=== PATIENT | female | born 1950 | race Caucasian/White ===

== ENCOUNTER 2017-02-16 13:50 | Inpatient (IN) ==
[2017-02-16 14:30] LABS: Platelet Count 301 K/mcL (140-400)
[2017-02-16] MEDS ORDERED: Ipratropium/Albuterol Neb 3 ML IH ONE (14:31)
[2017-02-16] MEDS ORDERED: methylPREDNISolone 125 MG/2 ML VIAL IVP ONE (14:31)
[2017-02-16 14:32] LABS: Hemoglobin 9.2 g/dL (11.5-15.4); Mean Corpuscular HGB Conc 27.1 g/dL (31.6-35.5); Mean Corpuscular Hemoglobin 19.5 pg (28.0-33.3); Mean Corpuscular Volume 72.2 fL (83.0-100.0); Red Blood Count 4.71 M/mcL (3.82-4.97); Red Cell Distribution Width 21.7 % (11.5-14.5)
--- NOTE | 2017-02-16 14:33 | Emergency Department Note ---
Disposition Clinical Impression: Acute exacerbation of chronic obstructive pulmonary disease (COPD), Hypoxemia Dyspnea Qualifiers: Dyspnea type: unspecified Qualified Code(s): R06.00 - Dyspnea, unspecified Disposition: Admitted As Inpatient Forms: ED Satisfaction Letter SOB HPI - General Chief Complaint: ED Chest Pain Stated Complaint: CHRISTIANO/CP for 1 week Time Seen by Provider: 02/16/17 14:01 Source: patient Limitations: no limitations Nursing Notes Reviewed: Yes Vital Signs Reviewed: Yes - History of Present Illness Pt Subjective Complaint: shortness of breath Onset (ago): week(s) (2) Severity: moderate Consistency/Duration: constant, gradually worsening Improves with: oxygen, rest, bronchodilators Worsens with: exertion Known history of: COPD Associated symptoms: Reports: wheezing. Denies: chest pain, fever Treatment prior to arrival: oxygen, bronchodilator Cough present: Yes Cough Description: Involuntary Cough Frequency: Intermittent Sputum production: No - Related Data Home oxygen amount: 2 liters Home Medications Medication Instructions Recorded Confirmed Acetaminophen/Diphenhydramine 2 tab PO HS PRN 10/22/16 10/22/16 [Acetaminophen Pm Caplet] Albuterol Sulfate [Albuterol 2 puff IH Q6H PRN 10/22/16 10/22/16 Inhaler] Amantadine HCl [Amantadine] 100 mg PO BID 10/22/16 10/22/16 Amlodipine [Norvasc] 5 mg PO DAILY 10/22/16 10/22/16 Aspirin [Lo-Dose Aspirin EC] 81 mg PO DAILY 10/22/16 10/22/16 Atorvastatin Calcium [Atorvastatin 20 mg PO DAILY 10/22/16 10/22/16 Calcium] Cilostazol [Pletal] 100 mg PO BID 10/22/16 10/22/16 Diclofenac Potassium [Diclofenac 50 mg PO BID 10/22/16 10/22/16 Potassium] Furosemide [Lasix] 20 mg PO DAILY 10/22/16 10/22/16 Gabapentin [Gabapentin] 600 mg PO TID 10/22/16 10/22/16 HydrOXYzine Pamoate [HydrOXYzine 50 mg PO Q6H PRN 10/22/16 10/22/16 Pamoate] Isosorbide DInitrate [Isosorbide 30 mg PO BID 10/22/16 10/22/16 Dinitrate] Loperamide HCl [Anti-Diarrheal] 2 mg PO AD PRN 10/22/16 10/22/16 Magnesium Oxide [Mag-Ox] 400 mg PO BID 10/22/16 10/22/16 Metformin [Glucophage] 1,000 mg PO BID 10/22/16 10/22/16 Metoprolol Tartrate [Metoprolol 25 mg PO BID 10/22/16 10/22/16 Tartrate] Omeprazole [PriLOSEC] 20 mg PO DAILY 10/22/16 10/22/16 Oxycodone HCl/Acetaminophen 1 tab PO Q8H PRN 10/22/16 10/22/16 [Percocet 5-325 mg Tablet] Ranolazine [Ranexa] 1,000 mg PO BID 10/22/16 10/22/16 Rivaroxaban [Xarelto] 20 mg PO DAILY 10/22/16 10/22/16 Umeclidinium Brm/Vilanterol Tr 1 puff IH DAILY 10/22/16 10/22/16 [Anoro Ellipta 62.5-25 Mcg INH] Previous Rx's Medication Instructions Recorded Amlodipine [Norvasc] 10 mg PO DAILY #30 tablet 10/22/16 Atorvastatin [Lipitor] 20 mg PO HS 30 Days 10/22/16 Cilostazol [Pletal] 100 mg PO BID 30 Days 10/22/16 Furosemide [Lasix] 20 mg PO ONCE PRN 30 Days 10/22/16 HydrOXYzine 10 mg PO TID PRN 30 Days 10/22/16 Isosorbide DInitrate [Isosorbide 30 mg PO BID 30 Days 10/22/16 Dinitrate] Metformin HCl [Fortamet] 1,000 mg PO BID 30 Days 10/22/16 Metoprolol [Lopressor] 25 mg PO BID 30 Days 10/22/16 Omeprazole 20 mg PO DAILY 30 Days 10/22/16 Potassium Chloride 10 meq PO DAILY 30 Days 10/22/16 Ranolazine [Ranexa] 500 mg PO BID 30 Days 10/22/16 Rivaroxaban [Xarelto] 20 mg PO DAILY 30 Days 10/22/16 ClonazePAM [Klonopin] 0.5 mg PO TID PRN #60 tablet 10/23/16 Allergies Allergy/AdvReac Type Severity Reaction Status Date / Time No Known Allergies Allergy Verified 02/16/17 13:59 All systems ED: reviewed and negative except as stated. Constitutional: Denies: fever, chills, weakness Gastrointestinal: Reports: abdominal pain Past Medical History - Past Medical History Source: patient, old records reviewed, nursing notes reviewed Medical history: Reports: CHF, COPD, coronary artery disease, DVT, hyperlipidemia, hypertension, myocardial infarction, peripheral artery disease, other Surgical history: Reports: hysterectomy, knee replacement, other, vascular surgery, LE bypass Psychiatric history: Reports: anxiety, depression - Social History Smoking Status: Current every day smoker Smokeless Tobacco Status: No Alcohol use: Reports: none Drug use: Reports: none Physical Exam - General Limitations: no limitations General appearance: alert, in no apparent distress - Head Head exam: atraumatic, normocephalic, normal inspection - Eye Eye exam: Present: normal appearance, PERRL, EOMI - Expanded Eye Exam Pupils: Left: reactive - ENT ENT exam: normal exam, normal oropharynx, mucous membranes moist - Expanded ENT Exam External ear exam: Present: normal external inspection Mouth exam: Present: normal external inspection Teeth exam: Present: normal inspection Throat exam: Present: normal inspection - Neck Neck exam: Present: normal inspection, full ROM, trachea midline - Chest Chest inspection: Present: normal inspection, symmetric chest wall rise - Respiratory Respiratory exam: Present: wheezes (bilat scattered rhonchi), prolonged expiratory phase. Absent: respiratory distress, accessory muscle use - Cardiovascular Cardiovascular exam: Present: regular rate, normal rhythm, normal heart sounds - Abdominal Exam Abdominal exam: Present: soft, tenderness. Absent: distention, guarding, rebound, rigidity Abdominal tenderness: Present: diffuse, mild - Extremities Exam Extremities exam: Present: normal inspection, full ROM. Absent: tenderness, pedal edema - Expanded Upper Extremity Exam Shoulder exam: Present: normal inspection, full ROM Arm exam: Present: normal inspection, full ROM Elbow exam: Present: normal inspection, full ROM Forearm/Wrist exam: Present: normal inspection, full ROM Hand exam: Present: normal inspection, full ROM Vascular exam: Normal: capillary refill, radial pulse - Expanded Lower Extremity Exam Hip/Pelvis exam: Present: normal inspection, full ROM Upper leg exam: Present: normal inspection, full ROM Knee exam: Present: normal inspection, full ROM Lower leg exam: Present: normal inspection, full ROM Ankle exam: Present: normal inspection, full ROM Foot/toe exam: Present: normal inspection, full ROM Neurovascular/Tendon exam: Absent: motor deficit, sensory deficit, tendon deficit - Back Exam Back exam: Present: normal inspection, full ROM. Absent: tenderness - Neurological Exam Neurological exam: Present: alert, oriented X3 - Expanded Neurological Exam Patient oriented to: Present: person, place, time Coma Scale Eye Opening: Spontaneous Coma Scale Motor Response: Obeys Commands Coma Scale Verbal Response: Oriented Coma Scale Total: 15 - Psychiatric Psychiatric exam: Present: normal affect, normal mood - Skin Skin exam: Present: warm, dry, intact, normal color Course - Reevaluation(s) Reevaluation #1: patient O2 sats drop to 80% while sleeping on NC oxygen Time: 16:38 Vital Signs Temperature 97.2 F L 02/16/17 13:57 Pulse Rate 99 02/16/17 13:57 Respiratory Rate 16 02/16/17 13:57 Blood Pressure 142/91 02/16/17 13:57 O2 Sat by Pulse Oximetry 94 L 02/16/17 13:57 Temperature 97.2 F L 02/16/17 13:57 Pulse Rate 99 02/16/17 13:57 Respiratory Rate 20 02/16/17 14:38 Blood Pressure 142/91 02/16/17 13:57 O2 Sat by Pulse Oximetry 98 02/16/17 14:38 Oxygen Delivery Oxygen Delivery Room Air Shortness of Breath/Dyspnea - Differential Diagnosis Likely: acute exacerbation of chronic obstructive airways disease, congestive heart failure, pneumonia, asthma with exacerbation, pulmonary embolism, pneumothorax, arrhythmia - Medical Records Medical records reviewed: Yes I reviewed the patient's medical records. - Lab Data Lab results reviewed: Yes I reviewed the patient's lab results. Result diagrams: 02/16/17 14:23 02/16/17 14:23 Lab Results 02/16/17 02/16/17 02/16/17 Range/Units 14:23 14:23 14:23 WBC 8.2 (4.3-11.1) K/mcL RBC 4.71 (3.82-4.97) M/mcL Hgb 9.2 L (11.5-15.4) g/dL Hct 34.0 L (35.3-44.9) % MCV 72.2 L (83.0-100.0) fL MCH 19.5 L (28.0-33.3) pg MCHC 27.1 L (31.6-35.5) g/dL RDW 21.7 H (11.5-14.5) % Plt Count 301 (140-400) K/mcL MPV 9.0 L (9.4-12.4) fL Seg Neutrophils % 76.0 % Band Neutrophils % 2.0 (0-4) % Lymphocytes % 12.0 % Monocytes % 8.0 % Eosinophils % 2.0 % Neutrophils # 6.4 (1.6-8.9) K/mcL Lymphocytes # 1.0 (0.6-4.6) K/mcL Monocytes # 0.7 (0.0-1.3) K/mcL Eosinophils # 0.2 (0.0-0.6) K/mcL Platelet Estimate Normal (Normal) Polychromasia 1+ A (Not Present) Hypochromasia Present A (Not Present) Poikilocytosis 1+ A (Not Present) Anisocytosis 2+ A (Not Present) Microcytosis Present A (Not Present) PT 44.7 H* (9.4-12.1) Seconds INR 4.0 APTT 40.1 H (26.0-36.0) Seconds Sodium 142 (136-145) mEq/L Potassium 3.3 L (3.5-4.5) mEq/L Chloride 103 (98-109) mEq/L Carbon Dioxide 27 (19-29) mEq/L BUN 8 (7-20) mg/dL Creatinine 0.62 (0.57-1.11) mg/dL Est GFR ( Amer) > 60 (> 60) Est GFR (Non-Af Amer) > 60 (> 60) BUN/Creatinine Ratio 13 (6-26) Glucose 130 H (70-99) mg/dL Calculated Osmolality 294 (280-300) Calcium 9.0 (8.6-10.8) mg/dL Total Bilirubin 0.8 (0.2-1.2) mg/dL Direct Bilirubin 0.3 (0.0-0.5) mg/dL Indirect Bilirubin 0.5 (0.0-1.2) mg/dL AST 11 (5-34) Units/L ALT 10 (0-55) Units/L Alkaline Phosphatase 67 (38-126) Units/L Serum Total Protein 7.1 (6.0-8.3) g/dL Albumin 3.1 L (3.5-5.0) g/dL Globulin 4.0 H (2.4-3.5) g/dL Albumin/Globulin Ratio 0.8 L (1.1-2.2) Amylase 26 (25-125) Units/L Lipase 10 (8-78) Units/L
[2017-02-16 14:38] LABS: Activated Partial Thrombo Time 40.1 Seconds (26.0-36.0)
[2017-02-16 14:45] LABS: Alanine Aminotransferase 10 Units/L (0-55); Albumin 3.1 g/dL (3.5-5.0); Albumin/Globulin Ratio 0.8 (1.1-2.2); Alkaline Phosphatase 67 Units/L (38-126); Amylase 26 Units/L (25-125); Aspartate Amino Transferase 11 Units/L (5-34); BUN/Creatinine Ratio 13 (6-26); Bilirubin,Direct 0.3 mg/dL (0.0-0.5); Bilirubin,Indirect 0.5 mg/dL (0.0-1.2); Bilirubin,Total 0.8 mg/dL (0.2-1.2); Blood Urea Nitrogen 8 mg/dL (7-20); Carbon Dioxide 27 mEq/L (19-29); Chloride 103 mEq/L (98-109); Glucose 130 mg/dL (70-99); Lipase 10 Units/L (8-78); Osmolality,Calculated 294 (280-300); Potassium 3.3 mEq/L (3.5-4.5); Sodium 142 mEq/L (136-145); Total Protein 7.1 g/dL (6.0-8.3); eGFR For African Americans > 60 (> 60); eGFR For Non-African Americans > 60 (> 60)
[2017-02-16 14:55] LABS: Prothrombin Time 44.7 Seconds (9.4-12.1)
[2017-02-16 15:33] LABS: Eosinophils # 0.2 K/mcL (0.0-0.6); Hypochromasia Present (Not Present); Monocytes # 0.7 K/mcL (0.0-1.3); Neutrophils # 6.4 K/mcL (1.6-8.9); Platelet Estimate Normal (Normal); Polychromasia 1+ (Not Present)
[2017-02-16 15:34] LABS: Anisocytosis 2+ (Not Present); Microcytosis Present (Not Present); Poikilocytosis 1+ (Not Present)
[2017-02-16] MEDS ORDERED: Levofloxacin 750 MG/150 ML 750 MG/150 ML BAG IVPB ONE (16:31)
--- NOTE | 2017-02-16 20:53 | Internal Med History&Physical ---
<Heavenly Stauffer - Last Filed: 02/17/17 19:39> Date of Encounter: 02/17/17 Time of Encounter: 20:36 Assessment and Plan (1) Acute and chronic respiratory failure with hypoxia Current visit: Yes Status: Acute O2 sats in the 80s without O2, 94% with 4L, increased O2 need from baseline CXR- CTT:trace b/l pleural effusions bronchodilator therapy IV steriods levaquin ABG O2 prn sats>90 (2) Acute exacerbation of chronic obstructive pulmonary disease (COPD) Current visit: Yes Status: Acute (3) Chest pain Current visit: No Status: Acute high risk, prior NH, Afib, PVD, CHF, CAD, HTN,HLD continue home rivaxiban EKG troponin BNP consider ECHO Qualifiers: Chest pain type: other chest pain Qualified Code(s): R07.89 - Other chest pain; R07.8 - Other chest pain (4) History of pulmonary embolism Current visit: No Status: Chronic (5) COPD (chronic obstructive pulmonary disease) Current visit: No Status: Chronic Qualifiers: COPD type: unspecified COPD Qualified Code(s): J44.9 - Chronic obstructive pulmonary disease, unspecified (6) Peripheral vascular disease Current visit: No Status: Chronic (7) HTN (hypertension) Current visit: No Status: Chronic Qualifiers: Hypertension type: essential hypertension Qualified Code(s): I10 - Essential (primary) hypertension (8) HLD (hyperlipidemia) Current visit: No Status: Chronic Qualifiers: Hyperlipidemia type: mixed hyperlipidemia Qualified Code(s): E78.2 - Mixed hyperlipidemia (9) DVT prophylaxis Current visit: No Status: Acute (10) Ischemic rest pain of lower extremity Current visit: No Status: Acute (11) Tobacco abuse Current visit: No Status: Chronic nicotine patch prn (12) Atrial fibrillation with RVR Current visit: No Status: Acute (13) Hypokalemia Current visit: No Status: Acute 3.3 replace recheck (14) Anxiety Current visit: No Status: Acute (15) Dyspnea Current visit: Yes Status: Acute Qualifiers: Dyspnea type: unspecified Qualified Code(s): R06.00 - Dyspnea, unspecified (16) Anemia Current visit: Yes Status: Acute Hb 9.2 Hct 34 iron profile Fe supplement recheck H/H Qualifiers: Anemia type: unspecified type Qualified Code(s): D64.9 - Anemia, unspecified (17) Abdominal pain Current visit: Yes Status: Acute CT evidence of abd/pelvic ascites, thickening of colon wall check [place] Qualifiers: Abdominal location: left lower quadrant Qualified Code(s): R10.32 - Left lower quadrant pain Internal Medicine - H&P: HPI Chief complaint: shortness of breath Admitted From: Home Plans for Post Hospital Care: Home History of present illness: Ms. Costa is a 66 year old female c/o SOB. PMH CHF,DVT,CAD,NH,PVD, COPD, DM, HLD with c/o SOB. Pt states that tis started approximately 2 weeks ago and is associated with green productive cough which is constant throughout the day, usually worse at night. Pt states she is SOB at baseline and wears 2L O2 everynight. O2 and inhalers usually improve SOB, but states these have not been helping as much the past few weeks. SHe also states pain with inspiration. Pt states she has also been having lower abdominal pain on and off with nausea as well. Pt does not relate the pain to eating or any other inciting factor. SHe states that it comes at random times, is not relieved by anything and lasts anywhere from a few minutes to all day before it resolves itself. Pt admits to R LE numbness which has been chronic since stenting of that leg. Also admits to L LE pain with walking, from the thigh down relieved with rest. Admits to recently starting nightsweats, 30lb weight loss in passed 6 months, and chills. Continues to smoke, cut back from 3ppd x50yrs to 1/2ppd this year.Denies hemoptysis, V/C/D, no blood in stools, change in urinary habits. Past Med Surg Social Fam HX - Past Medical History Medical history: CHF, COPD, coronary artery disease, DVT, hyperlipidemia, hypertension, myocardial infarction, peripheral artery disease, other Psychiatric history: anxiety, depression - Past Surgical History Surgical History: hysterectomy, knee replacement, other, vascular surgery, LE bypass - Social History Smoking Status: Current every day smoker Packs per day: [id number] years, now 1/2ppd Smokeless Tobacco Status: No Alcohol use: none Drug use: none Occupational status: retired Current living situation: Home Activity Level: Independent ambulation - Family History Mother Adopted: No Hx Family Cardiac Disorders: Yes Hx Family Respiratory Disorders: Yes Hx Family Cancer: No Hx Family GI Disorders: No Hx Family Endocrine Disorder: Yes Hx Family Neuromuscular Disorders: No Hx Family Neurologic Disorders: No Hx Family HEENT Disorders: No Hx Family Autoimmune Disorders: No Father Hx Family Cancer: Yes Hx Family Endocrine Disorder: Yes (diabetes) Internal Medicine - H&P: Meds Albuterol Sulfate [Albuterol Inhaler] 2 puff IH Q4H PRN 10/22/16 [History] Aspirin [Lo-Dose Aspirin EC] 81 mg PO DAILY 10/22/16 [History] Furosemide [Lasix] 20 mg PO DAILY 10/22/16 [History] Gabapentin [Gabapentin] 600 mg PO TID 10/22/16 [History] Isosorbide DInitrate [Isosorbide Dinitrate] 30 mg PO BID 10/22/16 [History] Metformin [Glucophage] 1,000 mg PO BID 10/22/16 [History] Omeprazole [PriLOSEC] 20 mg PO DAILY 10/22/16 [History] Oxycodone HCl/Acetaminophen [Percocet 5-325 mg Tablet] 1 tab PO Q6H PRN [History] Ranolazine [Ranexa] 500 mg PO BID 30 Days 10/22/16 [Rx] Rivaroxaban [Xarelto] 20 mg PO DAILY 10/22/16 [History] Umeclidinium Brm/Vilanterol Tr [Anoro Ellipta 62.5-25 Mcg INH] 1 each IH DAILY 10/22/16 [History] Atorvastatin Calcium [Lipitor] 80 mg PO HS 02/16/17 [History] ClonazePAM [Klonopin] 0.5 - 1 mg PO BID PRN 02/16/17 [History] Metoprolol [Lopressor] 50 mg PO BID 02/16/17 [History] Vortioxetine Hydrobromide [Trintellix] 10 mg PO DAILY 02/16/17 [History] Allergies No Known Allergies Allergy (Verified 02/16/17 13:59) All Systems PM: A 10-system review of systems was performed and is negative for pertinent findings except as documented above in the HPI. - Constitutional Constitutional: anorexia, chills, fatigue, fever(s), night sweats, weight loss, no falls - EENT Eyes: no change in vision, no discharge, no pain, no photophobia - Cardiovascular Cardiovascular ROS IM: chest pain, no lightheadedness, no palpitations, no syncope - Respiratory Respiratory: cough, dyspnea, dyspnea on exertion, wheezing, pain on inspiration , chest congestion, excessive phlegm production, change in phlegm color, no hemoptysis - Gastrointestinal Gastrointestinal: nausea, no hematemesis, no hematochezia, no melena, no vomiting - Genitourinary Genitourinary: no change in urinary stream, no dysuria, no flank pain, no hematuria - Musculoskeletal Musculoskeletal ROS IM: numbness (RLE), no tingling - Integumentary Integumentary IM: no rash, no unusual bruising - Neurological Neurological ROS: numbness (RLE), no confusion, no convulsions, no focal weakness, no tingling, no tremor(s) - Constitutional Vitals: Temp Pulse Resp BP Pulse Ox 98.2 F 84 22 129/69 95 02/16/17 20:07 02/16/17 20:07 02/16/17 20:07 02/16/17 20:07 02/16/17 20:07 General appearance: Present: A&O X 3, no acute distress, answers questions appropriately - Head Head exam: Present: atraumatic, normocephalic - Eye Eye exam: Present: PERRL, conjuntiva pink, sclera anicteric Pupils: Present: PERRL - ENT ENT exam: Present: mucous membranes dry - Neck Neck exam general surgery: Present: supple, trachea midline. Absent: lymphadenopathy - Respiratory Respiratory exam: Present: decreased breath sounds, rales, wheezes. Absent: accessory muscle use, chest wall tenderness Additional comments: on 4 L O2 per NC - Expanded Respiratory Exam Location: decreased breath sounds: Left, Right, Lower, rales: Left, Right, Lower , wheezes: Left, Right, Lower, Upper - Cardiovascular Cardiovascular exam: Present: RRR, +S1, +S2. Absent: diastolic murmur, gallop, rubs, systolic murmur - GI/Abdominal GI/Abdominal exam: Present: normal bowel sounds, soft, tenderness (LLQ RLQ), no peritoneal signs - Extremities Exam Extremities exam: Present: warm. Absent: calf tenderness, cyanotic, pedal edema , tenderness Additional comments: diminished popliteal and PT pulses b/L LE thin skin with hair loss thickened toe nails - Neurological Exam Neurological exam: Present: CN II-XII intact, oriented X3, no focal deficits. Absent: facial droop - Skin Skin exam: Present: dry, intact, pallor. Absent: cyanosis, diaphoretic Internal Med - H&P Results - Labs CBC & Chem 7: 02/17/17 06:05 02/17/17 06:05 <González Johnson - Last Filed: 02/17/17 19:49> Date of Encounter: 02/16/17 Internal Medicine - H&P: HPI History of present illness: Ms. Costa is a 66 year old female All Systems PM: A 10-system review of systems was performed and is negative for pertinent findings except as documented above in the HPI. - Constitutional Vitals: Temp Pulse Resp BP Pulse Ox 97.7 F 83 18 138/87 97 02/17/17 19:40 02/17/17 19:40 02/17/17 19:40 02/17/17 19:40 02/17/17 19:40 Internal Med - H&P Results - Labs CBC & Chem 7: 02/17/17 06:05 02/17/17 06:05 Labs: Short CBC 02/17/17 Range/Units 06:05 WBC 6.1 (4.3-11.1) K/mcL Hgb 8.4 L (11.5-15.4) g/dL Hct 30.5 L (35.3-44.9) % Plt Count 296 (140-400) K/mcL BMP 02/17/17 06:05 Sodium 140 Potassium 4.1 Chloride 102 Carbon Dioxide 28 BUN 23 H D Creatinine 0.75 Glucose 230 H Calcium 10.0 Cardiac Enzymes 02/17/17 02/17/17 Range/Units 06:05 11:33 Troponin I 0.01 0.01 (0-0.03) ng/mL - Attending Attestation I performed history and physical examination of the patient and discussed his management with the Resident/Drapery Estimator. I reviewed the residents note and agree with the documented findings and plan of care, with additions as below. 66 Y/F with h/o COPD, chronic resp failure on home O2 presents with shortness of breath and cough with green sputum. Apparently had O2 sats of about 80% on 2LPM O2. She has h/o A Fib on xarelto for anticoagulation. She also reports Left lower abdominal pain and loose stool. O/E: Occasional wheeze present. LLQ abdominal tenderness present. EKG personally reviewed by me. CXR reported negative portable chest. CT scan of the abdomen and pelvis shows small amount of abdominal and pelvic ascites. Mural thickening of the right colon for which localized colitis could be considered. A/P: Treat COPD exacerbation with time levofloxacin, methylprednisolone and bronchodilators. GI consult for colitis. Will check stool culture; c diff. Add metronidazole.
[2017-02-16] MEDS ORDERED: *HR* Promethazine 25 MG/ML VIAL IVP PRN (21:49)
[2017-02-16] MEDS ORDERED: Albuterol 2.5 MG/3 ML NEBULIZER IH PRN (22:04)
[2017-02-16] MEDS ORDERED: Ipratropium/Albuterol Neb 3 ML IH PRN (22:04)
[2017-02-16] MEDS: Budesonide/Formoterol 160/4.5 MDI IH SCH (22:41)
[2017-02-16] MEDS: clonazePAM 0.5 MG TABLET PO PRN (22:50)
[2017-02-16] MEDS: *HR* OxyCODONE/APAP 5/325 TABLET PO PRN (22:50)
[2017-02-16] MEDS ORDERED: Dextrose Gel 15 GM PO PRN ×2 (23:00)
[2017-02-16] MEDS ORDERED: *HR* Dextrose 50 % in Water (Syg) 50 ML SYRINGE IVP PRN (23:00)
[2017-02-16 23:18] LABS: Hemoglobin A1C 5.4 %
[2017-02-16 23:31] LABS: ABG Oxygen Saturation 95 % (95-98); ABG PCO2 38 mmHg (35-45); ABG PH 7.46 pH Units (7.32-7.45); ABG PO2 69 mmHg (85-104); ABG TCO2 28.2 mEq/L (20-26)
[2017-02-16 23:32] LABS: Blood Gas FiO2 34 %
[2017-02-16] MEDS: Gabapentin 300 MG CAPSULE PO SCH (23:48)
[2017-02-16] MEDS: methylPREDNISolone 125 MG/2 ML VIAL IVP SCH (23:49)
[2017-02-17] MEDS: Insulin LISPRO 300 UNITS/3 ML VIAL SQ SCH ×5 (00:14→20:42)
[2017-02-17 01:25] LABS: Hematocrit 32.6 % (35.3-44.9); Hemoglobin 8.9 g/dL (11.5-15.4)
[2017-02-17 06:30] LABS: Hemoglobin 8.4 g/dL (11.5-15.4); Mean Corpuscular Volume 71.6 fL (83.0-100.0)
[2017-02-17] MEDS ORDERED: Pantoprazole 40 MG VIAL IVP SCH (06:30)
[2017-02-17 06:32] LABS: Hematocrit 30.5 % (35.3-44.9); Mean Corpuscular HGB Conc 27.5 g/dL (31.6-35.5); Mean Corpuscular Hemoglobin 19.7 pg (28.0-33.3); Mean Platelet Volume 9.8 fL (9.4-12.4); Platelet Count 296 K/mcL (140-400); Red Blood Count 4.26 M/mcL (3.82-4.97)
[2017-02-17 06:41] LABS: % Iron Saturation 3 % (15-50); Iron 12 mcg/dL (50-170); Transferrin 326 mg/dL (180-382)
[2017-02-17 06:53] LABS: BUN/Creatinine Ratio 31 (6-26); Carbon Dioxide 28 mEq/L (19-29); Chloride 102 mEq/L (98-109); Chol/HDL Ratio 3.2 (0-4.9); Cholesterol 90 mg/dL (< 200); Glucose 230 mg/dL (70-99); HDL Cholesterol 28 mg/dL (40-59); LDL Cholesterol,Calculated 49 mg/dL (0-99); Osmolality,Calculated 301 (280-300); Potassium 4.1 mEq/L (3.5-4.5); Sodium 140 mEq/L (136-145); Triglycerides 65 mg/dL (< 150); eGFR For African Americans > 60 (> 60); eGFR For Non-African Americans > 60 (> 60)
[2017-02-17 06:54] LABS: Blood Urea Nitrogen 23 mg/dL (7-20)
[2017-02-17] MEDS: *HR* Rivaroxaban 10 MG TABLET PO SCH (08:02)
[2017-02-17] MEDS: Aspirin Enteric Coated 81 MG Tablet PO SCH (08:02)
[2017-02-17] MEDS: Lactobacillus 1 EACH CAP.SPRINK PO SCH ×2 (08:02→20:41)
[2017-02-17] MEDS: Ranolazine 500 MG TAB.ER.12H PO SCH ×2 (08:03→20:40)
[2017-02-17] MEDS: Gabapentin 300 MG CAPSULE PO SCH ×3 (08:03→20:39)
[2017-02-17] MEDS: methylPREDNISolone 125 MG/2 ML VIAL IVP SCH ×3 (08:03→23:28)
[2017-02-17] MEDS: *HR* OxyCODONE/APAP 5/325 TABLET PO PRN ×2 (08:23→20:39)
[2017-02-17] MEDS: clonazePAM 0.5 MG TABLET PO PRN ×2 (10:02→20:39)
--- NOTE | 2017-02-17 10:44 | Gastroenterology Consult Note ---
<BerryMynor Suarez - Last Filed: 02/17/17 10:42> Date of Encounter: 02/17/17 Time of Encounter: 09:45 - Assessment and plan (1) Anemia Status: Acute Assessment and plan: Hgb 8.4 this AM, 9.2 on admission. Continue to monitor CBC and transfuse PRBC as needed. Iron level 12, check ferritin. Plan for colonoscopy on Monday, and likely EGD as well. Qualifiers: Anemia type: unspecified type Qualified Code(s): D64.9 - Anemia, unspecified (2) Abdominal pain Status: Acute Assessment and plan: CT A/P with small amount of abdominal and pelvic ascites and mural thickening in right colon. Plan for colonoscopy on Monday. Clear liquid diet Monday, no red or purple. NPO at midnight Monday night. If unable tolerate NuLytely please use MiraLAX prep. If not clear by 6 AM Monday, give 2 tap water enemas. Qualifiers: Abdominal location: lower abdomen, unspecified Qualified Code(s): R10.30 - Lower abdominal pain, unspecified (3) Acute exacerbation of chronic obstructive pulmonary disease (COPD) Status: Acute Assessment and plan: Management per primary team. (4) History of pulmonary embolism Status: Chronic - Time Spent With Patient Total time spent is greater than 50% in coordination of care (as documented) at patient's floor/unit and/or counseling patient: GI History of Present Illness - Data of Consult Patient: new to practice Consult date: 02/17/17 Requesting Physician: Nirav Hernandez DO - Consult Narrative Reason for consult: mural thickening of right colon History of present illness: Ms. Costa is a 66 year old female with PMHx of CHF, COPD, CAD, DVT, HLD, HTN, [place] , PVD, who presented with SOB that started 2 weeks before presentation. She also reports lower abdominal pain and intermittent nausea. No aggrevating factors noted. The pain occurs randomly and lasts from a few minutes to all day , and then resolves. CT A/P with small amount of abdominal and pelvic ascites and mural thickening in right colon. She denies melena or hematochezia. Procedures: None NSAIDs: ASA Anticoagulation: Xarelto Past Med Surg Social Fam HX - Past Medical History Medical history: CHF, COPD, coronary artery disease, DVT, hyperlipidemia, hypertension, myocardial infarction, peripheral artery disease, other Psychiatric history: anxiety, depression - Past Surgical History Surgical History: hysterectomy, knee replacement, other, vascular surgery, LE bypass - Social History Smoking Status: Current every day smoker Packs per day: [id number] years, now 1/2ppd Smokeless Tobacco Status: No Alcohol use: none Drug use: none - Family History Mother Adopted: No Hx Family Cardiac Disorders: Yes Hx Family Respiratory Disorders: Yes Hx Family Cancer: No Hx Family GI Disorders: No Hx Family Endocrine Disorder: Yes Hx Family Neuromuscular Disorders: No Hx Family Neurologic Disorders: No Hx Family HEENT Disorders: No Hx Family Autoimmune Disorders: No Father Hx Family Cancer: Yes Hx Family Endocrine Disorder: Yes (diabetes) - Gastrointestinal Gastrointestinal: Present: as per HPI - Constitutional Constitutional: as per HPI - EENT Eyes: as per HPI Ears: Present: as per HPI Nose, mouth and throat: Present: as per HPI - Cardiovascular Cardiovascular ROS: Present: as per HPI - Respiratory Respiratory IM: Present: as per HPI - Genitourinary Genitourinary: Absent: change in color, Urinary frequency - Neurological ROS Neurological GI: Present: as per HPI - Hematologic/Lymphatic Hematologic/Lymphatic pediatric: Present: as per HPI - Musculoskeletal Musculoskeletal ROS GI: Present: as per HPI - Integumentary Integumentary GI: Present: as per HPI - Psychiatric ROS Psychiatric GI: Present: as per HPI - Endocrine Endocrine IM: Present: as per HPI - Constitutional Vitals: Temp Pulse Resp BP Pulse Ox 98.9 F 83 18 110/66 94 L 02/17/17 07:53 02/17/17 07:53 02/17/17 07:53 02/17/17 07:53 02/17/17 07:53 General appearance: Present: cooperative, A&O X 3, no acute distress, answers questions appropriately - Head Head exam: Present: atraumatic, normocephalic - Eye Eye exam: Present: normal appearance, sclera anicteric - ENT ENT exam: Present: mucous membranes moist - Neck Neck exam general surgery: Present: normal inspection, trachea midline - Respiratory Respiratory exam: Present: decreased breath sounds, CTAB. Absent: rales, rhonchi - Cardiovascular Cardiovascular exam: Present: RRR, +S1, +S2 - GI/Abdominal GI/Abdominal exam: Present: soft, tenderness (RLQ, LLQ), no peritoneal signs. Absent: distended, firm, guarding - Rectal Rectal exam: Present: deferred - Extremities Exam Extremities exam: Present: warm - Neurological Exam Neurological exam: Present: no focal deficits - Psychiatric Psychiatric exam: Present: normal affect, normal mood - Skin Skin exam: Present: dry, intact, normal color, warm Results - Labs CBC & Chem 7: 02/17/17 06:05 02/17/17 06:05 Labs: Last Result Calcium 10.0 mg/dL (8.6-10.8) 02/17/17 06:05 Iron 12 mcg/dL (50-170) L 02/17/17 06:05 % Saturation 3 % (15-50) L 02/17/17 06:05 Transferrin 326 mg/dL (180-382) 02/17/17 06:05 Troponin I 0.01 ng/mL (0-0.03) 02/17/17 06:05 Triglycerides 65 mg/dL (< 150) 02/17/17 06:05 Entire Visit Hgb 8.4 g/dL (11.5-15.4) L 02/17/17 06:05 Hct 30.5 % (35.3-44.9) L 02/17/17 06:05 PT 44.7 Seconds (9.4-12.1) H* 02/16/17 14:23 Total Bilirubin 0.8 mg/dL (0.2-1.2) 02/16/17 14:23 AST 11 Units/L (5-34) 02/16/17 14:23 ALT 10 Units/L (0-55) 02/16/17 14:23 Amylase 26 Units/L (25-125) 02/16/17 14:23 Lipase 10 Units/L (8-78) 02/16/17 14:23 - ABG ABG results: ABG ABG pH 7.46 pH Units (7.32-7.45) H 02/16/17 23:20 ABG pCO2 38 mmHg (35-45) 02/16/17 23:20 ABG pO2 69 mmHg (85-104) L 02/16/17 23:20 ABG O2 Saturation 95 % (95-98) 02/16/17 23:20 PT/INR, D-dimer PT 44.7 Seconds (9.4-12.1) H* 02/16/17 14:23 Consult Discharge Plan - Plan Instructions: How to Stop Smoking (DC), Chronic Obstructive Pulmonary Disease ( DC), Anemia (DC) Referrals: Adonay Herrera DO [Primary Care Provider] - 03/03/17 12:30 pm Prescriptions: Ferrous Sulfate 325 mg PO BIDWM #60 tablet PredniSONE See Taper PO DAILY #36 tablet <Patricio Torrez - Last Filed: 03/02/17 20:34> Date of Encounter: 02/17/17 Time of Encounter: 12:00 - Time Spent With Patient Total time spent is greater than 50% in coordination of care (as documented) at patient's floor/unit and/or counseling patient: GI History of Present Illness - Data of Consult Requesting Physician: Felton Mendez - Consult Narrative History of present illness: Ms. Costa is a 66 year old female - Constitutional Vitals: Temp Pulse Resp BP Pulse Ox 98.6 F 62 16 117/62 99 02/21/17 15:00 02/21/17 15:00 02/21/17 15:00 02/21/17 15:00 02/21/17 15:00 Results - Labs CBC & Chem 7: 02/21/17 11:17 02/21/17 11:17 Labs: Last Result Calcium 8.7 mg/dL (8.6-10.8) 02/21/17 11:17 Iron 12 mcg/dL (50-170) L 02/17/17 06:05 % Saturation 3 % (15-50) L 02/17/17 06:05 Transferrin 326 mg/dL (180-382) 02/17/17 06:05 Ferritin 15 ng/ml (5-204) 02/17/17 11:33 Troponin I 0.01 ng/mL (0-0.03) 02/17/17 11:33 Triglycerides 65 mg/dL (< 150) 02/17/17 06:05 Entire Visit Hgb 8.3 g/dL (11.5-15.4) L 02/21/17 11:17 Hct 31.1 % (35.3-44.9) L 02/21/17 11:17 PT 16.8 Seconds (9.4-12.1) H D 02/20/17 05:29 Ferritin 15 ng/ml (5-204) 02/17/17 11:33 Total Bilirubin 0.8 mg/dL (0.2-1.2) 02/16/17 14:23 AST 11 Units/L (5-34) 02/16/17 14:23 ALT 10 Units/L (0-55) 02/16/17 14:23 Amylase 26 Units/L (25-125) 02/16/17 14:23 Lipase 10 Units/L (8-78) 02/16/17 14:23 - ABG ABG results: ABG ABG pH 7.46 pH Units (7.32-7.45) H 02/16/17 23:20 ABG pCO2 38 mmHg (35-45) 02/16/17 23:20 ABG pO2 69 mmHg (85-104) L 02/16/17 23:20 ABG O2 Saturation 95 % (95-98) 02/16/17 23:20 PT/INR, D-dimer PT 16.8 Seconds (9.4-12.1) H D 02/20/17 05:29 - Attending Attestation I examined this patient and my medical decision-making was reviewed with the GLASS TOUGHENING OPERATOR/PA/Advanced Practice Nurse/Resident Physician. I agree with the documented findings, disposition and treatment plan as described except to the extent set forth below.
[2017-02-17] MEDS: Budesonide/Formoterol 160/4.5 MDI IH SCH (11:03)
[2017-02-17] MEDS: Ipratropium/Albuterol Neb 3 ML IH SCH ×4 (14:22→23:56)
[2017-02-17] MEDS: Furosemide 20 MG TABLET PO SCH (15:36)
--- NOTE | 2017-02-17 15:52 | Internal Med Progress Note ---
<Mariama Lang - Last Filed: 02/17/17 16:09> Date of Encounter: 02/17/17 Time of Encounter: 15:31 - Assessment and plan (1) Acute exacerbation of chronic obstructive pulmonary disease (COPD) Current Visit: Yes Status: Acute Assessment and plan: Likely secondary to viral illness with acute decompensation of COPD. On arrival, O2 saturation was in 80s without O2, increased to 94% on 4L Chest xray with demonstration of trace bilateral pleural effusions Continue supplemental oxygen to maintain SpO2 > 88% Will change duonebs to scheduled Albuterol nebulizer PRN Continue IV steroids, day 2 of 5, will transition to oral as clinica picture improves Will hold oral inhaled steroid (symbicort) for now, will plan to resume prior to discharge Continue levaquin, will increase dose from 500 mg to 750 mg (day 2 of therapy) (2) Acute and chronic respiratory failure with hypoxia Current Visit: Yes Status: Acute Assessment and plan: Secondary to above Treatment as per previously mentioned (3) Chest pain Current Visit: No Status: Acute Assessment and plan: May be secondary to increased respiratory work vs ACS. Patient has significant history with previous LA, CHF, PVD, CAD, HTN and HLD Will continue home rivaxiban Troponin negative x 2 BNP with no elevation Will continue to monitor, may consider echo is pain returns Qualifiers: Chest pain type: other chest pain Qualified Code(s): R07.89 - Other chest pain; R07.8 - Other chest pain (4) Abdominal pain Current Visit: Yes Status: Acute Assessment and plan: Patient is having pain in lower left abdomen CT abdomen/pelvis with mild mural thickening in right colon GI consulted, appreciate input and expertise. Plan for colonoscopy. Patient to complete prep Monday, NPO at midnight and colonoscopy Monday. Will continue to monitor and follow. Qualifiers: Abdominal location: lower abdomen, unspecified Qualified Code(s): R10.30 - Lower abdominal pain, unspecified (5) HTN (hypertension) Current Visit: No Status: Chronic Assessment and plan: Stable. Continue home medications. Qualifiers: Hypertension type: essential hypertension Qualified Code(s): I10 - Essential (primary) hypertension (6) Peripheral vascular disease Current Visit: No Status: Chronic Assessment and plan: Stable. Continue home medications. (7) HLD (hyperlipidemia) Current Visit: No Status: Chronic Assessment and plan: Stable. Continue home medications. Qualifiers: Hyperlipidemia type: pure hypercholesterolemia Qualified Code(s): E78.00 - Pure hypercholesterolemia, unspecified (8) Anxiety Current Visit: No Status: Acute Assessment and plan: Stable. Continue home medication. (9) Atrial fibrillation with RVR Current Visit: No Status: Acute Assessment and plan: Currently rate controlled. Continue home medications. (10) Anemia Current Visit: Yes Status: Acute Assessment and plan: Hemoglobin 9.2 on admission, dropped to 8.4. No clear evidence of blood loss. Patient has reported unintentional weight loss. GI consulted, plan for colonoscopy Monday. Continue to monitor CBC. Qualifiers: Anemia type: unspecified type Qualified Code(s): D64.9 - Anemia, unspecified - Subjective Interval history: Patient seen and examined this morning. Patient admitted yesterday for increasing shortness of breath dysnpnea. She was treated for a COPD exacerbation with steroids, dupnebs and IV antibiotics. This morning she relates that for the last week she has been coughing up sputum which has been greenish-yellow in color. This is new for her as she normally does not cough up sputum. She has been using her duo neb in her nebulizer twice daily but has not been using her rescue inhaler with increased frequency. She states this was probably her mistake in not using her rescue inhaler prior to admission. She called her PCP and he informed her she should be evaluated at the ER. She states that she does wear 2L nasal canula at night but does not require oxygen during the day. She states she is currently feeling about the same with her breathing. She was able to tolerate her diet this morning with no nausea or vomiting. - Constitutional Vitals: Temp Pulse Resp BP Pulse Ox 98.6 F 71 18 130/75 99 02/17/17 15:19 02/17/17 15:19 02/17/17 15:19 02/17/17 15:19 02/17/17 15:19 General appearance: Present: A&O X 3, no acute distress, answers questions appropriately - Head Head exam: Present: atraumatic, normocephalic - Eye Eye exam: Present: normal appearance. Absent: conjunctival injection - ENT ENT exam: Present: mucous membranes moist, normal oropharynx - Neck Neck exam general surgery: Present: supple, trachea midline - Respiratory Respiratory exam: Present: wheezes (end expiratory wheezes scattered bilaterally ). Absent: CTAB, rales, rhonchi, stridor, tachypnea - Cardiovascular Cardiovascular exam: Present: RRR, +S1, +S2. Absent: clicks, diastolic murmur, gallop, rubs, systolic murmur - GI/Abdominal GI/Abdominal exam: Present: normal bowel sounds, soft, tenderness (left lower quadrant). Absent: distended, guarding, rebound, rigid - Extremities Exam Extremities exam: Present: normal capillary refill. Absent: pedal edema Internal Medicine: Result - Labs CBC & Chem 7: 02/17/17 06:05 02/17/17 06:05 Labs: Short CBC 02/17/17 Range/Units 06:05 WBC 6.1 (4.3-11.1) K/mcL Hgb 8.4 L (11.5-15.4) g/dL Hct 30.5 L (35.3-44.9) % Plt Count 296 (140-400) K/mcL BMP 02/17/17 06:05 Sodium 140 Potassium 4.1 Chloride 102 Carbon Dioxide 28 BUN 23 H D Creatinine 0.75 Glucose 230 H Calcium 10.0 Cardiac Enzymes 02/17/17 02/17/17 Range/Units 06:05 11:33 Troponin I 0.01 0.01 (0-0.03) ng/mL - ABG Interpretation ABG results: ABG ABG pH 7.46 pH Units (7.32-7.45) H 02/16/17 23:20 ABG pCO2 38 mmHg (35-45) 02/16/17 23:20 ABG pO2 69 mmHg (85-104) L 02/16/17 23:20 ABG O2 Saturation 95 % (95-98) 02/16/17 23:20 PT/INR, D-dimer PT 44.7 Seconds (9.4-12.1) H* 02/16/17 14:23 - VTE Reasons for not Prescribing Prophylaxis: Not indicated-Anticoagulated or INR therapeutic Consult Discharge Plan - Plan Referrals: Adonay Herrera DO [Primary Care Provider] - <Nirav Hernandez - Last Filed: 02/17/17 16:45> - Assessment and plan (1) Acute and chronic respiratory failure with hypoxia Current Visit: Yes Status: Acute (2) Acute exacerbation of chronic obstructive pulmonary disease (COPD) Current Visit: Yes Status: Acute (3) HLD (hyperlipidemia) Current Visit: No Status: Chronic Qualifiers: Hyperlipidemia type: mixed hyperlipidemia Qualified Code(s): E78.2 - Mixed hyperlipidemia (4) HTN (hypertension) Current Visit: No Status: Chronic Qualifiers: Hypertension type: essential hypertension Qualified Code(s): I10 - Essential (primary) hypertension (5) Abdominal pain Current Visit: Yes Status: Acute Qualifiers: Abdominal location: left lower quadrant Qualified Code(s): R10.32 - Left lower quadrant pain (6) Peripheral vascular disease Current Visit: No Status: Chronic (7) Tobacco abuse Current Visit: No Status: Chronic - Constitutional Vitals: Temp Pulse Resp BP Pulse Ox 98.6 F 71 18 130/75 96 02/17/17 15:19 02/17/17 15:19 02/17/17 16:05 02/17/17 15:19 02/17/17 16:05 Internal Medicine: Result - Labs CBC & Chem 7: 02/17/17 06:05 02/17/17 06:05 Labs: Short CBC 02/17/17 Range/Units 06:05 WBC 6.1 (4.3-11.1) K/mcL Hgb 8.4 L (11.5-15.4) g/dL Hct 30.5 L (35.3-44.9) % Plt Count 296 (140-400) K/mcL BMP 02/17/17 06:05 Sodium 140 Potassium 4.1 Chloride 102 Carbon Dioxide 28 BUN 23 H D Creatinine 0.75 Glucose 230 H Calcium 10.0 Cardiac Enzymes 02/17/17 02/17/17 Range/Units 06:05 11:33 Troponin I 0.01 0.01 (0-0.03) ng/mL - ABG Interpretation ABG results: ABG ABG pH 7.46 pH Units (7.32-7.45) H 02/16/17 23:20 ABG pCO2 38 mmHg (35-45) 02/16/17 23:20 ABG pO2 69 mmHg (85-104) L 02/16/17 23:20 ABG O2 Saturation 95 % (95-98) 02/16/17 23:20 PT/INR, D-dimer PT 44.7 Seconds (9.4-12.1) H* 02/16/17 14:23 - Attending Attestation I examined this patient and my medical decision-making was reviewed with the Resident Physician on 02/17/17. I agree with the documented findings, disposition and treatment plan as described except to the extent set forth below. Ms Costa is currently admitted for acute exac COPD with hypoxemia. She is moderate to high risk due to potential for worsening respiratory status. Ms. Costa is up and walking in her room. She was upset this morning about isolation. She has no diarrhea. She is to have scope on Monday. Exam Alert. Comfortable Heart reg Scant rhonchi I/P 1. Acute and chronic hypoxic resp failure 2. Acute exac COPD Further diagnoses and plan as above.
[2017-02-17] MEDS: Levofloxacin 750 MG/150 ML 750 MG/150 ML BAG IVPB SCH (17:16)
[2017-02-17] MEDS ORDERED: Levofloxacin 500 MG/100 ML 500 MG/100 ML BAG IVPB SCH (18:00)
--- NOTE | 2017-02-17 20:34 | Electrocardiograph Report ---
[place] [id number] Test Date: 2017-02-16 Pat Name: Ilene Costa Department: 103 Room: 2A25 Gender: F Apprenticeship Consultant: MADELINE : 1950 Requested By: Nirav Hernandez Order Number: [id number] [place] MD: Bertrand Babcock MD Measurements Intervals [place] Rate: 118 P: CA: 0 QRS: 75 QRSD: 105 T: 2 QT: 398 QTc: 468 Interpretive Statements ATRIAL FIBRILLATION WITH RAPID VENTRICULAR RESPONSE Electronically Signed On 02-17-2017 20:32:23 EDT by Bertrand Babcock MD
[2017-02-18] MEDS: Ipratropium/Albuterol Neb 3 ML IH SCH ×6 (03:34→23:16)
[2017-02-18] MEDS: *HR* OxyCODONE/APAP 5/325 TABLET PO PRN ×3 (05:59→21:02)
[2017-02-18] MEDS: Insulin LISPRO 300 UNITS/3 ML VIAL SQ SCH ×5 (08:00→21:04)
[2017-02-18] MEDS: Aspirin Enteric Coated 81 MG Tablet PO SCH (08:03)
[2017-02-18] MEDS: *HR* Rivaroxaban 10 MG TABLET PO SCH (08:03)
[2017-02-18] MEDS: Lactobacillus 1 EACH CAP.SPRINK PO SCH ×2 (08:03→21:03)
[2017-02-18] MEDS: Furosemide 20 MG TABLET PO SCH (08:04)
[2017-02-18] MEDS: Gabapentin 300 MG CAPSULE PO SCH ×3 (08:04→21:04)
[2017-02-18] MEDS: Ranolazine 500 MG TAB.ER.12H PO SCH ×2 (08:04→21:01)
[2017-02-18] MEDS: methylPREDNISolone 125 MG/2 ML VIAL IVP SCH (08:06)
--- NOTE | 2017-02-18 08:36 | Internal Med Progress Note ---
<Mariama Lang - Last Filed: 02/18/17 09:44> Date of Encounter: 02/18/17 Time of Encounter: 08:36 - Assessment and plan (1) Acute exacerbation of chronic obstructive pulmonary disease (COPD) Current Visit: Yes Status: Acute Assessment and plan: Likely secondary to viral illness with acute decompensation of COPD. Increased oxygen need, patient only wears 2L NC at night. Is requiring 4L NC around the clock. Will attempt to wean as tolerated to keep SpO2 88% Chest xray with demonstration of trace bilateral pleural effusions Continue duonebs scheduled Q4 hours Albuterol nebulizer PRN Q2 hours Has received 2 days of IV steroids. Will transition to 60 mg oral steroids tomorrow for an additional 3 day course. Will hold oral inhaled steroid (symbicort) for now, will plan to resume prior to discharge Continue levaquin 750 mg daily (day 3 of therapy) (2) Acute and chronic respiratory failure with hypoxia Current Visit: Yes Status: Acute Assessment and plan: Secondary to above Treatment as per previously mentioned (3) Chest pain Current Visit: No Status: Acute Assessment and plan: May be secondary to increased respiratory work vs ACS. Patient has significant history with previous DC, CHF, PVD, CAD, HTN and HLD Will continue home rivaxiban Troponin negative x 3 BNP with no elevation Will continue to monitor, may consider echo if pain returns Qualifiers: Chest pain type: other chest pain Qualified Code(s): R07.89 - Other chest pain; R07.8 - Other chest pain (4) Abdominal pain Current Visit: Yes Status: Acute Assessment and plan: Patient is having pain in lower left abdomen CT abdomen/pelvis with mild mural thickening in right colon GI consulted, appreciate input and expertise. Plan for colonoscopy. Patient to complete prep Monday, NPO at midnight and colonoscopy Monday. Will continue to monitor and follow. Patient tolerating oral intake. Qualifiers: Abdominal location: left lower quadrant Qualified Code(s): R10.32 - Left lower quadrant pain (5) HTN (hypertension) Current Visit: No Status: Chronic Assessment and plan: Chronic. Will reorder home medications. Blood pressure stable. Qualifiers: Hypertension type: essential hypertension Qualified Code(s): I10 - Essential (primary) hypertension (6) Peripheral vascular disease Current Visit: No Status: Chronic Assessment and plan: Stable. Continue home medications. (7) HLD (hyperlipidemia) Current Visit: No Status: Chronic Assessment and plan: Stable. Continue home medications. Qualifiers: Hyperlipidemia type: mixed hyperlipidemia Qualified Code(s): E78.2 - Mixed hyperlipidemia (8) Anxiety Current Visit: No Status: Acute Assessment and plan: Stable. Continue home medication. Patient edwards snot have home trillentx, is not on formulary at hospital. Will place order for patient to take her own medication, will have someone bring from home. (9) Atrial fibrillation with RVR Current Visit: No Status: Acute (10) Anemia Current Visit: Yes Status: Acute Assessment and plan: Hemoglobin 9.2 -> 8.4 -> 8.2 No clear evidence of blood loss. Patient has reported unintentional weight loss. GI consulted, plan for colonoscopy Monday. Continue to monitor CBC. Qualifiers: Anemia type: unspecified type Qualified Code(s): D64.9 - Anemia, unspecified - Subjective Interval history: Patient seen and examined this morning. Patient admitted yesterday for increasing shortness of breath dysnpnea. She is being treated for a COPD exacerbation with steroids, duonebs and IV antibiotics. This morning she feels that her breathing has significantly improved from admission. She does not feel that her chest is as tight. She feels that the duonebs are helping her significantly. She currently denies any abdominal pain but states she is just waking up. She has no other acute concerns or complaints at this time. - Constitutional Vitals: Temp Pulse Resp BP Pulse Ox 97.7 F 80 20 127/70 94 L 02/18/17 07:37 02/18/17 07:37 02/18/17 07:37 02/18/17 07:37 02/18/17 07:37 General appearance: Present: A&O X 3, no acute distress, answers questions appropriately - Head Head exam: Present: atraumatic, normocephalic - Eye Eye exam: Present: normal appearance. Absent: conjunctival injection - ENT ENT exam: Present: mucous membranes moist, normal oropharynx Additional comments: nasal canula in place - Neck Neck exam general surgery: Present: supple, trachea midline - Respiratory Respiratory exam: Present: CTAB. Absent: accessory muscle use, rales, rhonchi, stridor, wheezes - Cardiovascular Cardiovascular exam: Present: RRR, +S1, +S2. Absent: clicks, diastolic murmur, gallop, rubs, systolic murmur - GI/Abdominal GI/Abdominal exam: Present: normal bowel sounds, soft, tenderness (left lower quadrant). Absent: distended, guarding, rebound - Extremities Exam Extremities exam: Present: normal capillary refill. Absent: pedal edema Internal Medicine: Result - Labs CBC & Chem 7: 02/17/17 06:05 02/17/17 06:05 Labs: Cardiac Enzymes 02/17/17 Range/Units 11:33 Troponin I 0.01 (0-0.03) ng/mL - ABG Interpretation ABG results: ABG ABG pH 7.46 pH Units (7.32-7.45) H 02/16/17 23:20 ABG pCO2 38 mmHg (35-45) 02/16/17 23:20 ABG pO2 69 mmHg (85-104) L 02/16/17 23:20 ABG O2 Saturation 95 % (95-98) 02/16/17 23:20 PT/INR, D-dimer PT 44.7 Seconds (9.4-12.1) H* 02/16/17 14:23 - VTE Reasons for not Prescribing Prophylaxis: Not indicated-Anticoagulated or INR therapeutic Consult Discharge Plan - Plan Referrals: Adonay Herrera DO [Primary Care Provider] - <Nirav Hernandez - Last Filed: 02/18/17 16:57> - Assessment and plan (1) Acute and chronic respiratory failure with hypoxia Current Visit: Yes Status: Acute (2) Acute exacerbation of chronic obstructive pulmonary disease (COPD) Current Visit: Yes Status: Acute (3) HLD (hyperlipidemia) Current Visit: No Status: Chronic Qualifiers: Hyperlipidemia type: mixed hyperlipidemia Qualified Code(s): E78.2 - Mixed hyperlipidemia (4) HTN (hypertension) Current Visit: No Status: Chronic Qualifiers: Hypertension type: essential hypertension Qualified Code(s): I10 - Essential (primary) hypertension (5) Abdominal pain Current Visit: Yes Status: Acute Qualifiers: Abdominal location: left lower quadrant Qualified Code(s): R10.32 - Left lower quadrant pain (6) Peripheral vascular disease Current Visit: No Status: Chronic (7) Tobacco abuse Current Visit: No Status: Chronic - Constitutional Vitals: Temp Pulse Resp BP Pulse Ox 97.8 F 75 18 117/69 95 02/18/17 16:31 02/18/17 16:31 02/18/17 16:31 02/18/17 16:31 02/18/17 16:31 Internal Medicine: Result - Labs CBC & Chem 7: 02/17/17 06:05 02/17/17 06:05 - ABG Interpretation ABG results: ABG ABG pH 7.46 pH Units (7.32-7.45) H 02/16/17 23:20 ABG pCO2 38 mmHg (35-45) 02/16/17 23:20 ABG pO2 69 mmHg (85-104) L 02/16/17 23:20 ABG O2 Saturation 95 % (95-98) 02/16/17 23:20 PT/INR, D-dimer PT 44.7 Seconds (9.4-12.1) H* 02/16/17 14:23 - Attending Attestation I examined this patient and my medical decision-making was reviewed with the Resident Physician on 02/18/17. I agree with the documented findings, disposition and treatment plan as described except to the extent set forth below. Ms. Costa is currently admitted for acute exac COPD. She is moderate to high risk due to potential for worsening respiratory status. Ms. Costa is resting comfortably at this time. Denies pain. Breathing a little better. No fever or chills. No GI symptoms. Exam alert. Comfortable Heart reg Wheeze still present I/P 1. Acute exac COPD 2. Hypoxic resp failure Further diagnoses and plan as above.
[2017-02-18] MEDS ORDERED: predniSONE 20 MG TABLET PO SCH (09:00)
[2017-02-18] MEDS: clonazePAM 0.5 MG TABLET PO PRN ×2 (15:02→21:01)
[2017-02-18] MEDS: Levofloxacin 750 MG/150 ML 750 MG/150 ML BAG IVPB SCH (17:15)
[2017-02-19] MEDS: Ipratropium/Albuterol Neb 3 ML IH SCH ×6 (03:50→23:54)
[2017-02-19] MEDS: *HR* OxyCODONE/APAP 5/325 TABLET PO PRN ×3 (06:08→21:47)
[2017-02-19] MEDS: clonazePAM 0.5 MG TABLET PO PRN (06:08)
[2017-02-19] MEDS: Insulin LISPRO 300 UNITS/3 ML VIAL SQ SCH ×4 (08:20→21:40)
[2017-02-19] MEDS: Lactobacillus 1 EACH CAP.SPRINK PO SCH ×2 (08:20→21:46)
[2017-02-19] MEDS: predniSONE 20 MG TABLET PO SCH (08:21)
[2017-02-19] MEDS: Ranolazine 500 MG TAB.ER.12H PO SCH ×2 (08:22→21:46)
[2017-02-19] MEDS: Gabapentin 300 MG CAPSULE PO SCH ×3 (08:22→21:46)
[2017-02-19] MEDS: Furosemide 20 MG TABLET PO SCH (08:22)
[2017-02-19] MEDS: Aspirin Enteric Coated 81 MG Tablet PO SCH (08:23)
[2017-02-19] MEDS: *HR* Rivaroxaban 10 MG TABLET PO SCH (08:28)
--- NOTE | 2017-02-19 08:56 | Internal Med Progress Note ---
<Mariama Lang - Last Filed: 02/19/17 08:53> Date of Encounter: 02/19/17 Time of Encounter: 08:54 - Assessment and plan (1) Acute exacerbation of chronic obstructive pulmonary disease (COPD) Current Visit: Yes Status: Acute Assessment and plan: Likely secondary to viral illness with acute decompensation of COPD. Increased oxygen need, patient only wears 2L NC at night. Will attempt to wean as tolerated to keep SpO2 88% during the day Chest xray with demonstration of trace bilateral pleural effusions Continue duonebs scheduled Q4 hours Albuterol nebulizer PRN Q2 hours Received 2 days of IV steroids, starting 60 mg prednisone today (day 3 of 5) Will hold oral inhaled steroid (symbicort) for now, plan to resume on discharge Continue levaquin 750 mg daily (day 4 of 5) Will recheck CBC and BMP tomorrow morning prior to procedure (2) Acute and chronic respiratory failure with hypoxia Current Visit: Yes Status: Acute Assessment and plan: Secondary to above Treatment as per previously mentioned (3) Chest pain Current Visit: No Status: Acute Assessment and plan: Improving Likely secondary to pleural effusions and bronchitis, less likely to be ACS Patient has significant history with previous MS, CHF, PVD, CAD, HTN and HLD Will continue home rivaxiban, will hold today in advance of colonoscopy tomorrow Troponin negative x 3 BNP with no elevation If pain returns would consider echo Qualifiers: Chest pain type: other chest pain Qualified Code(s): R07.89 - Other chest pain; R07.8 - Other chest pain (4) Abdominal pain Current Visit: Yes Status: Acute Assessment and plan: Patient is having pain in lower left abdomen CT abdomen/pelvis with mild mural thickening in right colon GI consulted, appreciate input and expertise. Plan for colonoscopy. Patient currently undergoing prep for colonoscopy. Clear liquid diet today. Will hold xarelto pre-procedure. Will continue to monitor and follow. Patient tolerating oral intake. Recheck PT/INR/APTT tomorrow morning prior to procedure Qualifiers: Abdominal location: left lower quadrant Qualified Code(s): R10.32 - Left lower quadrant pain (5) HTN (hypertension) Current Visit: No Status: Chronic Assessment and plan: Chronic. Will reorder home medications. Blood pressure stable. Qualifiers: Hypertension type: essential hypertension Qualified Code(s): I10 - Essential (primary) hypertension (6) Peripheral vascular disease Current Visit: No Status: Chronic Assessment and plan: Stable. Continue home medications. (7) HLD (hyperlipidemia) Current Visit: No Status: Chronic Assessment and plan: Stable. Continue home medications. Qualifiers: Hyperlipidemia type: mixed hyperlipidemia Qualified Code(s): E78.2 - Mixed hyperlipidemia (8) Anxiety Current Visit: No Status: Acute Assessment and plan: Stable. Continue home medication. Patient has trillinex from home as is not on pharmacy formulary, is okay to take medication from home. (9) Atrial fibrillation with RVR Current Visit: No Status: Acute Assessment and plan: Currently rate controlled. Continue home medications. (10) Anemia Current Visit: Yes Status: Acute Assessment and plan: Hemoglobin 9.2 -> 8.4 -> 8.2 No clear evidence of blood loss. Patient has reported unintentional weight loss. GI consulted, plan for colonoscopy Monday. Continue to monitor CBC. Qualifiers: Anemia type: unspecified type Qualified Code(s): D64.9 - Anemia, unspecified - Subjective Interval history: Patient seen and examined this morning. Patient admitted for increasing shortness of breath dysnpnea. She is being treated for a COPD exacerbation with steroids, duonebs and IV antibiotics. She was found to have right mural colon wall thickening on CT abdomen, GI is planning on a colonoscopy. She states this morning that she feels like her breathing is back to normal. She feels as if she does not have any more dyspnea or chest tightness. She has begun her prep for her colonoscopy tomorrow and is feeling increasing cramping in her lower abdomen. She has no other acute concerns or complaints at this time. - Constitutional Vitals: Temp Pulse Resp BP Pulse Ox 97.4 F L 64 18 115/72 92 L 02/19/17 07:45 02/19/17 07:45 02/19/17 07:45 02/19/17 07:45 02/19/17 07:45 General appearance: Present: A&O X 3, no acute distress, answers questions appropriately - Head Head exam: Present: atraumatic, normocephalic - Eye Eye exam: Present: normal appearance. Absent: conjunctival injection - ENT ENT exam: Present: mucous membranes moist, normal external ear exam, normal oropharynx Additional comments: nasal canula in place - Neck Neck exam general surgery: Present: supple, trachea midline - Respiratory Respiratory exam: Present: CTAB. Absent: rales, rhonchi, stridor, wheezes - Cardiovascular Cardiovascular exam: Present: RRR, +S1, +S2. Absent: clicks, diastolic murmur, gallop, rubs, systolic murmur - GI/Abdominal GI/Abdominal exam: Present: hyperactive bowel sounds, soft, tenderness (mildly tender diffusely to palpation ). Absent: distended, guarding, rebound, rigid - Extremities Exam Extremities exam: Present: normal capillary refill. Absent: pedal edema Internal Medicine: Result - Labs CBC & Chem 7: 02/17/17 06:05 02/17/17 06:05 - ABG Interpretation ABG results: ABG ABG pH 7.46 pH Units (7.32-7.45) H 02/16/17 23:20 ABG pCO2 38 mmHg (35-45) 02/16/17 23:20 ABG pO2 69 mmHg (85-104) L 02/16/17 23:20 ABG O2 Saturation 95 % (95-98) 02/16/17 23:20 PT/INR, D-dimer PT 44.7 Seconds (9.4-12.1) H* 02/16/17 14:23 - VTE Reasons for not Prescribing Prophylaxis: Not indicated-Anticoagulated or INR therapeutic Consult Discharge Plan - Plan Referrals: Adonay Herrera DO [Primary Care Provider] - <Nirav Hernandez - Last Filed: 02/19/17 16:20> - Assessment and plan (1) Acute and chronic respiratory failure with hypoxia Current Visit: Yes Status: Acute (2) Acute exacerbation of chronic obstructive pulmonary disease (COPD) Current Visit: Yes Status: Acute (3) HLD (hyperlipidemia) Current Visit: No Status: Chronic Qualifiers: Hyperlipidemia type: mixed hyperlipidemia Qualified Code(s): E78.2 - Mixed hyperlipidemia (4) HTN (hypertension) Current Visit: No Status: Chronic Qualifiers: Hypertension type: essential hypertension Qualified Code(s): I10 - Essential (primary) hypertension (5) Abdominal pain Current Visit: Yes Status: Acute Qualifiers: Abdominal location: left lower quadrant Qualified Code(s): R10.32 - Left lower quadrant pain (6) Peripheral vascular disease Current Visit: No Status: Chronic (7) Tobacco abuse Current Visit: No Status: Chronic - Constitutional Vitals: Temp Pulse Resp BP Pulse Ox 97.4 F L 64 18 115/72 99 02/19/17 07:45 02/19/17 07:45 02/19/17 10:53 02/19/17 07:45 02/19/17 10:53 Internal Medicine: Result - Labs CBC & Chem 7: 02/17/17 06:05 02/17/17 06:05 - ABG Interpretation ABG results: ABG ABG pH 7.46 pH Units (7.32-7.45) H 02/16/17 23:20 ABG pCO2 38 mmHg (35-45) 02/16/17 23:20 ABG pO2 69 mmHg (85-104) L 02/16/17 23:20 ABG O2 Saturation 95 % (95-98) 02/16/17 23:20 PT/INR, D-dimer PT 44.7 Seconds (9.4-12.1) H* 02/16/17 14:23 - Attending Attestation I examined this patient and my medical decision-making was reviewed with the Resident Physician on 02/19/17. I agree with the documented findings, disposition and treatment plan as described except to the extent set forth below. Ms. Costa is currently admitted for acute exac COPD and hypoxia. She is moderate to high risk due to potential for worsenig respiratory symptoms. She is to have GI endoscopy tomorrow. Ms. Costa is beginning to breathe better today. Less dyspnea and cough. No fever and chills. Exam Alert. Comfortable Scant wheeze present Heart reg I/P 1. Hypoxia 2. COPD Further diagnoses and plan as above.
[2017-02-19] MEDS ORDERED: SODIUM CHLORIDE/NAHCO3/KCL/PEG 4,000 ML SOLN.RECON PO ONE (17:00)
[2017-02-19] MEDS: Levofloxacin 750 MG/150 ML 750 MG/150 ML BAG IVPB SCH (17:55)
[2017-02-20] MEDS: Ipratropium/Albuterol Neb 3 ML IH SCH ×6 (03:55→23:14)
[2017-02-20 05:42] LABS: Hemoglobin 7.5 g/dL (11.5-15.4)
[2017-02-20 05:44] LABS: Basophils % 0.1 %; Eosinophils % 0.5 %; Hematocrit 27.9 % (35.3-44.9); Immature Granulocytes % 1.2 % (0-4); Lymphocytes # 2.4 K/mcL (0.6-4.6); Lymphocytes % 32.3 %; Mean Corpuscular HGB Conc 26.9 g/dL (31.6-35.5); Mean Corpuscular Hemoglobin 19.2 pg (28.0-33.3); Mean Corpuscular Volume 71.4 fL (83.0-100.0); Mean Platelet Volume 8.5 fL (9.4-12.4); Monocytes # 0.6 K/mcL (0.0-1.3); Monocytes % 8.2 %; Neutrophils # 4.2 K/mcL (1.6-8.9); Platelet Count 231 K/mcL (140-400); Red Blood Count 3.91 M/mcL (3.82-4.97); Red Cell Distribution Width 20.4 % (11.5-14.5); Segmented Neutrophils % 57.7 %
[2017-02-20 05:51] LABS: INR 1.5; Prothrombin Time 16.8 Seconds (9.4-12.1)
[2017-02-20 05:53] LABS: Activated Partial Thrombo Time 26.2 Seconds (26.0-36.0)
[2017-02-20 05:56] LABS: BUN/Creatinine Ratio 24 (6-26); Blood Urea Nitrogen 14 mg/dL (7-20); Calcium 8.7 mg/dL (8.6-10.8); Carbon Dioxide 30 mEq/L (19-29); Chloride 101 mEq/L (98-109); Glucose 105 mg/dL (70-99); Osmolality,Calculated 287 (280-300); Potassium 4.1 mEq/L (3.5-4.5); Sodium 138 mEq/L (136-145); eGFR For African Americans > 60 (> 60); eGFR For Non-African Americans > 60 (> 60)
[2017-02-20 06:00] LABS: Hypochromasia Present (Not Present); Platelet Estimate Normal (Normal)
[2017-02-20 06:01] LABS: Anisocytosis 1+ (Not Present); Poikilocytosis 1+ (Not Present)
[2017-02-20] MEDS: *HR* Rivaroxaban 10 MG TABLET PO SCH (07:17)
[2017-02-20] MEDS: Insulin LISPRO 300 UNITS/3 ML VIAL SQ SCH ×4 (09:17→21:15)
[2017-02-20] MEDS: clonazePAM 0.5 MG TABLET PO PRN (09:29)
[2017-02-20] MEDS: *HR* OxyCODONE/APAP 5/325 TABLET PO PRN ×3 (09:29→22:08)
[2017-02-20] MEDS: Ranolazine 500 MG TAB.ER.12H PO SCH ×2 (09:30→21:15)
[2017-02-20] MEDS: predniSONE 20 MG TABLET PO SCH (09:30)
[2017-02-20] MEDS: Lactobacillus 1 EACH CAP.SPRINK PO SCH ×2 (09:30→21:14)
[2017-02-20] MEDS: Gabapentin 300 MG CAPSULE PO SCH ×3 (09:30→21:15)
[2017-02-20] MEDS: Aspirin Enteric Coated 81 MG Tablet PO SCH (09:31)
[2017-02-20] MEDS: Furosemide 20 MG TABLET PO SCH (09:31)
[2017-02-20] MEDS ORDERED: *HR* Midazolam HCl 5 MG/5 ML VIAL IVP ONE (16:58)
[2017-02-20] MEDS ORDERED: *HR* FentaNYL (PF) 100 MCG/2 ML VIAL ONE (16:58)
--- NOTE | 2017-02-20 17:12 | Internal Med Progress Note ---
<Mariama Lang - Last Filed: 02/20/17 17:18> Date of Encounter: 02/20/17 Time of Encounter: 08:30 - Assessment and plan (1) Acute exacerbation of chronic obstructive pulmonary disease (COPD) Current Visit: Yes Status: Acute Assessment and plan: Likely secondary to viral illness with acute decompensation of COPD. Increased oxygen need, patient only wears 2L NC at night. Will attempt to wean as tolerated to keep SpO2 88% during the day Chest xray with demonstration of trace bilateral pleural effusions Continue duonebs scheduled Q4 hours Albuterol nebulizer PRN Q2 hours Received 2 days of IV steroids, starting 60 mg prednisone today (day 4 of 5) Will hold oral inhaled steroid (symbicort) for now, plan to resume on discharge Continue levaquin 750 mg daily (day 5 of 5) CBC without leukocytosis (2) Acute and chronic respiratory failure with hypoxia Current Visit: Yes Status: Acute Assessment and plan: Secondary to above Treatment as per previously mentioned (3) Chest pain Current Visit: No Status: Resolved Assessment and plan: Resolved Likely secondary to pleural effusions and bronchitis, less likely to be ACS Patient has significant history with previous MA, CHF, PVD, CAD, HTN and HLD Will continue home rivaxiban, will hold today in advance of colonoscopy tomorrow Troponin negative x 3, BNP with no elevation If pain returns would consider echo Qualifiers: Chest pain type: other chest pain Qualified Code(s): R07.89 - Other chest pain; R07.8 - Other chest pain (4) Abdominal pain Current Visit: Yes Status: Acute Assessment and plan: Patient is having pain in lower left abdomen CT abdomen/pelvis with mild mural thickening in right colon GI consulted, appreciate input and expertise. Plan for colonoscopy. Patient completed prep for colonoscopy, is currently NPO. Will await results from colonoscopy and GI for further recommendation Qualifiers: Abdominal location: left lower quadrant Qualified Code(s): R10.32 - Left lower quadrant pain (5) HTN (hypertension) Current Visit: No Status: Chronic Assessment and plan: Chronic. Continue home medications. Blood pressure stable. Qualifiers: Hypertension type: essential hypertension Qualified Code(s): I10 - Essential (primary) hypertension (6) Peripheral vascular disease Current Visit: No Status: Chronic Assessment and plan: Stable. Continue home medications. (7) HLD (hyperlipidemia) Current Visit: No Status: Chronic Assessment and plan: Stable. Continue home medications. Qualifiers: Hyperlipidemia type: mixed hyperlipidemia Qualified Code(s): E78.2 - Mixed hyperlipidemia (8) Anxiety Current Visit: No Status: Acute Assessment and plan: Stable. Continue home medication. Patient has trillinex from home as is not on pharmacy formulary, is okay to take medication from home. (9) Atrial fibrillation with RVR Current Visit: No Status: Acute Assessment and plan: Currently rate controlled. Continue home medications. (10) Anemia Current Visit: Yes Status: Acute Assessment and plan: Hemoglobin 9.2 -> 8.4 -> 8.2 No clear evidence of blood loss. Patient has reported unintentional weight loss. GI consulted, plan for colonoscopy Monday. CBC stable this morning. Qualifiers: Anemia type: unspecified type Qualified Code(s): D64.9 - Anemia, unspecified - Subjective Interval history: Patient seen and examined this morning. Patient admitted for increasing shortness of breath dysnpnea. She is being treated for a COPD exacerbation with steroids, duonebs and IV antibiotics. She was found to have right mural colon wall thickening on CT abdomen, GI is planning on a colonoscopy. Patient completed bowel prep yesterday and is currently NPO. She states this morning that she feels like her breathing is back to normal without any dyspnea. She has compleetd her colonoscopy prep and is awaiting to go. She has no other acute concerns or complaints at this time. - Constitutional Vitals: Temp Pulse Resp BP Pulse Ox 98.7 F 80 16 123/67 96 02/20/17 15:41 02/20/17 15:41 02/20/17 16:12 02/20/17 15:41 02/20/17 16:12 General appearance: Present: A&O X 3, no acute distress, answers questions appropriately - Head Head exam: Present: atraumatic, normocephalic - Eye Eye exam: Present: normal appearance. Absent: conjunctival injection - ENT ENT exam: Present: mucous membranes moist, normal external ear exam Additional comments: nasal canula in place - Neck Neck exam general surgery: Present: supple, trachea midline - Respiratory Respiratory exam: Present: CTAB, wheezes. Absent: rales, rhonchi, stridor - Cardiovascular Cardiovascular exam: Present: RRR, +S1, +S2. Absent: clicks, diastolic murmur, gallop, rubs, systolic murmur - GI/Abdominal GI/Abdominal exam: Present: hyperactive bowel sounds, soft. Absent: distended, firm, guarding, rebound, tenderness - Extremities Exam Extremities exam: Present: normal capillary refill. Absent: pedal edema Internal Medicine: Result - Labs CBC & Chem 7: 02/20/17 05:29 02/20/17 05:29 Labs: Short CBC 02/20/17 Range/Units 05:29 WBC 7.3 (4.3-11.1) K/mcL Hgb 7.5 L (11.5-15.4) g/dL Hct 27.9 L (35.3-44.9) % Plt Count 231 (140-400) K/mcL Neutrophils # 4.2 (1.6-8.9) K/mcL BMP 02/20/17 05:29 Sodium 138 Potassium 4.1 Chloride 101 Carbon Dioxide 30 H BUN 14 Creatinine 0.59 Glucose 105 H Calcium 8.7 - ABG Interpretation ABG results: ABG ABG pH 7.46 pH Units (7.32-7.45) H 02/16/17 23:20 ABG pCO2 38 mmHg (35-45) 02/16/17 23:20 ABG pO2 69 mmHg (85-104) L 02/16/17 23:20 ABG O2 Saturation 95 % (95-98) 02/16/17 23:20 PT/INR, D-dimer PT 16.8 Seconds (9.4-12.1) H D 02/20/17 05:29 - VTE Reasons for not Prescribing Prophylaxis: Not indicated-Anticoagulated or INR therapeutic Consult Discharge Plan - Plan Referrals: Adonay Herrera DO [Primary Care Provider] - 03/03/17 12:30 pm <Nirav Hernandez - Last Filed: 02/20/17 17:26> - Assessment and plan (1) Acute and chronic respiratory failure with hypoxia Current Visit: Yes Status: Acute (2) Acute exacerbation of chronic obstructive pulmonary disease (COPD) Current Visit: Yes Status: Acute (3) HLD (hyperlipidemia) Current Visit: No Status: Chronic Qualifiers: Hyperlipidemia type: mixed hyperlipidemia Qualified Code(s): E78.2 - Mixed hyperlipidemia (4) HTN (hypertension) Current Visit: No Status: Chronic Qualifiers: Hypertension type: essential hypertension Qualified Code(s): I10 - Essential (primary) hypertension (5) Abdominal pain Current Visit: Yes Status: Acute Qualifiers: Abdominal location: left lower quadrant Qualified Code(s): R10.32 - Left lower quadrant pain (6) Peripheral vascular disease Current Visit: No Status: Chronic (7) Tobacco abuse Current Visit: No Status: Chronic (8) Anemia Current Visit: Yes Status: Suspected Qualifiers: Anemia type: other cause Other causes of anemia: acute posthemorrhagic Qualified Code(s): D62 - Acute posthemorrhagic anemia - Constitutional Vitals: Temp Pulse Resp BP Pulse Ox 98.7 F 61 18 142/79 91 L 02/20/17 15:41 02/20/17 17:09 02/20/17 17:09 02/20/17 17:09 02/20/17 17:09 Internal Medicine: Result - Labs CBC & Chem 7: 02/20/17 05:29 02/20/17 05:29 Labs: Short CBC 02/20/17 Range/Units 05:29 WBC 7.3 (4.3-11.1) K/mcL Hgb 7.5 L (11.5-15.4) g/dL Hct 27.9 L (35.3-44.9) % Plt Count 231 (140-400) K/mcL Neutrophils # 4.2 (1.6-8.9) K/mcL BMP 02/20/17 05:29 Sodium 138 Potassium 4.1 Chloride 101 Carbon Dioxide 30 H BUN 14 Creatinine 0.59 Glucose 105 H Calcium 8.7 - ABG Interpretation ABG results: ABG ABG pH 7.46 pH Units (7.32-7.45) H 02/16/17 23:20 ABG pCO2 38 mmHg (35-45) 02/16/17 23:20 ABG pO2 69 mmHg (85-104) L 02/16/17 23:20 ABG O2 Saturation 95 % (95-98) 02/16/17 23:20 PT/INR, D-dimer PT 16.8 Seconds (9.4-12.1) H D 02/20/17 05:29 - Attending Attestation I examined this patient and my medical decision-making was reviewed with the Resident Physician on 02/20/17. I agree with the documented findings, disposition and treatment plan as described except to the extent set forth below. Ms. Costa is currently admitted for acute hypoxia and exac COPD. She is having endoscopy today. She is moderate to high risk due to potential for worsening respiratory status. Ms. Costa overall is breathing better. She is awaiting endoscopy. No new issues last night. Exam Alert. Comfortable Heart reg Lungs diminished I/P 1. Exac COPD 2. GI bleed - endoscopy today Further diagnoses and plan as above.
[2017-02-20] MEDS ORDERED: *HR* FentaNYL (PF) 100 MCG/2 ML VIAL IVP PRN (17:45)
[2017-02-20] MEDS ORDERED: Simethicone 40 MG/0.6 ML MLS IR ONE (17:45)
[2017-02-20] MEDS ORDERED: *HR* Midazolam HCl 5 MG/5 ML VIAL IVP PRN (17:45)
--- NOTE | 2017-02-20 17:45 | Pre-Sedation Evaluation ---
Pre-sedation evaluation - Pre-sedation checklist Date of procedure: 02/20/17 Procedure: Colonoscopy Recent Vitals: Last Vital Signs Temp 98.7 F 02/20/17 15:41 Pulse 62 02/20/17 17:43 Resp 18 02/20/17 17:43 BP 138/86 02/20/17 17:43 Pulse Ox 98 02/20/17 17:43 H&P (including ROS) documented in medical record: Yes Previous reaction to sedatives/anesthetics: No Dietary Status: NPO after Midnight Dentition: No loose teeth or bridges ASA Classification *see protocol: CLASS III-Severe systemic disease Plan of Care: Pt appropriate candidate for procedure/moderate/conscious sedation , Risks/benefits of procedure/sedation discussed w/ patient/family
[2017-02-20] MEDS: Levofloxacin 750 MG/150 ML 750 MG/150 ML BAG IVPB SCH (19:10)
[2017-02-20] MEDS ORDERED: *HR* OxyCODONE/APAP 5/325 TABLET PO PRN (21:14)
[2017-02-21] MEDS: Ipratropium/Albuterol Neb 3 ML IH SCH ×5 (04:12→20:39)
[2017-02-21] MEDS: Aspirin Enteric Coated 81 MG Tablet PO SCH (08:18)
[2017-02-21] MEDS: Lactobacillus 1 EACH CAP.SPRINK PO SCH (08:18)
[2017-02-21] MEDS: Insulin LISPRO 300 UNITS/3 ML VIAL SQ SCH ×3 (08:18→16:49)
[2017-02-21] MEDS: Furosemide 20 MG TABLET PO SCH (08:19)
[2017-02-21] MEDS: Gabapentin 300 MG CAPSULE PO SCH ×2 (08:19→16:48)
[2017-02-21] MEDS: Ranolazine 500 MG TAB.ER.12H PO SCH (08:19)
[2017-02-21] MEDS: predniSONE 20 MG TABLET PO SCH (08:19)
[2017-02-21] MEDS: *HR* Rivaroxaban 10 MG TABLET PO SCH (08:21)
[2017-02-21] MEDS: clonazePAM 0.5 MG TABLET PO PRN (08:26)
[2017-02-21] MEDS: *HR* OxyCODONE/APAP 5/325 TABLET PO PRN ×2 (08:27→14:29)
[2017-02-21] MEDS ORDERED: *HR* OxyCODONE/APAP 5/325 TABLET PO PRN (10:08)
[2017-02-21 11:26] LABS: Eosinophils % 0.5 %
[2017-02-21 11:27] LABS: Basophils % 0.1 %; Eosinophils # 0.1 K/mcL (0.0-0.6); Hematocrit 31.1 % (35.3-44.9); Hemoglobin 8.3 g/dL (11.5-15.4); Immature Granulocytes % 1.4 % (0-4); Lymphocytes # 0.9 K/mcL (0.6-4.6); Lymphocytes % 8.9 %; Mean Corpuscular HGB Conc 26.7 g/dL (31.6-35.5); Mean Corpuscular Hemoglobin 19.5 pg (28.0-33.3); Mean Platelet Volume 9.4 fL (9.4-12.4); Monocytes # 0.5 K/mcL (0.0-1.3); Monocytes % 4.8 %; Neutrophils # 8.9 K/mcL (1.6-8.9); Platelet Count 274 K/mcL (140-400); Red Blood Count 4.26 M/mcL (3.82-4.97); Red Cell Distribution Width 20.4 % (11.5-14.5); Segmented Neutrophils % 84.3 %
[2017-02-21 11:37] LABS: BUN/Creatinine Ratio 17 (6-26); Blood Urea Nitrogen 12 mg/dL (7-20); Calcium 8.7 mg/dL (8.6-10.8); Carbon Dioxide 28 mEq/L (19-29); Chloride 102 mEq/L (98-109); Glucose 241 mg/dL (70-99); Osmolality,Calculated 292 (280-300); Potassium 4.4 mEq/L (3.5-4.5); Sodium 137 mEq/L (136-145); eGFR For African Americans > 60 (> 60); eGFR For Non-African Americans > 60 (> 60)
[2017-02-21 11:45] LABS: Hypochromasia Present (Not Present); Platelet Estimate Normal (Normal)
[2017-02-21 11:46] LABS: Anisocytosis 1+ (Not Present); Microcytosis Present (Not Present); Poikilocytosis 1+ (Not Present)
[2017-02-21 15:57] VITALS: BP 117/62
--- NOTE | 2017-02-21 18:24 | Discharge Summary ---
Date of Encounter: 02/21/17 Time of Encounter: 18:14 - Discharge Diagnosis (1) HTN (hypertension) Priority: Secondary Status: Chronic Qualifiers: Hypertension type: essential hypertension Qualified Code(s): I10 - Essential (primary) hypertension (2) Acute exacerbation of chronic obstructive pulmonary disease (COPD) Priority: Primary Status: Acute (3) Anemia Priority: Secondary Status: Suspected Qualifiers: Anemia type: other cause Other causes of anemia: acute posthemorrhagic Qualified Code(s): D62 - Acute posthemorrhagic anemia - Discharge Medications Home Medications: Albuterol Sulfate [Albuterol Inhaler] 2 puff IH Q4H PRN 10/22/16 [History] Aspirin [Lo-Dose Aspirin EC] 81 mg PO DAILY 10/22/16 [History] Furosemide [Lasix] 20 mg PO DAILY 10/22/16 [History] Gabapentin [Gabapentin] 600 mg PO TID 10/22/16 [History] Isosorbide DInitrate [Isosorbide Dinitrate] 30 mg PO BID 10/22/16 [History] Metformin [Glucophage] 1,000 mg PO BID 10/22/16 [History] Omeprazole [PriLOSEC] 20 mg PO DAILY 10/22/16 [History] Oxycodone HCl/Acetaminophen [Percocet 5-325 mg Tablet] 1 tab PO Q6H PRN [History] Ranolazine [Ranexa] 500 mg PO BID 30 Days 10/22/16 [Rx] Rivaroxaban [Xarelto] 20 mg PO DAILY 10/22/16 [History] Umeclidinium Brm/Vilanterol Tr [Anoro Ellipta 62.5-25 Mcg INH] 1 each IH DAILY 10/22/16 [History] Atorvastatin Calcium [Lipitor] 80 mg PO HS 02/16/17 [History] ClonazePAM [Klonopin] 0.5 - 1 mg PO BID PRN 02/16/17 [History] Metoprolol [Lopressor] 50 mg PO BID 02/16/17 [History] Vortioxetine Hydrobromide [Trintellix] 10 mg PO DAILY 02/16/17 [History] Allergies/Adverse Reactions: Allergies No Known Allergies Allergy (Verified 02/16/17 13:59) Date of admission: 02/17/17 02:12 Primary care physician: Adonay Herrera DO Consults: 02/17/17 06:00 Consult to Gastroenterology [CONS] Routine Consulting Provider: Nikki Luu Reason for Consult: Mural thickening of the right colon Call Completed: No Discharging clinician: Felton Mendez Anticipated date of discharge: 02/21/17 - Patient Status Disposition: Home, Self-Care Condition: Fair - Discharge Instructions Follow Up With: Adonay Herrera DO [Primary Care Provider] - 03/03/17 12:30 pm - Diet and Activity Activity: resume usual activities as tolerated Diet: advance to your usual diet Interval History: Ms. Costa is a 66 year old female c/o SOB. PMH CHF,DVT,CAD,GA,PVD, COPD, DM, HLD with c/o SOB. Pt states that this started approximately 2 weeks ago and is associated with green productive cough which is constant throughout the day, usually worse at night. Continues to smoke, cut back from 3ppd x50yrs to 1/ 2ppd this year. she was admitted for acute exacerbation of COPD and was treated with IV steroids, DuoNeb's with which she improved clinically. She also reports lower abdominal pain and intermittent nausea. No aggrevating factors noted. The pain occurs randomly and lasts from a few minutes to all day , and then resolves. CT A/P with small amount of abdominal and pelvic ascites and mural thickening in right colon. She denies melena or hematochezia.Denies hemoptysis, V/C/D, no blood in stools. GI was consulted and she underwent colonocopy, had multiple polyps that was biospsied and was removed she is noted to have microcytic anemia with hb ~8.5. she denies any mohsen or blood in stool. her iron is noted to be low, she says she was taking iron before and has run out of it. Discussed with GI, also recommended to discharge her on iron pills for now, no need for EGD at this time given no symptoms. She will follow up with GI as outpatient for repeat colonoscopy in 6 months, if needed she will undergo EGD at that time. She is being discharged today in stable condition. Hospital course: Ms. Costa is a 66 year old female Time spent discussing smoking cessation with patient: more than 10 minutes - Time Spent with Patient Total time spent providing and/or coordinating discharge services: Greater than 30 minutes - Constitutional Vitals: Temp Pulse Resp BP Pulse Ox 98.6 F 62 16 117/62 99 02/21/17 15:00 02/21/17 15:00 02/21/17 15:00 02/21/17 15:00 02/21/17 15:00 General appearance: Present: A&O X 3, no acute distress, answers questions appropriately Exam: - Head Head exam: Present: atraumatic, normocephalic - Eye Eye exam: Present: PERRL, conjuntiva pink, sclera anicteric Pupils: Present: PERRL - ENT ENT exam: Present: mucous membranes dry - Neck Neck exam general surgery: Present: supple, trachea midline. Absent: lymphadenopathy - Respiratory Respiratory exam: Present: no wheezing or creptns - Cardiovascular Cardiovascular exam: Present: RRR, +S1, +S2. Absent: diastolic murmur, gallop, rubs, systolic murmur - GI/Abdominal GI/Abdominal exam: Present: normal bowel sounds, soft, tenderness (LLQ RLQ), no peritoneal signs - Extremities Exam Extremities exam: Present: warm. Absent: calf tenderness, cyanotic, pedal edema , tenderness - Neurological Exam Neurological exam: Present: CN II-XII intact, oriented X3, no focal deficits. Absent: facial droop - Skin Skin exam: Present: dry, intact, pallor. Absent: cyanosis, diaphoretic - VTE Reasons for not Prescribing Prophylaxis: Not indicated-Anticoagulated or INR therapeutic
== END 2017-02-21 19:14 | disposition home or self-care (01) | DRG 190 ==
LOC: 2ANU 13:50 → EMEROO 13:50 → 2ANU 20:00 → SUATTDRO 02-17 02:12
PROVIDERS: ADMIT Nurse Practitioner Family; ATTEND Internal Medicine Endocrinology, Diabetes & Metabolism

== ENCOUNTER 2017-05-11 06:41 | Inpatient (IN) ==
[2017-05-11] MEDS ORDERED: CeFAZolin Pre 2,000 MG/100 ML 2,000 MG/100 ML BAG IVPB ONE (07:20)
[2017-05-11] MEDS ORDERED: Vancomycin 1,000 MG in D5% in Water 250 ML IVPB ONE ×2 (07:20→19:48)
[2017-05-11] MEDS ORDERED: Albuterol 2.5 MG/3 ML NEBULIZER IH ONE (07:20)
[2017-05-11] MEDS ORDERED: *HR* Succinylcholine 200 MG/10 ML VIAL IVP ONE (07:22)
[2017-05-11] MEDS ORDERED: *HR* Propofol 200 MG/20 ML VIAL IVP ONE ×2 (07:22→09:03)
[2017-05-11] MEDS ORDERED: Lidocaine -MPF 2% 2 ML VIAL ONE (07:22)
[2017-05-11] MEDS ORDERED: Dexamethasone 4 MG/ML VIAL ONE (07:22)
[2017-05-11] MEDS ORDERED: *HR* FentaNYL (PF) 100 MCG/2 ML VIAL ONE ×2 (07:22→08:18)
[2017-05-11] MEDS ORDERED: *HR* Midazolam HCl 2 MG/2 ML VIAL ONE (07:22)
[2017-05-11] MEDS ORDERED: *HR* Phenylephrine 10 MG/ML VIAL ONE (07:22)
[2017-05-11] MEDS ORDERED: Ondansetron 4 MG/2 ML VIAL ONE (07:22)
[2017-05-11] MEDS ORDERED: Heparin 1,000 UNITS/500 mL NS 500 ML ONE ×2 (07:30→08:13)
[2017-05-11] MEDS: Ringers Solution, Lactated 1,000 ML IVC SCH ×2 (07:42→12:27)
--- NOTE | 2017-05-11 07:48 | Anesthesia Evaluation PreOp ---
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: Other (chronic back pain, anxiety, depression) Other Medical History: Renal (L renal artery stent), Diabetes Type II ( borderline) Alcohol Use: none Drug use: none Medications and Allergies Albuterol Sulfate [Albuterol Inhaler] 2 puff IH Q4H PRN 10/22/16 [History] Aspirin [Lo-Dose Aspirin EC] 81 mg PO DAILY 10/22/16 [History] Furosemide [Lasix] 20 mg PO DAILY 10/22/16 [History] Gabapentin [Gabapentin] 600 mg PO TID 10/22/16 [History] Isosorbide DInitrate [Isosorbide Dinitrate] 30 mg PO BID 10/22/16 [History] Omeprazole [PriLOSEC] 20 mg PO DAILY 10/22/16 [History] Oxycodone HCl/Acetaminophen [Percocet 5-325 mg Tablet] 1 tab PO Q6H PRN [History] Ranolazine [Ranexa] 500 mg PO BID 30 Days 10/22/16 [Rx] Rivaroxaban [Xarelto] 20 mg PO DAILY 10/22/16 [History] Umeclidinium Brm/Vilanterol Tr [Anoro Ellipta 62.5-25 Mcg INH] 1 each IH DAILY 10/22/16 [History] metFORMIN [Glucophage] 1,000 mg PO BID 10/22/16 [History] Atorvastatin Calcium [Lipitor] 80 mg PO HS 02/16/17 [History] Metoprolol [Lopressor] 50 mg PO BID 02/16/17 [History] Vortioxetine Hydrobromide [Trintellix] 10 mg PO DAILY 02/16/17 [History] clonazePAM [Klonopin] 0.5 - 1 mg PO BID PRN 02/16/17 [History] Ferrous Sulfate 325 mg PO BIDWM #60 tablet 02/21/17 [Rx] predniSONE [PredniSONE] See Taper PO DAILY #36 tablet 02/21/17 [Rx] Allergies No Known Allergies Allergy (Verified 02/16/17 13:59) - Meds/Allergy Pre-op Review Medications Reviewed: Yes Allergies Reviewed: Yes Beta Blockers on Current Med List: Yes If Beta Blockers taken, Date/Time (Last Dose taken): 05-11-17 metoprolol 5:30 Anesthesia Results - Labs Laboratory Tests 05/02/17 05/02/17 13:59 13:59 WBC 8.1 Hgb 13.0 Hct 42.4 Plt Count 224 Sodium 142 Potassium 3.5 Chloride 105 Carbon Dioxide 27 BUN 10 Creatinine 0.63 Est GFR ( Amer) > 60 Est GFR (Non-Af Amer) > 60 BUN/Creatinine Ratio 16 Glucose 82 - Imaging EKG: report reviewed, image reviewed (A fib with RVR ; stress test ECG showed NSR ) Additional studies: TTE: LVEF 60% mild LV diastolic dysfunction no sign valvular dysfunction Anesthesia Exam Last Vital Signs Temp 97.6 F 05/11/17 07:03 Pulse 60 05/11/17 07:03 Resp 16 05/11/17 07:47 BP 119/69 05/11/17 07:47 Pulse Ox 94 05/11/17 07:47 Weight: 71 kg NPO (# of Hours): >> 8 hrs - HEENT Pupil (Motor): Pupils equal, EOMI Mallampati: I Teeth: Missing, Poor dentition (loose lower and upper teeth) Oral Opening: Greater than 3 - 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
[2017-05-11] MEDS ORDERED: *HR* Labetalol 20 MG/4 ML SYRINGE IVP PRN ×2 (07:53→13:25)
[2017-05-11] MEDS ORDERED: *HR* Promethazine 25 MG/ML VIAL IVP PRN (07:53)
--- NOTE | 2017-05-11 08:08 | History & Physical Report ---
Date of Encounter: 05/11/17 Time of Encounter: 07:55 24 Hour HP Update - Instructions Instructions: If the History and Physical is less than 30 days old and was completed prior to A.M. admission and or procedure and has NOT been updated on calendar day of procedure please complete this update prior to performing procedure. - Update Patient reports changes in Medical Condition: No Changes in examination, assessment, or condition: No Changes in Medication: No Preop tests/diagnostics Reviewed: Yes Surgery Remains Indicated: Yes Consent for Planned Operative Procedure(s) Verified: Yes - Pre-Operative Checklist Preoperative Checklist Indicated: Yes Prophylactic Antibiotic Ordered: Yes (vancomycin due to MRSA risk) Home Medications Include Beta Lor: Yes Beta Lor Taken Today (Day of Surgery): Yes Beta Lor Taken Yesterday (Day Prior to Surgery): Yes Is VTE Prophylaxis Indicated?: Yes
[2017-05-11] MEDS ORDERED: *HR* HYDROmorphone 2 MG/ML SYRINGE ONE (09:09)
[2017-05-11] MEDS ORDERED: EPHEDrine 50 MG/ML VIAL ONE (09:41)
[2017-05-11] MEDS ORDERED: *HR* Heparin 5,000 UNIT/ML VIAL ONE (10:22)
[2017-05-11] MEDS: *HR* HYDROmorphone (PF) 1 MG/ML SYRINGE IVP PRN ×2 (11:57→12:06)
--- NOTE | 2017-05-11 11:59 | Operative Note ---
Date of procedure: 05/11/17 Pre-op diagnosis: Peripheral vascular disease with rest pain Post-op diagnosis: same Procedure: 1. Reoperative femoral to femoral artery bypass with 6mmm PTFE graft. 2. Right deep femoral endarterectomy. 3. Femoral to Femoral bypass graft thrombectomy. Complications: None Anesthesia: ANDREAA Surgeon: Nishant Vu Estimated blood loss (cc): 100 Specimen: graft thrombus and femoral plaque Condition: stable Disposition: PACU Procedure in Detail: Indications: The patient is a 66 year old female with an extensive history of disabling claudication and progressive rest pain. She has a left iliac artery chronic occlusion. She has previously undergone multiple femoral to popliteal artery bypasses as well as a left to right femoral to femoral artery bypass. All bypasses were noted to be occluded on CT scan. The patient presented to clinic with progressive rest pain and revascularization was recommended for symptomatic relief and to reduce her risk of limb loss. Procedure: The patient was identified in the preoperative area. The risks, benefits, and alternatives of the procedure were discussed. All questions were answered. The patient was taken to the operating room and placed in supine position on the operating room table. After the induction of general endotracheal anesthesia, he was cleaned and draped in normal sterile fashion. An oblique incision was made over the right groin through her previous scar sharply. Hemostasis was obtained with electrocautery. Through a process of blunt, sharp, and electrocautery dissection, the right femoral vessels were dissected circumferentially and surrounded with vessel loops. Her prior femoral to popliteal artery bypass grafts were also dissected circumferentially and surrounded with vessel loops. Signifcant scarring made dissection particularly difficult and 3 prior femoral to popliteal artery bypasses were identified. The patient received 5000 units of heparin intravenously. The vessels and graft were occluded. The right limb of the femoral to femoral artery bypass was kinked and retracted. It was determined that this limb would not be sutiable for senior living grafrt patency. The graft was excised from the artery and was resected until the lumen appeared normal in caliber. The three prior anastamoses on the femoral artery were also resected along with the proximal segments. A large plaque was identified in the distal common femoral artery. The plaque extended into the feep femroal artery and was nearly occlusive. Additional thrombus was also noted. A 4 [place] rosi embolectomy catheter was used to perform a deep femoral thrombectomy. Using a dental freer, a deep femoral endarterectomy was performed and the thrombus and plaque were completely excised. Vigorous retrograde flow was then noted from the deep femoral artery. A 5 [place] rosi balloon was used to perform a thrombectomy of the FEM-FEM bypass. Significant thrombus was retrieved. Strong pulstile flow was noted after two passes. Heprainized saline was infused into the graft. The graft was clamped with an atraumatic clamp. A 6mm PTFE graft was cut to fit the arterial defect and was then sutured in place but not tied. The graft was then cut to fit the residual FEM-FEM bypass and sutured in place with a running 5-0 prolene. Prior to completing the anastamosis, the graft was flushed through the right femoral to graft anastamosis and heparin was infused into the lumen. The anastamosis was completed and flow was restored in the left lower extremity. Thrombin and gelfoam were used at the proximal anastamosis. Polyphasic signals were noted distal to the anastamoses. The wounds were irrigated with antibiotic-containing saline. Platelet rich and platelet poor plasma were infused into the wounds. Meticulous hemostasis was obtained throughout the wound with electrocautery. Wounds were reapproximated with layers of 2-0 and 3-0 Vicryl. Skin was reapproximated with 3-0 Monocryl. Sterile dressing was applied. The patient was extubated and taken to recovery room in stable condition.
--- NOTE | 2017-05-11 12:39 | Anesthesia Evaluation Post Op ---
Date of Encounter: 05/11/17 Time of Encounter: 12:38 - Vital Signs Vital Signs: Vital Signs/O2 Sat, Most Current Temp Pulse Resp BP Pulse Ox 97.4 F L 59 15 130/75 93 05/11/17 12:20 05/11/17 12:20 05/11/17 12:20 05/11/17 12:20 05/11/17 12:20 - Lungs Lungs: Clear Ascult./Percussion - Airway Airway: Non-obstructed - Cardiovascular Regular Rate - Mental Status Mental Status: Asleep with brisk response to light stimulation - Pain Pain Scale: 3 Pain Scale used: Numeric (1 - 10) - Nausea Vomiting Nausea Vomiting: Not Present - Hydration Hydration: Ice chips, Box catheter - Discharge PostOp Status: Transfer Patient to floor
[2017-05-11] MEDS ORDERED: Dextrose Gel 15 GM PO PRN ×2 (13:25)
[2017-05-11] MEDS ORDERED: clonazePAM 0.5 MG TABLET PO PRN (13:25)
[2017-05-11] MEDS ORDERED: D5% in Water 1,000 ML IVC PRN (13:25)
[2017-05-11] MEDS ORDERED: *HR* Dextrose 50 % in Water (Syg) 50 ML SYRINGE IVP PRN (13:25)
[2017-05-11] MEDS ORDERED: Naloxone 0.4 MG/ML INJ IVP PRN (13:25)
[2017-05-11] MEDS: Gabapentin 300 MG CAPSULE PO SCH ×2 (13:36→20:57)
[2017-05-11] MEDS: *HR* Metoprolol 5 MG/5 ML VIAL IVP SCH ×2 (13:37→20:59)
[2017-05-11] MEDS: ceFAZolin 2,000 MG in D5% in Water 100 ML IVPB SCH ×2 (14:52→22:40)
[2017-05-11] MEDS: Insulin LISPRO 300 UNITS/3 ML VIAL SQ SCH (16:55)
[2017-05-11] MEDS ORDERED: Acetaminophen 325 MG TABLET PO PRN (17:51)
[2017-05-11] MEDS ORDERED: Ondansetron 4 MG/2 ML VIAL IVP PRN (17:51)
[2017-05-11] MEDS ORDERED: *HR* HYDROcodone/Acet 5/325 mg TABLET PO PRN (17:51)
[2017-05-11] MEDS ORDERED: *HR* Morphine 2 MG/ML SYRINGE IVP PRN (17:51)
--- NOTE | 2017-05-11 17:56 | Event Note ---
Date of Encounter: 05/11/17 Time of Encounter: 17:45 Patient alert and comfortable. No hematoma. No acute issues.
[2017-05-11] MEDS ORDERED: *HR* Heparin 5,000 UNIT/ML VIAL SQ SCH (18:00)
[2017-05-11] MEDS: *HR* OxyCODONE Immed Rel 5 MG TABLET PO PRN (20:57)
[2017-05-11] MEDS: Ranolazine 500 MG TAB.ER.12H PO SCH (20:58)
[2017-05-11] MEDS ORDERED: Insulin LISPRO 300 UNITS/3 ML VIAL SQ SCH (21:00)
[2017-05-12] MEDS ORDERED: Vancomycin 1,000 MG in D5% in Water 250 ML IVPB ONE (05:00)
[2017-05-12 05:11] LABS: Basophils % 0.1 %; Eosinophils # 0.1 K/mcL (0.0-0.6); Eosinophils % 0.9 %; Hematocrit 34.7 % (35.3-44.9); Hemoglobin 10.2 g/dL (11.5-15.4); Immature Granulocytes % 0.9 % (0-4); Immature Platelets 3.1 % (1.1-6.1); Lymphocytes # 1.7 K/mcL (0.6-4.6); Lymphocytes % 22.1 %; Mean Corpuscular HGB Conc 29.4 g/dL (31.6-35.5); Mean Corpuscular Hemoglobin 24.4 pg (28.0-33.3); Mean Platelet Volume 9.8 fL (9.4-12.4); Monocytes # 0.5 K/mcL (0.0-1.3); Neutrophils # 5.2 K/mcL (1.6-8.9); Platelet Count 177 K/mcL (140-400); Red Blood Count 4.18 M/mcL (3.82-4.97); Red Cell Distribution Width 20.1 % (11.5-14.5)
[2017-05-12 05:26] LABS: BUN/Creatinine Ratio 16 (6-26); Blood Urea Nitrogen 10 mg/dL (7-20); Calcium 8.6 mg/dL (8.6-10.8); Carbon Dioxide 28 mEq/L (19-29); Chloride 105 mEq/L (98-109); Glucose 103 mg/dL (70-99); Osmolality,Calculated 283 (280-300); Potassium 3.5 mEq/L (3.5-4.5); Sodium 137 mEq/L (136-145); eGFR For African Americans > 60 (> 60); eGFR For Non-African Americans > 60 (> 60)
[2017-05-12 05:54] LABS: Anisocytosis 1+ (Not Present); Hypochromasia Present (Not Present); Platelet Estimate Normal (Normal)
[2017-05-12] MEDS: *HR* Metoprolol 5 MG/5 ML VIAL IVP SCH ×3 (05:55→05:59)
[2017-05-12 07:24] VITALS: BP 128/65
[2017-05-12] MEDS: Insulin LISPRO 300 UNITS/3 ML VIAL SQ SCH (07:32)
[2017-05-12] MEDS: *HR* OxyCODONE Immed Rel 5 MG TABLET PO PRN (07:54)
[2017-05-12] MEDS: Ranolazine 500 MG TAB.ER.12H PO SCH (07:54)
[2017-05-12] MEDS: Gabapentin 300 MG CAPSULE PO SCH (07:54)
--- NOTE | 2017-05-12 08:03 | Discharge Summary ---
Date of Encounter: 05/12/17 Time of Encounter: 07:45 - Discharge Diagnosis (1) Atherosclerosis of right lower extremity with rest pain Priority: Primary Status: Chronic Comments: The patient is postoperative day #1 after reoperative FEM-FEM bypass, graft thrombectomy and femoral endarterectomy. Her wound is healing without hematoma. Her foot is warm and her compartments are soft. She will be discharged today. Qualifiers: Peripheral atherosclerosis artery type: bypass graft, nonbiological Qualified Code(s): I70.621 - Atherosclerosis of nonbiological bypass graft(s) of the extremities with rest pain, right leg (2) COPD (chronic obstructive pulmonary disease) Priority: Secondary Status: Chronic Qualifiers: COPD type: emphysema Emphysema type: panlobular Qualified Code(s): J43.1 - Panlobular emphysema (3) HTN (hypertension) Priority: Secondary Status: Chronic Qualifiers: Hypertension type: essential hypertension Qualified Code(s): I10 - Essential (primary) hypertension (4) HLD (hyperlipidemia) Priority: Secondary Status: Chronic Comments: The patient was counseled regarding atherosclerotic risk factor reduction. Qualifiers: Hyperlipidemia type: mixed hyperlipidemia Qualified Code(s): E78.2 - Mixed hyperlipidemia (5) Tobacco abuse Priority: Secondary Status: Chronic (6) Chronic disease anemia Priority: Secondary Status: Chronic Comments: The patient has chronic disease anemia with acute expected postoperative blood loss anemia. She is hemdynamically stable without evidence of ongoing blood loss. (7) Chronic atrial fibrillation Priority: Secondary Status: Chronic - Discharge Medications Prescriptions: Oxycodone HCl/Acetaminophen [Percocet 5-325 mg Tablet] 1 tab PO Q6H PRN #20 tablet PRN Reason: POSTOPERATIVE PAIN Home Medications: Albuterol Sulfate [Albuterol Inhaler] 2 puff IH Q4H PRN 10/22/16 [History] Aspirin [Lo-Dose Aspirin EC] 81 mg PO DAILY 10/22/16 [History] Furosemide [Lasix] 20 mg PO DAILY 10/22/16 [History] Gabapentin 600 mg PO TID 10/22/16 [History] Isosorbide DInitrate [Isosorbide Dinitrate] 30 mg PO BID 10/22/16 [History] Omeprazole [PriLOSEC] 20 mg PO DAILY 10/22/16 [History] Ranolazine [Ranexa] 500 mg PO BID 30 Days 10/22/16 [Rx] Rivaroxaban [Xarelto] 20 mg PO DAILY 10/22/16 [History] Umeclidinium Brm/Vilanterol Tr [Anoro Ellipta 62.5-25 Mcg INH] 1 each IH DAILY 10/22/16 [History] Atorvastatin Calcium [Lipitor] 80 mg PO HS 02/16/17 [History] Vortioxetine Hydrobromide [Trintellix] 15 mg PO DAILY 02/16/17 [History] clonazePAM [Klonopin] 0.5 - 1 mg PO TID PRN 02/16/17 [History] Ferrous Sulfate 325 mg PO BIDWM #60 tablet 02/21/17 [Rx] Metformin HCl [Glucophage] 1,000 mg PO BID 05/11/17 [History] Metoprolol [Lopressor] 25 mg PO BID 05/11/17 [History] Oxycodone HCl/Acetaminophen [Percocet 5-325 mg Tablet] 1 tab PO Q6H PRN #20 tablet 05/12/17 [Rx] Allergies/Adverse Reactions: Allergies No Known Allergies Allergy (Verified 05/11/17 08:09) Date of admission: 05/11/17 13:10 Primary care physician: Adonay Herrera DO Procedure(s) Performed: FEM-FEM bypass and femoral endarterectomy. Discharging clinician: Nishant Zhang Anticipated date of discharge: 05/12/17 - Patient Status Disposition: Home, Self-Care Condition: Good Functional capacity at discharge: independent ambulation Overall status at discharge: patient is back to baseline - Discharge Instructions Instructions: Oxycodone/Acetaminophen (By mouth), Peripheral Vascular Disorders (DC) Follow Up With: Nishant Zhang MD [Partnered Physician] - 06/26/17 9:30 am Fred Marina [Non-Partnered Physician] - 05/22/17 8:00 am Additional Instructions: MAY REMOVE BANDAGE AND SHOWER ON 05/13/17. WASH WOUND GENTLY AND PAT TO DRY. APPLY DRY GAUZE TO WOUND DAILY FOR 7 DAYS. NO TUB BATHS OR SWIMMING FOR UNTIL 06/09/17. CALL DR. ZHANG AT [phone] WITH QUESTIONS OR CONCERNS. - Diet and Activity Activity: increase activity as tolerated Diet: advance to your usual diet - Hospital Course Hospital course: Ms. Costa is a 66 year old female wit h multiple medical comorbidities who has a history of peripheral vascular disease. She presented to clinic with rest pain. She underwent a reoperative FEM-FEM bypass and tolerated the procedure well. She was discharged on postoperative day #1 in stable condition without complications. Time spent discussing smoking cessation with patient: 3 to 10 minutes - Time Spent with Patient Total time spent providing and/or coordinating discharge services: Exam Vital Signs, Last 4 Hours Temp Pulse Resp BP Pulse Ox 05/12/17 07:17 97.6 F 64 18 128/65 93 05/12/17 05:04 69 15 137/74 97 05/12/17 04:15 74 General: Present: Conversant, No Apparent Distress HEENT: Present: Trachea midline, Pupils equal Neck: Absent: JVD Cardiac: Present: Irregular Rhythm Lungs: Present: Normal Breath Sounds Neuro: Present: Alert and responsive, No focal deficits noted, Motor nerves grossly intact, Sensory nerves grossly intact Abdomen: Present: Non-tender Vascular: Present: Normal capillary refill, Edema, Surgical incisions (incision clean and dry without hematoma), Other (Pedal signals are biphasic in the right foot.). Absent: Cyanosis Skin: Present: No rashes noted on visualized skin - VTE Documentation of Mechanical Device: Intermittent pneumatic compression device
[2017-05-12] MEDS ORDERED: Umeclidinium Brm/Vilanterol Tr [Anoro Ellipta 62.5-2 IH SCH (09:00)
[2017-05-12] MEDS ORDERED: VORTIOXETINE HYDROBROMIDE 15 MG PO SCH (09:00)
[2017-05-12] MEDS ORDERED: Furosemide 20 MG TABLET PO SCH (09:00)
[2017-05-12] MEDS ORDERED: Aspirin Enteric Coated 81 MG Tablet PO SCH (09:00)
[2017-05-12] MEDS ORDERED: *HR* Rivaroxaban 10 MG TABLET PO SCH (09:00)
[2017-05-12] MEDS ORDERED: *HR* Metformin 500 MG TABLET PO SCH (17:00)
== END 2017-05-12 11:30 | disposition home or self-care (01) | DRG 253 ==
LOC: SAMDAY 06:41 → 2NNU 13:10
PROVIDERS: ADMIT Surgery; ATTEND Surgery
PROC: VASFFBG (ICD-10-PCS; 2017-05-11 08:15)

== ENCOUNTER 2017-07-14 17:03 | Inpatient (IN) ==
[2017-07-14 19:24] LABS: Basophils % 0.4 %; Eosinophils # 0.2 K/mcL (0.0-0.6); Hematocrit 46.9 % (35.3-44.9); Hemoglobin 14.5 g/dL (11.5-15.4); Immature Granulocytes % 0.2 % (0-4); Lymphocytes % 22.8 %; Mean Corpuscular HGB Conc 30.9 g/dL (31.6-35.5); Mean Corpuscular Hemoglobin 25.7 pg (28.0-33.3); Monocytes # 0.6 K/mcL (0.0-1.3); Monocytes % 6.7 %; Neutrophils # 5.8 K/mcL (1.6-8.9); Platelet Count 262 K/mcL (140-400); Red Blood Count 5.65 M/mcL (3.82-4.97); Red Cell Distribution Width 18.4 % (11.5-14.5); Segmented Neutrophils % 67.9 %
[2017-07-14 19:29] LABS: INR 1.3; Prothrombin Time 14.5 Seconds (9.4-12.1)
[2017-07-14 19:35] LABS: BUN/Creatinine Ratio 9 (6-26); Blood Urea Nitrogen 6 mg/dL (7-20); Calcium 10.2 mg/dL (8.6-10.8); Carbon Dioxide 28 mEq/L (19-29); Chloride 104 mEq/L (98-109); Glucose 92 mg/dL (70-99); Osmolality,Calculated 295 (280-300); Potassium 3.1 mEq/L (3.5-4.5); Sodium 144 mEq/L (136-145); eGFR For African Americans > 60 (> 60); eGFR For Non-African Americans > 60 (> 60)
--- NOTE | 2017-07-14 19:44 | Emergency Department Note ---
Disposition Clinical Impression: Lower gastrointestinal hemorrhage, Hypomagnesemia, Hypokalemia Disposition: Admitted As Inpatient Referrals: NONE,PCP [Primary Care Provider] - Forms: ED Satisfaction Letter GI Bleed HPI - General Chief complaint: ED GI Bleed Stated complaint: bloody stool Time Seen by Provider: 07/14/17 18:52 Source: patient Limitations: no limitations Nursing Notes Reviewed: Yes Vital Signs Reviewed: Yes - History of Present Illness Pt Subjective Complaint: gross bloody stools Onset (ago): day(s) Number of episodes: 3 Consistency: intermittent Severity: mild Improves with: nothing Worsens with: nothing Context: anticoagulant use Associated symptoms: Reports: weakness Treatments Prior to Arrival: none - Related Data Home Medications Medication Instructions Recorded Confirmed Albuterol Sulfate [Albuterol 2 puff IH Q4H PRN 10/22/16 05/11/17 Inhaler] Aspirin [Lo-Dose Aspirin EC] 81 mg PO DAILY 10/22/16 05/11/17 Furosemide [Lasix] 20 mg PO DAILY 10/22/16 05/11/17 Gabapentin 600 mg PO TID 10/22/16 05/11/17 Isosorbide DInitrate [Isosorbide 30 mg PO BID 10/22/16 05/11/17 Dinitrate] Omeprazole [PriLOSEC] 20 mg PO DAILY 10/22/16 05/11/17 Rivaroxaban [Xarelto] 20 mg PO DAILY 10/22/16 05/11/17 Umeclidinium Brm/Vilanterol Tr 1 each IH DAILY 10/22/16 05/11/17 [Anoro Ellipta 62.5-25 Mcg INH] Atorvastatin Calcium [Lipitor] 80 mg PO HS 02/16/17 05/11/17 Vortioxetine Hydrobromide 15 mg PO DAILY 02/16/17 05/11/17 [Trintellix] clonazePAM [Klonopin] 0.5 - 1 mg PO TID PRN 02/16/17 05/11/17 Metformin HCl [Glucophage] 1,000 mg PO BID 05/11/17 05/11/17 Metoprolol [Lopressor] 25 mg PO BID 05/11/17 05/11/17 Previous Rx's Medication Instructions Recorded Ranolazine [Ranexa] 500 mg PO BID 30 Days 10/22/16 Ferrous Sulfate 325 mg PO BIDWM #60 tablet 02/21/17 Oxycodone HCl/Acetaminophen 1 tab PO Q6H PRN #20 tablet 05/12/17 [Percocet 5-325 mg Tablet] Allergies Allergy/AdvReac Type Severity Reaction Status Date / Time No Known Allergies Allergy Verified 07/14/17 17:15 All systems ED: reviewed and negative except as stated. Constitutional: Reports: weakness. Denies: fever, chills Gastrointestinal: Reports: nausea, vomiting, diarrhea Past Medical History - Past Medical History Source: patient, old records reviewed, nursing notes reviewed Medical history: Reports: CHF, COPD, coronary artery disease, DVT, hyperlipidemia, hypertension, myocardial infarction, peripheral artery disease, other Surgical history: Reports: hysterectomy, knee replacement, other, vascular surgery, LE bypass Psychiatric history: Reports: anxiety, depression - Social History Smoking Status: Current every day smoker Smokeless Tobacco Status: No Alcohol use: Reports: none Drug use: Reports: none Physical Exam - General Limitations: no limitations General appearance: alert - Head Head exam: atraumatic, normocephalic, normal inspection - Eye Eye exam: Present: normal appearance, PERRL, EOMI - Expanded Eye Exam Pupils: Left: reactive - ENT ENT exam: normal exam, normal oropharynx, mucous membranes moist - Expanded ENT Exam External ear exam: Present: normal external inspection Mouth exam: Present: normal external inspection Teeth exam: Present: normal inspection Throat exam: Present: normal inspection - Neck Neck exam: Present: normal inspection, full ROM, trachea midline - Chest Chest inspection: Present: normal inspection, symmetric chest wall rise - Respiratory Respiratory exam: Present: normal lung sounds bilaterally - Cardiovascular Cardiovascular exam: Present: regular rate, normal rhythm, normal heart sounds - Abdominal Exam Abdominal exam: Present: soft, normal bowel sounds. Absent: guarding, rebound Abdominal tenderness: Present: diffuse, mild - Extremities Exam Extremities exam: Present: normal inspection, full ROM. Absent: tenderness, pedal edema - Expanded Upper Extremity Exam Shoulder exam: Present: normal inspection, full ROM Arm exam: Present: normal inspection, full ROM Elbow exam: Present: normal inspection, full ROM Forearm/Wrist exam: Present: normal inspection, full ROM Hand exam: Present: normal inspection, full ROM Vascular exam: Normal: capillary refill, radial pulse - Expanded Lower Extremity Exam Hip/Pelvis exam: Present: normal inspection, full ROM Upper leg exam: Present: normal inspection, full ROM Knee exam: Present: normal inspection, full ROM Lower leg exam: Present: normal inspection, full ROM Ankle exam: Present: normal inspection, full ROM Foot/toe exam: Present: normal inspection, full ROM Neurovascular/Tendon exam: Absent: motor deficit, sensory deficit, tendon deficit - Back Exam Back exam: Present: normal inspection, full ROM. Absent: tenderness - Neurological Exam Neurological exam: Present: alert, oriented X3 - Expanded Neurological Exam Patient oriented to: Present: person, place, time Coma Scale Eye Opening: Spontaneous Coma Scale Motor Response: Obeys Commands Coma Scale Verbal Response: Oriented Coma Scale Total: 15 - Psychiatric Psychiatric exam: Present: normal affect, normal mood - Skin Skin exam: Present: warm, dry, intact, normal color Course Vital Signs Temperature 97.8 F 07/14/17 17:15 Pulse Rate 63 07/14/17 17:15 Respiratory Rate 20 07/14/17 17:15 Blood Pressure 155/93 07/14/17 17:15 O2 Sat by Pulse Oximetry 97 07/14/17 17:15 Temperature 97.8 F 07/14/17 17:15 Pulse Rate 63 07/14/17 17:15 Respiratory Rate 20 07/14/17 17:15 Blood Pressure 155/93 07/14/17 17:15 O2 Sat by Pulse Oximetry 97 07/14/17 17:15 Oxygen Delivery Oxygen Delivery Room Air GI Bleed - Lab Data Result diagrams: 07/14/17 19:18 07/14/17 19:18 Lab Results 07/14/17 07/14/17 07/14/17 Range/Units 19:18 19:18 19:18 WBC 8.6 (4.3-11.1) K/mcL RBC 5.65 H (3.82-4.97) M/mcL Hgb 14.5 (11.5-15.4) g/dL Hct 46.9 H (35.3-44.9) % MCV 83.0 (83.0-100.0) fL MCH 25.7 L (28.0-33.3) pg MCHC 30.9 L (31.6-35.5) g/dL RDW 18.4 H (11.5-14.5) % Plt Count 262 (140-400) K/mcL MPV 10.0 (9.4-12.4) fL Immature Gran % 0.2 (0-4) % Seg Neutrophils % 67.9 % Lymphocytes % 22.8 % Monocytes % 6.7 % Eosinophils % 2.0 % Basophils % 0.4 % Neutrophils # 5.8 (1.6-8.9) K/mcL Lymphocytes # 2.0 (0.6-4.6) K/mcL Monocytes # 0.6 (0.0-1.3) K/mcL Eosinophils # 0.2 (0.0-0.6) K/mcL Basophils # 0.0 (0.0-0.2) K/mcL PT 14.5 H (9.4-12.1) Seconds INR 1.3 APTT 33.0 (26.0-36.0) Seconds Sodium 144 (136-145) mEq/L Potassium 3.1 L (3.5-4.5) mEq/L Chloride 104 (98-109) mEq/L Carbon Dioxide 28 (19-29) mEq/L BUN 6 L (7-20) mg/dL Creatinine 0.66 (0.57-1.11) mg/dL Est GFR ( Amer) > 60 (> 60) Est GFR (Non-Af Amer) > 60 (> 60) BUN/Creatinine Ratio 9 (6-26) Glucose 92 (70-99) mg/dL Calculated Osmolality 295 (280-300) Calcium 10.2 (8.6-10.8) mg/dL Magnesium 1.2 L (1.6-2.6) mg/dL Blood Type Antibody Screen 07/14/17 Range/Units 19:18 WBC (4.3-11.1) K/mcL RBC (3.82-4.97) M/mcL Hgb (11.5-15.4) g/dL Hct (35.3-44.9) % MCV (83.0-100.0) fL MCH (28.0-33.3) pg MCHC (31.6-35.5) g/dL RDW (11.5-14.5) % Plt Count (140-400) K/mcL MPV (9.4-12.4) fL Immature Gran % (0-4) % Seg Neutrophils % % Lymphocytes % % Monocytes % % Eosinophils % % Basophils % % Neutrophils # (1.6-8.9) K/mcL Lymphocytes # (0.6-4.6) K/mcL Monocytes # (0.0-1.3) K/mcL Eosinophils # (0.0-0.6) K/mcL Basophils # (0.0-0.2) K/mcL PT (9.4-12.1) Seconds INR APTT (26.0-36.0) Seconds Sodium (136-145) mEq/L Potassium (3.5-4.5) mEq/L Chloride (98-109) mEq/L Carbon Dioxide (19-29) mEq/L BUN (7-20) mg/dL Creatinine (0.57-1.11) mg/dL Est GFR ( Amer) (> 60) Est GFR (Non-Af Amer) (> 60) BUN/Creatinine Ratio (6-26) Glucose (70-99) mg/dL Calculated Osmolality (280-300) Calcium (8.6-10.8) mg/dL Magnesium (1.6-2.6) mg/dL Blood Type O POSITIVE Antibody Screen NEGATIVE
[2017-07-14 19:53] LABS: Magnesium 1.2 mg/dL (1.6-2.6)
[2017-07-14] MEDS ORDERED: Ondansetron 4 MG/2 ML VIAL IVP ONE (20:46)
[2017-07-14] MEDS ORDERED: 0.9 % Sodium Chloride 1,000 ML IVC ONE (20:46)
[2017-07-14] MEDS ORDERED: Potassium Chloride Elixir 20 MEQ/15 ML UDC PO ONE (22:13)
--- NOTE | 2017-07-14 23:16 | Internal Med History&Physical ---
Date of Encounter: 07/14/17 Time of Encounter: 23:16 Assessment and Plan (1) GI bleed Current visit: Yes Status: Acute patient who is on systemic anticoagulation with xarelto comes in with bright red blood per rectum, no prior hx of bleeding or diverticulosis, she had non bleeding polyps recently, we will admit for monitoring, Hb is stable, we will cycle it and clinically monitor for continuous bleed, she may need GI input should this continue, we will type and screen in the meantime Qualifiers: GI bleed type/associated pathology: anorectal hemorrhage Qualified Code(s) : K62.5 - Hemorrhage of anus and rectum (2) COPD (chronic obstructive pulmonary disease) Current visit: Yes Status: Chronic stable, she still smokes cigarettes though she has cut down, will do PRN nebs Qualifiers: COPD type: chronic bronchitis Chronic bronchitis type: simple Qualified Code(s): J41.0 - Simple chronic bronchitis (3) HTN (hypertension) Current visit: Yes Status: Chronic hypertensive on presentation though she has a GI bleed, we will continue her antihypertensives with BP monitoring Qualifiers: Hypertension type: essential hypertension Qualified Code(s): I10 - Essential (primary) hypertension (4) Chronic atrial fibrillation Current visit: Yes Status: Chronic pt with a hx of chronic AFIB o systemic anticoagulation, she is also on metoprolol for rate control, we will continue these Internal Medicine - H&P: HPI Chief complaint: bleeding from rectum Admitted From: Emergency Dept Plans for Post Hospital Care: Home History of present illness: Ms. Costa is a 66 year old female with a hx of chronic AFIB on systemic anticoagulation with Xarelto was in her usual state of health until this morning at around 6am when she began to have bright red blood per rectum. She reports having about 4 episodes prior to showing up in the ER of [facility]. The amount is described as moderate to large in volume. She denies prior episodes, no associated lightheadedness, dyspnea or easy fatigability. She denies prior dark stool before onset of bright red stools. She intermittently had associated abdominal pain mainly in the epigastric and lower abdominal area. She reports a colonoscopy a couple of months ago here at [facility] which showed multiple non bleeding polyps, no prior EGD. Past Med Surg Social Fam HX - Past Medical History Medical history: arthritis, CHF, COPD, coronary artery disease, DVT, hyperlipidemia, hypertension, myocardial infarction, peripheral artery disease, other Psychiatric history: anxiety, depression - Past Surgical History Surgical History: angioplasty/stent, cholecystectomy, hysterectomy, knee replacement, other, vascular surgery, LE bypass - Social History Smoking Status: Current every day smoker Smokeless Tobacco Status: No Alcohol use: none Drug use: none - Family History Mother History Unknown: Yes Adopted: No Living Status: Age at : 80 Hx Family Cardiac Disorders: Yes Hx Family Respiratory Disorders: Yes Hx Family Cancer: No Hx Family GI Disorders: No Hx Family Endocrine Disorder: Yes Hx Family Neuromuscular Disorders: No Hx Family Neurologic Disorders: No Hx Family HEENT Disorders: No Hx Family Autoimmune Disorders: No Father History Unknown: Yes Adopted: No Living Status: Age at : 78 Hx Family Cardiac Disorders: Yes Hx Family Cancer: Yes (Prostate) Hx Family Endocrine Disorder: Yes (DM) Internal Medicine - H&P: Meds Albuterol Sulfate [Albuterol Inhaler] 2 puff IH Q4H PRN 10/22/16 [History] Aspirin [Lo-Dose Aspirin EC] 81 mg PO DAILY 10/22/16 [History] Furosemide [Lasix] 20 mg PO DAILY 10/22/16 [History] Gabapentin 600 mg PO TID 10/22/16 [History] Isosorbide DInitrate [Isosorbide Dinitrate] 30 mg PO BID 10/22/16 [History] Ranolazine [Ranexa] 500 mg PO BID 30 Days 10/22/16 [Rx] Rivaroxaban [Xarelto] 20 mg PO DAILY 10/22/16 [History] Umeclidinium Brm/Vilanterol Tr [Anoro Ellipta 62.5-25 Mcg INH] 1 puff IH DAILY 10/22/16 [History] Atorvastatin Calcium [Lipitor] 80 mg PO HS 02/16/17 [History] Vortioxetine Hydrobromide [Trintellix] 15 mg PO DAILY 02/16/17 [History] clonazePAM [Klonopin] 0.5 - 1 mg PO TID PRN 02/16/17 [History] Metformin HCl [Glucophage] 1,000 mg PO BID 05/11/17 [History] Metoprolol [Lopressor] 25 mg PO BID 05/11/17 [History] Oxycodone HCl/Acetaminophen [Percocet 5-325 mg Tablet] 1 tab PO Q6H PRN #20 tablet 05/12/17 [Rx] 3 Allergy/AdvReac Type Severity Reaction Status Date / Time No Known Allergies Allergy Verified 07/14/17 17:15 All Systems PM: A 10-system review of systems was performed and is negative for pertinent findings except as documented above in the HPI. - Constitutional Vitals: Temp Pulse Resp BP Pulse Ox 0 F L 63 18 140/88 97 07/14/17 22:06 07/14/17 17:15 07/14/17 22:06 07/14/17 22:06 07/14/17 17:15 GENERAL: Adult female, Alert, not in acute distress, HEENT: NC/AT, EOMI, PERRLA, anicteric sclera, normal conjunctiva, supple, clear nares, moist mucous membranes, RESP: Lungs are clear to auscultation bilaterally, good AE bilaterally, No crackles or wheeze CARDIO: Normal hearts sounds; S1 and 2, RRR with no murmurs, no JVD, no ankle edema GI: Soft, full, tenderness in the epigastric area and suprapubic region with no guarding, no organomegaly felt, normal bowel sounds heard MUSCULOSKELETAL: grossly normal movements bilaterally, no deformities noted, NEUROLOGIC: CN 2-12 intact grossly. No gross motor/sensory deficit appreciated, PSYCHIATRY: AAO x 3. Mood is fair, SKIN: a few areas of patchy ecchymoses on the upper extremities Internal Med - H&P Results - Labs CBC & Chem 7: 07/15/17 05:30 07/14/17 19:18 - Diagnostic Studies CT scan - abdomen Status: image reviewed by me
[2017-07-14] MEDS ORDERED: Naloxone 0.4 MG/ML INJ IVP PRN (23:29)
[2017-07-14] MEDS ORDERED: Dextrose Gel 15 GM PO PRN ×2 (23:31)
[2017-07-14] MEDS ORDERED: D5% in Water 1,000 ML IVC PRN (23:31)
[2017-07-14] MEDS ORDERED: *HR* Dextrose 50 % in Water (Syg) 50 ML SYRINGE IVP PRN (23:31)
[2017-07-14] MEDS ORDERED: Albuterol 2.5 MG/3 ML NEBULIZER IH PRN (23:36)
[2017-07-14] MEDS ORDERED: Insulin LISPRO 300 UNITS/3 ML VIAL SQ ONE (23:54)
[2017-07-14] MEDS: Ranolazine 500 MG TAB.ER.12H PO SCH (23:56)
[2017-07-14] MEDS: Gabapentin 300 MG CAPSULE PO SCH (23:56)
[2017-07-15] MEDS: Insulin LISPRO 300 UNITS/3 ML VIAL SQ SCH ×6 (00:21→21:44)
[2017-07-15] MEDS: clonazePAM 0.5 MG TABLET PO PRN ×3 (01:32→18:50)
[2017-07-15] MEDS ORDERED: *HR* Labetalol 20 MG/4 ML SYRINGE IVP PRN (03:09)
[2017-07-15 05:47] LABS: Hematocrit 42.9 % (35.3-44.9); Hemoglobin 13.4 g/dL (11.5-15.4); Mean Corpuscular HGB Conc 31.2 g/dL (31.6-35.5); Mean Corpuscular Hemoglobin 26.1 pg (28.0-33.3); Mean Corpuscular Volume 83.5 fL (83.0-100.0); Mean Platelet Volume 9.4 fL (9.4-12.4); Platelet Count 220 K/mcL (140-400); Red Blood Count 5.14 M/mcL (3.82-4.97); Red Cell Distribution Width 18.1 % (11.5-14.5)
[2017-07-15 05:58] LABS: BUN/Creatinine Ratio 11 (6-26); Blood Urea Nitrogen 7 mg/dL (7-20); Calcium 9.2 mg/dL (8.6-10.8); Carbon Dioxide 30 mEq/L (19-29); Chloride 108 mEq/L (98-109); Glucose 105 mg/dL (70-99); Magnesium 1.7 mg/dL (1.6-2.6); Osmolality,Calculated 296 (280-300); Phosphorous 3.4 mg/dL (2.3-4.7); Potassium 3.2 mEq/L (3.5-4.5); Sodium 144 mEq/L (136-145); eGFR For African Americans > 60 (> 60); eGFR For Non-African Americans > 60 (> 60)
[2017-07-15] MEDS ORDERED: Potassium Chloride 40 MEQ, Lidocaine 1% 2 ML in D5% in Water 500 ML IVPB ONE (08:13)
[2017-07-15] MEDS: Gabapentin 300 MG CAPSULE PO SCH ×3 (08:26→21:05)
[2017-07-15] MEDS: Ranolazine 500 MG TAB.ER.12H PO SCH ×2 (08:26→21:05)
[2017-07-15] MEDS: Furosemide 20 MG TABLET PO SCH (08:26)
[2017-07-15] MEDS: VORTIOXETINE HYDROBROMIDE 15 MG PO SCH (08:41)
[2017-07-15] MEDS ORDERED: Aspirin Enteric Coated 81 MG Tablet PO SCH (09:00)
[2017-07-15] MEDS ORDERED: *HR* Rivaroxaban 10 MG TABLET PO SCH (09:00)
[2017-07-15] MEDS ORDERED: *HR* OxyCODONE/APAP 5/325 TABLET PO PRN (12:56)
--- NOTE | 2017-07-15 13:26 | Internal Med Progress Note ---
Date of Encounter: 07/15/17 Time of Encounter: 12:25 - Assessment and plan (1) GI bleed Current Visit: Yes Status: Acute Assessment and plan: NO recurrent episodes noted since hospitalization H&H within acceptable range will hold Xarelto and Aspirin at this time Surgery consultation requested for colonoscopy, however patient wishes to have her colonoscopy by Dr. Torrez Clear liquid diet tomorrow and prep for colonoscopy on Monday will closely monitor H&H and transfuse as needed Qualifiers: GI bleed type/associated pathology: anorectal hemorrhage Qualified Code(s) : K62.5 - Hemorrhage of anus and rectum (2) COPD (chronic obstructive pulmonary disease) Current Visit: Yes Status: Chronic Assessment and plan: not in acute exacerbation continue home meds pt reports of being an everyday smoker smoking cessation counseling provided patient not ready to quit at this time Qualifiers: COPD type: chronic bronchitis Chronic bronchitis type: simple Qualified Code(s): J41.0 - Simple chronic bronchitis (3) HTN (hypertension) Current Visit: Yes Status: Chronic Assessment and plan: BP better controlled continue home medications Hydralazine 10mg IVP q6h prn SBP>150 Qualifiers: Hypertension type: essential hypertension Qualified Code(s): I10 - Essential (primary) hypertension (4) HLD (hyperlipidemia) Current Visit: No Status: Chronic Assessment and plan: continue Lipitor Qualifiers: Hyperlipidemia type: mixed hyperlipidemia Qualified Code(s): E78.2 - Mixed hyperlipidemia (5) DVT prophylaxis Current Visit: No Status: Acute Assessment and plan: SCD (6) Chronic atrial fibrillation Current Visit: Yes Status: Chronic Assessment and plan: Rate controlled with BB holding anticoagualation due to GI bleed (7) Hypokalemia Current Visit: Yes Status: Acute Assessment and plan: K supplemented continue to monitor electrolytes and replace as needed - Subjective Interval history: Patient seen and examined at bedside. Sitting in bed and eating clear liquid diet. Reports of not having any acute bleeding since hospitalization. Gen surgery consultation was requested for colonoscopy given BRBPR however patient wishes to have the colonoscopy by . Since patient is hemodynamically stable and not acutely bleeding, will defer colonoscopy until monday. She also reports of having chronic back and b/l LE pain for which she takes Percocet and requesting continuation of this medication at time. She also wants to advance her diet today since the colonoscopy until Monday. will start Cardiac/ADA diet today. clears tomorrow. - Constitutional Vitals: Temp Pulse Resp BP Pulse Ox 97.5 F L 67 16 118/70 93 07/15/17 10:31 07/15/17 10:31 07/15/17 10:31 07/15/17 10:31 07/15/17 10:31 General appearance: Present: A&O X 3, no acute distress, answers questions appropriately - Head Head exam: Present: atraumatic, normocephalic - Eye Eye exam: Present: conjuntiva pink, sclera anicteric - Respiratory Respiratory exam: Present: CTAB. Absent: accessory muscle use, rales, rhonchi, wheezes - Cardiovascular Cardiovascular exam: Present: RRR, +S1, +S2. Absent: diastolic murmur, gallop, rubs, systolic murmur - GI/Abdominal GI/Abdominal exam: Present: normal bowel sounds, soft, no peritoneal signs. Absent: distended, tenderness - Extremities Exam Extremities exam: Present: warm, radial pulses palpable and symmetrical. Absent : calf tenderness, cyanotic, pedal edema - Neurological Exam Neurological exam: Present: alert, oriented X3 - Psychiatric Psychiatric exam: Present: normal affect, normal mood Internal Medicine: Result - Labs CBC & Chem 7: 07/15/17 05:30 07/15/17 05:30 Labs: Short CBC 07/15/17 Range/Units 05:30 WBC 8.1 (4.3-11.1) K/mcL Hgb 13.4 (11.5-15.4) g/dL Hct 42.9 (35.3-44.9) % Plt Count 220 (140-400) K/mcL [facility] 07/15/17 05:30 Sodium 144 Potassium 3.2 L Chloride 108 Carbon Dioxide 30 H BUN 7 Creatinine 0.64 Glucose 105 H Calcium 9.2 - ABG Interpretation ABG results: PT/INR, D-dimer PT 14.5 Seconds (9.4-12.1) H 07/14/17 19:18 Consult Discharge Plan - Plan Instructions: Chronic Obstructive Pulmonary Disease (DC)
--- NOTE | 2017-07-15 14:08 | Event Note ---
Date of Encounter: 07/15/17 Time of Encounter: 10:00 went to see patient, she had already had regular diet this am patient states she was scoped by Dr Torrez about 6 months ago and multiple adenomas of the colon was found she has been on xeralto for Afib she states she would prefer Dr Torrez do her colonsocopy as he did her previous one recommend clears and bowel prep tomorrow, npo at midnight monday and consult Shan monday am
[2017-07-15] MEDS: *HR* OxyCODONE/APAP 5/325 TABLET PO PRN (21:11)
[2017-07-16 07:49] LABS: BUN/Creatinine Ratio 23 (6-26); Blood Urea Nitrogen 17 mg/dL (7-20); Calcium 9.5 mg/dL (8.6-10.8); Carbon Dioxide 30 mEq/L (19-29); Chloride 108 mEq/L (98-109); Glucose 110 mg/dL (70-99); Magnesium 1.7 mg/dL (1.6-2.6); Osmolality,Calculated 298 (280-300); Phosphorous 4.4 mg/dL (2.3-4.7); Potassium 3.6 mEq/L (3.5-4.5); Sodium 143 mEq/L (136-145); eGFR For African Americans > 60 (> 60); eGFR For Non-African Americans > 60 (> 60)
[2017-07-16] MEDS: Ranolazine 500 MG TAB.ER.12H PO SCH ×2 (08:08→20:48)
[2017-07-16] MEDS: Gabapentin 300 MG CAPSULE PO SCH ×3 (08:08→20:48)
[2017-07-16] MEDS: Furosemide 20 MG TABLET PO SCH (08:09)
[2017-07-16] MEDS: Insulin LISPRO 300 UNITS/3 ML VIAL SQ SCH ×4 (08:09→20:41)
[2017-07-16] MEDS: VORTIOXETINE HYDROBROMIDE 15 MG PO SCH (08:10)
[2017-07-16 08:12] LABS: Basophils % 0.3 %; Eosinophils # 0.2 K/mcL (0.0-0.6); Eosinophils % 2.7 %; Hematocrit 38.8 % (35.3-44.9); Immature Granulocytes % 0.3 % (0-4); Immature Platelets 2.1 % (1.1-6.1); Lymphocytes # 1.9 K/mcL (0.6-4.6); Lymphocytes % 28.2 %; Mean Corpuscular HGB Conc 30.7 g/dL (31.6-35.5); Mean Corpuscular Hemoglobin 25.7 pg (28.0-33.3); Mean Corpuscular Volume 83.8 fL (83.0-100.0); Mean Platelet Volume 9.5 fL (9.4-12.4); Monocytes # 0.6 K/mcL (0.0-1.3); Monocytes % 8.4 %; Neutrophils # 4.1 K/mcL (1.6-8.9); Platelet Count 221 K/mcL (140-400); Red Blood Count 4.63 M/mcL (3.82-4.97); Red Cell Distribution Width 17.9 % (11.5-14.5); Segmented Neutrophils % 60.1 %
[2017-07-16 08:14] LABS: Hemoglobin 11.9 g/dL (11.5-15.4)
[2017-07-16] MEDS: clonazePAM 0.5 MG TABLET PO PRN ×2 (08:15→17:08)
[2017-07-16] MEDS: *HR* OxyCODONE/APAP 5/325 TABLET PO PRN ×2 (08:15→17:08)
[2017-07-16] MEDS ORDERED: SODIUM CHLORIDE/NAHCO3/KCL/PEG 4,000 ML SOLN.RECON PO ONE (10:26)
--- NOTE | 2017-07-16 10:31 | Internal Med Progress Note ---
Date of Encounter: 07/16/17 Time of Encounter: 10:29 - Assessment and plan (1) GI bleed Current Visit: Yes Status: Acute Assessment and plan: NO recurrent episodes noted since hospitalization H&H within acceptable range will hold Xarelto and Aspirin at this time Surgery consultation requested for colonoscopy, however patient wishes to have her colonoscopy by Dr. Torrez GI evaluation requested Clear liquid diet and prep for colonoscopy on Monday (07/17/17) NPO after midnight will closely monitor H&H and transfuse as needed Qualifiers: GI bleed type/associated pathology: anorectal hemorrhage Qualified Code(s) : K62.5 - Hemorrhage of anus and rectum (2) COPD (chronic obstructive pulmonary disease) Current Visit: Yes Status: Chronic Assessment and plan: not in acute exacerbation continue home meds pt reports of being an everyday smoker smoking cessation counseling provided patient not ready to quit at this time Qualifiers: COPD type: chronic bronchitis Chronic bronchitis type: simple Qualified Code(s): J41.0 - Simple chronic bronchitis (3) HTN (hypertension) Current Visit: Yes Status: Chronic Assessment and plan: BP better controlled continue home medications Hydralazine 10mg IVP q6h prn SBP>150 Qualifiers: Hypertension type: essential hypertension Qualified Code(s): I10 - Essential (primary) hypertension (4) HLD (hyperlipidemia) Current Visit: No Status: Chronic Assessment and plan: continue Lipitor Qualifiers: Hyperlipidemia type: mixed hyperlipidemia Qualified Code(s): E78.2 - Mixed hyperlipidemia (5) DVT prophylaxis Current Visit: No Status: Acute Assessment and plan: SCD (6) Chronic atrial fibrillation Current Visit: Yes Status: Chronic Assessment and plan: Rate controlled with BB holding anticoagualation due to GI bleed (7) Hypokalemia Current Visit: Yes Status: Resolved - Subjective Interval history: Patient seen and examined at bedside. No recurrent BRBPR has been reported but noted to have a gradual decline in H&H. Will do clear liquid diet and golytely prep for colonoscopy in am. NPO after midnight. - Constitutional Vitals: Temp Pulse Resp BP Pulse Ox 97.5 F L 61 16 157/87 95 07/16/17 08:05 07/16/17 08:05 07/16/17 08:05 07/16/17 08:05 07/16/17 08:05 General appearance: Present: A&O X 3, no acute distress, answers questions appropriately - Head Head exam: Present: atraumatic, normocephalic - Eye Eye exam: Present: conjuntiva pink, sclera anicteric - Respiratory Respiratory exam: Present: CTAB. Absent: accessory muscle use, rales, rhonchi, wheezes - Cardiovascular Cardiovascular exam: Present: RRR, +S1, +S2. Absent: diastolic murmur, gallop, rubs, systolic murmur - GI/Abdominal GI/Abdominal exam: Present: normal bowel sounds, soft, no peritoneal signs. Absent: distended, tenderness - Extremities Exam Extremities exam: Present: warm, radial pulses palpable and symmetrical. Absent : calf tenderness, cyanotic, pedal edema - Neurological Exam Neurological exam: Present: alert, oriented X3 - Psychiatric Psychiatric exam: Present: normal affect, normal mood Internal Medicine: Result - Labs CBC & Chem 7: 07/16/17 08:05 07/16/17 06:21 Labs: Short CBC 07/16/17 Range/Units 08:05 WBC 6.8 (4.3-11.1) K/mcL Hgb 11.9 D (11.5-15.4) g/dL Hct 38.8 (35.3-44.9) % Plt Count 221 (140-400) K/mcL Neutrophils # 4.1 (1.6-8.9) K/mcL BMP 07/16/17 06:21 Sodium 143 Potassium 3.6 Chloride 108 Carbon Dioxide 30 H BUN 17 D Creatinine 0.73 Glucose 110 H Calcium 9.5 - ABG Interpretation ABG results: PT/INR, D-dimer PT 14.5 Seconds (9.4-12.1) H 07/14/17 19:18 Consult Discharge Plan - Plan Instructions: Chronic Obstructive Pulmonary Disease (DC) Referrals: NONE,PCP [Primary Care Provider] -
[2017-07-16] MEDS ORDERED: Acetaminophen 325 MG TABLET PO PRN (22:14)
[2017-07-17 04:58] LABS: Basophils % 0.4 %; Eosinophils # 0.2 K/mcL (0.0-0.6); Eosinophils % 2.7 %; Hematocrit 37.9 % (35.3-44.9); Hemoglobin 11.7 g/dL (11.5-15.4); Immature Granulocytes % 0.2 % (0-4); Lymphocytes # 2.1 K/mcL (0.6-4.6); Lymphocytes % 38.7 %; Mean Corpuscular HGB Conc 30.9 g/dL (31.6-35.5); Mean Corpuscular Hemoglobin 25.9 pg (28.0-33.3); Mean Corpuscular Volume 83.8 fL (83.0-100.0); Mean Platelet Volume 10.2 fL (9.4-12.4); Monocytes # 0.5 K/mcL (0.0-1.3); Monocytes % 9.6 %; Neutrophils # 2.7 K/mcL (1.6-8.9); Platelet Count 208 K/mcL (140-400); Red Blood Count 4.52 M/mcL (3.82-4.97); Red Cell Distribution Width 17.6 % (11.5-14.5); Segmented Neutrophils % 48.4 %
[2017-07-17 05:19] LABS: BUN/Creatinine Ratio 17 (6-26); Blood Urea Nitrogen 10 mg/dL (7-20); Carbon Dioxide 28 mEq/L (19-29); Chloride 108 mEq/L (98-109); Glucose 84 mg/dL (70-99); Magnesium 1.7 mg/dL (1.6-2.6); Osmolality,Calculated 290 (280-300); Phosphorous 3.7 mg/dL (2.3-4.7); Potassium 3.9 mEq/L (3.5-4.5); Sodium 141 mEq/L (136-145); eGFR For African Americans > 60 (> 60); eGFR For Non-African Americans > 60 (> 60)
[2017-07-17] MEDS: Insulin LISPRO 300 UNITS/3 ML VIAL SQ SCH ×4 (08:03→21:57)
[2017-07-17] MEDS: Furosemide 20 MG TABLET PO SCH (08:10)
[2017-07-17] MEDS: Gabapentin 300 MG CAPSULE PO SCH ×3 (08:10→20:17)
[2017-07-17] MEDS: Ranolazine 500 MG TAB.ER.12H PO SCH ×2 (08:11→20:17)
[2017-07-17] MEDS: VORTIOXETINE HYDROBROMIDE 15 MG PO SCH (08:13)
[2017-07-17] MEDS: *HR* OxyCODONE/APAP 5/325 TABLET PO PRN ×2 (08:20→16:16)
[2017-07-17] MEDS: clonazePAM 0.5 MG TABLET PO PRN ×2 (08:20→16:15)
--- NOTE | 2017-07-17 10:52 | Gastroenterology Consult Note ---
<Mynor Berry - Last Filed: 07/17/17 10:50> Date of Encounter: 07/17/17 Time of Encounter: 10:20 - Assessment and plan (1) Lower gastrointestinal hemorrhage Current Visit: Yes Status: Acute Assessment and plan: Pt with 4 episodes of BRBPR prior to admission and one in the ED. Hgb 14.5 on admission and 11.7 today. Continue to monitor CBC. Plan for colonoscopy today, keep pt NPO. (2) Chronic atrial fibrillation Current Visit: Yes Status: Chronic Assessment and plan: Continue to hold anticoagulation. (3) COPD (chronic obstructive pulmonary disease) Current Visit: Yes Status: Chronic Assessment and plan: Management per primary team. Qualifiers: COPD type: chronic bronchitis Chronic bronchitis type: simple Qualified Code(s): J41.0 - Simple chronic bronchitis - Time Spent With Patient Total time spent is greater than 50% in coordination of care (as documented) at patient's floor/unit and/or counseling patient: GI History of Present Illness - Data of Consult Patient: known to practice within the last 3 years Consult date: 07/17/17 Requesting Physician: Angela Chand MD - Consult Narrative Reason for consult: Lower GI Bleed History of present illness: Ms. Costa is a 66 year old female with PMHx of arthritis, CHF, COPD, CAD, DVT, hyperlipidemia, HTN, CT, peripheral artery disease, who presented to the ED with BRBPR. She reports having about 4 episodes prior to admission. The amount is described as moderate to large in volume. She denies prior episodes, no associated lightheadedness, dyspnea or easy fatigability. She denies prior dark stool before onset of bright red stools. She intermittently had associated abdominal pain mainly in the epigastric and lower abdominal area. She reports a colonoscopy a couple of months ago here at [place] which showed multiple non bleeding polyps, no prior EGD. Surgery was consulted for colonoscopy, but pt requested to have colonoscopy by Dr. Torrez. ASA and Xarelto are currently being held. Procedures: 02/20/2017 Dr. Torrez: Multiple tubular adenomas: Two 12 mm ascending colon, one 30 mm mid descending colon, one 10 mm descending colon, one 20 mm sigmoid colon, one 6 mm sigmoid colon. Repeat Cscope 6 months NSAIDs: ASA Anticoagulation: Xarelto Past Med Surg Social Fam HX - Past Medical History Medical history: arthritis, CHF, COPD, coronary artery disease, DVT, hyperlipidemia, hypertension, myocardial infarction, peripheral artery disease, other Psychiatric history: anxiety, depression - Past Surgical History Surgical History: angioplasty/stent, cholecystectomy, hysterectomy, knee replacement, other, vascular surgery, LE bypass - Social History Smoking Status: Current every day smoker Smokeless Tobacco Status: No Alcohol use: none Drug use: none - Family History Mother History Unknown: Yes Adopted: No Living Status: Age at : 80 Hx Family Cardiac Disorders: Yes Hx Family Respiratory Disorders: Yes Hx Family Cancer: No Hx Family GI Disorders: No Hx Family Endocrine Disorder: Yes Hx Family Neuromuscular Disorders: No Hx Family Neurologic Disorders: No Hx Family HEENT Disorders: No Hx Family Autoimmune Disorders: No Father History Unknown: Yes Adopted: No Living Status: Age at : 78 Hx Family Cardiac Disorders: Yes Hx Family Cancer: Yes (Prostate) Hx Family Endocrine Disorder: Yes (DM) - Gastrointestinal Gastrointestinal: Present: as per HPI - Constitutional Constitutional: as per HPI - EENT Eyes: as per HPI Ears: Present: as per HPI Nose, mouth and throat: Present: as per HPI - Cardiovascular Cardiovascular ROS: Present: as per HPI - Respiratory Respiratory IM: Present: as per HPI - Genitourinary Genitourinary: Absent: change in color, Urinary frequency - Neurological ROS Neurological GI: Present: as per HPI - Hematologic/Lymphatic Hematologic/Lymphatic pediatric: Present: as per HPI - Musculoskeletal Musculoskeletal ROS GI: Present: as per HPI - Integumentary Integumentary GI: Present: as per HPI - Psychiatric ROS Psychiatric GI: Present: as per HPI - Endocrine Endocrine IM: Present: as per HPI - Constitutional Vitals: Temp Pulse Resp BP Pulse Ox 97.7 F 76 16 148/68 94 07/17/17 07:00 07/17/17 07:00 07/17/17 07:00 07/17/17 08:05 07/17/17 07:00 General appearance: Present: cooperative, A&O X 3, no acute distress, answers questions appropriately - Head Head exam: Present: atraumatic, normocephalic - Eye Eye exam: Present: normal appearance, sclera anicteric - ENT ENT exam: Present: mucous membranes dry - Neck Neck exam general surgery: Present: normal inspection, trachea midline - Respiratory Respiratory exam: Present: CTAB. Absent: rales, rhonchi - Cardiovascular Cardiovascular exam: Present: RRR, +S1, +S2 - GI/Abdominal GI/Abdominal exam: Present: soft, tenderness (mild epigastric tenderness), no peritoneal signs. Absent: distended, firm, guarding - Rectal Rectal exam: Present: deferred - Extremities Exam Extremities exam: Present: warm - Neurological Exam Neurological exam: Present: no focal deficits - Psychiatric Psychiatric exam: Present: normal affect, normal mood - Skin Skin exam: Present: dry, intact, normal color, warm Results - Labs CBC & Chem 7: 07/17/17 03:15 07/17/17 03:15 Labs: Last Result Calcium 9.0 mg/dL (8.6-10.8) 07/17/17 03:15 Stool Occult Blood Positive (Negative) A 07/14/17 19:35 Entire Visit Hgb 11.7 g/dL (11.5-15.4) 07/17/17 03:15 Hct 37.9 % (35.3-44.9) 07/17/17 03:15 PT 14.5 Seconds (9.4-12.1) H 07/14/17 19:18 - ABG ABG results: PT/INR, D-dimer PT 14.5 Seconds (9.4-12.1) H 07/14/17 19:18 Consult Discharge Plan - Plan Instructions: Chronic Obstructive Pulmonary Disease (DC) Referrals: Yordy Mckinley DO [Resident] - 07/24/17 10:00 am <Patricio Torrez - Last Filed: 07/18/17 08:05> Date of Encounter: 07/17/17 Time of Encounter: 17:00 - Time Spent With Patient Total time spent is greater than 50% in coordination of care (as documented) at patient's floor/unit and/or counseling patient: GI History of Present Illness - Data of Consult Requesting Physician: Tha Bal MD - Consult Narrative History of present illness: Ms. Costa is a 66 year old female - Constitutional Vitals: Temp Pulse Resp BP Pulse Ox 97.5 F L 61 14 164/91 96 07/18/17 06:56 07/18/17 06:56 07/18/17 06:56 07/18/17 06:56 07/18/17 06:56 Results - Labs CBC & Chem 7: 07/18/17 04:11 07/17/17 03:15 Labs: Last Result Calcium 9.0 mg/dL (8.6-10.8) 07/17/17 03:15 Stool Occult Blood Positive (Negative) A 07/14/17 19:35 Entire Visit Hgb 11.8 g/dL (11.5-15.4) 07/18/17 04:11 Hct 38.2 % (35.3-44.9) 07/18/17 04:11 PT 14.5 Seconds (9.4-12.1) H 07/14/17 19:18 - ABG ABG results: PT/INR, D-dimer PT 14.5 Seconds (9.4-12.1) H 07/14/17 19:18 - Attending Attestation I examined this patient and my medical decision-making was reviewed with the Resident Physician. I agree with the documented findings, disposition and treatment plan as described except to the extent set forth below.
--- NOTE | 2017-07-17 10:53 | Internal Med Progress Note ---
Date of Encounter: 07/17/17 Time of Encounter: 10:51 - Assessment and plan (1) GI bleed Current Visit: Yes Status: Acute Assessment and plan: NO recurrent episodes noted since hospitalization H&H within acceptable range will hold Xarelto and Aspirin at this time Surgery consultation requested for colonoscopy, however patient wishes to have her colonoscopy by Dr. Torrez GI evaluation requested-pt to undergo colonoscopy by Dr. Torrez today (07/17/17) will closely monitor H&H and transfuse as needed Qualifiers: Qualified Code(s): K62.5 - Hemorrhage of anus and rectum (2) COPD (chronic obstructive pulmonary disease) Current Visit: Yes Status: Chronic Assessment and plan: not in acute exacerbation continue home meds pt reports of being an everyday smoker smoking cessation counseling provided patient not ready to quit at this time Qualifiers: Qualified Code(s): J41.0 - Simple chronic bronchitis (3) HTN (hypertension) Current Visit: Yes Status: Chronic Assessment and plan: BP better controlled continue home medications Hydralazine 10mg IVP q6h prn SBP>150 Qualifiers: Qualified Code(s): I10 - Essential (primary) hypertension (4) HLD (hyperlipidemia) Current Visit: No Status: Chronic Assessment and plan: continue Lipitor Qualifiers: Qualified Code(s): E78.2 - Mixed hyperlipidemia (5) DVT prophylaxis Current Visit: No Status: Acute Assessment and plan: SCD (6) Chronic atrial fibrillation Current Visit: Yes Status: Chronic Assessment and plan: Rate controlled with BB holding anticoagualation due to GI bleed (7) Hypokalemia Current Visit: Yes Status: Resolved Assessment and plan: Resolved continue to monitor electrolytes and replace as needed - Subjective Interval history: Patient seen and examined at bedside. No recurrent BRBPR has been reported but noted to have a gradual decline in H&H. Scheduled for colonoscopy later today. No overnight events reported. - Constitutional Vitals: Temp Pulse Resp BP Pulse Ox 97.7 F 76 16 148/68 94 07/17/17 07:00 07/17/17 07:00 07/17/17 07:00 07/17/17 08:05 07/17/17 07:00 General appearance: Present: A&O X 3, no acute distress, answers questions appropriately - Head Head exam: Present: atraumatic, normocephalic - Eye Eye exam: Present: conjuntiva pink, sclera anicteric - Respiratory Respiratory exam: Present: CTAB. Absent: accessory muscle use, rales, rhonchi, wheezes - Cardiovascular Cardiovascular exam: Present: RRR, +S1, +S2. Absent: diastolic murmur, gallop, rubs, systolic murmur - GI/Abdominal GI/Abdominal exam: Present: normal bowel sounds, soft, no peritoneal signs. Absent: distended, tenderness - Extremities Exam Extremities exam: Present: warm, radial pulses palpable and symmetrical. Absent : calf tenderness, cyanotic, pedal edema - Neurological Exam Neurological exam: Present: alert, oriented X3 - Psychiatric Psychiatric exam: Present: normal affect, normal mood Internal Medicine: Result - Labs CBC & Chem 7: 07/17/17 03:15 07/17/17 03:15 Labs: Short CBC 07/17/17 Range/Units 03:15 WBC 5.5 (4.3-11.1) K/mcL Hgb 11.7 (11.5-15.4) g/dL Hct 37.9 (35.3-44.9) % Plt Count 208 (140-400) K/mcL Neutrophils # 2.7 (1.6-8.9) K/mcL BMP 07/17/17 03:15 Sodium 141 Potassium 3.9 Chloride 108 Carbon Dioxide 28 BUN 10 Creatinine 0.58 Glucose 84 Calcium 9.0 - ABG Interpretation ABG results: PT/INR, D-dimer PT 14.5 Seconds (9.4-12.1) H 07/14/17 19:18 Consult Discharge Plan - Plan Instructions: Chronic Obstructive Pulmonary Disease (DC) Referrals: NONE,PCP [Primary Care Provider] -
--- NOTE | 2017-07-17 11:59 | Anesthesia Evaluation PreOp ---
Date of Encounter: 07/17/17 Time of Encounter: 11:57 - Past History Planned Operation: Colonoscopy Cardiac History: NC, CHF, HTN, Hyperlipidemia, Arrhythmia (A-Fib), Cardiac Stent (stents x 4) Pulmonary History: Smoker (58 years), COPD (home O2 at 2L qhshome O2 2L qhs) [employer] History: Other (chronic back pain) Other Medical History: Renal (left renal artery stent), Diabetes Type II, GERD, Other (anxiety/depression) Anesthesia History: No Prior Anesthetic Complications, Past Anesthesia Alcohol Use: none Drug use: none Medications and Allergies Albuterol Sulfate [Albuterol Inhaler] 2 puff IH Q4H PRN 10/22/16 [History] Aspirin [Lo-Dose Aspirin EC] 81 mg PO DAILY 10/22/16 [History] Furosemide [Lasix] 20 mg PO DAILY 10/22/16 [History] Gabapentin 600 mg PO TID 10/22/16 [History] Isosorbide DInitrate [Isosorbide Dinitrate] 30 mg PO BID 10/22/16 [History] Ranolazine [Ranexa] 500 mg PO BID 30 Days 10/22/16 [Rx] Rivaroxaban [Xarelto] 20 mg PO DAILY 10/22/16 [History] Umeclidinium Brm/Vilanterol Tr [Anoro Ellipta 62.5-25 Mcg INH] 1 puff IH DAILY 10/22/16 [History] Atorvastatin Calcium [Lipitor] 80 mg PO HS 02/16/17 [History] Vortioxetine Hydrobromide [Trintellix] 15 mg PO DAILY 02/16/17 [History] clonazePAM [Klonopin] 0.5 - 1 mg PO TID PRN 02/16/17 [History] Metformin HCl [Glucophage] 1,000 mg PO BID 05/11/17 [History] Metoprolol [Lopressor] 25 mg PO BID 05/11/17 [History] Oxycodone HCl/Acetaminophen [Percocet 5-325 mg Tablet] 1 tab PO Q6H PRN #20 tablet 05/12/17 [Rx] 3 Allergy/AdvReac Type Severity Reaction Status Date / Time No Known Allergies Allergy Verified 07/14/17 17:15 - Meds/Allergy Pre-op Review Medications Reviewed: Yes Allergies Reviewed: Yes Beta Blockers on Current Med List: Yes If Beta Blockers taken, Date/Time (Last Dose taken): 07/17/2017 at 0811 Anesthesia Results - Labs 07/17/17 03:15 07/17/17 03:15 Laboratory Tests 07/14/17 19:18 PT 14.5 H INR 1.3 APTT 33.0 - Imaging EKG: report reviewed (02/16/2017 ATRIAL FIBRILLATION WITH RAPID VENTRICULAR RESPONSE) Additional studies: 08/22/2015 Echo LVEF 60% mild LV diastolic dysfunction mildly enlarged LA no significant valvular dysfunction 08/22/2015 Stress Impression: Perfusion imaging was positive for infarct without ischemia. Pharmacologic ECG was negative for ischemia at the level of heart rate achieved. Patient had no chest pain with stress. Rare PVCs and PACs. Normal hemodynamic response. Gated EF = 69%. The LV is visually dilated. LVEDV 144mL There is no evidence of TID. Anesthesia Exam Vital Signs/O2 Sat/Glucose, Most Recent Temp Pulse Resp BP Pulse Ox 97.8 F 60 16 126/73 93 07/17/17 11:00 07/17/17 11:00 07/17/17 11:00 07/17/17 11:00 07/17/17 11:00 Blood Glucose* 118 Height: 5'7''/1.7 m Weight: 148 lbs/67.32 kg NPO (# of Hours): 8 Pain Scale: 8 (back) Pain Scale Used: Numeric (1 - 10) - HEENT Pupil (Motor): EOMI Mallampati: II Teeth: Poor dentition (loose lower front tooth) Oral Opening: Greater than 3 - [employer] LOC: Oriented [employer] Motor: Normal RUE, Normal LUE, Normal LLE, Normal Face, Deficit RLE [employer] Sensory: Normal: RUE, LUE, Face, Deficit: RLE, LLE - Cardiac Rhythm: Irregular Murmur: None - Pulmonary Breath Sounds: bilateral Clear Respiratory Effort: Symmetrical Anesthesia Assess/Plan ASA Score: 4 Modified [place] Scale for Level of Consciousness: Cooperative, oriented, and tranquil Anesthetic Plan: MAC Monitoring Plan: Standard Monitors
[2017-07-17] MEDS ORDERED: Acetaminophen 325 MG TABLET PO PRN (12:50)
[2017-07-18 04:59] LABS: Basophils % 0.4 %; Eosinophils # 0.2 K/mcL (0.0-0.6); Eosinophils % 2.1 %; Hematocrit 38.2 % (35.3-44.9); Hemoglobin 11.8 g/dL (11.5-15.4); Immature Granulocytes % 0.3 % (0-4); Lymphocytes % 29.1 %; Mean Corpuscular HGB Conc 30.9 g/dL (31.6-35.5); Mean Corpuscular Hemoglobin 26.5 pg (28.0-33.3); Mean Corpuscular Volume 85.7 fL (83.0-100.0); Monocytes # 0.6 K/mcL (0.0-1.3); Monocytes % 8.7 %; Neutrophils # 4.2 K/mcL (1.6-8.9); Platelet Count 117 K/mcL (140-400); Red Blood Count 4.46 M/mcL (3.82-4.97); Red Cell Distribution Width 17.9 % (11.5-14.5); Segmented Neutrophils % 59.4 %
[2017-07-18] MEDS: Furosemide 20 MG TABLET PO SCH (07:28)
[2017-07-18] MEDS: clonazePAM 0.5 MG TABLET PO PRN (07:28)
[2017-07-18] MEDS: Gabapentin 300 MG CAPSULE PO SCH (07:29)
[2017-07-18] MEDS: *HR* OxyCODONE/APAP 5/325 TABLET PO PRN (07:29)
[2017-07-18] MEDS: Insulin LISPRO 300 UNITS/3 ML VIAL SQ SCH ×2 (07:30→11:34)
[2017-07-18] MEDS: Ranolazine 500 MG TAB.ER.12H PO SCH (07:30)
[2017-07-18 10:42] VITALS: BP 133/85
--- NOTE | 2017-07-18 11:44 | Discharge Summary ---
Date of Encounter: 07/18/17 Time of Encounter: 10:00 - Discharge Diagnosis (1) GI bleed Priority: Primary Status: Acute Qualifiers: GI bleed type/associated pathology: anorectal hemorrhage Qualified Code(s) : K62.5 - Hemorrhage of anus and rectum (2) Chronic atrial fibrillation Priority: Secondary Status: Chronic (3) COPD (chronic obstructive pulmonary disease) Priority: Secondary Status: Chronic Qualifiers: COPD type: chronic bronchitis Chronic bronchitis type: simple Qualified Code(s): J41.0 - Simple chronic bronchitis (4) DVT prophylaxis Priority: Secondary Status: Acute (5) HTN (hypertension) Priority: Secondary Status: Chronic Qualifiers: Hypertension type: essential hypertension Qualified Code(s): I10 - Essential (primary) hypertension (6) Hypokalemia Priority: Secondary Status: Resolved - Discharge Medications Prescriptions: Omeprazole [PriLOSEC] 40 mg PO DAILY #30 cap Home Medications: Albuterol Sulfate [Albuterol Inhaler] 2 puff IH Q4H PRN 10/22/16 [History] Aspirin [Lo-Dose Aspirin EC] 81 mg PO DAILY 10/22/16 [History] Furosemide [Lasix] 20 mg PO DAILY 10/22/16 [History] Gabapentin 600 mg PO TID 10/22/16 [History] Isosorbide DInitrate [Isosorbide Dinitrate] 30 mg PO BID 10/22/16 [History] Ranolazine [Ranexa] 500 mg PO BID 30 Days 10/22/16 [Rx] Rivaroxaban [Xarelto] 20 mg PO DAILY 10/22/16 [History] Umeclidinium Brm/Vilanterol Tr [Anoro Ellipta 62.5-25 Mcg INH] 1 puff IH DAILY 10/22/16 [History] Atorvastatin Calcium [Lipitor] 80 mg PO HS 02/16/17 [History] Vortioxetine Hydrobromide [Trintellix] 15 mg PO DAILY 02/16/17 [History] clonazePAM [Klonopin] 0.5 - 1 mg PO TID PRN 02/16/17 [History] Metformin HCl [Glucophage] 1,000 mg PO BID 05/11/17 [History] Metoprolol [Lopressor] 25 mg PO BID 05/11/17 [History] Oxycodone HCl/Acetaminophen [Percocet 5-325 mg Tablet] 1 tab PO Q6H PRN #20 tablet 05/12/17 [Rx] Omeprazole [PriLOSEC] 40 mg PO DAILY #30 cap 07/18/17 [Rx] Allergies/Adverse Reactions: 3 Allergy/AdvReac Type Severity Reaction Status Date / Time No Known Allergies Allergy Verified 07/14/17 17:15 Date of admission: 07/15/17 18:41 Primary care physician: PCP NONE Consults: 07/15/17 08:17 Consult to Surgery [CONS] Routine Consulting Provider: [facility] Reason for Consult: LGIB Call Completed: Yes 07/15/17 13:32 Consult to Gastroenterology [CONS] Routine Consulting Provider: G[facility] Reason for Consult: LGIB Call Completed: Yes Discharging clinician: Tha Bal Anticipated date of discharge: 07/18/17 - Patient Status Disposition: Home, Self-Care Condition: Good Functional capacity at discharge: independent ambulation Overall status at discharge: patient is progressing back to baseline - Discharge Instructions Instructions: Chronic Obstructive Pulmonary Disease (DC) Follow Up With: Yordy Mckinley DO [Resident] - 07/24/17 10:00 am - Diet and Activity Activity: as per physical therapy Diet: low fat, low cholesterol, low salt diet Hospital course: Ms. Costa is a 66 year old female patient with a history of COPD, hypertension, hyperlipidemia who was hospitalized here with acute lower GI bleed. Her hemoglobin levels initially on presentation were 14.5. With IV hydration, this decreased to 11.9. Gastroenterology was consulted and after evaluating the patient and recommended colonoscopy. Patient underwent colonoscopy yesterday and internal hemorrhoids. She was recommended to increase fiber in her diet and use Metamucil and similar substances to help for this. She can follow up on biopsies with gastroenterology after discharge. She has had no further episodes of bleeding here. Patient does take aspirin and exertional 2. Gastroenterology recommends patient resume these medications after 3 days. Patient will be discharged today on omeprazole as she has been complaining of some gastroesophageal reflux disease. Rest of her home medications were continued. - Time Spent with Patient Total time spent providing and/or coordinating discharge services: Less than 30 minutes (25 min) - Constitutional Vitals: Temp Pulse Resp BP Pulse Ox 97.8 F 60 16 133/85 95 07/18/17 10:40 07/18/17 10:40 07/18/17 10:40 07/18/17 10:40 07/18/17 10:40 General appearance: Present: A&O X 3, no acute distress, answers questions appropriately - Respiratory Respiratory exam: Present: CTAB. Absent: accessory muscle use, rales, rhonchi, wheezes - Cardiovascular Cardiovascular exam: Present: RRR, +S1, +S2. Absent: diastolic murmur, gallop, rubs, systolic murmur - GI/Abdominal GI/Abdominal exam: Present: normal bowel sounds, soft, no peritoneal signs. Absent: distended, tenderness - Extremities Exam Extremities exam: Present: warm, radial pulses palpable and symmetrical. Absent : calf tenderness, cyanotic, pedal edema - Neurological Exam Neurological exam: Present: alert, oriented X3, no focal deficits. Absent: facial droop, speech deficit
[2017-07-18 16:05] LABS: BUN/Creatinine Ratio 22 (6-26); Blood Urea Nitrogen 14 mg/dL (7-20); Calcium 9.1 mg/dL (8.6-10.8); Carbon Dioxide 23 mEq/L (19-29); Chloride 111 mEq/L (98-109); Glucose 108 mg/dL (70-99); Magnesium 1.7 mg/dL (1.6-2.6); Osmolality,Calculated 295 (280-300); Phosphorous 4.1 mg/dL (2.3-4.7); Sodium 142 mEq/L (136-145); eGFR For African Americans > 60 (> 60); eGFR For Non-African Americans > 60 (> 60)
== END 2017-07-18 13:09 | disposition home or self-care (01) | DRG 379 ==
LOC: EMEROO 17:03 → 3ANU 17:03 → SUATTDRO 07-15 18:41
PROVIDERS: ADMIT Internal Medicine; ATTEND Internal Medicine

== ENCOUNTER 2017-08-15 13:40 | Observation (INO) ==
[2017-08-15] MEDS ORDERED: Ondansetron 4 MG/2 ML VIAL IM ONE (13:46)
[2017-08-15 14:11] LABS: Basophils % 0.1 %; Eosinophils % 0.3 %; Hematocrit 52.4 % (35.3-44.9); Hemoglobin 16.1 g/dL (11.5-15.4); Immature Granulocytes % 0.4 % (0-4); Lymphocytes # 0.8 K/mcL (0.6-4.6); Lymphocytes % 8.7 %; Mean Corpuscular HGB Conc 30.7 g/dL (31.6-35.5); Mean Corpuscular Hemoglobin 25.6 pg (28.0-33.3); Mean Corpuscular Volume 83.3 fL (83.0-100.0); Mean Platelet Volume 9.2 fL (9.4-12.4); Monocytes # 0.4 K/mcL (0.0-1.3); Monocytes % 3.8 %; Neutrophils # 8.1 K/mcL (1.6-8.9); Platelet Count 297 K/mcL (140-400); Red Blood Count 6.29 M/mcL (3.82-4.97); Red Cell Distribution Width 18.9 % (11.5-14.5); Segmented Neutrophils % 86.7 %
[2017-08-15] MEDS ORDERED: Sucralfate 1 GM TABLET PO STA (14:16)
[2017-08-15] MEDS ORDERED: Pantoprazole 40 MG VIAL IVP ONE (14:16)
[2017-08-15 14:17] LABS: INR 1.4; Prothrombin Time 15.2 Seconds (9.4-12.1)
[2017-08-15 14:19] LABS: Activated Partial Thrombo Time 34.1 Seconds (26.0-36.0)
[2017-08-15] MEDS ORDERED: 0.9 % Sodium Chloride 1,000 ML IVC ONE (14:24)
[2017-08-15 14:26] LABS: BUN/Creatinine Ratio 13 (6-26); Bilirubin,Total 1.1 mg/dL (0.2-1.2); Blood Urea Nitrogen 10 mg/dL (7-20); Calcium 10.2 mg/dL (8.6-10.8); Carbon Dioxide 23 mEq/L (19-29); Chloride 99 mEq/L (98-109); Glucose 176 mg/dL (70-99); Osmolality,Calculated 293 (280-300); Potassium 3.6 mEq/L (3.5-4.5); Sodium 140 mEq/L (136-145); eGFR For African Americans > 60 (> 60); eGFR For Non-African Americans > 60 (> 60)
[2017-08-15 14:27] LABS: Alanine Aminotransferase 9 Units/L (0-55); Albumin 4.3 g/dL (3.5-5.0); Alkaline Phosphatase 79 Units/L (38-126); Aspartate Amino Transferase 16 Units/L (5-34); Bilirubin,Direct 0.5 mg/dL (0.0-0.5); Bilirubin,Indirect 0.6 mg/dL (0.0-1.2); Globulin 4.4 g/dL (2.4-3.5); Lipase < 10 Units/L (8-78); Total Protein 8.7 g/dL (6.0-8.3)
--- NOTE | 2017-08-15 14:36 | Emergency Department Note ---
Disposition Clinical Impression: Colitis Disposition: Admitted As Inpatient Condition: Good Referrals: NONE,PCP [Non-Partnered Physician] - Forms: ED Satisfaction Letter, Work/School Release Time of Disposition: 17:08 Abdominal Pain HPI - General Chief Complaint: ED Abdominal Pain Stated Complaint: N/V Weakness Time Seen by Provider: 08/15/17 13:45 Source: patient, EMS Mode of arrival: ambulatory Limitations: no limitations Nursing Notes Reviewed: Yes Vital Signs Reviewed: Yes - History of Present Illness HPI Narrative: 66 year old female who was most recenlty admitted to the hospital for lower GI bleed and had seen Dr Torrez while she was admitted. APtient states that for the past three weeks since her admission she has had intractable vomitting and her epigastric pain has increased over the last 3 weeks. She has a history of upper epigastric pain and is scheduled to have an upper endoscopy next month. she is currenty on zofran, carafate and bentyl at home which has been givng her minmal relief. She states taht she ran out of her zofran and her vomtiting is gettgin worse. Patient denies fevers, chest pain, shortness of breath, or heamturia/ bloody stools or UTIs. PAtine states that she feels increasinlgly fatigue, dry and weak. Abdominla pain is cramp like nature and states tht she is a long time smoker. Pain Scale: 9 - Related Data Home Medications Medication Instructions Recorded Confirmed Albuterol Sulfate [Albuterol 2 puff IH Q4H PRN 10/22/16 08/15/17 Inhaler] Aspirin [Lo-Dose Aspirin EC] 81 mg PO DAILY 10/22/16 08/15/17 Furosemide [Lasix] 20 mg PO DAILY 10/22/16 08/15/17 Gabapentin 600 mg PO TID 10/22/16 08/15/17 Isosorbide DInitrate [Isosorbide 30 mg PO BID 10/22/16 08/15/17 Dinitrate] Rivaroxaban [Xarelto] 20 mg PO DAILY 10/22/16 08/15/17 Umeclidinium Brm/Vilanterol Tr 1 puff IH DAILY 10/22/16 08/15/17 [Anoro Ellipta 62.5-25 Mcg INH] Atorvastatin Calcium [Lipitor] 80 mg PO HS 02/16/17 08/15/17 clonazePAM [Klonopin] 1 mg PO TID PRN 02/16/17 08/15/17 Metformin HCl [Glucophage] 1,000 mg PO BID 05/11/17 08/15/17 Metoprolol [Lopressor] 25 mg PO BID 05/11/17 08/15/17 Lipase/Protease/Amylase [Celeste Healy 1 each PO AD 08/15/17 08/15/17 12,000 Units Capsule] Lipase/Protease/Amylase [Celeste Healy 2 each PO TIDWM 08/15/17 08/15/17 12,000 Units Capsule] Vortioxetine Hydrobromide 20 mg PO DAILY 08/15/17 08/15/17 [Trintellix] Previous Rx's Medication Instructions Recorded Ranolazine [Ranexa] 500 mg PO BID 30 Days 10/22/16 Omeprazole [PriLOSEC] 40 mg PO DAILY #30 cap 07/18/17 Allergies Allergy/AdvReac Type Severity Reaction Status Date / Time No Known Allergies Allergy Verified 07/14/17 17:15 Constitutional: Denies: fever, chills, weakness, weight change Eyes: Denies: eye pain, eye discharge, vision change ENT ED: Denies: ear pain, throat pain, dental pain, hearing loss, epistaxis, congestion, dysphagia Cardiovascular: Denies: chest pain, palpitations, dyspnea on exertion, edema, syncope Respiratory: Denies: cough, dyspnea, wheezes, hemoptysis, stridor Gastrointestinal: Reports: abdominal pain, nausea, vomiting. Denies: diarrhea, constipation, hematemesis, melena, hematochezia Genitourinary: Denies: dysuria, frequency, hematuria, discharge Musculoskeletal: Denies: back pain, neck pain, arthralgia, myalgia Integumentary: Denies: rash, abrasion, lesions Neurological: Denies: headache, weakness, numbness, paresthesias, confusion, abnormal gait, vertigo Psychiatric: Denies: anxiety, depression, suicidal thoughts, homicidal thoughts , auditory hallucinations, visual hallucinations Endocrine: Denies: fatigue Hematological/Lymphatic: Denies: easy bleeding, easy bruising Allergic/Immunologic: Denies: facial swelling, urticaria Abdominal Pain PMH - Past Medical History Medical history: Reports: arthritis, CHF, COPD, coronary artery disease, DVT, hyperlipidemia, hypertension, myocardial infarction, peripheral artery disease, other Female Surgical History: Reports: angioplasty/stent, cholecystectomy, hysterectomy, orthopedic, other, other Psychiatric history: Reports: anxiety, depression - Social History Smoking status: Current every day smoker Alcohol use: Reports: none Drug use: Reports: none Physical Exam - General Limitations: no limitations General appearance: alert, in no apparent distress, cachectic - Head Head exam: atraumatic, normocephalic, normal inspection - Eye Eye exam: Present: normal appearance, PERRL, EOMI - Expanded Eye Exam Pupils: Left: reactive - ENT ENT exam: normal exam, normal oropharynx, mucous membranes dry - Expanded ENT Exam External ear exam: Present: normal external inspection Mouth exam: Present: normal external inspection Teeth exam: Present: normal inspection Throat exam: Present: normal inspection - Neck Neck exam: Present: normal inspection, full ROM, trachea midline - Chest Chest inspection: Present: normal inspection, symmetric chest wall rise - Respiratory Respiratory exam: Present: normal lung sounds bilaterally - Cardiovascular Cardiovascular exam: Present: normal rhythm, tachycardia, normal heart sounds - Abdominal Exam Abdominal exam: Present: soft, tenderness, normal bowel sounds. Absent: Non- Tender, distention, guarding, rebound, rigidity, Sorensen's sign, Rovsing's sign, tenderness at McBurney's Point Abdominal tenderness: Present: epigastrium, diffuse - Extremities Exam Extremities exam: Present: normal inspection, full ROM. Absent: tenderness, pedal edema - Expanded Upper Extremity Exam Shoulder exam: Present: normal inspection, full ROM Arm exam: Present: normal inspection, full ROM Elbow exam: Present: normal inspection, full ROM Forearm/Wrist exam: Present: normal inspection, full ROM Hand exam: Present: normal inspection, full ROM Vascular exam: Normal: capillary refill, radial pulse - Expanded Lower Extremity Exam Hip/Pelvis exam: Present: normal inspection, full ROM Upper leg exam: Present: normal inspection, full ROM Knee exam: Present: normal inspection, full ROM Lower leg exam: Present: normal inspection, full ROM Ankle exam: Present: normal inspection, full ROM Foot/toe exam: Present: normal inspection, full ROM Neurovascular/Tendon exam: Absent: motor deficit, sensory deficit, tendon deficit - Back Exam Back exam: Present: normal inspection, full ROM. Absent: tenderness - Neurological Exam Neurological exam: Present: alert, oriented X3 - Expanded Neurological Exam Patient oriented to: Present: person, place, time Coma Scale Eye Opening: Spontaneous Coma Scale Motor Response: Obeys Commands Coma Scale Verbal Response: Oriented Coma Scale Total: 15 - Psychiatric Psychiatric exam: Present: normal affect, normal mood - Skin Skin exam: Present: warm, dry, intact, normal color Course Course Narrative: we will do ABCT wiht IV contrast and abdominla labs. IVF hydration and rule out infection - Consultations Consultation #1: discussed case with Sang and he accepts patient for admission to his service. Ronnie is agreeable to admision. Time: 17:07 Vital Signs Temperature 97.5 F L 08/15/17 13:45 Pulse Rate 125 08/15/17 13:45 Respiratory Rate 16 08/15/17 13:45 Blood Pressure 181/93 08/15/17 13:45 O2 Sat by Pulse Oximetry 96 08/15/17 13:45 Temperature 97.5 F L 08/15/17 13:45 Pulse Rate 83 08/15/17 15:50 Respiratory Rate 19 08/15/17 15:50 Blood Pressure 135/109 08/15/17 15:50 O2 Sat by Pulse Oximetry 93 08/15/17 15:50 Oxygen Delivery Oxygen Delivery Room Air Abdominal Pain - Lab Data Lab results reviewed: Yes I reviewed the patient's lab results. Result diagrams: 08/15/17 14:03 08/15/17 14:03 Lab Results 08/15/17 08/15/17 08/15/17 Range/Units 14:03 14:03 14:03 WBC 9.3 (4.3-11.1) K/mcL RBC 6.29 H (3.82-4.97) M/mcL Hgb 16.1 H (11.5-15.4) g/dL Hct 52.4 H (35.3-44.9) % MCV 83.3 (83.0-100.0) fL MCH 25.6 L (28.0-33.3) pg MCHC 30.7 L (31.6-35.5) g/dL RDW 18.9 H (11.5-14.5) % Plt Count 297 (140-400) K/mcL MPV 9.2 L (9.4-12.4) fL Immature Gran % 0.4 (0-4) % Seg Neutrophils % 86.7 % Lymphocytes % 8.7 % Monocytes % 3.8 % Eosinophils % 0.3 % Basophils % 0.1 % Neutrophils # 8.1 (1.6-8.9) K/mcL Lymphocytes # 0.8 (0.6-4.6) K/mcL Monocytes # 0.4 (0.0-1.3) K/mcL Eosinophils # 0.0 (0.0-0.6) K/mcL Basophils # 0.0 (0.0-0.2) K/mcL PT 15.2 H (9.4-12.1) Seconds INR 1.4 APTT 34.1 (26.0-36.0) Seconds Sodium 140 (136-145) mEq/L Potassium 3.6 (3.5-4.5) mEq/L Chloride 99 (98-109) mEq/L Carbon Dioxide 23 (19-29) mEq/L BUN 10 (7-20) mg/dL Creatinine 0.78 (0.57-1.11) mg/dL Est GFR ( Amer) > 60 (> 60) Est GFR (Non-Af Amer) > 60 (> 60) BUN/Creatinine Ratio 13 (6-26) Glucose 176 H (70-99) mg/dL Calculated Osmolality 293 (280-300) Lactic Acid (0.5-2.2) mmol/L Calcium 10.2 (8.6-10.8) mg/dL Total Bilirubin 1.1 (0.2-1.2) mg/dL Direct Bilirubin 0.5 (0.0-0.5) mg/dL Indirect Bilirubin 0.6 (0.0-1.2) mg/dL AST 16 (5-34) Units/L ALT 9 (0-55) Units/L Alkaline Phosphatase 79 (38-126) Units/L Troponin I (0-0.03) ng/mL Serum Total Protein 8.7 H (6.0-8.3) g/dL Albumin 4.3 (3.5-5.0) g/dL Globulin 4.4 H (2.4-3.5) g/dL Albumin/Globulin Ratio 1.0 L (1.1-2.2) Lipase < 10 (8-78) Units/L Urine Color (Yellow) Urine Clarity (Clear) Urine pH (5.0-8.0) pH Units Ur Specific [place] (1.010-1.025) Urine Protein (Neg-Trace) mg/dL Urine Glucose (UA) (Normal) mg/dL Urine Ketones (Negative) mg/dL Urine Blood (Negative) Urine Nitrite (Negative) Urine Bilirubin (Negative) Urine Urobilinogen (Normal) mg/dL Ur Leukocyte Esterase (Negative) Urine Microscopic RBC (0-3) per hpf Urine Microscopic WBC (0-3) per hpf Ur Squamous Epith Cells (None-Few) per lpf Urine Bacteria (None-Few) per hpf Hyaline Casts (None-Few) per lpf Ur Culture Indicated? (NO) 08/15/17 08/15/17 08/15/17 Range/Units 14:03 14:03 15:55 WBC (4.3-11.1) K/mcL RBC (3.82-4.97) M/mcL Hgb (11.5-15.4) g/dL Hct (35.3-44.9) % MCV (83.0-100.0) fL MCH (28.0-33.3) pg MCHC (31.6-35.5) g/dL RDW (11.5-14.5) % Plt Count (140-400) K/mcL MPV (9.4-12.4) fL Immature Gran % (0-4) % Seg Neutrophils % % Lymphocytes % % Monocytes % % Eosinophils % % Basophils % % Neutrophils # (1.6-8.9) K/mcL Lymphocytes # (0.6-4.6) K/mcL Monocytes # (0.0-1.3) K/mcL Eosinophils # (0.0-0.6) K/mcL Basophils # (0.0-0.2) K/mcL PT (9.4-12.1) Seconds INR APTT (26.0-36.0) Seconds Sodium (136-145) mEq/L Potassium (3.5-4.5) mEq/L Chloride (98-109) mEq/L Carbon Dioxide (19-29) mEq/L BUN (7-20) mg/dL Creatinine (0.57-1.11) mg/dL Est GFR ( Amer) (> 60) Est GFR (Non-Af Amer) (> 60) BUN/Creatinine Ratio (6-26) Glucose (70-99) mg/dL Calculated Osmolality (280-300) Lactic Acid 3.5 H (0.5-2.2) mmol/L Calcium (8.6-10.8) mg/dL Total Bilirubin (0.2-1.2) mg/dL Direct Bilirubin (0.0-0.5) mg/dL Indirect Bilirubin (0.0-1.2) mg/dL AST (5-34) Units/L ALT (0-55) Units/L Alkaline Phosphatase (38-126) Units/L Troponin I 0.02 (0-0.03) ng/mL Serum Total Protein (6.0-8.3) g/dL Albumin (3.5-5.0) g/dL Globulin (2.4-3.5) g/dL Albumin/Globulin Ratio (1.1-2.2) Lipase (8-78) Units/L Urine Color Yellow (Yellow) Urine Clarity Clear (Clear) Urine pH 7.0 (5.0-8.0) pH Units Ur Specific [place] 1.030 H (1.010-1.025) Urine Protein >=1000 H (Neg-Trace) mg/dL Urine Glucose (UA) 100 H (Normal) mg/dL Urine Ketones 80 H (Negative) mg/dL Urine Blood Trace H (Negative) Urine Nitrite Negative (Negative) Urine Bilirubin Negative (Negative) Urine Urobilinogen Normal (Normal) mg/dL Ur Leukocyte Esterase Negative (Negative) Urine Microscopic RBC 5-15 H (0-3) per hpf Urine Microscopic WBC 3-5 H (0-3) per hpf Ur Squamous Epith Cells Many H (None-Few) per lpf Urine Bacteria None Seen (None-Few) per hpf Hyaline Casts None Seen (None-Few) per lpf Ur Culture Indicated? NO (NO) - Radiology Data Radiology results reviewed: Yes I reviewed the patient's radiology results. - EKG Data EKG attestation: Yes I reviewed and interpreted this EKG. EKG results narrative: atrial fibrillation wiht rate of 105. NO STEMI. no change from 02/16/17 (HX of atril fib). 1450
[2017-08-15 16:07] LABS: Bilirubin,Urine Negative (Negative); Blood,Urine Trace (Negative); Clarity,Urine Clear (Clear); Color,Urine Yellow (Yellow); Glucose,Urine (UA) 100 mg/dL (Normal); Ketones,Urine 80 mg/dL (Negative); Leukocyte Esterase,Urine Negative (Negative); Nitrite,Urine Negative (Negative); Protein,Urine >=1000 mg/dL (Neg-Trace); Urobilinogen,Urine Normal (Normal)
[2017-08-15 16:15] LABS: Bacteria,Urine None Seen per hpf (None-Few); Hyaline Casts,Urine None Seen per lpf (None-Few); Squamous Epithelial Cell,Urine Many per lpf (None-Few)
[2017-08-15] MEDS ORDERED: MetroNIDAZOLE 500 MG/100 ML 500 MG/100 ML BAG IVPB ONE (16:22)
[2017-08-15] MEDS ORDERED: Ondansetron 4 MG/2 ML VIAL IVP ONE (16:36)
[2017-08-15] MEDS ORDERED: Ondansetron 4 MG/2 ML VIAL IVP PRN (18:17)
[2017-08-15] MEDS ORDERED: Acetaminophen 325 MG TABLET PO PRN (18:17)
[2017-08-15] MEDS ORDERED: Naloxone 0.4 MG/ML INJ IVP PRN (18:17)
[2017-08-15] MEDS ORDERED: 0.9 % Sodium Chloride 1,000 ML IVC SCH (18:30)
--- NOTE | 2017-08-15 19:09 | Internal Med History&Physical ---
<Salome Carnes - Last Filed: 08/15/17 19:33> Date of Encounter: 08/15/17 Time of Encounter: 18:59 Assessment and Plan (1) Colitis Current visit: Yes Status: Acute Patient reports nausea, vomiting, abdominal pain, and diarrhea, worsening since last admission. CT abd/pelvis showed diffuse colonic wall thickening consistent with colitis. lactate elevated at 3.2. Recheck lactate Q4 hr until it normalizes Protonix IVP, carafate Flagyl and cipro IVPB GI panel c.diff PCR Clear liquid diet IV fluids - given 1L bolus, give 1 more liter at 100mL/hr. Consult to Gastroenterology. (2) Congestive heart failure Current visit: Yes Status: Acute Patient with history of diastolic CHF. Last echo was in 2014 and showed EF of 60% with mild diastolic dysfunction. Patient is dehydrated due to nausea, vomiting, diarrhea and poor oral intake. Will hold lasix and give IV fluids gently with 1 more liter at 100mL/hr. Repeat echocardiogram. Qualifiers: Congestive heart failure type: diastolic Congestive heart failure chronicity: chronic Qualified Code(s): I50.32 - Chronic diastolic (congestive ) heart failure (3) COPD (chronic obstructive pulmonary disease) Current visit: Yes Status: Chronic Patient with COPD, wears O2 PRN at home. Patient with diffuse wheezing on exam. She denies any increased shortness of breath or cough. Will give duonebs and continue home medications. Qualifiers: COPD type: chronic bronchitis Chronic bronchitis type: simple Qualified Code(s): J41.0 - Simple chronic bronchitis (4) Abdominal pain Current visit: Yes Status: Chronic Patient reports abdominal pain midline and bilateral lower quadrants. Likely secondary to colitis seen on CT. [place] and morphine PRN for abdominal pain. Qualifiers: Abdominal location: generalized Qualified Code(s): R10.84 - Generalized abdominal pain (5) Nausea vomiting and diarrhea Current visit: Yes Status: Acute secondary to colitis. Zofran PRN for nausea. [place] and morphine prn for abdominal pain IV fluids 0.09NS at 100mL/hr clear liquid diet. (6) Tobacco abuse Current visit: Yes Status: Chronic Patient continues to smoke despite COPD and vascular disease. Discussed and encouraged smoking cessation. Nicotine patch and smoking cessation education ordered. (7) Type 2 diabetes mellitus Current visit: Yes Status: Acute Hold metformin. check blood sugars q6hr as patient has poor appetite sliding scale correction dose Q6hr hypoglycemic protocol. Qualifiers: Diabetes mellitus complication status: without complication Diabetes mellitus manager terminal insulin use: without manager terminal use Qualified Code(s): E11.9 - Type 2 diabetes mellitus without complications (8) DVT prophylaxis Current visit: Yes Status: Acute anti-embolic stockings Patient on xarelto for history of afib and dvt, additional pharmacologic prophylaxis not warranted. Internal Medicine - H&P: HPI Chief complaint: Nausea and vomiting Admitted From: Emergency Dept Plans for Post Hospital Care: Home History of present illness: Ms. Costa is a 66 year old female with hypertension, hyperlipidemia, CHF, COPD, coronary artery disease, peripheral vascular disease, and diabetes presented to the ED with nausea, vomiting, diarrhea and abdominal pain. She reports she has been having these symptoms since her discharge 07/18. She reports her diarrhea and abdominal pain have been worsening over the last several weeks and she has trouble keeping anything down, including medications. Her vomiting is bilious without reports of blood. She denies any black or bloody stool with her diarrhea. She reports mild headache. She denies any chest pain, palpitations or increased shortness of breath. Evaluation in the ED included CT which showed diffuse colonic wall thickening consistent with colitis. Lactate was elevated to 3.2. WBC count was normal at 9.3. Hgb/HCT were elevated consistent with dehydration, though BUN and creatinine were normal. On exam, she was alert and oriented, in no acute distress. Heart has regular rate and rhythm, lungs with diffuse wheezing. Abdomen soft with positive bowel sounds and diffuse tenderness. no peripheral edema. Past Med Surg Social Fam HX - Past Medical History Medical history: arthritis, atrial fibrillation, CHF, COPD, coronary artery disease, DVT, hyperlipidemia, hypertension, myocardial infarction, peripheral artery disease, other Psychiatric history: anxiety, depression - Past Surgical History Surgical History: angioplasty/stent, cholecystectomy, hysterectomy, knee replacement, other, vascular surgery, LE bypass - Social History Smoking Status: Current every day smoker Smokeless Tobacco Status: No Alcohol use: none Drug use: none - Family History Mother Adopted: No Living Status: Hx Family Cardiac Disorders: Yes Hx Family Respiratory Disorders: Yes Hx Family Cancer: No Hx Family GI Disorders: No Hx Family Endocrine Disorder: Yes Hx Family Neuromuscular Disorders: No Hx Family Neurologic Disorders: No Hx Family HEENT Disorders: No Hx Family Autoimmune Disorders: No Father Adopted: No Living Status: Hx Family Cardiac Disorders: Yes Hx Family Cancer: Yes (Prostate) Hx Family Endocrine Disorder: Yes (DM) Internal Medicine - H&P: Meds Albuterol Sulfate [Albuterol Inhaler] 2 puff IH Q4H PRN 10/22/16 [History] Aspirin [Lo-Dose Aspirin EC] 81 mg PO DAILY 10/22/16 [History] Furosemide [Lasix] 20 mg PO DAILY 10/22/16 [History] Gabapentin 600 mg PO TID 10/22/16 [History] Isosorbide DInitrate [Isosorbide Dinitrate] 30 mg PO BID 10/22/16 [History] Ranolazine [Ranexa] 500 mg PO BID 30 Days 10/22/16 [Rx] Rivaroxaban [Xarelto] 20 mg PO DAILY 10/22/16 [History] Umeclidinium Brm/Vilanterol Tr [Anoro Ellipta 62.5-25 Mcg INH] 1 puff IH DAILY 10/22/16 [History] Atorvastatin Calcium [Lipitor] 80 mg PO HS 02/16/17 [History] clonazePAM [Klonopin] 1 mg PO TID PRN 02/16/17 [History] Metformin HCl [Glucophage] 1,000 mg PO BID 05/11/17 [History] Metoprolol [Lopressor] 25 mg PO BID 05/11/17 [History] Omeprazole [PriLOSEC] 40 mg PO DAILY #30 cap 07/18/17 [Rx] Lipase/Protease/Amylase [Celeste Dr 12,000 Units Capsule] 1 each PO AD 08/15/17 [ History] Lipase/Protease/Amylase [Creon Dr 12,000 Units Capsule] 2 each PO TIDWM [History] Vortioxetine Hydrobromide [Trintellix] 20 mg PO DAILY 08/15/17 [History] 3 Allergy/AdvReac Type Severity Reaction Status Date / Time No Known Allergies Allergy Verified 07/14/17 17:15 All Systems PM: A 10-system review of systems was performed and is negative for pertinent findings except as documented above in the HPI. - Constitutional Constitutional: anorexia, no chills, no fever(s), no night sweats - EENT Eyes: no change in vision, no discharge, no pain, no photophobia Ears: no ear discharge, no ear pain, no tinnitus Nose, mouth and throat: no dysphagia, no nasal discharge, no neck pain, no sore throat - Cardiovascular Cardiovascular ROS IM: no chest pain, no diaphoresis, no dyspnea, no lightheadedness, no palpitations, no syncope - Respiratory Respiratory: wheezing, no cough, no dyspnea, no excessive phlegm production - Gastrointestinal Gastrointestinal: abdominal pain, diarrhea, nausea, vomiting, no hematemesis, no hematochezia, no melena - Genitourinary Genitourinary: no change in urinary stream, no dysuria, no flank pain, no hematuria - Musculoskeletal Musculoskeletal ROS IM: no numbness, no tingling - Integumentary Integumentary IM: no rash, no unusual bruising - Neurological Neurological ROS: no confusion, no convulsions, no focal weakness, no numbness, no tingling, no tremor(s) - Hematologic/Lymphatic Hematologic/Lymphatic: no easy bruising - Constitutional Vitals: Temp Pulse Resp BP Pulse Ox 97.5 F L 88 21 149/99 94 08/15/17 13:45 08/15/17 17:23 08/15/17 18:17 08/15/17 18:17 08/15/17 17:23 General appearance: Present: A&O X 3, pleasant, no acute distress - Head Head exam: Present: atraumatic, normocephalic - Eye Eye exam: Present: PERRL, conjuntiva pink, sclera anicteric Pupils: Present: PERRL - Neck Neck exam general surgery: Present: supple, trachea midline. Absent: lymphadenopathy - Respiratory Respiratory exam: Present: wheezes. Absent: accessory muscle use, rales, rhonchi - Cardiovascular Cardiovascular exam: Present: RRR, +S1, +S2. Absent: diastolic murmur, gallop, rubs, systolic murmur - GI/Abdominal GI/Abdominal exam: Present: normal bowel sounds, soft, tenderness (diffuse), no peritoneal signs. Absent: distended - Extremities Exam Extremities exam: Present: warm, radial pulses palpable and symmetrical. Absent : calf tenderness, cyanotic, pedal edema - Neurological Exam Neurological exam: Present: CN II-XII intact, oriented X3, no focal deficits. Absent: pronater drift, facial droop, speech deficit - Skin Skin exam: Present: dry, intact Internal Med - H&P Results - Labs CBC & Chem 7: 08/15/17 14:03 08/15/17 14:03 Labs: All Lab Results (24 Hours) 08/15/17 08/15/17 08/15/17 Range/Units 14:03 14:03 14:03 WBC 9.3 (4.3-11.1) K/mcL RBC 6.29 H (3.82-4.97) M/mcL Hgb 16.1 H (11.5-15.4) g/dL Hct 52.4 H (35.3-44.9) % MCV 83.3 (83.0-100.0) fL MCH 25.6 L (28.0-33.3) pg MCHC 30.7 L (31.6-35.5) g/dL RDW 18.9 H (11.5-14.5) % Plt Count 297 (140-400) K/mcL MPV 9.2 L (9.4-12.4) fL Immature Gran % 0.4 (0-4) % Seg Neutrophils % 86.7 % Lymphocytes % 8.7 % Monocytes % 3.8 % Eosinophils % 0.3 % Basophils % 0.1 % Neutrophils # 8.1 (1.6-8.9) K/mcL Lymphocytes # 0.8 (0.6-4.6) K/mcL Monocytes # 0.4 (0.0-1.3) K/mcL Eosinophils # 0.0 (0.0-0.6) K/mcL Basophils # 0.0 (0.0-0.2) K/mcL PT 15.2 H (9.4-12.1) Seconds INR 1.4 APTT 34.1 (26.0-36.0) Seconds Sodium 140 (136-145) mEq/L Potassium 3.6 (3.5-4.5) mEq/L Chloride 99 (98-109) mEq/L Carbon Dioxide 23 (19-29) mEq/L BUN 10 (7-20) mg/dL Creatinine 0.78 (0.57-1.11) mg/dL Est GFR ( Amer) > 60 (> 60) Est GFR (Non-Af Amer) > 60 (> 60) BUN/Creatinine Ratio 13 (6-26) Glucose 176 H (70-99) mg/dL POC Glucose (58-89) Calculated Osmolality 293 (280-300) Lactic Acid (0.5-2.2) mmol/L Calcium 10.2 (8.6-10.8) mg/dL Total Bilirubin 1.1 (0.2-1.2) mg/dL Direct Bilirubin 0.5 (0.0-0.5) mg/dL Indirect Bilirubin 0.6 (0.0-1.2) mg/dL AST 16 (5-34) Units/L ALT 9 (0-55) Units/L Alkaline Phosphatase 79 (38-126) Units/L Troponin I (0-0.03) ng/mL Serum Total Protein 8.7 H (6.0-8.3) g/dL Albumin 4.3 (3.5-5.0) g/dL Globulin 4.4 H (2.4-3.5) g/dL Albumin/Globulin Ratio 1.0 L (1.1-2.2) Lipase < 10 (8-78) Units/L Urine Color (Yellow) Urine Clarity (Clear) Urine pH (5.0-8.0) pH Units Ur Specific [place] (1.010-1.025) Urine Protein (Neg-Trace) mg/dL Urine Glucose (UA) (Normal) mg/dL Urine Ketones (Negative) mg/dL Urine Blood (Negative) Urine Nitrite (Negative) Urine Bilirubin (Negative) Urine Urobilinogen (Normal) mg/dL Ur Leukocyte Esterase (Negative) Urine Microscopic RBC (0-3) per hpf Urine Microscopic WBC (0-3) per hpf Ur Squamous Epith Cells (None-Few) per lpf Urine Bacteria (None-Few) per hpf Hyaline Casts (None-Few) per lpf Ur Culture Indicated? (NO) 08/15/17 08/15/17 08/15/17 Range/Units 14:03 14:03 15:55 WBC (4.3-11.1) K/mcL RBC (3.82-4.97) M/mcL Hgb (11.5-15.4) g/dL Hct (35.3-44.9) % MCV (83.0-100.0) fL MCH (28.0-33.3) pg MCHC (31.6-35.5) g/dL RDW (11.5-14.5) % Plt Count (140-400) K/mcL MPV (9.4-12.4) fL Immature Gran % (0-4) % Seg Neutrophils % % Lymphocytes % % Monocytes % % Eosinophils % % Basophils % % Neutrophils # (1.6-8.9) K/mcL Lymphocytes # (0.6-4.6) K/mcL Monocytes # (0.0-1.3) K/mcL Eosinophils # (0.0-0.6) K/mcL Basophils # (0.0-0.2) K/mcL PT (9.4-12.1) Seconds INR APTT (26.0-36.0) Seconds Sodium (136-145) mEq/L Potassium (3.5-4.5) mEq/L Chloride (98-109) mEq/L Carbon Dioxide (19-29) mEq/L BUN (7-20) mg/dL Creatinine (0.57-1.11) mg/dL Est GFR ( Amer) (> 60) Est GFR (Non-Af Amer) (> 60) BUN/Creatinine Ratio (6-26) Glucose (70-99) mg/dL POC Glucose (58-89) Calculated Osmolality (280-300) Lactic Acid 3.5 H (0.5-2.2) mmol/L Calcium (8.6-10.8) mg/dL Total Bilirubin (0.2-1.2) mg/dL Direct Bilirubin (0.0-0.5) mg/dL Indirect Bilirubin (0.0-1.2) mg/dL AST (5-34) Units/L ALT (0-55) Units/L Alkaline Phosphatase (38-126) Units/L Troponin I 0.02 (0-0.03) ng/mL Serum Total Protein (6.0-8.3) g/dL Albumin (3.5-5.0) g/dL Globulin (2.4-3.5) g/dL Albumin/Globulin Ratio (1.1-2.2) Lipase (8-78) Units/L Urine Color Yellow (Yellow) Urine Clarity Clear (Clear) Urine pH 7.0 (5.0-8.0) pH Units Ur Specific [place] 1.030 H (1.010-1.025) Urine Protein >=1000 H (Neg-Trace) mg/dL Urine Glucose (UA) 100 H (Normal) mg/dL Urine Ketones 80 H (Negative) mg/dL Urine Blood Trace H (Negative) Urine Nitrite Negative (Negative) Urine Bilirubin Negative (Negative) Urine Urobilinogen Normal (Normal) mg/dL Ur Leukocyte Esterase Negative (Negative) Urine Microscopic RBC 5-15 H (0-3) per hpf Urine Microscopic WBC 3-5 H (0-3) per hpf Ur Squamous Epith Cells Many H (None-Few) per lpf Urine Bacteria None Seen (None-Few) per hpf Hyaline Casts None Seen (None-Few) per lpf Ur Culture Indicated? NO (NO) 08/15/17 Range/Units 19:18 WBC (4.3-11.1) K/mcL RBC (3.82-4.97) M/mcL Hgb (11.5-15.4) g/dL Hct (35.3-44.9) % MCV (83.0-100.0) fL MCH (28.0-33.3) pg MCHC (31.6-35.5) g/dL RDW (11.5-14.5) % Plt Count (140-400) K/mcL MPV (9.4-12.4) fL Immature Gran % (0-4) % Seg Neutrophils % % Lymphocytes % % Monocytes % % Eosinophils % % Basophils % % Neutrophils # (1.6-8.9) K/mcL Lymphocytes # (0.6-4.6) K/mcL Monocytes # (0.0-1.3) K/mcL Eosinophils # (0.0-0.6) K/mcL Basophils # (0.0-0.2) K/mcL PT (9.4-12.1) Seconds INR APTT (26.0-36.0) Seconds Sodium (136-145) mEq/L Potassium (3.5-4.5) mEq/L Chloride (98-109) mEq/L Carbon Dioxide (19-29) mEq/L BUN (7-20) mg/dL Creatinine (0.57-1.11) mg/dL Est GFR ( Amer) (> 60) Est GFR (Non-Af Amer) (> 60) BUN/Creatinine Ratio (6-26) Glucose (70-99) mg/dL POC Glucose 138 H (58-89) Calculated Osmolality (280-300) Lactic Acid (0.5-2.2) mmol/L Calcium (8.6-10.8) mg/dL Total Bilirubin (0.2-1.2) mg/dL Direct Bilirubin (0.0-0.5) mg/dL Indirect Bilirubin (0.0-1.2) mg/dL AST (5-34) Units/L ALT (0-55) Units/L Alkaline Phosphatase (38-126) Units/L Troponin I (0-0.03) ng/mL Serum Total Protein (6.0-8.3) g/dL Albumin (3.5-5.0) g/dL Globulin (2.4-3.5) g/dL Albumin/Globulin Ratio (1.1-2.2) Lipase (8-78) Units/L Urine Color (Yellow) Urine Clarity (Clear) Urine pH (5.0-8.0) pH Units Ur Specific [place] (1.010-1.025) Urine Protein (Neg-Trace) mg/dL Urine Glucose (UA) (Normal) mg/dL Urine Ketones (Negative) mg/dL Urine Blood (Negative) Urine Nitrite (Negative) Urine Bilirubin (Negative) Urine Urobilinogen (Normal) mg/dL Ur Leukocyte Esterase (Negative) Urine Microscopic RBC (0-3) per hpf Urine Microscopic WBC (0-3) per hpf Ur Squamous Epith Cells (None-Few) per lpf Urine Bacteria (None-Few) per hpf Hyaline Casts (None-Few) per lpf Ur Culture Indicated? (NO) - Diagnostic Studies CT scan - abdomen Additional comments: Chest CTA 08/15/17 14:25 IMPRESSION: 1. No evidence of aortic dissection 2. 4.2 cm fusiform aneurysm of the ascending thoracic aorta 3. 3.4 cm abdominal aortic aneurysm. Please refer to management recommendations below 4. No evidence of mesenteric vessel occlusion 5. 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 Stable spiculated nodules in the right upper lobe on a background of pulmonary emphysema 7. Diffuse colonic wall thickening compatible with nonspecific colitis D/ / Salo Lainez MD / Salo Lainez MD Interpreting Provider: Salo Lainez MD Chest x-ray Additional comments: Chest X-Ray 08/15/17 14:39 IMPRESSION: No evidence of acute cardiopulmonary disease. D/ / Gurwinder Au MD / Gurwinder Au MD Interpreting Provider: Gurwinder Au MD <Angela Chand - Last Filed: 08/15/17 23:18> Date of Encounter: 08/15/17 Time of Encounter: 23:17 Internal Medicine - H&P: HPI History of present illness: Ms. Costa is a 66 year old female All Systems PM: A 10-system review of systems was performed and is negative for pertinent findings except as documented above in the HPI. - Constitutional Vitals: Temp Pulse Resp BP Pulse Ox 98.0 F 70 15 145/84 94 08/15/17 19:21 08/15/17 19:21 08/15/17 19:21 08/15/17 19:21 08/15/17 19:21 Internal Med - H&P Results - Labs CBC & Chem 7: 08/15/17 14:03 08/15/17 14:03 - Attending Attestation Patient independently seen and examined. Pt resting comfortably in bed and reports of feeling better since her arrival to the ER. Admitted for colitis. Will continue gentle IV fluids, IV abx, clear liquid diet Lungs clear to auscultation at this time, no signs of acute exacerbation of CHF or COPD will closely monitor Lactic acidosis resolved Case discussed with ROSEANNA Carnes, I agree with her documented findings, assessment, and plan.
[2017-08-15] MEDS ORDERED: D5% in Water 1,000 ML IVC PRN (19:43)
[2017-08-15] MEDS ORDERED: Dextrose Gel 15 GM PO PRN ×2 (19:43)
[2017-08-15] MEDS ORDERED: *HR* Dextrose 50 % in Water (Syg) 50 ML SYRINGE IVP PRN (19:43)
[2017-08-15 20:20] LABS: Hemoglobin A1C 5.5 %
[2017-08-15] MEDS: *HR* HYDROcodone/Acet 5/325 mg TABLET PO PRN (22:17)
[2017-08-15] MEDS: Ranolazine 500 MG TAB.ER.12H PO SCH (22:18)
[2017-08-15] MEDS: Gabapentin 300 MG CAPSULE PO SCH (22:18)
[2017-08-15] MEDS: Nicotine 21 MG PATCH.TD24 TD SCH (22:19)
[2017-08-15] MEDS: clonazePAM 0.5 MG TABLET PO PRN (23:03)
[2017-08-16] MEDS: MetroNIDAZOLE 500 MG/100 ML 500 MG/100 ML BAG IVPB SCH ×4 (01:03→23:38)
[2017-08-16] MEDS: Insulin LISPRO 300 UNITS/3 ML VIAL SQ SCH ×5 (01:04→23:42)
[2017-08-16 06:47] LABS: BUN/Creatinine Ratio 15 (6-26); Blood Urea Nitrogen 12 mg/dL (7-20); Carbon Dioxide 28 mEq/L (19-29); Chloride 103 mEq/L (98-109); Glucose 123 mg/dL (70-99); Osmolality,Calculated 293 (280-300); Sodium 141 mEq/L (136-145); eGFR For African Americans > 60 (> 60); eGFR For Non-African Americans > 60 (> 60)
[2017-08-16 06:48] LABS: Calcium 8.6 mg/dL (8.6-10.8)
[2017-08-16 07:01] LABS: Basophils % 0.2 %; Eosinophils # 0.2 K/mcL (0.0-0.6); Eosinophils % 2.6 %; Hematocrit 39.2 % (35.3-44.9); Immature Granulocytes % 0.5 % (0-4); Lymphocytes # 2.4 K/mcL (0.6-4.6); Mean Corpuscular HGB Conc 30.1 g/dL (31.6-35.5); Mean Corpuscular Hemoglobin 25.4 pg (28.0-33.3); Mean Corpuscular Volume 84.3 fL (83.0-100.0); Monocytes # 0.5 K/mcL (0.0-1.3); Monocytes % 6.1 %; Neutrophils # 5.3 K/mcL (1.6-8.9); Platelet Count 235 K/mcL (140-400); Red Blood Count 4.65 M/mcL (3.82-4.97); Red Cell Distribution Width 17.8 % (11.5-14.5); Segmented Neutrophils % 62.6 %
[2017-08-16] MEDS: Ranolazine 500 MG TAB.ER.12H PO SCH ×2 (08:55→20:45)
[2017-08-16] MEDS: Gabapentin 300 MG CAPSULE PO SCH ×3 (08:56→20:46)
[2017-08-16] MEDS: Sucralfate 1 GM TABLET PO SCH ×2 (08:56→15:24)
[2017-08-16] MEDS: *HR* Rivaroxaban 10 MG TABLET PO SCH ×2 (08:56→09:00)
[2017-08-16] MEDS: Aspirin Enteric Coated 81 MG Tablet PO SCH (08:56)
[2017-08-16] MEDS: (Umeclidinium Brm/Vilanterol Tr [Anoro Ellipta 62.5-2) IH SCH (08:58)
[2017-08-16] MEDS: Nicotine 21 MG PATCH.TD24 TD SCH (08:58)
[2017-08-16] MEDS: (Vortioxetine Hydrobromide [Trintellix] 20 MG) PO SCH (08:58)
[2017-08-16] MEDS: Pantoprazole 40 MG VIAL IVP SCH (08:59)
[2017-08-16] MEDS: clonazePAM 0.5 MG TABLET PO PRN ×2 (09:14→20:45)
[2017-08-16] MEDS: *HR* HYDROcodone/Acet 5/325 mg TABLET PO PRN ×3 (09:14→20:45)
[2017-08-16 09:23] LABS: Hemoglobin 11.8 g/dL (11.5-15.4)
--- NOTE | 2017-08-16 10:03 | Electrocardiograph Report ---
[place] [id number] Test Date: 2017-08-15 Pat Name: Ilene Costa Department: 104 Room: 3B22 Gender: F Ct Scan Tech: : [id number] Requested By: Celsa Santiago Order Number: [id number] Reading MD: Bertrand Babcock MD Measurements Intervals [place] Rate: 105 P: VT: 0 QRS: 72 QRSD: 117 T: -7 QT: 392 QTc: 453 Interpretive Statements ATRIAL FIBRILLATION WITH RAPID VENTRICULAR RESPONSE Electronically Signed On 08-16-2017 10:01:33 EDT by Bertrand Babcock MD
--- NOTE | 2017-08-16 12:11 | Event Note ---
<Mynor Berry - Last Filed: 08/16/17 12:09> Date of Encounter: 08/16/17 Time of Encounter: 11:00 Unable to see patient. Attempted to see pt 4 times, but pt remained off of the floor. Reviewed chart. Check stool studies to r/o infectious colitis, but could be secondary to ischemic colitis. During office visit on 08/03 patient was complaining of dysphagia with solids and an EGD is scheduled as an outpatient. Consider completing EGD while inpatient. Continue symptomatic treatment. <Patricio Torrez - Last Filed: 08/16/17 19:22> Date of Encounter: 08/16/17 Time of Encounter: 18:00 Pt seen ,full consult to follow. consult follow-up. CT with diffuse colitis currently not having any diarrhea complain of epigastric pain. She will have an EGD tomorrow to rule out gastric causes for epigastric pain
--- NOTE | 2017-08-16 12:29 | Internal Med Progress Note ---
Date of Encounter: 08/16/17 Time of Encounter: 12:26 - Assessment and plan (1) Colitis Current Visit: Yes Status: Acute Assessment and plan: presented with nausea, vomiting, abdominal pain, and diarrhea. WBC 9K, initial lactic acid 3.5; normalized with IV fluids. CT abd/pelvis with diffuse colonic wall thickening consistent with colitis. Cont IV cirpo and flagyl. Clear liquids , IV PPI. Stool studies pending. GI consulted. (2) Hypokalemia Current Visit: No Status: Resolved Assessment and plan: K 3.0; secondary to loose stool. Replaced. Monitor repeat CMP (3) Anemia Current Visit: No Status: Suspected Assessment and plan: Hgb 16 on arrival; repeat Hgb 11.8. No active/overt bleeding. Possible erroneous result as baseline Hgb appears to be around 11. Cont clear liquid diet , IV PPI, monitor repeat H&H (monitor with anticoagulation). Transfuse for Hgb less than 8. GI following Qualifiers: Anemia type: other cause Other causes of anemia: other cause, not classified Qualified Code(s): D64.89 - Other specified anemias (4) COPD (chronic obstructive pulmonary disease) Current Visit: Yes Status: Chronic Assessment and plan: per hx. With chronic cough but no wheezing on exam. Afebrile and no elevated WBC. No indication for resp ATB or steroids at this time. Cont home inhalers, nebs. Qualifiers: COPD type: chronic bronchitis Chronic bronchitis type: simple Qualified Code(s): J41.0 - Simple chronic bronchitis (5) History of pulmonary embolism Current Visit: No Status: Chronic Assessment and plan: hx bilateral DVTs and pulmonary embolism. Cont Xarelto (6) Type 2 diabetes mellitus Current Visit: Yes Status: Acute Assessment and plan: per hx. Holding home oral hypoglycemics. SSI while inpatient. Monitor blood sugar and titrate PRN Qualifiers: Diabetes mellitus complication status: without complication Diabetes mellitus long-term insulin use: without terminal system operator use Qualified Code(s): E11.9 - Type 2 diabetes mellitus without complications (7) Chronic diastolic (congestive) heart failure Current Visit: Yes Status: Acute Assessment and plan: per hx. TTE 2014 with EF 60% and diastolic dysfunction. Appears euvolemic on exam. Holding home lasix with poor PO intake. Cont gentle IV fluids. Repeat echo pending (8) DVT prophylaxis Current Visit: Yes Status: Acute Assessment and plan: Xarelto - Subjective Interval history: Seen and examined at bedside, patient is new to me. Information obtained from chart review and patient report. Patient says she feels a little better today. Still with ABD pain but improved. She is having intermittent nausea, no emesis.. Has been having loose stool but none since arrival. No CP, no SOB. Patient reports unchanged, chronic smokers cough - Constitutional Vitals: Temp Pulse Resp BP Pulse Ox 98.0 F 52 16 94/60 97 08/16/17 12:05 08/16/17 12:05 08/16/17 12:05 08/16/17 12:05 08/16/17 12:05 General appearance: Present: cachectic, A&O X 3, pleasant, no acute distress - Head Head exam: Present: atraumatic, normocephalic - Eye Eye exam: Present: PERRL, conjuntiva pink, sclera anicteric Pupils: Present: PERRL - Neck Neck exam general surgery: Present: supple, trachea midline. Absent: lymphadenopathy - Respiratory Respiratory exam: Present: rhonchi (Clears with cough). Absent: accessory muscle use, rales, wheezes - Cardiovascular Cardiovascular exam: Present: RRR, +S1, +S2. Absent: diastolic murmur, gallop, rubs, systolic murmur - GI/Abdominal GI/Abdominal exam: Present: normal bowel sounds, soft, tenderness, no peritoneal signs. Absent: distended - Extremities Exam Extremities exam: Present: warm, radial pulses palpable and symmetrical. Absent : calf tenderness, cyanotic, pedal edema - Neurological Exam Neurological exam: Present: CN II-XII intact, oriented X3, no focal deficits. Absent: pronater drift, facial droop, speech deficit - Skin Skin exam: Present: dry, intact Internal Medicine: Result - Labs CBC & Chem 7: 08/16/17 05:56 08/16/17 05:56 Labs: Short CBC 08/16/17 Range/Units 05:56 WBC 8.4 (4.3-11.1) K/mcL Hgb 11.8 D (11.5-15.4) g/dL Hct 39.2 (35.3-44.9) % Plt Count 235 (140-400) K/mcL Neutrophils # 5.3 (1.6-8.9) K/mcL BMP 08/16/17 05:56 Sodium 141 Potassium 3.0 L Chloride 103 Carbon Dioxide 28 BUN 12 Creatinine 0.80 Glucose 123 H Calcium 8.6 D - ABG Interpretation ABG results: PT/INR, D-dimer PT 15.2 Seconds (9.4-12.1) H 08/15/17 14:03 Consult Discharge Plan - Plan Referrals: Inder Izaguirre DO [Primary Care Provider] -
[2017-08-16 14:22] LABS: Hematocrit 38.2 % (35.3-44.9); Hemoglobin 11.9 g/dL (11.5-15.4)
[2017-08-17 04:39] LABS: Hematocrit 36.4 % (35.3-44.9); Mean Corpuscular HGB Conc 30.2 g/dL (31.6-35.5); Mean Corpuscular Hemoglobin 26.2 pg (28.0-33.3); Mean Corpuscular Volume 86.7 fL (83.0-100.0); Platelet Count 199 K/mcL (140-400); Red Cell Distribution Width 17.6 % (11.5-14.5)
[2017-08-17 04:57] LABS: Alanine Aminotransferase 7 Units/L (0-55); Albumin/Globulin Ratio 1.1 (1.1-2.2); Alkaline Phosphatase 53 Units/L (38-126); Aspartate Amino Transferase 10 Units/L (5-34); BUN/Creatinine Ratio 21 (6-26); Bilirubin,Total 0.4 mg/dL (0.2-1.2); Blood Urea Nitrogen 18 mg/dL (7-20); Calcium 8.7 mg/dL (8.6-10.8); Carbon Dioxide 26 mEq/L (19-29); Chloride 110 mEq/L (98-109); Globulin 2.7 g/dL (2.4-3.5); Glucose 108 mg/dL (70-99); Osmolality,Calculated 296 (280-300); Sodium 142 mEq/L (136-145); eGFR For African Americans > 60 (> 60); eGFR For Non-African Americans > 60 (> 60)
[2017-08-17 05:30] LABS: Potassium 4.1 mEq/L (3.5-4.5); Total Protein 5.7 g/dL (6.0-8.3)
[2017-08-17] MEDS: Insulin LISPRO 300 UNITS/3 ML VIAL SQ SCH ×3 (06:26→18:10)
[2017-08-17] MEDS: 0.9 % Sodium Chloride 1,000 ML IVC SCH ×2 (08:03→20:36)
[2017-08-17] MEDS: Ranolazine 500 MG TAB.ER.12H PO SCH ×2 (08:09→20:36)
[2017-08-17] MEDS: Gabapentin 300 MG CAPSULE PO SCH ×3 (08:09→20:35)
[2017-08-17] MEDS: Pantoprazole 40 MG VIAL IVP SCH (08:09)
[2017-08-17] MEDS: Sucralfate 1 GM TABLET PO SCH ×2 (08:10→15:17)
[2017-08-17] MEDS: Nicotine 21 MG PATCH.TD24 TD SCH (08:10)
[2017-08-17] MEDS: (Vortioxetine Hydrobromide [Trintellix] 20 MG) PO SCH (08:11)
[2017-08-17] MEDS: (Umeclidinium Brm/Vilanterol Tr [Anoro Ellipta 62.5-2) IH SCH (08:11)
[2017-08-17] MEDS: *HR* Rivaroxaban 10 MG TABLET PO SCH (08:12)
[2017-08-17] MEDS: Aspirin Enteric Coated 81 MG Tablet PO SCH (08:12)
[2017-08-17] MEDS: MetroNIDAZOLE 500 MG/100 ML 500 MG/100 ML BAG IVPB SCH ×3 (08:14→23:11)
[2017-08-17] MEDS: clonazePAM 0.5 MG TABLET PO PRN ×3 (08:24→20:34)
[2017-08-17] MEDS: *HR* HYDROcodone/Acet 5/325 mg TABLET PO PRN ×2 (08:24→20:34)
--- NOTE | 2017-08-17 13:49 | Gastroenterology Consult Note ---
<CarrieDebbi - Last Filed: 08/17/17 14:34> Date of Encounter: 08/17/17 Time of Encounter: 13:45 - Assessment and plan (1) Colitis Current Visit: Yes Status: Acute Assessment and plan: CT A/P showed areas of colonic wall thickening. Last colonoscopy on 07/17/17 showed non bleeding polyps in the sigmoid, and two in the ascending colon, and internal hemorrhoids. high fiber diet was recommended at that time. patient did have recent stool work up that was negative. Plan: continue to monitor. NPO EGD today fecal calprotectin and stool panel pending. - Time Spent With Patient Total time spent is greater than 50% in coordination of care (as documented) at patient's floor/unit and/or counseling patient: GI History of Present Illness - Data of Consult Consult date: 08/17/17 Requesting Physician: Taylor Interiano CNP - Consult Narrative Reason for consult: colitis History of present illness: Ms. Costa is a 66 year old female with PMHx of HTN/, HLD, CHF, COPD, CAD, PVD, DM. patient arrived to the hospital with chief complaint of nausea, vomiting, diarrhea, abdominal pain since her last discharge on 07/18. During her prior hospitalization, she was treated for acute lower GI bleed, had colonoscopy showing internal hemorrhoids. Patient reports bilious vomiting with bloody emesis. She reports longstanding diarrhea for about two months. The last time she received antibiotics was during her recent vascular surgery. today, she denies nausea, vomiting, fever. she admits to chills. she denies chest pain or shortness of breath, hematochezia, or melena. Patient did have recent stool work up that was negative. Past Med Surg Social Fam HX - Past Medical History Medical history: arthritis, atrial fibrillation, CHF, COPD, coronary artery disease, DVT, hyperlipidemia, hypertension, myocardial infarction, peripheral artery disease, other Psychiatric history: anxiety, depression - Past Surgical History Surgical History: angioplasty/stent, cholecystectomy, hysterectomy, knee replacement, other, vascular surgery, LE bypass - Social History Smoking Status: Current every day smoker Smokeless Tobacco Status: No Alcohol use: none Drug use: none - Family History Mother Adopted: No Living Status: Hx Family Cardiac Disorders: Yes Hx Family Respiratory Disorders: Yes Hx Family Cancer: No Hx Family GI Disorders: No Hx Family Endocrine Disorder: Yes Hx Family Neuromuscular Disorders: No Hx Family Neurologic Disorders: No Hx Family HEENT Disorders: No Hx Family Autoimmune Disorders: No Father Adopted: No Living Status: Hx Family Cardiac Disorders: Yes Hx Family Cancer: Yes (Prostate) Hx Family Endocrine Disorder: Yes (DM) All systems PM: reviewed and no additional remarkable complaints except as stated - Constitutional Vitals: Temp Pulse Resp BP Pulse Ox 97.6 F 61 15 122/73 98 08/17/17 11:42 08/17/17 11:42 08/17/17 11:42 08/17/17 11:42 08/17/17 11:42 General appearance: Present: A&O X 3, pleasant, no acute distress - Head Head exam: Present: atraumatic, normocephalic - Neck Neck exam general surgery: Present: supple, trachea midline - Respiratory Respiratory exam: Present: CTAB - Cardiovascular Cardiovascular exam: Present: RRR, +S1, +S2 - GI/Abdominal GI/Abdominal exam: Present: normal bowel sounds, soft. Absent: distended, tenderness - Extremities Exam Extremities exam: Absent: cyanotic, pedal edema - Neurological Exam Neurological exam: Present: alert, oriented X3, no focal deficits - Psychiatric Psychiatric exam: Present: normal affect, normal mood - Skin Skin exam: Present: intact Results - Labs CBC & Chem 7: 08/17/17 04:22 08/17/17 04:22 Labs: Last Result Calcium 8.7 mg/dL (8.6-10.8) 08/17/17 04:22 Troponin I 0.02 ng/mL (0-0.03) 08/15/17 14:03 Entire Visit Hgb 11.0 g/dL (11.5-15.4) L 08/17/17 04:22 Hct 36.4 % (35.3-44.9) 08/17/17 04:22 PT 15.2 Seconds (9.4-12.1) H 08/15/17 14:03 Total Bilirubin 0.4 mg/dL (0.2-1.2) 08/17/17 04:22 AST 10 Units/L (5-34) 08/17/17 04:22 ALT 7 Units/L (0-55) 08/17/17 04:22 Lipase < 10 Units/L (8-78) 08/15/17 14:03 - ABG ABG results: PT/INR, D-dimer PT 15.2 Seconds (9.4-12.1) H 08/15/17 14:03 Consult Discharge Plan - Plan Referrals: Inder Izaguirre DO [Primary Care Provider] - <Patricio Torrez - Last Filed: 08/17/17 17:21> Date of Encounter: 08/17/17 Time of Encounter: 17:15 - Time Spent With Patient Total time spent is greater than 50% in coordination of care (as documented) at patient's floor/unit and/or counseling patient: GI History of Present Illness - Data of Consult Requesting Physician: Taylor Interiano CNP - Consult Narrative History of present illness: Ms. Costa is a 66 year old female - Constitutional Vitals: Temp Pulse Resp BP Pulse Ox 97.3 F L 62 16 159/97 95 08/17/17 17:02 08/17/17 17:15 08/17/17 17:15 08/17/17 17:15 08/17/17 17:15 Results - Labs CBC & Chem 7: 08/17/17 04:22 08/17/17 04:22 Labs: Last Result Calcium 8.7 mg/dL (8.6-10.8) 08/17/17 04:22 Troponin I 0.02 ng/mL (0-0.03) 08/15/17 14:03 Entire Visit Hgb 11.0 g/dL (11.5-15.4) L 08/17/17 04:22 Hct 36.4 % (35.3-44.9) 08/17/17 04:22 PT 15.2 Seconds (9.4-12.1) H 08/15/17 14:03 Total Bilirubin 0.4 mg/dL (0.2-1.2) 08/17/17 04:22 AST 10 Units/L (5-34) 08/17/17 04:22 ALT 7 Units/L (0-55) 08/17/17 04:22 Lipase < 10 Units/L (8-78) 08/15/17 14:03 - ABG ABG results: PT/INR, D-dimer PT 15.2 Seconds (9.4-12.1) H 08/15/17 14:03 - Attending Attestation I examined this patient and my medical decision-making was reviewed with the Resident Physician. I agree with the documented findings, disposition and treatment plan as described except to the extent set forth below.
--- NOTE | 2017-08-17 14:07 | Internal Med Progress Note ---
Date of Encounter: 08/17/17 Time of Encounter: 14:04 - Assessment and plan (1) Colitis Current Visit: Yes Status: Acute Assessment and plan: presented with nausea, vomiting, abdominal pain, and diarrhea. WBC 9K, initial lactic acid 3.5; normalized with IV fluids. CT abd/pelvis with diffuse colonic wall thickening consistent with colitis. Cont IV cirpo and flagyl. IV PPI. Stool studies pending (has not had BM since arrival). NPO, EGD this after noon. GI following. (2) Anemia Current Visit: No Status: Suspected Assessment and plan: Hgb 16 on arrival; repeat Hgb 11.8. No active/overt bleeding. Possible erroneous result as baseline Hgb appears to be around 11. Repeat Hgb 11 which is consistent with baseline. Monitor H&H, IV PPI. GI following Qualifiers: Anemia type: other cause Other causes of anemia: other cause, not classified Qualified Code(s): D64.89 - Other specified anemias (3) COPD (chronic obstructive pulmonary disease) Current Visit: Yes Status: Chronic Assessment and plan: per hx. With chronic cough but no wheezing on exam. Afebrile and no elevated WBC. No indication for resp ATB or steroids at this time. Cont home inhalers, nebs. Qualifiers: COPD type: chronic bronchitis Chronic bronchitis type: simple Qualified Code(s): J41.0 - Simple chronic bronchitis (4) History of pulmonary embolism Current Visit: No Status: Chronic Assessment and plan: hx bilateral DVTs and pulmonary embolism. Cont Xarelto (5) Type 2 diabetes mellitus Current Visit: Yes Status: Acute Assessment and plan: per hx. Holding home oral hypoglycemics. SSI while inpatient. Monitor blood sugar and titrate PRN. Blood sugar controlled on 08/17/2017 Qualifiers: Diabetes mellitus complication status: without complication Diabetes mellitus rn long term care insulin use: without rn long term care use Qualified Code(s): E11.9 - Type 2 diabetes mellitus without complications (6) Chronic diastolic (congestive) heart failure Current Visit: Yes Status: Acute Assessment and plan: per hx. TTE 2014 with EF 60% and diastolic dysfunction. Appears euvolemic on exam. Holding home lasix with poor PO intake. Cont gentle IV fluids. Repeat echo with EF 60% and evidence of diastolic dysfunction. Resume lasix and stop fluids when able to take PO (7) DVT prophylaxis Current Visit: Yes Status: Acute Assessment and plan: Xarelto - Subjective Interval history: Seen and examined at bedside, no acute changes in assessment to report. Patient says she feels a little better today. She has an appetite and wants to eat. Has not had a bowel movement since arrival. EGD planned for this evening. - Constitutional Vitals: Temp Pulse Resp BP Pulse Ox 97.6 F 61 15 122/73 98 08/17/17 11:42 08/17/17 11:42 08/17/17 11:42 08/17/17 11:42 08/17/17 11:42 General appearance: Present: cachectic, A&O X 3, pleasant, no acute distress - Head Head exam: Present: atraumatic, normocephalic - Eye Eye exam: Present: PERRL, conjuntiva pink, sclera anicteric Pupils: Present: PERRL - Neck Neck exam general surgery: Present: supple, trachea midline. Absent: lymphadenopathy - Respiratory Respiratory exam: Present: CTAB. Absent: accessory muscle use, rales, rhonchi, wheezes - Cardiovascular Cardiovascular exam: Present: RRR, +S1, +S2. Absent: diastolic murmur, gallop, rubs, systolic murmur - GI/Abdominal GI/Abdominal exam: Present: normal bowel sounds, soft, no peritoneal signs. Absent: distended, tenderness - Extremities Exam Extremities exam: Present: warm, radial pulses palpable and symmetrical. Absent : calf tenderness, cyanotic, pedal edema - Neurological Exam Neurological exam: Present: CN II-XII intact, oriented X3, no focal deficits. Absent: pronater drift, facial droop, speech deficit - Skin Skin exam: Present: dry, intact Internal Medicine: Result - Labs CBC & Chem 7: 08/17/17 04:22 08/17/17 04:22 Labs: Short CBC 08/16/17 08/17/17 Range/Units 13:52 04:22 WBC 6.3 (4.3-11.1) K/mcL Hgb 11.9 11.0 L (11.5-15.4) g/dL Hct 38.2 36.4 (35.3-44.9) % Plt Count 199 (140-400) K/mcL BMP 08/17/17 04:22 Sodium 142 Potassium 4.1 D Chloride 110 H Carbon Dioxide 26 BUN 18 Creatinine 0.86 Glucose 108 H Calcium 8.7 Liver Function 08/17/17 Range/Units 04:22 Total Bilirubin 0.4 (0.2-1.2) mg/dL AST 10 (5-34) Units/L ALT 7 (0-55) Units/L Alkaline Phosphatase 53 (38-126) Units/L Albumin 3.0 L D (3.5-5.0) g/dL - ABG Interpretation ABG results: PT/INR, D-dimer PT 15.2 Seconds (9.4-12.1) H 08/15/17 14:03 Consult Discharge Plan - Plan Referrals: Inder Izaguirre DO [Primary Care Provider] -
[2017-08-17] MEDS ORDERED: *HR* Midazolam HCl 5 MG/5 ML VIAL IVP ONE (16:58)
[2017-08-17] MEDS ORDERED: *HR* FentaNYL (PF) 100 MCG/2 ML VIAL ONE (16:58)
[2017-08-17] MEDS ORDERED: Tetracaine/Benzocaine/Butamben 200MG/SPRAY (100SPY/BOT) MM ONE (17:21)
[2017-08-17] MEDS ORDERED: Simethicone 40 MG/0.6 ML MLS IR ONE (17:21)
[2017-08-17] MEDS ORDERED: *HR* Midazolam HCl 5 MG/5 ML VIAL IVP PRN (17:21)
[2017-08-17] MEDS ORDERED: *HR* FentaNYL (PF) 100 MCG/2 ML VIAL IVP PRN (17:21)
--- NOTE | 2017-08-17 17:22 | Pre-Sedation Evaluation ---
Pre-sedation evaluation - Pre-sedation checklist Date of procedure: 08/17/17 Procedure: EGD Recent Vitals: Last Vital Signs Temp 97.3 F L 08/17/17 17:02 Pulse 62 08/17/17 17:15 Resp 16 08/17/17 17:15 BP 159/97 08/17/17 17:15 Pulse Ox 95 08/17/17 17:15 H&P (including ROS) documented in medical record: No Previous reaction to sedatives/anesthetics: No Dietary Status: NPO after Midnight Dentition: poor dentition ASA Classification *see protocol: CLASS III-Severe systemic disease Plan of Care: Pt appropriate candidate for procedure/moderate/conscious sedation , Risks/benefits of procedure/sedation discussed w/ patient/family
[2017-08-17] MEDS: *HR* Morphine 2 MG/ML SYRINGE IVP PRN ×2 (18:00→23:09)
[2017-08-18] MEDS: Insulin LISPRO 300 UNITS/3 ML VIAL SQ SCH ×3 (02:17→11:50)
[2017-08-18 03:10] LABS: Hematocrit 33.9 % (35.3-44.9); Hemoglobin 10.1 g/dL (11.5-15.4); Mean Corpuscular HGB Conc 29.8 g/dL (31.6-35.5); Mean Corpuscular Hemoglobin 25.8 pg (28.0-33.3); Mean Corpuscular Volume 86.5 fL (83.0-100.0); Mean Platelet Volume 9.6 fL (9.4-12.4); Platelet Count 192 K/mcL (140-400); Red Blood Count 3.92 M/mcL (3.82-4.97); Red Cell Distribution Width 17.6 % (11.5-14.5)
[2017-08-18] MEDS: *HR* Morphine 2 MG/ML SYRINGE IVP PRN ×3 (03:11→12:49)
[2017-08-18 03:28] LABS: Alanine Aminotransferase 7 Units/L (0-55); Albumin 2.9 g/dL (3.5-5.0); Albumin/Globulin Ratio 1.2 (1.1-2.2); Alkaline Phosphatase 56 Units/L (38-126); Aspartate Amino Transferase 12 Units/L (5-34); BUN/Creatinine Ratio 18 (6-26); Bilirubin,Total 0.2 mg/dL (0.2-1.2); Blood Urea Nitrogen 14 mg/dL (7-20); Calcium 8.9 mg/dL (8.6-10.8); Carbon Dioxide 27 mEq/L (19-29); Chloride 111 mEq/L (98-109); Globulin 2.5 g/dL (2.4-3.5); Glucose 88 mg/dL (70-99); Osmolality,Calculated 298 (280-300); Potassium 4.1 mEq/L (3.5-4.5); Sodium 144 mEq/L (136-145); Total Protein 5.4 g/dL (6.0-8.3); eGFR For African Americans > 60 (> 60); eGFR For Non-African Americans > 60 (> 60)
[2017-08-18] MEDS: Pantoprazole 40 MG VIAL IVP SCH (08:36)
[2017-08-18] MEDS: *HR* Rivaroxaban 10 MG TABLET PO SCH (08:37)
[2017-08-18] MEDS: Ranolazine 500 MG TAB.ER.12H PO SCH (08:37)
[2017-08-18] MEDS: Gabapentin 300 MG CAPSULE PO SCH (08:37)
[2017-08-18] MEDS: Sucralfate 1 GM TABLET PO SCH (08:37)
[2017-08-18] MEDS: Nicotine 21 MG PATCH.TD24 TD SCH (08:37)
[2017-08-18] MEDS: (Vortioxetine Hydrobromide [Trintellix] 20 MG) PO SCH (08:38)
[2017-08-18] MEDS: Aspirin Enteric Coated 81 MG Tablet PO SCH (08:38)
[2017-08-18] MEDS: (Umeclidinium Brm/Vilanterol Tr [Anoro Ellipta 62.5-2) IH SCH (08:38)
[2017-08-18] MEDS: MetroNIDAZOLE 500 MG/100 ML 500 MG/100 ML BAG IVPB SCH (08:38)
[2017-08-18 11:25] VITALS: BP 143/73
[2017-08-18] MEDS: *HR* HYDROcodone/Acet 5/325 mg TABLET PO PRN (11:25)
[2017-08-18] MEDS: 0.9 % Sodium Chloride 1,000 ML IVC SCH (11:51)
--- NOTE | 2017-08-18 12:50 | Discharge Summary ---
Date of Encounter: 08/18/17 Time of Encounter: 12:49 - Discharge Diagnosis (1) Colitis Priority: Primary Status: Acute Comments: presented with nausea, vomiting, abdominal pain, and diarrhea. WBC 9K, initial lactic acid 3.5; normalized with IV fluids. CT abd/pelvis with diffuse colonic wall thickening consistent with colitis. Initially treated with IV cirpo and flagyl. IV PPI. Stool studies as no BM while inpatient. EGD 08/17/2017 with diffuse esophageal and gastric erythema. Clinically and symptomatically improved. Discharge home with BID PPI, carafate, cipro and flagyl. Will need to follow-up with GI for bx results. All sx's resolved at times of discharge. Tolerating regular diet (2) Anemia Priority: Primary Status: Suspected Comments: Hgb 16 on arrival; repeat Hgb 11.8. No active/overt bleeding. Possible erroneous result as baseline Hgb appears to be around 11. Repeat Hgb 11 which is consistent with baseline. Hgb 11.3 at discharge Qualifiers: Anemia type: other cause Other causes of anemia: other cause, not classified Qualified Code(s): D64.89 - Other specified anemias (3) COPD (chronic obstructive pulmonary disease) Priority: Primary Status: Chronic Comments: per hx. With chronic cough but no wheezing on exam. Afebrile and no elevated WBC. No indication for resp ATB or steroids at this time. Cont home inhalers Qualifiers: COPD type: chronic bronchitis Chronic bronchitis type: simple Qualified Code(s): J41.0 - Simple chronic bronchitis (4) History of pulmonary embolism Priority: Primary Status: Chronic Comments: hx bilateral DVTs and pulmonary embolism. Cont Xarelto (5) Type 2 diabetes mellitus Priority: Primary Status: Acute Comments: per hx. Holding home oral hypoglycemics. SSI while inpatient. Monitor blood sugar and titrate PRN. Blood sugar controlled on 08/18/2017 Qualifiers: Diabetes mellitus complication status: without complication Diabetes mellitus rn long term care insulin use: without custodial use Qualified Code(s): E11.9 - Type 2 diabetes mellitus without complications (6) Chronic diastolic (congestive) heart failure Priority: Primary Status: Acute Comments: per hx. TTE 2014 with EF 60% and diastolic dysfunction. Appears euvolemic on exam. Home lasix held with poor PO intake. She received gentle IV fluids. Repeat echo with EF 60% and evidence of diastolic dysfunction. Lasix resumed at discharge (7) AAA (abdominal aortic aneurysm) without rupture Priority: Primary Status: Acute Comments: has known AAA. Chest CTA with with stable 4.2 cm fusiform aneurysm of the ascending thoracic aorta and 3. 3.4 cm abdominal aortic aneurysm. Patient follows with vascular, no plan on intervention unless size greater than 5. CAn follow-up as previously planned. Cont home ASA, statin (8) DVT prophylaxis Priority: Primary Status: Acute Comments: xarelto - Discharge Medications Prescriptions: Ciprofloxacin HCl [Cipro] 500 mg PO BID #8 tablet metroNIDAZOLE [Flagyl] 500 mg PO BID #4 tablet Omeprazole [PriLOSEC] 40 mg PO BID #60 cap Sucralfate [Carafate] 1 gm PO 0730,1630 #30 tablet Home Medications: Albuterol Sulfate [Albuterol Inhaler] 2 puff IH Q4H PRN 10/22/16 [History] Aspirin [Lo-Dose Aspirin EC] 81 mg PO DAILY 10/22/16 [History] Furosemide [Lasix] 20 mg PO DAILY 10/22/16 [History] Gabapentin 600 mg PO TID 10/22/16 [History] Isosorbide DInitrate [Isosorbide Dinitrate] 30 mg PO BID 10/22/16 [History] Ranolazine [Ranexa] 500 mg PO BID 30 Days tab.er.12h 10/22/16 [Rx] Rivaroxaban [Xarelto] 20 mg PO DAILY 10/22/16 [History] Umeclidinium Brm/Vilanterol Tr [Anoro Ellipta 62.5-25 Mcg INH] 1 puff IH DAILY 10/22/16 [History] Atorvastatin Calcium [Lipitor] 80 mg PO HS 02/16/17 [History] clonazePAM [Klonopin] 1 mg PO TID PRN 02/16/17 [History] Metformin HCl [Glucophage] 1,000 mg PO BID 05/11/17 [History] Metoprolol [Lopressor] 25 mg PO BID 05/11/17 [History] Lipase/Protease/Amylase [Celeste Healy 12,000 Units Capsule] 1 each PO AD 08/15/17 [ History] Lipase/Protease/Amylase [Celeste Healy 12,000 Units Capsule] 2 each PO TIDWM [History] Vortioxetine Hydrobromide [Trintellix] 20 mg PO DAILY 08/15/17 [History] Ciprofloxacin HCl [Cipro] 500 mg PO BID #8 tablet 08/18/17 [Rx] Omeprazole [PriLOSEC] 40 mg PO BID #60 cap 08/18/17 [Rx] Sucralfate [Carafate] 1 gm PO 0730,1630 #30 tablet 08/18/17 [Rx] metroNIDAZOLE [Flagyl] 500 mg PO BID #4 tablet 08/18/17 [Rx] Allergies/Adverse Reactions: 3 Allergy/AdvReac Type Severity Reaction Status Date / Time No Known Allergies Allergy Verified 07/14/17 17:15 Procedures/tests Complete & Pending: Procedures Performed prior 72 hours Category Date Time Status EV echocardiogram Routine Y 08/16/17 19:17 Completed Date of admission: 08/15/17 17:24 Primary care physician: Inder Izaguirre DO Consults: 08/15/17 18:22 Consult to Gastroenterology [CONS] Routine Consulting Provider: [facility] [place] Reason for Consult: Recent hospitalization for GI bleed, follows with Dr. Torrez as outpatient, here with colitis Call Completed: No 08/16/17 11:45 Consult to Occupational Therapy [CONS] Routine Comment: Evaluate, develop and implement POC Reason for Consult: discharge planning Consult to Physical Therapy [CONS] Routine Comment: Evaluate, develop and implement POC Reason for Consult: discharge planning Discharging clinician: Taylor Interiano Anticipated date of discharge: 08/18/17 - Patient Status Disposition: Home, Self-Care Overall status at discharge: patient is back to baseline - Discharge Instructions Follow Up With: Inder Izaguirre DO [Primary Care Provider] - Patricio Torrez MD [Partnered Physician] - - Diet and Activity Activity: increase activity as tolerated Diet: advance to your usual diet Interval History: Seen and examined at bedside; says she feel much better and wants to go home. She denies ABD pain, no N/V/D. Hospital course: Ms. Costa is a 66 year old female - Time Spent with Patient Total time spent providing and/or coordinating discharge services: Greater than 30 minutes (49 minutes spent on discharge) - Constitutional Vitals: Temp Pulse Resp BP Pulse Ox 98.4 F 52 16 143/73 97 08/18/17 11:00 08/18/17 11:00 08/18/17 11:00 08/18/17 11:00 08/18/17 11:00 General appearance: Present: cachectic, A&O X 3, pleasant, no acute distress - Head Head exam: Present: atraumatic, normocephalic - Eye Eye exam: Present: PERRL, conjuntiva pink, sclera anicteric Pupils: Present: PERRL - Neck Neck exam general surgery: Present: supple, trachea midline. Absent: lymphadenopathy - Respiratory Respiratory exam: Present: CTAB. Absent: accessory muscle use, rales, rhonchi, wheezes - Cardiovascular Cardiovascular exam: Present: RRR, +S1, +S2. Absent: diastolic murmur, gallop, rubs, systolic murmur - GI/Abdominal GI/Abdominal exam: Present: normal bowel sounds, soft, no peritoneal signs. Absent: distended, tenderness - Extremities Exam Extremities exam: Present: warm, radial pulses palpable and symmetrical. Absent : calf tenderness, cyanotic, pedal edema - Neurological Exam Neurological exam: Present: CN II-XII intact, oriented X3, no focal deficits. Absent: pronater drift, facial droop, speech deficit - Skin Skin exam: Present: dry, intact
== END 2017-08-18 14:51 | disposition home or self-care (01) ==
LOC: 3BNU 13:40 → EMEROO 13:40 → 3BNU 18:28
PROVIDERS: ADMIT Nurse Practitioner; ATTEND Registered Nurse
PROC: ENDOEBX (2017-08-17 17:30)

== ENCOUNTER 2017-10-13 19:27 | Observation (INO) ==
[2017-10-13] MEDS ORDERED: Oxymetazoline Nasal SPRAY BOTTLE NS ONE (19:30)
--- NOTE | 2017-10-13 19:35 | Emergency Department Note ---
Disposition Clinical Impression: Hemorrhage of tongue Disposition: Admitted As Inpatient Condition: Good General Adult HPI - General Chief complaint: ED Dental/Oral Stated complaint: tongue bleeding Time Seen by Provider: 10/13/17 19:30 Nursing Notes Reviewed: Yes Vital Signs Reviewed: Yes - Related Data Home Medications Medication Instructions Recorded Confirmed Albuterol Sulfate [Albuterol 2 puff IH Q4H PRN 10/22/16 10/13/17 Inhaler] Furosemide [Lasix] 20 mg PO DAILY 10/22/16 10/13/17 Gabapentin 600 mg PO TID 10/22/16 10/13/17 Isosorbide DInitrate [Isosorbide 30 mg PO BID 10/22/16 10/13/17 Dinitrate] Rivaroxaban [Xarelto] 20 mg PO DAILY 10/22/16 10/13/17 Atorvastatin Calcium [Lipitor] 80 mg PO HS 02/16/17 10/13/17 clonazePAM [Klonopin] 1 mg PO TID PRN 02/16/17 10/13/17 Metformin HCl [Glucophage] 1,000 mg PO BID 05/11/17 10/13/17 Metoprolol [Lopressor] 25 mg PO BID 05/11/17 10/13/17 Lipase/Protease/Amylase [Celeste Healy 1 each PO AD 08/15/17 10/13/17 12,000 Units Capsule] Lipase/Protease/Amylase [Celeste Healy 2 each PO TIDWM 08/15/17 10/13/17 12,000 Units Capsule] Albuterol Neb [Proventil Neb] 2.5 mg IH TID PRN 10/13/17 10/13/17 Ondansetron [Zofran ODT] 8 mg PO Q8H PRN 10/13/17 10/13/17 Previous Rx's Medication Instructions Recorded Ranolazine [Ranexa] 500 mg PO BID 30 Days tab.er.12h 10/22/16 Omeprazole [PriLOSEC] 40 mg PO BID #60 cap 08/18/17 Oxycodone HCl/Acetaminophen 1 each PO Q8HR PRN #24 tablet 08/18/17 [Percocet 5-325 mg Tablet] Sucralfate [Carafate] 1 gm PO 0730,1630 #30 tablet 08/18/17 Allergies Allergy/AdvReac Type Severity Reaction Status Date / Time No Known Allergies Allergy Verified 07/14/17 17:15 Past Medical History - Past Medical History Medical history: Reports: arthritis, atrial fibrillation, CHF, COPD, coronary artery disease, DVT, hyperlipidemia, hypertension, myocardial infarction, peripheral artery disease, other Surgical history: Reports: angioplasty/stent, cholecystectomy, hysterectomy, knee replacement, other, vascular surgery, LE bypass Psychiatric history: Reports: anxiety, depression - Social History Smoking Status: Current every day smoker Smokeless Tobacco Status: No Alcohol use: Reports: none Drug use: Reports: none Course Vital Signs Temperature 97.4 F L 10/13/17 19:27 Pulse Rate 68 10/13/17 19:27 Respiratory Rate 18 10/13/17 19:27 Blood Pressure 179/86 10/13/17 19:27 O2 Sat by Pulse Oximetry 92 10/13/17 19:27 Temperature 97.4 F L 10/13/17 19:27 Pulse Rate 53 10/13/17 22:08 Respiratory Rate 18 10/13/17 22:08 Blood Pressure 144/86 10/13/17 22:08 O2 Sat by Pulse Oximetry 94 10/13/17 22:08 Oxygen Delivery Oxygen Delivery Nasal Cannula Medical Decision Making - MDM Narrative Medical decision making narrative: I examined this patient and my medical decision-making was reviewed with the Resident Physician. I agree with the documented findings, disposition and treatment plan as described except to the extent set forth below. Patient seen and evaluated on arrival with EMS and Dr. Lomax, I agree with his evaluation and management plan, SuperScan the patient's stay. Patient's of bleeding from her tongue going on for 2 weeks, she saw her doctor but forgot to tell him about it. She is on Xarelto. She has an area in the medial aspect of her tongue looks like the bleeding is coming from were going to have her rinse her mouth out with cold water and apply some Afrin pads on there with pressure sealing it stop bleeding indeterminate this is a laceration and abrasion heart this could be a lesion of some type. She is in agreement with this plan. 2100 hrs. tried direct pressure, and then using a combination of Afrin and direct pressure and the bleeding slowed but did not stop. We are using TXa on the area and now with pressure then if this does not work will speak to ENT. 6 hrs. colon bleeding is still controlled this time regarding to admit her, spoke with ENT, will do consult and will admit to the hospitalist 2300 hrs. Hospital saw the patient and wanted ENT to come see them in the department. But they said they will see him in the morning as she stable this is not an arterial bleed. The bleeding does stop with TX A but the patient is using a suction Yunker catheter and keeps placement in her mouth I think that is irritating the area and not allowing it to properly have hemostasis. I will have hospitalist speak with ENT if they need to but she has been accepted by hospitalist and has a bed at this time. - Lab Data Result diagrams: 10/13/17 19:43 10/13/17 19:43 Lab Results 10/13/17 10/13/17 10/13/17 Range/Units 19:43 19:43 19:43 WBC 6.2 (4.3-11.1) K/mcL RBC 4.17 (3.82-4.97) M/mcL Hgb 11.1 L (11.5-15.4) g/dL Hct 35.2 L (35.3-44.9) % MCV 84.4 (83.0-100.0) fL MCH 26.6 L (28.0-33.3) pg MCHC 31.5 L (31.6-35.5) g/dL RDW 17.5 H (11.5-14.5) % Plt Count 194 (140-400) K/mcL MPV 9.5 (9.4-12.4) fL Immature Gran % 0.3 (0-4) % Seg Neutrophils % 57.3 % Lymphocytes % 30.5 % Monocytes % 8.3 % Eosinophils % 3.4 % Basophils % 0.2 % Neutrophils # 3.5 (1.6-8.9) K/mcL Lymphocytes # 1.9 (0.6-4.6) K/mcL Monocytes # 0.5 (0.0-1.3) K/mcL Eosinophils # 0.2 (0.0-0.6) K/mcL Basophils # 0.0 (0.0-0.2) K/mcL PT 22.5 H (9.4-12.1) Seconds INR 2.1 Sodium 142 (136-145) mEq/L Potassium 3.2 L (3.5-4.5) mEq/L Chloride 106 (98-109) mEq/L Carbon Dioxide 27 (19-29) mEq/L BUN 13 (7-20) mg/dL Creatinine 0.78 (0.57-1.11) mg/dL Est GFR ( Amer) > 60 (> 60) Est GFR (Non-Af Amer) > 60 (> 60) BUN/Creatinine Ratio 17 (6-26) Glucose 126 H (70-99) mg/dL Calculated Osmolality 296 (280-300) Calcium 9.0 (8.6-10.8) mg/dL Blood Type Antibody Screen 10/13/17 Range/Units 21:29 WBC (4.3-11.1) K/mcL RBC (3.82-4.97) M/mcL Hgb (11.5-15.4) g/dL Hct (35.3-44.9) % MCV (83.0-100.0) fL MCH (28.0-33.3) pg MCHC (31.6-35.5) g/dL RDW (11.5-14.5) % Plt Count (140-400) K/mcL MPV (9.4-12.4) fL Immature Gran % (0-4) % Seg Neutrophils % % Lymphocytes % % Monocytes % % Eosinophils % % Basophils % % Neutrophils # (1.6-8.9) K/mcL Lymphocytes # (0.6-4.6) K/mcL Monocytes # (0.0-1.3) K/mcL Eosinophils # (0.0-0.6) K/mcL Basophils # (0.0-0.2) K/mcL PT (9.4-12.1) Seconds INR Sodium (136-145) mEq/L Potassium (3.5-4.5) mEq/L Chloride (98-109) mEq/L Carbon Dioxide (19-29) mEq/L BUN (7-20) mg/dL Creatinine (0.57-1.11) mg/dL Est GFR ( Amer) (> 60) Est GFR (Non-Af Amer) (> 60) BUN/Creatinine Ratio (6-26) Glucose (70-99) mg/dL Calculated Osmolality (280-300) Calcium (8.6-10.8) mg/dL Blood Type O POSITIVE Antibody Screen NEGATIVE
--- NOTE | 2017-10-13 19:42 | Emergency Department Note ---
Disposition Clinical Impression: Hemorrhage of tongue Disposition: Admitted As Inpatient Condition: Good Referrals: Inder Izaguirre DO [Primary Care Provider] - Forms: ED Satisfaction Letter General Adult HPI - General Chief complaint: ED Dental/Oral Stated complaint: tongue bleeding Time Seen by Provider: 10/13/17 19:30 Source: patient, EMS Mode of arrival: EMS Limitations: no limitations Nursing Notes Reviewed: Yes Vital Signs Reviewed: Yes - History of Present Illness HPI Narrative: 66-year-old female currently on Xarelto who presents to the ER due to bleeding from her tongue. She reports it has been going on for 2 weeks but forgot to tell her doctor when she last saw them. Reports she has been putting pressure on to it. She denies any hemoptysis, hematochezia, melena, hematuria. No prior history of bleeding like this before. No other complaints. Pt Subjective Complaint: Tongue bleeding Onset (ago): week(s) Location: other (Tongue) Pain Severity: severe Pain Scale: 10 Improves with: nothing Worsens with: nothing Associated symptoms: Reports: denies other symptoms Treatments Prior to Arrival: none - Related Data Home Medications Medication Instructions Recorded Confirmed Albuterol Sulfate [Albuterol 2 puff IH Q4H PRN 10/22/16 10/13/17 Inhaler] Furosemide [Lasix] 20 mg PO DAILY 10/22/16 10/13/17 Gabapentin 600 mg PO TID 10/22/16 10/13/17 Isosorbide DInitrate [Isosorbide 30 mg PO BID 10/22/16 10/13/17 Dinitrate] Rivaroxaban [Xarelto] 20 mg PO DAILY 10/22/16 10/13/17 Atorvastatin Calcium [Lipitor] 80 mg PO HS 02/16/17 10/13/17 clonazePAM [Klonopin] 1 mg PO TID PRN 02/16/17 10/13/17 Metformin HCl [Glucophage] 1,000 mg PO BID 05/11/17 10/13/17 Metoprolol [Lopressor] 25 mg PO BID 05/11/17 10/13/17 Lipase/Protease/Amylase [Celeste Healy 1 each PO AD 08/15/17 10/13/17 12,000 Units Capsule] Lipase/Protease/Amylase [Celeste Healy 2 each PO TIDWM 08/15/17 10/13/17 12,000 Units Capsule] Albuterol Neb [Proventil Neb] 2.5 mg IH TID PRN 10/13/17 10/13/17 Ondansetron [Zofran ODT] 8 mg PO Q8H PRN 10/13/17 10/13/17 Previous Rx's Medication Instructions Recorded Ranolazine [Ranexa] 500 mg PO BID 30 Days tab.er.12h 10/22/16 Omeprazole [PriLOSEC] 40 mg PO BID #60 cap 08/18/17 Oxycodone HCl/Acetaminophen 1 each PO Q8HR PRN #24 tablet 08/18/17 [Percocet 5-325 mg Tablet] Sucralfate [Carafate] 1 gm PO 0730,1630 #30 tablet 08/18/17 Allergies Allergy/AdvReac Type Severity Reaction Status Date / Time No Known Allergies Allergy Verified 07/14/17 17:15 All systems ED: reviewed and negative except as stated. ENT ED: Reports: other (Bleeding from tongue). Denies: epistaxis Respiratory: Denies: hemoptysis Gastrointestinal: Denies: hematemesis, melena, hematochezia Genitourinary: Denies: hematuria Past Medical History - Past Medical History Attestation: Yes The following information was validated with the patient. Source: patient Medical history: Reports: arthritis, atrial fibrillation, CHF, COPD, coronary artery disease, DVT, hyperlipidemia, hypertension, myocardial infarction, peripheral artery disease, other Surgical history: Reports: angioplasty/stent, cholecystectomy, hysterectomy, knee replacement, other, vascular surgery, LE bypass Psychiatric history: Reports: anxiety, depression - Social History Smoking Status: Current every day smoker Smokeless Tobacco Status: No Alcohol use: Reports: none Drug use: Reports: none Physical Exam - General Limitations: no limitations General appearance: alert, in no apparent distress - Head Head exam: atraumatic, normocephalic - Eye Eye exam: Present: normal appearance - ENT ENT exam: normal oropharynx - Expanded ENT Exam External ear exam: Present: other (Patient has some bleeding noted from the anterior surface of the left side of her tongue.) - Neck Neck exam: Present: normal inspection - Chest Chest inspection: Present: normal inspection - Respiratory Respiratory exam: Present: normal lung sounds bilaterally - Cardiovascular Cardiovascular exam: Present: regular rate, normal rhythm, normal heart sounds - Abdominal Exam Abdominal exam: Present: soft, Non-Tender. Absent: tenderness - Extremities Exam Extremities exam: Present: normal inspection, full ROM - Expanded Upper Extremity Exam Shoulder exam: Present: normal inspection, full ROM Arm exam: Present: normal inspection, full ROM Elbow exam: Present: normal inspection, full ROM Forearm/Wrist exam: Present: normal inspection, full ROM Hand exam: Present: normal inspection, full ROM - Expanded Lower Extremity Exam Hip/Pelvis exam: Present: normal inspection, full ROM Upper leg exam: Present: normal inspection, full ROM Knee exam: Present: normal inspection, full ROM Lower leg exam: Present: normal inspection, full ROM Ankle exam: Present: normal inspection, full ROM Foot/toe exam: Present: normal inspection, full ROM - Neurological Exam Neurological exam: Present: alert - Psychiatric Psychiatric exam: Present: normal affect - Skin Skin exam: Present: warm, dry, intact Course Course Narrative: Patient seen and examined. We will have her wash out her mouth and then placed some Afrin with 2 x 2's and clamped. - Reevaluation(s) Reevaluation #1: Patient did have some bleeding but improved. TXA ordered and placed on 2 x 2's and clamped to her tongue. She is also suctioning blood out as well. Reevaluation #2: bleeding has subsided after txa. Clot on her tongue. Spoke with ENT who will see the patient in consultation with admission to the hospitalist. Patient updated. In agreement with plan. - Consultations Consultation #1: I spoke with the on-call ENT physician Dr. Gomez. Discussed the patient's history exam labs and interventions to date. He agrees to see the patient in consultation with admission to the hospitalist service. Vital Signs Temperature 97.4 F L 10/13/17 19:27 Pulse Rate 68 10/13/17 19:27 Respiratory Rate 18 10/13/17 19:27 Blood Pressure 179/86 10/13/17 19:27 O2 Sat by Pulse Oximetry 92 10/13/17 19:27 Temperature 97.4 F L 10/13/17 19:27 Pulse Rate 68 10/13/17 19:27 Respiratory Rate 18 10/13/17 19:27 Blood Pressure 179/86 10/13/17 19:27 O2 Sat by Pulse Oximetry 92 10/13/17 19:27 Oxygen Delivery Oxygen Delivery Room Air Medical Decision Making - MDM Narrative Medical decision making narrative: 66-year-old female on anticoagulation presents to the ER due to bleeding from her tongue. Has been going on intermittently for 2 weeks but worsened tonight. She is noted to be anemic with a hemoglobin of 11 which is stable from her prior. We had to use Afrin, transient exam at [place] and suction to stop her bleeding here. She is currently protecting her airway in no distress. Case discussed with on-call ENT. Admitted to the hospitalist service with ENT consultation. - Lab Data Lab results reviewed: Yes I reviewed the patient's lab results. Result diagrams: 10/13/17 19:43 10/13/17 19:43 Lab Results 10/13/17 10/13/17 10/13/17 Range/Units 19:43 19:43 19:43 WBC 6.2 (4.3-11.1) K/mcL RBC 4.17 (3.82-4.97) M/mcL Hgb 11.1 L (11.5-15.4) g/dL Hct 35.2 L (35.3-44.9) % MCV 84.4 (83.0-100.0) fL MCH 26.6 L (28.0-33.3) pg MCHC 31.5 L (31.6-35.5) g/dL RDW 17.5 H (11.5-14.5) % Plt Count 194 (140-400) K/mcL MPV 9.5 (9.4-12.4) fL Immature Gran % 0.3 (0-4) % Seg Neutrophils % 57.3 % Lymphocytes % 30.5 % Monocytes % 8.3 % Eosinophils % 3.4 % Basophils % 0.2 % Neutrophils # 3.5 (1.6-8.9) K/mcL Lymphocytes # 1.9 (0.6-4.6) K/mcL Monocytes # 0.5 (0.0-1.3) K/mcL Eosinophils # 0.2 (0.0-0.6) K/mcL Basophils # 0.0 (0.0-0.2) K/mcL PT 22.5 H (9.4-12.1) Seconds INR 2.1 Sodium 142 (136-145) mEq/L Potassium 3.2 L (3.5-4.5) mEq/L Chloride 106 (98-109) mEq/L Carbon Dioxide 27 (19-29) mEq/L BUN 13 (7-20) mg/dL Creatinine 0.78 (0.57-1.11) mg/dL Est GFR ( Amer) > 60 (> 60) Est GFR (Non-Af Amer) > 60 (> 60) BUN/Creatinine Ratio 17 (6-26) Glucose 126 H (70-99) mg/dL Calculated Osmolality 296 (280-300) Calcium 9.0 (8.6-10.8) mg/dL S.B.Ashish - Ana Situation: Demographics, MOA Background: Presenting Complaint, Relevant PMH, Meds, & Allergies Assessment: Course and respsone to treatment, Exam Concerns, Patient/Family Expectation, Pertinant Lab Results Recommendation: Barrier(s) to disposition, Recommendation based on pending studies, treatments, or consults S.B.A.RJose R Report Given to: Dr. Kee Perez Repor Time: 21:58
[2017-10-13 19:52] LABS: Basophils % 0.2 %; Eosinophils # 0.2 K/mcL (0.0-0.6); Eosinophils % 3.4 %; Hematocrit 35.2 % (35.3-44.9); Hemoglobin 11.1 g/dL (11.5-15.4); Immature Granulocytes % 0.3 % (0-4); Lymphocytes # 1.9 K/mcL (0.6-4.6); Lymphocytes % 30.5 %; Mean Corpuscular HGB Conc 31.5 g/dL (31.6-35.5); Mean Corpuscular Hemoglobin 26.6 pg (28.0-33.3); Mean Corpuscular Volume 84.4 fL (83.0-100.0); Mean Platelet Volume 9.5 fL (9.4-12.4); Monocytes # 0.5 K/mcL (0.0-1.3); Monocytes % 8.3 %; Neutrophils # 3.5 K/mcL (1.6-8.9); Platelet Count 194 K/mcL (140-400); Red Blood Count 4.17 M/mcL (3.82-4.97); Red Cell Distribution Width 17.5 % (11.5-14.5); Segmented Neutrophils % 57.3 %
[2017-10-13 21:30] LABS: BUN/Creatinine Ratio 17 (6-26); Blood Urea Nitrogen 13 mg/dL (7-20); Carbon Dioxide 27 mEq/L (19-29); Chloride 106 mEq/L (98-109); Glucose 126 mg/dL (70-99); INR 2.1; Osmolality,Calculated 296 (280-300); Potassium 3.2 mEq/L (3.5-4.5); Prothrombin Time 22.5 Seconds (9.4-12.1); Sodium 142 mEq/L (136-145); eGFR For African Americans > 60 (> 60); eGFR For Non-African Americans > 60 (> 60)
[2017-10-13] MEDS ORDERED: Acetaminophen 325 MG TABLET PO PRN (22:06)
[2017-10-13] MEDS ORDERED: *HR* Morphine 2 MG/ML SYRINGE IVP PRN (22:06)
[2017-10-13] MEDS ORDERED: *HR* HYDROcodone/Acet 5/325 mg TABLET PO PRN (22:06)
[2017-10-13] MEDS ORDERED: Naloxone 0.4 MG/ML INJ IVP PRN (22:06)
[2017-10-13] MEDS ORDERED: Ondansetron 4 MG/2 ML VIAL IVP PRN (22:06)
[2017-10-13] MEDS ORDERED: Ondansetron ODT 4 MG TAB.RAPDIS PO PRN (22:07)
[2017-10-13] MEDS ORDERED: Albuterol 2.5 MG/3 ML NEBULIZER IH PRN (22:07)
[2017-10-13] MEDS ORDERED: 0.9 % Sodium Chloride 1,000 ML IVC SCH (23:15)
--- NOTE | 2017-10-13 23:54 | Internal Med History&Physical ---
Date of Encounter: 10/14/17 Time of Encounter: 23:51 Assessment and Plan (1) Coagulopathy Current visit: Yes Status: Acute INR >2 on presentation patient is on Xarelto for Afib and hx of PE and having continuous bleeding from a lesion on her anterior tongue She is a heavy smoker and i suspect this lesion is SCC ENT has been consulted by ER and states they will see the patient in the morning Type and screen done Monitor HB q6h Give 2 units FFP for INR reversal Continue to hold Xarelto Patient is protecting her airway, denies shortness of breath above baseline and is at her baseline O2 requirement She is high risk of aspiration of blood contents and risk of uncontrollable bleeding Continue close monitoring (2) Hemorrhage of tongue Current visit: Yes Status: Acute As above (3) Atrial fibrillation Current visit: Yes Status: Chronic HR controlled Continue BB Hold Xarelto Qualifiers: Atrial fibrillation type: paroxysmal Qualified Code(s): I48.0 - Paroxysmal atrial fibrillation (4) COPD (chronic obstructive pulmonary disease) Current visit: Yes Status: Chronic Not in exacerbation at this time Duonebs prn Qualifiers: COPD type: unspecified COPD Qualified Code(s): J44.9 - Chronic obstructive pulmonary disease, unspecified (5) Peripheral vascular disease Current visit: Yes Status: Chronic Chronic, hold Plavix due to uncontrolled bleeding on the tongue and suspected need for procedure a.m (6) HTN (hypertension) Current visit: Yes Status: Chronic Continue home meds Qualifiers: Hypertension type: essential hypertension Qualified Code(s): I10 - Essential (primary) hypertension (7) HLD (hyperlipidemia) Current visit: Yes Status: Chronic Continue home meds Qualifiers: Hyperlipidemia type: unspecified Qualified Code(s): E78.5 - Hyperlipidemia , unspecified (8) Type 2 diabetes mellitus Current visit: Yes Status: Chronic Hold metformin SSI for now NPO status FS q6h Qualifiers: Diabetes mellitus complication status: with unspecified complications Diabetes mellitus oysterman insulin use: without oysterman use Qualified Code( s): E11.8 - Type 2 diabetes mellitus with unspecified complications (9) Chronic diastolic (congestive) heart failure Current visit: Yes Status: Chronic Euvolemic for now (10) AAA (abdominal aortic aneurysm) without rupture Current visit: No Status: Acute (11) Tobacco abuse Current visit: Yes Status: Chronic Cessation counselling NRT prn (12) DVT prophylaxis Current visit: Yes Status: Acute EPCDs, patient with active bleed Internal Medicine - H&P: HPI Chief complaint: Bleeding tongue Admitted From: Home Plans for Post Hospital Care: Home History of present illness: Ms. Costa is a 66 year old female Seen and examined at the bedside with her sisters She has been having intermittent bleeding from her tongue since 2 weeks ago She however, did not present because it stopped spontanepusly. The bleeding has been profuse and continuous since this afternoon, hence her presentation to the ER. She is on Xarelto for Aib She has >40 pack year hx of smoking. She denies cough or SOB worse than her baseline, she denies hemoptysis but reports the bleeding on her tongue started after a violent cough She had significant PAD/cardiac disease due to her heavy smoking No GI symptoms, stool is black and brown sometimes but no gross bleeding ENT was consulted by ER after use of trexanimic acid with some resolution, ENT stated patient is stable and they will see her in the morning At my time of review, patient continues to bleed profusely and I recommended a STAT ENT review, ER physicisn/resident Dr. Kelly reports ENT states patient will be seen in the morning, she is protecting her airway and is hemodynamically stable at this time Her INR on arrival is 2.1 We will give patient FFP and monitor closely She denies personal or significant family hx of malignancy Low threshold of transfer out if bleeding becomes uncontrolled, patient has hemodynamic stability and ENT is till unavailable Plan of care discussed with patient and her sisters at the bedside Past Med Surg Social Fam HX - Past Medical History Medical history: arthritis, atrial fibrillation, CHF, COPD, coronary artery disease, DVT, hyperlipidemia, hypertension, myocardial infarction, peripheral artery disease, other Psychiatric history: anxiety, depression - Past Surgical History Surgical History: angioplasty/stent, cholecystectomy, hysterectomy, knee replacement, other, vascular surgery, LE bypass - Social History Smoking Status: Current every day smoker Smokeless Tobacco Status: No Alcohol use: none Drug use: none - Family History Mother Adopted: No Living Status: Hx Family Cardiac Disorders: Yes Hx Family Respiratory Disorders: Yes Hx Family Cancer: No Hx Family GI Disorders: No Hx Family Endocrine Disorder: Yes Hx Family Neuromuscular Disorders: No Hx Family Neurologic Disorders: No Hx Family HEENT Disorders: No Hx Family Autoimmune Disorders: No Father Adopted: No Living Status: Hx Family Cardiac Disorders: Yes Hx Family Cancer: Yes (Prostate) Hx Family Endocrine Disorder: Yes (DM) Internal Medicine - H&P: Meds Albuterol Sulfate [Albuterol Inhaler] 2 puff IH Q4H PRN 10/22/16 [History] Furosemide [Lasix] 20 mg PO DAILY 10/22/16 [History] Gabapentin 600 mg PO TID 10/22/16 [History] Isosorbide DInitrate [Isosorbide Dinitrate] 30 mg PO BID 10/22/16 [History] Ranolazine [Ranexa] 500 mg PO BID 30 Days tab.er.12h 10/22/16 [Rx] Rivaroxaban [Xarelto] 20 mg PO DAILY 10/22/16 [History] Atorvastatin Calcium [Lipitor] 80 mg PO HS 02/16/17 [History] clonazePAM [Klonopin] 1 mg PO TID PRN 02/16/17 [History] Metformin HCl [Glucophage] 1,000 mg PO BID 05/11/17 [History] Metoprolol [Lopressor] 25 mg PO BID 05/11/17 [History] Lipase/Protease/Amylase [Celeste Healy 12,000 Units Capsule] 1 each PO AD 08/15/17 [ History] Lipase/Protease/Amylase [Celeste Healy 12,000 Units Capsule] 2 each PO TIDWM [History] Omeprazole [PriLOSEC] 40 mg PO BID #60 cap 08/18/17 [Rx] Oxycodone HCl/Acetaminophen [Percocet 5-325 mg Tablet] 1 each PO Q8HR PRN #24 tablet 08/18/17 [Rx] Sucralfate [Carafate] 1 gm PO 0730,1630 #30 tablet 08/18/17 [Rx] Albuterol Neb [Proventil Neb] 2.5 mg IH TID PRN 10/13/17 [History] Ondansetron [Zofran ODT] 8 mg PO Q8H PRN 10/13/17 [History] 3 Allergy/AdvReac Type Severity Reaction Status Date / Time No Known Allergies Allergy Verified 07/14/17 17:15 All Systems PM: A 10-system review of systems was performed and is negative for pertinent findings except as documented above in the HPI. - Constitutional Constitutional: as per HPI - EENT Eyes: as per HPI Ears: as per HPI Nose, mouth and throat: as per HPI - Cardiovascular Cardiovascular ROS IM: as per HPI - Respiratory Respiratory: as per HPI - Gastrointestinal Gastrointestinal: as per HPI - Genitourinary Genitourinary: as per HPI - Musculoskeletal Musculoskeletal ROS IM: as per HPI - Integumentary Integumentary IM: as per HPI - Neurological Neurological ROS: as per HPI - Hematologic/Lymphatic Hematologic/Lymphatic: as per HPI - Constitutional Vitals: Temp Pulse Resp BP Pulse Ox 97.4 F L 53 18 144/86 94 10/13/17 19:27 10/13/17 22:08 10/13/17 22:08 10/13/17 22:08 10/13/17 22:08 VSS, Not in distress Profusely bleeding from anterior surface of her tongue with a visible black lesion on her tongue being the focus Chest is CTAB HS S1, S2, abdomen is benign NO pedal edema Internal Med - H&P Results - Labs CBC & Chem 7: 10/13/17 19:43 10/13/17 19:43
[2017-10-14] MEDS: clonazePAM 0.5 MG TABLET PO PRN ×2 (00:26→16:52)
[2017-10-14] MEDS: Ranolazine 500 MG TAB.ER.12H PO SCH ×2 (00:26→09:07)
[2017-10-14] MEDS: Gabapentin 300 MG CAPSULE PO SCH ×3 (00:26→16:45)
[2017-10-14] MEDS ORDERED: Potassium Chloride 40 MEQ, Lidocaine 1% 2 ML in D5% in Water 500 ML IVPB ONE (01:30)
[2017-10-14] MEDS: *HR* OxyCODONE/APAP 5/325 TABLET PO PRN ×2 (01:36→09:45)
[2017-10-14] MEDS ORDERED: 0.9 % Sodium Chloride 250 ML ONE (05:24)
[2017-10-14 06:26] LABS: Basophils % 0.4 %; Eosinophils # 0.2 K/mcL (0.0-0.6); Eosinophils % 4.5 %; Hematocrit 32.5 % (35.3-44.9); Hemoglobin 10.1 g/dL (11.5-15.4); Immature Granulocytes % 0.4 % (0-4); Lymphocytes # 1.5 K/mcL (0.6-4.6); Lymphocytes % 28.7 %; Mean Corpuscular HGB Conc 31.1 g/dL (31.6-35.5); Mean Corpuscular Hemoglobin 26.2 pg (28.0-33.3); Mean Corpuscular Volume 84.4 fL (83.0-100.0); Mean Platelet Volume 9.7 fL (9.4-12.4); Monocytes # 0.4 K/mcL (0.0-1.3); Monocytes % 8.4 %; Neutrophils # 2.9 K/mcL (1.6-8.9); Platelet Count 183 K/mcL (140-400); Red Blood Count 3.85 M/mcL (3.82-4.97); Red Cell Distribution Width 17.6 % (11.5-14.5); Segmented Neutrophils % 57.6 %
[2017-10-14 06:32] LABS: INR 1.5; Prothrombin Time 16.7 Seconds (9.4-12.1)
[2017-10-14 06:35] LABS: Activated Partial Thrombo Time 34.5 Seconds (26.0-36.0)
[2017-10-14 06:38] LABS: BUN/Creatinine Ratio 16 (6-26); Blood Urea Nitrogen 10 mg/dL (7-20); Calcium 8.6 mg/dL (8.6-10.8); Carbon Dioxide 28 mEq/L (19-29); Chloride 107 mEq/L (98-109); Glucose 135 mg/dL (70-99); Osmolality,Calculated 293 (280-300); Potassium 3.8 mEq/L (3.5-4.5); Sodium 141 mEq/L (136-145); eGFR For African Americans > 60 (> 60); eGFR For Non-African Americans > 60 (> 60)
[2017-10-14] MEDS ORDERED: Furosemide 20 MG TABLET PO SCH (09:00)
[2017-10-14] MEDS: Sucralfate 1 GM TABLET PO SCH ×2 (09:07→16:45)
[2017-10-14 11:00] LABS: Hematocrit 32.1 % (35.3-44.9); Hemoglobin 10.2 g/dL (11.5-15.4)
--- NOTE | 2017-10-14 12:30 | Internal Med Progress Note ---
<Magdaleno Gauthier - Last Filed: 10/14/17 13:08> Date of Encounter: 10/14/17 Time of Encounter: 12:26 - Assessment and plan (1) Coagulopathy Current Visit: Yes Status: Acute Assessment and plan: INR >2 on presentation patient is on Xarelto for Afib and hx of PE and having continuous bleeding from a lesion on her anterior tongue She is a heavy smoker, suspect this lesion is SCC Type and screen done Monitor HB q6h Given 1 unit FFP for INR reversal, second unit on hold if needed Continue to hold Xarelto Patient is protecting her airway, denies shortness of breath above baseline and is at her baseline O2 requirement She is high risk of aspiration of blood contents and risk of uncontrollable bleeding Continue close monitoring ENT has been consulted by ER and states they will see the patient today (2) Hemorrhage of tongue Current Visit: Yes Status: Acute Assessment and plan: As above (3) Atrial fibrillation Current Visit: Yes Status: Chronic Assessment and plan: HR controlled Continue BB Hold Xarelto Qualifiers: Atrial fibrillation type: paroxysmal Qualified Code(s): I48.0 - Paroxysmal atrial fibrillation (4) AAA (abdominal aortic aneurysm) without rupture Current Visit: No Status: Chronic Assessment and plan: 04/14/17 CTA revealed fusiform infrarenal aortic aneurysm measuring maximally 33 mm compared with 25 mm previously. Continue to monitor (5) Chronic diastolic (congestive) heart failure Current Visit: Yes Status: Chronic Assessment and plan: Euvolemic now (6) COPD (chronic obstructive pulmonary disease) Current Visit: Yes Status: Chronic Assessment and plan: Not in exacerbation at this time [place] prn Qualifiers: COPD type: unspecified COPD Qualified Code(s): J44.9 - Chronic obstructive pulmonary disease, unspecified (7) HTN (hypertension) Current Visit: Yes Status: Chronic Assessment and plan: Continue home meds Qualifiers: Hypertension type: essential hypertension Qualified Code(s): I10 - Essential (primary) hypertension (8) HLD (hyperlipidemia) Current Visit: Yes Status: Chronic Assessment and plan: Continue home meds Qualifiers: Hyperlipidemia type: unspecified Qualified Code(s): E78.5 - Hyperlipidemia , unspecified (9) Peripheral vascular disease Current Visit: Yes Status: Chronic Assessment and plan: Chronic, hold Plavix due to uncontrolled bleeding on the tongue and possible need for ENT procedure (10) Tobacco abuse Current Visit: Yes Status: Chronic Assessment and plan: Cessation counselling NRT prn (11) Type 2 diabetes mellitus Current Visit: Yes Status: Chronic Assessment and plan: Hold metformin SSI for now NPO status FS q6h Qualifiers: Diabetes mellitus complication status: with unspecified complications Diabetes mellitus senior living insulin use: without senior living use Qualified Code( s): E11.8 - Type 2 diabetes mellitus with unspecified complications (12) DVT prophylaxis Current Visit: Yes Status: Acute Assessment and plan: EPCDs, patient with active bleed - Subjective Interval history: Patient seen and examined. Patient reports decreased bleeding from tongue. Patient received 1 unit of FFP and HGB remains stable. Awaiting ENT evaluation. - Constitutional Vitals: Temp Pulse Resp BP Pulse Ox 97.7 F 58 16 105/60 94 10/14/17 09:42 10/14/17 09:42 10/14/17 09:42 10/14/17 09:42 10/14/17 07:09 General appearance: Present: cooperative, A&O X 3, no acute distress, answers questions appropriately - Head Head exam: Present: atraumatic, normocephalic - Eye Eye exam: Present: PERRL, conjuntiva pink, sclera anicteric Pupils: Present: PERRL - ENT ENT exam: Present: mucous membranes dry Additional comments: No active bleeding from anterior surface of her tongue, 5mm black scab on her tongue being the focus - Neck Neck exam general surgery: Present: supple, trachea midline. Absent: lymphadenopathy - Respiratory Respiratory exam: Present: CTAB. Absent: accessory muscle use, rales, rhonchi, wheezes - Cardiovascular Cardiovascular exam: Present: irregular rhythm, +S1, +S2. Absent: diastolic murmur, gallop, rubs, systolic murmur - GI/Abdominal GI/Abdominal exam: Present: normal bowel sounds, soft, no peritoneal signs. Absent: distended, tenderness - Additional comments: no reyez - Extremities Exam Extremities exam: Present: warm, radial pulses palpable and symmetrical. Absent : calf tenderness, cyanotic, pedal edema - Back Exam Back exam: Present: normal inspection. Absent: paraspinal tenderness, tenderness - Neurological Exam Neurological exam: Present: CN II-XII intact, oriented X3, no focal deficits. Absent: pronater drift, facial droop, speech deficit - Psychiatric Psychiatric exam: Present: anxious, flat affect - Skin Skin exam: Present: dry, intact, normal color, warm Internal Medicine: Result - Labs CBC & Chem 7: 10/14/17 10:10 10/14/17 05:25 Labs: Short CBC 10/14/17 10/14/17 Range/Units 05:25 10:10 WBC 5.1 (4.3-11.1) K/mcL Hgb 10.1 L 10.2 L (11.5-15.4) g/dL Hct 32.5 L 32.1 L (35.3-44.9) % Plt Count 183 (140-400) K/mcL Neutrophils # 2.9 (1.6-8.9) K/mcL BMP 10/14/17 05:25 Sodium 141 Potassium 3.8 Chloride 107 Carbon Dioxide 28 BUN 10 Creatinine 0.62 Glucose 135 H Calcium 8.6 - ABG Interpretation ABG results: PT/INR, D-dimer PT 16.7 Seconds (9.4-12.1) H 10/14/17 05:25 - Pulse Oximetry Interpretation Digit-Finger Pulse Oximetry Readin (2L O2 via NC) Consult Discharge Plan - Plan Referrals: Inder Izaguirre DO [Primary Care Provider] - <Arnav Gudino H - Last Filed: 10/14/17 13:15> Date of Encounter: 10/14/17 - Constitutional Vitals: Temp Pulse Resp BP Pulse Ox 97.7 F 58 16 105/60 94 10/14/17 09:42 10/14/17 09:42 10/14/17 09:42 10/14/17 09:42 10/14/17 07:09 Internal Medicine: Result - Labs CBC & Chem 7: 10/14/17 10:10 10/14/17 05:25 Labs: Short CBC 10/14/17 10/14/17 Range/Units 05:25 10:10 WBC 5.1 (4.3-11.1) K/mcL Hgb 10.1 L 10.2 L (11.5-15.4) g/dL Hct 32.5 L 32.1 L (35.3-44.9) % Plt Count 183 (140-400) K/mcL Neutrophils # 2.9 (1.6-8.9) K/mcL BMP 10/14/17 05:25 Sodium 141 Potassium 3.8 Chloride 107 Carbon Dioxide 28 BUN 10 Creatinine 0.62 Glucose 135 H Calcium 8.6 - ABG Interpretation ABG results: PT/INR, D-dimer PT 16.7 Seconds (9.4-12.1) H 10/14/17 05:25 - Attending Attestation ENT recommendations appreciated, consider biopsy I examined this patient and my medical decision-making was reviewed with the Resident Physician. I agree with the documented findings, disposition and treatment plan as described except to the extent set forth below.
--- NOTE | 2017-10-14 13:53 | Discharge Summary ---
<Magdaleno Gauthier - Last Filed: 10/14/17 13:34> Date of Encounter: 10/14/17 Time of Encounter: 13:35 - Discharge Diagnosis (1) Coagulopathy Priority: Primary Status: Acute (2) Hemorrhage of tongue Priority: Primary Status: Acute (3) Atrial fibrillation Priority: Secondary Status: Chronic Qualifiers: Atrial fibrillation type: paroxysmal Qualified Code(s): I48.0 - Paroxysmal atrial fibrillation (4) AAA (abdominal aortic aneurysm) without rupture Priority: Secondary Status: Chronic (5) Chronic diastolic (congestive) heart failure Priority: Secondary Status: Chronic (6) COPD (chronic obstructive pulmonary disease) Priority: Secondary Status: Chronic Qualifiers: COPD type: unspecified COPD Qualified Code(s): J44.9 - Chronic obstructive pulmonary disease, unspecified (7) HTN (hypertension) Priority: Secondary Status: Chronic Qualifiers: Hypertension type: essential hypertension Qualified Code(s): I10 - Essential (primary) hypertension (8) HLD (hyperlipidemia) Priority: Secondary Status: Chronic Qualifiers: Hyperlipidemia type: unspecified Qualified Code(s): E78.5 - Hyperlipidemia , unspecified (9) Peripheral vascular disease Priority: Secondary Status: Chronic (10) Tobacco abuse Priority: Secondary Status: Chronic (11) Type 2 diabetes mellitus Priority: Secondary Status: Chronic Qualifiers: Diabetes mellitus complication status: with unspecified complications Diabetes mellitus fpc insulin use: without fpc use Qualified Code( s): E11.8 - Type 2 diabetes mellitus with unspecified complications (12) DVT prophylaxis Priority: Secondary Status: Acute - Discharge Medications Home Medications: Albuterol Sulfate [Albuterol Inhaler] 2 puff IH Q4H PRN 10/22/16 [History] Furosemide [Lasix] 20 mg PO DAILY 10/22/16 [History] Gabapentin 600 mg PO TID 10/22/16 [History] Isosorbide DInitrate [Isosorbide Dinitrate] 30 mg PO BID 10/22/16 [History] Ranolazine [Ranexa] 500 mg PO BID 30 Days tab.er.12h 10/22/16 [Rx] Rivaroxaban [Xarelto] 20 mg PO DAILY 10/22/16 [History] Atorvastatin Calcium [Lipitor] 80 mg PO HS 02/16/17 [History] clonazePAM [Klonopin] 1 mg PO TID PRN 02/16/17 [History] Metformin HCl [Glucophage] 1,000 mg PO BID 05/11/17 [History] Metoprolol [Lopressor] 25 mg PO BID 05/11/17 [History] Lipase/Protease/Amylase [Celeste Healy 12,000 Units Capsule] 1 each PO AD 08/15/17 [ History] Lipase/Protease/Amylase [Celeste Healy 12,000 Units Capsule] 2 each PO TIDWM [History] Omeprazole [PriLOSEC] 40 mg PO BID #60 cap 08/18/17 [Rx] Oxycodone HCl/Acetaminophen [Percocet 5-325 mg Tablet] 1 each PO Q8HR PRN #24 tablet 08/18/17 [Rx] Sucralfate [Carafate] 1 gm PO 0730,1630 #30 tablet 08/18/17 [Rx] Albuterol Neb [Proventil Neb] 2.5 mg IH TID PRN 10/13/17 [History] Acetaminophen [Tylenol] 650 mg PO Q6HR PRN tablet 10/14/17 [Rx] Allergies/Adverse Reactions: 3 Allergy/AdvReac Type Severity Reaction Status Date / Time No Known Allergies Allergy Verified 07/14/17 17:15 Date of admission: 10/13/17 21:59 Primary care physician: Inder Izaguirre DO Consults: ENT Discharging clinician: Magdaleno Gauthier Anticipated date of discharge: 10/14/17 - Patient Status Disposition: Home, Self-Care Condition: Good Functional capacity at discharge: independent ambulation Overall status at discharge: patient is back to baseline - Discharge Instructions Follow Up With: Albert Bell DO [Partnered Physician] - (Please call [facility] office for a follow up appointment in 7-10 days for pathology and wound check. request for a appoinment sent. ) Inder Izaguirre DO [Primary Care Provider] - Additional Instructions: Resume Xarelto Follow up with ENT in office as scheduled for biopsy results Return to the ED if tongue restarts to bleed despite applying pressure Stop smoking - Diet and Activity Activity: resume usual activities as tolerated Diet: advance to your usual diet Hospital course: Ms. Costa is a 66 year old female with a PMH of PAD/cardiac disease due to her heavy smoking and on Xarelto for A fib who presented having intermittent bleeding from her tongue for 2 weeks ago. She however, did not present because it stopped spontaneously. The bleeding has been profuse and continuous since this afternoon, hence her presentation to the ER. She has >40 pack year hx of smoking. She denies personal or significant family hx of malignancy. She denied cough or SOB worse than her baseline, she denied hemoptysis but reports the bleeding on her tongue started after a violent cough. No GI symptoms, stool is black and brown sometimes but no gross bleeding. Her INR decreased from 2.1 to 1.5 after 1 unit FFP given. HGB was stable. ENT was consulted by ER after use of trexanimic acid with some resolution. ENT peformed a biopsy of the lesion at bedside and recommended monitoring her for a few hours then discharging with outpatient follow up and resuming Xarelto. She was protecting her airway and hemodynamically stable. Patient instructed to Resume Xarelto and follow up with ENT in office as scheduled for biopsy results. Return to the ED if tongue restarts to bleed despite applying pressure and stop smoking. Patient and family understood, agreed to, and repeated the plan. - Time Spent with Patient Total time spent providing and/or coordinating discharge services: - Constitutional Vitals: Temp Pulse Resp BP Pulse Ox 97.7 F 58 16 105/60 94 10/14/17 09:42 10/14/17 09:42 10/14/17 09:42 10/14/17 09:42 10/14/17 07:09 General appearance: Present: cooperative, A&O X 3, no acute distress, answers questions appropriately Exam: - Head Head exam: Present: atraumatic, normocephalic - Eye Eye exam: Present: PERRL, conjuntiva pink, sclera anicteric Pupils: Present: PERRL - ENT ENT exam: Present: mucous membranes dry Additional comments: No active bleeding from anterior surface of her tongue, 5mm black scab on her tongue being the focus - Neck Neck exam general surgery: Present: supple, trachea midline. Absent: lymphadenopathy - Respiratory Respiratory exam: Present: CTAB. Absent: accessory muscle use, rales, rhonchi, wheezes - Cardiovascular Cardiovascular exam: Present: irregular rhythm, +S1, +S2. Absent: diastolic murmur, gallop, rubs, systolic murmur - GI/Abdominal GI/Abdominal exam: Present: normal bowel sounds, soft, no peritoneal signs. Absent: distended, tenderness - Additional comments: no reyez - Extremities Exam Extremities exam: Present: warm, radial pulses palpable and symmetrical. Absent : calf tenderness, cyanotic, pedal edema - Back Exam Back exam: Present: normal inspection. Absent: paraspinal tenderness, tenderness - Neurological Exam Neurological exam: Present: CN II-XII intact, oriented X3, no focal deficits. Absent: pronater drift, facial droop, speech deficit - Psychiatric Psychiatric exam: Present: anxious, flat affect - Skin Skin exam: Present: dry, intact, normal color, warm <Arnav Gudino H - Last Filed: 10/14/17 15:45> Date of Encounter: 10/14/17 Date of admission: 10/13/17 21:59 Primary care physician: Inder Izaguirre DO [facility] course: Ms. Costa is a 66 year old female - Time Spent with Patient Total time spent providing and/or coordinating discharge services: - Constitutional Vitals: Temp Pulse Resp BP Pulse Ox 97.7 F 88 18 126/78 96 10/14/17 09:42 10/14/17 15:00 10/14/17 15:00 10/14/17 15:00 10/14/17 15:00 - Attending Attestation Lingual lesion/ulcer with arterial hemorrhage, concerning for malignancy versus other etiologies ENT follow-up to review biopsy report Safe to continue Xarelto according to ENT Okay to discharge Time spent on this discharge 40 minutes I examined this patient and my medical decision-making was reviewed with the Resident Physician. I agree with the documented findings, disposition and treatment plan as described except to the extent set forth below.
--- NOTE | 2017-10-14 13:59 | ENT - Consult Note ---
Date of Encounter: 10/14/17 Time of Encounter: 13:56 Assessment and Plan (1) Tongue lesion Current Visit: Yes Status: Acute s/p biopsy at bedside today. Pt tolerated this well. Hemostasis with local vasoconstriction, AgNO3 cautery, and sutures, which was good at the end of the procedure. May resume normal diet. Recommend 3 hours of additional observation to check for any tongue swelling. Ok to DC to home if tolerating pain, diet, and minimal swelling. Consider steroid dose if swelling is significant Follow up with [facility] in 7-10 days for pathology and wound check. Lesion appears to be a telangectasia or superficial wound, but malignancy is also a concern to rule out. May resume normal meds including Xarelto with checks to keep from becoming supratherapeutic. (2) Hemorrhage of tongue Current Visit: Yes Status: Acute (3) Atrial fibrillation Current Visit: Yes Status: Chronic Qualifiers: Atrial fibrillation type: paroxysmal Qualified Code(s): I48.0 - Paroxysmal atrial fibrillation History of Present Illness Consult date: 10/14/17 Reason for ENT Consult: other (tongue lesion and bleeding) History of present illness: Pt is a 66 yo female with A fib and severe PVD disease on Xarelto who presents with a dorsal bleeding tongue lesion that has bled on and off for about a month. Reports heavy bleeding at times that has been pulsatile. She was admitted via the ED last night, given FFP, INR is 1.5 from 2 and now hemostatic. ENT was asked to evaluate for possible biopsy vs hemostasis control. Denies hx of tongue lesions, cancer, etc. Denies personal hx of cancer. Admits to hoarse voice that is unchanged. Lifelong smoker, prior heavy ETOH use. Denies neck masses. Denies coughing, hemoptysis, ear pain, dysphagia. Past Med Surg Social Fam HX - Past Medical History Medical history: arthritis, atrial fibrillation, CHF, COPD, coronary artery disease, DVT, hyperlipidemia, hypertension, myocardial infarction, peripheral artery disease, other Psychiatric history: anxiety, depression - Past Surgical History Surgical History: angioplasty/stent, cholecystectomy, hysterectomy, knee replacement, other, vascular surgery, LE bypass - Social History Smoking Status: Current every day smoker Packs per day: 1 Smokeless Tobacco Status: No Alcohol use: none Drug use: none - Family History Mother Adopted: No Living Status: Hx Family Cardiac Disorders: Yes Hx Family Respiratory Disorders: Yes Hx Family Cancer: No Hx Family GI Disorders: No Hx Family Endocrine Disorder: Yes Hx Family Neuromuscular Disorders: No Hx Family Neurologic Disorders: No Hx Family HEENT Disorders: No Hx Family Autoimmune Disorders: No Father Adopted: No Living Status: Hx Family Cardiac Disorders: Yes Hx Family Cancer: Yes (Prostate) Hx Family Endocrine Disorder: Yes (DM) Medications and Allergies Albuterol Sulfate [Albuterol Inhaler] 2 puff IH Q4H PRN 10/22/16 [History] Furosemide [Lasix] 20 mg PO DAILY 10/22/16 [History] Gabapentin 600 mg PO TID 10/22/16 [History] Isosorbide DInitrate [Isosorbide Dinitrate] 30 mg PO BID 10/22/16 [History] Ranolazine [Ranexa] 500 mg PO BID 30 Days tab.er.12h 10/22/16 [Rx] Rivaroxaban [Xarelto] 20 mg PO DAILY 10/22/16 [History] Atorvastatin Calcium [Lipitor] 80 mg PO HS 02/16/17 [History] clonazePAM [Klonopin] 1 mg PO TID PRN 02/16/17 [History] Metformin HCl [Glucophage] 1,000 mg PO BID 05/11/17 [History] Metoprolol [Lopressor] 25 mg PO BID 05/11/17 [History] Lipase/Protease/Amylase [Creon Dr 12,000 Units Capsule] 1 each PO AD 08/15/17 [ History] Lipase/Protease/Amylase [Creon Dr 12,000 Units Capsule] 2 each PO TIDWM [History] Omeprazole [PriLOSEC] 40 mg PO BID #60 cap 08/18/17 [Rx] Oxycodone HCl/Acetaminophen [Percocet 5-325 mg Tablet] 1 each PO Q8HR PRN #24 tablet 08/18/17 [Rx] Sucralfate [Carafate] 1 gm PO 0730,1630 #30 tablet 08/18/17 [Rx] Albuterol Neb [Proventil Neb] 2.5 mg IH TID PRN 10/13/17 [History] Acetaminophen [Tylenol] 650 mg PO Q6HR PRN tablet 10/14/17 [Rx] 3 Allergy/AdvReac Type Severity Reaction Status Date / Time No Known Allergies Allergy Verified 07/14/17 17:15 ENT - ROS All systems PM: reviewed and no additional remarkable complaints except as stated ENT Exam Initial Vital Signs Temp Pulse Resp BP Pulse Ox 97.4 F L 68 18 179/86 92 10/13/17 19:27 10/13/17 19:27 10/13/17 19:27 10/13/17 19:27 10/13/17 19:27 - General physical appearance well developed, well nourished, no distress, other (hoarse voice) - ENT normal pinna, normal nares, normal mucosa, Other (<1cm mid dorsal tongue lesion on left side of midline appears such as telangectasia with surrounding superficial ulceration. No palpable mass or tumor to the lesion or elsewhere in tongue. Poor dentition and dry mucosa but no other concerning oral exam findings. ) - Neck no masses, trachea midline, no lymphadectomy - Respiratory normal expansion, normal respiratory effort - Abdomen Abdomen: no distended - Integumentary no rash, no growths - Neurologic CN 2-12 grossly intact, normal coordination, normal sensation - Musculoskeletal other (moves all extremities) - Psychiatric oriented to time, oriented to person, oriented to place - Additional Findings Procedure note Preop dx: tongue lesion Postop dx: same Procedure: biopsy dorsal tongue lesion anesthesia: local 2ml 1% lidocaine with 1:100,000 epi Specimen: Dorsal tongue lesion Complications: none Procedure: After informed consent, the area was anesthetized with 2ml of local anesthetic. A punch biopsy was used to make an incision around the lesion which was then grasped with forceps and cut free from its base. It was then sent for routine pathology. The wound bed was then cauterized with AgNO3 with good hemostasis. 4-0 interrupted chromic sutures were then used to close the wound. She tolerated this well. Exam Initial Vital Signs Temp Pulse Resp BP Pulse Ox 97.4 F L 68 18 179/86 92 10/13/17 19:27 10/13/17 19:27 10/13/17 19:27 10/13/17 19:27 10/13/17 19:27 Results - Labs 10/14/17 10:10 10/14/17 05:25 Abnormal lab results Hgb 10.2 g/dL (11.5-15.4) L 10/14/17 10:10 Hct 32.1 % (35.3-44.9) L 10/14/17 10:10 MCH 26.2 pg (28.0-33.3) L 10/14/17 05:25 MCHC 31.1 g/dL (31.6-35.5) L 10/14/17 05:25 RDW 17.6 % (11.5-14.5) H 10/14/17 05:25 PT 16.7 Seconds (9.4-12.1) H 10/14/17 05:25 Glucose 135 mg/dL (70-99) H 10/14/17 05:25 Diabetes panel 10/14/17 Range/Units 05:25 Sodium 141 (136-145) mEq/L Potassium 3.8 (3.5-4.5) mEq/L Chloride 107 (98-109) mEq/L Carbon Dioxide 28 (19-29) mEq/L BUN 10 (7-20) mg/dL Creatinine 0.62 (0.57-1.11) mg/dL Glucose 135 H (70-99) mg/dL Calcium 8.6 (8.6-10.8) mg/dL Calcium panel 10/14/17 Range/Units 05:25 Calcium 8.6 (8.6-10.8) mg/dL Pituitary panel 10/14/17 Range/Units 05:25 Sodium 141 (136-145) mEq/L Potassium 3.8 (3.5-4.5) mEq/L Chloride 107 (98-109) mEq/L Carbon Dioxide 28 (19-29) mEq/L BUN 10 (7-20) mg/dL Creatinine 0.62 (0.57-1.11) mg/dL Glucose 135 H (70-99) mg/dL Calcium 8.6 (8.6-10.8) mg/dL Adrenal panel 10/14/17 Range/Units 05:25 Sodium 141 (136-145) mEq/L Potassium 3.8 (3.5-4.5) mEq/L Chloride 107 (98-109) mEq/L Carbon Dioxide 28 (19-29) mEq/L BUN 10 (7-20) mg/dL Creatinine 0.62 (0.57-1.11) mg/dL Glucose 135 H (70-99) mg/dL Calcium 8.6 (8.6-10.8) mg/dL All other labs normal. Consult Discharge Plan - Plan Additional Instructions: Resume Xarelto Follow up with ENT in office as scheduled for biopsy results Return to the ED if tongue restarts to bleed despite applying pressure Stop smoking Referrals: Inder Izaguirre DO [Primary Care Provider] - Albert Bell DO [Partnered Physician] - (Please call [facility] office for a follow up appointment in 7-10 days for pathology and wound check.)
[2017-10-14 15:40] VITALS: BP 126/78
[2017-10-14 16:02] LABS: Hematocrit 32.8 % (35.3-44.9); Hemoglobin 10.4 g/dL (11.5-15.4)
[2017-10-14] MEDS ORDERED: FLUARIX QUAD 2017-18 36MOS UP/PF 0.5 ML SYRINGE IM ONE (17:26)
== END 2017-10-14 18:30 | disposition home or self-care (01) ==
LOC: 3ANU 19:27 → EMEROO 19:27 → SUATTDRO 21:59 → 2NENU 22:11
PROVIDERS: ADMIT Internal Medicine; ATTEND Internal Medicine

== ENCOUNTER 2018-02-01 14:24 | Inpatient (IN) ==
--- NOTE | 2018-02-01 15:27 | Emergency Department Note ---
Disposition Clinical Impression: Lactic acidosis GI bleed Qualifiers: GI bleed type/associated pathology: melena Qualified Code(s): K92.1 - Melena Anemia Qualifiers: Anemia type: iron deficiency Iron deficiency anemia type: chronic blood loss Qualified Code(s): D50.0 - Iron deficiency anemia secondary to blood loss ( chronic) Disposition: Admitted As Inpatient Condition: Good Reasons to Return/Additional Instructions: Admitted as inpatient Referrals: Inder Izaguirre DO [Resident] - Forms: ED Satisfaction Letter Time of Disposition: 17:04 SOB HPI - General Chief Complaint: ED Shortness of Breath/Dyspnea Stated Complaint: CHRISTIANO Time Seen by Provider: 02/01/18 14:30 Source: patient Mode of arrival: EMS Limitations: no limitations Nursing Notes Reviewed: Yes Vital Signs Reviewed: Yes - History of Present Illness 67-year-old female presents to emergency room with complaint of shortness of breath 2 days. She was recently admitted to this facility and treated for an NSTEMI, bronchitis for which she was placed on aspirin, brillenta for GO placement on 01/24/18, and also takes Xarelto for her history of DVTs. She states that during this time she has been experiencing her chronic cough, no increased sputum production or changes. Denies any symptoms of orthopnea or paroxysmal nocturnal dyspnea. She states that she does have associated nausea as well as black stools which started a couple days after discharge. He states that the stools have remained dark however she is also noticing some bright red blood in the last couple of days. She had a colonoscopy a couple years ago which was only significant for polyps. Does admit to fatigue and weakness and this time and states that she has barely able to stand. She has not passed out, however does state that rising from a seated position is very difficult. Denies any use of iron supplementation or Pepto-Bismol. Pt Subjective Complaint: shortness of breath Onset (ago): day(s) - Related Data Home Medications Medication Instructions Recorded Confirmed Albuterol Sulfate [Albuterol 2 puff IH Q4H PRN 10/22/16 02/01/18 Inhaler] Furosemide [Lasix] 20 mg PO DAILY 10/22/16 02/01/18 Gabapentin 600 mg PO TID 10/22/16 02/01/18 Isosorbide DInitrate [Isosorbide 30 mg PO BID 10/22/16 02/01/18 Dinitrate] Rivaroxaban [Xarelto] 20 mg PO DAILY 10/22/16 02/01/18 Atorvastatin Calcium [Lipitor] 80 mg PO HS 02/16/17 02/01/18 Metformin HCl [Glucophage] 1,000 mg PO BID 05/11/17 02/01/18 Amlodipine Besylate 10 mg PO DAILY 01/21/18 02/01/18 Dicyclomine [Bentyl] 20 mg PO QID 01/21/18 02/01/18 Metoprolol Tartrate 50 mg PO BID 01/21/18 02/01/18 Ondansetron [Zofran ODT] 8 mg SL Q8H PRN 01/21/18 02/01/18 Venlafaxine HCl [Venlafaxine HCl 75 mg PO DAILY 01/21/18 02/01/18 ER] clonazePAM [Klonopin] 1 mg PO TID PRN 01/21/18 02/01/18 Oxygen 2.5 l NS AD 02/01/18 02/01/18 Previous Rx's Medication Instructions Recorded Ranolazine [Ranexa] 500 mg PO BID 30 Days tab.er.12h 10/22/16 Omeprazole [PriLOSEC] 40 mg PO BID #60 cap 08/18/17 Aspirin 81 mg PO DAILY #30 tab.chew 01/25/18 Ticagrelor [Brilinta] 90 mg PO BID #60 tablet 01/25/18 Allergies Allergy/AdvReac Type Severity Reaction Status Date / Time No Known Allergies Allergy Verified 01/21/18 11:53 All systems ED: reviewed and negative except as stated. Review of Systems: As Per HPI Past Medical History - Past Medical History Medical history: Reports: arthritis, atrial fibrillation, COPD, coronary artery disease, DVT, hyperlipidemia, hypertension, myocardial infarction, peripheral artery disease, other Surgical history: Reports: angioplasty/stent, cholecystectomy, hysterectomy, knee replacement, other, vascular surgery, LE bypass, LE vascular intervention Psychiatric history: Reports: anxiety, depression FURNITURE DECALS INSPECTOR history: Reports: no FURNITURE DECALS INSPECTOR history - Social History Smoking Status: Current every day smoker Smokeless Tobacco Status: No Alcohol use: Reports: none Drug use: Reports: none Physical Exam - General Limitations: no limitations General appearance: alert - Head Head exam: atraumatic, normocephalic, normal inspection - Eye Eye exam: Present: other (conjunctival pallor) - ENT ENT exam: normal exam, normal oropharynx, mucous membranes dry - Neck Neck exam: Present: normal inspection, full ROM, trachea midline - Chest Chest inspection: Present: normal inspection, symmetric chest wall rise - Respiratory Respiratory exam: Present: normal lung sounds bilaterally - Cardiovascular Cardiovascular exam: Present: regular rate, normal rhythm, normal heart sounds - Abdominal Exam Abdominal exam: Present: soft, tenderness, normal bowel sounds. Absent: distention, guarding, rebound, rigidity Abdominal tenderness: Present: LUQ, LLQ, epigastrium, suprapubic - Extremities Exam Extremities exam: Present: normal inspection, full ROM. Absent: tenderness, pedal edema - Neurological Exam Neurological exam: Present: alert, oriented X3 - Psychiatric Psychiatric exam: Present: normal affect, normal mood - Skin Skin exam: Present: warm, dry, intact, pallor Course Course Narrative: We will obtain basic labs of CBC, BMP, troponin, EKG, type and cross for suspected GI bleed. We will perform a stool occult blood test. Vital Signs Temperature 97.5 F L 02/01/18 14:33 Pulse Rate 72 02/01/18 14:33 Respiratory Rate 20 02/01/18 14:33 Blood Pressure 123/53 02/01/18 14:33 O2 Sat by Pulse Oximetry 100 02/01/18 14:33 Temperature 97.9 F 02/01/18 17:08 Pulse Rate 75 02/01/18 17:23 Respiratory Rate 14 02/01/18 17:23 Blood Pressure 133/70 02/01/18 17:23 O2 Sat by Pulse Oximetry 98 02/01/18 17:23 Oxygen Delivery Oxygen Delivery Nasal Cannula Shortness of Breath/Dyspnea - [facility] Narrative Medical decision making narrative: 67-year-old female presenting with melena, weakness, shortness of breath. Results were significant for critical hemoglobin of 4.5, elevated coagulation studies, lactic acid 7.9. We did order stat 2 units packed red blood cells, fresh frozen plasma and vitamin K. We did discuss this with the internal grinder who agrees with this decision and plan. We will contact the hospitalist for admission at this time. Discussed with hospitalist, agrees for admission at this time. He did request we consult gastroenterology, who recommended keeping the patient nothing by mouth and he will perform an esophagogastroduodenoscopy in the morning. - Lab Data Result diagrams: 02/01/18 15:08 02/01/18 15:08 Lab Results 02/01/18 02/01/18 02/01/18 Range/Units 15:08 15:08 15:08 WBC 12.6 H (4.3-11.1) K/mcL RBC 1.76 L (3.82-4.97) M/mcL Hgb 4.5 L* (11.5-15.4) g/dL Hct 15.1 L (35.3-44.9) % MCV 85.8 (83.0-100.0) fL MCH 25.6 L (28.0-33.3) pg MCHC 29.8 L (31.6-35.5) g/dL RDW 18.6 H (11.5-14.5) % Plt Count 320 (140-400) K/mcL MPV 9.5 (9.4-12.4) fL Immature Gran % 0.7 (0-4) % Seg Neutrophils % 79.7 % Lymphocytes % 13.3 % Monocytes % 4.1 % Eosinophils % 2.0 % Basophils % 0.2 % Neutrophils # 10.0 H (1.6-8.9) K/mcL Lymphocytes # 1.7 (0.6-4.6) K/mcL Monocytes # 0.5 (0.0-1.3) K/mcL Eosinophils # 0.3 (0.0-0.6) K/mcL Basophils # 0.0 (0.0-0.2) K/mcL Polychromasia 1+ A (Not Present) Hypochromasia Present A (Not Present) PT 43.3 H* (9.4-12.1) Seconds INR 3.9 APTT 38.3 H (26.0-36.0) Seconds Sodium 142 (136-145) mEq/L Potassium 3.6 (3.5-5.1) mEq/L Chloride 108 H (98-107) mEq/L Carbon Dioxide 22 L (23-29) mEq/L BUN 42 H (8-23) mg/dL Creatinine 0.81 (0.60-1.20) mg/dL Est GFR ( Amer) > 60 (> 60) Est GFR (Non-Af Amer) > 60 (> 60) BUN/Creatinine Ratio 52 H (6-26) Glucose 117 H (70-105) mg/dL Calculated Osmolality 306 H (280-300) Lactic Acid (0.5-2.2) mmol/L Calcium 9.2 (8.6-10.3) mg/dL Total Bilirubin 0.3 (0.3-1.0) mg/dL Direct Bilirubin 0.1 (0.0-0.2) mg/dL Indirect Bilirubin 0.2 (0.0-1.2) mg/dL AST 13 (13-39) Units/L ALT 10 (7-52) Units/L Alkaline Phosphatase 39 (34-104) Units/L Troponin I < 0.03 (< 0.04) ng/mL Serum Total Protein 5.9 L (6.4-8.9) g/dL Albumin 3.4 L (3.5-5.7) g/dL Globulin 2.5 (2.4-3.5) g/dL Albumin/Globulin Ratio 1.4 (1.1-2.2) Blood Type Antibody Screen Crossmatch 02/01/18 02/01/18 Range/Units 15:53 15:53 WBC (4.3-11.1) K/mcL RBC (3.82-4.97) M/mcL Hgb (11.5-15.4) g/dL Hct (35.3-44.9) % MCV (83.0-100.0) fL MCH (28.0-33.3) pg MCHC (31.6-35.5) g/dL RDW (11.5-14.5) % Plt Count (140-400) K/mcL MPV (9.4-12.4) fL Immature Gran % (0-4) % Seg Neutrophils % % Lymphocytes % % Monocytes % % Eosinophils % % Basophils % % Neutrophils # (1.6-8.9) K/mcL Lymphocytes # (0.6-4.6) K/mcL Monocytes # (0.0-1.3) K/mcL Eosinophils # (0.0-0.6) K/mcL Basophils # (0.0-0.2) K/mcL Polychromasia (Not Present) Hypochromasia (Not Present) PT (9.4-12.1) Seconds INR APTT (26.0-36.0) Seconds Sodium (136-145) mEq/L Potassium (3.5-5.1) mEq/L Chloride (98-107) mEq/L Carbon Dioxide (23-29) mEq/L BUN (8-23) mg/dL Creatinine (0.60-1.20) mg/dL Est GFR ( Amer) (> 60) Est GFR (Non-Af Amer) (> 60) BUN/Creatinine Ratio (6-26) Glucose (70-105) mg/dL Calculated Osmolality (280-300) Lactic Acid 7.6 H* (0.5-2.2) mmol/L Calcium (8.6-10.3) mg/dL Total Bilirubin (0.3-1.0) mg/dL Direct Bilirubin (0.0-0.2) mg/dL Indirect Bilirubin (0.0-1.2) mg/dL AST (13-39) Units/L ALT (7-52) Units/L Alkaline Phosphatase (34-104) Units/L Troponin I (< 0.04) ng/mL Serum Total Protein (6.4-8.9) g/dL Albumin (3.5-5.7) g/dL Globulin (2.4-3.5) g/dL Albumin/Globulin Ratio (1.1-2.2) Blood Type O POSITIVE Antibody Screen NEGATIVE Crossmatch See Detail
--- NOTE | 2018-02-01 15:49 | Emergency Department Note ---
START Narrative - START START: I examined this patient and my medical decision-making was reviewed with the ESE TEACHER/PA/Advanced Practice Nurse/Resident Physician. I agree with the documented findings, disposition and treatment plan as described except to the extent set forth below. I did see the patient spoke with her and examined her and she is extremely pale appearance. Does have a GI bleed. Will be started on Protonix. Type and screen has been ordered. I did review her EKG showing normal sinus rhythm with a rate of 63 and anterior lateral T-wave inversion and there is new T-wave inversion compared to previous EKG from January 25. The patient will be admitted to the hospital. Likely will require a transfusion. She does have shortness of breath at rest but no chest pain. [id number]
[2018-02-01 16:05] LABS: Hematocrit 15.1 % (35.3-44.9); Lymphocytes % 13.3 %; Mean Corpuscular HGB Conc 29.8 g/dL (31.6-35.5); Mean Corpuscular Hemoglobin 25.6 pg (28.0-33.3); Mean Corpuscular Volume 85.8 fL (83.0-100.0); Red Blood Count 1.76 M/mcL (3.82-4.97); Red Cell Distribution Width 18.6 % (11.5-14.5)
[2018-02-01 16:07] LABS: Basophils % 0.2 %; Eosinophils # 0.3 K/mcL (0.0-0.6); Immature Granulocytes % 0.7 % (0-4); Lymphocytes # 1.7 K/mcL (0.6-4.6); Mean Platelet Volume 9.5 fL (9.4-12.4); Monocytes # 0.5 K/mcL (0.0-1.3); Monocytes % 4.1 %; Platelet Count 320 K/mcL (140-400); Segmented Neutrophils % 79.7 %
[2018-02-01 16:13] LABS: Hemoglobin 4.5 g/dL (11.5-15.4); INR 3.9
[2018-02-01 16:15] LABS: Activated Partial Thrombo Time 38.3 Seconds (26.0-36.0)
[2018-02-01] MEDS ORDERED: Pantoprazole 40 MG VIAL IVP ONE (16:22)
[2018-02-01 16:25] LABS: BUN/Creatinine Ratio 52 (6-26); Blood Urea Nitrogen 42 mg/dL (8-23); Calcium 9.2 mg/dL (8.6-10.3); Carbon Dioxide 22 mEq/L (23-29); Chloride 108 mEq/L (98-107); Glucose 117 mg/dL (70-105); Osmolality,Calculated 306 (280-300); Potassium 3.6 mEq/L (3.5-5.1); Sodium 142 mEq/L (136-145); Troponin I < 0.03 ng/mL (< 0.04); eGFR For African Americans > 60 (> 60); eGFR For Non-African Americans > 60 (> 60)
[2018-02-01 16:27] LABS: Polychromasia 1+ (Not Present)
[2018-02-01 16:28] LABS: Hypochromasia Present (Not Present)
[2018-02-01 16:32] LABS: Prothrombin Time 43.3 Seconds (9.4-12.1)
[2018-02-01] MEDS ORDERED: *HR* Phytonadione 10 MG/ML AMPUL SQ ONE (16:56)
[2018-02-01] MEDS ORDERED: 0.9 % Sodium Chloride 250 ML IVC ONE (16:59)
[2018-02-01 17:14] LABS: Alanine Aminotransferase 10 Units/L (7-52); Albumin 3.4 g/dL (3.5-5.7); Albumin/Globulin Ratio 1.4 (1.1-2.2); Alkaline Phosphatase 39 Units/L (34-104); Aspartate Amino Transferase 13 Units/L (13-39); Bilirubin,Direct 0.1 mg/dL (0.0-0.2); Bilirubin,Indirect 0.2 mg/dL (0.0-1.2); Bilirubin,Total 0.3 mg/dL (0.3-1.0); Globulin 2.5 g/dL (2.4-3.5); Total Protein 5.9 g/dL (6.4-8.9)
[2018-02-01] MEDS ORDERED: NON-FORMULARY MEDICATION 1 EACH EACH (Oxygen [Oxygen] 2.5 L) NS SCH (19:45)
--- NOTE | 2018-02-01 20:42 | Internal Med History&Physical ---
<Shani Ricardo - Last Filed: 02/01/18 23:36> Date of Encounter: 02/01/18 Time of Encounter: 20:10 Assessment and Plan (1) GI bleed Current visit: Yes Status: Acute Patient reported black stools for 4 days with bright red blood around stool. She has had increased weakness, lightheadedness. Hgb 4.5 G.I. was called by ED. 2 units PRBC ordered, 1 unit plasma ordered. She had an NSTEMI 01/24/2018 with 1 stent placed, taking Brilinta and aspirin. History of A. fib taking Xarelto. Her last EGD was 08/17/2017 which showed erythematous mucosa in the stomach. Last colonoscopy was 07/17/2017 which showed 2 non-bleeding polyps. Vitals stable. INR 3.9 PT 43.3 typed and screened pending Plan: STAT abdominal CT, H&H q4, Protonix drip, G.I. following, transfuse PRBC as needed, NPO, IV plasmalyte Qualifiers: GI bleed type/associated pathology: melena Qualified Code(s): K92.1 - Melena (2) Blood loss anemia Current visit: No Status: Resolved Hgb 4.5, secondary to G.I. bleed H&H q4 (3) Lactic acid acidosis Current visit: Yes Status: Acute Lactic acid 7.6 likely secondary to G.I. bleed will continue to trend (4) Elevated WBC count Current visit: Yes Status: Acute WBC 12.6 most likely related to G.I. bleed will continue to monitor Qualifiers: Qualified Code(s): D72.829 - Elevated white blood cell count, unspecified (5) Coronary artery disease Current visit: Yes Status: Acute NSTEMI 01/24/2018 with one stent placed. History of prior SC with 3 stents placed at that time, total of 4 stents. She is taking Brilinta, aspirin, Imdur , Lipitor, metoprolol, amlodipine, Xarelto. Holding blood thinners due to G.I. bleed consult cardiology in a.m. about blood thinners in setting of G.I. bleed Qualifiers: Qualified Code(s): I25.10 - Atherosclerotic heart disease of [place] coronary artery without angina pectoris (6) History of pulmonary embolism Current visit: No Status: Chronic History of PE and bilateral DVT on anticoagulation with Xarelto. Holding Xarelto due to G.I. bleed (7) COPD (chronic obstructive pulmonary disease) Current visit: No Status: Chronic History of COPD on 2.5L oxygen and albuterol. Supplemental oxygen, albuterol Qualifiers: COPD type: unspecified COPD Qualified Code(s): J44.9 - Chronic obstructive pulmonary disease, unspecified (8) Tobacco abuse Current visit: No Status: Chronic Patient is a current smoker. She said her last cigarette was this morning. She was counseled on smoking cessation and was informed of the high morbidity with smoking and her history or 2 NSTEMI with stents. Denied wanting a nicotine patch. (9) Chronic atrial fibrillation Current visit: No Status: Chronic History of A fib taking Xarelto for anticoagulation and metoprolol for rate control. Holding Xarelto due to G.I. bleed (10) Type 2 diabetes mellitus Current visit: No Status: Chronic History of diabetes taking metformin. Low-dose sliding scale insulin Accu checks Qualifiers: Diabetes mellitus complication status: with unspecified complications Diabetes mellitus extermination supervisor insulin use: without extermination supervisor use Qualified Code( s): E11.8 - Type 2 diabetes mellitus with unspecified complications (11) DVT prophylaxis Current visit: No Status: Acute EPCD. No anticoagulation due to G.I. bleed Internal Medicine - H&P: HPI Chief complaint: Melena Admitted From: Emergency Dept Plans for Post Hospital Care: Home History of present illness: Ms. Costa is a 67 year old female PMH HTN, 2- NSTEMI with total 4 stents placed , PE, DVT, COPD, HLD, DM, a fib on anticoagulation who presented to [facility] complaining of increased weakness for the past 3 days. She stated that for the past 4 days she has had black stools. She reported lightheadedness, weakness, felt like passing out, nausea. She had black stools and bright red blood around stool every day except for today she has not had a bowel movement. She denies chest pain, shortness of breath, syncope, dysuria, hematuria, abdominal pain, vomiting. She fell yesterday do to the weakness but did not hit her head. She took xarelto today. She recently had an NSTEMI with one stent placed 01/24/2018. Her last EGD was 08/17/2017 which showed erythematous mucosa in the stomach. Last colonoscopy was 07/17/2017 which showed 2 non-bleeding polyps. She is a current smoker. In the ED her hemoglobin was 4.5. She was typed and screened, 2 units PRBC ordered. Fabby was consulted in ED. She is a full code. Past Med Surg Social Fam HX - Past Medical History Medical history: arthritis, atrial fibrillation, COPD, coronary artery disease, DVT, hyperlipidemia, hypertension, myocardial infarction, peripheral artery disease, other Psychiatric history: anxiety, depression - Past Surgical History Surgical History: angioplasty/stent, cholecystectomy, hysterectomy, knee replacement, other, vascular surgery, LE bypass, LE vascular intervention - Social History Smoking Status: Current every day smoker Smokeless Tobacco Status: No Alcohol use: none Drug use: none - Family History Mother Adopted: No Living Status: Hx Family Cardiac Disorders: Yes Hx Family Respiratory Disorders: Yes Hx Family Cancer: No Hx Family GI Disorders: No Hx Family Endocrine Disorder: Yes Hx Family Neuromuscular Disorders: No Hx Family Neurologic Disorders: No Hx Family HEENT Disorders: No Hx Family Autoimmune Disorders: No Father Adopted: No Living Status: Hx Family Cardiac Disorders: Yes Hx Family Cancer: Yes (Prostate) Hx Family Endocrine Disorder: Yes (DM) Internal Medicine - H&P: Meds Albuterol Sulfate [Albuterol Inhaler] 2 puff IH Q4H PRN 10/22/16 [History] Furosemide [Lasix] 20 mg PO DAILY 10/22/16 [History] Gabapentin 600 mg PO TID 10/22/16 [History] Isosorbide DInitrate [Isosorbide Dinitrate] 30 mg PO BID 10/22/16 [History] Ranolazine [Ranexa] 500 mg PO BID 30 Days tab.er.12h 10/22/16 [Rx] Rivaroxaban [Xarelto] 20 mg PO DAILY 10/22/16 [History] Atorvastatin Calcium [Lipitor] 80 mg PO HS 02/16/17 [History] Metformin HCl [Glucophage] 1,000 mg PO BID 05/11/17 [History] Omeprazole [PriLOSEC] 40 mg PO BID #60 cap 08/18/17 [Rx] Amlodipine Besylate 10 mg PO DAILY 01/21/18 [History] Dicyclomine [Bentyl] 20 mg PO QID 01/21/18 [History] Metoprolol Tartrate 50 mg PO BID 01/21/18 [History] Ondansetron [Zofran ODT] 8 mg SL Q8H PRN 01/21/18 [History] Venlafaxine HCl [Venlafaxine HCl ER] 75 mg PO DAILY 01/21/18 [History] clonazePAM [Klonopin] 1 mg PO TID PRN 01/21/18 [History] Aspirin 81 mg PO DAILY #30 tab.chew 01/25/18 [Rx] Ticagrelor [Brilinta] 90 mg PO BID #60 tablet 01/25/18 [Rx] Oxygen 2.5 l NS AD 02/01/18 [History] 3 Allergy/AdvReac Type Severity Reaction Status Date / Time No Known Allergies Allergy Verified 01/21/18 11:53 All Systems PM: A 10-system review of systems was performed and is negative for pertinent findings except as documented above in the HPI. - Constitutional Constitutional: falls, lethargy, weakness, no chills, no fever(s) - EENT Eyes: no change in vision - Cardiovascular Cardiovascular ROS IM: lightheadedness, no chest pain, no diaphoresis, no palpitations, no syncope - Respiratory Respiratory: no cough, no dyspnea - Gastrointestinal Gastrointestinal: change in stool character, melena, nausea, no abdominal pain, no diarrhea, no vomiting - Genitourinary Genitourinary: no dysuria, no hematuria, no urinary frequency - Integumentary Integumentary IM: no rash - Neurological Neurological ROS: no headache(s), no loss of vision - Constitutional Vitals: Temp Pulse Resp BP Pulse Ox 97.9 F 112 19 132/54 94 02/01/18 19:13 02/01/18 19:13 02/01/18 19:13 02/01/18 19:13 02/01/18 19:13 General appearance: Present: A&O X 3, pleasant, no acute distress, answers questions appropriately - Head Head exam: Present: atraumatic, normocephalic - Respiratory Respiratory exam: Present: decreased breath sounds, CTAB. Absent: rales, rhonchi, wheezes - Cardiovascular Cardiovascular exam: Present: RRR. Absent: clicks - GI/Abdominal GI/Abdominal exam: Present: normal bowel sounds, soft, tenderness (Minimal left lower quadrant). Absent: firm, guarding - Extremities Exam Extremities exam: Present: normal inspection. Absent: tenderness - Back Exam Back exam: Absent: tenderness - Neurological Exam Neurological exam: Present: alert, oriented X3, no focal deficits - Psychiatric Psychiatric exam: Present: normal affect, normal mood - Skin Skin exam: Present: dry, intact Internal Med - H&P Results - Labs CBC & Chem 7: 02/01/18 15:08 02/01/18 15:08 <Tha Bal - Last Filed: 02/02/18 00:28> Date of Encounter: 02/01/18 Time of Encounter: 19:30 Internal Medicine - H&P: HPI History of present illness: Ms. Costa is a 67 year old female All Systems PM: A 10-system review of systems was performed and is negative for pertinent findings except as documented above in the HPI. - Constitutional Vitals: Temp Pulse Resp BP Pulse Ox 98.0 F 72 20 115/54 100 02/01/18 21:00 02/02/18 00:00 02/02/18 00:00 02/02/18 00:00 02/02/18 00:00 Internal Med - H&P Results - Labs CBC & Chem 7: 02/01/18 15:08 02/01/18 15:08 - Attending Attestation I examined this patient and my medical decision-making was reviewed with the Resident Physician, Shani Ricardo. I agree with the documented findings, disposition and treatment plan as described with any changes as documented below. 67-year-old female patient with history of coronary artery disease, prior DVT and PE with recent drug-eluting coronary stent placement last month presented to the ER with complaints of melena but has been going on for 3 days. She has been feeling progressively weak and tired. She is on aspirin, brillinta, Xarelto. She also complains of mid abdominal pain mainly on the left side. Nonradiating. No nausea or vomiting. No hematemesis. On examination, patient is thin built, underweight. In moderate distress. Left upper and middle quadrant tenderness. Heart sounds are normal. Breath sounds are normal. Pallor. Mucous membranes dry. Hemoglobin 4.5, lactic acid 7.6, INR 3.9 PTT 43.3 Acute GI bleed with severe blood loss anemia: Will transfer patient to ICU. Monitor closely. High risk for complications. Place patient on IV Protonix drip. IV fluids with Plasma-Lyte. Ordered Blood transfusions and plasma transfusion. Patient already received vitamin K. Stop Xarelto. We will hold ASA and Brilinta for now but most likely these will be resumed in the morning as patient recently had drug-eluting stent placement. Keep nothing by mouth. Consult GI. Monitor closely for further bleeding. Patient at high risk for sudden deterioration and will need critical care management. Coronary artery disease with recent PCI and drug-eluting stent: High risk for in -stent restenosis if antiplatelet agents discontinued. We will need to resume them as early as possible. We will consult cardiology for recommendations. Severe lactic acidosis: Due to hypovolemia. IV hydration. Trending lactic acid. Diabetes mellitus type 2: Monitor blood sugars. Sliding scale coverage. COPD: Not in acute exacerbation. Use bronchodilators as needed. Essential hypertension: Monitor blood pressure. Resume home medications as tolerated. Atrial fibrillation: Rate controlled. Hold anticoagulation for now due to acute bleeding. Critical care time: 35 minutes
[2018-02-01] MEDS ORDERED: Naloxone 0.4 MG/ML INJ IVP PRN (20:44)
[2018-02-01] MEDS ORDERED: Ondansetron ODT 4 MG TAB.RAPDIS SL PRN (20:47)
[2018-02-01] MEDS ORDERED: 0.9 % Sodium Chloride 1,000 ML ONE (20:48)
[2018-02-01] MEDS ORDERED: Acetaminophen 325 MG TABLET PO ONE (20:51)
[2018-02-01] MEDS ORDERED: Ringers Solution, Lactated 500 ML IVC ONE (21:00)
[2018-02-01] MEDS ORDERED: D5% in Water 1,000 ML IVC PRN (21:06)
[2018-02-01] MEDS ORDERED: *HR* Dextrose 50 % in Water (Syg) 50 ML SYRINGE IVP PRN (21:06)
[2018-02-01] MEDS ORDERED: Dextrose Gel 15 GM/37.5 ML TUBE PO PRN ×2 (21:06)
[2018-02-01] MEDS: Pantoprazole 80 MG in 0.9 % Sodium Chloride 250 ML IVC SCH (21:30)
[2018-02-01] MEDS ORDERED: Ringers Solution, Lactated 1,000 ML IVC SCH (21:30)
[2018-02-01] MEDS ORDERED: traMADol 50 MG TABLET PO ONE (21:31)
--- NOTE | 2018-02-01 21:33 | Event Note ---
Date of Encounter: 02/01/18 Time of Encounter: 19:30 I examined this patient and my medical decision-making was reviewed with the Resident Physician, Shani Ricardo. I agree with the documented findings, disposition and treatment plan as described with any changes as documented below. 67-year-old female patient with history of coronary artery disease, prior DVT and PE with recent drug-eluting coronary stent placement last month presented to the ER with complaints of melena but has been going on for 3 days. She has been feeling progressively weak and tired. She is on aspirin, brillinta, Xarelto. She also complains of mid abdominal pain mainly on the left side. Nonradiating. No nausea or vomiting. No hematemesis. On examination, patient is thin built, underweight. In moderate distress. Left upper and middle quadrant tenderness. Heart sounds are normal. Breath sounds are normal. Pallor. Mucous membranes dry. Hemoglobin 4.5, lactic acid 7.6, INR 3.9 PTT 43.3 Acute GI bleed with severe blood loss anemia: Will transfer patient to ICU. Monitor closely. High risk for complications. Place patient on IV Protonix drip. IV fluids with Plasma-Lyte. Ordered Blood transfusions and plasma transfusion. Patient already received vitamin K. Stop Xarelto. We will hold ASA and Brilinta for now but most likely these will be resumed in the morning as patient recently had drug-eluting stent placement. Keep nothing by mouth. Consult GI. Monitor closely for further bleeding. Patient at high risk for sudden deterioration and will need critical care management. Coronary artery disease with recent PCI and drug-eluting stent: High risk for in -stent restenosis if antiplatelet agents discontinued. We will need to resume them as early as possible. We will consult cardiology for recommendations. Severe lactic acidosis: Due to hypovolemia. IV hydration. Trending lactic acid. Diabetes mellitus type 2: Monitor blood sugars. Sliding scale coverage. COPD: Not in acute exacerbation. Use bronchodilators as needed. Essential hypertension: Monitor blood pressure. Resume home medications as tolerated.
[2018-02-01] MEDS: clonazePAM 1 MG TABLET PO PRN (21:34)
[2018-02-01] MEDS: Isosorbide MONOnitrate (24 HR) 30 MG TAB.ER.24H PO SCH (21:48)
[2018-02-01] MEDS: Gabapentin 300 MG CAPSULE PO SCH (21:49)
[2018-02-01] MEDS: Ranolazine 500 MG TAB.ER.12H PO SCH (21:49)
[2018-02-01] MEDS: Insulin LISPRO 300 UNITS/3 ML VIAL SQ SCH (21:49)
[2018-02-01] MEDS: Plasma-Lyte A (PH 7.4) 1,000 ML IVC SCH (22:00)
[2018-02-02 00:30] LABS: Hematocrit 18.8 % (35.3-44.9)
[2018-02-02] MEDS: Insulin LISPRO 300 UNITS/3 ML VIAL SQ SCH ×4 (07:32→20:56)
[2018-02-02] MEDS: Pantoprazole 40 MG in 0.9 % Sodium Chloride Mini Bag 100 ML IVC SCH ×3 (08:29→20:54)
[2018-02-02] MEDS: Plasma-Lyte A (PH 7.4) 1,000 ML IVC SCH (08:29)
[2018-02-02] MEDS: Pantoprazole 80 MG in 0.9 % Sodium Chloride 250 ML IVC SCH (08:31)
[2018-02-02] MEDS: amLODIPine 5 MG TABLET PO SCH (08:35)
[2018-02-02] MEDS: Ranolazine 500 MG TAB.ER.12H PO SCH ×2 (08:35→20:55)
[2018-02-02] MEDS: Venlafaxine XR (24 HR) 75 MG CAP.ER.24H PO SCH (08:36)
[2018-02-02] MEDS: Gabapentin 300 MG CAPSULE PO SCH ×3 (08:36→20:55)
[2018-02-02] MEDS: Isosorbide MONOnitrate (24 HR) 30 MG TAB.ER.24H PO SCH ×2 (08:36→20:56)
--- NOTE | 2018-02-02 08:47 | Anesthesia Evaluation PreOp ---
Date of Encounter: 02/02/18 Time of Encounter: 08:45 - Past History Planned Operation: EGD Cardiac History: [facility] (Recent Nstemi), CHF, HTN, Hyperlipidemia, Arrhythmia (AF), Cardiac Stent (stents x 4) Pulmonary History: Smoker (58 years), COPD (home O2 @ 2L) Other Medical History: Diabetes Type II, GERD, Other (Chronic pain) Anesthesia History: No Prior Anesthetic Complications, Past Anesthesia ( Colonoscopy angioplasty/stent, cholecystectomy, hysterectomy, knee replacement, other, vascular surgery, LE bypass, LE vascular intervention) : No Alcohol Use: none Drug use: none Medications and Allergies Albuterol Sulfate [Albuterol Inhaler] 2 puff IH Q4H PRN 10/22/16 [History] Furosemide [Lasix] 20 mg PO DAILY 10/22/16 [History] Gabapentin 600 mg PO TID 10/22/16 [History] Isosorbide DInitrate [Isosorbide Dinitrate] 30 mg PO BID 10/22/16 [History] Ranolazine [Ranexa] 500 mg PO BID 30 Days tab.er.12h 10/22/16 [Rx] Rivaroxaban [Xarelto] 20 mg PO DAILY 10/22/16 [History] Atorvastatin Calcium [Lipitor] 80 mg PO HS 02/16/17 [History] Metformin HCl [Glucophage] 1,000 mg PO BID 05/11/17 [History] Omeprazole [PriLOSEC] 40 mg PO BID #60 cap 08/18/17 [Rx] Amlodipine Besylate 10 mg PO DAILY 01/21/18 [History] Dicyclomine [Bentyl] 20 mg PO QID 01/21/18 [History] Metoprolol Tartrate 50 mg PO BID 01/21/18 [History] Ondansetron [Zofran ODT] 8 mg SL Q8H PRN 01/21/18 [History] Venlafaxine HCl [Venlafaxine HCl ER] 75 mg PO DAILY 01/21/18 [History] clonazePAM [Klonopin] 1 mg PO TID PRN 01/21/18 [History] Aspirin 81 mg PO DAILY #30 tab.chew 01/25/18 [Rx] Ticagrelor [Brilinta] 90 mg PO BID #60 tablet 01/25/18 [Rx] Oxygen 2.5 l NS AD 02/01/18 [History] 3 Allergy/AdvReac Type Severity Reaction Status Date / Time No Known Allergies Allergy Verified 01/21/18 11:53 - Meds/Allergy Pre-op Review Medications Reviewed: Yes Allergies Reviewed: Yes Beta Blockers on Current Med List: Yes If Beta Blockers taken, Date/Time (Last Dose taken): 08:36 02/02/2018 Anesthesia Results - Labs 02/02/18 00:20 02/01/18 15:08 Echocardiogram Name: Ilene Costa Date of Study: 01/22/2018 Impressions: LVEF 50%. Mild concentric left ventricular hypertrophy. Mild segmental left ventricular systolic dysfunction. Mild left ventricular diastolic dysfunction. Atypical septal motion consistent with bundle branch block. Normal right ventricular structure and function. No evidence of pulmonary hypertension. No significant valvular dysfunction. LEFT HEART CATH Date of Study: 01/24/2018 Stent w/ PTCA Single Major Vessel Add'l complete exam Indications: Non-Stemi Impressions: There is severe two vessel coronary artery disease. The left ventricle is normal and has normal contractility EF 60% There is fair quality collateral vessel/vessels from the Distal Circumflex to the Right PDA that are visualized. Stent placed from a prior procedure in the 1st Marginal is is patent.Stent placed from a prior procedure in the Mid LAD is is patent.Patient had successful PTCA/Drug-Eluting Stent placement in the mid Circ. Rt Iliac Artery angiogram performed. 100% Rt External iliac and 100% Rt SFA occlusion seen. Recommendations: Optimal medical therapy of patient's disease. - Imaging EKG: report reviewed (SINUS RHYTHM WITH OCCASIONAL SUPRAVENTRICULAR PREMATURE COMPLEXES RIGHT AXIS DEVIATION) Anesthesia Exam Vital Signs/O2 Sat, Most Current Temp Pulse Resp BP Pulse Ox 98.7 F 77 21 122/66 99 02/02/18 07:20 02/02/18 08:33 02/02/18 08:33 02/02/18 08:33 02/02/18 08:33 NPO (# of Hours): > 8 hrs Pain Scale: 0 Pain Scale Used: Numeric (1 - 10) - HEENT Pupil (Motor): Pupils equal, EOMI Mallampati: I Teeth: Poor dentition (loose lower front tooth) Oral Opening: Greater than 3 - SAFETY TECHNICIAN LOC: Oriented SAFETY TECHNICIAN Motor: Normal RUE, Normal LUE, Normal RLE, Normal LLE, Normal Face SAFETY TECHNICIAN Sensory: Normal: RUE, LUE, RLE, LLE, Face - Cardiac Rhythm: Irregular Murmur: None JVD: No Carotid Bruit: No - Pulmonary Breath Sounds: bilateral Clear Respiratory Effort: Symmetrical Anesthesia Assess/Plan ASA Score: 4 Modified Tay Scale for Level of Consciousness: Cooperative, oriented, and tranquil Anesthetic Plan: MAC Autologous Blood: Yes Monitoring Plan: Standard Monitors Recovery Plan: Other
[2018-02-02] MEDS ORDERED: Heparin 1,000 UNITS/500 mL 500 ML ONE (09:03)
[2018-02-02] MEDS ORDERED: *HR* PHENYLEPHRINE 1,000 MCG/10 ML SYRINGE IVP ONE (09:03)
[2018-02-02] MEDS ORDERED: Lidocaine -MPF 2% 2 ML VIAL ONE (09:07)
[2018-02-02 09:11] LABS: Basophils % 0.4 %; Eosinophils # 0.2 K/mcL (0.0-0.6); Eosinophils % 2.6 %; Immature Granulocytes % 1.5 % (0-4); Lymphocytes # 1.8 K/mcL (0.6-4.6); Lymphocytes % 21.2 %; Mean Corpuscular HGB Conc 33.2 g/dL (31.6-35.5); Mean Corpuscular Hemoglobin 28.3 pg (28.0-33.3); Mean Corpuscular Volume 85.3 fL (83.0-100.0); Mean Platelet Volume 9.3 fL (9.4-12.4); Monocytes # 0.5 K/mcL (0.0-1.3); Monocytes % 6.1 %; Neutrophils # 5.8 K/mcL (1.6-8.9); Platelet Count 207 K/mcL (140-400); Red Blood Count 2.93 M/mcL (3.82-4.97); Red Cell Distribution Width 15.5 % (11.5-14.5); Segmented Neutrophils % 68.2 %
[2018-02-02] MEDS ORDERED: *HR* Etomidate 40 MG/20 ML VIAL IVP ONE (09:14)
[2018-02-02 09:17] LABS: Hemoglobin 8.3 g/dL (11.5-15.4)
[2018-02-02 09:24] LABS: BUN/Creatinine Ratio 41 (6-26); Blood Urea Nitrogen 22 mg/dL (8-23); Carbon Dioxide 29 mEq/L (23-29); Chloride 108 mEq/L (98-107); Glucose 111 mg/dL (70-105); Osmolality,Calculated 296 (280-300); Potassium 3.4 mEq/L (3.5-5.1); Sodium 141 mEq/L (136-145); eGFR For African Americans > 60 (> 60); eGFR For Non-African Americans > 60 (> 60)
[2018-02-02] MEDS ORDERED: Ondansetron 4 MG/2 ML VIAL ONE (09:50)
[2018-02-02] MEDS ORDERED: Dexamethasone 4 MG/ML VIAL ONE (09:50)
[2018-02-02] MEDS ORDERED: *HR* Midazolam HCl 2 MG/2 ML VIAL ONE (10:17)
[2018-02-02] MEDS ORDERED: *HR* FentaNYL (PF) 100 MCG/2 ML VIAL ONE (10:17)
[2018-02-02] MEDS ORDERED: *HR* Succinylcholine 200 MG/10 ML VIAL IVP ONE (10:17)
--- NOTE | 2018-02-02 11:06 | Gastroenterology Consult Note ---
<Mynor Berry - Last Filed: 02/02/18 11:04> Date of Encounter: 02/02/18 Time of Encounter: 10:10 - Assessment and plan (1) Blood loss anemia Current Visit: No Status: Resolved Assessment and plan: On admission, Hgb 4.5 and INR 3.9. She has received 3 units PRBC and 1 unit FFP. Hgb up to 8.3 this AM. Continue to monitor CBC and transfuse PRBC as needed. (2) GI bleed Current Visit: Yes Status: Acute Assessment and plan: EGD completed this morning showed LA Grade A esophagitis, gastritis, and AVM treated with cautery. Plan for colonoscopy tomorrow morning. Clear liquid diet today, no red or purple. NPO at midnight. If unable tolerate NuLytely please use MiraLAX prep. If not clear by 6 AM, give 2 tap water enemas. Qualifiers: GI bleed type/associated pathology: melena Qualified Code(s): K92.1 - Melena (3) Elevated INR Current Visit: Yes Status: Acute Assessment and plan: INR 3.9 on admission and she has received 1 unit FFP. - Time Spent With Patient Total time spent is greater than 50% in coordination of care (as documented) at patient's floor/unit and/or counseling patient: GI History of Present Illness - Data of Consult Patient: known to practice within the last 3 years Consult date: 02/02/18 Requesting Physician: Nirav Hernandez DO - Consult Narrative Reason for consult: Melena, anemia History of present illness: Ms. Costa is a 67 year old female with PMHx of arthritis, Afib on Xarelto, COPD , CAD, DVT, PE, HLD, HTN, NSTEMI with 4 stents, who presented with increased weakness for 3 days and black stools for 4 days prior to admission. She reported lightheadedness, weakness, felt like passing out, and nausea. She states she had black stools and BRBPR daily for the past 4 days. She denies fever, chills, chest pain, shortness of breath, syncope, abdominal pain, vomiting. She recently had an NSTEMI with one stent placed 01/24/2018. Her last EGD was 08/17/2017 which showed mild chronic gastritis. Last colonoscopy was 07/17 which showed 3 non-bleeding polyps and internal hemorrhoids. On admission , Hgb 4.5 and INR 3.9. Procedures: EGD 08/17/2017 Dr. Torrez: Mild chronic gastritis Colonoscopy 07/17/2017 Dr. Torrez: Multiple tubular adenomas 4-10 mm and internal hemorrhoids. Repeat in 2 years. Colonoscopy 02/17/2017 Dr. Torrez: Multiple large colon polyps > 10 mm - tubular adenomas; repeat 6 months. NSAIDs: ASA Anticoagulation: Xarelto Past Med Surg Social Fam HX - Past Medical History Medical history: arthritis, atrial fibrillation, COPD, coronary artery disease, DVT, hyperlipidemia, hypertension, myocardial infarction, peripheral artery disease, other Psychiatric history: anxiety, depression - Past Surgical History Surgical History: angioplasty/stent, cholecystectomy, hysterectomy, knee replacement, other, vascular surgery, LE bypass, LE vascular intervention - Social History Smoking Status: Current every day smoker Smokeless Tobacco Status: No Alcohol use: none Drug use: none - Family History Mother Adopted: No Living Status: Hx Family Cardiac Disorders: Yes Hx Family Respiratory Disorders: Yes Hx Family Cancer: No Hx Family GI Disorders: No Hx Family Endocrine Disorder: Yes Hx Family Neuromuscular Disorders: No Hx Family Neurologic Disorders: No Hx Family HEENT Disorders: No Hx Family Autoimmune Disorders: No Father Adopted: No Living Status: Hx Family Cardiac Disorders: Yes Hx Family Cancer: Yes (Prostate) Hx Family Endocrine Disorder: Yes (DM) - Gastrointestinal Gastrointestinal: Present: as per HPI - Constitutional Constitutional: as per HPI - EENT Eyes: as per HPI Ears: Present: as per HPI Nose, mouth and throat: Present: as per HPI - Cardiovascular Cardiovascular ROS: Present: as per HPI - Respiratory Respiratory IM: Present: as per HPI - Genitourinary Genitourinary: Absent: change in color, Urinary frequency - Neurological ROS Neurological GI: Present: as per HPI - Hematologic/Lymphatic Hematologic/Lymphatic pediatric: Present: as per HPI - Musculoskeletal Musculoskeletal ROS GI: Present: as per HPI - Integumentary Integumentary GI: Present: as per HPI - Psychiatric ROS Psychiatric GI: Present: as per HPI - Endocrine Endocrine IM: Present: as per HPI - Constitutional Vitals: Temp Pulse Resp BP Pulse Ox 98.7 F 60 14 103/69 100 02/02/18 07:20 02/02/18 10:30 02/02/18 10:30 02/02/18 10:30 02/02/18 10:30 General appearance: Present: cooperative, A&O X 3, no acute distress, answers questions appropriately - Head Head exam: Present: atraumatic, normocephalic - Eye Eye exam: Present: normal appearance, sclera anicteric - ENT ENT exam: Present: mucous membranes dry - Neck Neck exam general surgery: Present: normal inspection, trachea midline - Respiratory Respiratory exam: Present: decreased breath sounds, CTAB. Absent: rales, rhonchi - Cardiovascular Cardiovascular exam: Present: RRR, +S1, +S2 - GI/Abdominal GI/Abdominal exam: Present: soft, no peritoneal signs. Absent: distended, firm , guarding, tenderness - Rectal Rectal exam: Present: deferred - Extremities Exam Extremities exam: Present: warm - Neurological Exam Neurological exam: Present: no focal deficits - Psychiatric Psychiatric exam: Present: normal affect, normal mood - Skin Skin exam: Present: dry, intact, normal color, warm Results - Labs CBC & Chem 7: 02/02/18 04:00 02/02/18 04:00 Labs: Last Result Calcium 8.0 mg/dL (8.6-10.3) L 02/02/18 04:00 Troponin I < 0.03 ng/mL (< 0.04) 02/01/18 15:08 Entire Visit Hgb 8.3 g/dL (11.5-15.4) L D 02/02/18 04:00 Hct 25.0 % (35.3-44.9) L 02/02/18 04:00 PT 43.3 Seconds (9.4-12.1) H* 02/01/18 15:08 Total Bilirubin 0.3 mg/dL (0.3-1.0) 02/01/18 15:08 AST 13 Units/L (13-39) 02/01/18 15:08 ALT 10 Units/L (7-52) 02/01/18 15:08 - ABG ABG results: PT/INR, D-dimer PT 43.3 Seconds (9.4-12.1) H* 02/01/18 15:08 - Impressions Impressions Abdomen/Pelvis CT 02/02/18 23:34 IMPRESSION: 1. Small left pleural effusion. 2. No acute abnormality within the abdomen and pelvis. 3. Colonic diverticulosis without evidence of acute diverticulitis. 4. Aneurysmal dilatation of the aorta measuring up to 3.1 cm. See follow-up guidelines below. RECOMMENDATIONS: Managing Abdominal Aortic Aneurysms 2.6-2.9 cm: Every 5 years* 3.0-3.4 cm: Every 3 years. 3.5-3.9 cm: Every 1 year. 4.0-4.4 cm: Every 1 year. Recommend vascular consultation. 4.5-5.4 cm: Every 6 months. Recommend vascular consultation. Greater than or equal to 5.5 cm: Referral to vascular surgeon. *For abdominal aortas with maximum diameter of 2.6-2.9 cm meeting criteria for AAA (>50% of proximal normal segment). Reference: J Vasc Surg. 2008;50(4 Suppl):S2-49 D/ / Gurwinder Parish MD / Gurwinder Parish MD Interpreting Provider: Gurwinder Parish MD Consult Discharge Plan - Plan Referrals: NONE,PCP [Primary Care Provider] - <Dagoberto Ferguson - Last Filed: 02/04/18 15:24> Date of Encounter: 02/02/18 - Time Spent With Patient Total time spent is greater than 50% in coordination of care (as documented) at patient's floor/unit and/or counseling patient: GI History of Present Illness - Data of Consult Requesting Physician: Nirav Hernandez DO - Consult Narrative History of present illness: Ms. Costa is a 67 year old female - Constitutional Vitals: Temp Pulse Resp BP Pulse Ox 98.9 F 55 16 106/55 99 02/04/18 13:50 02/04/18 13:50 02/04/18 13:50 02/04/18 13:50 02/04/18 13:50 Results - Labs CBC & Chem 7: 02/04/18 07:00 02/04/18 07:00 Labs: Last Result Calcium 8.6 mg/dL (8.6-10.3) 02/04/18 07:00 Troponin I < 0.03 ng/mL (< 0.04) 03/08/18 15:08 Stool Occult Blood Positive (Negative) A 02/02/18 20:30 Entire Visit Hgb 7.6 g/dL (11.5-15.4) L 02/04/18 07:00 Hct 23.4 % (35.3-44.9) L 02/04/18 07:00 PT 43.3 Seconds (9.4-12.1) H* 02/01/18 15:08 Total Bilirubin 0.3 mg/dL (0.3-1.0) 02/01/18 15:08 AST 13 Units/L (13-39) 02/01/18 15:08 ALT 10 Units/L (7-52) 02/01/18 15:08 - ABG ABG results: PT/INR, D-dimer PT 43.3 Seconds (9.4-12.1) H* 02/01/18 15:08 - Attending Attestation Ilene Costa is a pleasant 67-year-old female who comes in with at least a week of melena and a hemoglobin of 4.5 g percent the severe shortness of breath and fatigue showed a stent placed about 2 weeks ago and was put on antiplatelet agents. Importantly she noted the episodes of black stools and therefore started and pain and presented to the emergency room today and further recommendations made after endoscopy which is planned emergently today the patient does not diagnosis is quite wide thank you for this consultation we will make further recommendations after endoscopy I have personally performed a face to face evaluation on this patient. I have reviewed and agree with the care plan. History and Exam by me shows:
[2018-02-02] MEDS: Aspirin Enteric Coated 81 MG Tablet PO SCH (13:01)
[2018-02-02] MEDS: *HR* Ticagrelor 90 MG TABLET PO SCH ×2 (13:01→20:56)
--- NOTE | 2018-02-02 13:06 | Cardiology Consult Note ---
<AngelSehrieMayra L - Last Filed: 02/02/18 13:04> Date of Encounter: 02/02/18 Time of Encounter: 11:00 Assessment and Plan (1) GI bleed Current Visit: Yes Status: Acute Acute anemia secondary to GI bleed. HgB upon admission 4.5. Reports 4-5 day hx of melena prior to admission. Recent NSTEMI on 01/24/18 s/p PTCA/GO to mLCx--recommend minimum 1 year of uninterrupted DAPT (asa + brilinta). Patient is high risk for stent thrombosis, will re-start DAPT now. Agree with discontinuation of Xarelto--pt. aware of increased risk for CVA. (Hx of PAF). HgB now stable. s/p EGD--no active bleeding noted. Plan for colonscopy in AM. Qualifiers: GI bleed type/associated pathology: melena Qualified Code(s): K92.1 - Melena (2) Coronary artery disease Current Visit: Yes Status: Acute Recent NSTEMI s/p PCI 01/24/18. Uninterrupted DAPT for minimum of 1 year (asa + brilinta). High risk for stent thrombosis, IA if DAPT held. Qualifiers: Coronary Disease-Associated Artery/Lesion type: [place] artery [place] vs. transplanted heart: [place] heart Associated angina: without angina Qualified Code(s): I25.10 - Atherosclerotic heart disease of [place] coronary artery without angina pectoris (3) Elevated INR Current Visit: Yes Status: Acute Xarelto held. Discussion w patient/family: The assessment and plan as outlined above was discussed with the patient and/or family members who expressed understanding and agreement. All questions were answered. Thank you for involving us in the care of your patient. Please call with any questions. The patient will be discussed and reviewed with Dr. Fred Ferguson; changes to be made accordingly. History of Present Illness Consult date: 02/02/18 Requesting physician: Tha Bal Consult reason: GI bleed Chief complaint: melena History of present illness: Ms. Costa is a 67 year old female with PMHx significant for CAD s/p recent PCI , severe PVD s/p multiple LE interventions, tobacco use, COPD oxygen dependent, afib (xarelto), HTN, and HLD who presented to the ED with complaints of melena x4 days. Associated symptoms included profound weakness. Upon arrival her HgB was 4.5. Patient had been on triple therapy with asa, brilinta, and xarelto d/t recent NSTEMI s/p PCI and hx of Atrial fibrillation. the past 2 days. Underwent EGD today--no active bleeding noted. Plan for colonoscopy tomorrow. Prior CV testing: TTE 01/22/18: LVEF 50%, mild cLVH, mild segmental LV systolic dysfunction, no significant valvular dysfunction LHC 01/24/18: severe 2vCAD, fair quality collateral vessel/vessles from distal LCx to right PDA that are visualized; patent Om1 stent and mLAD stent; successful PTCA/GO in the mLCx. TTE 07/2017: LVEF 60%, basal inferior wall was akinetic, mild cLVH, no significant valvular dysfunction Regadenoson nuclear 08/16/15: perfusion imaging was negative for ischemia or infarct, rare PVCs/PACs, gated EF=69%, no TID, LV is visually dilated, LVEDV= 144 mL. Past Med Surg Social Fam HX - Past Medical History Attestation: Yes The following information was validated with the patient. Source: patient Medical history: arthritis, atrial fibrillation, COPD, coronary artery disease, DVT, hyperlipidemia, hypertension, myocardial infarction, peripheral artery disease, other Psychiatric history: anxiety, depression - Past Surgical History Surgical History: angioplasty/stent, cholecystectomy, hysterectomy, knee replacement, other, vascular surgery, LE bypass, LE vascular intervention - Social History Smoking Status: Current every day smoker Smokeless Tobacco Status: No Alcohol use: none Drug use: none - Family History Mother Adopted: No Living Status: Hx Family Cardiac Disorders: Yes Hx Family Respiratory Disorders: Yes Hx Family Cancer: No Hx Family GI Disorders: No Hx Family Endocrine Disorder: Yes Hx Family Neuromuscular Disorders: No Hx Family Neurologic Disorders: No Hx Family HEENT Disorders: No Hx Family Autoimmune Disorders: No Father Adopted: No Living Status: Hx Family Cardiac Disorders: Yes Hx Family Cancer: Yes (Prostate) Hx Family Endocrine Disorder: Yes (DM) Medications and Allergies Albuterol Sulfate [Albuterol Inhaler] 2 puff IH Q4H PRN 10/22/16 [History] Furosemide [Lasix] 20 mg PO DAILY 10/22/16 [History] Gabapentin 600 mg PO TID 10/22/16 [History] Isosorbide DInitrate [Isosorbide Dinitrate] 30 mg PO BID 10/22/16 [History] Ranolazine [Ranexa] 500 mg PO BID 30 Days tab.er.12h 10/22/16 [Rx] Rivaroxaban [Xarelto] 20 mg PO DAILY 10/22/16 [History] Atorvastatin Calcium [Lipitor] 80 mg PO HS 02/16/17 [History] Metformin HCl [Glucophage] 1,000 mg PO BID 05/11/17 [History] Omeprazole [PriLOSEC] 40 mg PO BID #60 cap 08/18/17 [Rx] Amlodipine Besylate 10 mg PO DAILY 01/21/18 [History] Dicyclomine [Bentyl] 20 mg PO QID 01/21/18 [History] Metoprolol Tartrate 50 mg PO BID 01/21/18 [History] Ondansetron [Zofran ODT] 8 mg SL Q8H PRN 01/21/18 [History] Venlafaxine HCl [Venlafaxine HCl ER] 75 mg PO DAILY 01/21/18 [History] clonazePAM [Klonopin] 1 mg PO TID PRN 01/21/18 [History] Aspirin 81 mg PO DAILY #30 tab.chew 01/25/18 [Rx] Ticagrelor [Brilinta] 90 mg PO BID #60 tablet 01/25/18 [Rx] Oxygen 2.5 l NS AD 02/01/18 [History] 3 Allergy/AdvReac Type Severity Reaction Status Date / Time No Known Allergies Allergy Verified 01/21/18 11:53 All Systems Review: The remainder of the systems were reviewed and are negative - Cardiovascular Cardiovascular: as per HPI Physical Examination Vital Signs, Last 4 Hours Temp Pulse Resp BP Pulse Ox 02/02/18 12:00 60 10 102/53 97 02/02/18 11:45 98.2 F 02/02/18 11:34 119/60 02/02/18 11:22 60 18 86/36 02/02/18 10:30 60 14 103/69 100 02/02/18 10:15 65 10 117/70 98 02/02/18 10:05 60 11 97/55 100 02/02/18 09:28 60 14 94/54 95 General: Other (pale) HEENT: Atraumatic, Normocephaly Cardiac: Reg Rate and Rhythm, Normal S1 and S2 Lungs: Normal Breath Sounds Neuro: Alert and responsive Abdomen: Soft Skin: No rashes noted on visualized skin Extremities: No Edema, Normal Pulses Results 02/02/18 04:00 02/02/18 04:00 Lab Results 02/02/18 02/02/18 02/02/18 00:20 04:00 04:00 WBC 8.5 Hgb 6.0 L* D 8.3 L D Hct 18.8 L 25.0 L Plt Count 207 Sodium 141 Potassium 3.4 L Chloride 108 H Carbon Dioxide 29 BUN 22 Creatinine 0.54 L Glucose 111 H Calcium 8.0 L Active Medications Albuterol Sulfate (Albuterol Inhaler) 2 puff IH Q4H PRN PRN Reason: Shortness Of Breath Stop: 08/03/18 19:36 Amlodipine Besylate (Norvasc) 10 mg PO DAILY [facility] Stop: 08/04/18 09:01 Last Admin: 02/02/18 08:35 Dose: 10 mg Aspirin (Aspirin Ec) 81 mg PO DAILY [facility] Stop: 08/04/18 12:46 Last Admin: 02/02/18 13:01 Dose: 81 mg Atorvastatin Calcium (Lipitor) 80 mg PO HS [facility] Stop: 08/03/18 21:01 Last Admin: 02/01/18 21:48 Dose: Not Given Bisacodyl (Dulcolax) 20 mg PO ONCE ONE Stop: 02/02/18 15:01 Clonazepam (Klonopin) 1 mg PO TID PRN PRN Reason: Anxiety Stop: 08/03/18 19:36 Last Admin: 02/01/18 21:34 Dose: 1 mg Dextrose/Water (Dextrose 50% (Syg)) 25 ml IVP AD PRN PRN Reason: Hypoglycemia Stop: 08/03/18 21:07 Dicyclomine HCl (Bentyl) 20 mg PO QID [facility] Stop: 08/03/18 21:01 Last Admin: 02/02/18 13:01 Dose: 20 mg Gabapentin (Neurontin) 600 mg PO TID [facility] Stop: 08/03/18 21:01 Last Admin: 02/02/18 08:36 Dose: 600 mg Glucagon (Glucagen) 1 mg IM ONCE PRN PRN Reason: Hypoglycemia Stop: 08/03/18 21:07 Glucose (Gluctose) 15 gm PO ONCE PRN PRN Reason: Hypoglycemia Stop: 08/03/18 21:07 Glucose (Gluctose) 30 gm PO ONCE PRN PRN Reason: Hypoglycemia Stop: 08/03/18 21:07 Dextrose (Dextrose 5%) 1,000 mls @ 100 mls/hr IVC .Q10H PRN PRN Reason: HYPOGLYCEMIA Stop: 08/03/18 21:07 Parenteral Electrolytes (Plasma-Lyte A (Ph 7.4)) 1,000 mls @ 100 mls/hr IVC .Q10H [facility] Stop: 08/03/18 21:31 Last Admin: 02/02/18 08:29 Dose: 100 mls/hr Pantoprazole Sodium 40 mg/ (Sodium Chloride) 100 mls @ 20 mls/hr IVC .Q5H [facility] Stop: 08/04/18 07:31 Last Admin: 02/02/18 08:29 Dose: 20 mls/hr Insulin Human Lispro (Humalog) 0 units SQ HS [facility] PRN Reason: Protocol Stop: 08/03/18 21:16 Last Admin: 02/01/18 21:49 Dose: Not Given Insulin Human Lispro (Humalog) 0 units SQ TIDAC [facility] PRN Reason: Protocol Stop: 08/04/18 07:31 Last Admin: 02/02/18 12:08 Dose: Not Given Isosorbide Mononitrate (Imdur) 30 mg PO BID [facility] Stop: 08/03/18 21:01 Last Admin: 02/02/18 08:36 Dose: 30 mg Metoprolol Tartrate (Lopressor) 50 mg PO BID [facility] Stop: 08/03/18 21:01 Last Admin: 02/02/18 08:36 Dose: 50 mg Naloxone HCl (Narcan) 0.4 mg IVP Q2MIN PRN PRN Reason: SEE COMMENTS Stop: 08/03/18 20:45 Ondansetron HCl (Zofran Odt) 4 mg SL Q4HR PRN PRN Reason: Nausea And Vomiting Stop: 08/03/18 20:48 Last Admin: 02/01/18 21:34 Dose: 4 mg Oxycodone HCl (Oxycodone Oral Conc) 5 mg SL Q6HR PRN; Protocol PRN Reason: Pain Stop: 08/03/18 23:39 Ranolazine (Ranexa) 500 mg PO BID [facility] Stop: 08/03/18 21:01 Last Admin: 02/02/18 08:35 Dose: 500 mg Sodium Cl/Sod Bicarb/Potass Cl/PEG (Nulytely) 4,000 ml PO ONCE ONE PRN Reason: Protocol Stop: 02/02/18 17:01 Ticagrelor (Brilinta) 90 mg PO BID [facility] Stop: 08/04/18 12:46 Last Admin: 02/02/18 13:01 Dose: 90 mg Venlafaxine HCl (Effexor Xr) 75 mg PO DAILY [facility] Stop: 08/04/18 09:01 Last Admin: 02/02/18 08:36 Dose: 75 mg - Imaging and Cardiology Echo: report reviewed Cardiac cath: report reviewed Other Results: 12 hour tele: avg HR=71 SR. NSVT noted, max 2-3 beats - EKG Interpretation EKG results cardiology: personally reviewed Consult Discharge Plan - Plan Referrals: NONE,PCP [Primary Care Provider] - <Fred Ferguson - Last Filed: 02/02/18 14:19> Date of Encounter: 02/02/18 - Attending Attestation I have personally performed a face to face evaluation on this patient. I have reviewed and agree with the care plan. History and Exam by me shows: Recent PCI. Presented with dark stools and severe anemia. Agree with transfusion. Would hold xarelto temporarily but could not hold brillinta or ASA due to recent drug coated stent. Assessment and Plan Discussion w patient/family: The assessment and plan as outlined above was discussed with the patient and/or family members who expressed understanding and agreement. All questions were answered. Thank you for involving us in the care of your patient. Please call with any questions. History of Present Illness History of present illness: Ms. Costa is a 67 year old female All Systems Review: The remainder of the systems were reviewed and are negative Physical Examination Vital Signs, Last 4 Hours Temp Pulse Resp BP Pulse Ox 02/02/18 13:12 65 12 120/61 100 02/02/18 12:00 60 10 102/53 97 02/02/18 11:45 98.2 F 02/02/18 11:34 119/60 03/09/18 11:22 60 18 86/36 02/02/18 10:30 60 14 103/69 100 02/02/18 10:15 65 10 117/70 98 Results 02/02/18 04:00 02/02/18 04:00 Lab Results 02/02/18 02/02/18 02/02/18 00:20 04:00 04:00 WBC 8.5 Hgb 6.0 L* D 8.3 L D Hct 18.8 L 25.0 L Plt Count 207 Sodium 141 Potassium 3.4 L Chloride 108 H Carbon Dioxide 29 BUN 22 Creatinine 0.54 L Glucose 111 H Calcium 8.0 L
--- NOTE | 2018-02-02 14:16 | Internal Med Progress Note ---
<Yordy Mckinley - Last Filed: 02/02/18 14:33> Date of Encounter: 02/02/18 Time of Encounter: 10:45 - Assessment and plan (1) GI bleed Current Visit: Yes Status: Acute Assessment and plan: GI bleed in the setting of NSTEMI 01/24/2018 with 1 stent placed, taking Brilinta and aspirin. History of A. fib taking Xarelto. Hgb 4.5->8.3 with 3 units pRBC and 1 unit plasma. GI consulted. EGD completed this morning showed LA Grade A esophagitis, gastritis, and AVM treated with cautery. Plan for colonoscopy tomorrow morning. Clear liquid diet today, no red or purple. NPO at midnight. If unable tolerate NuLytely please use MiraLAX prep. If not clear by 6 AM, give 2 tap water enemas. Continue Protonix drip Transfuse PRBC as needed Qualifiers: GI bleed type/associated pathology: melena Qualified Code(s): K92.1 - Melena (2) Blood loss anemia Current Visit: No Status: Resolved Assessment and plan: See plan above. (3) Lactic acid acidosis Current Visit: Yes Status: Resolved Assessment and plan: LA improved from 7.6 to 1.2 (4) Elevated WBC count Current Visit: Yes Status: Resolved Assessment and plan: WBC improved from 12.6 to 8.5 Qualifiers: Qualified Code(s): D72.829 - Elevated white blood cell count, unspecified (5) Coronary artery disease Current Visit: Yes Status: Acute Assessment and plan: Recent NSTEMI on 01/24/18 s/p PTCA/GO to mLCx--recommend minimum 1 year of uninterrupted DAPT (asa + brilinta). Patient is high risk for stent thrombosis, continue DAPT. Xarelto held. Qualifiers: Coronary Disease-Associated Artery/Lesion type: [place] artery [place] vs. transplanted heart: [place] heart Associated angina: without angina Qualified Code(s): I25.10 - Atherosclerotic heart disease of [place] coronary artery without angina pectoris (6) COPD (chronic obstructive pulmonary disease) Current Visit: No Status: Chronic Assessment and plan: Continue supplemental O2 as needed, currently 3L via NC Continue albuterol. Qualifiers: COPD type: unspecified COPD Qualified Code(s): J44.9 - Chronic obstructive pulmonary disease, unspecified (7) History of pulmonary embolism Current Visit: No Status: Chronic Assessment and plan: History of PE and bilateral DVT on anticoagulation with Xarelto. Holding Xarelto due to G.I. bleed (8) Tobacco abuse Current Visit: No Status: Chronic Assessment and plan: Counselled on smoking cessation. (9) Chronic atrial fibrillation Current Visit: No Status: Chronic Assessment and plan: History of A fib taking Xarelto for anticoagulation and metoprolol for rate control. Holding Xarelto due to G.I. bleed (10) Type 2 diabetes mellitus Current Visit: No Status: Chronic Assessment and plan: History of diabetes taking metformin. Low-dose sliding scale insulin Accu checks Qualifiers: Diabetes mellitus shelter insulin use: without shelter use Diabetes mellitus complication status: with unspecified complications Qualified Code(s) : E11.8 - Type 2 diabetes mellitus with unspecified complications (11) DVT prophylaxis Current Visit: No Status: Acute Assessment and plan: EPCDs (12) AAA (abdominal aortic aneurysm) without rupture Current Visit: No Status: Chronic Assessment and plan: 3.1 x3 cm compared to 3 x 2.9 cm 02/22/2017 Recommend repeat imaging every 3 years. - Subjective Interval history: Patient seen and examined in bed. Spoke to patient's nurse and patient recently returned from EGD with plan for Colonoscopy tomorrow. Patient states currently she is "fine", denies acute distress. Denies chest pain, dyspnea, abdominal pain ; does note some nausea currently. Hgb was 4.5 on admission, after 4 units PRBC and 1 unit plasma patients Hgb improved to 8.3. Lactic acid improved from 7.6 to 1.2; WBC 12.6 to 8.5. - Constitutional Vitals: Temp Pulse Resp BP Pulse Ox 98.2 F 65 12 120/61 100 02/02/18 11:45 02/02/18 13:12 02/02/18 13:12 02/02/18 13:12 02/02/18 13:12 General appearance: Present: A&O X 3, pleasant, no acute distress, answers questions appropriately - Head Head exam: Present: atraumatic, normocephalic - Eye Eye exam: Present: conjuntiva pink, sclera anicteric - Neck Neck exam general surgery: Present: supple, trachea midline. Absent: lymphadenopathy - Respiratory Respiratory exam: Present: CTAB. Absent: accessory muscle use, rales, rhonchi, wheezes - Cardiovascular Cardiovascular exam: Present: RRR, +S1, +S2. Absent: diastolic murmur, gallop, rubs, systolic murmur - GI/Abdominal GI/Abdominal exam: Present: normal bowel sounds, soft, no peritoneal signs. Absent: distended, tenderness - Extremities Exam Extremities exam: Present: warm. Absent: calf tenderness, cyanotic, pedal edema - Neurological Exam Neurological exam: Present: alert, oriented X3, no focal deficits. Absent: facial droop, speech deficit - Skin Skin exam: Present: dry, intact Internal Medicine: Result - Labs CBC & Chem 7: 02/02/18 04:00 02/02/18 04:00 Labs: Short CBC 02/02/18 02/02/18 Range/Units 00:20 04:00 WBC 8.5 (4.3-11.1) K/mcL Hgb 6.0 L* D 8.3 L D (11.5-15.4) g/dL Hct 18.8 L 25.0 L (35.3-44.9) % Plt Count 207 (140-400) K/mcL Neutrophils # 5.8 (1.6-8.9) K/mcL BMP 02/02/18 04:00 Sodium 141 Potassium 3.4 L Chloride 108 H Carbon Dioxide 29 BUN 22 Creatinine 0.54 L Glucose 111 H Calcium 8.0 L - ABG Interpretation ABG results: PT/INR, D-dimer PT 43.3 Seconds (9.4-12.1) H* 02/01/18 15:08 - Impressions Impressions Abdomen/Pelvis CT 02/02/18 23:34 IMPRESSION: 1. Small left pleural effusion. 2. No acute abnormality within the abdomen and pelvis. 3. Colonic diverticulosis without evidence of acute diverticulitis. 4. Aneurysmal dilatation of the aorta measuring up to 3.1 cm. See follow-up guidelines below. RECOMMENDATIONS: Managing Abdominal Aortic Aneurysms 2.6-2.9 cm: Every 5 years* 3.0-3.4 cm: Every 3 years. 3.5-3.9 cm: Every 1 year. 4.0-4.4 cm: Every 1 year. Recommend vascular consultation. 4.5-5.4 cm: Every 6 months. Recommend vascular consultation. Greater than or equal to 5.5 cm: Referral to vascular surgeon. *For abdominal aortas with maximum diameter of 2.6-2.9 cm meeting criteria for AAA (>50% of proximal normal segment). Reference: J Vasc Surg. 2008;50(4 Suppl):S2-49 D/ / Gurwinder Parish MD / Gurwinder Parish MD Interpreting Provider: Gurwinder Parish MD Consult Discharge Plan - Plan Referrals: NONE,PCP [Primary Care Provider] - <Nirav Hernandez - Last Filed: 02/02/18 19:22> Date of Encounter: 02/02/18 - Assessment and plan (1) GI bleed Current Visit: Yes Status: Acute Qualifiers: GI bleed type/associated pathology: melena Qualified Code(s): K92.1 - Melena (2) Anemia Current Visit: Yes Status: Acute Qualifiers: Anemia type: iron deficiency Iron deficiency anemia type: chronic blood loss Qualified Code(s): D50.0 - Iron deficiency anemia secondary to blood loss (chronic) (3) Coronary artery disease Current Visit: Yes Status: Acute Qualifiers: Coronary Disease-Associated Artery/Lesion type: [place] artery [place] vs. transplanted heart: [place] heart Associated angina: without angina Qualified Code(s): I25.10 - Atherosclerotic heart disease of [place] coronary artery without angina pectoris (4) Lactic acid acidosis Current Visit: Yes Status: Resolved (5) Congestive heart failure Current Visit: No Status: Chronic Qualifiers: Qualified Code(s): I50.32 - Chronic diastolic (congestive) heart failure (6) Chronic atrial fibrillation Current Visit: No Status: Chronic (7) Type 2 diabetes mellitus Current Visit: No Status: Chronic Qualifiers: Diabetes mellitus terminal carman insulin use: without terminal carman use Diabetes mellitus complication status: with unspecified complications Qualified Code(s) : E11.8 - Type 2 diabetes mellitus with unspecified complications (8) HTN (hypertension) Current Visit: No Status: Chronic Qualifiers: Hypertension type: essential hypertension Qualified Code(s): I10 - Essential (primary) hypertension (9) Tobacco abuse Current Visit: No Status: Chronic - Constitutional Vitals: Temp Pulse Resp BP Pulse Ox 98.1 F 60 15 100/64 97 02/02/18 15:58 02/02/18 16:00 02/02/18 16:00 02/02/18 16:00 02/02/18 14:30 Internal Medicine: Result - Labs CBC & Chem 7: 02/02/18 04:00 02/02/18 04:00 Labs: Short CBC 02/02/18 02/02/18 Range/Units 00:20 04:00 WBC 8.5 (4.3-11.1) K/mcL Hgb 6.0 L* D 8.3 L D (11.5-15.4) g/dL Hct 18.8 L 25.0 L (35.3-44.9) % Plt Count 207 (140-400) K/mcL Neutrophils # 5.8 (1.6-8.9) K/mcL BMP 02/02/18 04:00 Sodium 141 Potassium 3.4 L Chloride 108 H Carbon Dioxide 29 BUN 22 Creatinine 0.54 L Glucose 111 H Calcium 8.0 L - ABG Interpretation ABG results: PT/INR, D-dimer PT 43.3 Seconds (9.4-12.1) H* 02/01/18 15:08 - Impressions Impressions Abdomen/Pelvis CT 02/02/18 23:34 IMPRESSION: 1. Small left pleural effusion. 2. No acute abnormality within the abdomen and pelvis. 3. Colonic diverticulosis without evidence of acute diverticulitis. 4. Aneurysmal dilatation of the aorta measuring up to 3.1 cm. See follow-up guidelines below. RECOMMENDATIONS: Managing Abdominal Aortic Aneurysms 2.6-2.9 cm: Every 5 years* 3.0-3.4 cm: Every 3 years. 3.5-3.9 cm: Every 1 year. 4.0-4.4 cm: Every 1 year. Recommend vascular consultation. 4.5-5.4 cm: Every 6 months. Recommend vascular consultation. Greater than or equal to 5.5 cm: Referral to vascular surgeon. *For abdominal aortas with maximum diameter of 2.6-2.9 cm meeting criteria for AAA (>50% of proximal normal segment). Reference: J Vasc Surg. 2009 Aug;50(4 Suppl):S2-49 D/ / Gurwinder Parish MD / Gurwinder Parish MD Interpreting Provider: Gurwinder Parish MD - Attending Attestation I examined this patient and my medical decision-making was reviewed with the Resident Physician on 02/02/18. I agree with the documented findings, disposition and treatment plan as described except to the extent set forth below. Ms Costa is currently admitted for acute GI bleed and anemia. She remains moderate to high risk due to potential for worsening clinical status Ms Costa is resting. She has received blood and is to have endoscopy tomorrow. No fever. o CP Exam Alert Comfortable Mucus membranes dry Heart not tachy No wheeze I/P 1. GI bleed 2 Anemia Further diagnoses and plan as above.
[2018-02-02] MEDS: OXYCODONE Oral CONC 10 MG/0.5 ML ORAL.SYG SL PRN ×2 (15:45→21:06)
[2018-02-02] MEDS ORDERED: SODIUM CHLORIDE/NAHCO3/KCL/PEG 4,000 ML SOLN.RECON PO ONE (17:00)
[2018-02-02] MEDS ORDERED: Plasma-Lyte A (PH 7.4) 1,000 ML IVC SCH (20:45)
[2018-02-02] MEDS: clonazePAM 1 MG TABLET PO PRN (21:05)
[2018-02-02 23:02] LABS: Hemoglobin 7.8 g/dL (11.5-15.4)
[2018-02-03] MEDS: Pantoprazole 40 MG in 0.9 % Sodium Chloride Mini Bag 100 ML IVC SCH ×2 (01:33→07:38)
[2018-02-03 03:53] LABS: Basophils % 0.2 %; Eosinophils # 0.1 K/mcL (0.0-0.6); Eosinophils % 1.2 %; Hematocrit 24.5 % (35.3-44.9); Hemoglobin 7.9 g/dL (11.5-15.4); Immature Granulocytes % 1.3 % (0-4); Lymphocytes # 1.4 K/mcL (0.6-4.6); Mean Corpuscular HGB Conc 32.2 g/dL (31.6-35.5); Mean Corpuscular Hemoglobin 27.9 pg (28.0-33.3); Mean Corpuscular Volume 86.6 fL (83.0-100.0); Mean Platelet Volume 9.6 fL (9.4-12.4); Monocytes # 0.4 K/mcL (0.0-1.3); Monocytes % 4.5 %; Neutrophils # 7.6 K/mcL (1.6-8.9); Platelet Count 215 K/mcL (140-400); Red Blood Count 2.83 M/mcL (3.82-4.97); Red Cell Distribution Width 16.4 % (11.5-14.5); Segmented Neutrophils % 78.8 %
[2018-02-03 04:10] LABS: BUN/Creatinine Ratio 21 (6-26); Blood Urea Nitrogen 10 mg/dL (8-23); Calcium 8.3 mg/dL (8.6-10.3); Carbon Dioxide 29 mEq/L (23-29); Chloride 106 mEq/L (98-107); Glucose 106 mg/dL (70-105); Osmolality,Calculated 287 (280-300); Potassium 3.5 mEq/L (3.5-5.1); Sodium 139 mEq/L (136-145); eGFR For African Americans > 60 (> 60); eGFR For Non-African Americans > 60 (> 60)
[2018-02-03] MEDS: OXYCODONE Oral CONC 10 MG/0.5 ML ORAL.SYG SL PRN ×4 (04:16→23:25)
[2018-02-03] MEDS: Insulin LISPRO 300 UNITS/3 ML VIAL SQ SCH ×4 (07:39→21:23)
--- NOTE | 2018-02-03 07:52 | Anesthesia Evaluation PreOp ---
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) Other Medical History: Bleeding (patient has melena; patient was transfused with 4U PRBC's and 1U plasma for hgb 4.5 on admission), Diabetes Type II (oral medications only) Anesthesia History: No Prior Anesthetic Complications Alcohol Use: none Drug use: none Medications and Allergies Albuterol Sulfate [Albuterol Inhaler] 2 puff IH Q4H PRN 10/22/16 [History] Furosemide [Lasix] 20 mg PO DAILY 10/22/16 [History] Gabapentin 600 mg PO TID 10/22/16 [History] Isosorbide DInitrate [Isosorbide Dinitrate] 30 mg PO BID 10/22/16 [History] Ranolazine [Ranexa] 500 mg PO BID 30 Days tab.er.12h 10/22/16 [Rx] Rivaroxaban [Xarelto] 20 mg PO DAILY 10/22/16 [History] Atorvastatin Calcium [Lipitor] 80 mg PO HS 02/16/17 [History] Metformin HCl [Glucophage] 1,000 mg PO BID 05/11/17 [History] Omeprazole [PriLOSEC] 40 mg PO BID #60 cap 08/18/17 [Rx] Amlodipine Besylate 10 mg PO DAILY 01/21/18 [History] Dicyclomine [Bentyl] 20 mg PO QID 01/21/18 [History] Metoprolol Tartrate 50 mg PO BID 01/21/18 [History] Ondansetron [Zofran ODT] 8 mg SL Q8H PRN 01/21/18 [History] Venlafaxine HCl [Venlafaxine HCl ER] 75 mg PO DAILY 01/21/18 [History] clonazePAM [Klonopin] 1 mg PO TID PRN 01/21/18 [History] Aspirin 81 mg PO DAILY #30 tab.chew 01/25/18 [Rx] Ticagrelor [Brilinta] 90 mg PO BID #60 tablet 01/25/18 [Rx] Oxygen 2.5 l NS AD 02/01/18 [History] 3 Allergy/AdvReac Type Severity Reaction Status Date / Time No Known Allergies Allergy Verified 01/21/18 11:53 - Meds/Allergy Pre-op Review Medications Reviewed: Yes Allergies Reviewed: Yes Beta Blockers on Current Med List: Yes Anesthesia Results - Labs 02/03/18 03:30 02/03/18 03:30 - Imaging EKG: report reviewed, image reviewed (SINUS RHYTHM WITH OCCASIONAL SUPRAVENTRICULAR PREMATURE COMPLEXES RIGHT AXIS DEVIATION RIGHT BUNDLE BRANCH BLOCK) Additional studies: TTE: Impressions: LVEF 50%. Mild concentric left ventricular hypertrophy. Mild segmental left ventricular systolic dysfunction. Mild left ventricular diastolic dysfunction. Atypical septal motion consistent with bundle branch block. Normal right ventricular structure and function. No evidence of pulmonary hypertension. No significant valvular dysfunction. 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
[2018-02-03] MEDS ORDERED: *HR* Propofol 200 MG/20 ML VIAL IVP ONE (08:19)
[2018-02-03] MEDS ORDERED: Lidocaine -MPF 2% 2 ML VIAL ONE (08:19)
[2018-02-03] MEDS ORDERED: *HR* Etomidate 40 MG/20 ML VIAL IVP ONE (08:19)
[2018-02-03] MEDS: clonazePAM 1 MG TABLET PO PRN ×3 (09:59→21:42)
[2018-02-03] MEDS: Venlafaxine XR (24 HR) 75 MG CAP.ER.24H PO SCH (09:59)
[2018-02-03] MEDS: Ranolazine 500 MG TAB.ER.12H PO SCH ×2 (09:59→21:34)
[2018-02-03] MEDS: Aspirin Enteric Coated 81 MG Tablet PO SCH (09:59)
[2018-02-03] MEDS: Gabapentin 300 MG CAPSULE PO SCH ×3 (09:59→21:33)
[2018-02-03] MEDS: Isosorbide MONOnitrate (24 HR) 30 MG TAB.ER.24H PO SCH ×2 (09:59→21:34)
[2018-02-03] MEDS: amLODIPine 5 MG TABLET PO SCH (09:59)
[2018-02-03] MEDS: *HR* Ticagrelor 90 MG TABLET PO SCH ×2 (09:59→21:33)
[2018-02-03] MEDS: Pantoprazole 40 MG VIAL IVP SCH (10:02)
--- NOTE | 2018-02-03 10:37 | Anesthesia Evaluation Post Op ---
Date of Encounter: 02/03/18 Time of Encounter: 08:50 - Vital Signs Vital Signs: Last Vital Signs Temp 97.9 F 02/03/18 07:35 Pulse 55 02/03/18 08:00 Resp 16 02/03/18 07:35 BP 117/51 02/03/18 07:35 Pulse Ox 98 02/03/18 07:35 - Lungs Lungs: Clear Ascult./Percussion - Airway Airway: Non-obstructed - Cardiovascular Regular Rate - Mental Status Mental Status: Alert & Oriented, Answers Appropriately - Pain Pain Scale: 2 - Nausea Vomiting Nausea Vomiting: Not Present - Hydration Hydration: NPO - Discharge PostOp Status: Discharge Patient to home
--- NOTE | 2018-02-03 12:28 | Electrocardiograph Report ---
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
--- NOTE | 2018-02-03 12:46 | Internal Med Progress Note ---
Date of Encounter: 02/03/18 Time of Encounter: 12:30 - Assessment and plan (1) GI bleed Current Visit: Yes Status: Acute Assessment and plan: GI bleed in the setting of NSTEMI 01/24/2018 with 1 stent placed, taking Brilinta and aspirin. History of A. fib and DVT/PE taking Xarelto. Most likely related to upper source of esophagitis and angiodysplasia. H/H monitoring. Area treated in stomach yesterday. Qualifiers: GI bleed type/associated pathology: melena Qualified Code(s): K92.1 - Melena (2) Anemia Current Visit: Yes Status: Acute Assessment and plan: H/H monitoring at this time Essentially stable. Will continue to transfuse as needed. Qualifiers: Anemia type: other cause Other causes of anemia: acute posthemorrhagic Qualified Code(s): D62 - Acute posthemorrhagic anemia (3) Coronary artery disease Current Visit: Yes Status: Acute Assessment and plan: Recent NSTEMI on 01/24/18 s/p PTCA/GO to mLCx--recommend minimum 1 year of uninterrupted DAPT (asa + brilinta). Patient is high risk for stent thrombosis, continue DAPT. Xarelto held. Qualifiers: Coronary Disease-Associated Artery/Lesion type: [place] artery [place] vs. transplanted heart: [place] heart Associated angina: without angina Qualified Code(s): I25.10 - Atherosclerotic heart disease of [place] coronary artery without angina pectoris (4) Angiodysplasia of stomach and duodenum with hemorrhage Current Visit: Yes Status: Acute Assessment and plan: Cauterized (5) Reflux esophagitis Current Visit: Yes Status: Chronic (6) Gastritis Current Visit: Yes Status: Chronic Qualifiers: Gastritis type: other gastritis Chronicity: chronic Gastritis bleeding: without bleeding Qualified Code(s): K29.50 - Unspecified chronic gastritis without bleeding (7) Congestive heart failure Current Visit: No Status: Chronic Assessment and plan: Chronic issue Qualifiers: Qualified Code(s): I50.32 - Chronic diastolic (congestive) heart failure (8) Chronic atrial fibrillation Current Visit: No Status: Chronic Assessment and plan: History of A fib taking Xarelto for anticoagulation and metoprolol for rate control. Holding Xarelto due to G.I. bleed (9) Type 2 diabetes mellitus Current Visit: No Status: Chronic Assessment and plan: History of diabetes taking metformin. Low-dose sliding scale insulin Accu checks Qualifiers: Diabetes mellitus halfway insulin use: without assistant terminal manager use Diabetes mellitus complication status: with circulatory complication Diabetes mellitus complication detail: with peripheral angiopathy without gangrene Qualified Code(s): E11.51 - Type 2 diabetes mellitus with diabetic peripheral angiopathy without gangrene (10) HTN (hypertension) Current Visit: No Status: Chronic Assessment and plan: Chronic issue Qualifiers: Hypertension type: essential hypertension Qualified Code(s): I10 - Essential (primary) hypertension (11) Tobacco abuse Current Visit: No Status: Chronic Assessment and plan: Counselled on smoking cessation. (12) History of pulmonary embolism Current Visit: Yes Status: Chronic Assessment and plan: Scan legs at this time as is off Xarelto. - Subjective Interval history: Ms Costa is currently admitted for anemia and acute GI bleed. She remains moderate to high risk due to potential for worsening clinical status. Ms Costa had colonoscopy today. No active bleeding seen. She relates a history of bilateral DVTs and PEs in 2014. No recurrence. No complaints in legs now except for some pain and numbness which is seemingly chronic. - Constitutional Vitals: Temp Pulse Resp BP Pulse Ox 97.4 F L 55 16 117/51 98 02/03/18 12:19 02/03/18 08:00 02/03/18 07:35 02/03/18 07:35 02/03/18 07:35 General appearance: Present: A&O X 3, pleasant, answers questions appropriately - Head Head exam: Present: normocephalic - Eye Eye exam: Present: conjuntiva pink - ENT ENT exam: Present: mucous membranes dry - Respiratory Respiratory exam: Present: CTAB. Absent: rales, rhonchi, wheezes - Cardiovascular Cardiovascular exam: Present: irregular rhythm, systolic murmur. Absent: tachycardia - GI/Abdominal GI/Abdominal exam: Present: soft. Absent: tenderness - Extremities Exam Extremities exam: Present: warm. Absent: tenderness Additional comments: Good pulse on LLE, diminished on R. - Neurological Exam Neurological exam: Present: alert, oriented X3 - Skin Skin exam: Present: dry, warm Internal Medicine: Result - Labs CBC & Chem 7: 02/03/18 03:30 02/03/18 03:30 Labs: Short CBC 02/02/18 02/03/18 Range/Units 22:50 03:30 WBC 9.7 (4.3-11.1) K/mcL Hgb 7.8 L 7.9 L (11.5-15.4) g/dL Hct 24.0 L 24.5 L (35.3-44.9) % Plt Count 215 (140-400) K/mcL Neutrophils # 7.6 (1.6-8.9) K/mcL BMP 02/03/18 03:30 Sodium 139 Potassium 3.5 Chloride 106 Carbon Dioxide 29 BUN 10 Creatinine 0.47 L Glucose 106 H Calcium 8.3 L - ABG Interpretation ABG results: PT/INR, D-dimer PT 43.3 Seconds (9.4-12.1) H* 02/01/18 15:08 Consult Discharge Plan - Plan Referrals: NONE,PCP [Primary Care Provider] -
[2018-02-03 18:15] LABS: Hematocrit 25.6 % (35.3-44.9)
[2018-02-04 08:01] LABS: Hematocrit 23.4 % (35.3-44.9); Hemoglobin 7.6 g/dL (11.5-15.4); Mean Corpuscular HGB Conc 32.5 g/dL (31.6-35.5); Mean Corpuscular Hemoglobin 28.4 pg (28.0-33.3); Mean Corpuscular Volume 87.3 fL (83.0-100.0); Mean Platelet Volume 9.5 fL (9.4-12.4); Platelet Count 227 K/mcL (140-400); Red Blood Count 2.68 M/mcL (3.82-4.97); Red Cell Distribution Width 17.2 % (11.5-14.5)
[2018-02-04] MEDS: Gabapentin 300 MG CAPSULE PO SCH ×3 (09:12→22:12)
[2018-02-04] MEDS: Venlafaxine XR (24 HR) 75 MG CAP.ER.24H PO SCH (09:12)
[2018-02-04] MEDS: Ranolazine 500 MG TAB.ER.12H PO SCH ×2 (09:12→22:13)
[2018-02-04] MEDS: Aspirin Enteric Coated 81 MG Tablet PO SCH (09:12)
[2018-02-04] MEDS: amLODIPine 5 MG TABLET PO SCH (09:12)
[2018-02-04] MEDS: Pantoprazole 40 MG VIAL IVP SCH (09:13)
[2018-02-04] MEDS: *HR* Ticagrelor 90 MG TABLET PO SCH ×2 (09:13→22:13)
[2018-02-04] MEDS: Isosorbide MONOnitrate (24 HR) 30 MG TAB.ER.24H PO SCH ×2 (09:13→22:13)
[2018-02-04] MEDS: Insulin LISPRO 300 UNITS/3 ML VIAL SQ SCH ×4 (09:13→22:20)
[2018-02-04] MEDS: clonazePAM 1 MG TABLET PO PRN ×3 (09:20→22:13)
[2018-02-04] MEDS: OXYCODONE Oral CONC 10 MG/0.5 ML ORAL.SYG SL PRN ×3 (09:20→22:13)
[2018-02-04 09:43] LABS: BUN/Creatinine Ratio 29 (6-26); Blood Urea Nitrogen 20 mg/dL (8-23); Calcium 8.6 mg/dL (8.6-10.3); Carbon Dioxide 25 mEq/L (23-29); Chloride 111 mEq/L (98-107); Glucose 115 mg/dL (70-105); Magnesium 1.9 mg/dL (1.6-2.6); Osmolality,Calculated 296 (280-300); Potassium 4.2 mEq/L (3.5-5.1); Sodium 141 mEq/L (136-145); eGFR For African Americans > 60 (> 60); eGFR For Non-African Americans > 60 (> 60)
[2018-02-04] MEDS ORDERED: 0.9 % Sodium Chloride 250 ML ONE (10:56)
--- NOTE | 2018-02-04 15:52 | Internal Med Progress Note ---
Date of Encounter: 02/04/18 Time of Encounter: 10:00 - Assessment and plan (1) GI bleed Current Visit: Yes Status: Acute Assessment and plan: GI bleed in the setting of NSTEMI 01/24/2018 with 1 stent placed, taking Brilinta and aspirin. History of A. fib and DVT/PE taking Xarelto. No further bleeding has been noted. H/H down a little so will give remaining blood. Qualifiers: GI bleed type/associated pathology: melena Qualified Code(s): K92.1 - Melena (2) Anemia Current Visit: Yes Status: Acute Assessment and plan: Hemoglobin lower at this time. 2 units PRBCs today. Recheck in AM. Qualifiers: Anemia type: other cause Other causes of anemia: acute posthemorrhagic Qualified Code(s): D62 - Acute posthemorrhagic anemia (3) Coronary artery disease Current Visit: Yes Status: Acute Assessment and plan: Recent NSTEMI on 01/24/18 s/p PTCA/GO to mLCx--recommend minimum 1 year of uninterrupted DAPT (asa + brilinta). Patient is high risk for stent thrombosis, continue DAPT. Xarelto held. Qualifiers: Coronary Disease-Associated Artery/Lesion type: [place] artery [place] vs. transplanted heart: [place] heart Associated angina: without angina Qualified Code(s): I25.10 - Atherosclerotic heart disease of [place] coronary artery without angina pectoris (4) Angiodysplasia of stomach and duodenum with hemorrhage Current Visit: Yes Status: Acute Assessment and plan: Cauterized yesterday. (5) Reflux esophagitis Current Visit: Yes Status: Chronic Assessment and plan: Stable at this time. (6) Gastritis Current Visit: Yes Status: Chronic Assessment and plan: Follow H/H Qualifiers: Gastritis type: other gastritis Chronicity: chronic Gastritis bleeding: without bleeding Qualified Code(s): K29.50 - Unspecified chronic gastritis without bleeding (7) Congestive heart failure Current Visit: No Status: Chronic Assessment and plan: Chronic issue Qualifiers: Qualified Code(s): I50.32 - Chronic diastolic (congestive) heart failure (8) Chronic atrial fibrillation Current Visit: No Status: Chronic Assessment and plan: History of A fib taking Xarelto for anticoagulation and metoprolol for rate control. Holding Xarelto due to G.I. bleed Anticipate restart Xarelto in the future. 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 care insulin use: without director long term care use Diabetes mellitus complication status: with circulatory complication Diabetes mellitus complication detail: with peripheral angiopathy without gangrene Qualified Code(s): E11.51 - Type 2 diabetes mellitus with diabetic peripheral angiopathy without gangrene (10) HTN (hypertension) Current Visit: No Status: Chronic Assessment and plan: Chronic issue Qualifiers: Hypertension type: essential hypertension Qualified Code(s): I10 - Essential (primary) hypertension (11) Tobacco abuse Current Visit: No Status: Chronic Assessment and plan: Counselled on smoking cessation. (12) History of pulmonary embolism Current Visit: Yes Status: Chronic Assessment and plan: Scan legs at this time as is off Xarelto. - Subjective Interval history: Ms Costa is currently admitted for anemia and acute GI bleed. She remains moderate to high risk due to potential for worsening clinical status. Ms Costa is up in her room. She is feeling OK though her H/H down a little today. No DVT noted in her legs. No CP or SOB. No abd pain or further bleeding noted. - Constitutional Vitals: Temp Pulse Resp BP Pulse Ox 98.9 F 55 16 106/55 99 02/04/18 13:50 02/04/18 13:50 02/04/18 13:50 02/04/18 13:50 02/04/18 13:50 General appearance: Present: A&O X 3, pleasant, answers questions appropriately - Head Head exam: Present: normocephalic - Eye Eye exam: Present: conjuntiva pink - ENT ENT exam: Present: mucous membranes moist - Respiratory Respiratory exam: Present: CTAB. Absent: rales, rhonchi, wheezes - Cardiovascular Cardiovascular exam: Present: RRR. Absent: tachycardia - GI/Abdominal GI/Abdominal exam: Present: soft. Absent: tenderness - Extremities Exam Extremities exam: Present: warm. Absent: tenderness - Neurological Exam Neurological exam: Present: alert, oriented X3 - Skin Skin exam: Present: dry, warm Internal Medicine: Result - Labs CBC & Chem 7: 02/04/18 07:00 02/04/18 07:00 Labs: Short CBC 02/03/18 02/04/18 Range/Units 17:56 07:00 WBC 7.9 (4.3-11.1) K/mcL Hgb 8.0 L 7.6 L (11.5-15.4) g/dL Hct 25.6 L 23.4 L (35.3-44.9) % Plt Count 227 (140-400) K/mcL BMP 02/04/18 07:00 Sodium 141 Potassium 4.2 Chloride 111 H Carbon Dioxide 25 BUN 20 Creatinine 0.69 Glucose 115 H Calcium 8.6 - ABG Interpretation ABG results: PT/INR, D-dimer PT 43.3 Seconds (9.4-12.1) H* 02/01/18 15:08 Consult Discharge Plan - Plan Referrals: NONE,PCP [Primary Care Provider] -
[2018-02-04 18:23] LABS: Hemoglobin 9.7 g/dL (11.5-15.4)
[2018-02-05 05:39] LABS: Hematocrit 29.9 % (35.3-44.9); Hemoglobin 9.3 g/dL (11.5-15.4); Mean Corpuscular HGB Conc 31.1 g/dL (31.6-35.5); Mean Corpuscular Hemoglobin 27.8 pg (28.0-33.3); Mean Corpuscular Volume 89.3 fL (83.0-100.0); Mean Platelet Volume 8.9 fL (9.4-12.4); Platelet Count 227 K/mcL (140-400); Red Blood Count 3.35 M/mcL (3.82-4.97); Red Cell Distribution Width 16.4 % (11.5-14.5)
[2018-02-05 05:57] LABS: BUN/Creatinine Ratio 31 (6-26); Blood Urea Nitrogen 19 mg/dL (8-23); Calcium 8.8 mg/dL (8.6-10.3); Carbon Dioxide 32 mEq/L (23-29); Chloride 109 mEq/L (98-107); Glucose 106 mg/dL (70-105); Osmolality,Calculated 293 (280-300); Potassium 4.3 mEq/L (3.5-5.1); Sodium 140 mEq/L (136-145); eGFR For African Americans > 60 (> 60); eGFR For Non-African Americans > 60 (> 60)
[2018-02-05] MEDS: *HR* Ticagrelor 90 MG TABLET PO SCH (08:05)
[2018-02-05] MEDS: Aspirin Enteric Coated 81 MG Tablet PO SCH (08:05)
[2018-02-05] MEDS: Venlafaxine XR (24 HR) 75 MG CAP.ER.24H PO SCH (08:05)
[2018-02-05] MEDS: Gabapentin 300 MG CAPSULE PO SCH (08:05)
[2018-02-05] MEDS: amLODIPine 5 MG TABLET PO SCH (08:06)
[2018-02-05] MEDS: Isosorbide MONOnitrate (24 HR) 30 MG TAB.ER.24H PO SCH (08:06)
[2018-02-05] MEDS: Ranolazine 500 MG TAB.ER.12H PO SCH (08:06)
[2018-02-05] MEDS: Pantoprazole 40 MG VIAL IVP SCH ×2 (08:07→08:24)
[2018-02-05] MEDS: OXYCODONE Oral CONC 10 MG/0.5 ML ORAL.SYG SL PRN (08:21)
[2018-02-05] MEDS: clonazePAM 1 MG TABLET PO PRN (08:21)
[2018-02-05] MEDS: Insulin LISPRO 300 UNITS/3 ML VIAL SQ SCH (08:23)
--- NOTE | 2018-02-05 08:37 | Cardiology Progress Note ---
Date of Encounter: 02/05/18 Time of Encounter: 08:00 Assessment and Plan (1) GI bleed Current Visit: Yes Status: Acute Acute anemia secondary to GI bleed. HgB upon admission 4.5. Reports 4-5 day hx of melena prior to admission. Recent NSTEMI on 01/24/18 s/p PTCA/GO to mLCx--recommend minimum 1 year of uninterrupted DAPT (asa + brilinta). s/p EGD and colonscopy. S/p cauterization of angiodysplasia of stomach and duodenum--GI following. Patient is high risk for stent thrombosis if DAPT uninterrupted. H/H has remained stable while on DAPT--denies further melena. Agree with discontinuation of Xarelto--pt. aware of increased risk for CVA. (Hx of PAF). Cardiology will sign-off, will coordinate outpatient f/u. Qualifiers: GI bleed type/associated pathology: melena Qualified Code(s): K92.1 - Melena (2) Coronary artery disease Current Visit: Yes Status: Acute Recent NSTEMI s/p PCI 01/24/18. Uninterrupted DAPT for minimum of 1 year (asa + brilinta). Continue asa, statin, BB, brilinta, ranexa, and nitrates. Qualifiers: Coronary Disease-Associated Artery/Lesion type: [place] artery [place] vs. transplanted heart: [place] heart Associated angina: without angina Qualified Code(s): I25.10 - Atherosclerotic heart disease of [place] coronary artery without angina pectoris Discussion w patient/family: The assessment and plan as outlined above was discussed with the patient and/or family members who expressed understanding and agreement. All questions were answered. Thank you for involving us in the care of your patient. Please call with any questions. The patient will be discussed and reviewed with Dr. Avery; changes to be made accordingly. Cardiology will sign-off, changes to be made accordingly. Subjective Principal diagnosis: GI bleed, recent NSTEMI Interval history: Seen and examined. No recurrent melena reported. HgB remains stable. Denies chest pain or discomfort. Objective Vital Signs, Last 4 Hours Temp Pulse Resp BP Pulse Ox 02/05/18 07:10 97.7 F 58 15 109/71 94 General: Conversant, No Apparent Distress HEENT: Atraumatic, Normocephaly, Mucus Membranes Moist Neck: No JVD, Normal carotid pulses Cardiac: Reg Rate and Rhythm, Normal S1 and S2, No Murmur Lungs: Normal Breath Sounds, No Wheeze, Rales, Rhonchi Neuro: Alert and responsive, No focal deficits noted Abdomen: Soft, Non-Tender Skin: No rashes noted on visualized skin Musculoskeletal: No Chest Wall Tenderness Extremities: No Clubbing, No Cyanosis, No Edema, Normal Pulses Results 02/05/18 05:24 02/05/18 05:24 Lab Results 02/04/18 02/04/18 02/05/18 07:00 18:05 05:24 WBC 6.6 Hgb 9.7 L D 9.3 L Hct 31.0 L 29.9 L Plt Count 227 Sodium 141 Potassium 4.2 Chloride 111 H Carbon Dioxide 25 BUN 20 Creatinine 0.69 Glucose 115 H Calcium 8.6 Magnesium 1.9 02/05/18 05:24 WBC Hgb Hct Plt Count Sodium 140 Potassium 4.3 Chloride 109 H Carbon Dioxide 32 H BUN 19 Creatinine 0.61 Glucose 106 H Calcium 8.8 Magnesium Active Medications Albuterol Sulfate (Albuterol Inhaler) 2 puff IH Q4H PRN PRN Reason: Shortness Of Breath Stop: 08/03/18 19:36 Amlodipine Besylate (Norvasc) 10 mg PO DAILY [facility] Stop: 08/04/18 09:01 Last Admin: 02/05/18 08:06 Dose: 10 mg Aspirin (Aspirin Ec) 81 mg PO DAILY [facility] Stop: 08/04/18 12:46 Last Admin: 02/05/18 08:05 Dose: 81 mg Atorvastatin Calcium (Lipitor) 80 mg PO HS [facility] Stop: 08/03/18 21:01 Last Admin: 02/04/18 22:13 Dose: 80 mg Clonazepam (Klonopin) 1 mg PO TID PRN PRN Reason: Anxiety Stop: 08/03/18 19:36 Last Admin: 02/05/18 08:21 Dose: 1 mg Dextrose/Water (Dextrose 50% (Syg)) 25 ml IVP AD PRN PRN Reason: Hypoglycemia Stop: 08/03/18 21:07 Dicyclomine HCl (Bentyl) 20 mg PO QID [facility] Stop: 08/03/18 21:01 Last Admin: 02/05/18 08:05 Dose: 20 mg Gabapentin (Neurontin) 600 mg PO TID [facility] Stop: 08/03/18 21:01 Last Admin: 02/05/18 08:05 Dose: 600 mg Glucagon (Glucagen) 1 mg IM ONCE PRN PRN Reason: Hypoglycemia Stop: 08/03/18 21:07 Glucose (Gluctose) 15 gm PO ONCE PRN PRN Reason: Hypoglycemia Stop: 08/03/18 21:07 Glucose (Gluctose) 30 gm PO ONCE PRN PRN Reason: Hypoglycemia Stop: 08/03/18 21:07 Dextrose (Dextrose 5%) 1,000 mls @ 100 mls/hr IVC .Q10H PRN PRN Reason: HYPOGLYCEMIA Stop: 08/03/18 21:07 Insulin Human Lispro (Humalog) 0 units SQ HS [facility] PRN Reason: Protocol Stop: 08/03/18 21:16 Last Admin: 02/04/18 22:20 Dose: Not Given Insulin Human Lispro (Humalog) 0 units SQ TIDAC [facility] PRN Reason: Protocol Stop: 08/04/18 07:31 Last Admin: 02/05/18 08:23 Dose: Not Given Isosorbide Mononitrate (Imdur) 30 mg PO BID [facility] Stop: 08/03/18 21:01 Last Admin: 02/05/18 08:06 Dose: 30 mg Metoprolol Tartrate (Lopressor) 50 mg PO BID [facility] Stop: 08/03/18 21:01 Last Admin: 02/05/18 08:06 Dose: 50 mg Naloxone HCl (Narcan) 0.4 mg IVP Q2MIN PRN PRN Reason: SEE COMMENTS Stop: 08/03/18 20:45 Ondansetron HCl (Zofran Odt) 4 mg SL Q4HR PRN PRN Reason: Nausea And Vomiting Stop: 08/03/18 20:48 Last Admin: 02/01/18 21:34 Dose: 4 mg Oxycodone HCl (Oxycodone Oral Conc) 5 mg SL Q6HR PRN; Protocol PRN Reason: Pain Stop: 08/03/18 23:39 Last Admin: 02/05/18 08:21 Dose: 5 mg Pantoprazole Sodium (Protonix) 40 mg IVP DAILY [facility] Stop: 08/05/18 09:31 Last Admin: 02/05/18 08:24 Dose: Not Given Ranolazine (Ranexa) 500 mg PO BID [facility] Stop: 08/03/18 21:01 Last Admin: 02/05/18 08:06 Dose: 500 mg Ticagrelor (Brilinta) 90 mg PO BID [facility] Stop: 08/04/18 12:46 Last Admin: 02/05/18 08:05 Dose: 90 mg Venlafaxine HCl (Effexor Xr) 75 mg PO DAILY [facility] Stop: 08/04/18 09:01 Last Admin: 02/05/18 08:05 Dose: 75 mg - Imaging and Cardiology Echo: report reviewed Cardiac cath: report reviewed Other Results: 12 hour tele: avg HR=60 SR. No PAF noted. - EKG Interpretation EKG results cardiology: personally reviewed - VTE Documentation of Mechanical Device: Intermittent pneumatic compression device Consult Discharge Plan - Plan Referrals: NONE,PCP [Primary Care Provider] -
--- NOTE | 2018-02-05 09:37 | Discharge Summary ---
Date of Encounter: 02/05/18 Time of Encounter: 11:00 - Discharge Diagnosis (1) GI bleed Priority: Primary Status: Acute Qualifiers: GI bleed type/associated pathology: melena Qualified Code(s): K92.1 - Melena (2) Anemia Priority: Primary Status: Acute Qualifiers: Anemia type: other cause Other causes of anemia: acute posthemorrhagic Qualified Code(s): D62 - Acute posthemorrhagic anemia (3) Angiodysplasia of stomach and duodenum with hemorrhage Priority: Secondary Status: Acute (4) Coronary artery disease Priority: Secondary Status: Chronic Qualifiers: Coronary Disease-Associated Artery/Lesion type: [place] artery [place] vs. transplanted heart: [place] heart Associated angina: without angina Qualified Code(s): I25.10 - Atherosclerotic heart disease of [place] coronary artery without angina pectoris (5) Reflux esophagitis Priority: Secondary Status: Chronic (6) Gastritis Priority: Secondary Status: Chronic Qualifiers: Gastritis type: other gastritis Chronicity: chronic Gastritis bleeding: without bleeding Qualified Code(s): K29.50 - Unspecified chronic gastritis without bleeding (7) Chronic atrial fibrillation Priority: Secondary Status: Chronic (8) Type 2 diabetes mellitus Priority: Secondary Status: Chronic 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: 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 Diabetes mellitus complication status: with circulatory complication Diabetes mellitus complication detail: with peripheral angiopathy without gangrene Qualified Code(s): E11.51 - Type 2 diabetes mellitus with diabetic peripheral angiopathy without gangrene (9) HTN (hypertension) Priority: Secondary Status: Chronic Qualifiers: Hypertension type: essential hypertension Qualified Code(s): I10 - Essential (primary) hypertension (10) Tobacco abuse Priority: Secondary Status: Chronic (11) History of pulmonary embolism Priority: Secondary Status: Chronic (12) Chronic diastolic (congestive) heart failure Priority: Secondary Status: Chronic Hospital course: Ms. Costa is a 67 year old female with hx of PVD and CAD presented to ED with weakness and rectal bleeding. She was found to be very anemic and was subsequently admitted. She had been recently put on ASA and Brilinta for stent and was on Xarelto for a fib. Ms Costa was admitted to ICU. She was seen by GI and had EGD with no overt bleeding. She was transfused and the next day had colonoscopy with AVM bleeding. This was cauterized. She was sent to med floor and had more blood transfusion. Today she feels well. Her H/H is stable and her vitals are good. At this time she is ready for discharge home. Discharge discussed with: patient Time spent discussing smoking cessation with patient: 3 to 10 minutes - Time Spent with Patient Total time spent providing and/or coordinating discharge services: 39min - Discharge Medications Prescriptions: Albuterol Neb [Proventil Neb] 2.5 mg IH Q4HR PRN #100 vial.neb PRN Reason: Dyspnea Oxycodone HCl/Acetaminophen [Percocet 10-325 mg Tablet] 1 each PO TID PRN 7 Days #20 tablet PRN Reason: Pain Home Medications: Albuterol Sulfate [Albuterol Inhaler] 2 puff IH Q4H PRN 10/22/16 [History] Furosemide [Lasix] 20 mg PO DAILY 10/22/16 [History] Gabapentin 600 mg PO TID 10/22/16 [History] Isosorbide DInitrate [Isosorbide Dinitrate] 30 mg PO BID 10/22/16 [History] Ranolazine [Ranexa] 500 mg PO BID 30 Days tab.er.12h 10/22/16 [Rx] Atorvastatin Calcium [Lipitor] 80 mg PO HS 02/16/17 [History] Metformin HCl [Glucophage] 1,000 mg PO BID 05/11/17 [History] Omeprazole [PriLOSEC] 40 mg PO BID #60 cap 08/18/17 [Rx] Amlodipine Besylate 10 mg PO DAILY 01/21/18 [History] Dicyclomine [Bentyl] 20 mg PO QID 01/21/18 [History] Metoprolol Tartrate 50 mg PO BID 01/21/18 [History] Ondansetron [Zofran ODT] 8 mg SL Q8H PRN 01/21/18 [History] Venlafaxine HCl [Venlafaxine HCl ER] 75 mg PO DAILY 01/21/18 [History] clonazePAM [Klonopin] 1 mg PO TID PRN 01/21/18 [History] Aspirin 81 mg PO DAILY #30 tab.chew 01/25/18 [Rx] Ticagrelor [Brilinta] 90 mg PO BID #60 tablet 01/25/18 [Rx] Oxygen 2.5 l NS AD 02/01/18 [History] Albuterol Neb [Proventil Neb] 2.5 mg IH Q4HR PRN #100 vial.neb 02/05/18 [Rx] Oxycodone HCl/Acetaminophen [Percocet 10-325 mg Tablet] 1 each PO TID PRN 7 Days #20 tablet 02/05/18 [Rx] Allergies/Adverse Reactions: 3 Allergy/AdvReac Type Severity Reaction Status Date / Time No Known Allergies Allergy Verified 01/21/18 11:53 Date of admission: 02/01/18 21:35 Primary care physician: PCP NONE Consults: 02/01/18 23:34 Consult to Cardiology [CONS] Routine Comment: Consulting Provider: Cardiology [facility] Reason for Consult: GI bleed in setting of NSTEMI 01/24/2018 taking brilinta asa lipitor Call Completed: No 02/05/18 09:04 Consult to [employer] [CONS] Routine Reason for SW Consult: Patient to be discharged today. Has no PCP. Needs help with this please. Discharging clinician: Nirav Hernandez Anticipated date of discharge: 02/05/18 - Constitutional Vitals: Temp Pulse Resp BP Pulse Ox 97.7 F 58 15 109/71 94 02/05/18 07:10 02/05/18 07:10 02/05/18 07:10 02/05/18 07:10 02/05/18 07:10 General appearance: Present: A&O X 3, pleasant, answers questions appropriately - Head Head exam: Present: normocephalic - Eye Eye exam: Present: EOMI, conjuntiva pink - ENT ENT exam: Present: mucous membranes moist - Respiratory Respiratory exam: Present: CTAB. Absent: rales, rhonchi, wheezes - Cardiovascular Cardiovascular exam: Present: RRR. Absent: tachycardia - GI/Abdominal GI/Abdominal exam: Present: soft. Absent: tenderness - Extremities Exam Extremities exam: Present: warm. Absent: tenderness - Neurological Exam Neurological exam: Present: alert, oriented X3, no focal deficits - Skin Skin exam: Present: dry, warm - Patient Status Disposition: Home, Self-Care Condition: Good Functional capacity at discharge: independent ambulation Overall status at discharge: patient is progressing back to baseline - Discharge Instructions Instructions: Gastrointestinal Bleeding (DC) Follow Up With: [facility] [Other] - 02/19/18 3:10 pm (Please bring your photo ID and insurance card. Please show up around 3:00 to fill out your paperwork. Thank you.) Additional Instructions: Follow-up appointments: If there is not an appointment listed below, please call your physician and schedule a follow-up appointment. If you have congestive heart failure and your symptoms return, make an appointment with your physician. Medication List: Carry an up to date list of medications you are taking at all time. We have given you an updated medication list including any new medications that you have been prescribed. Please provide that list to your primary provider Symptoms: If your condition changes or you experience any of the following symptoms, notify your physician immediately: Unusual or worsening pain, fever, persistent nausea and vomiting, bleeding, increase in swelling (especially in your legs), sudden weight gain, extreme dizziness, chest pain, increased drainage or redness from a wound or incision. Go to the emergency department if you experience a problem with breathing. Weights: If you have a history of swelling or shortness of breath, weigh yourself daily and notify your physician if you have a weight gain of two or more pounds in one day or 5 or more pounds in a week. If you experience any of the warning signs for stroke: Sudden numbness or weakness of the face, arm or leg; especially on one side of the body, sudden confusion, trouble speaking or understanding, sudden trouble seeing in one or both eyes, sudden trouble walking, dizziness, loss of balance or coordination, sudden sever headache with no cause; Call 911 or go to the emergency room. Stroke is a medical emergency. Some risk factors for stroke: Age, cigarette smoking, diabetes, excessive alcohol consumption, family history , high blood pressure, overweight, physical inactivity, prior stroke, heart attack, diagnosis of carotid artery stenosis or other artery disease. If you smoke, STOP: Smoking or tobacco use significantly increases your risk of heart and lung disease. Your chance of disease greatly increases if you continue to smoke. For more information, call the [employer] tobacco quit line for smoking cessation 8- QUIT-NOW ( ) Hold Xarelto till 02/08. Ok to restart 02/09 - Diet and Activity Activity: increase activity as tolerated Diet: low fat, low cholesterol, low salt diet - VTE Documentation of Mechanical Device: Intermittent pneumatic compression device
[2018-02-05 11:03] VITALS: BP 109/70
== END 2018-02-05 11:52 | disposition home or self-care (01) | DRG 377 ==
LOC: EMEROO 14:24 → 3BNU 14:24 → ICNU 20:10 → SUATTDRO 21:35 → 3ANU 02-03 14:57
PROVIDERS: ADMIT Family Medicine; ATTEND Internal Medicine

== ENCOUNTER 2018-02-12 15:04 | Inpatient (IN) ==
[2018-02-12] MEDS ORDERED: 0.9 % Sodium Chloride 1,000 ML IVC ONE (15:31)
[2018-02-12] MEDS ORDERED: Ondansetron 4 MG/2 ML VIAL IVP ONE (15:31)
[2018-02-12 16:15] LABS: Eosinophils # 0.6 K/mcL (0.0-0.6); Eosinophils % 11.8 %; Hematocrit 21.5 % (35.3-44.9); Immature Granulocytes % 0.2 % (0-4); Lymphocytes # 1.2 K/mcL (0.6-4.6); Lymphocytes % 23.2 %; Mean Corpuscular HGB Conc 31.2 g/dL (31.6-35.5); Mean Corpuscular Hemoglobin 27.5 pg (28.0-33.3); Mean Corpuscular Volume 88.1 fL (83.0-100.0); Mean Platelet Volume 9.5 fL (9.4-12.4); Monocytes # 0.4 K/mcL (0.0-1.3); Monocytes % 8.1 %; Neutrophils # 2.9 K/mcL (1.6-8.9); Platelet Count 265 K/mcL (140-400); Red Blood Count 2.44 M/mcL (3.82-4.97); Red Cell Distribution Width 15.4 % (11.5-14.5); Segmented Neutrophils % 56.7 %
--- NOTE | 2018-02-12 16:20 | Emergency Department Note ---
Disposition Clinical Impression: Profound anemia GIB (gastrointestinal bleeding) Qualifiers: GI bleed type/associated pathology: unspecified gastrointestinal hemorrhage type Qualified Code(s): K92.2 - Gastrointestinal hemorrhage, unspecified Disposition: Admitted As Inpatient Condition: Fair Referrals: NONE,PCP [Primary Care Provider] - Forms: ED Satisfaction Letter Time of Disposition: 17:08 General Adult HPI - General Chief complaint: ED GI Bleed Stated complaint: low BP, black stool Time Seen by Provider: 02/12/18 15:27 Source: EMS Nursing Notes Reviewed: Yes Vital Signs Reviewed: Yes - History of Present Illness HPI Narrative: History of present illness: 67-year-old elderly female complected by EMS for lightheadedness and shortness of breath. And dark stools. Patient was just discharged from [facility] on February 05 for lower GI bleed and she said she had some sort of scope procedure done which "cauterized" the bleeding. Patient states she received 4 units of PRBCs during her admission. And she says since she was discharged she has felt poorly short of breath lightheaded and very fatigued. Patient does appear very pale with very pale conjunctival mucosa. She again states she has been having these dark stools pretty much since she has been discharge from hospital. Patient denies any chest pain vomiting fever or chills. Pain Scale: 10 - Related Data Home Medications Medication Instructions Recorded Confirmed Albuterol Sulfate [Albuterol 2 puff IH Q4H PRN 10/22/16 02/12/18 Inhaler] Furosemide [Lasix] 20 mg PO DAILY 10/22/16 02/12/18 Gabapentin 600 mg PO TID 10/22/16 02/12/18 Isosorbide DInitrate [Isosorbide 30 mg PO BID 10/22/16 02/12/18 Dinitrate] Atorvastatin Calcium [Lipitor] 80 mg PO HS 02/16/17 02/12/18 Metformin HCl [Glucophage] 1,000 mg PO BID 05/11/17 02/12/18 Dicyclomine [Bentyl] 20 mg PO QID 01/21/18 02/12/18 Metoprolol Tartrate 50 mg PO BID 01/21/18 02/12/18 Ondansetron [Zofran ODT] 8 mg SL Q8H PRN 01/21/18 02/12/18 Venlafaxine HCl [Venlafaxine HCl 75 mg PO DAILY 01/21/18 02/12/18 ER] clonazePAM [Klonopin] 1 mg PO TID PRN 01/21/18 02/12/18 Oxygen 2.5 l NS AD 02/01/18 02/12/18 Previous Rx's Medication Instructions Recorded Ranolazine [Ranexa] 500 mg PO BID 30 Days tab.er.12h 10/22/16 Omeprazole [PriLOSEC] 40 mg PO BID #60 cap 08/18/17 Aspirin 81 mg PO DAILY #30 tab.chew 01/25/18 Ticagrelor [Brilinta] 90 mg PO BID #60 tablet 01/25/18 Albuterol Neb [Proventil Neb] 2.5 mg IH Q4HR PRN #100 vial.neb 02/05/18 Oxycodone HCl/Acetaminophen 1 each PO TID PRN 7 Days #20 tablet 02/05/18 [Percocet 10-325 mg Tablet] Allergies Allergy/AdvReac Type Severity Reaction Status Date / Time No Known Allergies Allergy Verified 01/21/18 11:53 All systems ED: reviewed and negative except as stated. Constitutional: Reports: weakness Gastrointestinal: Reports: nausea, other (Dark stools) Past Medical History - Past Medical History Attestation: Yes The following information was validated with the patient. Source: patient Medical history: Reports: arthritis, atrial fibrillation, COPD, coronary artery disease, DVT, hyperlipidemia, hypertension, myocardial infarction, peripheral artery disease, other Surgical history: Reports: angioplasty/stent, cholecystectomy, hysterectomy, knee replacement, other, vascular surgery, LE bypass, LE vascular intervention Psychiatric history: Reports: anxiety, depression WELLNESS ASSISTANT history: Reports: no WELLNESS ASSISTANT history - Social History Smoking Status: Current every day smoker Smokeless Tobacco Status: No Alcohol use: Reports: none Drug use: Reports: none Physical Exam - General Limitations: no limitations General appearance: alert, in distress - Head Head exam: atraumatic, normocephalic - Eye Eye exam: Present: normal appearance, PERRL, other (Conjunctival pallor) - ENT ENT exam: normal exam, normal oropharynx - Neck Neck exam: Present: normal inspection, full ROM - Chest Chest inspection: Present: normal inspection, symmetric chest wall rise - Respiratory Respiratory exam: Present: normal lung sounds bilaterally - Cardiovascular Cardiovascular exam: Present: regular rate, normal rhythm - Abdominal Exam Abdominal exam: Present: soft, Non-Tender - Rectal Exam Nib Inspector present during exam: Yes Rectal exam: Present: normal inspection, normal rectal tone, heme (+) stool, black stool - Extremities Exam Extremities exam: Present: normal inspection, full ROM - Expanded Lower Extremity Exam Neurovascular/Tendon exam: Present: normal capillary refill Gait: not tested/not observed - Back Exam Back exam: Present: normal inspection - Neurological Exam Neurological exam: Present: alert, oriented X3 - Psychiatric Psychiatric exam: Present: normal affect, normal mood - Skin Skin exam: Present: dry, intact, pallor Course - Reevaluation(s) Reevaluation #1: On physical examination patient had a digital rectal examination which was strongly guaiac positive with dark to almost black stools. No bright red bleeding seen per rectum. Patient has screening labs pending. EKG shows no acute ischemic changes. Type and screen pending. Provided 45 minutes of critical care service for this patient Time: 16:21 Reevaluation #2: Workup was completed, patient's hemoglobin came back 6.4 which is a drop from 9.7 on discharge. Patient will get 2 units PRBCs transfusion ordered. Discussed case with the hospitalist Dr. ANDUJAR, who accepted the patient for admission. Provided a total of 45 minutes of critical care services this patient Time: 17:07 Vital Signs Temperature 97.7 F 02/12/18 15:18 Pulse Rate 61 02/12/18 15:18 Respiratory Rate 15 02/12/18 15:18 Blood Pressure 99/62 02/12/18 15:18 O2 Sat by Pulse Oximetry 98 02/12/18 15:18 Temperature 97.7 F 02/12/18 15:18 Pulse Rate 66 02/12/18 16:36 Respiratory Rate 20 02/12/18 16:36 Blood Pressure 109/62 02/12/18 16:36 O2 Sat by Pulse Oximetry 97 02/12/18 16:36 Oxygen Delivery Oxygen Delivery Room Air Medical Decision Making - Medical Records Medical records reviewed: Yes I reviewed the patient's medical records. - Lab Data Lab results reviewed: Yes I reviewed the patient's lab results. Result diagrams: 02/12/18 15:59 02/12/18 15:59 Lab Results 03/19/18 03/19/18 03/19/18 Range/Units 15:59 15:59 15:59 WBC 5.2 (4.3-11.1) K/mcL RBC 2.44 L (3.82-4.97) M/mcL Hgb 6.7 L (11.5-15.4) g/dL Hct 21.5 L (35.3-44.9) % MCV 88.1 (83.0-100.0) fL MCH 27.5 L (28.0-33.3) pg MCHC 31.2 L (31.6-35.5) g/dL RDW 15.4 H (11.5-14.5) % Plt Count 265 (140-400) K/mcL MPV 9.5 (9.4-12.4) fL Immature Gran % 0.2 (0-4) % Seg Neutrophils % 56.7 % Lymphocytes % 23.2 % Monocytes % 8.1 % Eosinophils % 11.8 % Basophils % 0.0 % Neutrophils # 2.9 (1.6-8.9) K/mcL Lymphocytes # 1.2 (0.6-4.6) K/mcL Monocytes # 0.4 (0.0-1.3) K/mcL Eosinophils # 0.6 (0.0-0.6) K/mcL Basophils # 0.0 (0.0-0.2) K/mcL PT 44.0 H* (9.4-12.1) Seconds INR 4.0 Sodium 139 (136-145) mEq/L Potassium 3.9 (3.5-5.1) mEq/L Chloride 106 (98-107) mEq/L Carbon Dioxide 26 (23-29) mEq/L BUN 24 H (8-23) mg/dL Creatinine 0.63 (0.60-1.20) mg/dL Est GFR ( Amer) > 60 (> 60) Est GFR (Non-Af Amer) > 60 (> 60) BUN/Creatinine Ratio 38 H (6-26) Glucose 98 (70-105) mg/dL Calculated Osmolality 292 (280-300) Calcium 8.9 (8.6-10.3) mg/dL - Radiology Data Radiology results reviewed: Yes I reviewed the patient's radiology results. - EKG Data EKG #1 EKG attestation: Yes I reviewed and interpreted this EKG. EKG results narrative: Twelve-lead EKG interpreted without Cardiologic assistance reveals the following : Sinus rhythm at 65 bpm. Normal MT, QRS, QT corrected. Nonspecific ST-T changes. No acute ischemic changes noted. No acute changes when compared to a prior EKG dated 02/01/2018
[2018-02-12 16:33] LABS: BUN/Creatinine Ratio 38 (6-26); Blood Urea Nitrogen 24 mg/dL (8-23); Calcium 8.9 mg/dL (8.6-10.3); Carbon Dioxide 26 mEq/L (23-29); Chloride 106 mEq/L (98-107); Glucose 98 mg/dL (70-105); Osmolality,Calculated 292 (280-300); Potassium 3.9 mEq/L (3.5-5.1); Sodium 139 mEq/L (136-145); eGFR For African Americans > 60 (> 60); eGFR For Non-African Americans > 60 (> 60)
[2018-02-12 16:40] LABS: Hemoglobin 6.7 g/dL (11.5-15.4)
[2018-02-12] MEDS ORDERED: 0.9 % Sodium Chloride 250 ML ONE (17:26)
[2018-02-12] MEDS ORDERED: Naloxone 0.4 MG/ML INJ IVP PRN (20:14)
[2018-02-12] MEDS ORDERED: Ondansetron 4 MG/2 ML VIAL IVP PRN (20:28)
[2018-02-12] MEDS ORDERED: *HR* Dextrose 50 % in Water (Syg) 50 ML SYRINGE IVP PRN (20:29)
[2018-02-12] MEDS ORDERED: D5% in Water 1,000 ML IVC PRN (20:29)
[2018-02-12] MEDS ORDERED: Dextrose Gel 15 GM/37.5 ML TUBE PO PRN ×2 (20:29)
--- NOTE | 2018-02-12 20:42 | Internal Med History&Physical ---
<Yuniel Caro Yosi - Last Filed: 02/12/18 21:19> Date of Encounter: 02/12/18 Time of Encounter: 07:40 Assessment and Plan (1) GI bleed Current visit: Yes Status: Acute Black stool X 6 days. Heme + in ED. 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 Patient is symptomatic with lightheadedness and dyspnea. Hemoglobin 6.7, upon discharge it was 9.3. INR 4.0, PTT 44. Receiving 2 units RBCs now. Vitals are stable. No BRBPR or other signs of bleeding. History of an STEMI on 01/24/18 with 1 stent placement, on Brillinta and aspirin. History of paroxysmal A. fib, was restarted on 02/10/18. H&H Q6H, IV fluids, Protonix drip, NPO diet. Transfuse RBCs as needed. Consult GI. We will hold anticoagulation at this time, consult cardiology. Qualifiers: GI bleed type/associated pathology: unspecified gastrointestinal hemorrhage type Qualified Code(s): K92.2 - Gastrointestinal hemorrhage, unspecified (2) Blood loss anemia Current visit: Yes Status: Acute Secondary to GI bleed. Hemoglobin 6.7. H&H Q6H. Vitals stable. (3) Coronary artery disease Current visit: Yes Status: Chronic Instability 01/24/18 with one stent placed. Patient is currently on Brillinta and aspirin. History of UT with a total of 4 stents. Holding anticoagulation due to GI bleed. Consult cardiology for further recommendations. Qualifiers: Coronary Disease-Associated Artery/Lesion type: [place] artery [place] vs. transplanted heart: [place] heart Associated angina: without angina Qualified Code(s): I25.10 - Atherosclerotic heart disease of [place] coronary artery without angina pectoris (4) Paroxysmal atrial fibrillation Current visit: Yes Status: Acute Currently in normal sinus rhythm. Rate controlled Xarelto stopped at recent admission, but then restarted on 02/10/18. We will hold Xarelto. Continue metoprolol for rate control. (5) COPD (chronic obstructive pulmonary disease) Current visit: Yes Status: Chronic On home oxygen 2.5L and albuterol. Continue supportive treatment. Qualifiers: COPD type: unspecified COPD Qualified Code(s): J44.9 - Chronic obstructive pulmonary disease, unspecified (6) HTN (hypertension) Current visit: Yes Status: Chronic Normotensive. We will continue metoprolol, mainly for rate control in the setting of A. fib. Qualifiers: Hypertension type: essential hypertension Qualified Code(s): I10 - Essential (primary) hypertension (7) Type 2 diabetes mellitus Current visit: No Status: Chronic Hold metformin. Sliding scale insulin. Qualifiers: Diabetes mellitus exterminator termite insulin use: without exterminator termite use Diabetes mellitus complication status: with circulatory complication Diabetes mellitus complication detail: with peripheral angiopathy without gangrene Qualified Code(s): E11.51 - Type 2 diabetes mellitus with diabetic peripheral angiopathy without gangrene (8) History of pulmonary embolism Current visit: No Status: Chronic History of PE and bilateral DVT. Was anticoagulated with Xarelto, but holding now. (9) DVT prophylaxis Current visit: Yes Status: Acute SCDs Internal Medicine - H&P: HPI Chief complaint: Light-headedness, short of breath Admitted From: Emergency Dept History of present illness: Ms. Costa is a 67 year old female with PMH A. fib, COPD on home oxygen, CAD, DVT , hypertension, hyperlipidemia, peripheral arterial disease, and diabetes, presented the emergency department with lightheadedness, shortness of breath, and dark stool for the past 6 days. Associated symptoms include fatigue, generalized weakness, runny nose, cough, chills, and diffuse achy abdominal pain. She does report a fall 2 days ago but was caught by her son. She did not hit her head or have loss of consciousness. She reports that she was just discharged from the hospital on 02/05/18 for a GI bleed, and EGD showed no active bleed, colonoscopy at that time to check show an AVM bleed that was cauterized. She received 4 U RBC's at that time. She states that she has just progressively been feeling worse since discharge. Previously she was on Zaroxolyn was stopped last admission, and then restarted on 02/10/18, but when she saw her x ray physician today and instructed her to stop it again. She denies any loss of consciousness, fevers, chest pain, nausea, vomiting, hematemesis, hematochezia, dysuria, hematuria, epistaxis, bleeding gums, or focal neuro deficits. I discussed CODE STATUS with patient and she is a FULL code. Past Med Surg Social Fam HX - Past Medical History Medical history: arthritis, atrial fibrillation, COPD, coronary artery disease, DVT, hyperlipidemia, hypertension, myocardial infarction, peripheral artery disease Psychiatric history: anxiety, depression - Past Surgical History Surgical History: angioplasty/stent, cholecystectomy, hysterectomy, knee replacement, other, vascular surgery, LE bypass, LE vascular intervention - Social History Smoking Status: Current every day smoker Packs per day: 4-5 cigarettes a day since 02/05/18 Smokeless Tobacco Status: No Alcohol use: none Drug use: none - Family History Mother Adopted: No Living Status: Hx Family Cardiac Disorders: Yes Hx Family Respiratory Disorders: Yes Hx Family Cancer: No Hx Family GI Disorders: No Hx Family Endocrine Disorder: Yes Hx Family Neuromuscular Disorders: No Hx Family Neurologic Disorders: No Hx Family HEENT Disorders: No Hx Family Autoimmune Disorders: No Father Adopted: No Living Status: Hx Family Cardiac Disorders: Yes Hx Family Cancer: Yes (Prostate) Hx Family Endocrine Disorder: Yes (DM) Internal Medicine - H&P: Meds Albuterol Sulfate [Albuterol Inhaler] 2 puff IH Q4H PRN 10/22/16 [History] Furosemide [Lasix] 20 mg PO DAILY 10/22/16 [History] Gabapentin 600 mg PO TID 10/22/16 [History] Isosorbide DInitrate [Isosorbide Dinitrate] 30 mg PO BID 10/22/16 [History] Ranolazine [Ranexa] 500 mg PO BID 30 Days tab.er.12h 10/22/16 [Rx] Atorvastatin Calcium [Lipitor] 80 mg PO HS 02/16/17 [History] Metformin HCl [Glucophage] 1,000 mg PO BID 05/11/17 [History] Omeprazole [PriLOSEC] 40 mg PO BID #60 cap 08/18/17 [Rx] Dicyclomine [Bentyl] 20 mg PO QID 01/21/18 [History] Metoprolol Tartrate 50 mg PO BID 01/21/18 [History] Ondansetron [Zofran ODT] 8 mg SL Q8H PRN 01/21/18 [History] Venlafaxine HCl [Venlafaxine HCl ER] 75 mg PO DAILY 01/21/18 [History] clonazePAM [Klonopin] 1 mg PO TID PRN 01/21/18 [History] Aspirin 81 mg PO DAILY #30 tab.chew 01/25/18 [Rx] Ticagrelor [Brilinta] 90 mg PO BID #60 tablet 01/25/18 [Rx] Oxygen 2.5 l NS AD 02/01/18 [History] Albuterol Neb [Proventil Neb] 2.5 mg IH Q4HR PRN #100 vial.neb 02/05/18 [Rx] Oxycodone HCl/Acetaminophen [Percocet 10-325 mg Tablet] 1 each PO TID PRN 7 Days #20 tablet 02/05/18 [Rx] 3 Allergy/AdvReac Type Severity Reaction Status Date / Time No Known Allergies Allergy Verified 01/21/18 11:53 All Systems PM: A 10-system review of systems was performed and is negative for pertinent findings except as documented above in the HPI. - Constitutional Vitals: Temp Pulse Resp BP Pulse Ox 98.0 F 69 19 103/60 96 02/12/18 20:34 02/12/18 20:34 02/12/18 20:34 02/12/18 20:34 02/12/18 20:34 General appearance: Present: A&O X 3, no acute distress, answers questions appropriately - Head Head exam: Present: atraumatic, normocephalic - Eye Eye exam: Present: EOMI, PERRL, sclera anicteric. Absent: conjuntiva pink ( Pallor) Pupils: Present: PERRL - Neck Neck exam general surgery: Present: supple, trachea midline. Absent: lymphadenopathy - Respiratory Respiratory exam: Present: CTAB, wheezes (Bilaterally). Absent: accessory muscle use, rales, rhonchi - Cardiovascular Cardiovascular exam: Present: RRR, +S1, +S2. Absent: diastolic murmur, systolic murmur - GI/Abdominal GI/Abdominal exam: Present: normal bowel sounds, soft, tenderness (Diffuse, mild ), no peritoneal signs. Absent: distended, firm, guarding, rebound - Extremities Exam Extremities exam: Present: warm, radial pulses palpable and symmetrical. Absent : calf tenderness, cyanotic, pedal edema - Neurological Exam Neurological exam: Present: alert, oriented X3, no focal deficits. Absent: facial droop, speech deficit - Skin Skin exam: Present: dry, intact Internal Med - H&P Results - Labs CBC & Chem 7: 02/12/18 15:59 02/12/18 15:59 <Mee Sweet - Last Filed: 02/12/18 23:13> Date of Encounter: 02/12/18 Internal Medicine - H&P: HPI History of present illness: Ms. Costa is a 67 year old female All Systems PM: A 10-system review of systems was performed and is negative for pertinent findings except as documented above in the HPI. - Constitutional Vitals: Temp Pulse Resp BP Pulse Ox 98.0 F 78 18 115/76 96 02/12/18 22:15 02/12/18 22:15 02/12/18 22:15 02/12/18 22:15 02/12/18 20:34 Internal Med - H&P Results - Labs CBC & Chem 7: 02/12/18 22:01 02/12/18 15:59 Labs: Short CBC 02/12/18 Range/Units 22:01 Hgb 6.4 L (11.5-15.4) g/dL Hct 20.6 L (35.3-44.9) % - Attending Attestation I have seen and examined this patient independently. I have discussed with resident physician Dr. Caro regarding the management plan. Agree with the documentation.
[2018-02-12] MEDS ORDERED: Albuterol 2.5 MG/3 ML NEBULIZER IH PRN (21:08)
[2018-02-12 22:20] LABS: Hematocrit 20.6 % (35.3-44.9); Hemoglobin 6.4 g/dL (11.5-15.4)
[2018-02-12] MEDS: Insulin LISPRO 300 UNITS/3 ML VIAL SQ SCH (23:23)
[2018-02-12] MEDS: OXYCODONE Oral CONC 10 MG/0.5 ML ORAL.SYG SL PRN (23:36)
[2018-02-13] MEDS: 0.9 % Sodium Chloride 1,000 ML IVC SCH ×2 (01:20→17:36)
[2018-02-13] MEDS: Pantoprazole 40 MG in 0.9 % Sodium Chloride Mini Bag 100 ML IVC SCH ×3 (01:20→16:15)
[2018-02-13] MEDS: Insulin LISPRO 300 UNITS/3 ML VIAL SQ SCH ×5 (02:59→23:35)
[2018-02-13 05:09] LABS: Basophils % 0.2 %; Eosinophils # 0.6 K/mcL (0.0-0.6); Eosinophils % 10.3 %; Hematocrit 26.8 % (35.3-44.9); Immature Granulocytes % 0.4 % (0-4); Lymphocytes # 1.7 K/mcL (0.6-4.6); Lymphocytes % 29.9 %; Mean Corpuscular HGB Conc 31.3 g/dL (31.6-35.5); Mean Corpuscular Hemoglobin 27.5 pg (28.0-33.3); Mean Corpuscular Volume 87.6 fL (83.0-100.0); Mean Platelet Volume 9.1 fL (9.4-12.4); Monocytes # 0.5 K/mcL (0.0-1.3); Monocytes % 8.3 %; Neutrophils # 2.9 K/mcL (1.6-8.9); Platelet Count 214 K/mcL (140-400); Red Blood Count 3.06 M/mcL (3.82-4.97); Red Cell Distribution Width 15.1 % (11.5-14.5); Segmented Neutrophils % 50.9 %
[2018-02-13 05:17] LABS: Activated Partial Thrombo Time 29.9 Seconds (26.0-36.0)
[2018-02-13 05:20] LABS: Hemoglobin 8.4 g/dL (11.5-15.4)
[2018-02-13 05:27] LABS: BUN/Creatinine Ratio 41 (6-26); Blood Urea Nitrogen 24 mg/dL (8-23); Calcium 8.4 mg/dL (8.6-10.3); Carbon Dioxide 27 mEq/L (23-29); Chloride 108 mEq/L (98-107); Glucose 88 mg/dL (70-105); Osmolality,Calculated 291 (280-300); Potassium 3.7 mEq/L (3.5-5.1); Sodium 139 mEq/L (136-145); eGFR For African Americans > 60 (> 60); eGFR For Non-African Americans > 60 (> 60)
[2018-02-13 05:35] LABS: INR 1.4; Prothrombin Time 14.9 Seconds (9.4-12.1)
[2018-02-13] MEDS: Ranolazine 500 MG TAB.ER.12H PO SCH ×2 (08:49→20:13)
[2018-02-13] MEDS: clonazePAM 1 MG TABLET PO PRN ×3 (08:58→21:16)
--- NOTE | 2018-02-13 09:27 | Internal Med Progress Note ---
<Navin Sanchez - Last Filed: 02/13/18 09:24> Date of Encounter: 02/13/18 Time of Encounter: 09:25 - Assessment and plan (1) GI bleed Current Visit: Yes Status: Acute Assessment and plan: Presented with chief complaint of black stools 6 days. Hemoglobin on presentation 6.7. Received 2 units PBRC. Hemoglobin 8.4. Blood pressure stable. History of STEMI on 01/24/18 with 1 stent placement on brilinta and aspirin. History of paroxysmal A. fib and previous DVT/PE on xeralto. Previous GI bleed admission on 02/05/18: EGD showed no active bleeding, colonoscopy showed AVM which was cauterized. Plan: Continue IV fluids, continue Protonix drip, nothing by mouth, GI consulted likely have EGD today. Currently patient brilinta, aspirin, xeralto on hold will restart aspirin and brilinta. Qualifiers: GI bleed type/associated pathology: unspecified gastrointestinal hemorrhage type Qualified Code(s): K92.2 - Gastrointestinal hemorrhage, unspecified (2) Blood loss anemia Current Visit: Yes Status: Acute Assessment and plan: Secondary GI bleed. Plan as above. (3) Coronary artery disease Current Visit: Yes Status: Acute Assessment and plan: As stated above. Cardiology consultation and recommendations on continuing blood thinners. Qualifiers: Coronary Disease-Associated Artery/Lesion type: [place] artery [place] vs. transplanted heart: [place] heart Associated angina: without angina Qualified Code(s): I25.10 - Atherosclerotic heart disease of [place] coronary artery without angina pectoris (4) COPD (chronic obstructive pulmonary disease) Current Visit: Yes Status: Chronic Assessment and plan: Stable. Continue home supplemental oxygen. Nebulizer when necessary. 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 She was anticoagulated xeralto. (6) Paroxysmal atrial fibrillation Current Visit: Yes Status: Chronic Assessment and plan: Rate controlled with metoprolol which is on hold due to patient being hypotensive on presentation secondary to acute blood loss anemia. Xeralto on hold due to GI bleed. Cardiology consultation for recommendations on continuing anticoagulation. (7) HTN (hypertension) Current Visit: Yes Status: Chronic Assessment and plan: BP meds held for mild hypotension 2nd to acute blood loss anemia. Qualifiers: Hypertension type: essential hypertension Qualified Code(s): I10 - Essential (primary) hypertension (8) Type 2 diabetes mellitus Current Visit: Yes Status: Chronic Assessment and plan: Patient currently is nothing by mouth. Continue low-dose sliding scale. Q6H accuchecks Qualifiers: Diabetes mellitus ferry terminal agent insulin use: without ferry terminal agent use Diabetes mellitus complication status: with circulatory complication Diabetes mellitus complication detail: with peripheral angiopathy without gangrene Qualified Code(s): E11.51 - Type 2 diabetes mellitus with diabetic peripheral angiopathy without gangrene - Subjective Interval history: Patient denies any black bowel movements since admission. She denies headache, shortness of breath, chest pain, abdominal pain, nausea, vomiting. She denies lower extremity swelling, pain. - Constitutional Vitals: Temp Pulse Resp BP Pulse Ox 97.6 F 70 17 118/67 97 02/13/18 07:00 02/13/18 07:00 02/13/18 07:00 02/13/18 07:00 02/13/18 07:00 General appearance: Present: A&O X 3, no acute distress, answers questions appropriately - Other Additional findings: General: without distress Heart: Regular rate and rhythm with no murmur Lungs: Clear to auscultation bilaterally Abdomen: Soft nontender, nondistended positive bowel sounds Skin: warm and dry Extremities: Absent pedal edema, Neuro: Alert oriented 3 Vascular: Pedal and radial pulses 2 out of 4 Internal Medicine: Result - Labs CBC & Chem 7: 02/13/18 04:42 02/13/18 04:42 Labs: Short CBC 02/12/18 02/13/18 Range/Units 22:01 04:42 WBC 5.7 (4.3-11.1) K/mcL Hgb 6.4 L 8.4 L D (11.5-15.4) g/dL Hct 20.6 L 26.8 L (35.3-44.9) % Plt Count 214 (140-400) K/mcL Neutrophils # 2.9 (1.6-8.9) K/mcL BMP 02/13/18 04:42 Sodium 139 Potassium 3.7 Chloride 108 H Carbon Dioxide 27 BUN 24 H Creatinine 0.58 L Glucose 88 Calcium 8.4 L - ABG Interpretation ABG results: PT/INR, D-dimer PT 14.9 Seconds (9.4-12.1) H D 02/13/18 04:42 - VTE Documentation of Mechanical Device: Intermittent pneumatic compression device Consult Discharge Plan - Plan Referrals: NONE,PCP [Primary Care Provider] - <Nirav Hernandez - Last Filed: 02/13/18 18:16> Date of Encounter: 02/13/18 - Assessment and plan (1) Angiodysplasia of stomach and duodenum with hemorrhage Current Visit: No Status: Suspected (2) Anemia Current Visit: Yes Status: Acute Qualifiers: Other causes of anemia: acute posthemorrhagic Qualified Code(s): D62 - Acute posthemorrhagic anemia (3) Coronary artery disease Current Visit: Yes Status: Chronic Qualifiers: Coronary Disease-Associated Artery/Lesion type: [place] artery [place] vs. transplanted heart: [place] heart Associated angina: without angina Qualified Code(s): I25.10 - Atherosclerotic heart disease of [place] coronary artery without angina pectoris (4) S/P coronary artery stent placement Current Visit: Yes Status: Chronic (5) COPD (chronic obstructive pulmonary disease) Current Visit: Yes Status: Chronic Qualifiers: COPD type: unspecified COPD Qualified Code(s): J44.9 - Chronic obstructive pulmonary disease, unspecified (6) HTN (hypertension) Current Visit: Yes Status: Chronic Qualifiers: Hypertension type: essential hypertension Qualified Code(s): I10 - Essential (primary) hypertension (7) Paroxysmal atrial fibrillation Current Visit: Yes Status: Chronic (8) Type 2 diabetes mellitus Current Visit: Yes Status: Chronic Qualifiers: Diabetes mellitus ferry terminal agent insulin use: without ferry terminal agent use Diabetes mellitus complication status: with circulatory complication Diabetes mellitus complication detail: with peripheral angiopathy without gangrene Qualified Code(s): E11.51 - Type 2 diabetes mellitus with diabetic peripheral angiopathy without gangrene (9) Chronic diastolic (congestive) heart failure Current Visit: No Status: Chronic (10) Tobacco abuse Current Visit: No Status: Chronic (11) Chronic respiratory failure with hypoxia Current Visit: Yes Status: Chronic - Constitutional Vitals: Temp Pulse Resp BP Pulse Ox 98 F 62 20 106/69 98 02/13/18 15:52 02/13/18 15:52 02/13/18 15:52 02/13/18 15:52 02/13/18 15:52 Internal Medicine: Result - Labs CBC & Chem 7: 02/13/18 15:51 02/13/18 04:42 Labs: Short CBC 02/12/18 02/13/18 02/13/18 Range/Units 22:01 04:42 09:50 WBC 5.7 (4.3-11.1) K/mcL Hgb 6.4 L 8.4 L D 7.6 L (11.5-15.4) g/dL Hct 20.6 L 26.8 L 24.4 L (35.3-44.9) % Plt Count 214 (140-400) K/mcL Neutrophils # 2.9 (1.6-8.9) K/mcL 02/13/18 Range/Units 15:51 WBC (4.3-11.1) K/mcL Hgb 7.1 L (11.5-15.4) g/dL Hct 22.6 L (35.3-44.9) % Plt Count (140-400) K/mcL Neutrophils # (1.6-8.9) K/mcL BMP 02/13/18 04:42 Sodium 139 Potassium 3.7 Chloride 108 H Carbon Dioxide 27 BUN 24 H Creatinine 0.58 L Glucose 88 Calcium 8.4 L Liver Function 02/13/18 Range/Units 09:50 Total Bilirubin 0.4 (0.3-1.0) mg/dL Direct Bilirubin 0.1 (0.0-0.2) mg/dL AST 14 (13-39) Units/L ALT 9 (7-52) Units/L Alkaline Phosphatase 40 (34-104) Units/L Albumin 3.1 L (3.5-5.7) g/dL - ABG Interpretation ABG results: PT/INR, D-dimer PT 14.9 Seconds (9.4-12.1) H D 02/13/18 04:42 - Attending Attestation I examined this patient and my medical decision-making was reviewed with the Resident Physician on 02/13/18. I agree with the documented findings, disposition and treatment plan as described except to the extent set forth below. Ms Costa has been readmitted with recurrent GI bleed and anemia. She remains high risk due to potential for worsening clinical status and decompensation from bleeding. Ms Costa feels tired and weak. No fever or chills. No CP or SOB. Feels somewhat nauseous. Currently NPO for testing. Exam Alert Comfortable Mucus membranes dry Heart reg no wheeze Abd soft and nontender No edema I/P 1. Acute GI bleed 2. Anemia 3. CAD Further diagnoses and plan as above.
[2018-02-13] MEDS: *HR* Ticagrelor 90 MG TABLET PO SCH ×2 (10:03→20:13)
[2018-02-13] MEDS: Aspirin 81 MG TAB.CHEW PO SCH (10:03)
[2018-02-13 10:07] LABS: Hematocrit 24.4 % (35.3-44.9); Hemoglobin 7.6 g/dL (11.5-15.4)
[2018-02-13] MEDS: OXYCODONE Oral CONC 10 MG/0.5 ML ORAL.SYG SL PRN ×3 (10:07→21:15)
--- NOTE | 2018-02-13 10:25 | Gastroenterology Consult Note ---
<Jo Wong Hayden - Last Filed: 02/13/18 11:28> Date of Encounter: 02/13/18 Time of Encounter: 10:23 - Assessment and plan (1) GI bleed Status: Acute Assessment and plan: 67 yo female known to service here for GI bleeding, currently on dual anti- platelet therapy and xarelto s/p stent placement for STEMI in december 2017 and recent hospitalization for GI bleed this month. -Colonoscopy 02/03/2018- 4 polyps in transverse and ascending colon to be resected once patient off of dual antiplatelet therapy. Non-bleeding hemorrhoids. -EGD 02/02/2018- grade A esophagitis, gastritis, and AVM treated with cautery. -INR 1.4 (down from 4.0) -Xarelto held, ASA and brillianta being continued per primary team. -Patient s/p 2 units RBC overnight, Hgb 8.4 today (6.7 on arrival yesterday). -Push enteroscopy this afternoon. Qualifiers: GI bleed type/associated pathology: unspecified gastrointestinal hemorrhage type Qualified Code(s): K92.2 - Gastrointestinal hemorrhage, unspecified (2) Blood loss anemia Status: Acute Assessment and plan: s/p 2 units blood. -HgB 8.4 this morning. -continue to monitor -transfuse per primary team. (3) S/P coronary artery stent placement Status: Acute Assessment and plan: stent December 2017 -on ASA and brillinta. -agree with continuing dual antiplatelet. -Will proceed with push enterscopy today. - Time Spent With Patient Total time spent is greater than 50% in coordination of care (as documented) at patient's floor/unit and/or counseling patient: GI History of Present Illness - Data of Consult Patient: known to practice within the last 3 years Consult date: 02/13/18 Requesting Physician: Nirav Hernandez DO - Consult Narrative Reason for consult: GI bleed, on anticoagulation, recent admission for GI bleed. History of present illness: Ms. Costa is a 67 year old female with past medical history of atrial fibrillation, COPD, CAD, DVT, PE, HTN, HLD, PAD, DM 2, an ME with stent placement in December 2017 currently on dual antiplatelet therapy, and recent hospitalization in January 2018 for GI bleed. She presented to [facility] on 02/12/2018 with complaints of fatigue, lightheadedness, shortness of breath, and melena. She reported a 6 day history of melena. She endorses fatigue, generalized weakness, and diffuse mild abdominal pain. She reports a fall 2 days prior but was caught by her son. She denies hitting her head or having any loss of consciousness. Patient states she was just discharged from [facility] on 02/05/2018 for a GI bleed. She underwent endoscopy at that time. EGD on 02/02/2018 demonstrated grade I esophagitis, gastritis, and an AVM treated with cautery. There were 4 polyps in her transverse and ascending colon as well as nonbleeding internal hemorrhoids. Patient received 4 units of red blood cells during that admission. Of note, patient is currently on xarelto for anticoagulation for atrial fibrillation, as well as aspirin and brillinta for recent LHC and stent placement. Patient is currently denying any chest pain, palpitations, headaches , dizziness, hematemesis, hematochezia, dysuria, hematuria, fever, chills, or night sweats. This morning, patient is resting comfortably. She states her last bowel movement this was this morning. She describes it as fully formed and black. She received 2 units of PRBCs overnight. Colonoscopy: 02/03/2018 EGD: 02/02/2018 Past Med Surg Social Fam HX - Past Medical History Attestation: Yes The following information was validated with the patient. Source: patient, old records reviewed Medical history: arthritis, atrial fibrillation, COPD, coronary artery disease, DVT, hyperlipidemia, hypertension, myocardial infarction, peripheral artery disease Psychiatric history: anxiety, depression - Past Surgical History Surgical History: angioplasty/stent, cholecystectomy, hysterectomy, knee replacement, other, vascular surgery, LE bypass, LE vascular intervention - Social History Smoking Status: Current every day smoker Packs per day: 4-5 cigarettes a day since 02/05/18 Smokeless Tobacco Status: No Alcohol use: none Drug use: none - Family History Mother Adopted: No Living Status: Hx Family Cardiac Disorders: Yes Hx Family Respiratory Disorders: Yes Hx Family Cancer: No Hx Family GI Disorders: No Hx Family Endocrine Disorder: Yes Hx Family Neuromuscular Disorders: No Hx Family Neurologic Disorders: No Hx Family HEENT Disorders: No Hx Family Autoimmune Disorders: No Father Adopted: No Living Status: Hx Family Cardiac Disorders: Yes Hx Family Cancer: Yes (Prostate) Hx Family Endocrine Disorder: Yes (DM) All systems PM: reviewed and no additional remarkable complaints except as stated - Gastrointestinal Gastrointestinal: Present: abdominal pain (Mild diffuse), melena. Absent: change in bowel habits, coffee ground emesis, constipation, diarrhea, hematochezia, nausea, vomiting - Constitutional Constitutional: fatigue, no fever(s), no weight gain, no weight loss - EENT Eyes: as per HPI - Cardiovascular Cardiovascular ROS: Absent: chest pain, irregular heart rhythm, palpitations - Respiratory Respiratory IM: Present: cough, dyspnea - Genitourinary Genitourinary: Absent: change in color - Neurological ROS Neurological GI: Present: weakness. Absent: confusion, dizziness, frequent falls (1 fall a few days ago.), headache(s), tremor(s) - Hematologic/Lymphatic Hematologic/Lymphatic pediatric: Present: easy bleeding - Integumentary Integumentary GI: Absent: jaundice, rash - Constitutional Vitals: Temp Pulse Resp BP Pulse Ox 97.6 F 70 17 118/67 97 02/13/18 07:00 02/13/18 07:00 02/13/18 07:00 02/13/18 07:00 02/13/18 07:00 General appearance: Present: cooperative, A&O X 3, pleasant, no acute distress - Head Head exam: Present: atraumatic - Eye Eye exam: Present: EOMI, sclera anicteric - Neck Neck exam general surgery: Present: full ROM, supple - Respiratory Respiratory exam: Present: prolonged expiratory phase, rhonchi, wheezes - Cardiovascular Cardiovascular exam: Present: RRR, +S1, +S2 - GI/Abdominal GI/Abdominal exam: Present: normal bowel sounds, soft, tenderness (mild diffuse tenderness). Absent: distended, firm, guarding, hepatomegaly, pulsatile mass, rebound, no peritoneal signs - Expanded GI/Abdominal Exam GI/Abdominal exam expanded: Absent: ascites, heel tap sign, Sorensen's sign, Rovsing's sign, tenderness at McBurney's Point - Extremities Exam Extremities exam: Absent: pedal edema - Neurological Exam Neurological exam: Present: alert, CN II-XII intact, oriented X3 - Skin Skin exam: Present: pallor. Absent: rash Results - Labs CBC & Chem 7: 02/13/18 09:50 02/13/18 04:42 Labs: Last Result Calcium 8.4 mg/dL (8.6-10.3) L 02/13/18 04:42 Entire Visit Hgb 7.6 g/dL (11.5-15.4) L 02/13/18 09:50 Hct 24.4 % (35.3-44.9) L 02/13/18 09:50 PT 14.9 Seconds (9.4-12.1) H D 02/13/18 04:42 - ABG ABG results: PT/INR, D-dimer PT 14.9 Seconds (9.4-12.1) H D 02/13/18 04:42 Consult Discharge Plan - Plan Instructions: Anemia (GEN) Referrals: Julia Ny CNP [Advanced Practice Nurse] - 02/22/18 1:00 pm (Please show up for appointment or call 24 hrs prior to appointment to cancel of reschedule or patient will be cancelled as a patient and will have to obtain own family physician.) Patricio Torrez MD [Partnered Physician] - 03/13/18 2:40 pm Prescriptions: Albuterol Neb [Proventil Neb] 2.5 mg IH Q4HR PRN #100 vial.neb PRN Reason: Dyspnea Albuterol Sulfate [Albuterol Inhaler] 2 puff IH Q4H PRN #1 inhaler PRN Reason: Shortness Of Breath Aspirin 81 mg PO DAILY #30 tab.chew Atorvastatin Calcium [Lipitor] 80 mg PO HS #30 tablet clonazePAM [Klonopin] 1 mg PO TID PRN 5 Days #15 tablet PRN Reason: Anxiety Dicyclomine [Bentyl] 20 mg PO QID #120 capsule Furosemide [Lasix] 20 mg PO DAILY #30 tablet Gabapentin [Neurontin] 600 mg PO TID #90 capsule Isosorbide DInitrate [Isosorbide Dinitrate] 30 mg PO BID #60 tablet Metformin HCl [Glucophage] 1,000 mg PO BID #60 tablet Omeprazole [PriLOSEC] 40 mg PO BID #60 cap Ranolazine [Ranexa] 500 mg PO BID 30 Days #60 tab.er.12h Ticagrelor [Brilinta] 90 mg PO BID #60 tablet Venlafaxine HCl [Venlafaxine HCl ER] 75 mg PO DAILY #30 cap.er.24h <Dagoberto Ferguson - Last Filed: 02/22/18 12:53> Date of Encounter: 02/13/18 - Time Spent With Patient Total time spent is greater than 50% in coordination of care (as documented) at patient's floor/unit and/or counseling patient: GI History of Present Illness - Data of Consult Requesting Physician: Nirav Hernandez DO - Consult Narrative History of present illness: Ms. Costa is a 67 year old female - Constitutional Vitals: Temp Pulse Resp BP Pulse Ox 98.1 F 57 16 116/57 98 02/15/18 07:23 02/15/18 07:23 02/15/18 07:23 02/15/18 07:23 02/15/18 07:23 Results - Labs CBC & Chem 7: 02/14/18 15:55 02/13/18 04:42 Labs: Last Result Calcium 8.4 mg/dL (8.6-10.3) L 02/13/18 04:42 Entire Visit Hgb 9.4 g/dL (11.5-15.4) L 02/14/18 15:55 Hct 29.5 % (35.3-44.9) L 02/14/18 15:55 PT 14.9 Seconds (9.4-12.1) H D 02/13/18 04:42 Total Bilirubin 0.4 mg/dL (0.3-1.0) 02/13/18 09:50 AST 14 Units/L (13-39) 02/13/18 09:50 ALT 9 Units/L (7-52) 02/13/18 09:50 - ABG ABG results: PT/INR, D-dimer PT 14.9 Seconds (9.4-12.1) H D 02/13/18 04:42 - Attending Attestation Patient admitted with third episode of Gi bleeding. Has had EGD, push enteroscopy and colonoscopy. Had an antral AVM which did not look like it had recently bled but, was ablated early January. Needs capsule endoscopy. Will make arrangements. I examined this patient and my medical decision-making was reviewed with the Resident Physician. I agree with the documented findings, disposition and treatment plan as described except to the extent set forth below.
--- NOTE | 2018-02-13 11:47 | Cardiology Consult Note ---
Date of Encounter: 02/13/18 Time of Encounter: 11:46 Assessment and Plan (1) GI bleed Current Visit: Yes Status: Acute Melena x 6 days. On triple therapy--ASA, Brilinta, Xarelto. 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 Hemoglobin 6.7 on presentation. INR 4.0 on admission, now 1.4. History of an STEMI on 01/24/18 with GO mLCx, on Brillinta and aspirin. Recommend stopping xarelto given recurrent GI Bleed. Pt aware of increased CVA risk. Recommend continuing ASA and Brilinta given recent PCI. High risk of stent thrombosis if stopped. GI following, plan for push enteroscopy later today. Discussed with Dr. Babcock. He recommends stopping Xarelto for 1 month, continuing ASA and Brilinta. In one month if stable, can consider stopped ASA and resuming Xarelto. Anticipate sign off once seen and evaluated by Dr. Babcock. Qualifiers: GI bleed type/associated pathology: unspecified gastrointestinal hemorrhage type Qualified Code(s): K92.2 - Gastrointestinal hemorrhage, unspecified (2) Coronary artery disease Current Visit: Yes Status: Chronic Recent NSTEMI s/p PCI/GO to mLCx 01/24/18. Continue ASA and Brilinta. High risk for stent thrombosis/HI if DAPT held. Qualifiers: Coronary Disease-Associated Artery/Lesion type: [place] artery [place] vs. transplanted heart: [place] heart Associated angina: without angina Qualified Code(s): I25.10 - Atherosclerotic heart disease of [place] coronary artery without angina pectoris (3) Paroxysmal atrial fibrillation Current Visit: Yes Status: Chronic Currently SR. Stop Xarelto given GI bleed. Aware of increased CVA risk. If H&H stable in 1 month, consider stopping ASA and resuming Xarelto. (4) Elevated INR Current Visit: No Status: Acute INR 4.0 on admission, 1.4 today. Stop Xarelto. Discussion w patient/family: The assessment and plan as outlined above was discussed with the patient and/or family members who expressed understanding and agreement. All questions were answered. Thank you for involving us in the care of your patient. Please call with any questions. I will discuss all the above with Dr. Babcock and make changes as necessary. History of Present Illness Consult date: 02/13/18 Requesting physician: Mee Sweet Consult reason: GI bleed, recent PCI Chief complaint: melena History of present illness: Ms. Costa is a 67 year old female with PMHx significant for CAD s/p recent PCI, severe PVD s/p multiple LE interventions, tobacco use, COPD oxygen dependent, afib (xarelto), HTN, and HLD who presented to the ED with complaints of melena x 6 days. 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 Patient is symptomatic with lightheadedness and dyspnea. Hemoglobin 6.7, upon discharge it was 9.3. INR 4.0, now 1.4. Received 2 units RBCs. Hx of STEMI on 01/24/18 with GO to mLCx, on Brillinta and aspirin. Per pt, Xarelto was resumed 02/10/18 per instruction of hospitalist on recent d/c. Cardiology consulted for further recommendations on antiplatelet agents and anticoagulation. Pt denies chest pain. Prior CV testing: TTE 01/22/18: LVEF 50%, mild cLVH, mild segmental LV systolic dysfunction, no significant valvular dysfunction C 01/24/18: severe 2vCAD, fair quality collateral vessel/vessles from distal LCx to right PDA that are visualized; patent Om1 stent and mLAD stent; successful PTCA/GO in the mLCx. TTE 07/2017: LVEF 60%, basal inferior wall was akinetic, mild cLVH, no significant valvular dysfunction Regadenoson nuclear 08/16/15: perfusion imaging was negative for ischemia or infarct, rare PVCs/PACs, gated EF=69%, no TID, LV is visually dilated, LVEDV= 144 mL. Past Med Surg Social Fam HX - Past Medical History Medical history: arthritis, atrial fibrillation, COPD, coronary artery disease, DVT, hyperlipidemia, hypertension, myocardial infarction, peripheral artery disease Psychiatric history: anxiety, depression - Past Surgical History Surgical History: angioplasty/stent, cholecystectomy, hysterectomy, knee replacement, other, vascular surgery, LE bypass, LE vascular intervention - Social History Smoking Status: Current every day smoker Packs per day: 4-5 cigarettes a day since 02/05/18 Smokeless Tobacco Status: No Alcohol use: none Drug use: none - Family History Mother Adopted: No Living Status: Hx Family Cardiac Disorders: Yes Hx Family Respiratory Disorders: Yes Hx Family Cancer: No Hx Family GI Disorders: No Hx Family Endocrine Disorder: Yes Hx Family Neuromuscular Disorders: No Hx Family Neurologic Disorders: No Hx Family HEENT Disorders: No Hx Family Autoimmune Disorders: No Father Adopted: No Living Status: Hx Family Cardiac Disorders: Yes Hx Family Cancer: Yes (Prostate) Hx Family Endocrine Disorder: Yes (DM) Medications and Allergies Albuterol Sulfate [Albuterol Inhaler] 2 puff IH Q4H PRN 10/22/16 [History] Furosemide [Lasix] 20 mg PO DAILY 10/22/16 [History] Gabapentin 600 mg PO TID 10/22/16 [History] Isosorbide DInitrate [Isosorbide Dinitrate] 30 mg PO BID 10/22/16 [History] Ranolazine [Ranexa] 500 mg PO BID 30 Days tab.er.12h 10/22/16 [Rx] Atorvastatin Calcium [Lipitor] 80 mg PO HS 02/16/17 [History] Metformin HCl [Glucophage] 1,000 mg PO BID 05/11/17 [History] Omeprazole [PriLOSEC] 40 mg PO BID #60 cap 08/18/17 [Rx] Dicyclomine [Bentyl] 20 mg PO QID 01/21/18 [History] Metoprolol Tartrate 50 mg PO BID 01/21/18 [History] Ondansetron [Zofran ODT] 8 mg SL Q8H PRN 01/21/18 [History] Venlafaxine HCl [Venlafaxine HCl ER] 75 mg PO DAILY 01/21/18 [History] clonazePAM [Klonopin] 1 mg PO TID PRN 01/21/18 [History] Aspirin 81 mg PO DAILY #30 tab.chew 01/25/18 [Rx] Ticagrelor [Brilinta] 90 mg PO BID #60 tablet 01/25/18 [Rx] Oxygen 2.5 l NS AD 02/01/18 [History] Albuterol Neb [Proventil Neb] 2.5 mg IH Q4HR PRN #100 vial.neb 02/05/18 [Rx] Oxycodone HCl/Acetaminophen [Percocet 10-325 mg Tablet] 1 each PO TID PRN 7 Days #20 tablet 02/05/18 [Rx] 3 Allergy/AdvReac Type Severity Reaction Status Date / Time No Known Allergies Allergy Verified 01/21/18 11:53 All Systems Review: The remainder of the systems were reviewed and are negative - Constitutional Constitutional: weakness - Cardiovascular Cardiovascular: as per HPI, dyspnea at rest, dyspnea on exertion, lightheadedness - Respiratory Respiratory: dyspnea - Gastrointestinal Gastrointestinal: melena Physical Examination Vital Signs Temp Pulse Resp BP Pulse Ox 02/13/18 11:47 98.1 F 68 17 99/58 97 02/13/18 07:00 97.6 F 70 17 118/67 97 02/13/18 04:42 98.2 F 77 16 98/74 96 02/13/18 00:10 98.0 F 69 122/73 02/13/18 00:02 97.9 F 66 17 124/65 95 02/12/18 22:15 98.0 F 78 18 115/76 02/12/18 22:02 97.9 F 82 16 127/59 02/12/18 20:45 98.0 F 16 103/60 02/12/18 20:34 98.0 F 69 19 103/60 96 02/12/18 19:34 96 02/12/18 19:00 97.8 F 68 19 112/68 92 02/12/18 18:08 98.2 F 89 20 83/73 02/12/18 17:53 97.6 F 73 20 127/68 02/12/18 17:44 73 20 127/68 93 02/12/18 16:36 66 20 109/62 97 02/12/18 16:25 98 02/12/18 16:00 65 20 103/66 97 02/12/18 15:18 97.7 F 61 15 99/62 98 Intake and Output 02/12/18 02/13/18 02/13/18 23:59 07:59 15:59 Intake Total 1250 / 1250 600 / 600 Output Total 250 / 250 800 / 800 200 / 200 Balance 1000 / 1000 -200 / -200 -200 / -200 Intake: IV Fluids 1000 / 1000 350 / 350 0.9 % Sodium Chloride 1,000 ML 1000 / 1000 @ 3750 mls/hr IVC .Q16M [facility] Rx# :[id number] Protonix 40 MG In 0.9 % Sodium 100 / 100 Chloride (Mini-Bag +) 100 ML @ 20 mls/hr IVC .Q5H [facility] Rx#: [id number] Blood Product 250 / 250 250 / 250 Rbcs Leuko Poor As-1 Unit 0 / 0 250 / 250 [id number] Rbcs Leuko Poor As-1 Unit 250 / 250 [id number] Output: Urine 250 / 250 800 / 800 200 / 200 Other: Stool Size Large Stool Consistency formed Stool Characteristics Normal for Patient Stool Color Black Weight 58.1 kg Blood Glucose* 189 93 123 General: Conversant, No Apparent Distress HEENT: Atraumatic, Normocephaly, Mucus Membranes Moist Neck: No JVD, Normal carotid pulses Cardiac: Reg Rate and Rhythm, Normal S1 and S2, No Murmur Lungs: Other (diminished) Neuro: Alert and responsive, No focal deficits noted Abdomen: Soft, Non-Tender Skin: No rashes noted on visualized skin Musculoskeletal: No Chest Wall Tenderness Extremities: No Clubbing, No Cyanosis, No Edema, Normal Pulses Results 02/13/18 09:50 02/13/18 04:42 Lab Results 02/12/18 02/13/18 02/13/18 22:01 04:42 04:42 WBC 5.7 Hgb 6.4 L 8.4 L D Hct 20.6 L 26.8 L Plt Count 214 INR 1.4 D APTT 29.9 Sodium Potassium Chloride Carbon Dioxide BUN Creatinine Glucose Calcium 02/13/18 02/13/18 04:42 09:50 WBC Hgb 7.6 L Hct 24.4 L Plt Count INR APTT Sodium 139 Potassium 3.7 Chloride 108 H Carbon Dioxide 27 BUN 24 H Creatinine 0.58 L Glucose 88 Calcium 8.4 L Short CBC 02/13/18 02/13/18 02/12/18 Range/Units 09:50 04:42 22:01 WBC 5.7 (4.3-11.1) K/mcL Hgb 7.6 L 8.4 L D 6.4 L (11.5-15.4) g/dL Hct 24.4 L 26.8 L 20.6 L (35.3-44.9) % Plt Count 214 (140-400) K/mcL Neutrophils # 2.9 (1.6-8.9) K/mcL 02/12/18 Range/Units 15:59 WBC 5.2 (4.3-11.1) K/mcL Hgb 6.7 L (11.5-15.4) g/dL Hct 21.5 L (35.3-44.9) % Plt Count 265 (140-400) K/mcL Neutrophils # 2.9 (1.6-8.9) K/mcL BMP 02/13/18 02/12/18 Range/Units 04:42 15:59 Sodium 139 139 (136-145) mEq/L Potassium 3.7 3.9 (3.5-5.1) mEq/L Chloride 108 H 106 (98-107) mEq/L Carbon Dioxide 27 26 (23-29) mEq/L BUN 24 H 24 H (8-23) mg/dL Creatinine 0.58 L 0.63 (0.60-1.20) mg/dL Glucose 88 98 (70-105) mg/dL Calcium 8.4 L 8.9 (8.6-10.3) mg/dL Impressions Chest X-Ray 02/12/18 15:31 IMPRESSION: No acute process. D/ / Mynor Pollack MD / Mynor Pollack MD Interpreting Provider: Mynor Pollack MD Active Medications Albuterol Sulfate (Proventil Neb) 2.5 mg IH [id number] PRN; Protocol PRN Reason: Shortness Of Breath/Wheezing Stop: 08/14/18 21:09 Aspirin (Aspirin) 81 mg PO DAILY [facility]RE Stop: 08/15/18 09:46 Last Admin: 02/13/18 10:03 Dose: 81 mg Atorvastatin Calcium (Lipitor) 80 mg PO HS [facility] Stop: 08/15/18 21:01 Clonazepam (Klonopin) 1 mg PO TID PRN PRN Reason: Anxiety Stop: 08/14/18 21:18 Last Admin: 02/13/18 08:58 Dose: 1 mg Dextrose/Water (Dextrose 50% (Syg)) 25 ml IVP AD PRN PRN Reason: Hypoglycemia Stop: 08/14/18 20:30 Glucagon (Glucagen) 1 mg IM ONCE PRN PRN Reason: Hypoglycemia Stop: 08/14/18 20:30 Glucose (Gluctose) 15 gm PO ONCE PRN PRN Reason: Hypoglycemia Stop: 08/14/18 20:30 Glucose (Gluctose) 30 gm PO ONCE PRN PRN Reason: Hypoglycemia Stop: 08/14/18 20:30 Sodium Chloride (0.9 % Sodium Chloride) 1,000 mls @ 75 mls/hr IVC .[id number] [facility] Stop: 02/13/18 22:54 Last Admin: 02/13/18 01:20 Dose: 75 mls/hr Pantoprazole Sodium 40 mg/ (Sodium Chloride) 100 mls @ 20 mls/hr IVC .Q5H [facility] Stop: 08/14/18 20:31 Last Admin: 02/13/18 06:10 Dose: 20 mls/hr Dextrose (Dextrose 5%) 1,000 mls @ 100 mls/hr IVC .Q10H PRN PRN Reason: HYPOGLYCEMIA Stop: 08/14/18 20:30 Insulin Human Lispro (Humalog) 0 units SQ Q6HR [facility] PRN Reason: Protocol Stop: 08/15/18 00:01 Last Admin: 02/13/18 06:30 Dose: Not Given Insulin Human Lispro (Humalog) 0 units SQ HS [facility] PRN Reason: Protocol Stop: 08/14/18 21:01 Last Admin: 02/12/18 23:23 Dose: Not Given Isosorbide Dinitrate (Isordil) 30 mg PO BID [facility] Stop: 08/15/18 09:01 Last Admin: 02/13/18 08:49 Dose: 30 mg Metoprolol Tartrate (Lopressor) 25 mg PO BID [facility] Stop: 08/14/18 21:01 Last Admin: 02/13/18 08:49 Dose: 25 mg Naloxone HCl (Narcan) 0.4 mg IVP Q2MIN PRN PRN Reason: SEE COMMENTS Stop: 08/14/18 20:15 Ondansetron HCl (Zofran) 4 mg IVP Q6HR PRN; Protocol PRN Reason: Nausea And Vomiting Stop: 08/14/18 20:29 Last Admin: 02/13/18 11:48 Dose: 4 mg Oxycodone HCl (Oxycodone Oral Conc) 5 mg SL Q4H PRN; Protocol PRN Reason: mild to moderate pain Stop: 08/14/18 20:28 Oxycodone HCl (Oxycodone Oral Conc) 10 mg SL Q4H PRN; Protocol PRN Reason: Severe Pain Stop: 08/14/18 20:28 Last Admin: 02/13/18 10:07 Dose: 10 mg Ranolazine (Ranexa) 500 mg PO BID [facility] Stop: 08/15/18 09:01 Last Admin: 02/13/18 08:49 Dose: 500 mg Ticagrelor (Brilinta) 90 mg PO BID [facility] Stop: 08/15/18 10:01 Last Admin: 02/13/18 10:03 Dose: 90 mg Venlafaxine HCl (Effexor Xr) 75 mg PO DAILY [facility] Stop: 08/16/18 09:01 - Imaging and Cardiology Echo: report reviewed Cardiac cath: report reviewed - EKG Interpretation EKG results cardiology: personally reviewed (SR, prior inferior HI), other (12 hr tele AVG HR 64, SR) Consult Discharge Plan - Plan Referrals: NONE,PCP [Primary Care Provider] -
[2018-02-13] MEDS ORDERED: Lidocaine -MPF 2% 2 ML VIAL ONE (12:03)
[2018-02-13] MEDS ORDERED: Propofol 500 MG/50 ML INFUS..BTL ONE (12:26)
[2018-02-13 12:28] LABS: Albumin 3.1 g/dL (3.5-5.7); Albumin/Globulin Ratio 1.3 (1.1-2.2); Bilirubin,Direct 0.1 mg/dL (0.0-0.2); Bilirubin,Indirect 0.3 mg/dL (0.0-1.2); Bilirubin,Total 0.4 mg/dL (0.3-1.0); Globulin 2.3 g/dL (2.4-3.5); Total Protein 5.4 g/dL (6.4-8.9)
--- NOTE | 2018-02-13 12:49 | Anesthesia Evaluation PreOp ---
Date of Encounter: 02/13/18 Time of Encounter: 12:47 - Past History Planned Operation: Push Enteroscopy Cardiac History: Denies any Significant Hx, [place] (multiple; most recently NSTEMI ), HTN, Hyperlipidemia, Cardiac Stent (4 stents total; recent stent ; patient is high risk for stent re-occlusion with the cessation of dual-anti- platelet therapy) Pulmonary History: Smoker, COPD (uses 2L oxygen at home routinely; is on 3L nasal canula currently) CLINICAL APPLICATION MANAGER History: Other (Bleeding (patient has melena; patient was transfused with 4U PRBC's and 1U plasma for hgb 4.5 on admission)) Other Medical History: Diabetes Type II, Other (GI Bleed Transfused with 2 Units PRBC yesterday, last unit @ 22:02) Anesthesia History: No Prior Anesthetic Complications, Past Anesthesia ( colonoscopy) : No Alcohol Use: none Drug use: none Medications and Allergies Albuterol Sulfate [Albuterol Inhaler] 2 puff IH Q4H PRN 10/22/16 [History] Furosemide [Lasix] 20 mg PO DAILY 10/22/16 [History] Gabapentin 600 mg PO TID 10/22/16 [History] Isosorbide DInitrate [Isosorbide Dinitrate] 30 mg PO BID 10/22/16 [History] Ranolazine [Ranexa] 500 mg PO BID 30 Days tab.er.12h 10/22/16 [Rx] Atorvastatin Calcium [Lipitor] 80 mg PO HS 02/16/17 [History] Metformin HCl [Glucophage] 1,000 mg PO BID 05/11/17 [History] Omeprazole [PriLOSEC] 40 mg PO BID #60 cap 08/18/17 [Rx] Dicyclomine [Bentyl] 20 mg PO QID 01/21/18 [History] Metoprolol Tartrate 50 mg PO BID 01/21/18 [History] Ondansetron [Zofran ODT] 8 mg SL Q8H PRN 01/21/18 [History] Venlafaxine HCl [Venlafaxine HCl ER] 75 mg PO DAILY 01/21/18 [History] clonazePAM [Klonopin] 1 mg PO TID PRN 01/21/18 [History] Aspirin 81 mg PO DAILY #30 tab.chew 01/25/18 [Rx] Ticagrelor [Brilinta] 90 mg PO BID #60 tablet 01/25/18 [Rx] Oxygen 2.5 l NS AD 02/01/18 [History] Albuterol Neb [Proventil Neb] 2.5 mg IH Q4HR PRN #100 vial.neb 02/05/18 [Rx] Oxycodone HCl/Acetaminophen [Percocet 10-325 mg Tablet] 1 each PO TID PRN 7 Days #20 tablet 02/05/18 [Rx] 3 Allergy/AdvReac Type Severity Reaction Status Date / Time No Known Allergies Allergy Verified 01/21/18 11:53 - Meds/Allergy Pre-op Review Medications Reviewed: Yes Allergies Reviewed: Yes Beta Blockers on Current Med List: Yes If Beta Blockers taken, Date/Time (Last Dose taken): 08:49 02/13/2018 Anesthesia Results - Labs 02/13/18 09:50 02/13/18 04:42 LEFT HEART CATH Stent w/ PTCA Single Major Vessel Add'l complete exam Indications: Non-Stemi Impressions: There is severe two vessel coronary artery disease. The left ventricle is normal and has normal contractility EF 60% There is fair quality collateral vessel/vessels from the Distal Circumflex to the Right PDA that are visualized. Stent placed from a prior procedure in the 1st Marginal is is patent.Stent placed from a prior procedure in the Mid LAD is is patent.Patient had successful PTCA/Drug-Eluting Stent placement in the mid Circ. Rt Iliac Artery angiogram performed. 100% Rt External iliac and 100% Rt SFA occlusion seen. Recommendations: Optimal medical therapy of patient's disease. - Imaging EKG: report reviewed (SINUS RHYTHM MODERATE INTRAVENTRICULAR CONDUCTION DELAY ST DEVIATION AND MODERATE T-WAVE ABNORMALITY, CONSIDER ANTERIOR ISCHEMIA) Anesthesia Exam Vital Signs/O2 Sat, Most Current Temp Pulse Resp BP Pulse Ox 97.6 F 70 16 101/71 97 02/13/18 12:40 02/13/18 12:40 02/13/18 12:40 02/13/18 12:40 02/13/18 12:40 NPO (# of Hours): > 8 hrs Pain Scale: 0 Pain Scale Used: Numeric (1 - 10) - HEENT Pupil (Motor): Pupils equal, EOMI Mallampati: II Teeth: Missing, Poor dentition Oral Opening: Greater than 3 - CLINICAL APPLICATION MANAGER LOC: Oriented CLINICAL APPLICATION MANAGER Motor: Normal RUE, Normal LUE, Normal RLE, Normal LLE, Normal Face CLINICAL APPLICATION MANAGER Sensory: Normal: RUE, LUE, RLE, LLE, Face - Cardiac Rhythm: Regular Murmur: None JVD: No Carotid Bruit: No - Pulmonary Breath Sounds: bilateral Clear Respiratory Effort: Symmetrical Anesthesia Assess/Plan ASA Score: 4 Modified Tay Scale for Level of Consciousness: Cooperative, oriented, and tranquil Anesthetic Plan: MAC Autologous Blood: Yes Monitoring Plan: Standard Monitors Recovery Plan: PACU
[2018-02-13 16:26] LABS: Hematocrit 22.6 % (35.3-44.9); Hemoglobin 7.1 g/dL (11.5-15.4)
[2018-02-13] MEDS ORDERED: 0.9 % Sodium Chloride 250 ML ONE ×2 (18:17→22:04)
--- NOTE | 2018-02-13 23:23 | Electrocardiograph Report ---
[place] [id number] Test Date: 2018-02-12 Pat Name: Ilene Costa Department: 103 Room: 2N04 Gender: F Pool Coordinator: : [id number] Requested By: Sanjay Sauer Order Number: [id number] Reading MD: Pepe Enciso DO Measurements Intervals [place] Rate: 65 P: 56 CO: 167 QRS: 84 QRSD: 113 T: 43 QT: 443 QTc: 455 Interpretive Statements SINUS RHYTHM IVCD NONSPECIFIC ST-T CHANGES Electronically Signed On 02-13-2018 23:22:20 EDT by Pepe Enciso DO
[2018-02-14] MEDS: Gabapentin 300 MG CAPSULE PO SCH ×4 (00:09→20:14)
[2018-02-14 03:20] LABS: Basophils % 0.2 %; Eosinophils # 0.6 K/mcL (0.0-0.6); Hematocrit 27.3 % (35.3-44.9); Immature Granulocytes % 0.2 % (0-4); Lymphocytes # 1.1 K/mcL (0.6-4.6); Lymphocytes % 22.8 %; Mean Corpuscular HGB Conc 33.7 g/dL (31.6-35.5); Mean Corpuscular Hemoglobin 28.9 pg (28.0-33.3); Mean Corpuscular Volume 85.8 fL (83.0-100.0); Mean Platelet Volume 9.2 fL (9.4-12.4); Monocytes # 0.5 K/mcL (0.0-1.3); Monocytes % 10.2 %; Neutrophils # 2.7 K/mcL (1.6-8.9); Platelet Count 180 K/mcL (140-400); Red Blood Count 3.18 M/mcL (3.82-4.97); Red Cell Distribution Width 14.9 % (11.5-14.5); Segmented Neutrophils % 54.6 %
[2018-02-14 03:21] LABS: Hemoglobin 9.2 g/dL (11.5-15.4)
[2018-02-14] MEDS: Pantoprazole 40 MG in 0.9 % Sodium Chloride Mini Bag 100 ML IVC SCH ×3 (07:36→07:45)
[2018-02-14] MEDS: Insulin LISPRO 300 UNITS/3 ML VIAL SQ SCH ×4 (07:36→20:18)
[2018-02-14] MEDS: Ranolazine 500 MG TAB.ER.12H PO SCH ×2 (07:44→20:14)
[2018-02-14] MEDS: *HR* Ticagrelor 90 MG TABLET PO SCH ×2 (07:45→20:15)
[2018-02-14] MEDS: Aspirin 81 MG TAB.CHEW PO SCH (07:45)
[2018-02-14] MEDS: Venlafaxine XR (24 HR) 75 MG CAP.ER.24H PO SCH (07:45)
[2018-02-14] MEDS: clonazePAM 1 MG TABLET PO PRN ×3 (08:05→22:10)
[2018-02-14] MEDS: OXYCODONE Oral CONC 10 MG/0.5 ML ORAL.SYG SL PRN ×3 (08:05→20:25)
--- NOTE | 2018-02-14 09:23 | Internal Med Progress Note ---
<Navin Sanchez - Last Filed: 02/14/18 09:30> Date of Encounter: 02/14/18 Time of Encounter: 09:21 - Assessment and plan (1) GI bleed Current Visit: Yes Status: Acute Assessment and plan: Hemoglobin trended down to 7.1. Patient received 2 additional units of packed red blood cells. This morning hemoglobin is 9.2. EGD negative for upper GI bleed Plan: Continue trending hemoglobin. The patient hgb continues to drop will order RBC scan. changed to PPI BID by mouth Qualifiers: GI bleed type/associated pathology: unspecified gastrointestinal hemorrhage type Qualified Code(s): K92.2 - Gastrointestinal hemorrhage, unspecified (2) Blood loss anemia Current Visit: Yes Status: Acute Assessment and plan: Secondary GI bleed. Plan as above. (3) Coronary artery disease Current Visit: Yes Status: Chronic Assessment and plan: Denies chest pain continue DAPT Continue statin, metoprolol, her next period Qualifiers: Coronary Disease-Associated Artery/Lesion type: [place] artery [place] vs. transplanted heart: [place] heart Associated angina: without angina Qualified Code(s): I25.10 - Atherosclerotic heart disease of [place] coronary artery without angina pectoris (4) COPD (chronic obstructive pulmonary disease) Current Visit: Yes Status: Chronic Assessment and plan: Stable. Continue home supplemental oxygen. Nebulizer when necessary. 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 She was anticoagulated xeralto. Xeralto on hold for 1 month as per cardiology. Patient will follow up outpatient with cardiology (6) Paroxysmal atrial fibrillation Current Visit: Yes Status: Chronic Assessment and plan: Rate controlled with metoprolol which is on hold due to patient being hypotensive on presentation secondary to acute blood loss anemia. Xeralto on hold due to GI bleed. Plan as above. (7) HTN (hypertension) Current Visit: Yes Status: Chronic Assessment and plan: BP meds held for mild hypotension 2nd to acute blood loss anemia. Qualifiers: Hypertension type: essential hypertension Qualified Code(s): I10 - Essential (primary) hypertension (8) Type 2 diabetes mellitus Current Visit: Yes Status: Chronic Assessment and plan: diabetic diet ACHS Continue low-dose sliding scale insulin. Qualifiers: Diabetes mellitus usp insulin use: without software verification engineer use Diabetes mellitus complication status: with circulatory complication Diabetes mellitus complication detail: with peripheral angiopathy without gangrene Qualified Code(s): E11.51 - Type 2 diabetes mellitus with diabetic peripheral angiopathy without gangrene - Subjective Interval history: No acute events overnight. Patient had additional black bowel movement. Hemoglobin last night was down to 7.1. Patient had 2 more packed red blood cells replaced. He will and this morning is 9.1. Patient denies abdominal pain , nausea, vomiting. - Constitutional Vitals: Temp Pulse Resp BP Pulse Ox 99.1 F 69 16 142/62 97 02/14/18 07:28 02/14/18 07:28 02/14/18 07:28 02/14/18 07:28 02/14/18 07:54 General appearance: Present: A&O X 3, no acute distress, answers questions appropriately - Other Additional findings: General: without distress Heart: Regular rate and rhythm with no murmur Lungs: Clear to auscultation bilaterally Abdomen: Soft nontender, nondistended positive bowel sounds Skin: warm and dry Extremities: Absent pedal edema, Neuro: alert and oriented x3 Vascular: Pedal and radial pulses 2 out of 4 Internal Medicine: Result - Labs CBC & Chem 7: 02/14/18 03:09 02/13/18 04:42 Labs: Short CBC 02/13/18 02/13/18 02/14/18 Range/Units 09:50 15:51 03:09 WBC 5.0 (4.3-11.1) K/mcL Hgb 7.6 L 7.1 L 9.2 L D (11.5-15.4) g/dL Hct 24.4 L 22.6 L 27.3 L (35.3-44.9) % Plt Count 180 (140-400) K/mcL Neutrophils # 2.7 (1.6-8.9) K/mcL Liver Function 02/13/18 Range/Units 09:50 Total Bilirubin 0.4 (0.3-1.0) mg/dL Direct Bilirubin 0.1 (0.0-0.2) mg/dL AST 14 (13-39) Units/L ALT 9 (7-52) Units/L Alkaline Phosphatase 40 (34-104) Units/L Albumin 3.1 L (3.5-5.7) g/dL - ABG Interpretation ABG results: PT/INR, D-dimer PT 14.9 Seconds (9.4-12.1) H D 02/13/18 04:42 - VTE Documentation of Mechanical Device: Intermittent pneumatic compression device Consult Discharge Plan - Plan Referrals: NONE,PCP [Primary Care Provider] - <Nirav Hernandez - Last Filed: 02/14/18 18:42> Date of Encounter: 02/14/18 - Assessment and plan (1) Anemia Current Visit: Yes Status: Acute Qualifiers: Other causes of anemia: acute posthemorrhagic Qualified Code(s): D62 - Acute posthemorrhagic anemia (2) Coronary artery disease Current Visit: Yes Status: Chronic Qualifiers: Coronary Disease-Associated Artery/Lesion type: [place] artery [place] vs. transplanted heart: [place] heart Associated angina: without angina Qualified Code(s): I25.10 - Atherosclerotic heart disease of [place] coronary artery without angina pectoris (3) S/P coronary artery stent placement Current Visit: Yes Status: Chronic (4) COPD (chronic obstructive pulmonary disease) Current Visit: Yes Status: Chronic Qualifiers: COPD type: unspecified COPD Qualified Code(s): J44.9 - Chronic obstructive pulmonary disease, unspecified (5) HTN (hypertension) Current Visit: Yes Status: Chronic Qualifiers: Hypertension type: essential hypertension Qualified Code(s): I10 - Essential (primary) hypertension (6) Paroxysmal atrial fibrillation Current Visit: Yes Status: Chronic (7) Type 2 diabetes mellitus Current Visit: Yes Status: Chronic Qualifiers: Diabetes mellitus software verification engineer insulin use: without software verification engineer use Diabetes mellitus complication status: with circulatory complication Diabetes mellitus complication detail: with peripheral angiopathy without gangrene Qualified Code(s): E11.51 - Type 2 diabetes mellitus with diabetic peripheral angiopathy without gangrene (8) Chronic diastolic (congestive) heart failure Current Visit: No Status: Chronic (9) Tobacco abuse Current Visit: No Status: Chronic (10) Chronic respiratory failure with hypoxia Current Visit: Yes Status: Chronic - Constitutional Vitals: Temp Pulse Resp BP Pulse Ox 97.9 F 64 16 137/54 98 02/14/18 11:13 02/14/18 16:11 02/14/18 16:11 02/14/18 16:11 02/14/18 16:11 Internal Medicine: Result - Labs CBC & Chem 7: 02/14/18 15:55 02/13/18 04:42 Labs: Short CBC 02/14/18 02/14/18 02/14/18 Range/Units 03:09 09:52 15:55 WBC 5.0 (4.3-11.1) K/mcL Hgb 9.2 L D 8.9 L 9.4 L (11.5-15.4) g/dL Hct 27.3 L 28.6 L 29.5 L (35.3-44.9) % Plt Count 180 (140-400) K/mcL Neutrophils # 2.7 (1.6-8.9) K/mcL - ABG Interpretation ABG results: PT/INR, D-dimer PT 14.9 Seconds (9.4-12.1) H D 02/13/18 04:42 - Attending Attestation I examined this patient and my medical decision-making was reviewed with the Resident Physician on 02/14/18. I agree with the documented findings, disposition and treatment plan as described except to the extent set forth below. Ms Costa is currently admitted for acute GI bleed and anemia. She remains moderate to high risk due to potential for worsening clinical status. Ms Costa feels OK. No abd pain. H/H remaining OK at this time. To have outpatient capsule endoscopy. Exam alert Comfortable Mucus membranes dry Heart irreg No wheeze abd soft I/P 1. GI bleed 2. Anemia Will monitor H/H and if stable anticipate d/c tomorrow. Further diagnoses and plan as above.
[2018-02-14 10:17] LABS: Hematocrit 28.6 % (35.3-44.9); Hemoglobin 8.9 g/dL (11.5-15.4)
--- NOTE | 2018-02-14 10:52 | Gastroenterology Progress Note ---
Date of Encounter: 02/14/18 Time of Encounter: 10:51 - Assessment and plan (1) GI bleed Current Visit: Yes Status: Acute Assessment and plan: 67 yo female known to service here for GI bleeding, currently on dual anti- platelet therapy and xarelto s/p stent placement for STEMI in december 2017 and recent hospitalization for GI bleed this month. -Colonoscopy 02/03/2018- 4 polyps in transverse and ascending colon to be resected once patient off of dual antiplatelet therapy. Non-bleeding hemorrhoids. -EGD 02/02/2018- grade A esophagitis, gastritis, and AVM treated with cautery. -Push enteroscopy yesterday (02/13/2018) demonstrated no acute source of bleeding. Gastritis noted. -Xarelto currently held, ASA and brillianta being continued per primary team. -Patient received 2 more units of RBCs last night after Hgb trended downwards. One black bowel movement. -Patient needs capsule study as an outpatient. -Continue to trend H&H, transfuse per primary team. Qualifiers: GI bleed type/associated pathology: unspecified gastrointestinal hemorrhage type Qualified Code(s): K92.2 - Gastrointestinal hemorrhage, unspecified (2) Blood loss anemia Current Visit: Yes Status: Acute Assessment and plan: s/p 4 units blood during this hospitalization. -continue to monitor H&H. -transfuse per primary team. (3) S/P coronary artery stent placement Current Visit: Yes Status: Chronic Assessment and plan: stent December 2017 -on ASA and brillinta. -agree with continuing dual antiplatelet. - Time Spent With Patient Total time spent is greater than 50% in coordination of care (as documented) at patient's floor/unit and/or counseling patient: - Subjective Interval history: Black bowel movement last night. Hemoglobin was down to 7.1. Patient had 2 more PRBCs replaced last night. Hgb this morning is 9.1. Patient reports nausea and abdominal pain in infraumbilical region. - Constitutional Vitals: Temp Pulse Resp BP Pulse Ox 99.1 F 69 16 142/62 97 02/14/18 07:28 02/14/18 07:28 02/14/18 07:28 02/14/18 07:28 02/14/18 07:54 General appearance: Present: cooperative, A&O X 3, pleasant, no acute distress - Head Head exam: Present: atraumatic - ENT ENT exam: Present: normal exam - Respiratory Respiratory exam: Present: CTAB - Cardiovascular Cardiovascular exam: Present: RRR, +S1, +S2. Absent: systolic murmur - GI/Abdominal GI/Abdominal exam: Present: normal bowel sounds, soft, tenderness (mid-lower quadrant), no peritoneal signs. Absent: firm, guarding, pulsatile mass, rebound , rigid - Expanded GI/Abdominal Exam GI/Abdominal exam expanded: Absent: ascites - Extremities Exam Extremities exam: Present: radial pulses palpable and symmetrical. Absent: pedal edema, tenderness - Psychiatric Psychiatric exam: Present: normal affect, normal mood - Skin Skin exam: Present: dry, intact, warm Results - Labs CBC & Chem 7: 02/14/18 09:52 02/13/18 04:42 Labs: Last Result Calcium 8.4 mg/dL (8.6-10.3) L 02/13/18 04:42 Entire Visit Hgb 8.9 g/dL (11.5-15.4) L 02/14/18 09:52 Hct 28.6 % (35.3-44.9) L 02/14/18 09:52 PT 14.9 Seconds (9.4-12.1) H D 02/13/18 04:42 Total Bilirubin 0.4 mg/dL (0.3-1.0) 02/13/18 09:50 AST 14 Units/L (13-39) 02/13/18 09:50 ALT 9 Units/L (7-52) 02/13/18 09:50 - ABG ABG results: PT/INR, D-dimer PT 14.9 Seconds (9.4-12.1) H D 02/13/18 04:42 - VTE Documentation of Mechanical Device: Intermittent pneumatic compression device Consult Discharge Plan - Plan Referrals: NONE,PCP [Primary Care Provider] -
[2018-02-14 16:11] LABS: Hematocrit 29.5 % (35.3-44.9); Hemoglobin 9.4 g/dL (11.5-15.4)
[2018-02-15 07:25] VITALS: BP 116/57
[2018-02-15] MEDS: Insulin LISPRO 300 UNITS/3 ML VIAL SQ SCH (07:44)
[2018-02-15] MEDS: Gabapentin 300 MG CAPSULE PO SCH (07:46)
[2018-02-15] MEDS: Aspirin 81 MG TAB.CHEW PO SCH (07:46)
[2018-02-15] MEDS: clonazePAM 1 MG TABLET PO PRN (07:46)
[2018-02-15] MEDS: Ranolazine 500 MG TAB.ER.12H PO SCH (07:47)
[2018-02-15] MEDS: *HR* Ticagrelor 90 MG TABLET PO SCH (07:47)
[2018-02-15] MEDS: Venlafaxine XR (24 HR) 75 MG CAP.ER.24H PO SCH (07:47)
[2018-02-15] MEDS: OXYCODONE Oral CONC 10 MG/0.5 ML ORAL.SYG SL PRN (07:49)
--- NOTE | 2018-02-15 09:22 | Discharge Summary ---
<Navin Sanchez - Last Filed: 02/15/18 10:33> Date of Encounter: 02/15/18 Time of Encounter: 09:10 - Discharge Diagnosis (1) GI bleed Priority: Primary Status: Resolved Qualifiers: GI bleed type/associated pathology: unspecified gastrointestinal hemorrhage type Qualified Code(s): K92.2 - Gastrointestinal hemorrhage, unspecified (2) Blood loss anemia Priority: Secondary Status: Acute (3) Coronary artery disease Priority: Secondary Status: Chronic Qualifiers: Coronary Disease-Associated Artery/Lesion type: [place] artery [place] vs. transplanted heart: [place] heart Associated angina: without angina Qualified Code(s): I25.10 - Atherosclerotic heart disease of [place] coronary artery without angina pectoris (4) COPD (chronic obstructive pulmonary disease) Priority: Secondary Status: Chronic Qualifiers: COPD type: unspecified COPD Qualified Code(s): J44.9 - Chronic obstructive pulmonary disease, unspecified (5) History of pulmonary embolism Priority: Secondary Status: Chronic (6) Paroxysmal atrial fibrillation Priority: Secondary Status: Chronic (7) HTN (hypertension) Priority: Secondary Status: Chronic Qualifiers: Hypertension type: essential hypertension Qualified Code(s): I10 - Essential (primary) hypertension (8) Type 2 diabetes mellitus Priority: Secondary Status: Chronic Qualifiers: Diabetes mellitus residential insulin use: without middle or intermediate school principal use Diabetes mellitus complication status: with circulatory complication Diabetes mellitus complication detail: with peripheral angiopathy without gangrene Qualified Code(s): E11.51 - Type 2 diabetes mellitus with diabetic peripheral angiopathy without gangrene Hospital course: Ms. Costa is a 67 year old female presented with chief complaint of black stools for the last 6 days. She had fatigue, weakness, runny nose, cough, abdominal pain with this. Patient was recently hospitalized on 02/05/18 for GI bleed and had a EGD at that time which was negative and a colonoscopy as well. In her previous admission she received 4 units red blood cells. Patient had recent PCI last month on 01/16/18 with 1 stent placement and is on aspirin and [place] tie. Patient is also on xeralto for A. fib/history of DVT PE. Patient was given a total of 4 units of packed red blood cells during this admission. Patient underwent repeat EGD with push enteroscopy which was negative for any acute bleeding. Pathology of gastric brushing was negative for malignancy or H. pylori. GI plans to do outpatient pill endoscopy which has not been set up. Cardiology was consulted for recommendations on antiplatelet therapy and anticoagulation therapy. Patient will continued to antiplatelet therapy for at least 1 year from PCI. Patient will discontinue xeralto and follow-up with cardiology in 1 month for reconsideration of anticoagulation. Patient will be sent home on PPI twice a day. Today patient is tolerating her diet. She denies nausea vomiting. Follow up with pcp Discharge discussed with: patient, family - Time Spent with Patient Total time spent providing and/or coordinating discharge services: - Discharge Medications Prescriptions: Albuterol Neb [Proventil Neb] 2.5 mg IH Q4HR PRN #100 vial.neb PRN Reason: Dyspnea Albuterol Sulfate [Albuterol Inhaler] 2 puff IH Q4H PRN #1 inhaler PRN Reason: Shortness Of Breath Aspirin 81 mg PO DAILY #30 tab.chew Atorvastatin Calcium [Lipitor] 80 mg PO HS #30 tablet clonazePAM [Klonopin] 1 mg PO TID PRN 5 Days #15 tablet PRN Reason: Anxiety Dicyclomine [Bentyl] 20 mg PO QID #120 capsule Furosemide [Lasix] 20 mg PO DAILY #30 tablet Gabapentin [Neurontin] 600 mg PO TID #90 capsule Isosorbide DInitrate [Isosorbide Dinitrate] 30 mg PO BID #60 tablet Metformin HCl [Glucophage] 1,000 mg PO BID #60 tablet Metoprolol Tartrate 50 mg PO BID #60 tablet Omeprazole [PriLOSEC] 40 mg PO BID #60 cap Ranolazine [Ranexa] 500 mg PO BID 30 Days #60 tab.er.12h Ticagrelor [Brilinta] 90 mg PO BID #60 tablet Venlafaxine HCl [Venlafaxine HCl ER] 75 mg PO DAILY #30 cap.er.24h Home Medications: Gabapentin 600 mg PO TID 10/22/16 [History] Ondansetron [Zofran ODT] 8 mg SL Q8H PRN 01/21/18 [History] Oxygen 2.5 l NS AD 02/01/18 [History] Oxycodone HCl/Acetaminophen [Percocet 10-325 mg Tablet] 1 each PO TID PRN 7 Days #20 tablet 02/05/18 [Rx] Albuterol Neb [Proventil Neb] 2.5 mg IH Q4HR PRN #100 vial.neb 02/15/18 [Rx] Albuterol Sulfate [Albuterol Inhaler] 2 puff IH Q4H PRN #1 inhaler 02/15/18 [Rx] Aspirin 81 mg PO DAILY #30 tab.chew 02/15/18 [Rx] Atorvastatin Calcium [Lipitor] 80 mg PO HS #30 tablet 02/15/18 [Rx] Dicyclomine [Bentyl] 20 mg PO QID #120 capsule 02/15/18 [Rx] Furosemide [Lasix] 20 mg PO DAILY #30 tablet 02/15/18 [Rx] Gabapentin [Neurontin] 600 mg PO TID #90 capsule 02/15/18 [Rx] Isosorbide DInitrate [Isosorbide Dinitrate] 30 mg PO BID #60 tablet 02/15/18 [Rx ] Metformin HCl [Glucophage] 1,000 mg PO BID #60 tablet 02/15/18 [Rx] Metoprolol Tartrate 50 mg PO BID #60 tablet 02/15/18 [Rx] Omeprazole [PriLOSEC] 40 mg PO BID #60 cap 02/15/18 [Rx] Ranolazine [Ranexa] 500 mg PO BID 30 Days #60 tab.er.12h 02/15/18 [Rx] Ticagrelor [Brilinta] 90 mg PO BID #60 tablet 02/15/18 [Rx] Venlafaxine HCl [Venlafaxine HCl ER] 75 mg PO DAILY #30 cap.er.24h 02/15/18 [Rx] clonazePAM [Klonopin] 1 mg PO TID PRN 5 Days #15 tablet 02/15/18 [Rx] Allergies/Adverse Reactions: 3 Allergy/AdvReac Type Severity Reaction Status Date / Time No Known Allergies Allergy Verified 01/21/18 11:53 Date of admission: 02/12/18 18:02 Primary care physician: PCP NONE Consults: 02/12/18 19:22 Consult to Nutrition [CONS] Routine Comment: Consulting Provider: NUTRITION Reason for Dietary Consult: Other Other:: Patient with unexplained GI bleeding and unexplained weight loss 02/12/18 21:08 Consult to Cardiology [CONS] Routine Comment: Consulting Provider: [facility] [place] Reason for Consult: GI bleed. On brillinta, asa, and xarelto - holding now. Consult for further anticoagulation recommendations. Call Completed: No Consult to Gastroenterology [CONS] Routine Consulting Provider: [facility] Reason for Consult: GI bleed. Vitals stable. On anticoagulation. Recent admission for GI bleed. Call Completed: No Discharging clinician: Navin Sanchez Anticipated date of discharge: 02/15/18 - Constitutional Vitals: Temp Pulse Resp BP Pulse Ox 98.1 F 57 16 116/57 98 02/15/18 07:23 02/15/18 07:23 02/15/18 07:23 02/15/18 07:23 02/15/18 07:23 General appearance: Present: A&O X 3, no acute distress, answers questions appropriately - Other Additional findings: General: Pleasant without distress HEENT: Head atraumatic, normocephalic, EOMI, PERRL, neck nontender to palpation , absent lymphadenopathy, Moist Mucous Membranes, Heart: Regular rate and rhythm with no murmur Lungs: Clear to auscultation bilaterally Abdomen: Soft nontender, nondistended positive bowel sounds Skin: warm and dry Extremities: Absent pedal edema, Neuro: Cranial nerves II through XII intact, UE and LE sensation equal bilaterally, UE and LEstrength 5/5, alert oriented 3, Vascular: Pedal and radial pulses 2 out of 4 - Patient Status Disposition: Home, Self-Care Condition: Fair Functional capacity at discharge: independent ambulation Overall status at discharge: patient is progressing back to baseline - Discharge Instructions Instructions: Anemia (GEN) Follow Up With: Julia Ny, [employer] [Advanced Practice Nurse] - 02/22/18 1:00 pm (Please show up for appointment or call 24 hrs prior to appointment to cancel of reschedule or patient will be cancelled as a patient and will have to obtain own family physician.) Patricio Torrez MD [Partnered Physician] - 03/13/18 2:40 pm - Diet and Activity Activity: increase activity as tolerated Diet: diabetic diet, low fat, low cholesterol, low salt diet - VTE Documentation of Mechanical Device: Intermittent pneumatic compression device <Nirav Hernandez - Last Filed: 02/15/18 17:41> Date of Encounter: 02/15/18 - Discharge Diagnosis (1) Anemia Priority: Primary Status: Acute Qualifiers: Anemia type: other cause Other causes of anemia: acute posthemorrhagic Qualified Code(s): D62 - Acute posthemorrhagic anemia (2) GI bleed Status: Resolved Qualifiers: GI bleed type/associated pathology: unspecified gastrointestinal hemorrhage type Qualified Code(s): K92.2 - Gastrointestinal hemorrhage, unspecified (3) Coronary artery disease Status: Chronic Qualifiers: Coronary Disease-Associated Artery/Lesion type: [place] artery [place] vs. transplanted heart: [place] heart Associated angina: without angina Qualified Code(s): I25.10 - Atherosclerotic heart disease of [place] coronary artery without angina pectoris (4) S/P coronary artery stent placement Priority: Secondary Status: Chronic (5) COPD (chronic obstructive pulmonary disease) Status: Chronic Qualifiers: COPD type: emphysema Emphysema type: centrilobular Qualified Code(s): J43.2 - Centrilobular emphysema (6) HTN (hypertension) Status: Chronic Qualifiers: Hypertension type: essential hypertension Qualified Code(s): I10 - Essential (primary) hypertension (7) Paroxysmal atrial fibrillation Status: Chronic (8) Type 2 diabetes mellitus Status: Chronic Qualifiers: Diabetes mellitus middle or intermediate school principal insulin use: without middle or intermediate school principal use Diabetes mellitus complication status: with circulatory complication Diabetes mellitus complication detail: with peripheral angiopathy without gangrene Qualified Code(s): E11.51 - Type 2 diabetes mellitus with diabetic peripheral angiopathy without gangrene (9) Chronic diastolic (congestive) heart failure Priority: Secondary Status: Chronic (10) Tobacco abuse Priority: Secondary Status: Chronic (11) Chronic respiratory failure with hypoxia Priority: Secondary Status: Chronic Hospital course: Ms. Costa is a 67 year old female - Time Spent with Patient Total time spent providing and/or coordinating discharge services: 39min Date of admission: 02/12/18 18:02 Primary care physician: PCP NONE Consults: 02/12/18 19:22 Consult to Nutrition [CONS] Routine Comment: Consulting Provider: NUTRITION Reason for Dietary Consult: Other Other:: Patient with unexplained GI bleeding and unexplained weight loss 02/12/18 21:08 Consult to Cardiology [CONS] Routine Comment: Consulting Provider: [facility] Reason for Consult: GI bleed. On brillinta, asa, and xarelto - holding now. Consult for further anticoagulation recommendations. Call Completed: No Consult to Gastroenterology [CONS] Routine Consulting Provider: [facility] Reason for Consult: GI bleed. Vitals stable. On anticoagulation. Recent admission for GI bleed. Call Completed: No - Constitutional Vitals: Temp Pulse Resp BP Pulse Ox 98.1 F 57 16 116/57 98 02/15/18 07:23 02/15/18 07:23 02/15/18 07:23 02/15/18 07:23 02/15/18 07:23 - Attending Attestation I examined this patient and my medical decision-making was reviewed with the Resident Physician on 02/15/18. I agree with the documented findings, disposition and treatment plan as described except to the extent set forth below. Ms Costa has been admitted with recurrent GI bleed after resuming Xarelto. She received blood transfusion and underwent EGD with no evidence of acute bleeding. She had colonoscopy last admission. She has not had any further drop in her hemoglobin overnight. She is afebrile at this time. She is ready for discharge home and outpatient follow up. Exam alert Comfortable Mucus membranes dry Heart distant Lungs clear Abd soft Plan D/C home today.
--- NOTE | 2018-02-15 10:00 | Gastroenterology Progress Note ---
Date of Encounter: 02/15/18 Time of Encounter: 09:58 - Assessment and plan (1) GI bleed Current Visit: Yes Status: Resolved Assessment and plan: 67 yo female known to service here for GI bleeding, currently on dual anti- platelet therapy and xarelto s/p stent placement for STEMI in december 2017 and recent hospitalization for GI bleed this month. -Colonoscopy 02/03/2018- 4 polyps in transverse and ascending colon to be resected once patient off of dual antiplatelet therapy. Non-bleeding hemorrhoids. -EGD 02/02/2018- grade A esophagitis, gastritis, and AVM treated with cautery. -Push enteroscopy (02/13/2018) demonstrated no acute source of bleeding. Gastritis noted. -Esophageal brushings normal cytology. -Xarelto currently held, ASA and brillianta being continued per primary team. -Hgb stable, no signs of bleeding. -FU scheduled with Dr. Torrez. -Capsule study as an outpatient. Qualifiers: GI bleed type/associated pathology: unspecified gastrointestinal hemorrhage type Qualified Code(s): K92.2 - Gastrointestinal hemorrhage, unspecified (2) Blood loss anemia Current Visit: Yes Status: Acute Assessment and plan: s/p 4 units blood during this hospitalization. -Hgb stable. (3) S/P coronary artery stent placement Current Visit: Yes Status: Chronic Assessment and plan: stent December 2017 -on ASA and brillinta. -agree with continuing dual antiplatelet. -recommendations regarding anticoagulation per cardiology. - Time Spent With Patient Total time spent is greater than 50% in coordination of care (as documented) at patient's floor/unit and/or counseling patient: - Subjective Interval history: No melena or signs of continued bleeding. Patient tearful which she attributes to her anxiety. She denies abdominal pain, nausea, or vomitting. She expresses understanding that capsule study will be performed as an outpatient. - Constitutional Vitals: Temp Pulse Resp BP Pulse Ox 98.1 F 57 16 116/57 98 02/15/18 07:23 02/15/18 07:23 02/15/18 07:23 02/15/18 07:23 02/15/18 07:23 General appearance: Present: cooperative, A&O X 3, pleasant, no acute distress - Head Head exam: Present: atraumatic - Respiratory Respiratory exam: Present: CTAB. Absent: rales, respiratory distress, rhonchi - Cardiovascular Cardiovascular exam: Present: RRR, +S1, +S2 - GI/Abdominal GI/Abdominal exam: Present: normal bowel sounds, soft, no peritoneal signs. Absent: guarding, pulsatile mass, tenderness - Extremities Exam Extremities exam: Present: radial pulses palpable and symmetrical. Absent: calf tenderness, pedal edema - Neurological Exam Neurological exam: Present: alert, oriented X3, no focal deficits - Skin Skin exam: Present: dry, intact, warm Results - Labs CBC & Chem 7: 02/14/18 15:55 02/13/18 04:42 Labs: Last Result Calcium 8.4 mg/dL (8.6-10.3) L 02/13/18 04:42 Entire Visit Hgb 9.4 g/dL (11.5-15.4) L 02/14/18 15:55 Hct 29.5 % (35.3-44.9) L 02/14/18 15:55 PT 14.9 Seconds (9.4-12.1) H D 02/13/18 04:42 Total Bilirubin 0.4 mg/dL (0.3-1.0) 02/13/18 09:50 AST 14 Units/L (13-39) 02/13/18 09:50 ALT 9 Units/L (7-52) 02/13/18 09:50 - ABG ABG results: PT/INR, D-dimer PT 14.9 Seconds (9.4-12.1) H D 02/13/18 04:42 - VTE Documentation of Mechanical Device: Intermittent pneumatic compression device Consult Discharge Plan - Plan Instructions: Anemia (GEN) Referrals: Julia Ny, [facility] [Advanced Practice Nurse] - 02/22/18 1:00 pm (Please show up for appointment or call 24 hrs prior to appointment to cancel of reschedule or patient will be cancelled as a patient and will have to obtain own family physician.) Patricio Torrez MD [Partnered Physician] - 03/13/18 2:40 pm Prescriptions: clonazePAM [Klonopin] 1 mg PO TID PRN 5 Days #15 tablet PRN Reason: Anxiety
== END 2018-02-15 11:02 | disposition home or self-care (01) | DRG 392 ==
LOC: EMEROO 15:04 → SUATTDRO 18:02 → 2NNU 18:02
PROVIDERS: ADMIT Student in an Organized Health Care Education/Training Program; ATTEND Internal Medicine

== ENCOUNTER 2019-06-12 18:34 | Inpatient (IN) ==
[2019-06-12] MEDS ORDERED: Ipratropium/Albuterol Neb 3 ML IH ONE (19:37)
[2019-06-12] MEDS ORDERED: methylPREDNISolone 125 MG/2 ML VIAL IVP ONE (19:37)
[2019-06-12 20:09] LABS: Basophils % 0.4 %; Eosinophils # 0.2 K/mcL (0.0-0.6); Eosinophils % 2.3 %; Hematocrit 36.1 % (35.3-44.9); Immature Granulocytes % 0.4 % (0-4); Lymphocytes # 1.6 K/mcL (0.6-4.6); Lymphocytes % 21.3 %; Mean Corpuscular HGB Conc 30.5 g/dL (31.6-35.5); Mean Corpuscular Hemoglobin 27.8 pg (28.0-33.3); Mean Corpuscular Volume 91.2 fL (83.0-100.0); Mean Platelet Volume 9.4 fL (9.4-12.4); Monocytes # 0.4 K/mcL (0.0-1.3); Monocytes % 5.6 %; Neutrophils # 5.4 K/mcL (1.6-8.9); Platelet Count 260 K/mcL (140-400); Red Blood Count 3.96 M/mcL (3.82-4.97); Red Cell Distribution Width 17.3 % (11.5-14.5); White Blood Count 7.7 K/mcL (4.3-11.1)
[2019-06-12 20:14] LABS: VBG HCO3 26 mEq/L (21-27); VBG PCO2 51 mmHg (41-51); VBG PH 7.32 pH Units (7.32-7.42); VBG PO2 94 mmHg (25-50)
[2019-06-12 20:17] LABS: Bilirubin,Urine Negative (Negative); Blood,Urine Negative (Negative); Clarity,Urine Cloudy (Clear); Color,Urine Yellow (Yellow); Glucose,Urine (UA) Normal (Normal); Ketones,Urine Negative (Negative); Leukocyte Esterase,Urine Moderate (Negative); Nitrite,Urine Positive (Negative); Protein,Urine Trace mg/dL (Neg-Trace); Specific Gravity,Urine 1.013 (1.010-1.025); Urobilinogen,Urine Normal (Normal)
[2019-06-12 20:19] LABS: Bacteria,Urine Many per hpf (None-Few); Hyaline Casts,Urine None Seen per lpf (None-Few); RBC,Urine 0-3 per hpf (0-3); Squamous Epithelial Cell,Urine Moderate per lpf (None-Few); WBC,Urine TNTC per hpf (0-3)
[2019-06-12 20:28] LABS: BUN/Creatinine Ratio 18 (6-26); Blood Urea Nitrogen 17 mg/dL (8-23); Carbon Dioxide 27 mEq/L (23-29); Chloride 104 mEq/L (98-107); Glucose 156 mg/dL (70-105); Osmolality,Calculated 301 (280-300); Potassium 3.6 mEq/L (3.5-5.1); Sodium 143 mEq/L (136-145); eGFR For African Americans > 60 (> 60); eGFR For Non-African Americans 57 (> 60)
[2019-06-12] MEDS ORDERED: cefTRIAXone 1,000 MG in Water for inj. (sterile) 10 ML IVP ONE (21:03)
[2019-06-12] MEDS ORDERED: Furosemide 40 MG/4 ML VIAL IVP ONE (21:04)
[2019-06-12 21:25] LABS: Troponin I 0.03 ng/mL (< 0.04)
[2019-06-12] MEDS ORDERED: Dextrose Gel 15 GM/37.5 ML TUBE PO PRN ×2 (23:43)
[2019-06-12] MEDS ORDERED: *HR* Dextrose 50 % in Water (Syg) 50 ML SYRINGE IVP PRN (23:43)
[2019-06-13] MEDS ORDERED: Acetaminophen 325 MG TABLET PO PRN (01:33)
[2019-06-13] MEDS ORDERED: tiZANidine 4 MG TABLET PO PRN (01:41)
[2019-06-13] MEDS ORDERED: *HR* Metoprolol 5 MG/5 ML VIAL IVP ONE (01:46)
[2019-06-13] MEDS: Azithromycin 500 MG in D5% in Water 250 ML IVPB SCH (02:26)
[2019-06-13] MEDS: Ipratropium/Albuterol Neb 3 ML IH SCH ×3 (03:35→07:16)
[2019-06-13] MEDS: Ondansetron ODT 4 MG TAB.RAPDIS SL PRN (03:48)
[2019-06-13] MEDS ORDERED: Insulin LISPRO 300 UNITS/3 ML VIAL SQ SCH ×2 (07:30→21:00)
[2019-06-13] MEDS ORDERED: Ipratropium/Albuterol Neb 3 ML IH PRN (08:48)
[2019-06-13] MEDS ORDERED: Furosemide 40 MG/4 ML VIAL IVP SCH (09:00)
[2019-06-13] MEDS ORDERED: predniSONE 20 MG TABLET PO SCH (09:00)
[2019-06-13] MEDS ORDERED: DilTIAZem 50 MG in 0.9 % Sodium Chloride 40 ML IVC SCH (09:00)
[2019-06-13] MEDS: Ranolazine 500 MG TAB.ER.12H PO SCH ×2 (09:28→21:15)
[2019-06-13] MEDS: Aspirin 81 MG TAB.CHEW PO SCH (09:28)
[2019-06-13] MEDS: Magnesium Oxide 400 MG TABLET PO SCH (09:28)
[2019-06-13] MEDS: Gabapentin 300 MG CAPSULE PO SCH ×3 (09:29→21:15)
[2019-06-13] MEDS: Apixaban 5 MG TABLET PO SCH ×2 (09:29→21:15)
[2019-06-13] MEDS: Cholecalciferol (D-3) 1,000 UNIT (25MCG) TABLET PO SCH (09:29)
[2019-06-13] MEDS: Sulfamethoxazole/Trimeth DS 1 EACH TABLET PO SCH ×2 (09:29→21:15)
[2019-06-13] MEDS: cefTRIAXone 1,000 MG in Water for inj. (sterile) 10 ML IVP SCH (09:29)
[2019-06-13] MEDS: *HR* Metformin 500 MG TABLET PO SCH ×2 (09:29→21:15)
[2019-06-13] MEDS ORDERED: *HR* Dextrose 50 % in Water (Syg) 50 ML SYRINGE IVP PRN (10:46)
[2019-06-13] MEDS ORDERED: Dextrose Gel 15 GM/37.5 ML TUBE PO PRN ×2 (10:46)
[2019-06-13] MEDS: clonazePAM 1 MG TABLET PO PRN (11:08)
[2019-06-13] MEDS: MethylPREDNISolone 40 MG/ML VIAL IVP SCH ×3 (11:08→23:50)
[2019-06-13] MEDS: Insulin LISPRO 300 UNITS/3 ML VIAL SQ SCH ×3 (13:40→21:16)
[2019-06-13 15:24] LABS: ABG Base Excess 3 mEq/L (-2 to 3); ABG HCO3 30 mEq/L (21-27); ABG Oxygen Saturation 86 % (95-98); ABG PCO2 55 mmHg (35-45); ABG PH 7.34 pH Units (7.32-7.45); ABG PO2 56 mmHg (85-104); ABG TCO2 31 mEq/L (20-26)
[2019-06-14] MEDS: Azithromycin 500 MG in D5% in Water 250 ML IVPB SCH (01:58)
[2019-06-14] MEDS: clonazePAM 1 MG TABLET PO PRN ×2 (02:04→09:36)
[2019-06-14] MEDS: Ondansetron ODT 4 MG TAB.RAPDIS SL PRN ×3 (02:24→20:49)
[2019-06-14] MEDS ORDERED: Ondansetron 4 MG/2 ML VIAL IVP ONE (03:44)
[2019-06-14] MEDS ORDERED: Ondansetron 4 MG/2 ML VIAL ONE (03:44)
[2019-06-14] MEDS ORDERED: 0.9 % Sodium Chloride 1,000 ML ONE (03:46)
[2019-06-14 03:49] LABS: ABG Base Excess -6 mEq/L (-2 to 3); ABG HCO3 22 mEq/L (21-27); ABG Oxygen Saturation 100 % (95-98); ABG PCO2 50 mmHg (35-45); ABG PH 7.25 pH Units (7.32-7.45); ABG PO2 229 mmHg (85-104); ABG TCO2 23 mEq/L (20-26)
[2019-06-14] MEDS ORDERED: Albumin 25% 25gram/100mL 25 GM/100 ML IV.SOLN IVPB ONE (03:58)
[2019-06-14 04:05] LABS: Albumin 3.4 g/dL (3.5-5.7); Albumin/Globulin Ratio 1.1 (1.1-2.2); Bilirubin,Total 0.4 mg/dL (0.3-1.0); Calcium 8.9 mg/dL (8.6-10.3); Globulin 3.1 g/dL (2.4-3.5); Magnesium 1.7 mg/dL (1.6-2.6); Potassium 4.8 mEq/L (3.5-5.1); Total Protein 6.5 g/dL (6.4-8.9)
[2019-06-14] MEDS: Insulin LISPRO 300 UNITS/3 ML VIAL SQ SCH ×5 (04:09→20:26)
[2019-06-14] MEDS: MethylPREDNISolone 40 MG/ML VIAL IVP SCH ×3 (05:24→17:05)
[2019-06-14 06:02] LABS: Basophils % 0.1 %; Mean Platelet Volume 9.9 fL (9.4-12.4)
[2019-06-14 06:04] LABS: Hematocrit 37.7 % (35.3-44.9); Hemoglobin 10.7 g/dL (11.5-15.4); Lymphocytes # 0.6 K/mcL (0.6-4.6); Lymphocytes % 4.7 %; Mean Corpuscular HGB Conc 28.4 g/dL (31.6-35.5); Mean Corpuscular Hemoglobin 27.4 pg (28.0-33.3); Mean Corpuscular Volume 96.4 fL (83.0-100.0); Monocytes # 0.2 K/mcL (0.0-1.3); Monocytes % 1.7 %; Neutrophils # 12.5 K/mcL (1.6-8.9); Platelet Count 319 K/mcL (140-400); Red Blood Count 3.91 M/mcL (3.82-4.97); Red Cell Distribution Width 17.7 % (11.5-14.5); Segmented Neutrophils % 92.5 %; White Blood Count 13.5 K/mcL (4.3-11.1)
[2019-06-14] MEDS: *HR* Metformin 500 MG TABLET PO SCH ×2 (08:40→20:27)
[2019-06-14] MEDS: Magnesium Oxide 400 MG TABLET PO SCH (08:40)
[2019-06-14] MEDS: Cholecalciferol (D-3) 1,000 UNIT (25MCG) TABLET PO SCH (08:41)
[2019-06-14] MEDS: Sulfamethoxazole/Trimeth DS 1 EACH TABLET PO SCH ×2 (08:41→20:49)
[2019-06-14] MEDS: Gabapentin 300 MG CAPSULE PO SCH ×3 (08:41→20:49)
[2019-06-14] MEDS: Aspirin 81 MG TAB.CHEW PO SCH (08:41)
[2019-06-14] MEDS: Apixaban 5 MG TABLET PO SCH ×2 (08:41→21:49)
[2019-06-14] MEDS: cefTRIAXone 1,000 MG in Water for inj. (sterile) 10 ML IVP SCH (08:42)
[2019-06-14 09:12] LABS: Estimated Average Glucose 140 mg/dl
[2019-06-14] MEDS: Ranolazine 500 MG TAB.ER.12H PO SCH ×2 (09:29→20:49)
[2019-06-14] MEDS ORDERED: Furosemide 20 MG/2 ML VIAL IVP SCH (15:00)
[2019-06-14] MEDS ORDERED: Ringers Solution, Lactated 1,000 ML IVC SCH (15:45)
[2019-06-15] MEDS: Azithromycin 500 MG in D5% in Water 250 ML IVPB SCH (02:01)
[2019-06-15] MEDS: MethylPREDNISolone 40 MG/ML VIAL IVP SCH ×4 (02:01→17:43)
[2019-06-15 04:04] LABS: Basophils % 0.1 %; Hematocrit 33.6 % (35.3-44.9); Hemoglobin 9.9 g/dL (11.5-15.4); Immature Granulocytes % 0.9 % (0-4); Lymphocytes % 6.4 %; Mean Corpuscular HGB Conc 29.5 g/dL (31.6-35.5); Mean Corpuscular Hemoglobin 27.5 pg (28.0-33.3); Mean Corpuscular Volume 93.3 fL (83.0-100.0); Monocytes # 0.8 K/mcL (0.0-1.3); Monocytes % 5.1 %; Neutrophils # 13.1 K/mcL (1.6-8.9); Nucleated Red Blood Cells 0.1 /100 WBC (0); Platelet Count 306 K/mcL (140-400); Red Cell Distribution Width 17.5 % (11.5-14.5); Segmented Neutrophils % 87.5 %; White Blood Count 14.9 K/mcL (4.3-11.1)
[2019-06-15 04:26] LABS: VBG HCO3 25 mEq/L (21-27); VBG PCO2 65 mmHg (41-51); VBG PH 7.19 pH Units (7.32-7.42); VBG PO2 62 mmHg (25-50)
[2019-06-15 04:27] LABS: Calcium 8.8 mg/dL (8.6-10.3)
[2019-06-15 05:00] LABS: ABG Base Excess -2 mEq/L (-2 to 3); ABG HCO3 25 mEq/L (21-27); ABG Oxygen Saturation 96 % (95-98); ABG PCO2 54 mmHg (35-45); ABG PH 7.28 pH Units (7.32-7.45); ABG PO2 94 mmHg (85-104); ABG TCO2 27 mEq/L (20-26)
[2019-06-15] MEDS: Insulin LISPRO 300 UNITS/3 ML VIAL SQ SCH ×4 (09:41→21:30)
[2019-06-15] MEDS: cefTRIAXone 1,000 MG in Water for inj. (sterile) 10 ML IVP SCH (09:41)
[2019-06-15] MEDS: Magnesium Oxide 400 MG TABLET PO SCH (09:42)
[2019-06-15] MEDS: Sulfamethoxazole/Trimeth DS 1 EACH TABLET PO SCH ×2 (09:42→21:30)
[2019-06-15] MEDS: *HR* Metformin 500 MG TABLET PO SCH (09:42)
[2019-06-15] MEDS: Apixaban 5 MG TABLET PO SCH ×2 (09:42→21:20)
[2019-06-15] MEDS: Aspirin 81 MG TAB.CHEW PO SCH (09:42)
[2019-06-15] MEDS: Ranolazine 500 MG TAB.ER.12H PO SCH ×2 (09:42→21:19)
[2019-06-15] MEDS: Cholecalciferol (D-3) 1,000 UNIT (25MCG) TABLET PO SCH (09:43)
[2019-06-15] MEDS: Gabapentin 300 MG CAPSULE PO SCH ×3 (09:43→21:19)
[2019-06-15] MEDS ORDERED: Nicotine 7 MG PATCH.TD24 TD SCH (09:45)
[2019-06-15] MEDS ORDERED: clonazePAM 1 MG TABLET PO PRN (11:51)
[2019-06-15] MEDS ORDERED: Dextrose Gel 15 GM/37.5 ML TUBE PO PRN ×2 (12:12)
[2019-06-15] MEDS ORDERED: Acetaminophen 325 MG TABLET PO PRN (12:12)
[2019-06-15] MEDS ORDERED: tiZANidine 4 MG TABLET PO PRN (12:12)
[2019-06-15] MEDS ORDERED: *HR* Dextrose 50 % in Water (Syg) 50 ML SYRINGE IVP PRN (12:12)
[2019-06-15] MEDS ORDERED: Ondansetron ODT 4 MG TAB.RAPDIS SL PRN (12:12)
[2019-06-15] MEDS: clonazePAM 1 MG TABLET PO PRN ×2 (15:47→21:26)
[2019-06-15] MEDS: Ipratropium/Albuterol Neb 3 ML IH SCH ×2 (15:49→20:29)
[2019-06-16] MEDS: Azithromycin 500 MG in D5% in Water 250 ML IVPB SCH (01:08)
[2019-06-16] MEDS: MethylPREDNISolone 40 MG/ML VIAL IVP SCH ×3 (01:08→16:38)
[2019-06-16] MEDS: Ipratropium/Albuterol Neb 3 ML IH SCH ×6 (04:42→20:19)
[2019-06-16 06:05] LABS: Basophils % 0.1 %; Hematocrit 30.1 % (35.3-44.9); Hemoglobin 9.2 g/dL (11.5-15.4); Immature Granulocytes % 0.7 % (0-4); Lymphocytes # 0.5 K/mcL (0.6-4.6); Lymphocytes % 4.6 %; Mean Corpuscular HGB Conc 30.6 g/dL (31.6-35.5); Mean Corpuscular Hemoglobin 28.1 pg (28.0-33.3); Mean Platelet Volume 9.9 fL (9.4-12.4); Monocytes # 0.5 K/mcL (0.0-1.3); Monocytes % 4.4 %; Neutrophils # 9.5 K/mcL (1.6-8.9); Platelet Count 272 K/mcL (140-400); Red Blood Count 3.27 M/mcL (3.82-4.97); Red Cell Distribution Width 17.9 % (11.5-14.5); Segmented Neutrophils % 90.2 %; White Blood Count 10.5 K/mcL (4.3-11.1)
[2019-06-16 06:25] LABS: % Iron Saturation 9 % (15-50); Iron 30 mcg/dL (50-170); Transferrin 241 mg/dL (203-362)
[2019-06-16 06:28] LABS: Calcium 8.9 mg/dL (8.6-10.3); Magnesium 2.2 mg/dL (1.6-2.6); Potassium 5.4 mEq/L (3.5-5.1)
[2019-06-16 06:51] LABS: Folate 5.6 ng/mL (3.0-16.0)
[2019-06-16] MEDS ORDERED: cefTRIAXone 1,000 MG in Water for inj. (sterile) 10 ML IVP SCH (09:00)
[2019-06-16] MEDS: Insulin LISPRO 300 UNITS/3 ML VIAL SQ SCH ×4 (09:07→20:52)
[2019-06-16] MEDS: Aspirin 81 MG TAB.CHEW PO SCH (09:13)
[2019-06-16] MEDS: Sulfamethoxazole/Trimeth DS 1 EACH TABLET PO SCH ×2 (09:13→20:50)
[2019-06-16] MEDS: Apixaban 5 MG TABLET PO SCH ×2 (09:14→20:51)
[2019-06-16 09:15] LABS: Bilirubin,Urine Negative (Negative); Blood,Urine Large (Negative); Clarity,Urine Cloudy (Clear); Color,Urine Brown (Yellow); Glucose,Urine (UA) Normal (Normal); Ketones,Urine Negative (Negative); Leukocyte Esterase,Urine Negative (Negative); Nitrite,Urine Negative (Negative); Protein,Urine 100 mg/dL (Neg-Trace); Specific Gravity,Urine 1.025 (1.010-1.025); Urobilinogen,Urine Normal (Normal)
[2019-06-16] MEDS: Magnesium Oxide 400 MG TABLET PO SCH (09:16)
[2019-06-16] MEDS: Ranolazine 500 MG TAB.ER.12H PO SCH ×2 (09:16→20:50)
[2019-06-16] MEDS: Gabapentin 300 MG CAPSULE PO SCH ×3 (09:16→20:51)
[2019-06-16 09:17] LABS: Bacteria,Urine Few per hpf (None-Few); RBC,Urine TNTC per hpf (0-3); WBC,Urine Present per hpf (0-3)
[2019-06-16] MEDS: Cholecalciferol (D-3) 1,000 UNIT (25MCG) TABLET PO SCH (09:17)
[2019-06-16] MEDS: Nicotine 7 MG PATCH.TD24 TD SCH (09:20)
[2019-06-16] MEDS: Iron Sucrose Complex 200 MG in 0.9 % Sodium Chloride 100 ML IVPB SCH (09:43)
[2019-06-16] MEDS: clonazePAM 1 MG TABLET PO PRN (22:06)
[2019-06-17] MEDS: Ipratropium/Albuterol Neb 3 ML IH SCH ×7 (00:24→23:31)
[2019-06-17] MEDS: Azithromycin 500 MG in D5% in Water 250 ML IVPB SCH (02:43)
[2019-06-17 03:35] LABS: Basophils % 0.2 %; Hemoglobin 8.9 g/dL (11.5-15.4); Immature Granulocytes % 1.4 % (0-4); Lymphocytes # 0.6 K/mcL (0.6-4.6); Lymphocytes % 7.1 %; Mean Corpuscular HGB Conc 30.7 g/dL (31.6-35.5); Mean Corpuscular Hemoglobin 28.1 pg (28.0-33.3); Mean Corpuscular Volume 91.5 fL (83.0-100.0); Mean Platelet Volume 9.9 fL (9.4-12.4); Monocytes # 0.8 K/mcL (0.0-1.3); Monocytes % 8.9 %; Neutrophils # 7.3 K/mcL (1.6-8.9); Nucleated Red Blood Cells 0.2 /100 WBC (0); Platelet Count 234 K/mcL (140-400); Red Blood Count 3.17 M/mcL (3.82-4.97); Red Cell Distribution Width 17.8 % (11.5-14.5); Segmented Neutrophils % 82.4 %; White Blood Count 8.9 K/mcL (4.3-11.1)
[2019-06-17 03:54] LABS: Potassium 5.1 mEq/L (3.5-5.1)
[2019-06-17] MEDS: MethylPREDNISolone 40 MG/ML VIAL IVP SCH (04:44)
[2019-06-17] MEDS: Nicotine 7 MG PATCH.TD24 TD SCH (09:46)
[2019-06-17] MEDS: Apixaban 5 MG TABLET PO SCH ×2 (09:57→21:03)
[2019-06-17] MEDS: Sulfamethoxazole/Trimeth DS 1 EACH TABLET PO SCH ×2 (09:57→21:04)
[2019-06-17] MEDS: Aspirin 81 MG TAB.CHEW PO SCH (09:58)
[2019-06-17] MEDS: Gabapentin 300 MG CAPSULE PO SCH ×3 (09:58→21:04)
[2019-06-17] MEDS: Magnesium Oxide 400 MG TABLET PO SCH (09:58)
[2019-06-17] MEDS: Ranolazine 500 MG TAB.ER.12H PO SCH ×2 (09:59→21:02)
[2019-06-17] MEDS: Iron Sucrose Complex 200 MG in 0.9 % Sodium Chloride 100 ML IVPB SCH (09:59)
[2019-06-17] MEDS: Cholecalciferol (D-3) 1,000 UNIT (25MCG) TABLET PO SCH (09:59)
[2019-06-17] MEDS: Insulin LISPRO 300 UNITS/3 ML VIAL SQ SCH ×4 (10:00→21:02)
[2019-06-17] MEDS: clonazePAM 1 MG TABLET PO PRN ×2 (10:12→22:23)
[2019-06-17] MEDS ORDERED: cefTRIAXone 1,000 MG in Water for inj. (sterile) 10 ML IVP ONE (11:08)
[2019-06-18] MEDS: Ipratropium/Albuterol Neb 3 ML IH SCH ×3 (04:15→11:20)
[2019-06-18 06:14] LABS: Basophils % 0.1 %; Eosinophils # 0.1 K/mcL (0.0-0.6); Eosinophils % 0.8 %; Hematocrit 29.3 % (35.3-44.9); Hemoglobin 8.9 g/dL (11.5-15.4); Immature Granulocytes % 1.6 % (0-4); Lymphocytes # 2.4 K/mcL (0.6-4.6); Lymphocytes % 26.2 %; Mean Corpuscular HGB Conc 30.4 g/dL (31.6-35.5); Mean Corpuscular Hemoglobin 28.2 pg (28.0-33.3); Mean Corpuscular Volume 92.7 fL (83.0-100.0); Mean Platelet Volume 9.9 fL (9.4-12.4); Monocytes # 0.9 K/mcL (0.0-1.3); Monocytes % 9.6 %; Neutrophils # 5.7 K/mcL (1.6-8.9); Nucleated Red Blood Cells 1.1 /100 WBC (0); Platelet Count 245 K/mcL (140-400); Red Blood Count 3.16 M/mcL (3.82-4.97); Red Cell Distribution Width 17.8 % (11.5-14.5); Segmented Neutrophils % 61.7 %; White Blood Count 9.2 K/mcL (4.3-11.1)
[2019-06-18 06:26] LABS: Calcium 9.6 mg/dL (8.6-10.3); Potassium 5.4 mEq/L (3.5-5.1)
[2019-06-18 06:49] VITALS: BP 103/92
[2019-06-18] MEDS: Insulin LISPRO 300 UNITS/3 ML VIAL SQ SCH ×2 (09:29→11:27)
[2019-06-18] MEDS: Gabapentin 300 MG CAPSULE PO SCH (09:30)
[2019-06-18] MEDS: Cholecalciferol (D-3) 1,000 UNIT (25MCG) TABLET PO SCH (09:30)
[2019-06-18] MEDS: Ranolazine 500 MG TAB.ER.12H PO SCH (09:30)
[2019-06-18] MEDS: Apixaban 5 MG TABLET PO SCH (09:31)
[2019-06-18] MEDS: Aspirin 81 MG TAB.CHEW PO SCH (09:31)
[2019-06-18] MEDS: Magnesium Oxide 400 MG TABLET PO SCH (09:31)
[2019-06-18] MEDS: Sulfamethoxazole/Trimeth DS 1 EACH TABLET PO SCH (09:31)
[2019-06-18] MEDS: Nicotine 7 MG PATCH.TD24 TD SCH (09:32)
[2019-06-18] MEDS: Iron Sucrose Complex 200 MG in 0.9 % Sodium Chloride 100 ML IVPB SCH (09:37)
[2019-06-18] MEDS: clonazePAM 1 MG TABLET PO PRN (09:37)
== END 2019-06-18 13:58 | disposition home or self-care (01) | DRG 190 ==
LOC: 3BNU 18:34 → EMEROOARM 18:34 → 3BNU 22:28 → SUATTDRO 06-13 10:08 → ICNU 06-14 05:58 → 2NENU 06-15 12:28
PROVIDERS: ADMIT Internal Medicine Nephrology; ATTEND Internal Medicine

== ENCOUNTER 2019-06-21 14:01 | Observation (INO) ==
--- NOTE | 2019-06-21 14:06 | Emergency Department Note ---
Disposition Clinical Impression: Elevated brain natriuretic peptide (BNP) level Acute and chronic respiratory failure Qualifiers: Respiratory failure complication: unspecified whether with hypoxia or hypercapnia Qualified Code(s): J96.20 - Acute and chronic respiratory failure, unspecified whether with hypoxia or hypercapnia Anemia Qualifiers: Anemia type: unspecified type Qualified Code(s): D64.9 - Anemia, unspecified Disposition: Admitted As Inpatient Condition: Fair Time of Disposition: 21:15 General Adult HPI - General Stated complaint: CHRISTIANO Time Seen by Provider: 06/21/19 14:03 - Related Data Home Medications Medication Instructions Recorded Confirmed Ondansetron [Zofran ODT] 4 mg SL Q12H PRN 01/21/18 06/13/19 Metoprolol Tartrate [Lopressor] 25 mg PO BID 02/20/18 06/13/19 Dicyclomine [Bentyl] 20 mg PO BID 02/27/19 06/13/19 Losartan [Cozaar] 50 mg PO BID 02/27/19 06/13/19 Magnesium Oxide [Mag-Oxide 400 mg PO DAILY 02/27/19 06/13/19 Magnesium] Tizanidine HCl 2 mg PO TID PRN 02/27/19 06/13/19 Venlafaxine [Effexor] 75 mg PO BID 02/27/19 06/13/19 Albuterol Sulfate [Ventolin Hfa] 2 puff IH Q4H PRN 06/13/19 06/13/19 Ergocalciferol (VITAMIN D2) 50,000 unit PO TU 06/13/19 06/13/19 [Vitamin D2] Furosemide [Lasix] 40 mg PO DAILY 06/13/19 06/13/19 Montelukast [Singulair] 10 mg PO DAILY 06/13/19 06/13/19 cloNIDine HCl [CloNIDine HCl] 0.1 mg PO PRN PRN 06/13/19 06/13/19 Previous Rx's Medication Instructions Recorded Albuterol Neb [Proventil Neb] 2.5 mg IH Q4HR PRN #100 vial.neb 02/15/18 Aspirin 81 mg PO DAILY #30 tab.chew 02/15/18 Atorvastatin Calcium [Lipitor] 80 mg PO HS #30 tablet 02/15/18 Gabapentin [Neurontin] 600 mg PO TID #90 capsule 03/22/18 Isosorbide DInitrate [Isosorbide 30 mg PO BID #60 tablet 02/15/18 Dinitrate] Metformin HCl [Glucophage] 1,000 mg PO BID #60 tablet 02/15/18 Omeprazole [PriLOSEC] 40 mg PO BID #60 cap 02/15/18 Ranolazine [Ranexa] 500 mg PO BID 30 Days #60 02/15/18 tab.er.12h clonazePAM [Klonopin] 1 mg PO TID PRN 4 Days #12 tablet 02/24/18 Apixaban [Eliquis] 5 mg PO BID #60 tablet 03/04/19 Sulfamethoxazole/Trimeth DS 1 each PO BID #8 tablet 06/18/19 [Bactrim Ds] Allergies Allergy/AdvReac Type Severity Reaction Status Date / Time No Known Allergies Allergy Verified 06/13/19 18:15 Past Medical History - Past Medical History Medical history: Reports: arthritis, atrial fibrillation, COPD, coronary artery disease, DVT, hyperlipidemia, hypertension, migraine, myocardial infarction, peripheral artery disease Surgical history: Reports: cholecystectomy, hysterectomy Psychiatric history: Reports: anxiety, depression GRIP BOSS history: Reports: no GRIP BOSS history - Social History Smoking Status: Current every day smoker Smokeless Tobacco Status: No Alcohol use: Reports: none Drug use: Reports: none Course Vital Signs Temperature 98.6 F 06/21/19 14:04 Pulse Rate 117 06/21/19 14:04 Respiratory Rate 20 06/21/19 14:04 Blood Pressure 136/119 06/21/19 14:04 O2 Sat by Pulse Oximetry 97 06/21/19 14:04 Temperature 97.6 F 06/21/19 21:06 Pulse Rate 82 06/21/19 21:06 Respiratory Rate 18 06/21/19 21:06 Blood Pressure 132/95 06/21/19 21:06 O2 Sat by Pulse Oximetry 89 06/21/19 21:06 Oxygen Delivery Oxygen Delivery Nasal Cannula Medical Decision Making - Lab Data Result diagrams: 06/21/19 14:27 06/21/19 14:27 Lab Results 06/21/19 06/21/19 06/21/19 Range/Units 14:27 14:27 14:27 WBC 9.3 (4.3-11.1) K/mcL RBC 3.49 L (3.82-4.97) M/mcL Hgb 10.1 L (11.5-15.4) g/dL Hct 33.4 L (35.3-44.9) % MCV 95.7 (83.0-100.0) fL MCH 28.9 (28.0-33.3) pg MCHC 30.2 L (31.6-35.5) g/dL RDW 21.3 H (11.5-14.5) % Plt Count 292 (140-400) K/mcL MPV 9.7 (9.4-12.4) fL Immature Gran % 1.3 (0-4) % Seg Neutrophils % 76.4 % Lymphocytes % 12.5 % Monocytes % 7.7 % Eosinophils % 1.9 % Basophils % 0.2 % Neutrophils # 7.1 (1.6-8.9) K/mcL Lymphocytes # 1.2 (0.6-4.6) K/mcL Monocytes # 0.7 (0.0-1.3) K/mcL Eosinophils # 0.2 (0.0-0.6) K/mcL Basophils # 0.0 (0.0-0.2) K/mcL Nucleated RBCs/100 WBC 0.3 H (0) /100 WBC Sodium 139 (136-145) mEq/L Potassium 4.6 (3.5-5.1) mEq/L Chloride 104 (98-107) mEq/L Carbon Dioxide 28 (23-29) mEq/L BUN 28 H (8-23) mg/dL Creatinine 0.98 (0.60-1.20) mg/dL Est GFR ( Amer) > 60 (> 60) Est GFR (Non-Af Amer) 56 L (> 60) BUN/Creatinine Ratio 29 H (6-26) Glucose 130 H (70-105) mg/dL Calculated Osmolality 295 (280-300) Calcium 10.0 (8.6-10.3) mg/dL Troponin I 0.03 (< 0.04) ng/mL B-Natriuretic Peptide 3763 H (Less than 100) pg/mL Attestation Statement - Attestation Attestation: I reviewed the residents documentation and agree with the residents assessment and plan of care. I have personally had face to face time with the patient. (Brief History, Brief Exam, and MDM) I personally supervised and was present for the pelayo/critical portions of the following procedures completed by the resident: (add procedures performed here). Npso-of-lnky time provided Patient arrives by EMS complaining of dyspnea. She appears mildly dyspneic upon arrival. I evaluated this patient in conjunction with the resident physician Dr. Arevalo and attest to supervising his interpretation of the ECG
[2019-06-21] MEDS ORDERED: Ipratropium/Albuterol Neb 3 ML IH ONE (14:08)
[2019-06-21] MEDS ORDERED: methylPREDNISolone 125 MG/2 ML VIAL IVP ONE (14:08)
--- NOTE | 2019-06-21 14:11 | Emergency Department Note ---
Disposition Clinical Impression: Elevated brain natriuretic peptide (BNP) level Acute and chronic respiratory failure Qualifiers: Respiratory failure complication: unspecified whether with hypoxia or hypercapnia Qualified Code(s): J96.20 - Acute and chronic respiratory failure, unspecified whether with hypoxia or hypercapnia Anemia Qualifiers: Anemia type: unspecified type Qualified Code(s): D64.9 - Anemia, unspecified Disposition: Admitted As Inpatient Condition: Fair Time of Disposition: 16:08 General Adult HPI - General Stated complaint: CHRISTIANO Time Seen by Provider: 06/21/19 14:03 Source: patient Mode of arrival: ambulatory Limitations: no limitations Nursing Notes Reviewed: Yes Vital Signs Reviewed: Yes - History of Present Illness HPI Narrative: Patient is a 68-year-old emailed shortness of breath. Patient states that it started this morning. Patient states that she did have chest pain that lasted approximately 30 minutes. Patient states that she did take a baby aspirin. Patient states that she does have a history of COPD and a history of myocardial infarction with 5 stents that of been placed. Patient states that she usually wears 2-2-1/2 L of oxygen at home. EMS stated that he was having shortness of breath while on her home 2 L and he put her on 4 L in route. Patient states that her breathing is significantly improved and is ready feeling better. Patient states that she is not having any active chest pain. Patient denies any nausea with her chest pain. Patient did state that she became diaphoretic while she was having her period of 30 minutes chest pain. Patient states that she did try using her inhaler at home with minimal relief. Patient states that her inhaler was albuterol. Patient states that she was recently discharged from the hospital for COPD exacerbation. - Related Data Home Medications Medication Instructions Recorded Confirmed Ondansetron [Zofran ODT] 4 mg SL Q12H PRN 01/21/18 06/13/19 Metoprolol Tartrate [Lopressor] 25 mg PO BID 02/20/18 06/13/19 Dicyclomine [Bentyl] 20 mg PO BID 02/27/19 06/13/19 Losartan [Cozaar] 50 mg PO BID 02/27/19 06/13/19 Magnesium Oxide [Mag-Oxide 400 mg PO DAILY 02/27/19 06/13/19 Magnesium] Tizanidine HCl 2 mg PO TID PRN 02/27/19 06/13/19 Venlafaxine [Effexor] 75 mg PO BID 02/27/19 06/13/19 Albuterol Sulfate [Ventolin Hfa] 2 puff IH Q4H PRN 06/13/19 06/13/19 Ergocalciferol (VITAMIN D2) 50,000 unit PO TU 06/13/19 06/13/19 [Vitamin D2] Furosemide [Lasix] 40 mg PO DAILY 06/13/19 06/13/19 Montelukast [Singulair] 10 mg PO DAILY 06/13/19 06/13/19 cloNIDine HCl [CloNIDine HCl] 0.1 mg PO PRN PRN 06/13/19 06/13/19 Previous Rx's Medication Instructions Recorded Albuterol Neb [Proventil Neb] 2.5 mg IH Q4HR PRN #100 vial.neb 02/15/18 Aspirin 81 mg PO DAILY #30 tab.chew 02/15/18 Atorvastatin Calcium [Lipitor] 80 mg PO HS #30 tablet 02/15/18 Gabapentin [Neurontin] 600 mg PO TID #90 capsule 02/15/18 Isosorbide DInitrate [Isosorbide 30 mg PO BID #60 tablet 02/15/18 Dinitrate] Metformin HCl [Glucophage] 1,000 mg PO BID #60 tablet 02/15/18 Omeprazole [PriLOSEC] 40 mg PO BID #60 cap 02/15/18 Ranolazine [Ranexa] 500 mg PO BID 30 Days #60 02/15/18 tab.er.12h clonazePAM [Klonopin] 1 mg PO TID PRN 4 Days #12 tablet 02/24/18 Apixaban [Eliquis] 5 mg PO BID #60 tablet 03/04/19 Sulfamethoxazole/Trimeth DS 1 each PO BID #8 tablet 06/18/19 [Bactrim Ds] Allergies Allergy/AdvReac Type Severity Reaction Status Date / Time No Known Allergies Allergy Verified 06/13/19 18:15 All systems ED: reviewed and negative except as stated. Constitutional: Denies: fever Cardiovascular: Reports: chest pain Respiratory: Reports: dyspnea Gastrointestinal: Denies: abdominal pain, nausea, vomiting Neurological: Denies: weakness, numbness, paresthesias Past Medical History - Past Medical History Medical history: Reports: arthritis, atrial fibrillation, COPD, coronary artery disease, DVT, hyperlipidemia, hypertension, migraine, myocardial infarction, peripheral artery disease Surgical history: Reports: cholecystectomy, hysterectomy Psychiatric history: Reports: anxiety, depression HOSPICE/HOME HEALTH AIDE history: Reports: no HOSPICE/HOME HEALTH AIDE history - Social History Smoking Status: Current every day smoker Smokeless Tobacco Status: No Alcohol use: Reports: none Drug use: Reports: none Physical Exam - General Limitations: no limitations General appearance: alert, in no apparent distress - Head Head exam: atraumatic, normocephalic - Eye Eye exam: Present: normal appearance, EOMI - Neck Neck exam: Present: normal inspection, full ROM, trachea midline - Respiratory Respiratory exam: Present: wheezes. Absent: normal lung sounds bilaterally, respiratory distress - Cardiovascular Cardiovascular exam: Present: regular rate, normal rhythm, normal heart sounds, +S1, +S2 - Abdominal Exam Abdominal exam: Present: soft, Non-Tender, normal bowel sounds - Extremities Exam Extremities exam: Present: other (1-2+ pitting in Edema bilateral lower extremity.) - Neurological Exam Neurological exam: Present: alert, oriented X3 - Psychiatric Psychiatric exam: Present: normal affect, normal mood - Skin Skin exam: Present: warm, dry, intact Course Vital Signs Temperature 98.6 F 06/21/19 14:04 Pulse Rate 117 06/21/19 14:04 Respiratory Rate 20 06/21/19 14:04 Blood Pressure 136/119 06/21/19 14:04 O2 Sat by Pulse Oximetry 97 06/21/19 14:04 Temperature 98.6 F 06/21/19 14:04 Pulse Rate 100 06/21/19 15:11 Respiratory Rate 16 06/21/19 15:11 Blood Pressure 141/99 06/21/19 15:11 O2 Sat by Pulse Oximetry 16 06/21/19 15:11 Oxygen Delivery Oxygen Delivery Nasal Cannula Medical Decision Making - [facility] Narrative Medical decision making narrative: Due the patient presenting to the emergency department with reports of chest pain and shortness of breath we will obtain basic laboratory testing, chest x- ray and EKG. Patient will likely require admission to the hospital for further evaluation and management of her COPD vs CHF. Patient's chest x-ray shows vascular congestion. She does have peripheral edema on exam and her BNP is greater than 3700s. This is likely secondary to the patient having worsening of her congestive heart failure. Patient will require admission to the hospital. She has increased oxygen requirement up to 4 L which is above her usual 2-2-1/2 L of nasal cannula oxygen. Patient had recently been admitted and discharged on the . The hospitalists Dr. Ma was made aware that this is a recent discharge. She is accepted the patient in admission. Patient be admitted to the hospitalist service for further evaluation and management of her acute on chronic respiratory failure likely secondary to CHF. - Medical Records Medical records reviewed: Yes I reviewed the patient's medical records. - Lab Data Lab results reviewed: Yes I reviewed the patient's lab results. Result diagrams: 06/21/19 14:27 06/21/19 14:27 Lab Results 06/21/19 06/21/19 06/21/19 Range/Units 14:27 14:27 14:27 WBC 9.3 (4.3-11.1) K/mcL RBC 3.49 L (3.82-4.97) M/mcL Hgb 10.1 L (11.5-15.4) g/dL Hct 33.4 L (35.3-44.9) % MCV 95.7 (83.0-100.0) fL MCH 28.9 (28.0-33.3) pg MCHC 30.2 L (31.6-35.5) g/dL RDW 21.3 H (11.5-14.5) % Plt Count 292 (140-400) K/mcL MPV 9.7 (9.4-12.4) fL Immature Gran % 1.3 (0-4) % Seg Neutrophils % 76.4 % Lymphocytes % 12.5 % Monocytes % 7.7 % Eosinophils % 1.9 % Basophils % 0.2 % Neutrophils # 7.1 (1.6-8.9) K/mcL Lymphocytes # 1.2 (0.6-4.6) K/mcL Monocytes # 0.7 (0.0-1.3) K/mcL Eosinophils # 0.2 (0.0-0.6) K/mcL Basophils # 0.0 (0.0-0.2) K/mcL Nucleated RBCs/100 WBC 0.3 H (0) /100 WBC Sodium 139 (136-145) mEq/L Potassium 4.6 (3.5-5.1) mEq/L Chloride 104 (98-107) mEq/L Carbon Dioxide 28 (23-29) mEq/L BUN 28 H (8-23) mg/dL Creatinine 0.98 (0.60-1.20) mg/dL Est GFR ( Amer) > 60 (> 60) Est GFR (Non-Af Amer) 56 L (> 60) BUN/Creatinine Ratio 29 H (6-26) Glucose 130 H (70-105) mg/dL Calculated Osmolality 295 (280-300) Calcium 10.0 (8.6-10.3) mg/dL Troponin I 0.03 (< 0.04) ng/mL B-Natriuretic Peptide 3763 H (Less than 100) pg/mL - Radiology Data Radiology results reviewed: Yes I reviewed the patient's radiology results. Chest X-Ray 06/21/19 14:08 IMPRESSION: [id number] pulmonary vascular congestion increased from 06/12/2019. Small bilateral pleural effusions. D/ / Juwan Perez MD / Juwan Perez MD Interpreting Provider: Juwan Perez MD - EKG Data EKG #1 EKG attestation: Yes I reviewed and interpreted this EKG. EKG results narrative: EKG shows atrial fibrillation at a rate of 104, QRS duration 118, QTC of 454. There is no evidence of STEMI on EKG. This is compared to previous EKG on 06/12/19 which shows atrial fibrillation at a rate of 100.
[2019-06-21 14:48] LABS: Hematocrit 33.4 % (35.3-44.9); Hemoglobin 10.1 g/dL (11.5-15.4); Immature Granulocytes % 1.3 % (0-4); Lymphocytes % 12.5 %; Mean Corpuscular HGB Conc 30.2 g/dL (31.6-35.5); Mean Corpuscular Hemoglobin 28.9 pg (28.0-33.3); Mean Corpuscular Volume 95.7 fL (83.0-100.0); Mean Platelet Volume 9.7 fL (9.4-12.4); Platelet Count 292 K/mcL (140-400); Red Blood Count 3.49 M/mcL (3.82-4.97); Red Cell Distribution Width 21.3 % (11.5-14.5); Segmented Neutrophils % 76.4 %; White Blood Count 9.3 K/mcL (4.3-11.1)
[2019-06-21 14:49] LABS: Basophils % 0.2 %; Eosinophils # 0.2 K/mcL (0.0-0.6); Eosinophils % 1.9 %; Lymphocytes # 1.2 K/mcL (0.6-4.6); Monocytes # 0.7 K/mcL (0.0-1.3); Monocytes % 7.7 %; Neutrophils # 7.1 K/mcL (1.6-8.9); Nucleated Red Blood Cells 0.3 /100 WBC (0)
[2019-06-21 15:01] LABS: BUN/Creatinine Ratio 29 (6-26); Blood Urea Nitrogen 28 mg/dL (8-23); Carbon Dioxide 28 mEq/L (23-29); Chloride 104 mEq/L (98-107); Glucose 130 mg/dL (70-105); Osmolality,Calculated 295 (280-300); Potassium 4.6 mEq/L (3.5-5.1); Sodium 139 mEq/L (136-145); Troponin I 0.03 ng/mL (< 0.04); eGFR For African Americans > 60 (> 60); eGFR For Non-African Americans 56 (> 60)
--- NOTE | 2019-06-21 17:07 | Electrocardiograph Report ---
[employer] [employer] Test Date: 2019-06-21 Pat Name: Ilene Costa Department: EXAM9 Room: 2NE20 Gender: F Mental Health Nurse Practitioner: : [id number] Requested By: Dawit Arevalo Order Number: [id number] Reading MD: Chaim Dominguez Measurements Intervals [place] Rate: 104 P: [place]: QRS: 139 QRSD: 118 T: -18 QT: 345 QTc: 454 Interpretive Statements Atrial fibrillation Left posterior fascicular block Borderline repolarization abnormality Electronically Signed On 06-21-2019 17:04:56 EDT by Chaim Dominguez
--- NOTE | 2019-06-21 17:30 | Internal Med History&Physical ---
Date of Encounter: 06/21/19 Time of Encounter: 17:14 Internal Medicine - H&P: HPI Chief complaint: Shortness of Breath Admitted From: Home Plans for Post Hospital Care: Home History of present illness: Ms. Costa is a 68 year old female with a PMH of CHF with EF of 55%, COPD on 3 L home oxygen, diabetes, atrial fibrillation, hypertension, and CAD with stents presents with 2 days of worsening shortness of breath. Patient was discharged from the hospital on 06/18 after a 7 day stay where she was treated for a COPD exacerbation and UTI. Patient was sent home with Bactrim for 4 days to treat UTI. Patient states that over the past 2 days she has had increasing shortness of breath without a cough, leg swelling, and weakness. Patient is also complaining of some heavy chest pain that is worse with a deep breath. Patient states she has had her medications and is taking them except for this morning when she missed her doses. Patient denies dysuria, hematuria, foul-smelling urine, cough, change in sputum, fever, chills, or palpitations. In the ED a CBC, BMP, BNP, and chest x-ray. CBC showed anemia which is chronic from past visits and is actually improved. BMP with elevated BUN/creatinine at 28 which is also improved from previous visit. BNP of 3763 slightly increased from previous visit which was 3632. Chest x-ray showed mild to moderate pulmonary vascular congestion increased from 06/12 and small bilateral pleural effusions. Past Med Surg Social Fam HX - Past Medical History Medical history: arthritis, atrial fibrillation, COPD, coronary artery disease, DVT, hyperlipidemia, hypertension, migraine, myocardial infarction, peripheral artery disease Additional medical history: ND with angioplasty, cardiac stents. PE Psychiatric history: anxiety, depression - Past Surgical History Surgical History: cholecystectomy, hysterectomy Additional surgical history: right knee replacement. 4 cardiac stents. 1 renal stent - Social History Smoking Status: Current every day smoker Smokeless Tobacco Status: No Alcohol use: none Drug use: none - Family History Mother Adopted: No Living Status: Hx Family Cardiac Disorders: Yes Hx Family Respiratory Disorders: Yes Hx Family Cancer: No Hx Family GI Disorders: No Hx Family Endocrine Disorder: Yes Hx Family Neuromuscular Disorders: No Hx Family Neurologic Disorders: No Hx Family HEENT Disorders: No Hx Family Autoimmune Disorders: No Father Adopted: No Living Status: Hx Family Cardiac Disorders: Yes Hx Family Respiratory Disorders: No Hx Family Cancer: Yes (Prostate) Hx Family GI Disorders: No Hx Family Endocrine Disorder: Yes (DM) Hx Family Neuromuscular Disorders: No Hx Family Neurologic Disorders: No Hx Family HEENT Disorders: No Hx Family Autoimmune Disorders: No Internal Medicine - H&P: Meds Ondansetron [Zofran ODT] 4 mg SL Q12H PRN 01/21/18 [History] Albuterol Neb [Proventil Neb] 2.5 mg IH Q4HR PRN #100 vial.neb 02/15/18 [Rx] Aspirin 81 mg PO DAILY #30 tab.chew 02/15/18 [Rx] Atorvastatin Calcium [Lipitor] 80 mg PO HS #30 tablet 02/15/18 [Rx] Gabapentin [Neurontin] 600 mg PO TID #90 capsule 02/15/18 [Rx] Isosorbide DInitrate [Isosorbide Dinitrate] 30 mg PO BID #60 tablet 02/15/18 [Rx] Metformin HCl [Glucophage] 1,000 mg PO BID #60 tablet 02/15/18 [Rx] Omeprazole [PriLOSEC] 40 mg PO BID #60 cap 02/15/18 [Rx] Ranolazine [Ranexa] 500 mg PO BID 30 Days #60 tab.er.12h 02/15/18 [Rx] Metoprolol Tartrate [Lopressor] 25 mg PO BID 02/20/18 [History] clonazePAM [Klonopin] 1 mg PO TID PRN 4 Days #12 tablet 02/24/18 [Rx] Dicyclomine [Bentyl] 20 mg PO BID 02/27/19 [History] Losartan [Cozaar] 50 mg PO BID 02/27/19 [History] Magnesium Oxide [Mag-Oxide Magnesium] 400 mg PO DAILY 02/27/19 [History] Tizanidine HCl 2 mg PO TID PRN 02/27/19 [History] Venlafaxine [Effexor] 75 mg PO BID 02/27/19 [History] Apixaban [Eliquis] 5 mg PO BID #60 tablet 03/04/19 [Rx] Albuterol Sulfate [Ventolin Hfa] 2 puff IH Q4H PRN 06/13/19 [History] Ergocalciferol (VITAMIN D2) [Vitamin D2] 50,000 unit PO TU 06/13/19 [History] Furosemide [Lasix] 40 mg PO DAILY 06/13/19 [History] Montelukast [Singulair] 10 mg PO DAILY 06/13/19 [History] cloNIDine HCl [CloNIDine HCl] 0.1 mg PO PRN PRN 06/13/19 [History] Sulfamethoxazole/Trimeth DS [Bactrim Ds] 1 each PO BID #8 tablet 06/18/19 [Rx] Allergy/AdvReac Type Severity Reaction Status Date / Time No Known Allergies Allergy Verified 06/13/19 18:15 All Systems PM: A 10-system review of systems was performed and is negative for pertinent findings except as documented above in the HPI. - Constitutional Constitutional: weakness, no fever(s) - EENT Eyes: no blurry vision, no change in vision, no loss of vision Ears: no decreased hearing, no ear pain Nose, mouth and throat: no epistaxis, no hoarseness, no sore throat, no throat swelling - Cardiovascular Cardiovascular ROS IM: chest pain, dyspnea, edema, no palpitations - Respiratory Respiratory: dyspnea, no cough, no excessive phlegm production, no change in phlegm color - Gastrointestinal Gastrointestinal: abdominal pain, no change in bowel habits, no coffee ground emesis, no diarrhea, no hematochezia, no nausea, no vomiting - Genitourinary Genitourinary: no difficulty urinating, no dysuria, no hematuria, no urinary incontinence - Musculoskeletal Musculoskeletal ROS IM: no muscle weakness, no numbness - Neurological Neurological ROS: weakness, no loss of vision, no numbness, no paresthesias - Endocrine Endocrine IM: fatigue, polyuria - Constitutional Vitals: Temp Pulse Resp BP Pulse Ox 98.6 F 100 16 141/99 16 06/21/19 14:04 06/21/19 15:11 06/21/19 15:11 06/21/19 15:11 06/21/19 15:11 General appearance: Present: A&O X 3, no acute distress, answers questions appropriately Exam: alert - Head Head exam: Present: atraumatic, normocephalic - Eye Eye exam: Present: EOMI. Absent: scleral icterus - ENT ENT exam: Present: mucous membranes moist, normal exam - Neck Neck exam general surgery: Present: full ROM, supple, trachea midline - Respiratory Respiratory exam: Present: CTAB. Absent: rhonchi, stridor, wheezes, tachypnea - Cardiovascular Cardiovascular exam: Present: irregular rhythm, +S1, +S2, tachycardia. Absent: diastolic murmur, systolic murmur - GI/Abdominal GI/Abdominal exam: Present: normal bowel sounds, soft. Absent: pulsatile mass - Extremities Exam Extremities exam: Present: full ROM, pedal edema. Absent: cyanotic - Neurological Exam Neurological exam: Present: alert, oriented X3. Absent: facial droop - Psychiatric Psychiatric exam: Present: normal affect, normal mood - Skin Skin exam: Present: warm. Absent: cyanosis Internal Med - H&P Results - Labs CBC & Chem 7: 06/21/19 14:27 06/21/19 14:27 Labs: Short CBC 06/21/19 Range/Units 14:27 WBC 9.3 (4.3-11.1) K/mcL Hgb 10.1 L (11.5-15.4) g/dL Hct 33.4 L (35.3-44.9) % Plt Count 292 (140-400) K/mcL Neutrophils # 7.1 (1.6-8.9) K/mcL BMP 06/21/19 14:27 Sodium 139 Potassium 4.6 Chloride 104 Carbon Dioxide 28 BUN 28 H Creatinine 0.98 Glucose 130 H Calcium 10.0 Cardiac Enzymes 06/21/19 Range/Units 14:27 Troponin I 0.03 (< 0.04) ng/mL - Impressions ITS Impressions Chest X-Ray 06/21/19 14:08 IMPRESSION: [id number] pulmonary vascular congestion increased from 06/12/2019. Small bilateral pleural effusions. D/ / Juwan Perez MD / Juwan Perez MD Interpreting Provider: Juwan Perez MD - Assessment and Plan (1) CHF exacerbation Current Visit: No Status: Acute Assessment and plan: Pt with known h/o Diastolic CHF with an EF of 55% documented on Echo from 02/28/19 Came in with increasing SOB with 1+ pitting edema to the bilateral LE after missing lasix dose CXR 06/21 with mild to moderate pulmonary vascular congestion increased from 06/12/19 and small bilat pleural effusions. BNP on admission of 3763 up from previous on 06/12 of 3632 Pt on Metoprolol 25 mg BID, lasix 40 mg BID, and Isosorbide dinitrate 30 mg BID -Continue home metoprolol and isosorbide dinitrate -Start pt on 40 mg IV lasix BID -Strict monitoring of I&Os and daily weights -1.5 L fluid restriction. Qualifiers: Heart failure type: diastolic Qualified Code(s): I50.33 - Acute on chronic diastolic (congestive) heart failure Code(s): I50.9 - Heart failure, unspecified (2) Atrial fibrillation with RVR Current Visit: Yes Status: Acute Assessment and plan: Pt with h/o atrial fibrillation which was noted on EKG 06/21 Rate elevated btw 110-150, could be due to recent steroid therapy On metoprolol, Eliquis, and Aspirin at home -Metoprolol 5 mg q6h PRN for elevated HR -Continue home medications and cardiac monitoring (3) COPD (chronic obstructive pulmonary disease) Current Visit: No Status: Chronic Assessment and plan: On 3 L of O2 at home with O2 saturation in ED of over 90% on 2 liter via NC Pt was just d/c from hospital on 06/18 following a 7 day stay for a COPD exacerbation which she had steroids and azithromycin to treat Pt denies wheezing, cough, increasing sputum production, or changes in sputum color on this visit -Continue home medications and O2 supplementation Qualifiers: COPD type: emphysema Emphysema type: centrilobular Qualified Code(s): J43.2 - Centrilobular emphysema (4) Diabetes mellitus Current Visit: No Status: Chronic Assessment and plan: Pt last A1C of 6.5 on metformin at home BG of 130 -Will place pt on low dose SSI and Diabetic diet and monitor for changes Qualifiers: Diabetes mellitus type: type 2 Diabetes mellitus mcc insulin use: without ocean transportation intermediary use Diabetes mellitus complication status: without complication Qualified Code(s): E11.9 - Type 2 diabetes mellitus without complications (5) Anemia Current Visit: Yes Status: Chronic Assessment and plan: H&H of 10.1 and 33.4 improved from previous labs on 06/18 of 8.9 and 29.4 -Continue to monitor for changes. Qualifiers: Anemia type: unspecified type Qualified Code(s): D64.9 - Anemia, unspecified (6) HTN (hypertension) Current Visit: No Status: Chronic Assessment and plan: Currently controlled on Metoprolol, Losartan, and Lasix -Will continue home medications. Qualifiers: Hypertension type: essential hypertension Qualified Code(s): I10 - Essent ial (primary) hypertension (7) DVT prophylaxis Current Visit: No Status: Acute Assessment and plan: On Eliquis - Time Spent With Patient Total time spent is greater than 50% in coordination of care (as documented) at patient's floor/unit and/or counseling patient:
[2019-06-21] MEDS ORDERED: Ondansetron ODT 4 MG TAB.RAPDIS SL PRN (17:34)
[2019-06-21] MEDS ORDERED: Naloxone 0.4 MG/ML INJ IVP PRN (17:34)
[2019-06-21] MEDS ORDERED: clonazePAM 1 MG TABLET PO PRN (17:39)
[2019-06-21] MEDS ORDERED: Albuterol 2.5 MG/3 ML NEBULIZER IH PRN (17:39)
[2019-06-21] MEDS ORDERED: D5% in Water 1,000 ML IVC PRN (17:48)
[2019-06-21] MEDS ORDERED: Dextrose Gel 15 GM/37.5 ML TUBE PO PRN ×2 (17:48)
[2019-06-21] MEDS ORDERED: *HR* Dextrose 50 % in Water (Syg) 50 ML SYRINGE IVP PRN (17:48)
[2019-06-21] MEDS ORDERED: *HR* Metoprolol 5 MG/5 ML VIAL IVP PRN (18:36)
[2019-06-21] MEDS: Aspirin 81 MG TAB.CHEW PO SCH (19:00)
[2019-06-21] MEDS: Insulin LISPRO 300 UNITS/3 ML VIAL SQ SCH ×2 (19:00→21:01)
[2019-06-21] MEDS: Apixaban 5 MG TABLET PO SCH (20:47)
[2019-06-21] MEDS: Gabapentin 300 MG CAPSULE PO SCH (20:48)
[2019-06-21] MEDS: Furosemide 40 MG/4 ML VIAL IVP SCH (20:48)
[2019-06-21] MEDS: Ranolazine 500 MG TAB.ER.12H PO SCH (20:48)
[2019-06-21] MEDS ORDERED: Sulfamethoxazole/Trimeth DS 1 EACH TABLET PO SCH (21:00)
[2019-06-21] MEDS ORDERED: clonazePAM 0.5 MG TABLET PO ONE (22:32)
[2019-06-22 02:38] LABS: Hematocrit 32.2 % (35.3-44.9); Hemoglobin 9.7 g/dL (11.5-15.4); Mean Corpuscular HGB Conc 30.1 g/dL (31.6-35.5); Mean Corpuscular Volume 96.4 fL (83.0-100.0); Mean Platelet Volume 10.1 fL (9.4-12.4); Platelet Count 245 K/mcL (140-400); Red Blood Count 3.34 M/mcL (3.82-4.97); Red Cell Distribution Width 21.7 % (11.5-14.5); White Blood Count 7.7 K/mcL (4.3-11.1)
[2019-06-22 02:57] LABS: Calcium 9.7 mg/dL (8.6-10.3); Potassium 4.6 mEq/L (3.5-5.1)
[2019-06-22] MEDS: Insulin LISPRO 300 UNITS/3 ML VIAL SQ SCH ×4 (07:41→22:11)
[2019-06-22] MEDS: Apixaban 5 MG TABLET PO SCH ×2 (07:48→21:00)
[2019-06-22] MEDS: Gabapentin 300 MG CAPSULE PO SCH ×3 (07:49→21:00)
[2019-06-22] MEDS: Ranolazine 500 MG TAB.ER.12H PO SCH ×2 (07:49→21:00)
[2019-06-22] MEDS: Aspirin 81 MG TAB.CHEW PO SCH (07:49)
[2019-06-22] MEDS: Furosemide 40 MG/4 ML VIAL IVP SCH ×2 (07:49→16:22)
--- NOTE | 2019-06-22 13:57 | Internal Med Progress Note ---
Hospitalist Progress Note - Encounter Date of Encounter: 06/22/19 Time of Encounter: 13:49 - Subjective Interval History: Ms. Costa was seen at bedside this morning. She was resting comfortably sitting up in bed. Vitals were reviewed and she remained afebrile and normotensive overnight. Denied fever, chills, nausea, shortness of breath or chest pain. - Exam Vitals: Temp Pulse Resp BP Pulse Ox 97.6 F 99 19 128/99 94 06/22/19 07:31 06/22/19 07:31 06/22/19 07:31 06/22/19 07:06/22/19 07:31 Exam: Gen: Vitals noted. No acute distress. Appears comfortable. Eyes: anicteric sclerae, moist conjunctivae; no lid-lag HENT: Atraumatic; oropharynx clear with moist mucous membranes and no mucosal ulcerations Neck: Trachea midline; supple, no thyromegaly or lymphadenopathy Cardiac:Regular rate with irregular rhythm, no murmur, +S1/S2. No JVD noted. Pulmonary: CTA bilaterally, no wheezes, rales or rhonchi, equal chest expansion Abdomen: soft, nontender, no guarding. MSK: ROM intact, trace pitting edema right greater than left Skin: Normal temperature, turgor; no rash, ulcers or subcutaneous nodules Neuro: moves all extremities, no focal deficits. Psych: Appropriate mood and behavior. A&Ox3 - Assessment and Plan (1) CHF exacerbation Current Visit: No Status: Acute Assessment and Plan: History of Diastolic CHF with an EF of 55%, TTE 02/28/19 Presented with worsening dypnea, improving today CXR 06/21 with mild to moderate pulmonary vascular congestion increased from 06/12/19 BNP on admission of 3763, previously on 06/12 of 3632 Continues to have right lower extremity edema -Continue home metoprolol and isosorbide dinitrate -Start pt on 40 mg IV lasix BID -Strict intake and output -1.5 L fluid restriction. -Switch to oral lasix 06/23/19 (2) Atrial fibrillation with RVR Current Visit: No Status: Acute Assessment and Plan: Pt with h/o atrial fibrillation which was noted on EKG 06/21 Resented with heart rate in the 120s Rate controlled today, heart rate 70-90s On metoprolol, Eliquis, and Aspirin at home -Continue home metoprolol 25 mg BID -Metoprolol 5 mg IVP Q6HR -Continue eliquis -Continue cardiac monitoring (3) COPD (chronic obstructive pulmonary disease) Current Visit: No Status: Chronic Assessment and Plan: Continue supplemental nasal canula to continue saturatin above 88% Recently treated for 7 days for COPD exacerbation with steroids and azithromycin Pt denies wheezing, cough, increasing sputum production, or changes in sputum color on this visit -Continue home medications and O2 supplementation (4) HTN (hypertension) Current Visit: No Status: Chronic Assessment and Plan: Currently controlled on Metoprolol, Losartan, and Lasix -Will continue home medications. (5) Diabetes mellitus Current Visit: No Status: Chronic Assessment and Plan: History of diabetes, on metformin at home last A1c 6.5 on 06/14/19 Glucose 136 this morning and 177 this afternoon -Continue diabetic diet, will increase to medium dose sliding scale (6) Anemia Current Visit: Yes Status: Chronic Assessment and Plan: History of chronic anemia hemoglobin 9.7, improved from previous labs on 06/18 of 8.9 and 29.4 -Continue to monitor for changes -Ordered iron profile and ferritin -Repeat CBC in the morning DVT Prophylaxis: On eliquis - Time Spent with Patient Total time spent is greater than 50% in coordination of care (as documented) at patient's floor/unit and/or counseling patient: Internal Medicine: Result - Labs CBC & Chem 7: 06/22/19 02:18 06/22/19 02:18 Labs: Short CBC 06/21/19 06/22/19 Range/Units 14:27 02:18 WBC 9.3 7.7 (4.3-11.1) K/mcL Hgb 10.1 L 9.7 L (11.5-15.4) g/dL Hct 33.4 L 32.2 L (35.3-44.9) % Plt Count 292 245 (140-400) K/mcL Neutrophils # 7.1 (1.6-8.9) K/mcL BMP 06/21/19 06/22/19 14:27 02:18 Sodium 139 138 Potassium 4.6 4.6 Chloride 104 103 Carbon Dioxide 28 25 BUN 28 H 32 H Creatinine 0.98 1.19 Glucose 130 H 218 H Calcium 10.0 9.7 Cardiac Enzymes 06/21/19 06/21/19 06/22/19 Range/Units 14:27 20:26 02:18 Troponin I 0.03 0.03 0.03 (< 0.04) ng/mL - Impressions Impressions Chest X-Ray 06/21/19 14:08 IMPRESSION: [id number] pulmonary vascular congestion increased from 06/12/2019. Small bilateral pleural effusions. D/ / Juwan Perez MD / Juwan Perez MD Interpreting Provider: Juwan Perez MD Consult Discharge Plan - Plan (1) CHF exacerbation Qualifiers: Heart failure type: diastolic Qualified Code(s): I50.33 - Acute on chronic diastolic (congestive) heart failure (3) COPD (chronic obstructive pulmonary disease) Qualifiers: COPD type: emphysema Emphysema type: centrilobular Qualified Code(s): J43.2 - Centrilobular emphysema (4) HTN (hypertension) Qualifiers: Hypertension type: essential hypertension Qualified Code(s): I10 - Essential (primary) hypertension (5) Diabetes mellitus Qualifiers: Diabetes mellitus type: type 2 Diabetes mellitus prison insulin use: without prison use Diabetes mellitus complication status: without complication Qualified Code(s): E11.9 - Type 2 diabetes mellitus without complications (6) Anemia Qualifiers: Anemia type: unspecified type Qualified Code(s): D64.9 - Anemia, unspecified
[2019-06-22] MEDS: clonazePAM 1 MG TABLET PO PRN (19:19)
[2019-06-23 01:36] LABS: Calcium 9.5 mg/dL (8.6-10.3); Potassium 4.3 mEq/L (3.5-5.1)
[2019-06-23] MEDS: clonazePAM 1 MG TABLET PO PRN ×2 (03:14→17:03)
[2019-06-23] MEDS: Ranolazine 500 MG TAB.ER.12H PO SCH (07:37)
[2019-06-23] MEDS: Gabapentin 300 MG CAPSULE PO SCH ×2 (07:37→16:27)
[2019-06-23] MEDS: Aspirin 81 MG TAB.CHEW PO SCH (07:38)
[2019-06-23] MEDS: Apixaban 5 MG TABLET PO SCH (07:38)
[2019-06-23] MEDS: Furosemide 40 MG TABLET PO SCH ×2 (07:38→17:09)
[2019-06-23] MEDS: Insulin LISPRO 300 UNITS/3 ML VIAL SQ SCH ×3 (08:13→17:09)
--- NOTE | 2019-06-23 08:36 | Discharge Summary ---
- NOTES TO OUTPATIENT PROVIDER Notes to Outpatient Provider: Presented with shortness of breath. Due to elevated blood pressure added 5 mg amlodipine. Decreased clonazepam to 0.5 mg TID from 1 mg and decreased Gabapentin from 600 mg TID to 300 mg. Date of Encounter: 06/23/19 Time of Encounter: 10:22 - Discharge Diagnosis (1) CHF exacerbation Priority: Primary Status: Acute Qualifiers: Heart failure type: diastolic Qualified Code(s): I50.33 - Acute on chronic diastolic (congestive) heart failure (2) Atrial fibrillation with RVR Priority: Secondary Status: Acute (3) COPD (chronic obstructive pulmonary disease) Priority: Secondary Status: Chronic Qualifiers: COPD type: emphysema Emphysema type: centrilobular Qualified Code(s): J43.2 - Centrilobular emphysema (4) HTN (hypertension) Priority: Secondary Status: Chronic Qualifiers: Hypertension type: essential hypertension Qualified Code(s): I10 - Essential (primary) hypertension (5) Diabetes mellitus Priority: Secondary Status: Chronic Qualifiers: Diabetes mellitus type: type 2 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 Costa is a 68 year old female who presented to the ED on 06/21/19 complaining shortness of breath. Was noted to be in Afib with RVR. After restarting her home medications her rate has been controlled. She had recently been discharged from the hospital on 06/18/19. At presentation she reported that she had missed her home medications on the day of arrival. In the ED her BNP was noted to be 3763 which was slightly increased from previous visit of 3632. Chest x-ray showed pulmonary vascular congestion. During her stay here she received IV Lasix with good urinary output. Tolerating oral Lasix this morning. Additionally she was noted to have continued elevated blood pressure which was added 5 mg amlodipine. Discussed this with the patient and asked her to monitor blood pressure at home. Initially decreased her home dose of clonazepam and gabapentin due to history of falls at home. At home on 3 liters of oxygen and today tolerating 3 liters with oxygen saturation of 98%. Discharge discussed with: patient - Time Spent with Patient Total time spent providing and/or coordinating discharge services: - Discharge Medications Prescriptions: New Amlodipine Besylate 5 mg PO DAILY 30 Days #30 tablet Continued Ondansetron [Zofran ODT] 4 mg SL Q12H PRN PRN Reason: Nausea Albuterol Neb [Proventil Neb] 2.5 mg IH Q4HR PRN #100 vial.neb PRN Reason: Dyspnea Aspirin 81 mg PO DAILY #30 tab.chew Atorvastatin Calcium [Lipitor] 80 mg PO HS #30 tablet Isosorbide DInitrate [Isosorbide Dinitrate] 30 mg PO BID #60 tablet Metformin HCl [Glucophage] 1,000 mg PO BID #60 tablet Ranolazine [Ranexa] 500 mg PO BID 30 Days #60 tab.er.12h Metoprolol Tartrate [Lopressor] 25 mg PO BID Dicyclomine [Bentyl] 20 mg PO QID Losartan [Cozaar] 50 mg PO BID Magnesium Oxide [Mag-Oxide Magnesium] 400 mg PO DAILY Tizanidine HCl 2 mg PO TID PRN PRN Reason: MUSCLE SPASMS Venlafaxine [Effexor] 75 mg PO BID Apixaban [Eliquis] 5 mg PO BID #60 tablet Albuterol Sulfate [Ventolin Hfa] 2 puff IH Q4H PRN PRN Reason: Shortness Of Breath Ergocalciferol (VITAMIN D2) [Vitamin D2] 50,000 unit PO TU Montelukast [Singulair] 10 mg PO DAILY Changed clonazePAM [Klonopin] 0.5 mg PO TID PRN 4 Days #12 tablet PRN Reason: Anxiety Furosemide [Lasix] 40 mg PO DAILY 30 Days #60 tablet Gabapentin [Neurontin] 300 mg PO TID #90 capsule Omeprazole [PriLOSEC] 40 mg PO DAILY #60 cap Discontinued Sulfamethoxazole/Trimeth DS [Bactrim Ds] 1 each PO BID #8 tablet Home Medications: Ondansetron [Zofran ODT] 4 mg SL Q12H PRN 01/21/18 [History] Albuterol Neb [Proventil Neb] 2.5 mg IH Q4HR PRN #100 vial.neb 02/15/18 [Rx] Aspirin 81 mg PO DAILY #30 tab.chew 02/15/18 [Rx] Atorvastatin Calcium [Lipitor] 80 mg PO HS #30 tablet 02/15/18 [Rx] Isosorbide DInitrate [Isosorbide Dinitrate] 30 mg PO BID #60 tablet 02/15/18 [Rx] Metformin HCl [Glucophage] 1,000 mg PO BID #60 tablet 02/15/18 [Rx] Ranolazine [Ranexa] 500 mg PO BID 30 Days #60 tab.er.12h 02/15/18 [Rx] Metoprolol Tartrate [Lopressor] 25 mg PO BID 02/20/18 [History] Dicyclomine [Bentyl] 20 mg PO QID 02/27/19 [History] Losartan [Cozaar] 50 mg PO BID 02/27/19 [History] Magnesium Oxide [Mag-Oxide Magnesium] 400 mg PO DAILY 02/27/19 [History] Tizanidine HCl 2 mg PO TID PRN 02/27/19 [History] Venlafaxine [Effexor] 75 mg PO BID 02/27/19 [History] Apixaban [Eliquis] 5 mg PO BID #60 tablet 03/04/19 [Rx] Albuterol Sulfate [Ventolin Hfa] 2 puff IH Q4H PRN 06/13/19 [History] Ergocalciferol (VITAMIN D2) [Vitamin D2] 50,000 unit PO TU 06/13/19 [History] Montelukast [Singulair] 10 mg PO DAILY 06/13/19 [History] Amlodipine Besylate 5 mg PO DAILY 30 Days #30 tablet 06/23/19 [Rx] Furosemide [Lasix] 40 mg PO DAILY 30 Days #60 tablet 06/23/19 [Rx] Gabapentin [Neurontin] 300 mg PO TID #90 capsule 06/23/19 [Rx] Omeprazole [PriLOSEC] 40 mg PO DAILY #60 cap 06/23/19 [Rx] clonazePAM [Klonopin] 0.5 mg PO TID PRN 4 Days #12 tablet 06/23/19 [Rx] Allergies/Adverse Reactions: Allergy/AdvReac Type Severity Reaction Status Date / Time No Known Allergies Allergy Verified 06/22/19 13:15 Date of admission: 06/21/19 16:19 Primary care physician: Maddie Morton Consults: 06/21/19 17:37 Consult to Occupational Therapy [CONS] Routine Comment: Evaluate, develop and implement POC Reason for Consult: Weakness Does patient have active BEDREST order?: No Is patient medically & hemodynamically stable?: Yes Patient assessed for mobility or mobilized this visit?: Yes Consult to Physical Therapy [CONS] Routine Comment: Evaluate, develop and implement POC Reason for Consult: weakness Does patient have active BEDREST order?: No Is patient medically & hemodynamically stable?: Yes Patient assessed for mobility or mobilized this visit?: Yes Discharging clinician: Leighann Apodaca Anticipated date of discharge: 06/23/19 - Constitutional Vitals: Temp Pulse Resp BP Pulse Ox 97.5 F L 115 15 140/115 96 06/23/19 07:36 06/23/19 07:36 06/23/19 07:36 06/23/19 07:36 06/23/19 07:36 General appearance: Present: A&O X 3, no acute distress, answers questions appropriately Exam: Gen: Vitals noted. No acute distress. Appears comfortable. Eyes: anicteric sclerae, moist conjunctivae; no lid-lag HENT: Atraumatic; oropharynx clear with moist mucous membranes and no mucosal ulcerations Neck: Trachea midline; supple, no thyromegaly or lymphadenopathy Cardiac:Regular rate with irregular rhythm, no murmur, +S1/S2. No JVD noted. Pulmonary: CTA bilaterally, no wheezes, rales or rhonchi, equal chest expansion Abdomen: soft, nontender, no guarding. MSK: ROM intact, no edema Skin: Normal temperature, turgor; no rash, ulcers or subcutaneous nodules Neuro: moves all extremities, no focal deficits. Psych: Appropriate mood and behavior. A&Ox3 - Patient Status Disposition: Home, Self-Care Condition: Fair Overall status at discharge: patient is progressing back to baseline - Discharge Instructions Follow Up With: Maddie Morton [Primary Care Provider] - Forms: ED Satisfaction Letter - Diet and Activity Activity: increase activity as tolerated Diet: diabetic diet (with fluid restriction of 1.5 liters), low salt diet
[2019-06-23 10:33] VITALS: BP 128/96
== END 2019-06-23 18:35 | disposition home or self-care (01) ==
LOC: EMEROOARM 14:01 → 2NENU 14:01 → SUATTDRO 16:19 → 2NENU 17:38
PROVIDERS: ADMIT Internal Medicine; ATTEND Internal Medicine

== ENCOUNTER 2019-07-01 23:59 | Inpatient (IN) ==
[2019-07-02] MEDS ORDERED: Ipratropium/Albuterol Neb 3 ML IH ONE (00:36)
[2019-07-02] MEDS ORDERED: Furosemide 40 MG/4 ML VIAL IVP ONE (00:36)
[2019-07-02] MEDS ORDERED: methylPREDNISolone 125 MG/2 ML VIAL IVP ONE (00:36)
[2019-07-02] MEDS ORDERED: 0.9 % Sodium Chloride 500 ML IVC ONE (00:41)
[2019-07-02] MEDS ORDERED: Isovue-370 500 ML BOTTLE IVP ONE (00:41)
--- NOTE | 2019-07-02 00:41 | Emergency Department Note ---
Disposition Clinical Impression: Chronic atrial fibrillation, Lung nodule CHF exacerbation Qualifiers: Heart failure type: unspecified Qualified Code(s): I50.9 - Heart failure, unspecified Disposition: Admitted As Inpatient Condition: Fair Referrals: Maddie Morton [Primary Care Provider] - Forms: ED Satisfaction Letter Time of Disposition: 04:45 SOB HPI - General Chief Complaint: ED Shortness of Breath/Dyspnea Stated Complaint: deb Time Seen by Provider: 07/02/19 00:21 Source: patient Mode of arrival: EMS Limitations: no limitations Nursing Notes Reviewed: Yes Vital Signs Reviewed: Yes - History of Present Illness Patient is a 68-year-old female presenting with difficulty breathing. Patient with known history of COPD, atrial fibrillation, DVT, PE, and CHF. Patient has been admitted multiple times for similar symptoms in the past. Most recently was discharged approximately at the end of May with CHF exacerbation and A. fib with RVR. Patient states that over the past few days she has been having increased shortness of breath, she does wear occasional oxygen at home, 2 L. She states that today she began to have increasing shortness of breath with no c hange in her usual cough. No fevers or chills. No abdominal pain, nausea or vomiting. No chest pain. She states it is very difficult for her to catch her breath, is pleuritic in nature. She also describes worsening leg swelling. She states she has been taking her usual medications. - Related Data Home Medications Medication Instructions Recorded Confirmed Ondansetron [Zofran ODT] 4 mg SL Q12H PRN 01/21/18 06/22/19 Metoprolol Tartrate [Lopressor] 25 mg PO BID 02/20/18 06/22/19 Dicyclomine [Bentyl] 20 mg PO QID 02/27/19 06/22/19 Losartan [Cozaar] 50 mg PO BID 02/27/19 06/22/19 Magnesium Oxide [Mag-Oxide 400 mg PO DAILY 02/27/19 06/22/19 Magnesium] Tizanidine HCl 2 mg PO TID PRN 02/27/19 06/22/19 Venlafaxine [Effexor] 75 mg PO BID 02/27/19 06/22/19 Albuterol Sulfate [Ventolin Hfa] 2 puff IH Q4H PRN 06/13/19 06/22/19 Ergocalciferol (VITAMIN D2) 50,000 unit PO TU 06/13/19 06/22/19 [Vitamin D2] Montelukast [Singulair] 10 mg PO DAILY 06/13/19 06/22/19 Previous Rx's Medication Instructions Recorded Albuterol Neb [Proventil Neb] 2.5 mg IH Q4HR PRN #100 vial.neb 02/15/18 Aspirin 81 mg PO DAILY #30 tab.chew 02/15/18 Atorvastatin Calcium [Lipitor] 80 mg PO HS #30 tablet 02/15/18 Isosorbide DInitrate [Isosorbide 30 mg PO BID #60 tablet 02/15/18 Dinitrate] Metformin HCl [Glucophage] 1,000 mg PO BID #60 tablet 02/15/18 Ranolazine [Ranexa] 500 mg PO BID 30 Days #60 02/15/18 tab.er.12h Apixaban [Eliquis] 5 mg PO BID #60 tablet 03/04/19 Amlodipine Besylate 5 mg PO DAILY 30 Days #30 tablet 06/23/19 Furosemide [Lasix] 40 mg PO DAILY 30 Days #60 tablet 06/23/19 Gabapentin [Neurontin] 300 mg PO TID #90 capsule 06/23/19 Omeprazole [PriLOSEC] 40 mg PO DAILY #60 cap 06/23/19 clonazePAM [Klonopin] 0.5 mg PO TID PRN 4 Days #12 tablet 06/23/19 Allergies Allergy/AdvReac Type Severity Reaction Status Date / Time No Known Allergies Allergy Verified 06/22/19 13:15 All systems ED: reviewed and negative except as stated. Review of Systems: As Per HPI Constitutional: Denies: fever, chills ENT ED: Denies: congestion Cardiovascular: Reports: dyspnea on exertion, edema. Denies: chest pain, palpitations, syncope Respiratory: Reports: cough, dyspnea, wheezes. Denies: hemoptysis, sputum production Gastrointestinal: Denies: abdominal pain, nausea, vomiting Genitourinary: Denies: urgency Musculoskeletal: Denies: back pain Integumentary: Denies: rash Neurological: Denies: headache, weakness, confusion, abnormal gait, vertigo Endocrine: Denies: fatigue Past Medical History - Past Medical History Medical history: Reports: arthritis, atrial fibrillation, COPD, coronary artery disease, DVT, hyperlipidemia, hypertension, migraine, myocardial infarction, peripheral artery disease Surgical history: Reports: cholecystectomy, hysterectomy Psychiatric history: Reports: anxiety, depression 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 - Social History Smoking Status: Current every day smoker Smokeless Tobacco Status: No Alcohol use: Reports: none Drug use: Reports: none Physical Exam - General Limitations: no limitations General appearance: alert - Head Head exam: atraumatic, normocephalic, normal inspection - Eye Eye exam: Present: normal appearance, PERRL, EOMI - ENT ENT exam: mucous membranes dry - Neck Neck exam: Present: normal inspection, full ROM, trachea midline - Chest Chest inspection: Present: normal inspection - Respiratory Respiratory exam: Present: prolonged expiratory phase (Decrease her since out, diffuse wheezing without significant crackles, patient is not conversationally dyspneic) - Cardiovascular Cardiovascular exam: Present: tachycardia, irregular rhythm - Abdominal Exam Abdominal exam: Present: soft, Non-Tender. Absent: tenderness, distention, guarding, rebound, rigidity - Extremities Exam Extremities exam: Present: pedal edema (Patient with 2+ pitting edema to the bilateral lower extremities, equal and symmetric bilaterally, with normal cap refill, no calf tenderness) - Expanded Lower Extremity Exam Neurovascular/Tendon exam: Absent: motor deficit, sensory deficit, tendon deficit - Neurological Exam Neurological exam: Present: alert, oriented X3 - Psychiatric Psychiatric exam: Present: normal affect, normal mood - Skin Skin exam: Present: warm, dry, intact, normal color Course Vital Signs Temperature 97.7 F 07/02/19 00:13 Pulse Rate 120 07/02/19 00:13 Respiratory Rate 22 07/02/19 00:13 Blood Pressure 159/114 07/02/19 00:13 O2 Sat by Pulse Oximetry 95 07/02/19 00:13 Temperature 97.7 F 07/02/19 00:13 Pulse Rate 106 07/02/19 04:00 Respiratory Rate 22 07/02/19 04:00 Blood Pressure 175/108 07/02/19 04:00 O2 Sat by Pulse Oximetry 91 07/02/19 04:00 Oxygen Delivery Oxygen Delivery Nasal Cannula Shortness of Breath/Dyspnea - MDM Narrative Medical decision making narrative: Patient is a 68-year-old female presenting with shortness of breath. Patient has history of atrial fibrillation, COPD, CHF with increasing soreness of breath over the past few days. On initial presentation, patient is satting at 95% on 2 L of oxygen, she is slightly tachycardic in the low 100s, and in atrial fibrillation. She states this is chronic for her she is currently on Eliquis. CBC, BMP, troponin are all within normal limits. EKG shows no acute ischemic changes. BNP is significantly elevated, however following last admission this is slightly decreased from this admission. Concern also for pulmonary embolism as patient has history for this, CTA was performed. No sign of PE was noted. There is mention of unchanged chronic thromboembolic disease and pulmonary h ypertension with volume overload, bilateral pleural effusions and interstitial edema. For this reason, patient was only given 500 mL's of fluid while here to try to manage her rate. There was also note on CT of interval increase in change of a right upper lobe nodule, this did give suspicion for adenocarcinoma requesting further investigation. Patient was given a DuoNeb as well as Solu-Medrol, with little change. Suspect this is most likely CHF exacerbation as well as other chronic etiologies including COPD and A. fib. For this reason, patient will be admitted for further evaluation and treatment. She was given 40 mg of Lasix. Accepted by Dr. Nascimento at 444 - Medical Records Medical records reviewed: Yes I reviewed the patient's medical records. - Lab Data Lab results reviewed: Yes I reviewed the patient's lab results. Result diagrams: 07/02/19 00:51 07/02/19 00:51 Lab Results 07/02/19 07/02/19 07/02/19 Range/Units 00:51 00:51 00:51 WBC 6.5 (4.3-11.1) K/mcL RBC 3.76 L (3.82-4.97) M/mcL Hgb 10.9 L (11.5-15.4) g/dL Hct 35.1 L (35.3-44.9) % MCV 93.4 (83.0-100.0) fL MCH 29.0 (28.0-33.3) pg MCHC 31.1 L (31.6-35.5) g/dL RDW 21.3 H (11.5-14.5) % Plt Count 183 (140-400) K/mcL MPV 9.8 (9.4-12.4) fL Immature Gran % 0.2 (0-4) % Seg Neutrophils % 74.4 % Lymphocytes % 16.9 % Monocytes % 7.4 % Eosinophils % 0.8 % Basophils % 0.3 % Neutrophils # 4.8 (1.6-8.9) K/mcL Lymphocytes # 1.1 (0.6-4.6) K/mcL Monocytes # 0.5 (0.0-1.3) K/mcL Eosinophils # 0.1 (0.0-0.6) K/mcL Basophils # 0.0 (0.0-0.2) K/mcL Sodium 139 (136-145) mEq/L Potassium 3.3 L (3.5-5.1) mEq/L Chloride 104 (98-107) mEq/L Carbon Dioxide 26 (23-29) mEq/L BUN 12 (8-23) mg/dL Creatinine 0.68 (0.60-1.20) mg/dL Est GFR ( Amer) > 60 (> 60) Est GFR (Non-Af Amer) > 60 (> 60) BUN/Creatinine Ratio 18 (6-26) Glucose 204 H (70-105) mg/dL Calculated Osmolality 294 (280-300) Calcium 9.4 (8.6-10.3) mg/dL Troponin I 0.03 (< 0.04) ng/mL B-Natriuretic Peptide 2690 H (Less than 100) pg/mL - Radiology Data Radiology results reviewed: Yes I reviewed the patient's radiology results. Chest CTA 07/02/19 00:41 IMPRESSION: Negative for acute pulmonary embolism. Unchanged features of chronic thromboembolic disease and pulmonary hypertension (CTEPH). Volume overload, with bilateral pleural effusions and interstitial edema. Interval increase in size of chronic right upper lobe solid nodular opacities dating back through at least 2017. Although these did not demonstrate FDG uptake, the are suspicious for adenocarcinoma spectrum lesions given slow long-term growth/persistence and background smoking-related lung injury. Consideration could be given to use soft tissue sampling. D/ / Masoud Daniels / Masoud Daniels Interpreting Provider: Masoud Daniels - EKG Data EKG attestation: Yes I reviewed and interpreted this EKG. EKG results narrative: EKG performed at 0050 with ventricular rate of 112, irregularly irregular rhythm with multiple PVCs, no ST segment elevation, depression, nonspecific T-wave changes. No old EKG for comparison.
[2019-07-02 01:24] LABS: Basophils % 0.3 %; Eosinophils # 0.1 K/mcL (0.0-0.6); Eosinophils % 0.8 %; Hematocrit 35.1 % (35.3-44.9); Hemoglobin 10.9 g/dL (11.5-15.4); Immature Granulocytes % 0.2 % (0-4); Lymphocytes # 1.1 K/mcL (0.6-4.6); Lymphocytes % 16.9 %; Mean Corpuscular HGB Conc 31.1 g/dL (31.6-35.5); Mean Corpuscular Volume 93.4 fL (83.0-100.0); Mean Platelet Volume 9.8 fL (9.4-12.4); Monocytes # 0.5 K/mcL (0.0-1.3); Monocytes % 7.4 %; Neutrophils # 4.8 K/mcL (1.6-8.9); Platelet Count 183 K/mcL (140-400); Red Blood Count 3.76 M/mcL (3.82-4.97); Red Cell Distribution Width 21.3 % (11.5-14.5); Segmented Neutrophils % 74.4 %; White Blood Count 6.5 K/mcL (4.3-11.1)
[2019-07-02 01:25] LABS: BUN/Creatinine Ratio 18 (6-26); Blood Urea Nitrogen 12 mg/dL (8-23); Calcium 9.4 mg/dL (8.6-10.3); Carbon Dioxide 26 mEq/L (23-29); Chloride 104 mEq/L (98-107); Glucose 204 mg/dL (70-105); Osmolality,Calculated 294 (280-300); Potassium 3.3 mEq/L (3.5-5.1); Sodium 139 mEq/L (136-145); eGFR For African Americans > 60 (> 60); eGFR For Non-African Americans > 60 (> 60)
[2019-07-02 01:26] LABS: Troponin I 0.03 ng/mL (< 0.04)
--- NOTE | 2019-07-02 03:29 | Emergency Department Note ---
Disposition Clinical Impression: Chronic atrial fibrillation, Lung nodule CHF exacerbation Qualifiers: Heart failure type: diastolic Qualified Code(s): I50.33 - Acute on chronic diastolic (congestive) heart failure Disposition: Admitted As Inpatient Condition: Fair Time of Disposition: 04:45 General Adult HPI - General Chief complaint: ED Shortness of Breath/Dyspnea Stated complaint: deb Time Seen by Provider: 07/02/19 00:21 Source: patient Mode of arrival: EMS Limitations: no limitations - History of Present Illness Pain Scale: 9 - Related Data Home Medications Medication Instructions Recorded Confirmed Metoprolol Tartrate [Lopressor] 25 mg PO BID 02/20/18 07/02/19 Magnesium Oxide [Mag-Oxide 400 mg PO DAILY 02/27/19 07/02/19 Magnesium] Tizanidine HCl 2 mg PO TID PRN 02/27/19 07/02/19 Venlafaxine [Effexor] 75 mg PO BID 02/27/19 07/02/19 Albuterol Sulfate [Ventolin Hfa] 1 puff IH Q6H PRN 06/13/19 07/02/19 Ergocalciferol (VITAMIN D2) 50,000 unit PO TU 06/13/19 07/02/19 [Vitamin D2] Montelukast [Singulair] 10 mg PO DAILY 06/13/19 07/02/19 Dicyclomine Hcl [Bentyl] 20 mg PO BID 07/02/19 07/02/19 Isosorbide MONOnitrate (24 HR) 60 mg PO QAM 07/02/19 07/02/19 [Imdur] Losartan Potassium [Cozaar] 50 mg PO BID 07/02/19 07/02/19 Omeprazole [PriLOSEC] 40 mg PO DAILY 07/02/19 07/02/19 Ondansetron HCl 4 mg PO BID PRN 07/02/19 07/02/19 Potassium Chloride [K-Tab ER] 10 meq PO DAILY 07/02/19 07/02/19 Previous Rx's Medication Instructions Recorded Albuterol Neb [Proventil Neb] 2.5 mg IH Q4HR PRN #100 vial.neb 02/15/18 Aspirin 81 mg PO DAILY #30 tab.chew 02/15/18 Atorvastatin Calcium [Lipitor] 80 mg PO HS #30 tablet 02/15/18 Metformin HCl [Glucophage] 1,000 mg PO BID #60 tablet 02/15/18 Ranolazine [Ranexa] 500 mg PO BID 30 Days #60 02/15/18 tab.er.12h Apixaban [Eliquis] 5 mg PO BID #60 tablet 03/04/19 Amlodipine Besylate 5 mg PO DAILY 30 Days #30 tablet 06/23/19 Furosemide [Lasix] 40 mg PO DAILY 30 Days #60 tablet 06/23/19 Gabapentin [Neurontin] 300 mg PO TID #90 capsule 06/23/19 clonazePAM [Klonopin] 0.5 mg PO TID PRN 4 Days #12 tablet 06/23/19 Allergies Allergy/AdvReac Type Severity Reaction Status Date / Time No Known Allergies Allergy Verified 07/02/19 16:44 Constitutional: Denies: fever, chills ENT ED: Denies: congestion Cardiovascular: Reports: dyspnea on exertion, edema. Denies: chest pain, palpitations, syncope Respiratory: Reports: cough, dyspnea, wheezes. Denies: hemoptysis, sputum production Gastrointestinal: Denies: abdominal pain, nausea, vomiting Genitourinary: Denies: urgency Musculoskeletal: Denies: back pain Integumentary: Denies: rash Neurological: Denies: headache, weakness, confusion, abnormal gait, vertigo Endocrine: Denies: fatigue Past Medical History - Past Medical History Medical history: Reports: arthritis, atrial fibrillation, COPD, coronary artery disease, DVT, hyperlipidemia, hypertension, migraine, myocardial infarction, peripheral artery disease Surgical history: Reports: cholecystectomy, hysterectomy Psychiatric history: Reports: anxiety, depression 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 - Social History Smoking Status: Current every day smoker Smokeless Tobacco Status: No Alcohol use: Reports: none Drug use: Reports: none Physical Exam - General Limitations: no limitations General appearance: alert Course Vital Signs Temperature 97.7 F 07/02/19 00:13 Pulse Rate 120 07/02/19 00:13 Respiratory Rate 22 07/02/19 00:13 Blood Pressure 159/114 07/02/19 00:13 O2 Sat by Pulse Oximetry 95 07/02/19 00:13 Temperature 97.8 F 07/02/19 19:08 Pulse Rate 94 07/02/19 19:08 Respiratory Rate 17 07/02/19 19:08 Blood Pressure 119/76 07/02/19 19:08 O2 Sat by Pulse Oximetry 95 07/02/19 19:08 Oxygen Delivery Oxygen Delivery Nasal Cannula Medical Decision Making - Lab Data Result diagrams: 07/02/19 00:51 07/02/19 00:51 Lab Results 07/02/19 07/02/19 07/02/19 Range/Units 00:51 00:51 00:51 WBC 6.5 (4.3-11.1) K/mcL RBC 3.76 L (3.82-4.97) M/mcL Hgb 10.9 L (11.5-15.4) g/dL Hct 35.1 L (35.3-44.9) % MCV 93.4 (83.0-100.0) fL MCH 29.0 (28.0-33.3) pg MCHC 31.1 L (31.6-35.5) g/dL RDW 21.3 H (11.5-14.5) % Plt Count 183 (140-400) K/mcL MPV 9.8 (9.4-12.4) fL Immature Gran % 0.2 (0-4) % Seg Neutrophils % 74.4 % Lymphocytes % 16.9 % Monocytes % 7.4 % Eosinophils % 0.8 % Basophils % 0.3 % Neutrophils # 4.8 (1.6-8.9) K/mcL Lymphocytes # 1.1 (0.6-4.6) K/mcL Monocytes # 0.5 (0.0-1.3) K/mcL Eosinophils # 0.1 (0.0-0.6) K/mcL Basophils # 0.0 (0.0-0.2) K/mcL Sodium 139 (136-145) mEq/L Potassium 3.3 L (3.5-5.1) mEq/L Chloride 104 (98-107) mEq/L Carbon Dioxide 26 (23-29) mEq/L BUN 12 (8-23) mg/dL Creatinine 0.68 (0.60-1.20) mg/dL Est GFR ( Amer) > 60 (> 60) Est GFR (Non-Af Amer) > 60 (> 60) BUN/Creatinine Ratio 18 (6-26) Glucose 204 H (70-105) mg/dL Calculated Osmolality 294 (280-300) Calcium 9.4 (8.6-10.3) mg/dL Troponin I 0.03 (< 0.04) ng/mL B-Natriuretic Peptide 2690 H (Less than 100) pg/mL Attestation Statement - Attestation Attestation: I examined this patient and my medical decision-making was reviewed with the Resident Physician. I agree with the documented findings, disposition and treatment plan as described except to the extent set forth below. Patient 68-year-old female presents to the emergency department with chief complaint of shortness of breath and peripheral edema. The patient reports she has been admitted multiple times over the last month states she was discharged approximately 2 weeks ago and now is having worsening shortness of breath dyspnea on exertion and notes peripheral edema. The patient awake alert no acute distress she has 1+ pitting edema lower extremities Medical decision management EKG was obtained which showed evidence of atrial fibrillation laboratory studies were obtained which showed a mildly elevated BNP which is improved from her previous studies. A CTA of the chest was obtained to evaluate for possible pulmonary embolism. The plan is to admit the patient after the results of the CTA are obtained.
--- NOTE | 2019-07-02 06:46 | Electrocardiograph Report ---
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
[2019-07-02] MEDS ORDERED: Naloxone 0.4 MG/ML INJ IVP PRN (08:35)
[2019-07-02] MEDS ORDERED: *HR* Dextrose 50 % in Water (Syg) 50 ML SYRINGE IVP PRN (08:39)
[2019-07-02] MEDS ORDERED: D5% in Water 1,000 ML IVC PRN (08:39)
[2019-07-02] MEDS ORDERED: Dextrose Gel 15 GM/37.5 ML TUBE PO PRN ×2 (08:39)
--- NOTE | 2019-07-02 08:51 | Internal Med History&Physical ---
<Adonay Herrera F - Last Filed: 07/02/19 14:25> Date of Encounter: 07/02/19 Time of Encounter: 08:20 Internal Medicine - H&P: HPI Chief complaint: shortness of breath Admitted From: Home Plans for Post Hospital Care: Home History of present illness: Ms. Costa is a 68 year old female with a past medical history of COPD, atrial fibrillation with RVR on apixaban, DVT/PE, CHF, coronary artery disease, hyperli pidemia, peripheral artery disease, [place], hypertension, diabetes who presents with progressive shortness of breath for the past several days. Patient denies knowledge of any inciting event or trigger. Feels similar to previous CHF exacerbations. Patient has some increased bilateral extremity edema. Patient endorses some chest pain upon inspiration. Denied any nausea, vomiting, fevers, chills. Denies any cough with no sputum production. Denies wheezing. Patient was recently admitted in May 2019 for CHF exacerbation. She was also noted to be in A. fib with RVR. Had missed some home medications. She had a BNP of 3763. X-ray showed pulmonary vascular congestion. She was treated with IV Lasix. Was discharged on 3 L of home oxygen. In the emergency department patient had temp 98.4, HR 112, RR 16, BP 150/92, 89% on 2 L NC. Patient was in atrial fibrillation. CBC, BMP, troponin were all within normal limits. EKG showed no acute ischemic changes. BNP was significantly elevated. CT angios was performed, negative PE. CT did show chronic thromboembolic disease, pulmonary hypertension, volume overload, bilateral pleural effusions, interstitial edema. She was given 500 mils normal saline to manage her rate. CT also showed interval increase of change in right upper lobe nodule suspicious for adenocarcinoma. Patient was treated with DuoNeb's, Solu-Medrol with little improvement. Given 40 mg Lasix. Past Med Surg Social Fam HX - Past Medical History Attestation: Yes The following information was validated with the patient. Source: patient Medical history: arthritis, atrial fibrillation, COPD, coronary artery disease, DVT, hyperlipidemia, hypertension, migraine, myocardial infarction, peripheral artery disease Additional medical history: [place] with angioplasty, cardiac stents. PE Psychiatric history: anxiety, depression - Past Surgical History Surgical History: cholecystectomy, hysterectomy Additional surgical history: right knee replacement. 4 cardiac stents. 1 renal stent - Social History Smoking Status: Current every day smoker Packs per day: 1 Smokeless Tobacco Status: No Alcohol use: none Drug use: none - Family History Mother Adopted: No Living Status: Hx Family Cardiac Disorders: Yes Hx Family Respiratory Disorders: Yes Hx Family Cancer: No Hx Family GI Disorders: No Hx Family Endocrine Disorder: Yes Hx Family Neuromuscular Disorders: No Hx Family Neurologic Disorders: No Hx Family HEENT Disorders: No Hx Family Autoimmune Disorders: No Father Adopted: No Living Status: Hx Family Cardiac Disorders: Yes Hx Family Respiratory Disorders: No Hx Family Cancer: Yes (Prostate) Hx Family GI Disorders: No Hx Family Endocrine Disorder: Yes (DM) Hx Family Neuromuscular Disorders: No Hx Family Neurologic Disorders: No Hx Family HEENT Disorders: No Hx Family Autoimmune Disorders: No Internal Medicine - H&P: Meds Ondansetron [Zofran ODT] 4 mg SL Q12H PRN 01/21/18 [History] Albuterol Neb [Proventil Neb] 2.5 mg IH Q4HR PRN #100 vial.neb 02/15/18 [Rx] Aspirin 81 mg PO DAILY #30 tab.chew 02/15/18 [Rx] Atorvastatin Calcium [Lipitor] 80 mg PO HS #30 tablet 02/15/18 [Rx] Isosorbide DInitrate [Isosorbide Dinitrate] 30 mg PO BID #60 tablet 02/15/18 [Rx] Metformin HCl [Glucophage] 1,000 mg PO BID #60 tablet 02/15/18 [Rx] Ranolazine [Ranexa] 500 mg PO BID 30 Days #60 tab.er.12h 02/15/18 [Rx] Metoprolol Tartrate [Lopressor] 25 mg PO BID 02/20/18 [History] Dicyclomine [Bentyl] 20 mg PO QID 02/27/19 [History] Losartan [Cozaar] 50 mg PO BID 02/27/19 [History] Magnesium Oxide [Mag-Oxide Magnesium] 400 mg PO DAILY 02/27/19 [History] Tizanidine HCl 2 mg PO TID PRN 02/27/19 [History] Venlafaxine [Effexor] 75 mg PO BID 02/27/19 [History] Apixaban [Eliquis] 5 mg PO BID #60 tablet 03/04/19 [Rx] Albuterol Sulfate [Ventolin Hfa] 2 puff IH Q4H PRN 06/13/19 [History] Ergocalciferol (VITAMIN D2) [Vitamin D2] 50,000 unit PO TU 06/13/19 [History] Montelukast [Singulair] 10 mg PO DAILY 06/13/19 [History] Amlodipine Besylate 5 mg PO DAILY 30 Days #30 tablet 06/23/19 [Rx] Furosemide [Lasix] 40 mg PO DAILY 30 Days #60 tablet 06/23/19 [Rx] Gabapentin [Neurontin] 300 mg PO TID #90 capsule 06/23/19 [Rx] Omeprazole [PriLOSEC] 40 mg PO DAILY #60 cap 06/23/19 [Rx] clonazePAM [Klonopin] 0.5 mg PO TID PRN 4 Days #12 tablet 06/23/19 [Rx] Allergy/AdvReac Type Severity Reaction Status Date / Time No Known Allergies Allergy Verified 06/22/19 13:15 All Systems PM: A 10-system review of systems was performed and is negative for pertinent findings except as documented above in the HPI. - Constitutional Constitutional: no chills, no fever(s), no night sweats - EENT Eyes: no change in vision, no discharge, no pain, no photophobia Ears: no ear discharge, no ear pain, no tinnitus Nose, mouth and throat: no dysphagia, no nasal discharge, no neck pain, no sore throat - Cardiovascular Cardiovascular ROS IM: chest pain, dyspnea, dyspnea on exertion, edema, irregular heart rhythm - Respiratory Respiratory: dyspnea, dyspnea on exertion, pain on inspiration, no cough, no wheezing, no stridor - Gastrointestinal Gastrointestinal: no abdominal pain, no diarrhea, no hematemesis, no hematochezia, no melena, no nausea, no vomiting - Genitourinary Genitourinary: no change in urinary stream, no dysuria, no flank pain, no hematuria - Musculoskeletal Musculoskeletal ROS IM: no numbness, no tingling - Integumentary Integumentary IM: no rash, no unusual bruising - Neurological Neurological ROS: no confusion, no convulsions, no focal weakness, no numbness, no tingling, no tremor(s) - Psychiatric Psychiatric: no anxiety, no depression, no suicidal ideation - Hematologic/Lymphatic Hematologic/Lymphatic: no easy bruising - Constitutional Vitals: Temp Pulse Resp BP Pulse Ox 98.4 F 112 16 150/92 89 07/02/19 07:04 07/02/19 07:04 07/02/19 07:04 07/02/19 07:04 07/02/19 07:04 Exam: GEN: Tired appearing, no acute distress, arousable to voice HEAD: Normocephalic, atraumatic. EYES: PERRL, EOMI, anicteric. ENT: MMM. oropharynx without erythema or drainage. NECK: Supple. No LAD. No stiffness or restricted ROM. No tracheal deviation. HEART: Irregular rate and rhythm, normal S1/S2, no m/r/g. LUNGS: CTAB, however poor inspiratory effort. No wheezing, rubs, or rhonchi. ABDO: Soft, nontender, nondistended with active bowel sounds. : No suprapubic tenderness or CVA tenderness. BACK: No obvious stepoffs or deformities. EXT: Without cyanosis, clubbing. 1+ pitting edema of bilateral lower extremities. SKIN: Warm and dry without any rash. NEURO: Grossly nonfocal. Alert and oriented, moving all 4 extremities. CN not formally tested but appear grossly intact. PSYCH: Normal affect, no depressed or anxious mood. Internal Med - H&P Results - Labs CBC & Chem 7: 07/02/19 00:51 07/02/19 00:51 Labs: Short CBC 07/02/19 Range/Units 00:51 WBC 6.5 (4.3-11.1) K/mcL Hgb 10.9 L (11.5-15.4) g/dL Hct 35.1 L (35.3-44.9) % Plt Count 183 (140-400) K/mcL Neutrophils # 4.8 (1.6-8.9) K/mcL BMP 07/02/19 00:51 Sodium 139 Potassium 3.3 L Chloride 104 Carbon Dioxide 26 BUN 12 Creatinine 0.68 Glucose 204 H Calcium 9.4 Cardiac Enzymes 07/02/19 Range/Units 00:51 Troponin I 0.03 (< 0.04) ng/mL - Impressions ITS Impressions Chest CTA 07/02/19 00:41 IMPRESSION: Negative for acute pulmonary embolism. Unchanged features of chronic thromboembolic disease and pulmonary hypertension (CTEPH). Volume overload, with bilateral pleural effusions and interstitial edema. Interval increase in size of chronic right upper lobe solid nodular opacities dating back through at least 2017. Although these did not demonstrate FDG uptake, the are suspicious for adenocarcinoma spectrum lesions given slow long-term growth/persistence and background smoking-related lung injury. Consideration could be given to soft tissue sampling. D/ / Masoud Daniels / Masoud Daniels Interpreting Provider: Masoud Daniels - Assessment and Plan (1) Acute exacerbation of congestive heart failure Current Visit: Yes Status: Acute Assessment and plan: Patient presented with shortness of breath and fluid overload consistent with CHF exacerbation. Notable to have a BNP of over 2000 with normal EKG and troponins. CT angio showed fluid overload, neg PE In the ED, was given 500 mL normal saline, DuoNeb, steroids, 40 g of Lasix Plan: - Lasix 40mg IV BID - Levalbuterol q6 for SOB Qualifiers: Heart failure type: unspecified Qualified Code(s): I50.9 - Heart failure, unspecified (2) Atrial fibrillation with RVR Current Visit: Yes Status: Acute Assessment and plan: Patient presented with atrial fibrillation with RVR. Currently stable. - Rate controlled with cardizem drip, titrated as necessary to goal HR 90 (3) Falls Current Visit: Yes Status: Acute Assessment and plan: Patient reported falling prior to admission. Uncertain if she had head trauma or loss of consciousness. - CT head wo showed: No acute intracranial abnormality, chronic microvascular ischemic changes in the white matter - Falls risk - PT/OT consult Qualifiers: Encounter type: sequela Qualified Code(s): W19.XXXS - Unspecified fall, sequela (4) COPD (chronic obstructive pulmonary disease) Current Visit: Yes Status: Chronic Assessment and plan: Was hypoxic upon arrival. However given signs of fluid overload, most likely sy mptoms due to CHF exacerbation. - Currently on 2 L nasal cannula - To provide smoking cessation counseling Qualifiers: COPD type: emphysema Emphysema type: unspecified Qualified Code(s): J43.9 - Emphysema, unspecified (5) HTN (hypertension) Current Visit: Yes Status: Chronic Assessment and plan: - Currently holding home medications Qualifiers: Hypertension type: essential hypertension Qualified Code(s): I10 - Essential (primary) hypertension (6) Type 2 diabetes mellitus Current Visit: Yes Status: Chronic Assessment and plan: - Started on SSI - Diabetic, cardiac diet Qualifiers: Diabetes mellitus shelter insulin use: without rat exterminator use Diabetes mellitus complication status: with circulatory complication Diabetes mellitus complication detail: with peripheral angiopathy without gangrene Qualified Code(s): E11.51 - Type 2 diabetes mellitus with diabetic peripheral angiopathy without gangrene (7) Lung nodule Current Visit: Yes Status: Chronic Assessment and plan: Patient has a history of known pulmonary nodule - Elected to have no treatment at this time (8) History of pulmonary embolism Current Visit: No Status: Chronic Assessment and plan: Patient has a history of DVT/PE CT PE in the ED was negative for PE - Currently anticoagulated on Eliquis (9) Coronary artery disease Current Visit: No Status: Chronic Assessment and plan: - Currently holding home medications Qualifiers: Coronary Disease-Associated Artery/Lesion type: [place] artery [place] vs. transplanted heart: [place] heart Associated angina: with stable angina Qualified Code(s): I25.118 - Atherosclerotic heart disease of [place] coronary artery with other forms of angina pectoris (10) DVT prophylaxis Current Visit: Yes Status: Acute Assessment and plan: On eliquis for previous hx of DVT/PE - Time Spent With Patient Total time spent is greater than 50% in coordination of care (as documented) at patient's floor/unit and/or counseling patient: less than 15 minutes <Nirav Hernandez - Last Filed: 07/02/19 15:20> Date of Encounter: 07/02/19 Internal Medicine - H&P: HPI History of present illness: Ms. Costa is a 68 year old female All Systems PM: A 10-system review of systems was performed and is negative for pertinent findings except as documented above in the HPI. - Constitutional Vitals: Temp Pulse Resp BP Pulse Ox 98.0 F 115 14 139/86 97 07/02/19 11:23 07/02/19 13:25 07/02/19 13:25 07/02/19 13:25 07/02/19 13:25 Internal Med - H&P Results - Labs CBC & Chem 7: 07/02/19 00:51 07/02/19 00:51 Labs: Short CBC 07/02/19 Range/Units 00:51 WBC 6.5 (4.3-11.1) K/mcL Hgb 10.9 L (11.5-15.4) g/dL Hct 35.1 L (35.3-44.9) % Plt Count 183 (140-400) K/mcL Neutrophils # 4.8 (1.6-8.9) K/mcL BMP 07/02/19 00:51 Sodium 139 Potassium 3.3 L Chloride 104 Carbon Dioxide 26 BUN 12 Creatinine 0.68 Glucose 204 H Calcium 9.4 Cardiac Enzymes 07/02/19 Range/Units 00:51 Troponin I 0.03 (< 0.04) ng/mL - ABG Interpretation ABG results: 07/02/19 08:53 ABG pH 7.49 H ABG pCO2 40 ABG pO2 63 L ABG HCO3 30 H ABG Total CO2 32 H ABG O2 Saturation 94 L ABG Base Excess 7 H - Impressions ITS Impressions Chest CTA 07/02/19 00:41 IMPRESSION: Negative for acute pulmonary embolism. Unchanged features of chronic thromboembolic disease and pulmonary hypertension (CTEPH). Volume overload, with bilateral pleural effusions and interstitial edema. Interval increase in size of chronic right upper lobe solid nodular opacities dating back through at least 2017. Although these did not demonstrate FDG uptake, the are suspicious for adenocarcinoma spectrum lesions given slow long-term growth/persistence and background smoking-related lung injury. Consideration could be given to soft tissue sampling. D/ / Masoud Daniels / Masoud Daniels Interpreting Provider: Masoud Daniels Head CT 07/02/19 08:10 IMPRESSION: No acute intracranial abnormality. Chronic microvascular ischemic changes in the white matter. D/ / Salvatore Gray / Salvatore Gray Interpreting Provider: Salvatore Gray - Assessment and Plan (1) Acute exacerbation of congestive heart failure Current Visit: Yes Status: Acute Qualifiers: Heart failure type: diastolic Qualified Code(s): I50.33 - Acute on chronic diastolic (congestive) heart failure (2) Falls Current Visit: Yes Status: Acute Qualifiers: Encounter type: sequela Qualified Code(s): W19.XXXS - Unspecified fall, sequela (3) COPD (chronic obstructive pulmonary disease) Current Visit: Yes Status: Chronic Qualifiers: COPD type: emphysema Emphysema type: unspecified Qualified Code(s): J43.9 - Emphysema, unspecified (4) Chronic atrial fibrillation Current Visit: Yes Status: Chronic (5) HTN (hypertension) Current Visit: Yes Status: Chronic Qualifiers: Hypertension type: essential hypertension Qualified Code(s): I10 - Essential (primary) hypertension (6) Type 2 diabetes mellitus Current Visit: Yes Status: Chronic Qualifiers: Diabetes mellitus shelter insulin use: without rat exterminator use Diabetes mellitus complication status: with circulatory complication Diabetes mellitus complication detail: with peripheral angiopathy without gangrene Qualified Code(s): E11.51 - Type 2 diabetes mellitus with diabetic peripheral angiopathy without gangrene (7) Chronic respiratory failure with hypoxia Current Visit: No Status: Chronic (8) Tobacco abuse Current Visit: No Status: Chronic - Time Spent With Patient Total time spent is greater than 50% in coordination of care (as documented) at patient's floor/unit and/or counseling patient: - Attending Attestation I examined this patient and my medical decision-making was reviewed with the Resident Physician on 07/02/19. I agree with the documented findings, disposition and treatment plan as described except to the extent set forth below. Ms Costa is 68 y/o female with hx of COPD and CHF presented to ED with worsening dyspnea. Found to be in CHF again. Recently discharged from here and this is third hospitalization in about a month. Denies CP. Has had some falls. No abd pain or diarrhea. Given Lasix in ED. Also noted to be in rapid a fib. Exam: ALert. NC. Bruising noted on forehead, arms, chest. EOMI. Mucus membranes dry. Neck supple. Heart irreg and tachy. Decreased breath sounds. Abd soft. Edema present. Moves all extremities. No rash. I/P: 1. Acute exac chronic diastolic CHF - Place in observation. Diurese. 2. Resp failure - oxygen and supportive care 3. Atrial fib - on Cardizem drip. Wean off as able. Further diagnoses and plan as above.
[2019-07-02] MEDS ORDERED: Furosemide 40 MG/4 ML VIAL IVP SCH (09:00)
[2019-07-02 09:01] LABS: ABG Base Excess 7 mEq/L (-2 to 3); ABG HCO3 30 mEq/L (21-27); ABG Oxygen Saturation 94 % (95-98); ABG PCO2 40 mmHg (35-45); ABG PH 7.49 pH Units (7.32-7.45); ABG PO2 63 mmHg (85-104); ABG TCO2 32 mEq/L (20-26)
[2019-07-02] MEDS: Potassium Chloride Elixir 20 MEQ/15 ML UDC PO ONE (10:27)
[2019-07-02] MEDS: Furosemide 40 MG/4 ML VIAL IVP SCH ×2 (10:28→16:51)
[2019-07-02] MEDS ORDERED: 0.9 % Sodium Chloride 250 ML ONE (10:33)
[2019-07-02] MEDS: Levalbuterol Neb 0.63 MG/3 ML IH SCH ×3 (11:00→22:47)
[2019-07-02] MEDS: Insulin LISPRO 300 UNITS/3 ML VIAL SQ SCH ×3 (12:13→21:02)
[2019-07-02] MEDS ORDERED: Albuterol 2.5 MG/3 ML NEBULIZER IH PRN (17:47)
[2019-07-02] MEDS: Apixaban 5 MG TABLET PO SCH (21:01)
[2019-07-02] MEDS ORDERED: Ondansetron ODT 4 MG TAB.RAPDIS PO PRN (21:30)
[2019-07-02] MEDS: Ranolazine 500 MG TAB.ER.12H PO SCH (22:04)
[2019-07-02] MEDS: Gabapentin 300 MG CAPSULE PO SCH (22:04)
[2019-07-02] MEDS: tiZANidine 4 MG TABLET PO PRN (22:54)
[2019-07-03] MEDS: Levalbuterol Neb 0.63 MG/3 ML IH SCH ×4 (04:41→22:29)
[2019-07-03 06:09] LABS: Basophils % 0.3 %; Eosinophils # 0.1 K/mcL (0.0-0.6); Eosinophils % 1.5 %; Hematocrit 36.7 % (35.3-44.9); Hemoglobin 11.2 g/dL (11.5-15.4); Immature Granulocytes % 0.1 % (0-4); Lymphocytes # 2.2 K/mcL (0.6-4.6); Lymphocytes % 29.3 %; Mean Corpuscular HGB Conc 30.5 g/dL (31.6-35.5); Mean Corpuscular Hemoglobin 28.5 pg (28.0-33.3); Mean Corpuscular Volume 93.4 fL (83.0-100.0); Mean Platelet Volume 10.1 fL (9.4-12.4); Monocytes # 0.6 K/mcL (0.0-1.3); Monocytes % 7.8 %; Neutrophils # 4.6 K/mcL (1.6-8.9); Platelet Count 211 K/mcL (140-400); Red Blood Count 3.93 M/mcL (3.82-4.97); White Blood Count 7.5 K/mcL (4.3-11.1)
[2019-07-03 06:21] LABS: BUN/Creatinine Ratio 22 (6-26); Blood Urea Nitrogen 19 mg/dL (8-23); Calcium 9.6 mg/dL (8.6-10.3); Carbon Dioxide 32 mEq/L (23-29); Chloride 103 mEq/L (98-107); Glucose 152 mg/dL (70-105); Magnesium 1.7 mg/dL (1.6-2.6); Osmolality,Calculated 293 (280-300); Phosphorous 4.1 mg/dL (2.7-4.5); Potassium 3.7 mEq/L (3.5-5.1); Sodium 139 mEq/L (136-145); eGFR For African Americans > 60 (> 60); eGFR For Non-African Americans > 60 (> 60)
[2019-07-03] MEDS: Insulin LISPRO 300 UNITS/3 ML VIAL SQ SCH ×4 (07:52→20:35)
[2019-07-03] MEDS: Gabapentin 300 MG CAPSULE PO SCH ×3 (09:12→20:27)
[2019-07-03] MEDS: Ranolazine 500 MG TAB.ER.12H PO SCH ×2 (09:12→20:28)
[2019-07-03] MEDS: amLODIPine 5 MG TABLET PO SCH (09:13)
[2019-07-03] MEDS: Aspirin 81 MG TAB.CHEW PO SCH (09:13)
[2019-07-03] MEDS: Apixaban 5 MG TABLET PO SCH ×2 (09:13→20:28)
[2019-07-03] MEDS: Isosorbide MONOnitrate (24 HR) 60 MG TAB.ER.24H PO SCH (09:13)
[2019-07-03] MEDS: Furosemide 40 MG/4 ML VIAL IVP SCH (09:14)
[2019-07-03] MEDS: clonazePAM 1 MG TABLET PO PRN ×2 (09:21→17:05)
[2019-07-03] MEDS ORDERED: Acetaminophen 325 MG TABLET PO PRN (10:34)
[2019-07-03] MEDS ORDERED: Potassium Chloride Elixir 20 MEQ/15 ML UDC PO ONE (11:06)
[2019-07-03] MEDS: Potassium Chloride Elixir 20 MEQ/15 ML UDC PO ONE (13:10)
--- NOTE | 2019-07-03 13:29 | Internal Med Progress Note ---
Hospitalist Progress Note - Encounter Date of Encounter: 07/03/19 Time of Encounter: 13:27 - Subjective Interval History: Patient was seen and examined at bedside. No acute events overnight. Patient says that she has been urinating more on Lasix and that her breathing has improved significantly. Patient is only complaining of pain around both ankles. Patient denies any chest pain, shortness of breath, palpitations. Denies nausea, vomiting, fevers, chills. - Exam Vitals: Temp Pulse Resp BP Pulse Ox 98.0 F 71 17 100/67 96 07/03/19 12:05 07/03/19 12:05 07/03/19 12:05 07/03/19 12:05 07/03/19 12:05 Exam: GEN: No acute distress, well appearing, conversant. HEAD: Normocephalic, atraumatic. EYES: PERRL, EOMI, anicteric. ENT: MMM. oropharynx without erythema or drainage. NECK: Supple. No LAD. No stiffness or restricted ROM. No tracheal deviation. HEART: Irregular rate and rhythm, normal S1/S2, no m/r/g. LUNGS: CTAB, good air exchange bilaterally. No wheezing, rubs, or rhonchi. ABDO: Soft, nontender, nondistended with active bowel sounds. : No suprapubic tenderness or CVA tenderness. BACK: No obvious stepoffs or deformities. EXT: Without cyanosis, clubbing. 1+ pitting edema of bilateral lower extremities. SKIN: Warm and dry without any rash. NEURO: Grossly nonfocal. Alert and oriented, moving all 4 extremities. CN not formally tested but appear grossly intact. PSYCH: Normal affect, no depressed or anxious mood. - Assessment and Plan (1) Acute exacerbation of congestive heart failure Current Visit: Yes Status: Acute Assessment and Plan: Patient presented with shortness of breath and fluid overload consistent with CHF exacerbation. Potential etiologies include atrial fibrillation with RVR, medication noncompliance. Notable to have a BNP of over 2000 with normal EKG and troponins. CT angio showed fluid overload, neg PE In the ED, was given 500 mL normal saline, DuoNeb, steroids, 40 g of Lasix Plan: - Echo 07/03 showed a reduced LV EF 35-40% with global and segmental left ventri cular systolic dysfunction - Lasix 40mg IV BID discontinued, today starting Lasix 40 mg PO BID - Repleted potassium, magnesium due to diuresis - Levalbuterol q6 for SOB (2) Atrial fibrillation with RVR Current Visit: Yes Status: Acute Assessment and Plan: Patient presented with atrial fibrillation with RVR. Currently stable. - Discontinued Cardizem drip - Started on metoprolol 50 mg PO BID (3) Falls Current Visit: Yes Status: Acute Assessment and Plan: Patient reported falling prior to admission. Uncertain if she had head trauma or loss of consciousness. - CT head w/o showed: No acute intracranial abnormality, chronic microvascular ischemic changes in the white matter - Falls risk - PT/OT consult (4) COPD (chronic obstructive pulmonary disease) Current Visit: Yes Status: Chronic Assessment and Plan: Was hypoxic upon arrival. However given signs of fluid overload, most likely symptoms due to CHF exacerbation. - Currently on 2 L nasal cannula - To provide smoking cessation counseling (5) HTN (hypertension) Current Visit: Yes Status: Chronic Assessment and Plan: Patient has not been hypertensive during hospital stay. - To continue on home medications (6) Type 2 diabetes mellitus Current Visit: Yes Status: Chronic Assessment and Plan: - Started on SSI - Diabetic, cardiac diet (7) Lung nodule Current Visit: Yes Status: Chronic Assessment and Plan: Patient has a history of known pulmonary nodule - Elected to have no treatment at this time (8) History of pulmonary embolism Current Visit: No Status: Chronic Assessment and Plan: Patient has a history of DVT/PE CT PE in the ED was negative for PE - Currently anticoagulated on Eliquis (9) Coronary artery disease Current Visit: No Status: Chronic Assessment and Plan: - To continue home medications DVT Prophylaxis: Currently on Eliquis for previous history of DVT/PE - Time Spent with Patient Total time spent is greater than 50% in coordination of care (as documented) at patient's floor/unit and/or counseling patient: less than 15 minutes Plan of Care Discussed with: patient Internal Medicine: Result - Labs CBC & Chem 7: 07/03/19 05:25 07/03/19 05:25 Labs: Short CBC 07/03/19 Range/Units 05:25 WBC 7.5 (4.3-11.1) K/mcL Hgb 11.2 L (11.5-15.4) g/dL Hct 36.7 (35.3-44.9) % Plt Count 211 (140-400) K/mcL Neutrophils # 4.6 (1.6-8.9) K/mcL BMP 07/03/19 05:25 Sodium 139 Potassium 3.7 Chloride 103 Carbon Dioxide 32 H BUN 19 Creatinine 0.86 Glucose 152 H Calcium 9.6 - ABG Interpretation ABG results: ABG ABG pH 7.49 pH Units (7.32-7.45) H 07/02/19 08:53 ABG pCO2 40 mmHg (35-45) 07/02/19 08:53 ABG pO2 63 mmHg (85-104) L 07/02/19 08:53 ABG O2 Saturation 94 % (95-98) L 07/02/19 08:53 - Impressions Impressions Echocardiogram Limited Views 07/03/19 15:40 Impressions: LVEF 35-40%. Normal LV chamber size, wall thickness and function. Global and segmental left ventricular systolic dysfunction. Compared to prior reports, LVEF has decreased. Left Ventricular Wall Motion: Rest Echo Findings The apex, apical inferior, mid inferior, apical anterior, mid anterior, basal anterior, apical septal, mid inferior septal, basal inferior septal, apical lateral, mid anterior lateral, basal anterior lateral, mid anterior septal, mid inferior lateral, basal anterior septal and basal inferior lateral heredia were hypokinetic. The basal inferior wall was akinetic. Findings: Study Quality * Technically adequate exam. ECG Findings * Difficult to determine rhythm. Left Ventricle * LVEF 35-40%. * Normal LV chamber size, wall thickness and function. * Global and segmental left ventricular systolic dysfunction. Aorta * Normally sized aortic root. Pericardium * There is a small pericardial effusion present. Consult Discharge Plan - Plan Referrals: Maddie Morton [Primary Care Provider] - (1) Acute exacerbation of congestive heart failure Qualifiers: Heart failure type: combined systolic and diastolic Qualified Code(s): I50.43 - Acute on chronic combined systolic (congestive) and diastolic (congestive) heart failure (3) Falls Qualifiers: Encounter type: sequela Qualified Code(s): W19.XXXS - Unspecified fall, seq uela (4) COPD (chronic obstructive pulmonary disease) Qualifiers: COPD type: emphysema Emphysema type: unspecified Qualified Code(s): J43.9 - Emphysema, unspecified (5) HTN (hypertension) Qualifiers: Hypertension type: essential hypertension Qualified Code(s): I10 - Essential (primary) hypertension (6) Type 2 diabetes mellitus Qualifiers: Diabetes mellitus longterm insulin use: without longterm use Diabetes me llitus complication status: with circulatory complication Diabetes mellitus complication detail: with peripheral angiopathy without gangrene Qualified Code(s): E11.51 - Type 2 diabetes mellitus with diabetic peripheral angiopathy without gangrene (9) Coronary artery disease Qualifiers: Coronary Disease-Associated Artery/Lesion type: [place] artery [place] vs. transplanted heart: [place] heart Associated angina: with stable angina Qualified Code(s): I25.118 - Atherosclerotic heart disease of [place] coronary artery with other forms of angina pectoris
--- NOTE | 2019-07-03 13:37 | Electrocardiograph Report ---
[place] [id number] Test Date: 2019-07-02 Pat Name: Ilene Costa Department: 112 Room: 2A45 Gender: F [employer] Super[employer]: : [id number] Requested By: Ani Issa Order Number: [id number] Reading MD: Bertrand Babcock Measurements Intervals [place] Rate: 120 P: ME: 0 QRS: 105 QRSD: 114 T: -67 QT: 272 QTc: 344 Interpretive Statements ATRIAL FLUTTER/TACHYCARDIA WITH RAPID VENTRICULAR RESPONSE WITH ABERRANT CONDUCTION OR VENTRICULAR PREMATURE COMPLEXES MARKED RIGHT AXIS DEVIATION Electronically Signed On 07-03-2019 13:35:35 EDT by Bertrand Babcock
[2019-07-03] MEDS: tiZANidine 4 MG TABLET PO PRN (17:05)
[2019-07-03] MEDS: Furosemide 40 MG TABLET PO SCH (17:05)
[2019-07-03] MEDS: traMADol 50 MG TABLET PO PRN (20:28)
[2019-07-04] MEDS: Levalbuterol Neb 0.63 MG/3 ML IH SCH ×4 (04:56→23:06)
[2019-07-04 05:50] LABS: Basophils % 0.5 %; Eosinophils # 0.2 K/mcL (0.0-0.6); Eosinophils % 2.9 %; Hematocrit 35.6 % (35.3-44.9); Hemoglobin 10.8 g/dL (11.5-15.4); Immature Granulocytes % 0.2 % (0-4); Lymphocytes # 2.1 K/mcL (0.6-4.6); Lymphocytes % 35.4 %; Mean Corpuscular HGB Conc 30.3 g/dL (31.6-35.5); Mean Corpuscular Hemoglobin 28.8 pg (28.0-33.3); Mean Corpuscular Volume 94.9 fL (83.0-100.0); Mean Platelet Volume 9.5 fL (9.4-12.4); Monocytes # 0.4 K/mcL (0.0-1.3); Monocytes % 6.4 %; Neutrophils # 3.2 K/mcL (1.6-8.9); Platelet Count 197 K/mcL (140-400); Red Blood Count 3.75 M/mcL (3.82-4.97); Red Cell Distribution Width 21.3 % (11.5-14.5); Segmented Neutrophils % 54.6 %; White Blood Count 5.9 K/mcL (4.3-11.1)
[2019-07-04 06:14] LABS: BUN/Creatinine Ratio 32 (6-26); Blood Urea Nitrogen 28 mg/dL (8-23); Calcium 9.4 mg/dL (8.6-10.3); Carbon Dioxide 27 mEq/L (23-29); Chloride 102 mEq/L (98-107); Glucose 111 mg/dL (70-105); Osmolality,Calculated 296 (280-300); Potassium 4.3 mEq/L (3.5-5.1); Sodium 140 mEq/L (136-145); eGFR For African Americans > 60 (> 60); eGFR For Non-African Americans > 60 (> 60)
[2019-07-04] MEDS: Insulin LISPRO 300 UNITS/3 ML VIAL SQ SCH ×4 (08:00→21:59)
[2019-07-04] MEDS: Apixaban 5 MG TABLET PO SCH (08:00)
[2019-07-04] MEDS: Isosorbide MONOnitrate (24 HR) 60 MG TAB.ER.24H PO SCH (08:01)
[2019-07-04] MEDS: Aspirin 81 MG TAB.CHEW PO SCH (08:01)
[2019-07-04] MEDS: Ranolazine 500 MG TAB.ER.12H PO SCH ×2 (08:01→19:32)
[2019-07-04] MEDS: Furosemide 40 MG TABLET PO SCH (08:01)
[2019-07-04] MEDS: amLODIPine 5 MG TABLET PO SCH (08:01)
[2019-07-04] MEDS: Gabapentin 300 MG CAPSULE PO SCH ×3 (08:01→19:33)
--- NOTE | 2019-07-04 09:52 | Cardiology Consult Note ---
<James Delaney R - Last Filed: 07/04/19 10:30> Date of Encounter: 07/04/19 Time of Encounter: 09:50 Assessment and Plan (1) Cardiomyopathy Current Visit: Yes Status: Acute Limited TTE 07/03/19: LVEF 35-40%. TTE 02/27/19: LVEF 55%, newly reduced. NICMP vs ICMP. Presented A-Fib RVR, now rate controlled. Hx of CAD, most recent PCI 12/2017. LHC 01/24/18: Severe 2V CAD. EF 60%. There is fair quality collateral vessel/vessels from the Distal Circumflex to the Right PDA that are visualized. Stent placed from a prior procedure in the 1st Marginal is is patent. Stent placed from a prior procedure in the Mid LAD is is patent.Patient had successful PTCA/Drug-Eluting Stent placement in the mid Circ. Rt Iliac Artery angiogram performed. 100% Rt External iliac and 100% Rt SFA occlusion seen. Given new CMP and CAD hx, recommend [facility] to r/o ischemic cause. R/B/A discussed. Pt agrees. Had Eliquis this AM. Will hold Eliquis and plan for [facility] tomorrow. Continue BB and ARB. Qualifiers: Cardiomyopathy type: unspecified Qualified Code(s): I42.9 - Cardiomyopathy, unspecified (2) Acute systolic CHF (congestive heart failure), NYHA class 2 Current Visit: Yes Status: Acute Presented with worsening dyspnea. Will obtain CXR. BNP 1483. Currently on PO Lasix 40mg BID. Will change to IV Lasix given CHF exacerbation. Recommend strict I/Os, Na and fluid restriction, daily weights. (3) Atrial fibrillation Current Visit: Yes Status: Chronic Known A-Fib. Presented RVR, rate 112. Currently rate controlled--12 hr tele AVG HR 82. Continue BB. Anticoagulated on Eliquis. Will hold in anticipation of [facility]. Qualifiers: Atrial fibrillation type: unspecified Qualified Code(s): I48.91 - Unspecified atrial fibrillation (4) Coronary artery disease Current Visit: No Status: Chronic Hx PCI, most recent 12/2017 to mid Circ. Continue ASA, Statin, BB, ARB. Previously on Brilinta after PCI. Unclear when Brilinta was stopped, but recently started on Eliquis for chronic PE seen on CTA 02/2019. CTA on admission 07/02 negative for PE. Qualifiers: Coronary Disease-Associated Artery/Lesion type: [place] artery [place] vs. transplanted heart: [place] heart Associated angina: with stable angina Qualified Code(s): I25.118 - Atherosclerotic heart disease of [place] coronary artery with other forms of angina pectoris Discussion w patient/family: The assessment and plan as outlined above was discussed with the patient and/or family members who expressed understanding and agreement. All questions were answered. Thank you for involving us in the care of your patient. Please call with any questions. I will discuss all the above with Dr. Bennett and make changes as necessary. History of Present Illness Consult date: 07/04/19 Consult reason: CMP Chief complaint: dyspnea History of present illness: Ms. Costa is a 68 year old female with PMH of COPD, A-Fib on Eliquis, DVT/PE, diastolic CHF, CAD s/p PCI, HLD, PAD, HTN, DM, who presents with progressive shortness of breath for the past several days and increased bilateral extremity edema. She denies chest pain. BNP 1483. TTE LVEF 35-40%. Global and segmental left ventricular systolic dysfunction. Compared to prior TTE in 02/2019, LVEF has decreased. Cardiology consulted for further recs. Prior CV testing: Limited TTE 07/03/19: LVEF 35-40%. Normal LV chamber size, wall thickness and function. Global and segmental left ventricular systolic dysfunction. Compared to prior reports, LVEF has decreased. TTE 02/27/19: LVEF 55%, mild cLVH, mild segmental LV systolic dysfunction, moderate LVDD, normal RV structure and function. Severely dilated LA, mild MR, moderate phtn. [facility] 01/24/18: There is severe 2V CAD. EF 60%. There is fair quality collateral vessel/vessels from the Distal Circumflex to the Right PDA that are visualized. Stent placed from a prior procedure in the 1st Marginal is is patent. Stent placed from a prior procedure in the Mid LAD is is patent.Patient had successful PTCA/Drug-Eluting Stent placement in the mid Circ. Rt Iliac Artery angiogram performed. 100% Rt External iliac and 100% Rt SFA occlusion seen. Past Med Surg Social Fam HX - Past Medical History Medical history: arthritis, atrial fibrillation, COPD, coronary artery disease, DVT, hyperlipidemia, hypertension, migraine, myocardial infarction, peripheral artery disease Additional medical history: MT with angioplasty, cardiac stents. PE Psychiatric history: anxiety, depression - Past Surgical History Surgical History: cholecystectomy, hysterectomy Additional surgical history: right knee replacement. 4 cardiac stents. 1 renal stent - Social History Smoking Status: Current every day smoker Packs per day: 1 Smokeless Tobacco Status: No Alcohol use: none Drug use: none - Family History Mother Adopted: No Living Status: Hx Family Cardiac Disorders: Yes Hx Family Respiratory Disorders: Yes Hx Family Cancer: No Hx Family GI Disorders: No Hx Family Endocrine Disorder: Yes Hx Family Neuromuscular Disorders: No Hx Family Neurologic Disorders: No Hx Family HEENT Disorders: No Hx Family Autoimmune Disorders: No Father Adopted: No Living Status: Hx Family Cardiac Disorders: Yes Hx Family Respiratory Disorders: No Hx Family Cancer: Yes (Prostate) Hx Family GI Disorders: No Hx Family Endocrine Disorder: Yes (DM) Hx Family Neuromuscular Disorders: No Hx Family Neurologic Disorders: No Hx Family HEENT Disorders: No Hx Family Autoimmune Disorders: No Medications and Allergies Albuterol Neb [Proventil Neb] 2.5 mg IH Q4HR PRN #100 vial.neb 02/15/18 [Rx] Aspirin 81 mg PO DAILY #30 tab.chew 02/15/18 [Rx] Atorvastatin Calcium [Lipitor] 80 mg PO HS #30 tablet 02/15/18 [Rx] Metformin HCl [Glucophage] 1,000 mg PO BID #60 tablet 02/15/18 [Rx] Ranolazine [Ranexa] 500 mg PO BID 30 Days #60 tab.er.12h 02/15/18 [Rx] Metoprolol Tartrate [Lopressor] 25 mg PO BID 02/20/18 [History] Magnesium Oxide [Mag-Oxide Magnesium] 400 mg PO DAILY 02/27/19 [History] Tizanidine HCl 2 mg PO TID PRN 02/27/19 [History] Venlafaxine [Effexor] 75 mg PO BID 02/27/19 [History] Apixaban [Eliquis] 5 mg PO BID #60 tablet 03/04/19 [Rx] Albuterol Sulfate [Ventolin Hfa] 1 puff IH Q6H PRN 06/13/19 [History] Ergocalciferol (VITAMIN D2) [Vitamin D2] 50,000 unit PO TU 06/13/19 [History] Montelukast [Singulair] 10 mg PO DAILY 06/13/19 [History] Amlodipine Besylate 5 mg PO DAILY 30 Days #30 tablet 06/23/19 [Rx] Furosemide [Lasix] 40 mg PO DAILY 30 Days #60 tablet 06/23/19 [Rx] Gabapentin [Neurontin] 300 mg PO TID #90 capsule 06/23/19 [Rx] clonazePAM [Klonopin] 0.5 mg PO TID PRN 4 Days #12 tablet 06/23/19 [Rx] Dicyclomine Hcl [Bentyl] 20 mg PO BID 07/02/19 [History] Isosorbide MONOnitrate (24 HR) [Imdur] 60 mg PO QAM 07/02/19 [History] Losartan Potassium [Cozaar] 50 mg PO BID 07/02/19 [History] Omeprazole [PriLOSEC] 40 mg PO DAILY 07/02/19 [History] Ondansetron HCl 4 mg PO BID PRN 07/02/19 [History] Potassium Chloride [K-Tab ER] 10 meq PO DAILY 07/02/19 [History] Allergy/AdvReac Type Severity Reaction Status Date / Time No Known Allergies Allergy Verified 07/02/19 16:44 All Systems Review: The remainder of the systems were reviewed and are negative - Cardiovascular Cardiovascular: as per HPI, dyspnea at rest, dyspnea on exertion, leg edema - Respiratory Respiratory: dyspnea Physical Examination Vital Signs, Last 4 Hours Temp Pulse Resp BP Pulse Ox 07/04/19 08:10 98 07/04/19 07:25 98.0 F 79 16 118/78 98 Vital Signs Temp Pulse Resp BP Pulse Ox 07/04/19 08:10 98 07/04/19 07:25 98.0 F 79 16 118/78 98 07/04/19 05:45 97.6 F 77 16 115/77 97 07/04/19 04:58 14 96 07/04/19 00:26 97.6 F 78 16 94/62 98 07/03/19 22:32 14 99 07/03/19 21:09 94 07/03/19 20:33 97.7 F 89 16 109/72 94 07/03/19 16:21 98.5 F 87 22 107/73 98 07/03/19 15:35 17 97 07/03/19 12:05 98.0 F 71 17 100/67 96 07/03/19 10:32 17 98 Intake and Output 07/03/19 07/04/19 07/04/19 23:59 07:59 15:59 Output Total 500 / 800 1150 / 1150 Balance -500 / -10.4 -1150 / -1150 Output: Urine 500 / 800 1150 / 1150 Other: Blood Glucose* 236 111 General: Conversant, No Apparent Distress HEENT: Atraumatic, Normocephaly, Mucus Membranes Moist Neck: No JVD, Normal carotid pulses Cardiac: Other (irregularly irregular) Lungs: Other (diminished) Neuro: Alert and responsive, No focal deficits noted Abdomen: Soft, Non-Tender Skin: No rashes noted on visualized skin Musculoskeletal: No Chest Wall Tenderness Extremities: No Clubbing, No Cyanosis, No Edema, Normal Pulses Results 07/04/19 05:05 07/04/19 05:05 Lab Results 07/04/19 07/04/19 07/04/19 05:05 05:05 05:05 WBC 5.9 Hgb 10.8 L Hct 35.6 Plt Count 197 Sodium 140 Potassium 4.3 Chloride 102 Carbon Dioxide 27 BUN 28 H Creatinine 0.88 Glucose 111 H Calcium 9.4 B-Natriuretic Peptide 1483 H Short CBC 07/04/19 Range/Units 05:05 WBC 5.9 (4.3-11.1) K/mcL Hgb 10.8 L (11.5-15.4) g/dL Hct 35.6 (35.3-44.9) % Plt Count 197 (140-400) K/mcL Neutrophils # 3.2 (1.6-8.9) K/mcL BMP 07/04/19 Range/Units 05:05 Sodium 140 (136-145) mEq/L Potassium 4.3 (3.5-5.1) mEq/L Chloride 102 (98-107) mEq/L Carbon Dioxide 27 (23-29) mEq/L BUN 28 H (8-23) mg/dL Creatinine 0.88 (0.60-1.20) mg/dL Glucose 111 H (70-105) mg/dL Calcium 9.4 (8.6-10.3) mg/dL Impressions Echocardiogram Limited Views 07/03/19 15:40 Impressions: LVEF 35-40%. Normal LV chamber size, wall thickness and function. Global and segmental left ventricular systolic dysfunction. Compared to prior reports, LVEF has decreased. Left Ventricular Wall Motion: Rest Echo Findings The apex, apical inferior, mid inferior, apical anterior, mid anterior, basal anterior, apical septal, mid inferior septal, basal inferior septal, apical lateral, mid anterior lateral, basal anterior lateral, mid anterior septal, mid inferior lateral, basal anterior septal and basal inferior lateral heredia were hypokinetic. The basal inferior wall was akinetic. Findings: Study Quality * Technically adequate exam. ECG Findings * Difficult to determine rhythm. Left Ventricle * LVEF 35-40%. * Normal LV chamber size, wall thickness and function. * Global and segmental left ventricular systolic dysfunction. Aorta * Normally sized aortic root. Pericardium * There is a small pericardial effusion present. Active Medications Acetaminophen (Tylenol) 650 mg PO Q6HR PRN PRN Reason: Pain Stop: 01/02/20 10:35 Albuterol Sulfate (Proventil Neb) 2.5 mg IH Q4HR PRN; Protocol PRN Reason: Dyspnea Stop: 01/01/20 17:48 Amlodipine Besylate (Norvasc) 5 mg PO DAILY [facility]; Protocol Stop: 01/02/20 09:01 Last Admin: 07/04/19 08:01 Dose: 5 mg Documented by: Apixaban (Eliquis) 5 mg PO BID [facility]; Protocol Stop: 01/01/20 21:01 Last Admin: 07/04/19 08:00 Dose: 5 mg Documented by: Aspirin (Aspirin) 81 mg PO DAILY [facility] Stop: 01/02/20 09:01 Last Admin: 07/04/19 08:01 Dose: 81 mg Documented by: Atorvastatin Calcium (Lipitor) 80 mg PO HS [facility] Stop: 01/01/20 21:01 Last Admin: 07/03/19 20:28 Dose: 80 mg Documented by: Clonazepam (Klonopin) 0.5 mg PO TID PRN PRN Reason: Anxiety Stop: 01/01/20 17:48 Last Admin: 07/03/19 17:05 Dose: 0.5 mg Documented by: Dextrose/Water (Dextrose 50% (Syg)) 25 ml IVP AD PRN PRN Reason: Hypoglycemia Stop: 01/01/20 08:40 Dicyclomine HCl (Bentyl) 20 mg PO BID [facility] Stop: 01/01/20 21:01 Last Admin: 07/04/19 08:01 Dose: 20 mg Documented by: Furosemide (Lasix) 40 mg PO BIDDIURETIC [facility] Stop: 01/02/20 17:01 Last Admin: 07/04/19 08:01 Dose: 40 mg Documented by: Gabapentin (Neurontin) 300 mg PO TID [facility] Stop: 01/01/20 21:01 Last Admin: 07/04/19 08:01 Dose: 300 mg Documented by: Glucagon (Glucagen) 1 mg IM ONCE PRN PRN Reason: Hypoglycemia Stop: 01/01/20 08:40 Glucose (Gluctose) 15 gm PO ONCE PRN PRN Reason: Hypoglycemia Stop: 01/01/20 08:40 Glucose (Gluctose) 30 gm PO ONCE PRN PRN Reason: Hypoglycemia Stop: 01/01/20 08:40 Dextrose (Dextrose 5%) 1,000 mls @ 100 mls/hr IVC .Q10H PRN PRN Reason: HYPOGLYCEMIA Stop: 01/01/20 08:40 Insulin Human Lispro (Humalog) 0 units SQ HS [facility]; Protocol Stop: 01/01/20 21:01 Last Admin: 07/03/19 20:35 Dose: 3 units Documented by: Insulin Human Lispro (Humalog) 0 units SQ TIDAC [facility]; Protocol Stop: 01/01/20 11:31 Last Admin: 07/04/19 08:00 Dose: Not Given Documented by: Isosorbide Mononitrate (Imdur) 60 mg PO QAM [facility] Stop: 01/02/20 09:01 Last Admin: 07/04/19 08:01 Dose: 60 mg Documented by: Levalbuterol HCl (Xopenex) 0.63 mg IH [id number] [facility] Stop: 01/01/20 10:01 Last Admin: 07/04/19 04:56 Dose: 0.63 mg Documented by: Losartan Potassium (Cozaar) 50 mg PO BID [facility] Stop: 01/01/20 21:01 Last Admin: 07/04/19 08:01 Dose: 50 mg Documented by: Metoprolol Tartrate (Lopressor) 50 mg PO BID [facility] Stop: 01/02/20 21:01 Last Admin: 07/04/19 08:01 Dose: 50 mg Documented by: Naloxone HCl (Narcan) 0.4 mg IVP Q2MPRN PRN PRN Reason: SEE COMMENTS Stop: 01/01/20 08:36 Omeprazole (Prilosec) 40 mg PO DAILY [facility] Stop: 01/02/20 09:01 Last Admin: 07/04/19 08:01 Dose: 40 mg Documented by: Ondansetron HCl (Zofran Odt) 4 mg PO BID PRN PRN Reason: NAUSEA/VOMITING Stop: 01/01/20 21:31 Potassium Chloride (Potassium Chloride) 10 meq PO DAILY [facility] Stop: 01/02/20 09:01 Last Admin: 07/04/19 08:01 Dose: 10 meq Documented by: Ranolazine (Ranexa) 500 mg PO BID [facility] Stop: 01/01/20 21:01 Last Admin: 07/04/19 08:01 Dose: 500 mg Documented by: Tizanidine HCl (Zanaflex) 2 mg PO TID PRN PRN Reason: MUSCLE SPASMS Stop: 01/01/20 21:32 Last Admin: 07/03/19 17:05 Dose: 2 mg Documented by: Tramadol HCl (Ultram) 50 mg PO TID PRN PRN Reason: Pain Stop: 01/02/20 20:18 Last Admin: 07/03/19 20:28 Dose: 50 mg Documented by: Venlafaxine HCl (Effexor) 75 mg PO BID [facility] Stop: 01/01/20 21:01 Last Admin: 07/04/19 08:01 Dose: 75 mg Documented by: - Imaging and Cardiology Echo: report reviewed - EKG Interpretation EKG results cardiology: personally reviewed (A-Fib RVR rate 112), other (12 hr tele AVG HR 82, A-Fib) Consult Discharge Plan - Plan Referrals: Maddie Morton [Primary Care Provider] - <Gerardo Bennett - Last Filed: 07/04/19 20:15> Date of Encounter: 07/04/19 - Attending Attestation Patient was seen and evaluated independently by me. Findings, assessment and plan were discussed at length with patient, questions answered. Agree with nurse practitioner's/resident's documentation. Addition as follows, 68yoCF ho CAD GO-LAD/LCx/OM (last GO-LCx )Afib on eliquis, PAD, PE, DM, HTN. P/w CRANE, edema. Imp ADHF, Afib RVR. Improving after diuresis. TTE new EF reduction 35-40% from 55% 4 months ago. Trop neg. Still on NC 5-6L. No ASHLIE or bleeding. A: ADHF, mild-moderate fluid overload HFrEF, new, NYHA III, ICMP vs NICMP, Persistent Afib, rate ctr ok, C score 6 on eliquis PAD Ho PE P: lasix for I/O 0.5-1L/d till back to baseline wt or Bun/Cr up trending c/w BB, ARB, may need add aldactone plan LHC if able to lie flat am and NC2-3L, hold eliquis for LHC if non-obstructive CAD, may need Holter r/o TCMP Gerardo Bennett MD, PhD Assessment and Plan Discussion w patient/family: The assessment and plan as outlined above was discussed with the patient and/or family members who expressed understanding and agreement. All questions were answered. Thank you for involving us in the care of your patient. Please call with any questions. History of Present Illness History of present illness: Ms. Costa is a 68 year old female All Systems Review: The remainder of the systems were reviewed and are negative Physical Examination Vital Signs, Last 4 Hours Temp Pulse Resp BP Pulse Ox 07/04/19 19:46 98 07/04/19 19:05 97.4 F L 90 20 98/72 98 Results 07/04/19 05:05 07/04/19 05:05 Lab Results 07/04/19 07/04/19 07/04/19 05:05 05:05 05:05 WBC 5.9 Hgb 10.8 L Hct 35.6 Plt Count 197 Sodium 140 Potassium 4.3 Chloride 102 Carbon Dioxide 27 BUN 28 H Creatinine 0.88 Glucose 111 H Calcium 9.4 B-Natriuretic Peptide 1483 H
--- NOTE | 2019-07-04 11:39 | Internal Med Progress Note ---
Hospitalist Progress Note - Encounter Date of Encounter: 07/04/19 Time of Encounter: 16:02 - Subjective Interval History: Patient was seen and examined at bedside. No acute complaints overnight. Bilateral LE edema has significantly improved, but still has some tenderness to palpation around the ankles. Denies fevers, chills, headache, chest pain, shortness of breath, cough, palpitations, dental pain, N/V/D/C, melena, hematochezia, hemoptysis, dysuria, urinary frequency/urgency. - Exam Vitals: Temp Pulse Resp BP Pulse Ox 98.0 F 79 16 118/78 98 07/04/19 07:25 07/04/19 07:25 07/04/19 07:25 07/04/19 07:25 07/04/19 08:10 Exam: GEN: No acute distress, well appearing, conversant. HEAD: Normocephalic, atraumatic. EYES: PERRL, EOMI, anicteric. ENT: MMM. oropharynx without erythema or drainage. NECK: Supple. No LAD. No stiffness or restricted ROM. No tracheal deviation. HEART: Irregular rate and rhythm, normal S1/S2, no m/r/g. LUNGS: CTAB, good air exchange bilaterally. No wheezing, rubs, or rhonchi. ABDO: Soft, nontender, nondistended with active bowel sounds. : No suprapubic tenderness or CVA tenderness. BACK: No obvious stepoffs or deformities. EXT: Without cyanosis, clubbing. Nonpitting edema of bilateral lower ex tremities. SKIN: Warm and dry without any rash. NEURO: Grossly nonfocal. Alert and oriented, moving all 4 extremities. CN not formally tested but appear grossly intact. PSYCH: Normal affect, no depressed or anxious mood. - Assessment and Plan (1) Acute exacerbation of CHF (congestive heart failure) Current Visit: Yes Status: Acute Assessment and Plan: - Presented to ED with SOB, fluid overload consistent with CHF exacerbation. Potential etiologies include atrial fibrillation with RVR, medication noncompliance. BNP 2690 at admission, negative EKG, negative troponins. CT angio: No PE, fluid overload with bilateral pleural effusions and interstitial edema. In ED, received 500 mL and as, DuoNeb, steroids, 40 g of Lasix - Currently admits to improvement of SOB on 3.5L, improved bilateral Le edema which are marbleizing machine tender to palpation around ankles. Denies chest pain, pal pitations, headache, cough - Echocardiogram 07/03: EF 3540%, left ventricular systolic dysfunction Plan: - Cardio recs: Given new CMP and CAD hx, LHC to r/o ischemic cause. Hold Eliquis and plan for LHC tomorrow. Continue BB and ARB. - Continue Lasix 40 mg PO BID - Repleted potassium, magnesium as needed due to diuresis - Levalbuterol q6 for SOB - Strict I/Os, Na and fluid restriction, daily weights (2) Atrial fibrillation with RVR Current Visit: Yes Status: Acute Assessment and Plan: - Patient presented with atrial fibrillation with RVR. - Currently stable. Denies chest pain, palpitations - continue metoprolol 50 mg PO BID - Cardio recs: Continue BB. Anticoagulated on Eliquis. Will hold in anticipation of LHC. (3) Falls Current Visit: Yes Status: Acute Assessment and Plan: - Patient reported falling prior to admission. Uncertain if she had head trauma or loss of consciousness. - CT head w/o showed: No acute intracranial abnormality, chronic microvascular ischemic changes in the white matter - Currently denies headache, change in altered mental status - Falls risk - PT/OT consulted, pending recs (4) COPD (chronic obstructive pulmonary disease) Current Visit: Yes Status: Acute Assessment and Plan: - Was hypoxic upon arrival. However given signs of fluid overload, most likely symptoms due to CHF exacerbation. - Currently admits to shortness of breath much improved than at admission - 98% on 3.5 L nasal cannula. Claims that home O2 requirement is 2.5 L. - Titrate oxygen requirement down to home requirement and see if she tolerates - Continue to monitor vitals - smoking cessation counseling (5) Hypertension Current Visit: Yes Status: Acute Assessment and Plan: - Was hypertensive previously, resolved. - Denies chest pain, palpitations, headache - Continue on home medications (6) Type 2 diabetes mellitus Current Visit: Yes Status: Acute Assessment and Plan: - Started on sliding scale insulin - Diabetic, cardiac diet (7) Lung nodule Current Visit: Yes Status: Acute Assessment and Plan: Patient has a history of known pulmonary nodule - Elected to have no treatment at this time - Counseled on smoking cessation (8) History of pulmonary embolism Current Visit: Yes Status: Acute Assessment and Plan: - Patient has a history of DVT/PE - CT ANGIOGRAM 07/03: negative for PE - Currently anticoagulated on Eliquis - currently being held [facility] tomorrow (9) Coronary artery disease Current Visit: Yes Status: Acute Assessment and Plan: Continue home medications DVT Prophylaxis: Currently on Eliquis for previous history of DVT/PE - currently being held for [facility] tomorrow - Time Spent with Patient Total time spent is greater than 50% in coordination of care (as documented) at patient's floor/unit and/or counseling patient: Internal Medicine: Result - Labs CBC & Chem 7: 07/04/19 05:05 07/04/19 05:05 Labs: Short CBC 07/04/19 Range/Units 05:05 WBC 5.9 (4.3-11.1) K/mcL Hgb 10.8 L (11.5-15.4) g/dL Hct 35.6 (35.3-44.9) % Plt Count 197 (140-400) K/mcL Neutrophils # 3.2 (1.6-8.9) K/mcL BMP 07/04/19 05:05 Sodium 140 Potassium 4.3 Chloride 102 Carbon Dioxide 27 BUN 28 H Creatinine 0.88 Glucose 111 H Calcium 9.4 - ABG Interpretation ABG results: ABG ABG pH 7.49 pH Units (7.32-7.45) H 07/02/19 08:53 ABG pCO2 40 mmHg (35-45) 07/02/19 08:53 ABG pO2 63 mmHg (85-104) L 07/02/19 08:53 ABG O2 Saturation 94 % (95-98) L 07/02/19 08:53 Consult Discharge Plan - Plan Referrals: Maddie Morton [Primary Care Provider] -
[2019-07-04] MEDS ORDERED: Furosemide 40 MG/4 ML VIAL IVP SCH (17:00)
[2019-07-05] MEDS: tiZANidine 4 MG TABLET PO PRN (00:07)
[2019-07-05] MEDS: clonazePAM 1 MG TABLET PO PRN ×2 (00:09→17:50)
[2019-07-05] MEDS: Levalbuterol Neb 0.63 MG/3 ML IH SCH ×4 (04:07→22:33)
[2019-07-05 05:47] LABS: Basophils % 0.6 %; Eosinophils # 0.1 K/mcL (0.0-0.6); Eosinophils % 2.7 %; Hematocrit 35.4 % (35.3-44.9); Hemoglobin 10.6 g/dL (11.5-15.4); Immature Granulocytes % 0.2 % (0-4); Lymphocytes # 1.7 K/mcL (0.6-4.6); Lymphocytes % 35.7 %; Mean Corpuscular HGB Conc 29.9 g/dL (31.6-35.5); Mean Corpuscular Hemoglobin 28.9 pg (28.0-33.3); Mean Corpuscular Volume 96.5 fL (83.0-100.0); Mean Platelet Volume 9.2 fL (9.4-12.4); Monocytes # 0.4 K/mcL (0.0-1.3); Monocytes % 7.9 %; Neutrophils # 2.5 K/mcL (1.6-8.9); Platelet Count 185 K/mcL (140-400); Red Blood Count 3.67 M/mcL (3.82-4.97); Red Cell Distribution Width 20.5 % (11.5-14.5); Segmented Neutrophils % 52.9 %; White Blood Count 4.8 K/mcL (4.3-11.1)
[2019-07-05 05:56] LABS: INR 1.6; Prothrombin Time 17.7 Seconds (9.4-12.1)
[2019-07-05 06:07] LABS: BUN/Creatinine Ratio 31 (6-26); Blood Urea Nitrogen 27 mg/dL (8-23); Calcium 9.1 mg/dL (8.6-10.3); Carbon Dioxide 29 mEq/L (23-29); Chloride 103 mEq/L (98-107); Glucose 106 mg/dL (70-105); Osmolality,Calculated 300 (280-300); Potassium 4.3 mEq/L (3.5-5.1); Sodium 142 mEq/L (136-145); eGFR For African Americans > 60 (> 60); eGFR For Non-African Americans > 60 (> 60)
--- NOTE | 2019-07-05 09:07 | Internal Med Progress Note ---
Hospitalist Progress Note - Encounter Date of Encounter: 07/05/19 Time of Encounter: 09:07 - Subjective Interval History: Patient was seen and examined at bedside. No acute events overnight. Patient does not have any complaints this morning. Denies any chest pain, shortness of breath, palpitations, abdominal pain, nausea, vomiting, fevers, chills. Of note, nasal cannula was out of place however patient was still sleeping comfortably. Patient aware and amenable to [facility] later today. Has been urinating frequently on Lasix. - Exam Vitals: Temp Pulse Resp BP Pulse Ox 97.6 F 76 18 107/68 100 07/05/19 06:56 07/05/19 06:56 07/05/19 06:56 07/05/19 06:56 07/05/19 06:56 Exam: GEN: No acute distress, well appearing, conversant. HEAD: Normocephalic, atraumatic. EYES: PERRL, EOMI, anicteric. ENT: MMM. oropharynx without erythema or drainage. NECK: Supple. No LAD. No stiffness or restricted ROM. No tracheal deviation. HEART: Irregular rate and rhythm, normal S1/S2, no m/r/g. LUNGS: CTAB, good air exchange bilaterally. No wheezing, rubs, or rhonchi. ABDO: Soft, nontender, nondistended with active bowel sounds. : No suprapubic tenderness or CVA tenderness. BACK: No obvious stepoffs or deformities. EXT: Without cyanosis, clubbing. Nonpitting edema of bilateral lower extremities. SKIN: Warm and dry without any rash. NEURO: Grossly nonfocal. Alert and oriented, moving all 4 extremities. CN not formally tested but appear grossly intact. PSYCH: Normal affect, no depressed or anxious mood. - Assessment and Plan (1) Acute exacerbation of congestive heart failure Current Visit: Yes Status: Acute Assessment and Plan: Patient presented with shortness of breath and fluid overload consistent with CHF exacerbation. Potential etiologies include atrial fibrillation with RVR, medication noncompliance. Notable to have a BNP of over 2000 with normal EKG and troponins. CT angio showed fluid overload, neg PE In the ED, was given 500 mL normal saline, DuoNeb, steroids, 40 g of Lasix Plan: - Echo 07/03 showed a reduced LV EF 35-40% with global and segmental left ventricular systolic dysfunction - [facility] 07/05 showed severe 2 vessel CA, PTCA performed; recommended med optimization & aggressive risk factor management - Lasix 40mg IV BID discontinued, started Lasix 40 mg PO BID - Repleted potassium, magnesium due to diuresis - Strict I/Os, Na and fluid restriction, daily weights - Levalbuterol q6 for SOB - Continue metoprolol after [facility]; hold lasix, lisinopril, losartan, imdur until assess BP tomorrow (2) Atrial fibrillation with RVR Current Visit: Yes Status: Acute Assessment and Plan: Patient presented with atrial fibrillation with RVR. Currently stable. - Discontinued Cardizem drip - Continue on metoprolol 50 mg PO BID (3) Falls Current Visit: Yes Status: Acute Assessment and Plan: Patient reported falling prior to admission. Uncertain if she had head trauma or loss of consciousness. - CT head w/o showed: No acute intracranial abnormality, chronic microvascular ischemic changes in the white matter - Falls risk - PT/OT consult (4) COPD (chronic obstructive pulmonary disease) Current Visit: Yes Status: Chronic Assessment and Plan: Was hypoxic upon arrival. However given signs of fluid overload, most likely symptoms due to CHF exacerbation. Patient says she is typically on 2 to 2.5 L at home. - Currently on 5 L nasal cannula, will titrate down - Cont to monitor vitals, O2 sat - To provide smoking cessation counseling (5) HTN (hypertension) Current Visit: Yes Status: Chronic Assessment and Plan: - Was hypertensive previously, resolved. - Denies chest pain, palpitations, headache - Continue metoprolol after [facility]; hold lasix, lisinopril, losartan, imdur until assess BP tomorrow (6) Type 2 diabetes mellitus Current Visit: Yes Status: Chronic Assessment and Plan: - Started on SSI - Diabetic, cardiac diet (7) Lung nodule Current Visit: Yes Status: Chronic Assessment and Plan: Patient has a history of known pulmonary nodule - Elected to have no treatment at this time (8) History of pulmonary embolism Current Visit: No Status: Chronic Assessment and Plan: Patient has a history of DVT/PE CT PE in the ED was negative for PE - Currently anticoagulated on Eliquis - Holding AC after [facility] for now (9) Coronary artery disease Current Visit: No Status: Chronic Assessment and Plan: - To continue home medications - Will optimize meds - Aggressive risk factor management DVT Prophylaxis: Currently on Eliquis for previous history of DVT/PE - currently being held after [facility] Will resume tomorrow. - Time Spent with Patient Total time spent is greater than 50% in coordination of care (as documented) at patient's floor/unit and/or counseling patient: less than 15 minutes Plan of Care Discussed with: patient Internal Medicine: Result - Labs CBC & Chem 7: 07/05/19 05:34 07/05/19 05:34 Labs: Short CBC 07/05/19 Range/Units 05:34 WBC 4.8 (4.3-11.1) K/mcL Hgb 10.6 L (11.5-15.4) g/dL Hct 35.4 (35.3-44.9) % Plt Count 185 (140-400) K/mcL Neutrophils # 2.5 (1.6-8.9) K/mcL BMP 07/05/19 05:34 Sodium 142 Potassium 4.3 Chloride 103 Carbon Dioxide 29 BUN 27 H Creatinine 0.87 Glucose 106 H Calcium 9.1 - ABG Interpretation ABG results: ABG ABG pH 7.49 pH Units (7.32-7.45) H 07/02/19 08:53 ABG pCO2 40 mmHg (35-45) 07/02/19 08:53 ABG pO2 63 mmHg (85-104) L 07/02/19 08:53 ABG O2 Saturation 94 % (95-98) L 07/02/19 08:53 PT/INR, D-dimer PT 17.7 Seconds (9.4-12.1) H 07/05/19 05:34 - Impressions Impressions Chest X-Ray 07/04/19 10:31 IMPRESSION: 1. Small bilateral effusions. 2. Cardiomegaly. 3. COPD. D/ /04/2019 13:33:54 Fang Jara MD / luis Interpreting Provider: Fang Jara MD Consult Discharge Plan - Plan Referrals: Maddie Morton [Primary Care Provider] - 07/16/19 1:15 pm Sony Avery [Partnered Physician] - (Office will call patient at home with follow up appointment) (1) Acute exacerbation of congestive heart failure Qualifiers: Heart failure type: combined systolic and diastolic Qualified Code(s): I50.43 - Acute on chronic combined systolic (congestive) and diastolic (congestive) heart failure (3) Falls Qualifiers: Encounter type: sequela Qualified Code(s): W19.XXXS - Unspecified fall, sequela (4) COPD (chronic obstructive pulmonary disease) Qualifiers: COPD type: emphysema Emphysema type: unspecified Qualified Code(s): J43.9 - Emphysema, unspecified (5) HTN (hypertension) Qualifiers: Hypertension type: essential hypertension Qualified Code(s): I10 - Essential (primary) hypertension (6) Type 2 diabetes mellitus Qualifiers: Diabetes mellitus terminal superintendent insulin use: without alf use Diabetes mellitus complication status: with circulatory complication Diabetes mellitus complication detail: with peripheral angiopathy without gangrene Qualified Code(s): E11.51 - Type 2 diabetes mellitus with diabetic peripheral angiopathy without gangrene (9) Coronary artery disease Qualifiers: Coronary Disease-Associated Artery/Lesion type: [place] artery [place] vs. transplanted heart: [place] heart Associated angina: with stable angina Qualified Code(s): I25.118 - Atherosclerotic heart disease of [place] coronary artery with other forms of angina pectoris
[2019-07-05] MEDS: Aspirin 81 MG TAB.CHEW PO SCH (09:55)
[2019-07-05] MEDS: Gabapentin 300 MG CAPSULE PO SCH ×3 (09:55→22:15)
[2019-07-05] MEDS: Ranolazine 500 MG TAB.ER.12H PO SCH ×2 (09:55→22:15)
[2019-07-05] MEDS: Insulin LISPRO 300 UNITS/3 ML VIAL SQ SCH ×4 (09:56→22:14)
[2019-07-05] MEDS: Isosorbide MONOnitrate (24 HR) 60 MG TAB.ER.24H PO SCH (09:56)
[2019-07-05] MEDS ORDERED: *HR* Heparin 10,000 UNIT/10 ML VIAL ONE (10:22)
[2019-07-05] MEDS ORDERED: ISOVUE-370 200 ML INFUS..BTL ONE (10:22)
[2019-07-05] MEDS ORDERED: Heparin 1,000 UNITS/500 mL 500 ML ONE (10:22)
[2019-07-05] MEDS ORDERED: 0.9 % Sodium Chloride 1,000 ML ONE (10:22)
[2019-07-05] MEDS ORDERED: Nitroglycerin 1,000 MCG/10 ML VIAL IV ONE (10:23)
[2019-07-05] MEDS ORDERED: *HR* FentaNYL (PF) 100 MCG/2 ML VIAL ONE (11:49)
[2019-07-05] MEDS ORDERED: *HR* Midazolam HCl 2 MG/2 ML VIAL ONE (11:49)
--- NOTE | 2019-07-05 11:49 | History & Physical Report ---
Date of Encounter: 07/05/19 Time of Encounter: 11:49 24 Hour HP Update - Instructions Instructions: If the History and Physical is less than 30 days old and was completed prior to A.M. admission and or procedure and has NOT been updated on calendar day of procedure please complete this update prior to performing procedure. - Update Patient reports changes in Medical Condition: No Changes in examination, assessment, or condition: No Changes in Medication: No Preop tests/diagnostics Reviewed: Yes Surgery Remains Indicated: Yes Consent for Planned Operative Procedure(s) Verified: Yes
[2019-07-05] MEDS ORDERED: Tirofiban 12.5 MG/250ML 12.5 MG/250 ML BAG ONE (12:13)
[2019-07-05] MEDS ORDERED: Tirofiban 12.5 MG/250ML 12.5 MG/250 ML BAG IVC SCH (13:00)
--- NOTE | 2019-07-05 13:17 | Invasive Diagnostic Lab Proc ---
Name: Ilene Costa Date of Study: 07/05/2019 Date: 1950 Ht: 66.9in Medical Record#: [id number] Age: 68 Wt: 123.46lb Gender: Female BSA: 1.65 Order #: [id number] BMI: 19.38 Physicians Procedure Physician: Sony Avery MD Referring MD: Referring MD: Staff Name Position Time In MerrillRuthie RT (R) orientee with monitor 11:41 AM Katarina Miranda RN Monitor 11:41 AM Issa Rob RN Director Of Psychology 11:42 AM Bradford Walker RT (R) Scrub 11:42 AM Indications Indication Cardiomyopathy Procedures Performed Procedure L HRT ARTERY/VENTRICLE ANGIO PRQ CARDIAC ANGIOPLAST 1 ART PRQ CARDIAC ANGIO ADDL ART Pre-Procedure Checklist Informed consent is complete signed and on chart. H&P is on chart. ID band is on and ID verified with patient. Patient NPO for procedure The procedure was described for the patient and questions were answered. Blood Pressure: 107/68 ECG is on chart. Rhythm: Atrial Fibrillation Plan of Care Patient will tolerate the procedure without complications. Adequate level of comfort will be maintained. Hemodynamics will remain stable Patient will recover from procedure without complications. Respiratory function will be maintained. Cardiac rhythm will remain stable. Patient temperature will be maintained. Patient and/or family have verbalized understanding of the procedure. Patient Education Chief Complaint/Reason for Test: Cardiac Cath Developmental Category: Geriatric (65+ years) Developmentally Appropriate for Age: Yes Learning Barriers: None Education Needs: Procedure Education Method: Verbal Information Taught: Cardiac Cath Educational Evaluation: Able to repeat information Intravenous Access Time IV Size Location DC'd Fluid/Drip Rate Units RN 20g 1 /" Patent On Arrival 0.9NaCl 25 ml/hr Issa Rob RN Allergies NKA Vital Signs Time BP (mmHg) HR (bpm) O2 Sat. RR (bpm) LOC 107 / 68 76 100 % 16 5 = Fully awake and oriented or at pre-proc level 11:50 AM / % 5 = Fully awake and oriented or at pre-proc level 11:50 AM / % 4 = Oriented but drowsy 12:20 PM 121 / 83 86 100 % 15 12:25 PM 108 / 81 83 96 % 14 12:30 PM 118 / 82 83 96 % 14 12:35 PM 120 / 91 76 97 % 14 12:40 PM 119 / 79 85 98 % 15 11:50 AM 118 / 89 94 % 17 11:55 AM 128 / 95 90 99 % 17 12:00 PM 122 / 97 94 99 % 17 12:05 PM 122 / 90 77 100 % 17 12:10 PM 114 / 89 90 100 % 16 12:15 PM 123 / 87 100 99 % 14 12:05 PM / % 4 = Oriented but drowsy 12:20 PM / % 4 = Oriented but drowsy Procedural Medications Time Medication Dose Units Method Given By 11:49 AM Oxygen 2 L/min nasal cannula Issa Rob RN 11:52 AM Versed 1 mg Intravenous Issa Rob RN 11:52 AM Fentanyl 25 mcg Intravenous Issa Rob RN 12:01 PM Fentanyl 25 mcg Intravenous Issa Rob RN 12:02 PM Lidocaine 2% 7 ml Subcutaneous Sony Avery MD 12:13 PM Heparin 2000 units Intravenous Issa Rob RN 12:13 PM Aggrastat Bolus: 29 ml Intravenous Issa Rob RN 12:14 PM Aggrastat 12.5mg/250ml 5.25 ml/hr Intravenous Issa Rob RN 12:45 PM Heparin 1000 units Intravenous Issa Rob RN 12:48 PM Plavix 150 mg Orally Issa Rob RN ASA Classification: CLASS II- Mild systemic disease (i.e. well-controlled diabetes, hypertension, asthma, cigarette smoking) Deon Score Preprocedure Postprocedure Activity 2- Moves 4 extremities sustained head lift Activity Circulation 2- SBP +/= 20 points of pre-anesthetic level Circulation Consciousness 2- Awake and alert oriented x 3 Consciousness O2 Saturation 2- Able to maintain O2 satruation of 92% on room air O2 Saturation Respiratory 2- Able to deep breathe and cough well Respiratory Total Score 10 Total Score Contrast Agent: Isovue Diagnostic Contrast: 85 ml Total Contrast: 85 ml Fluoro Dose: 30 mGy Activated Clotting Time Time Seconds to Clot 12:21 PM 235 12:49 PM 168 Procedure Log Time Note Enter By 11:41 AM Pt arrived to yard labor supervisor 2 at 11:41 jerica 11:41 AM Patient charges- Angio tray pack, Navilyst 3mm J, Pulse Oximetry and ACIST tubing and transducer [facility] 11:41 AM Ruthie Merrill RT (R) Position: orientee with monitor Time in: 11:41 [facility] 11:42 AM Katarina Miranda RN Position: Monitor Time in: : [facility] 11:42 AM Issa Rob RN Position: Director Of Psychology Time in: : [facility] :42 AM Bradford Walker (R) Position: Scrub Time in: : [facility] 11:48 AM Physician arrived 11:48 [facility] 11:48 AM Meet and greet completed [facility] :48 AM Sign in performed according to hospital policy. Informed consent was obtained. [facility] :48 Procedure start :48 [facility] :49 AM Hair removed from procedure site in procedure lab using clippers. Bilateral groin prepped with Chloraprep by Katarina Miranda RN, then patient was draped. Skin intact. [facility] :49 AM Time: 11:49 Oxygen on at 2 L/min per nasal cannula by Issa Rob RN [facility] 11:49 AM CathStat 11:49 AM Vitals capture started with the following parameters, Patient=Adult, Interval=5 min, Initial Hdezgbfj=361 mmHg, Deflation Rate=3 mmHg, Cuff placed on Right Arm 11:50 AM Time: 11:49 Patient comfortable and pain free: Yes [facility] 11:50 AM Time: 11:50LOC: 5 = Fully awake and oriented or at pre-proc level [facility] 11:50 AM HR=94 bpm, NWHA=344/89 mmhg, Resp=17 B/min 11:50 AM Recorded ECG: HR=89 Condition=Condition 1 11:52 AM Time: 11:52 Versed 1 mg Intravenous Given by Issa Rob RN [facility] :52 AM Time: 11:52 Fentanyl 25 mcg Intravenous Given by Issa Rob RN [facility] 11:52 AM ASA Class CLASS II- Mild systemic disease (i.e. well-controlled diabetes, hypertension, asthma, cigarette smoking) [facility] 11:53 Pressure channel 1 zeroed. 11:55 AM HR=90 bpm, CFFW=208/95 mmhg, SpO2=99 %, Resp=17 B/min 12:00 PM HR=94 bpm, EKAR=389/97 mmhg, SpO2=99.0 %, Resp=17 B/min 12:00 PM Time out was performed according to hospital policy. Conscious sedation and anesthesia was achieved (see medication log with in this report above) [facility] 12:01 PM Time: 12:01 Fentanyl 25 mcg Intravenous Given [facility] 12:02 PM Time: 12:02 7 ml Lidocaine 2% to left groin Subcutaneous Given by Sony Avery MD [facility] 12:04 PM Micro-Introducer Kit utilized for sheath placement [facility] 12:05 PM Time: 11:50 Patient comfortable and pain free: Yes [facility] 12:05 PM Time: 11:50LOC: 4 = Oriented but drowsy [facility] 12:05 PM HR=77 bpm, PRTA=563/90 mmhg, BaE8=425.0 %, Resp=17 B/min 12:05 PM hand injection [address] Avery [facility] 12:07 PM Access obtained by percutaneous puncture. 5Fr 10cm Terumo [place] sheath placed in left Femoral artery. [id number] [facility] 12:07 PM 0.035 145cm Navilyst 3mmJ wire [id number] [facility] 12:07 PM 5Fr FR 4 catheter inserted over the wire [facility] 12:08 PM RCA angiography performed in multiple views. [facility] 12:08 PM Recorded Pressure: Ao, HR=82, Condition=Condition 1 (Aorta) Ao 112/86/99 12:09 PM 0.035 260cm Navilyst 3mmJ wire [id number] [facility] 12:09 PM Catheter removed [facility] 12:09 PM 5Fr FL 4 catheter inserted over the wire [facility] 12:10 PM HR=90 bpm, XWVN=954/89 mmhg, WtQ1=329.0 %, Resp=16 B/min 12:10 PM Recorded Pressure: Ao, HR=84, Condition=Condition 1 (Aorta) Ao 107/82/94 12:10 PM LCA angiography performed in multiple views. [facility] 12:11 PM Catheter removed [facility] 12:12 PM Sheath exchanged for a 6 Fr 11 cm Cordis Mana sheath [id number] [facility] 12:13 PM Time: 12:13 Heparin 2000 units Intravenous Given by Issa Rob RN jer[place] 12:13 PM Time: 12:13 Aggrastat Bolus: 29 ml Intravenous Given by Issa Rob RN Browne pump [facility] 12:14 PM Time: 12:14 Aggrastat 12.5mg/250ml 5.25 ml/hr Intravenous Given by Issa Rob RN Browne pump [facility] 12:14 PM 6Fr XB3.5 Cordis guide catheter was used to cannulate the PCI vessel successfully. reused? No [facility] 12:15 PM wire removed [facility] 12:15 PM JW=194 bpm, VKVA=561/87 mmhg, SpO2=99.0 %, Resp=14 B/min 12:15 PM [facility]ation [facility]. [facility] 12[facility]17 PM ACT drawn [facility] 12:17 PM Recorded Pressure: Ao, HR=85, Condition=Condition 1 (Aorta) Ao 116/76/92 12:18 PM .014 BMW Avant 190cm guide wire across target lesion- successful. reused? No placed in circ [facility] 12:20 PM Time: 12:05LOC: 4 = Oriented but drowsy [facility] 12:20 PM Time: 12:05 Patient comfortable and pain free: Yes [facility] 12:20 PM .014 [employer] Avant 190cm guide wire across target lesion- successful. reused? No placed in OM [facility] 12:20 PM HR=86 bpm, ADSY=583/83 mmhg, EfA6=242.0 %, Resp=15 B/min 12:21 PM 2.5 mm x 12mm NC Emerge balloon across target lesion- successful. reused? No inflated in OM [facility] 12:21 PM At 12:21 the ACT was 235 seconds. [facility] 12:22 PM Balloon inflated @ 16 dk for 6 seconds [facility] 12:23 PM Balloon catheter removed intact. [facility] 12:24 PM 2.0 mm x 8mm NC Emerge balloon across target lesion- successful. reused? No placed in distal circ [facility] 12:25 PM Balloon inflated @ 12 dk for 6 seconds [facility] 12:25 PM HR=83 bpm, ECVA=349/81 mmhg, SpO2=96.0 %, Resp=14 B/min 12:25 PM Balloon inflated @ 16 dk for 16 seconds [place] 12:26 PM Balloon inflated @ 16 dk for 11 seconds [facility] 12:26 PM Balloon inflated @ 18 dk for 16 seconds [facility] 12:27 PM Balloon catheter removed intact. [place] 12:28 PM Recorded Pressure: Ao, HR=92, Condition=Condition 1 (Aorta) Ao 118/83/99 12:28 PM 2.5 x 12 NC Emerge reinserted in OM [facility] 12:29 PM Balloon inflated @ 18 dk for 9 seconds [place] 12:30 PM Balloon catheter removed intact. [place] 12:30 PM HR=83 bpm, DQOV=929/82 mmhg, SpO2=96 %, Resp=14 B/min 12:30 PM reinserting 2.5 x 12 NC Emerge [facility] circ [facility] 12:32 PM Balloon inflated @ 14 dk for 5 seconds [place] 12:32 PM Balloon inflated @ 16 dk for 13 seconds [place] 12:32 PM Balloon catheter removed intact. [place] 12:33 PM reinserted 2.5 x 12 NC Emerge to be placed in OM. [facility] 12:35 PM Time: 12:20 Patient comfortable and pain free: Yes [facility] 12:35 PM Time: 12:20LOC: 4 = Oriented but drowsy [facility] 12:35 PM HR=76 bpm, OCNQ=507/91 mmhg, SpO2=97.0 %, Resp=14 B/min 12:35 PM Balloon inflated @ 18 dk for 30 seconds [facility] 12:36 PM removed balloon, guidewire and catheter [facility] 12:37 PM 5Fr Pigtail [facility] Catheter crossed the aortic valve and was selectively placed in the left ventricle. Pressures recorded on pullback for left heart catheterization. [facility] 12:37 PM wire removed [facility] 12:37 PM Recorded Pressure: LV, HR=94, Condition=Condition 1 (Left Ventricle) LV 105/14/46 12:38 PM Recorded Pressure: LV, Ao, HR=82, Condition=Condition 1 (Left Ventricle) LV 110/10/12, (Aorta) Ao 118/66/90 12:38 PM Catheter removed [facility] 12:38 PM wire removed [facility] 12:38 PM Procedure completed at 12:38 07/05/2019 [facility] 12:39 PM ACT drawn. [facility] 12:40 PM HR=85 bpm, ALOS=633/79 mmhg, SpO2=98 %, Resp=15 B/min 12:41 PM Did you address NEERU flow and Dominance? YesCoronary Dominance: right [facility] 12:43 PM At 12:49 the ACT was 168 seconds. [facility] 12:45 PM Sign out completed: Radiation Dose 220.97 mGy, 30.4 Gy/cm2 Fluoro Time: 12.8 Isovue 370 - 200ml contrast 85 ml given by Sony Avery MD. Complications: None. 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 Sedation minutes 46. Cardiac Rehab Consult needed: Yes. Confirmed administered medications: Yes [facility] 12:45 PM Time: 12:45 Heparin 1000 units Intravenous Given by Issa Rob RN [facility] 12:46 PM Isovue 370 - 200ml,1 Bottle(s) used. [facility] 12:46 PM Sheath left in place to be pulled on floor/holding area [facility] 12:46 PM Estimated Blood Loss: minimal [facility] 12:46 PM Post ECG Atrial Fibrillation [facility] 12:46 PM Post Blood Pressure 119/79 [facility] 12:46 PM Information taught Cardiac Cath and PCI [facility] 12:46 PM Education needs Procedure, Plan of Care, and Responsibilities of Patient in Care [facility] 12:47 PM Learning barriers :None [facility] 12:47 PM Education Methods Verbal [facility] 12:47 PM Education evaluation Able to repeat information [facility] 12:47 PM Site status No bleeding/ No Hematoma - Lt Groin as reported by Bradford Walker RT (R) at 12:47 [facility] 12:47 PM Opsite applied [facility] 12:48 PM Time: 12:48 Plavix 150 mg Orally Given by Issa Rob RN [facility] 12:48 PM Plavix, Effient or Brilinta given Yes [facility] 12:48 PM Delay to floor No [facility] 12:48 PM Patient out of room: 12:48 [facility] 12:48 PM Family placed in consult room. [facility] 12:48 PM Complications: None [facility] 12:56 PM Lesion found in Mid RCA. Pre Stenosis: 100 Pre NEERU Flow: [place] 12:56 PM Lesion found in Proximal LAD. Pre Stenosis: 25 Pre NEERU Flow: [place] 12:56 PM Lesion found in Mid LAD. Pre Stenosis: 25 Pre NEERU Flow: [place] 12:57 PM Lesion found in Distal Circumflex. Pre Stenosis: 90 Pre NEERU Flow: 3 jhamilton 12:57 PM Lesion found in 1st Marginal. Pre Stenosis: 80 Pre NEERU Flow: 3 [place] 12:57 PM Left Main Coronary Artery with 0% stenosis [place] 12:58 PM Proximal Left Anterior Descending Coronary Artery with 25% stenosis. If graft is supplying this territory, 0 % stenosis. [place] 12:58 PM Mid/Distal Left Anterior Descending Coronary Artery and diagonal branches with 0% stenosis. If graft is supplying this area, 0 % stenosis [place] 12:58 PM Circumflex, Obtuse Marginal, Left Posterior Descending, and Left Posterolateral Coronary Arteries with 90 % stenosis. If graft is supplying this area, 0 % stenosis [place] 12:58 PM Right Coronary, Right Posterior Descending Arteries with Right Posterolateral and Acute Marginal branches with 100 % stenosis. If graft is supplying this area, 0 % stenosis j[place] 12:58 PM Ramus with 0% stenosis. If graft is supplying this area, 0 % stenosis [place] Complications Complication None None Hemodynamics Pressures Site Systolic/A Wave Diastolic/V Wave Mean AO 112 86 99 AO 107 82 94 AO 116 76 92 AO 118 83 99 LV 105 14 46 LV 110 10 12 AO 118 66 90 Post Procedure Information Blood Pressure: 119/79 mmHg Rhythm: Atrial Fibrillation Post procedural instructions were given Site Checks Time Location Status Staff Sheath In? Note 12:47 PM Lt Groin No bleeding/ No Hematoma Bradford Walker RT (R) Pulses Time Site Pre-Procedure Post-Procedure Note Bilateral DP & PT 1+ Updated by Ruthie Merrill RT (R) on 07/05/2019 1:10:11 PM electronically signed on 07/05/2019 1:10:46 PM with status of Final
[2019-07-05] MEDS ORDERED: Nitroglycerin 0.4 MG TAB.SUBL SL ONE ×2 (16:15→16:17)
[2019-07-05] MEDS: traMADol 50 MG TABLET PO PRN (17:50)
[2019-07-05] MEDS ORDERED: Apixaban 5 MG TABLET PO SCH (21:00)
[2019-07-05] MEDS: Apixaban 5 MG TABLET PO SCH (22:15)
[2019-07-06 02:23] LABS: Basophils % 0.4 %; Eosinophils # 0.1 K/mcL (0.0-0.6); Eosinophils % 1.8 %; Hematocrit 36.3 % (35.3-44.9); Lymphocytes # 1.5 K/mcL (0.6-4.6); Lymphocytes % 29.4 %; Mean Corpuscular HGB Conc 30.3 g/dL (31.6-35.5); Mean Corpuscular Volume 95.8 fL (83.0-100.0); Mean Platelet Volume 9.6 fL (9.4-12.4); Monocytes # 0.5 K/mcL (0.0-1.3); Monocytes % 9.3 %; Neutrophils # 2.9 K/mcL (1.6-8.9); Platelet Count 197 K/mcL (140-400); Red Blood Count 3.79 M/mcL (3.82-4.97); Red Cell Distribution Width 20.2 % (11.5-14.5); Segmented Neutrophils % 59.1 %
[2019-07-06 02:44] LABS: BUN/Creatinine Ratio 31 (6-26); Blood Urea Nitrogen 22 mg/dL (8-23); Calcium 9.2 mg/dL (8.6-10.3); Carbon Dioxide 31 mEq/L (23-29); Chloride 107 mEq/L (98-107); Glucose 99 mg/dL (70-105); Osmolality,Calculated 293 (280-300); Sodium 140 mEq/L (136-145); eGFR For African Americans > 60 (> 60); eGFR For Non-African Americans > 60 (> 60)
[2019-07-06] MEDS: Levalbuterol Neb 0.63 MG/3 ML IH SCH ×2 (03:36→11:08)
--- NOTE | 2019-07-06 07:35 | Cardiology Progress Note ---
Date of Encounter: 07/06/19 Time of Encounter: 07:32 Assessment and Plan (1) Coronary artery disease Current Visit: No Status: Chronic Hx CAD and PCI. S/P LHC yesterday for new CMP EF 35-40%. There is severe two vessel coronary artery disease.Patient had successful PTCA in the distal Circ. and OM. DAPT (ASA and Plavix). Pt verbalizes understanding. Continue BB, Statin, ARB, Nitrates. Pt will be on triple therapy--Eliquis for recent PE. Plan to stop ASA 1 month post PTCA to reduce bleeding risk. Left femoral access site healing well. No bleeding or hematoma noted. Mild ecchymosis. Restrictions discussed. Cardiology signing off. Reconsult PRN. Will coordinate outpt follow-up in 2-3 weeks. Qualifiers: Coronary Disease-Associated Artery/Lesion type: [place] artery [place] vs. transplanted heart: [place] heart Associated angina: with stable angina Qu alified Code(s): I25.118 - Atherosclerotic heart disease of [place] coronary artery with other forms of angina pectoris (2) Cardiomyopathy Current Visit: Yes Status: Acute Limited TTE 07/03/19: LVEF 35-40%. TTE 02/27/19: LVEF 55%, newly reduced. Given concern for ICMP, underwent LHC yesterday, 07/05. There is severe two vessel coronary artery disease. Patient had successful PTCA in the distal Circ. and OM. Will plan to repeat TTE in 3 months to re-evaluate EF. Continue BB and ARB. Qualifiers: Cardiomyopathy type: unspecified Qualified Code(s): I42.9 - Cardiomyopathy, unspecified (3) Acute systolic CHF (congestive heart failure), NYHA class 2 Current Visit: Yes Status: Acute Presented with worsening dyspnea. BNP 1483. EF newly reduced 35-40%. Was diuresed with PO and IV Lasix. Cumulative I/O -1075mL. Renal function normal. Will resume PO Lasix 40mg daily. Now euvolemic on exam. Recommend strict I/Os, Na and fluid restriction, daily weights. (4) Atrial fibrillation Current Visit: Yes Status: Chronic Known A-Fib. Presented RVR, rate 112. Currently rate controlled--12 hr tele AVG HR 86. Continue BB. Anticoagulated on Eliquis. Qualifiers: Atrial fibrillation type: unspecified Qualified Code(s): I48.91 - Unspecified atrial fibrillation Discussion w patient/family: The assessment and plan as outlined above was discussed with the patient and/or family members who expressed understanding and agreement. All questions were answered. Thank you for involving us in the care of your patient. Please call with any questions. I will discuss all the above with Dr. Bennett and make changes as necessary. Subjective Principal diagnosis: CHF Interval history: Pt reports dyspnea has improved. Denies chest pain. Objective Vital Signs, Last 4 Hours Temp Pulse Resp BP Pulse Ox 07/06/19 07:30 97.7 F 82 18 129/88 100 07/06/19 03:57 98.3 F 78 16 127/94 90 07/06/19 03:36 16 92 Vital Signs Temp Pulse Resp BP Pulse Ox 07/06/19 07:30 97.7 F 82 18 129/88 100 07/06/19 03:57 98.3 F 78 16 127/94 90 07/06/19 03:36 16 92 07/05/19 23:23 98.1 F 80 18 117/78 92 07/05/19 22:36 16 974 07/05/19 19:34 97.9 F 112 16 120/98 96 07/05/19 16:50 98.0 F 100 18 118/89 96 07/05/19 16:45 98.0 F 101 18 127/93 95 07/05/19 16:40 98.0 F 94 16 127/89 97 07/05/19 16:35 98.0 F 96 17 135/93 94 07/05/19 16:30 98.0 F 99 17 101/71 91 07/05/19 16:25 98.0 F 97 18 102/81 95 07/05/19 16:19 98.0 F 100 20 132/96 96 07/05/19 16:09 98.0 F 96 20 125/101 98 07/05/19 10:41 97.8 F 73 17 110/75 98 07/05/19 09:38 100 07/05/19 09:28 16 99 Intake and Output 07/05/19 07/05/19 07/06/19 15:59 23:59 07:59 Intake Total 0 / 0 0 / 0 Output Total 900 / 900 Balance 0 / 0 0 / 0 -900 / -900 Intake: Oral 0 / 0 0 / 0 Output: Urine 900 / 900 Other: Meal NPO NPO Percent of Meal Consumed 0% 0% Weight 55.8 kg Blood Glucose* 118 104 Patient Weight 07/06/19 23:59 Weight 55.8 kg General: Conversant, No Apparent Distress HEENT: Atraumatic, Normocephaly, Mucus Membranes Moist Neck: No JVD, Normal carotid pulses Cardiac: Other (irregularly irregular rhythm) Lungs: Normal Breath Sounds, No Wheeze, Rales, Rhonchi Neuro: Alert and responsive, No focal deficits noted Abdomen: Soft, Non-Tender Skin: Other (right femoral access site healing well. No bleeding or hematoma. Mild ecchymosis.) Musculoskeletal: No Chest Wall Tenderness Extremities: No Clubbing, No Cyanosis, No Edema, Normal Pulses Results 07/06/19 01:25 07/06/19 01:25 Lab Results 07/06/19 07/06/19 01:25 01:25 WBC 5.0 Hgb 11.0 L Hct 36.3 Plt Count 197 Sodium 140 Potassium 4.0 Chloride 107 Carbon Dioxide 31 H BUN 22 Creatinine 0.70 Glucose 99 Calcium 9.2 Short CBC 07/06/19 Range/Units 01:25 WBC 5.0 (4.3-11.1) K/mcL Hgb 11.0 L (11.5-15.4) g/dL Hct 36.3 (35.3-44.9) % Plt Count 197 (140-400) K/mcL Neutrophils # 2.9 (1.6-8.9) K/mcL BMP 07/06/19 Range/Units 01:25 Sodium 140 (136-145) mEq/L Potassium 4.0 (3.5-5.1) mEq/L Chloride 107 (98-107) mEq/L Carbon Dioxide 31 H (23-29) mEq/L BUN 22 (8-23) mg/dL Creatinine 0.70 (0.60-1.20) mg/dL Glucose 99 (70-105) mg/dL Calcium 9.2 (8.6-10.3) mg/dL Active Medications Acetaminophen (Tylenol) 650 mg PO Q6HR PRN PRN Reason: Pain Stop: 01/02/20 10:35 Albuterol Sulfate (Proventil Neb) 2.5 mg IH Q4HR PRN; Protocol PRN Reason: Dyspnea Stop: 01/01/20 17:48 Apixaban (Eliquis) 5 mg PO BID [facility]; Protocol Stop: 01/04/20 21:01 Last Admin: 07/05/19 22:15 Dose: 5 mg Documented by: Aspirin (Aspirin) 81 mg PO DAILY [facility] Stop: 01/02/20 09:01 Last Admin: 07/05/19 09:55 Dose: 81 mg Documented by: Atorvastatin Calcium (Lipitor) [address] [facility] Stop: 01/01/20 21:01 Last Admin: 07/05/19 22:14 Dose: 80 mg Documented by: Clonazepam (Klonopin) 0.5 mg PO TID PRN PRN Reason: Anxiety Stop: 01/01/20 17:48 Last Admin: 07/05/19 17:50 Dose: 0.5 mg Documented by: Clopidogrel Bisulfate (Plavix) 75 mg PO DAILY [facility] Stop: 01/05/20 09:01 Dextrose/Water (Dextrose 50% (Syg)) 25 ml IVP AD PRN PRN Reason: Hypoglycemia Stop: 01/01/20 08:40 Dicyclomine HCl (Bentyl) 20 mg PO BID [facility] Stop: 01/01/20 21:01 Last Admin: 07/05/19 22:14 Dose: 20 mg Documented by: Gabapentin (Neurontin) 300 mg PO TID [facility] Stop: 01/01/20 21:01 Last Admin: 07/05/19 22:15 Dose: 300 mg Documented by: Glucagon (Glucagen) 1 mg IM ONCE PRN PRN Reason: Hypoglycemia Stop: 01/01/20 08:40 Glucose (Gluctose) 15 gm PO ONCE PRN PRN Reason: Hypoglycemia Stop: 01/01/20 08:40 Glucose (Gluctose) 30 gm PO ONCE PRN PRN Reason: Hypoglycemia Stop: 01/01/20 08:40 Dextrose (Dextrose 5%) 1,000 mls @ 100 mls/hr IVC .Q10H PRN PRN Reason: HYPOGLYCEMIA Stop: 01/01/20 08:40 Insulin Human Lispro (Humalog) [address] [facility]; Protocol Stop: 01/01/20 21:01 Last Admin: 07/05/19 22:14 Dose: Not Given Documented by: [facility]ulin [facility] ([facility]) [facility]; Protocol Stop: 01/01/20 11:31 Last Admin: 07/05/19 22:13 Dose: Not Given Documented by: Levalbuterol HCl (Xopenex) 0.63 mg IH [id number] [facility] Stop: 01/01/20 10:01 Last Admin: 07/06/19 03:36 Dose: 0.63 mg Documented by: Metoprolol Tartrate (Lopressor) 50 mg PO BID [facility] Stop: 01/02/20 21:01 Last Admin: 07/05/19 22:15 Dose: 50 mg Documented by: Naloxone HCl (Narcan) 0.4 mg IVP Q2MPRN PRN PRN Reason: SEE COMMENTS Stop: 01/01/20 08:36 Omeprazole (Prilosec) 40 mg PO DAILY [facility] Stop: 01/02/20 09:01 Last Admin: 07/05/19 09:55 Dose: 40 mg Documented by: Ondansetron HCl (Zofran Odt) 4 mg PO BID PRN PRN Reason: NAUSEA/VOMITING Stop: 01/01/20 21:31 Potassium Chloride (Potassium Chloride) 10 meq PO DAILY [facility] Stop: 01/02/20 09:01 Last Admin: 07/05/19 09:55 Dose: 10 meq Documented by: Ranolazine (Ranexa) 500 mg PO BID [facility] Stop: 01/01/20 21:01 Last Admin: 07/05/19 22:15 Dose: 500 mg Documented by: Tizanidine HCl (Zanaflex) 2 mg PO TID PRN PRN Reason: MUSCLE SPASMS Stop: 01/01/20 21:32 Last Admin: 07/05/19 00:07 Dose: 2 mg Documented by: Tramadol HCl (Ultram) 50 mg PO TID PRN PRN Reason: Pain Stop: 01/02/20 20:18 Last Admin: 07/05/19 17:50 Dose: 50 mg Documented by: Venlafaxine HCl (Effexor) 75 mg PO BID [facility] Stop: 01/01/20 21:01 Last Admin: 07/05/19 22:15 Dose: 75 mg Documented by: - Imaging and Cardiology Echo: report reviewed Cardiac cath: report reviewed Consult Discharge Plan - Plan Referrals: Maddie Morton [Primary Care Provider] - 07/16/19 1:15 pm Sony Avery [Partnered Physician] - (Office will call patient at home with follow up appointment)
[2019-07-06] MEDS: Insulin LISPRO 300 UNITS/3 ML VIAL SQ SCH (08:34)
[2019-07-06] MEDS ORDERED: Furosemide 40 MG TABLET PO SCH (09:00)
[2019-07-06] MEDS: Apixaban 5 MG TABLET PO SCH (09:07)
[2019-07-06] MEDS: Ranolazine 500 MG TAB.ER.12H PO SCH (09:07)
[2019-07-06] MEDS: Gabapentin 300 MG CAPSULE PO SCH (09:07)
[2019-07-06] MEDS: Aspirin 81 MG TAB.CHEW PO SCH (09:07)
[2019-07-06] MEDS: clonazePAM 1 MG TABLET PO PRN (09:12)
--- NOTE | 2019-07-06 11:16 | Discharge Summary ---
- NOTES TO OUTPATIENT PROVIDER Notes to Outpatient Provider: Patient was admitted to the hospital for heart failure exacerbation and with a new echocardiogram showing reduced ejection fraction of 35-40%. During her stay, she was diuresed with IV Lasix. Atrial fibrillation was well controlled with Lopressor. Due to her new reduced e jection fraction, patient had a left heart catheterization that showed severe 2 vessel coronary artery disease and had successful PTCA in the distal circumflex and open. Patient was initiated on aspirin and Plavix. She will also start on Toprol 50mg PO BID. She will also continue her atorvastatin, Lasix 40 mg PO daily. Losartan dose will be changed to 12.5mg PO daily. Please continue on the rest of her home medications including Eliquis for anticoagulation. Please follow up within the next week to discuss the patient's hospitalization and for further evaluation and management. Please also follow up with cardiology outpatient in the next 2-3 weeks. Patient will also get a CBC in one week at the location of their choosing. Estimated PT Needs at Discharge: None Estimated OT Needs at Discharge: None Estimated ST Needs at Discharge: None PT Estimated DME Needs at D/C: None Date of Encounter: 07/06/19 Time of Encounter: 11:07 - Discharge Diagnosis (1) Acute exacerbation of congestive heart failure Priority: Primary Status: Acute Qualifiers: Heart failure type: combined systolic and diastolic Qualified Code(s): I50.43 - Acute on chronic combined systolic (congestive) and diastolic (congestive) heart failure (2) Atrial fibrillation with RVR Priority: Secondary Status: Acute (3) Falls Priority: Secondary Status: Chronic Qualifiers: Encounter type: sequela Qualified Code(s): W19.XXXS - Unspecified fall, sequela (4) COPD (chronic obstructive pulmonary disease) Priority: Secondary Status: Chronic Qualifiers: COPD type: emphysema Emphysema type: unspecified Qualified Code(s): J43.9 - Emphysema, unspecified (5) HTN (hypertension) Priority: Secondary Status: Chronic Qualifiers: Hypertension type: essential hypertension Qualified Code(s): I10 - Essential (primary) hypertension (6) Type 2 diabetes mellitus Priority: Secondary Status: Chronic Qualifiers: Diabetes mellitus halfway insulin use: without extermination supervisor use Diabetes mellitus complication status: with circulatory complication Diabetes mellitus complication detail: with peripheral angiopathy without gangrene Qualified Code(s): E11.51 - Type 2 diabetes mellitus with diabetic peripheral angiopathy without gangrene (7) Lung nodule Priority: Secondary Status: Chronic (8) History of pulmonary embolism Priority: Secondary Status: Chronic (9) Coronary artery disease Priority: Secondary Status: Chronic Qualifiers: Coronary Disease-Associated Artery/Lesion type: [place] artery [place] vs. transplanted heart: [place] heart Associated angina: with stable angina Qualified Code(s): I25.118 - Atherosclerotic heart disease of [place] coronary artery with other forms of angina pectoris Hospital course: Ms. Costa is a 68 year old female with a past medical history of COPD, atrial fibrillation with RVR on apixaban, DVT/PE, CHF, coronary artery disease, hyperlipidemia, peripheral artery disease, [place], hypertension, diabetes who presents with progressive shortness of breath for the past several days. Patient denies knowledge of any inciting event or trigger. Feels similar to previous CHF exacerbations. Patient has some increased bilateral extremity edema. Patient was recently admitted in May 2019 for CHF exacerbation and A. fib with RVR likely due to missed her medications and was treated with IV Lasix. Has a home O2 requirement of 2.5-3 L. In the emergency department patient had temp 98.4, HR 112, RR 16, BP 150/92, 89% on 2 L NC. Patient was in atrial fibrillation. CBC, BMP, troponin were all within normal limits. EKG showed no acute ischemic changes. BNP was significantly elevated. CT angios was performed, negative PE. CT did show chronic thromboembolic disease, pulmonary hypertension, volume overload, bilateral pleural effusions, interstitial edema. She was given 500 mils normal saline to manage her rate. CT also showed interval increase of change in right upper lobe nodule suspicious for adenocarcinoma. Patient was treated with DuoNeb's, Solu-Medrol with little improvement. Given 40 mg Lasix. Patient also had a questionable history of falling and had a CT head that showed no acute intracranial abnormality. During her hospital stay, patient had a repeat echocardiogram with an LVEF reduced to 35%. She was started on IV Lasix 40 mg twice a day. Patient was diuresing well and was transitioned to her home dose 40 mg by mouth once a day. Due to the new reduced ejection fraction, patient had a LHC that showed severe 2 vessel coronary artery disease. Patient had successful PTCA in the distal circumflex and OM. She will continue her beta rebecca, atorvastatin, losartan. She will also continue Eliquis for anticoagulation given recent PE. Plan is to stop aspirin one month post PTCA to reduce bleeding risk. Patient is now currently on her home oxygen requirement. Patient did present in A. fib with RVR. She was initially put on a Cardizem drip and was titrated down. Patient was then transitioned to metoprolol 50 mg twice a day. Has been rate controlled since. To conclude, patient is to continue on her home medications with the exception of stopping Imdur and amlodipine. Her losartan dose was changed to 12.5 mg daily. She will now be on Toprol XL 50 mg twice a day for rate control. She will maintain her home Lasix dose 40 mg by mouth once a day. Patient was directed to follow up with her primary care provider within the next week and oceanic sciences professor in the next 2-3 weeks for further evaluation and management. Return precautions were provided. Patient was also instructed to get a repeat CBC in one week. At discharge patient currently denies any symptoms of shortness of breath and is hemodynamically stable. Discharge discussed with: patient, nurse Time spent discussing smoking cessation with patient: 3 to 10 minutes - Time Spent with Patient Total time spent providing and/or coordinating discharge services: Time spent: Less than 30 minutes - Discharge Medications Prescriptions: New Clopidogrel [Plavix] 75 mg PO DAILY #30 tablet Metoprolol XL (24 HR) Succ [Toprol XL] 50 mg PO BID #60 tab Losartan [Cozaar] 12.5 mg PO DAILY #15 tablet Continued Albuterol Neb [Proventil Neb] 2.5 mg IH Q4HR PRN #100 vial.neb PRN Reason: Dyspnea Aspirin 81 mg PO DAILY #30 tab.chew Atorvastatin Calcium [Lipitor] 80 mg PO HS #30 tablet Metformin HCl [Glucophage] 1,000 mg PO BID #60 tablet Ranolazine [Ranexa] 500 mg PO BID 30 Days #60 tab.er.12h Magnesium Oxide [Mag-Oxide Magnesium] 400 mg PO DAILY Tizanidine HCl 2 mg PO TID PRN PRN Reason: MUSCLE SPASMS Venlafaxine [Effexor] 75 mg PO BID Apixaban [Eliquis] 5 mg PO BID #60 tablet Albuterol Sulfate [Ventolin Hfa] 1 puff IH Q6H PRN PRN Reason: Shortness Of Breath Ergocalciferol (VITAMIN D2) [Vitamin D2] 50,000 unit PO TU Montelukast [Singulair] 10 mg PO DAILY clonazePAM [Klonopin] 0.5 mg PO TID PRN 4 Days #12 tablet PRN Reason: Anxiety Furosemide [Lasix] 40 mg PO DAILY 30 Days #60 tablet Gabapentin [Neurontin] 300 mg PO TID #90 capsule Dicyclomine Hcl [Bentyl] 20 mg PO BID Omeprazole [PriLOSEC] 40 mg PO DAILY Ondansetron HCl 4 mg PO BID PRN PRN Reason: NAUSEA/VOMITING Potassium Chloride [K-Tab ER] 10 meq PO DAILY Discontinued Metoprolol Tartrate [Lopressor] 25 mg PO BID Amlodipine Besylate 5 mg PO DAILY 30 Days #30 tablet Losartan Potassium [Cozaar] 50 mg PO BID Isosorbide MONOnitrate (24 HR) [Imdur] 60 mg PO QAM Home Medications: Albuterol Neb [Proventil Neb] 2.5 mg IH Q4HR PRN #100 vial.neb 02/15/18 [Rx] Aspirin 81 mg PO DAILY #30 tab.chew 02/15/18 [Rx] Atorvastatin Calcium [Lipitor] 80 mg PO HS #30 tablet 02/15/18 [Rx] Metformin HCl [Glucophage] 1,000 mg PO BID #60 tablet 02/15/18 [Rx] Ranolazine [Ranexa] 500 mg PO BID 30 Days #60 tab.er.12h 02/15/18 [Rx] Magnesium Oxide [Mag-Oxide Magnesium] 400 mg PO DAILY 02/27/19 [History] Tizanidine HCl 2 mg PO TID PRN 02/27/19 [History] Venlafaxine [Effexor] 75 mg PO BID 02/27/19 [History] Apixaban [Eliquis] 5 mg PO BID #60 tablet 03/04/19 [Rx] Albuterol Sulfate [Ventolin Hfa] 1 puff IH Q6H PRN 06/13/19 [History] Ergocalciferol (VITAMIN D2) [Vitamin D2] 50,000 unit PO TU 06/13/19 [History] Montelukast [Singulair] 10 mg PO DAILY 06/13/19 [History] Furosemide [Lasix] 40 mg PO DAILY 30 Days #60 tablet 06/23/19 [Rx] Gabapentin [Neurontin] 300 mg PO TID #90 capsule 06/23/19 [Rx] clonazePAM [Klonopin] 0.5 mg PO TID PRN 4 Days #12 tablet 06/23/19 [Rx] Dicyclomine Hcl [Bentyl] 20 mg PO BID 07/02/19 [History] Omeprazole [PriLOSEC] 40 mg PO DAILY 07/02/19 [History] Ondansetron HCl 4 mg PO BID PRN 07/02/19 [History] Potassium Chloride [K-Tab ER] 10 meq PO DAILY 07/02/19 [History] Clopidogrel [Plavix] 75 mg PO DAILY #30 tablet 07/06/19 [Rx] Losartan [Cozaar] 12.5 mg PO DAILY #15 tablet 07/06/19 [Rx] Metoprolol XL (24 HR) Succ [Toprol XL] 50 mg PO BID #60 tab 07/06/19 [Rx] Allergies/Adverse Reactions: Allergy/AdvReac Type Severity Reaction Status Date / Time No Known Allergies Allergy Verified 07/02/19 16:44 Date of admission: 07/03/19 12:57 Primary care physician: Maddie Morton Consults: 07/02/19 08:38 Consult to Occupational Therapy [CONS] Routine Comment: Evaluate, develop and implement POC Reason for Consult: recent fall Does patient have active BEDREST order?: No Is patient medically & hemodynamically stable?: Yes Consult to Physical Therapy [CONS] Routine Comment: Evaluate, develop and implement POC Reason for Consult: recent fall Does patient have active BEDREST order?: No Is patient medically & hemodynamically stable?: Yes 07/02/19 16:26 Consult to One Piece Expansion Maker Hand [CONS] Routine Reason for SW Consult: Discharge planning, need for home health 07/03/19 15:20 Consult to Cardiology [CONS] Routine Comment: Consulting Provider: Cardiology Bell Reason for Consult: HFpEF and A-Fib RVR, however limited TTE today shows EF newly depressed to 35-40%. Multiple stents, last [facility] 12/2017, wondering if she needs re-cathed? Call Completed: No 07/05/19 12:49 Consult to Cardiac Rehabilitation-Phase1 [CONS] Routine Comment: Reason for Consult: AMI Call Completed: Yes Consult to Nurse Navigator [CONS] Routine Comment: Discharging clinician: Albert Maldonado Anticipated date of discharge: 07/06/19 - Constitutional Vitals: Temp Pulse Resp BP Pulse Ox 97.7 F 82 18 129/88 100 07/06/19 07:30 07/06/19 07:30 07/06/19 07:30 07/06/19 07:30 07/06/19 07:30 Exam: GEN: Well-appearing, NAD, conversant. HEAD: Normocephalic, atraumatic. EYES: PERRL, EOMI, anicteric. ENT: MMM. oropharynx without erythema or drainage. NECK: Supple. No LAD. No stiffness or restricted ROM. No tracheal deviation. HEART: Regular rate and regular rhythm, normal S1/S2, no m/r/g. LUNGS: Good air exchange throughout, bibasilar crackles noted in lung bases, end expiratory wheezing, no work of breathing on supplemental O2. ABDO: Soft, nontender, nondistended with active bowel sounds. : No suprapubic tenderness or CVA tenderness. BACK: No obvious stepoffs or deformities. EXT: Without cyanosis, clubbing or edema. SKIN: Warm and dry without any rash. NEURO: Grossly nonfocal. Alert and oriented, moving all 4 extremities. CN not formally tested but appear grossly intact. PSYCH: Normal affect, no depressed or anxious mood. - Patient Status Disposition: Home, Self-Care Condition: Fair Functional capacity at discharge: uses cane/walker Overall status at discharge: patient is progressing back to baseline - Discharge Instructions Instructions: Metoprolol (By mouth), Losartan (By mouth), Clopidogrel (By mouth), Chest Pain (DC) Follow Up With: Maddie Morton [Primary Care Provider] - 07/16/19 1:15 pm Sony Avery [Partnered Physician] - (Office will call patient at home with follow up appointment) Additional Instructions: You have been admitted to the hospital for a heart failure exacerbation and coronary artery disease. Your diuresed with Lasix due to volume overload. An echocardiogram showed a reduced ejection fraction. Subsequently you a heart catheterization that showed severe coronary artery disease that was intervened with balloon angioplasty. Several other medications have been changed. Please continue to take Lasix 40 mg by mouth once a day. You have been given new prescriptions for losartan 12.5 mg by mouth twice a day, Toprol XL 50 mg twice a day, Plavix 75 mg by mouth daily. To prevent your blood pressure from going too low, your amlodipine and Imdur have been discontinued. These new prescriptions have been sent to your pharmacy. Please continue to take the rest of your home medications as prescribed. Over the next week please repeat a complete blood count at a laboratory of your choosing and schedule an appointment with her primary care provider to discuss her hospitalization and for further management and evaluation. Over the next 2- 3 weeks, cardiology will recheck to you to set up a follow-up appointment to discuss further management of your cardiac issues. Please return to the emergency department if you have significant worsening of your symptoms. These include but are not limited to increased chest pain, shortness of breath, palpitations, fainting, fevers. RISK FACTORS: STOP SMOKING: If you smoke, STOP. Smoking or tobacco use significantly increases your risk of heart disease because nicotine causes the arteries to narrow or constrict. It also causes fats to stick to the artery. Your chances of having a heart attack are greatly increased if you continue to smoke. For more information, call the education line for smoking cessation 6-266-RLPTDKL EAT A LOW FAT/CHOLESTEROL/SODIUM DIET: This diet may help reduce your chances of having a heart attack. LIFTING: Avoid lifting anything more than 10 pounds for 5-7 days Prior to straining, laughing, sneezing and/or coughing, apply manual pressure directly over insertion site. ACTIVITY: You may walk or climb stairs as tolerated You can resume sexual activity as tolerated In general, you are encouraged to engage in a minimum of 30 minutes or more of moderate intensity physical activity, such as brisk walking, daily or at least 3-4 times weekly BATHING Do not submerge the site into water (bath tub, hot tub, swimming pool) for 1 week. This can be a source for infection into the blood stream. You may shower after 24 hours SITE CARE: After 24 hours, you may remove the dressing and leave the site open to air. Keep the site clean and dry. Clean gently and pat dry. You can expect bruising and tenderness that gradually resolve within a week or two. Return to work as instructed per your physician Resume driving as instructed per physician Keep all scheduled follow up appointments Resume medications as instructed IMPORTANT: If prescribed a Platelet Aggregation Inhibitor such as, Plavix, Brilinta or Effient: Duration of therapy is minimum one year These medications are often used in combination with Aspirin in prevention of future heart attacks Never discontinue unless consult with your Seat Cover Maker STROKE (CVA) Risk factors for a stroke are: Age, cigarette smoking, diabetes, excessive alcohol consumption, family history, high blood pressure, overweight, physical inactivity, prior stroke, heart attack, diagnosis of carotid artery stenosis or other artery disease. Warning signs: Sudden numbness or weakness of the face, arm or leg; especially on one side of the body, sudden confusion, trouble speaking or understanding, sudden trouble seeing in one or both eyes, sudden trouble walking, dizziness, loss of balance or coordination, sudden severe headache with no cause. Call 911 or go to the Emergency Room. CONGESTIVE HEART FAILURE: If you have been diagnosed with Congestive Heart Failure (CHF) and your symptoms return, make an appointment with your physician Weigh yourself daily. Notify your physician if you have a weight gain of two or more pounds in one day or five or more pounds in one week. If you experience any difficulty breathing, please call 911 BLEEDING: Although the risk of bleeding is minimal, it can happen. If you have any bleeding from the site, apply firm pressure above the puncture site for 10-15 minutes. If the bleeding does not stop, continue manual pressure and call 911 CARDIAC REHABILITATION: If you have had a heart attack or cardiac stents placed, please ask your oceanic sciences professor if Cardiac Rehabilitation is right for you. Cardiac Rehabilitation is recommended, beneficial to your health and can improve the following: strengthen your heart, improve ejection fraction, weight reduction, decrease cholesterol levels, lower blood pressure, lower blood sugar, improve stamina and enhance self-image. If you have any questions please call [facility] at [phone]. Contact your physician if: You develop a fever greater than 101 degrees Fahrenheit Your site becomes reddened or has any drainage You have an increase in pain or burning at the site or if a large knot forms at the site. If you experience chest pain, shortness of breath, dizziness, or extreme tiredness, stop the activity and rest. Please notify your physicians office if you experience any of these symptoms and they are not relieved by rest please call 911! - Diet and Activity Activity: increase activity as tolerated, resume usual activities as tolerated, wear oxygen at all times Diet: diabetic diet (Resume a cardiac and diabetic diet as tolerated. )
[2019-07-06 11:22] VITALS: BP 115/89
--- NOTE | 2019-07-08 08:01 | Physician Discharge Referral ---
Home Health/Hosp Referral Info Transfer to: Home Health Provider in Charge Post Discharge: PCP - Respiratory Orders Oxygen / L per min (3) Smoking Cessation: Smoking cessation has been advised. For more information, call the [place] Tobacco Quit Line at 6-093-OFXO-NOW. - Diet/Nutrition Diet/Nutrition Orders: No Added Salt (EDMOND) - Activity Activity Orders: Up ad leila, Ambulate - Services Needed Following services are medically necessary services: Nursing - Transfer Medications Prescriptions: Losartan [Cozaar] 12.5 mg PO DAILY #15 tablet Clopidogrel [Plavix] 75 mg PO DAILY #30 tablet Metoprolol XL (24 HR) Succ [Toprol XL] 50 mg PO BID #60 tab Home Medications: Albuterol Neb [Proventil Neb] 2.5 mg IH Q4HR PRN #100 vial.neb 02/15/18 [Rx] Aspirin 81 mg PO DAILY #30 tab.chew 02/15/18 [Rx] Atorvastatin Calcium [Lipitor] 80 mg PO HS #30 tablet 02/15/18 [Rx] Metformin HCl [Glucophage] 1,000 mg PO BID #60 tablet 02/15/18 [Rx] Ranolazine [Ranexa] 500 mg PO BID 30 Days #60 tab.er.12h 02/15/18 [Rx] Magnesium Oxide [Mag-Oxide Magnesium] 400 mg PO DAILY 02/27/19 [History] Tizanidine HCl 2 mg PO TID PRN 02/27/19 [History] Venlafaxine [Effexor] 75 mg PO BID 02/27/19 [History] Apixaban [Eliquis] 5 mg PO BID #60 tablet 03/04/19 [Rx] Albuterol Sulfate [Ventolin Hfa] 1 puff IH Q6H PRN 06/13/19 [History] Ergocalciferol (VITAMIN D2) [Vitamin D2] 50,000 unit PO TU 06/13/19 [History] Montelukast [Singulair] 10 mg PO DAILY 06/13/19 [History] Furosemide [Lasix] 40 mg PO DAILY 30 Days #60 tablet 06/23/19 [Rx] Gabapentin [Neurontin] 300 mg PO TID #90 capsule 06/23/19 [Rx] clonazePAM [Klonopin] 0.5 mg PO TID PRN 4 Days #12 tablet 06/23/19 [Rx] Dicyclomine Hcl [Bentyl] 20 mg PO BID 07/02/19 [History] Omeprazole [PriLOSEC] 40 mg PO DAILY 07/02/19 [History] Ondansetron HCl 4 mg PO BID PRN 07/02/19 [History] Potassium Chloride [K-Tab ER] 10 meq PO DAILY 07/02/19 [History] Clopidogrel [Plavix] 75 mg PO DAILY #30 tablet 07/06/19 [Rx] Losartan [Cozaar] 12.5 mg PO DAILY #15 tablet 07/06/19 [Rx] Metoprolol XL (24 HR) Succ [Toprol XL] 50 mg PO BID #60 tab 07/06/19 [Rx] Allergies/Adverse Reactions: Allergy/AdvReac Type Severity Reaction Status Date / Time No Known Allergies Allergy Verified 07/02/19 16:44 Certification: Further, I certify that my clinical findings support that this patient is homebound (i.e. absences from home require considerable and taxing effort and are for medical reasons or [employer] [facility] or infrequently or short duration when for other reasons) because: Homebound Reason: Severity of cardiac or pulmonary status limits activity tolerance Attestation: My signature below is to certify that this patient is under my care and that I, or nurse practitioner, or a physician's assistant director of residence life working with me, has a [id number] encounter with this patient.
== END 2019-07-06 13:03 | disposition home or self-care (01) | DRG 251 ==
LOC: EMEROOARM 23:59 → 2ANU 23:59 → SUATTDRO 07-02 04:55 → 2ANU 07-02 05:30 → 2NNU 07-05 12:55
PROVIDERS: ADMIT Internal Medicine; ATTEND Internal Medicine

== ENCOUNTER 2019-08-09 13:09 | Inpatient (IN) ==
--- NOTE | 2019-08-09 13:25 | Emergency Department Note ---
Disposition Clinical Impression: Colitis, Lung nodule, Atrial fibrillation with RVR COPD (chronic obstructive pulmonary disease) Qualifiers: COPD type: unspecified COPD Qualified Code(s): J44.9 - Chronic obstructive pulmonary disease, unspecified Dyspnea Qualifiers: Dyspnea type: unspecified Qualified Code(s): R06.00 - Dyspnea, unspecified Disposition: Admitted As Inpatient Condition: Fair Time of Disposition: 17:53 General Adult HPI - General Stated complaint: CHRISTIANO Time Seen by Provider: 08/09/19 13:20 Source: patient, EMS Mode of arrival: EMS Limitations: no limitations Nursing Notes Reviewed: Yes Vital Signs Reviewed: Yes - History of Present Illness HPI Narrative: Patient is a 68-year-old female presenting with multiple complaints via EMS. Patient has history of atrial fibrillation currently on Eliquis, CHF with last echocardiogram showing ejection fraction to be 35-40%, CAD, pulmonary embolism, hypertension, hyperlipidemia and diabetes. Patient was discharged on 07/06/2019 for CHF exacerbation as well as A. fib with RVR. Since discharge she had been doing well, stated that her symptoms had significantly improved up until about one week ago when she began to have progressive shortness of breath and worsening difficulty breathing, she is chronically on 2 L nasal cannula and has had to use this over the past week, she states that this morning she tried using her nebulizer treatment as well as her albuterol inhaler and this did not help. She denies any change in cough or sputum production. She denies any fever or chills. Patient states she has constant chest pressure on the left side of her chest that does not radiate, this is unchanged for the past year and is there daily. She denies any new symptoms of chest pain. She states that her shortness of breath is worse with any type of exertion. She denies any new leg swelling. Patient also states for the past 2 weeks she has been having hematuria, this is gone unchanged, she denies dysuria but does have some suprapubic abdominal pain. She occasionally will have nausea without vomiting. No history of GI bleed or bleeding from the bowels. Patient did not take her morning medications that she was not feeling well. She did not take any of her medications this morning. She states the last time she did take her medications was last night. Pain Scale: 10 - Related Data Home Medications Medication Instructions Recorded Confirmed Magnesium Oxide [Mag-Oxide 400 mg PO DAILY 02/27/19 08/09/19 Magnesium] Tizanidine HCl 2 mg PO TID PRN 02/27/19 08/09/19 Venlafaxine [Effexor] 75 mg PO BID 02/27/19 08/09/19 Albuterol Sulfate [Ventolin Hfa] 1 puff IH Q6H PRN 06/13/19 08/09/19 Ergocalciferol (VITAMIN D2) 50,000 unit PO TU 06/13/19 08/09/19 [Vitamin D2] Montelukast [Singulair] 10 mg PO DAILY 06/13/19 08/09/19 Dicyclomine Hcl [Bentyl] 20 mg PO BID 07/02/19 08/09/19 Omeprazole [PriLOSEC] 40 mg PO DAILY 07/02/19 08/09/19 Ondansetron HCl 4 mg PO BID PRN 07/02/19 08/09/19 Potassium Chloride [K-Tab ER] 10 meq PO DAILY 07/02/19 08/09/19 Furosemide [Lasix] 20 mg PO HS 08/09/19 08/09/19 Furosemide [Lasix] 40 mg PO QAM 08/09/19 08/09/19 Previous Rx's Medication Instructions Recorded Albuterol Neb [Proventil Neb] 2.5 mg IH Q4HR PRN #100 vial.neb 02/15/18 Aspirin 81 mg PO DAILY #30 tab.chew 02/15/18 Atorvastatin Calcium [Lipitor] 80 mg PO HS #30 tablet 02/15/18 Metformin HCl [Glucophage] 1,000 mg PO BID #60 tablet 02/15/18 Ranolazine [Ranexa] 500 mg PO BID 30 Days #60 02/15/18 tab.er.12h Apixaban [Eliquis] 5 mg PO BID #60 tablet 03/04/19 Gabapentin [Neurontin] 300 mg PO TID #90 capsule 06/23/19 clonazePAM [Klonopin] 0.5 mg PO TID PRN 4 Days #12 tablet 06/23/19 Clopidogrel [Plavix] 75 mg PO DAILY #30 tablet 07/06/19 Losartan [Cozaar] 12.5 mg PO DAILY #15 tablet 07/06/19 Metoprolol XL (24 HR) Succ [Toprol 50 mg PO BID #60 tab 07/06/19 XL] Allergies Allergy/AdvReac Type Severity Reaction Status Date / Time No Known Allergies Allergy Verified 07/02/19 16:44 All systems ED: reviewed and negative except as stated. Review of Systems: As Per HPI Constitutional: Denies: fever, chills ENT ED: Denies: congestion Cardiovascular: Reports: chest pain, dyspnea on exertion. Denies: palpitations, edema, syncope Respiratory: Reports: cough, dyspnea, wheezes. Denies: hemoptysis, sputum production Gastrointestinal: Reports: abdominal pain, nausea. Denies: vomiting, diarrhea, hematemesis, melena, hematochezia Genitourinary: Reports: hematuria. Denies: urgency, dysuria, frequency, discharge Musculoskeletal: Denies: back pain Integumentary: Denies: rash Neurological: Denies: headache, weakness, numbness, paresthesias, confusion Endocrine: Reports: fatigue Past Medical History - Past Medical History Medical history: Reports: arthritis, atrial fibrillation, COPD, coronary artery disease, DVT, hyperlipidemia, hypertension, migraine, myocardial infarction, peripheral artery disease Surgical history: Reports: cholecystectomy, hysterectomy Psychiatric history: Reports: anxiety, depression [employer]ING [employer] history: Reports: no [employer]OVERING [employer]ER history - Social History Smoking Status: Current every day smoker Smokeless Tobacco Status: No Alcohol use: Reports: none Drug use: Reports: none Physical Exam - General Limitations: no limitations General appearance: alert, in no apparent distress - Head Head exam: atraumatic, normocephalic, normal inspection - Eye Eye exam: Present: normal appearance, PERRL, EOMI - ENT ENT exam: normal exam, normal oropharynx, mucous membranes moist - Neck Neck exam: Present: normal inspection, full ROM, trachea midline - Chest Chest inspection: Present: normal inspection - Respiratory Respiratory exam: Present: wheezes (Patient with diffuse wheezing throughout, no crackles or Rales noted to the bases. Patient is currently on 3 L nasal cannula without conversational dyspnea). Absent: accessory muscle use - Cardiovascular Cardiovascular exam: Present: tachycardia, irregular rhythm - Abdominal Exam Abdominal exam: Present: soft, tenderness (Minimal tenderness to the suprapubic region, without guarding or distention, no rigidity) - Extremities Exam Extremities exam: Present: normal inspection, full ROM. Absent: tenderness, pedal edema - Expanded Lower Extremity Exam Neurovascular/Tendon exam: Absent: motor deficit, sensory deficit, tendon deficit - Neurological Exam Neurological exam: Present: alert, oriented X3 - Psychiatric Psychiatric exam: Present: anxious - Skin Skin exam: Present: warm, dry, intact, normal color. Absent: rash, diaphoresis, pallor Course Vital Signs Temperature 97.6 F 08/09/19 13:14 Pulse Rate 138 08/09/19 13:14 Respiratory Rate 20 08/09/19 13:14 Blood Pressure 109/82 08/09/19 13:14 O2 Sat by Pulse Oximetry 97 08/09/19 13:14 Temperature 97.8 F 08/09/19 19:00 Pulse Rate 95 08/09/19 19:00 Respiratory Rate 18 08/09/19 19:00 Blood Pressure 105/73 08/09/19 19:00 O2 Sat by Pulse Oximetry 97 08/09/19 19:28 Oxygen Delivery Oxygen Delivery Room Air Medical Decision Making - MDM Narrative Medical decision making narrative: Patient is a 68-year-old female presenting with multiple complaints. Patient has known history of CAD, hypertension, hyperlipidemia, atrial fibrillation currently on anticoagulant medications. On arrival, patient is in atrial fibrillation with RVR, she was initially given 500 and multiple lists as well as her home medication 50 mg multiple XL. On evaluation, patient's heart rate has come down to 110 at bedside, will give the patient an additional 25 mg of m etoprolol by mouth. Concern for pulmonary embolism as well as intra-abdominal etiology with painless hematuria, CTA as well as CT of the abdomen and pelvis with IV contrast was performed. CTA shows no sign of pulmonary embolism however does show concern for possible right lung malignancy with metastasis. There is also pleural effusion. Patient's CT of abdomen and pelvis shows colitis, concerning for possible infectious versus ischemic, there is note of AAA that is stable at 3.3 cm requiring outpatient follow-up as well as a concern for possible dissection to the left common iliac artery, I did discuss these findings with the on-call vascular surgeon, Dr. Vu or he says that this is chronic for her, and unchanged from her baseline. No surgical intervention is needed this time. Patient also with painless hematuria, no acute intra-abdominal findings accept for colitis, no sign of mass at this time, however the patient was given Rocephin for possible urinary tract infection his urinalysis was unable to be diagnostic secondary to the Vaughn hematuria. Patient was started on Zosyn given colitis as well. Lactic acid is within normal limits. Patient's blood work is otherwise re latively unremarkable. Patient's troponin is elevated at 0.05, suspect this is mostly demand ischemia secondary to atrial fibrillation with RVR. I did discuss the patient with urology, Dr. Blackmon there is no acute emergent intervention required, he will consult tomorrow. Patient has been accepted for admission at this point in time. - Medical Records Medical records reviewed: Yes I reviewed the patient's medical records. - Lab Data Lab results reviewed: Yes I reviewed the patient's lab results. Result diagrams: 08/09/19 13:50 08/09/19 13:50 Lab Results 08/09/19 08/09/19 08/09/19 Range/Units 13:50 13:50 13:50 WBC 7.1 (4.3-11.1) K/mcL RBC 3.62 L (3.82-4.97) M/mcL Hgb 10.3 L (11.5-15.4) g/dL Hct 33.0 L (35.3-44.9) % MCV 91.2 (83.0-100.0) fL MCH 28.5 (28.0-33.3) pg MCHC 31.2 L (31.6-35.5) g/dL RDW 19.2 H (11.5-14.5) % Plt Count 217 (140-400) K/mcL MPV 10.1 (9.4-12.4) fL Immature Gran % 0.7 (0-4) % Seg Neutrophils % 76.8 % Lymphocytes % 14.0 % Monocytes % 8.0 % Eosinophils % 0.4 % Basophils % 0.1 % Neutrophils # 5.5 (1.6-8.9) K/mcL Lymphocytes # 1.0 (0.6-4.6) K/mcL Monocytes # 0.6 (0.0-1.3) K/mcL Eosinophils # 0.0 (0.0-0.6) K/mcL Basophils # 0.0 (0.0-0.2) K/mcL PT 21.3 H (9.4-12.1) Seconds INR 1.9 APTT 27.6 (26.0-36.0) Seconds Sodium 139 (136-145) mEq/L Potassium 3.8 (3.5-5.1) mEq/L Chloride 105 (98-107) mEq/L Carbon Dioxide 26 (23-29) mEq/L BUN 14 (8-23) mg/dL Creatinine 0.65 (0.60-1.20) mg/dL Est GFR ( Amer) > 60 (> 60) Est GFR (Non-Af Amer) > 60 (> 60) BUN/Creatinine Ratio 22 (6-26) Glucose 194 H (70-105) mg/dL Calculated Osmolality 294 (280-300) Lactic Acid (0.5-2.2) mmol/L Calcium 9.7 (8.6-10.3) mg/dL Total Bilirubin 1.0 (0.3-1.0) mg/dL Direct Bilirubin 0.3 H (0.0-0.2) mg/dL Indirect Bilirubin 0.7 (0.0-1.2) mg/dL AST 19 (13-39) Units/L ALT 18 (7-52) Units/L Alkaline Phosphatase 57 (34-104) Units/L Troponin I 0.05 H* (< 0.04) ng/mL B-Natriuretic Peptide (Less than 100) pg/mL Serum Total Protein 6.6 (6.4-8.9) g/dL Albumin 3.7 (3.5-5.7) g/dL Globulin 2.9 (2.4-3.5) g/dL Albumin/Globulin Ratio 1.3 (1.1-2.2) Lipase 8 L (11-82) Units/L Ur Specimen Adequacy Urine Color (Yellow) Urine Clarity (Clear) Urine pH Ur Specific [place] Urine Protein Urine Glucose (UA) Urine Ketones Urine Blood Urine Nitrite Urine Bilirubin Urine Urobilinogen Ur Leukocyte Esterase 08/09/19 08/09/19 08/09/19 Range/Units 13:50 14:15 14:30 WBC (4.3-11.1) K/mcL RBC (3.82-4.97) M/mcL Hgb (11.5-15.4) g/dL Hct (35.3-44.9) % MCV (83.0-100.0) fL MCH (28.0-33.3) pg MCHC (31.6-35.5) g/dL RDW (11.5-14.5) % Plt Count (140-400) K/mcL MPV (9.4-12.4) fL Immature Gran % (0-4) % Seg Neutrophils % % Lymphocytes % % Monocytes % % Eosinophils % % Basophils % % Neutrophils # (1.6-8.9) K/mcL Lymphocytes # (0.6-4.6) K/mcL Monocytes # (0.0-1.3) K/mcL Eosinophils # (0.0-0.6) K/mcL Basophils # (0.0-0.2) K/mcL PT (9.4-12.1) Seconds INR APTT (26.0-36.0) Seconds Sodium (136-145) mEq/L Potassium (3.5-5.1) mEq/L Chloride (98-107) mEq/L Carbon Dioxide (23-29) mEq/L BUN (8-23) mg/dL Creatinine (0.60-1.20) mg/dL Est GFR ( Amer) (> 60) Est GFR (Non-Af Amer) (> 60) BUN/Creatinine Ratio (6-26) Glucose (70-105) mg/dL Calculated Osmolality (280-300) Lactic Acid 1.7 (0.5-2.2) mmol/L Calcium (8.6-10.3) mg/dL Total Bilirubin (0.3-1.0) mg/dL Direct Bilirubin (0.0-0.2) mg/dL Indirect Bilirubin (0.0-1.2) mg/dL AST (13-39) Units/L ALT (7-52) Units/L Alkaline Phosphatase (34-104) Units/L Troponin I (< 0.04) ng/mL B-Natriuretic Peptide 3019 H (Less than 100) pg/mL Serum Total Protein (6.4-8.9) g/dL Albumin (3.5-5.7) g/dL Globulin (2.4-3.5) g/dL Albumin/Globulin Ratio (1.1-2.2) Lipase (11-82) Units/L Ur Specimen Adequacy See below A Urine Color Red A (Yellow) Urine Clarity Cloudy A (Clear) Urine pH TNP Ur Specific [place] TNP Urine Protein TNP Urine Glucose (UA) TNP Urine Ketones TNP Urine Blood TNP Urine Nitrite TNP Urine Bilirubin TNP Urine Urobilinogen TNP Ur Leukocyte Esterase TNP - Radiology Data Radiology results reviewed: Yes I reviewed the patient's radiology results. Chest X-Ray 08/09/19 13:41 IMPRESSION: Decreased vascular congestion compared to baseline of 06/21/2019. Interstitial opacities are present, mild pulmonary edema versus chronic pulmonary fibrosis. Stable enlargement of the cardiac silhouette/cardiomegaly. D/ / Parag Wilder MD / Parag Wilder MD Interpreting Provider: Parag Wilder MD Chest CTA 08/09/19 14:12 IMPRESSION: 1. CT PA: No pulmonary embolism. 2. Main pulmonary artery dilatation can be seen with pulmonary hypertension. 3. Pulmonary findings of congestive heart failure. 4. Dilatation of the ascending thoracic aorta. Vascular consultation recommended on nonemergent basis. 5. Enlarging spiculated nodules posterior right upper lobe concerning for malignancy. 6. Interval progression of mediastinal and bilateral hilar adenopathy presumably reflecting progression of metastatic disease. 7. Emphysema. 8. Cardiomegaly. 9. CT ABDOMEN/PELVIS: Acute colitis ascending colon and hepatic flexure may be on an ischemic, infectious or inflammatory basis. The superior mesenteric artery and celiac axis appear patent. 10. Enlarging AAA, now 3.3 cm. Recommend follow-up every 3 years. {Reference: J Am Timothy Radiol 2013;10:789-794.} 11. 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 12. Status post left to right fem-fem bypass with the bypass graft appearing occluded and proximal visualized portion of the right femoral artery appearing occluded. 13. Mild intra and extrahepatic bile duct dilatation status post cholecystectomy typical of reservoir effect. RECOMMENDATIONS: Vascular consultation recommended on nonemergent basis. AAA imaging follow-up every 3 years. D/ / Alli Carr / Alli Carr Interpreting Provider: Alli Carr Abdomen/Pelvis CT 08/09/19 15:16 IMPRESSION: 1. CT PA: No pulmonary embolism. 2. Main pulmonary artery dilatation can be seen with pulmonary hypertension. 3. Pulmonary findings of congestive heart failure. 4. Dilatation of the ascending thoracic aorta. Vascular consultation recommended on nonemergent basis. 5. Enlarging spiculated nodules posterior right upper lobe concerning for malignancy. 6. Interval progression of mediastinal and bilateral hilar adenopathy presumably reflecting progression of metastatic disease. 7. Emphysema. 8. Cardiomegaly. 9. CT ABDOMEN/PELVIS: Acute colitis ascending colon and hepatic flexure may be on an ischemic, infectious or inflammatory basis. The superior mesenteric artery and celiac axis appear patent. 10. Enlarging AAA, now 3.3 cm. Recommend follow-up every 3 years. {Reference: J Am Timothy Radiol 2013;10:789-794.} 11. 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 12. Status post left to right fem-fem bypass with the bypass graft appearing occluded and proximal visualized portion of the right femoral artery appearing occluded. 13. Mild intra and extrahepatic bile duct dilatation status post cholecystectomy typical of reservoir effect. RECOMMENDATIONS: Vascular consultation recommended on nonemergent basis. AAA imaging follow-up every 3 years. D/ / Alli Carr / Alil Carr Interpreting Provider: Alli Carr - EKG Data EKG #1 EKG attestation: Yes I reviewed and interpreted this EKG. EKG results narrative: EKG performed at 1330 with ventricular rate of 145, irregularly irregular rhythm with right axis deviation, there is some scattered baseline but appears the patient is in a flutter versus A. fib with RVR, there is no ST segment elevation, depression, there are nonspecific T-wave changes. When compared to old EKG performed in 07/02/2019 appears relatively unchanged. Attestation Statement - Attestation Attestation: I, Fred Santiago, examined this patient and my medical decision-making was reviewed with the INSPECTOR AND [employer] PACKAGER/PA/Advanced Practice Nurse/Resident Physician. I agree with the documented findings, disposition and treatment plan as described except to the extent set forth below. 68-year-old female presents emergency Department with concerns of difficulty in breathing, hematuria. Patient states she has felt unwell over the past 1-2 weeks. She is also noted that she has had hematuria over the past 2 weeks. Patient currently currently takes Eliquis for treatment of atrial fibrillation. She did not take her anticoagulation or rate limiting medication this morning. On her initial evaluation she is tachycardic to the 140s and 150s. She was given 50 mg of metoprolol extended release which is her morning medication which had improvement of her heart rate down to the 1 teens, she was given additional medication for better rate control. CT of the chest, abdomen, pelvis shows possible colitis, as well as congestive heart failure. 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 Patient was updated regarding CT results. We spoke with urology regarding the patient's hematuria. We spoke with vascular surgery kasie ding the patient's CT findings who stated that these were chronic and he will see the patient in the hospital. Patient will be admitted to the hospitalist for further care and evaluation.
[2019-08-09] MEDS ORDERED: 0.9 % Sodium Chloride 500 ML IVC ONE (13:41)
[2019-08-09 14:11] LABS: Basophils % 0.1 %; Eosinophils % 0.4 %; Hemoglobin 10.3 g/dL (11.5-15.4); Immature Granulocytes % 0.7 % (0-4); Mean Corpuscular HGB Conc 31.2 g/dL (31.6-35.5); Mean Corpuscular Hemoglobin 28.5 pg (28.0-33.3); Mean Corpuscular Volume 91.2 fL (83.0-100.0); Mean Platelet Volume 10.1 fL (9.4-12.4); Monocytes # 0.6 K/mcL (0.0-1.3); Neutrophils # 5.5 K/mcL (1.6-8.9); Platelet Count 217 K/mcL (140-400); Red Blood Count 3.62 M/mcL (3.82-4.97); Red Cell Distribution Width 19.2 % (11.5-14.5); Segmented Neutrophils % 76.8 %; White Blood Count 7.1 K/mcL (4.3-11.1)
[2019-08-09] MEDS ORDERED: Isovue-370 500 ML BOTTLE IVP ONE ×2 (14:12→15:16)
[2019-08-09 14:26] LABS: INR 1.9; Prothrombin Time 21.3 Seconds (9.4-12.1)
[2019-08-09] MEDS ORDERED: Metoprolol XL (24 HR) Succ 50 MG TAB.ER.24H PO ONE (14:27)
[2019-08-09 14:29] LABS: Activated Partial Thrombo Time 27.6 Seconds (26.0-36.0)
[2019-08-09 14:33] LABS: Alanine Aminotransferase 18 Units/L (7-52); Albumin 3.7 g/dL (3.5-5.7); Albumin/Globulin Ratio 1.3 (1.1-2.2); Alkaline Phosphatase 57 Units/L (34-104); Aspartate Amino Transferase 19 Units/L (13-39); BUN/Creatinine Ratio 22 (6-26); Bilirubin,Direct 0.3 mg/dL (0.0-0.2); Bilirubin,Indirect 0.7 mg/dL (0.0-1.2); Blood Urea Nitrogen 14 mg/dL (8-23); Calcium 9.7 mg/dL (8.6-10.3); Carbon Dioxide 26 mEq/L (23-29); Chloride 105 mEq/L (98-107); Globulin 2.9 g/dL (2.4-3.5); Glucose 194 mg/dL (70-105); Lipase 8 Units/L (11-82); Osmolality,Calculated 294 (280-300); Potassium 3.8 mEq/L (3.5-5.1); Sodium 139 mEq/L (136-145); Total Protein 6.6 g/dL (6.4-8.9); Troponin I 0.05 ng/mL (< 0.04); eGFR For African Americans > 60 (> 60); eGFR For Non-African Americans > 60 (> 60)
[2019-08-09] MEDS ORDERED: *HR* LORazepam 2 MG/ML VIAL IVP STA (14:36)
[2019-08-09] MEDS ORDERED: Aspirin 81 MG TAB.CHEW PO ONE (14:42)
[2019-08-09] MEDS ORDERED: Ipratropium/Albuterol Neb 3 ML IH ONE (14:46)
[2019-08-09] MEDS ORDERED: Apixaban 5 MG TABLET PO SCH (15:00)
[2019-08-09 15:02] LABS: Clarity,Urine Cloudy (Clear); Color,Urine Red (Yellow)
[2019-08-09] MEDS ORDERED: cefTRIAXone 1,000 MG in Water for inj. (sterile) 10 ML IVP ONE (15:33)
[2019-08-09] MEDS ORDERED: Piperacillin/Tazobactam 3.375 GM in 0.9 % Sodium Chloride Mini Bag 100 ML IVPB ONE (16:40)
--- NOTE | 2019-08-09 17:16 | Internal Med History&Physical ---
Date of Encounter: 08/09/19 Time of Encounter: 17:14 Internal Medicine - H&P: HPI Chief complaint: Shortness of breath Admitted From: Home Plans for Post Hospital Care: Home History of present illness: Ms. Costa is a 68 year old female started of atrial fibrillation, CAD s/p recent stents, possible lung malignancy, and chronic respiratory failure secondary to COPD (still smoking) and newly diagnosed HFrEF with EF of 35-40% on 2L of oxygen o/p presents with shortness of breath. Patient was recently discharged from the hospital 07/06 after presenting with respiratory failure and found to have new HFrEF with EF of 35-40%. Underwent LHC at that time and found to have severe 2 vessel coronary artery disease and had successful PTCA in the distal circumflex and open. Patient was initiated on aspirin and Plavix. Is also on Eliquis for afib. Was also found to have RUL pulmonary nodules concerning for malignancy, which was discussed with patient. Deweese good when she left the hospital and was discharged with home health. Since then, patient has had progressive dyspnea that has been worse over the last few days. Normally on 2 L of oxygen outpatient intermittently but has been wearing this constantly over the last few days. Denies orthopnea and lower extremity edema. Has chronic chest pain is no worse than usual. Has chronic cough is no worse than usual. Has had suprapubic abdominal pain and hematuria as well over the last few days. Urine sometimes red or brown color. Denies dysuria. Denies weight loss, night sweats, fevers chills. Past Med Surg Social Fam HX - Past Medical History Medical history: arthritis, atrial fibrillation, COPD, coronary artery disease, DVT, hyperlipidemia, hypertension, migraine, myocardial infarction, peripheral artery disease Additional medical history: CO with angioplasty, cardiac stents. PE Psychiatric history: anxiety, depression - Past Surgical History Surgical History: cholecystectomy, hysterectomy Additional surgical history: right knee replacement. 4 cardiac stents. 1 renal stent - Social History Smoking Status: Current every day smoker Smokeless Tobacco Status: No Alcohol use: none Drug use: none - Family History Mother Adopted: No Living Status: Hx Family Cardiac Disorders: Yes Hx Family Respiratory Disorders: Yes Hx Family Cancer: No Hx Family GI Disorders: No Hx Family Endocrine Disorder: Yes Hx Family Neuromuscular Disorders: No Hx Family Neurologic Disorders: No Hx Family HEENT Disorders: No Hx Family Autoimmune Disorders: No Father Adopted: No Living Status: Hx Family Cardiac Disorders: Yes Hx Family Respiratory Disorders: No Hx Family Cancer: Yes (Prostate) Hx Family GI Disorders: No Hx Family Endocrine Disorder: Yes (DM) Hx Family Neuromuscular Disorders: No Hx Family Neurologic Disorders: No Hx Family HEENT Disorders: No Hx Family Autoimmune Disorders: No Internal Medicine - H&P: Meds Albuterol Neb [Proventil Neb] 2.5 mg IH Q4HR PRN #100 vial.neb 02/15/18 [Rx] Aspirin 81 mg PO DAILY #30 tab.chew 02/15/18 [Rx] Atorvastatin Calcium [Lipitor] 80 mg PO HS #30 tablet 02/15/18 [Rx] Metformin HCl [Glucophage] 1,000 mg PO BID #60 tablet 02/15/18 [Rx] Ranolazine [Ranexa] 500 mg PO BID 30 Days #60 tab.er.12h 02/15/18 [Rx] Magnesium Oxide [Mag-Oxide Magnesium] 400 mg PO DAILY 02/27/19 [History] Tizanidine HCl 2 mg PO TID PRN 02/27/19 [History] Venlafaxine [Effexor] 75 mg PO BID 02/27/19 [History] Apixaban [Eliquis] 5 mg PO BID #60 tablet 03/04/19 [Rx] Albuterol Sulfate [Ventolin Hfa] 1 puff IH Q6H PRN 06/13/19 [History] Ergocalciferol (VITAMIN D2) [Vitamin D2] 50,000 unit PO TU 06/13/19 [History] Montelukast [Singulair] 10 mg PO DAILY 06/13/19 [History] Gabapentin [Neurontin] 300 mg PO TID #90 capsule 06/23/19 [Rx] clonazePAM [Klonopin] 0.5 mg PO TID PRN 4 Days #12 tablet 06/23/19 [Rx] Dicyclomine Hcl [Bentyl] 20 mg PO BID 07/02/19 [History] Omeprazole [PriLOSEC] 40 mg PO DAILY 07/02/19 [History] Ondansetron HCl 4 mg PO BID PRN 07/02/19 [History] Potassium Chloride [K-Tab ER] 10 meq PO DAILY 07/02/19 [History] Clopidogrel [Plavix] 75 mg PO DAILY #30 tablet 07/06/19 [Rx] Losartan [Cozaar] 12.5 mg PO DAILY #15 tablet 07/06/19 [Rx] Metoprolol XL (24 HR) Succ [Toprol XL] 50 mg PO BID #60 tab 07/06/19 [Rx] Furosemide [Lasix] 20 mg PO HS 08/09/19 [History] Furosemide [Lasix] 40 mg PO QAM 08/09/19 [History] Allergy/AdvReac Type Severity Reaction Status Date / Time No Known Allergies Allergy Verified 07/02/19 16:44 All Systems PM: A 10-system review of systems was performed and is negative for pertinent findings except as documented above in the HPI. Review of systems: General: Fevers / Chills / Weight loss / Night sweats Eyes: Blurry Vision / Change in Vision HENT: Ear Pain / Ear Drainage / Rhinorrhea / Throat Pain / Lymphadenopathy Cardiovascular: Chest Pain / Palpatations / Orthopnea / CRANE / Weight gain Lungs: Dyspnea / Wheezing / Cough / Sputum production / Pleurisy Abdomen: Abdomen pain / Abdominal distention / Nausea / Vomiting / Diarrhea / Const : Dysuria / Urinary Frequency / Urinary Urgency / Hematuria Extremities: LE edema / Ext pain / Ext erythema Skin: Rashes / Abrasions / Contusions Psych: Hallucinations / Anxiety / Depression Neuro: Weakness / Numbness / Tingling / Facial Droop / Dysphagia - Constitutional Vitals: Temp Pulse Resp BP Pulse Ox 97.6 F 115 22 136/102 92 08/09/19 13:14 08/09/19 16:34 08/09/19 16:34 08/09/19 16:34 08/09/19 16:34 Exam: General: Ill-appearing and in no acute distress. Appears chronically ill. HEENT: No erythema of posterior pharynx. No exudates. Lymphatics: No mandibular or cervical lymphadenopathy Cardiovascular: RApid rate and irregular. No murmurs. No chest wall tenderness. Lungs: Decreased lung sounds at the bases. Regular chest rise. Abdomen: Non-tender. No rebound or gaurding. Nl bowel sounds. Extremities: No edema. 2+ pulses radial and pedal pulses Skin: No rahses, abrasions, or contusions. Nl cap refill. Psych: Nl attention. A&Ox3 Neuro: chief sustainability officer II-XII intact. 5/5 strength. Sensation to light touch and pinprick intact. Internal Med - H&P Results - Labs CBC & Chem 7: 08/09/19 13:50 08/09/19 13:50 Labs: Short CBC 08/09/19 Range/Units 13:50 WBC 7.1 (4.3-11.1) K/mcL Hgb 10.3 L (11.5-15.4) g/dL Hct 33.0 L (35.3-44.9) % Plt Count 217 (140-400) K/mcL Neutrophils # 5.5 (1.6-8.9) K/mcL BMP 08/09/19 13:50 Sodium 139 Potassium 3.8 Chloride 105 Carbon Dioxide 26 BUN 14 Creatinine 0.65 Glucose 194 H Calcium 9.7 Cardiac Enzymes 08/09/19 Range/Units 13:50 Troponin I 0.05 H* (< 0.04) ng/mL Liver Function 08/09/19 Range/Units 13:50 Total Bilirubin 1.0 (0.3-1.0) mg/dL Direct Bilirubin 0.3 H (0.0-0.2) mg/dL AST 19 (13-39) Units/L ALT 18 (7-52) Units/L Alkaline Phosphatase 57 (34-104) Units/L Albumin 3.7 (3.5-5.7) g/dL Urine 08/09/19 Range/Units 14:30 Urine Color Red A (Yellow) Urine Clarity Cloudy A (Clear) Urine pH TNP Ur Specific Leonard TNP Urine Protein TNP Urine Glucose (UA) TNP - Impressions ITS Impressions Chest X-Ray 08/09/19 13:41 IMPRESSION: Decreased vascular congestion compared to baseline of 06/21/2019. Interstitial opacities are present, mild pulmonary edema versus chronic pulmonary fibrosis. Stable enlargement of the cardiac silhouette/cardiomegaly. D/ / Parag Wilder MD / Parag Wilder MD Interpreting Provider: Parag Wilder MD Chest CTA 08/09/19 14:12 IMPRESSION: 1. CT PA: No pulmonary embolism. 2. Main pulmonary artery dilatation can be seen with pulmonary hypertension. 3. Pulmonary findings of congestive heart failure. 4. Dilatation of the ascending thoracic aorta. Vascular consultation recommended on nonemergent basis. 5. Enlarging spiculated nodules posterior right upper lobe concerning for malignancy. 6. Interval progression of mediastinal and bilateral hilar adenopathy presumably reflecting progression of metastatic disease. 7. Emphysema. 8. Cardiomegaly. 9. CT ABDOMEN/PELVIS: Acute colitis ascending colon and hepatic flexure may be on an ischemic, infectious or inflammatory basis. The superior mesenteric artery and celiac axis appear patent. 10. Enlarging AAA, now 3.3 cm. Recommend follow-up every 3 years. {Reference: J Am Timothy Radiol 2013;10:789-794.} 11. 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 12. Status post left to right fem-fem bypass with the bypass graft appearing occluded and proximal visualized portion of the right femoral artery appearing occluded. 13. Mild intra and extrahepatic bile duct dilatation status post cholecystectomy typical of reservoir effect. RECOMMENDATIONS: Vascular consultation recommended on nonemergent basis. AAA imaging follow-up every 3 years. D/ / Alli Carr / Alli Carr Interpreting Provider: Alli Carr Abdomen/Pelvis CT 08/09/19 15:16 IMPRESSION: 1. CT PA: No pulmonary embolism. 2. Main pulmonary artery dilatation can be seen with pulmonary hypertension. 3. Pulmonary findings of congestive heart failure. 4. Dilatation of the ascending thoracic aorta. Vascular consultation recommended on nonemergent basis. 5. Enlarging spiculated nodules posterior right upper lobe concerning for malignancy. 6. Interval progression of mediastinal and bilateral hilar adenopathy presumably reflecting progression of metastatic disease. 7. Emphysema. 8. Cardiomegaly. 9. CT ABDOMEN/PELVIS: Acute colitis ascending colon and hepatic flexure may be on an ischemic, infectious or inflammatory basis. The superior mesenteric artery and celiac axis appear patent. 10. Enlarging AAA, now 3.3 cm. Recommend follow-up every 3 years. {Reference: J Am Timothy Radiol 2013;10:789-794.} 11. 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 12. Status post left to right fem-fem bypass with the bypass graft appearing occluded and proximal visualized portion of the right femoral artery appearing occluded. 13. Mild intra and extrahepatic bile duct dilatation status post cholecystectomy typical of reservoir effect. RECOMMENDATIONS: Vascular consultation recommended on nonemergent basis. AAA imaging follow-up every 3 years. D/ / Alli Carr / Alli Carr Interpreting Provider: Alli Carr - Assessment and Plan (1) Acute and chronic respiratory failure with hypoxia Current Visit: Yes Status: Acute Assessment and plan: Patient with hx of atrial fibrillation, CAD s/p recent stents, possible lung malignancy, and chronic respiratory failure secondary to COPD (still smoking) and newly diagnosed HFrEF with EF of 35-40% presents with shortness of breath and acute on chronic hypoxic respiratory failure in the setting of afib with RVR but otherwise stable vitals, no signs of hypervolemia or wheezing on exam, BNP of 3019, trop of .05, no leukocytosis, and CT imaging with considerable pathology that may explain patient's symptoms. -Shortness of breath and hypoxia likely multifactorial: No swelling or orthopnea but BNP of >3000k, which is up considerably from last admission Afib with RVR may be contributing to dyspnea Colitis may be contributing to dyspnea Progression of potential lung malignancy may be contributing to dyspnea -No evidence of PE on CTA and pt on AC -Consided ACS but trop elevation only mild and just recently re-perfused PLAN: - Lasix 40mg IV qd - Treat above underlying conditions - Trend trop (2) Concern about cancer without diagnosis Current Visit: Yes Status: Acute Assessment and plan: Spiculated nodules in the posterior right upper lobe and mediastinal and bilateral hilar adenopathy enlarging from last imaging study concerning for evolving malignancy. May be contributing to respiratory failure. - Will consult pulmonology for further w/u and potential bx (3) Hematuria Current Visit: Yes Status: Acute Assessment and plan: Associated with suprapubic abdominal pain. UA could not be completed because of so much blood in it. Denies dysuria. On triple therapy for heart conditions. - Will hold Eliquis - Zosyn - in case this is hematuria 2/2 acute cystitis - hard to say without UA - Urology consulted, appreciate recommendations Qualifiers: Hematuria type: gross Qualified Code(s): R31.0 - Gross hematuria (4) Colitis Current Visit: Yes Status: Acute Assessment and plan: CT with evidence of acute colitis of ascending colon and hepatic flexure. SMA and celiac patent. Patient has suprapubic abdominal pain but no tenderness on exam. Chronic diarrhea no worse than usual and no blood. Lactate normal. Vascular surgery was consulted in the ED and do not believe this is vascular in origin. Has chronic diarrhea no worse than usual. No blood. Has been eating a lot of tomatoes from her garden, which could cause infectious colitis pending on bacteria on tomatoes. - Stool culture and GI panel - Zosyn (5) CHF exacerbation Current Visit: No Status: Acute Assessment and plan: No swelling or orthopnea but BNP of >3000k, which is up considerably from last admission. Known ischemic cardiomyopathy. May have tachycardia-induced cardio myopathy as well from RVR. - Lasix 40mg IV qd - Consult to cardiology Qualifiers: Heart failure type: unspecified Qualified Code(s): I50.9 - Heart failure, unspecified (6) Atrial fibrillation with RVR Current Visit: No Status: Acute Assessment and plan: History of atrial fibrillation. Presented with rates in the 110s. Did not respond to oral metop in the ED. - Diltiazem ggt - Hold home Eliquis in setting of gross hematuria (7) CAD (coronary artery disease) Current Visit: Yes Status: Acute Assessment and plan: Patient underwent [facility] less admission that showed severe 2 vessel coronary artery disease and had successful PTCA in the distal circumflex and open. Patient was initiated on aspirin and Plavix. Is also on Eliquis. Given recent data from the [facility] Trial, would be reasonable to d/c ASA indefinitely and continue patient on just Eliquis and Plavix. This should be discussed with cardiology before discharge. - Continue ASA and Plavix Qualifiers: Coronary Disease-Associated Artery/Lesion type: [place] artery [place] vs. transplanted heart: [place] heart Associated angina: with stable angina Qualified Code(s): I25.118 - Atherosclerotic heart disease of [place] coronary artery with other forms of angina pectoris (8) Ascending aorta dilation Current Visit: Yes Status: Acute Assessment and plan: Patient can follow-up with vascular surgery as outpatient for this (9) Iliac artery dissection Current Visit: Yes Status: Acute Assessment and plan: Evident on CT abdomen and pelvis. This was discussed with vascular surgery in the ED and they do not think this is acute. - Follow up with vascular surgery outpatient for this (10) DVT prophylaxis Current Visit: Yes Status: Acute Assessment and plan: Hold in setting of gross hematuria
[2019-08-09] MEDS ORDERED: ONDANSETRON HCL 4 MG PO PRN (19:28)
[2019-08-09] MEDS ORDERED: tiZANidine 4 MG TABLET PO PRN (19:28)
[2019-08-09] MEDS ORDERED: Naloxone 0.4 MG/ML INJ IVP PRN (19:29)
[2019-08-09] MEDS ORDERED: Ondansetron ODT 4 MG TAB.RAPDIS SL PRN (19:29)
[2019-08-09] MEDS ORDERED: *HR* Promethazine 25 MG/ML VIAL IVP PRN (19:29)
[2019-08-09 20:57] LABS: Magnesium 1.6 mg/dL (1.6-2.6); Phosphorous 3.6 mg/dL (2.7-4.5)
[2019-08-09] MEDS: Gabapentin 300 MG CAPSULE PO SCH (21:16)
[2019-08-09] MEDS: Ranolazine 500 MG TAB.ER.12H PO SCH (21:16)
[2019-08-09] MEDS: Furosemide 40 MG/4 ML VIAL IVP SCH (21:16)
[2019-08-09] MEDS: clonazePAM 1 MG TABLET PO PRN (21:17)
[2019-08-09 21:18] LABS: Troponin I 0.04 ng/mL (< 0.04)
[2019-08-10] MEDS: Piperacillin/Tazobactam 3.375 GM in 0.9 % Sodium Chloride Mini Bag 100 ML IVPB SCH ×4 (00:06→23:53)
--- NOTE | 2019-08-10 07:56 | Cardiology Consult Note ---
<AngelMayra Campuzano - Last Filed: 08/10/19 07:48> Date of Encounter: 08/10/19 Time of Encounter: 07:00 Assessment and Plan (1) Atrial fibrillation with RVR Current Visit: Yes Status: Acute Patient presented with atrial fibrillation with RVR in the setting of CHF exacerbation. On cardizem gtt at 10 mg/hr--recommend weaning off cardizem as CCB not ideal d/t hx of HFrEF. Resume home BB, Toprol XL 50 mg BID. If rates remain uncontrolled, may need to consider digoxin. HR 90's-100's at bedside; goal HR less than 100. On Eliquis at home--has been held since admission d/t hematuria. (CHA2Ds Vasc=4) Pulmonary also consulted d/t enlarging spiculated lesions and possible biopsy. No dx of malignancy. Recommend resuming Eliquis when able. (2) CHF exacerbation Current Visit: No Status: Acute Patient presented with worsening shortness of breath over the past 1-2 weeks. Recent dx last month of HFrEF, LVEF 35-40%; s/p PTCA LCx, OM. No overt volume overload on exam, however BNP is 3019. Also with progression of spiculated RUL nodules and associated progressive med iastinal and bilateral hilar adenopathy. Agree with gentle IV diuresis. Renal function stable. Strict I&Os, daily weights, Na/fluid restricted diet. Continue BB, ARB. Qualifiers: Heart failure type: systolic Qualified Code(s): I50.23 - Acute on chronic systolic (congestive) heart failure (3) Coronary artery disease Current Visit: Yes Status: Chronic Hx of CAD s/p PCI. Recent [facility] 07/05/19 s/p PTCA to dLCx and OM. Continue asa, statin, BB, plavix. Mild troponin elevation likely secondary to demand ischemia, (0.05, 0.04) in the setting of acute CHF and colitis. No indication for cardiac rehab. Qualifiers: Coronary Disease-Associated Artery/Lesion type: [place] artery [place] vs. transplanted heart: [place] heart Associated angina: with stable angina Qualified Code(s): I25.118 - Atherosclerotic heart disease of [place] coronary artery with other forms of angina pectoris Discussion w patient/family: The assessment and plan as outlined above was discussed with the patient and/or family members who expressed understanding and agreement. All questions were answered. Thank you for involving us in the care of your patient. Please call with any questions. The patient will be discussed and reviewed with Dr. Mcwilliams; changes to be made accordingly. History of Present Illness Consult date: 08/10/19 Requesting physician: Mynor Amador Consult reason: Elevated troponin/BNP Chief complaint: Shortness of breath History of present illness: Ms. Costa is a 68 year old female with PMHx significant of CAD s/p PCI (recent PTCA last month), chronic respiratory failure d/t COPD, Afib, HLD, HTN, PE, and PAD who presented to the ED with complaints of shortness of breath over the past 1-2 weeks. She is on supplemental oxygen therapy at 2 LPM; reports used home nebulizers however symptoms did not improve which prompted ED evaluation. She was recently admitted and was found to have worsening systolic dysfunction, LVEF 35-40% and underwent LHC with PTCA at that time. Reports compliance with all medications and Na/fluid restriction diet at home. Reports chronic, unchanged chest pain. UPon arrival to ED, troponin was elevated at 0.05, BNP was 3019. Imaging demonstrated enlarging spiculated nodules (RUL) concerning for malignancy with progression of mediastinal and bilateral hilar adenopathy, dilatation of the ascending thoracic aorta. ECG demonstrated atrial fibrillation with RVR--she was started on a cardizem gtt. Recent CV testing: LHC 07/05/19: severe 2vCAD s/p PTCA in the dLCx and OM; otherwise stable, non- obstructive CAD TTE 07/03/19: LVF 35-40%, global and segmental LV systolic dysfunction TTE 02/28/19: LVEF 55%, mild cLVH, mild segmental LV systolic dysfunction, moderate LVDD, normal RV structure and function, severely dilated LA, mild MR, moderate PH: basal inferior wall was hypokinetic Past Med Surg Social Fam HX - Past Medical History Attestation: Yes The following information was validated with the patient. Source: patient, old records reviewed Medical history: arthritis, atrial fibrillation, COPD, coronary artery disease, DVT, hyperlipidemia, hypertension, migraine, myocardial infarction, peripheral artery disease Additional medical history: DC with angioplasty, cardiac stents. PE Psychiatric history: anxiety, depression - Past Surgical History Surgical History: angioplasty/stent, cholecystectomy, hysterectomy Additional surgical history: right knee replacement. 4 cardiac stents. 1 renal stent - Social History Smoking Status: Current every day smoker Smokeless Tobacco Status: No Alcohol use: none Drug use: none - Family History Mother Adopted: No Living Status: Hx Family Cardiac Disorders: Yes Hx Family Respiratory Disorders: Yes Hx Family Cancer: No Hx Family GI Disorders: No Hx Family Endocrine Disorder: Yes Hx Family Neuromuscular Disorders: No Hx Family Neurologic Disorders: No Hx Family HEENT Disorders: No Hx Family Autoimmune Disorders: No Father Adopted: No Living Status: Hx Family Cardiac Disorders: Yes Hx Family Respiratory Disorders: No Hx Family Cancer: Yes (Prostate) Hx Family GI Disorders: No Hx Family Endocrine Disorder: Yes (DM) Hx Family Neuromuscular Disorders: No Hx Family Neurologic Disorders: No Hx Family HEENT Disorders: No Hx Family Autoimmune Disorders: No Medications and Allergies Albuterol Neb [Proventil Neb] 2.5 mg IH Q4HR PRN #100 vial.neb 02/15/18 [Rx] Aspirin 81 mg PO DAILY #30 tab.chew 02/15/18 [Rx] Atorvastatin Calcium [Lipitor] 80 mg PO HS #30 tablet 02/15/18 [Rx] Metformin HCl [Glucophage] 1,000 mg PO BID #60 tablet 02/15/18 [Rx] Ranolazine [Ranexa] 500 mg PO BID 30 Days #60 tab.er.12h 02/15/18 [Rx] Magnesium Oxide [Mag-Oxide Magnesium] 400 mg PO DAILY 02/27/19 [History] Tizanidine HCl 2 mg PO TID PRN 02/27/19 [History] Venlafaxine [Effexor] 75 mg PO BID 02/27/19 [History] Apixaban [Eliquis] 5 mg PO BID #60 tablet 03/04/19 [Rx] Albuterol Sulfate [Ventolin Hfa] 1 puff IH Q6H PRN 06/13/19 [History] Ergocalciferol (VITAMIN D2) [Vitamin D2] 50,000 unit PO TU 06/13/19 [History] Montelukast [Singulair] 10 mg PO DAILY 06/13/19 [History] Gabapentin [Neurontin] 300 mg PO TID #90 capsule 06/23/19 [Rx] clonazePAM [Klonopin] 0.5 mg PO TID PRN 4 Days #12 tablet 06/23/19 [Rx] Dicyclomine Hcl [Bentyl] 20 mg PO BID 07/02/19 [History] Omeprazole [PriLOSEC] 40 mg PO DAILY 07/02/19 [History] Ondansetron HCl 4 mg PO BID PRN 07/02/19 [History] Potassium Chloride [K-Tab ER] 10 meq PO DAILY 07/02/19 [History] Clopidogrel [Plavix] 75 mg PO DAILY #30 tablet 07/06/19 [Rx] Losartan [Cozaar] 12.5 mg PO DAILY #15 tablet 07/06/19 [Rx] Metoprolol XL (24 HR) Succ [Toprol XL] 50 mg PO BID #60 tab 07/06/19 [Rx] Furosemide [Lasix] 20 mg PO HS 08/09/19 [History] Furosemide [Lasix] 40 mg PO QAM 08/09/19 [History] Allergy/AdvReac Type Severity Reaction Status Date / Time No Known Allergies Allergy Verified 07/02/19 16:44 All Systems Review: The remainder of the systems were reviewed and are negative - Cardiovascular Cardiovascular: as per HPI Physical Examination Vital Signs, Last 4 Hours Temp Pulse Resp BP Pulse Ox 08/10/19 07:35 99.5 F 103 20 129/83 91 General: Conversant (drowsy) Cardiac: Other (tachycardiac, irregularly irregular) Lungs: Other (coarse breath sounds; wheezing throughout) Neuro: Alert and responsive Abdomen: Soft Skin: No rashes noted on visualized skin Musculoskeletal: No Chest Wall Tenderness Extremities: No Edema, Normal Pulses Results 08/09/19 13:50 08/09/19 13:50 Lab Results 08/09/19 08/09/19 08/09/19 13:50 13:50 13:50 WBC 7.1 Hgb 10.3 L Hct 33.0 L Plt Count 217 INR 1.9 APTT 27.6 Sodium 139 Potassium 3.8 Chloride 105 Carbon Dioxide 26 BUN 14 Creatinine 0.65 Glucose 194 H Calcium 9.7 Magnesium Total Bilirubin 1.0 AST 19 ALT 18 Alkaline Phosphatase 57 Troponin I 0.05 H* B-Natriuretic Peptide Lipase 8 L 08/09/19 08/09/19 13:50 20:14 WBC Hgb Hct Plt Count INR APTT Sodium Potassium Chloride Carbon Dioxide BUN Creatinine Glucose Calcium Magnesium 1.6 Total Bilirubin AST ALT Alkaline Phosphatase Troponin I 0.04 H* B-Natriuretic Peptide 3019 H Lipase - Imaging and Cardiology Chest Xray: report reviewed Echo: report reviewed Cardiac cath: report reviewed Other Results: 12 hour tele: avg HR=99 afib - EKG Interpretation EKG results cardiology: personally reviewed Consult Discharge Plan - Plan Referrals: Maddie Morton [Primary Care Provider] - CHADS2-VASC Score - Score Age: 65-74 Sex: Female CHF History: Yes Hypertension history: Yes Stroke/TIA/Thromboembolism Hx: No Vascular disease history: Yes Diabetes history: No Score: 5 HAS-BLED Score - Score Elderly: Age>65 years Medication usage predisposing to bleeding: Antiplatelet agents, NSAIDs, Anticoagulants Score: 2 NYHAC - Classification Classification: Class 3 <Destiney Mcwilliams - Last Filed: 08/10/19 11:07> Date of Encounter: 08/10/19 - Attending Attestation I examined this patient and my medical decision-making was reviewed with the [employer]. I agree with the documented findings, disposition and treatment plan as described. Assessment and Plan Discussion w patient/family: The assessment and plan as outlined above was discussed with the patient and/or family members who expressed understanding and agreement. All questions were answered. Thank you for involving us in the care of your patient. Please call with any questions. History of Present Illness History of present illness: Ms. Costa is a 68 year old female All Systems Review: The remainder of the systems were reviewed and are negative Physical Examination Vital Signs, Last 4 Hours Temp Pulse Resp BP Pulse Ox 08/10/19 10:25 20 92 08/10/19 07:35 99.5 F 103 20 129/83 91 Results 08/10/19 07:50 08/10/19 07:50 Lab Results 08/09/19 08/09/19 08/09/19 13:50 13:50 13:50 WBC 7.1 Hgb 10.3 L Hct 33.0 L Plt Count 217 INR 1.9 APTT 27.6 Sodium 139 Potassium 3.8 Chloride 105 Carbon Dioxide 26 BUN 14 Creatinine 0.65 Glucose 194 H Calcium 9.7 Magnesium Total Bilirubin 1.0 AST 19 ALT 18 Alkaline Phosphatase 57 Troponin I 0.05 H* B-Natriuretic Peptide Lipase 8 L 08/09/19 08/09/19 08/10/19 13:50 20:14 07:50 WBC 7.1 Hgb 9.5 L Hct 30.7 L Plt Count 213 INR APTT Sodium Potassium Chloride Carbon Dioxide BUN Creatinine Glucose Calcium Magnesium 1.6 Total Bilirubin AST ALT Alkaline Phosphatase Troponin I 0.04 H* B-Natriuretic Peptide 3019 H Lipase 08/10/19 07:50 WBC Hgb Hct Plt Count INR APTT Sodium 137 Potassium 3.5 Chloride 101 Carbon Dioxide 28 BUN 13 Creatinine 0.66 Glucose 126 H Calcium 9.2 Magnesium Total Bilirubin AST ALT Alkaline Phosphatase Troponin I B-Natriuretic Peptide Lipase
[2019-08-10 08:20] LABS: Basophils % 0.1 %; Eosinophils # 0.2 K/mcL (0.0-0.6); Eosinophils % 2.7 %; Hematocrit 30.7 % (35.3-44.9); Hemoglobin 9.5 g/dL (11.5-15.4); Immature Granulocytes % 0.6 % (0-4); Lymphocytes # 1.4 K/mcL (0.6-4.6); Lymphocytes % 19.1 %; Mean Corpuscular HGB Conc 30.9 g/dL (31.6-35.5); Mean Corpuscular Hemoglobin 28.4 pg (28.0-33.3); Mean Corpuscular Volume 91.6 fL (83.0-100.0); Mean Platelet Volume 9.6 fL (9.4-12.4); Monocytes # 0.5 K/mcL (0.0-1.3); Monocytes % 6.3 %; Neutrophils # 5.1 K/mcL (1.6-8.9); Platelet Count 213 K/mcL (140-400); Red Blood Count 3.35 M/mcL (3.82-4.97); Segmented Neutrophils % 71.2 %; White Blood Count 7.1 K/mcL (4.3-11.1)
[2019-08-10 08:38] LABS: BUN/Creatinine Ratio 20 (6-26); Blood Urea Nitrogen 13 mg/dL (8-23); Calcium 9.2 mg/dL (8.6-10.3); Carbon Dioxide 28 mEq/L (23-29); Chloride 101 mEq/L (98-107); Glucose 126 mg/dL (70-105); Osmolality,Calculated 286 (280-300); Potassium 3.5 mEq/L (3.5-5.1); Sodium 137 mEq/L (136-145); eGFR For African Americans > 60 (> 60); eGFR For Non-African Americans > 60 (> 60)
--- NOTE | 2019-08-10 10:00 | Urology - Consult Note ---
Date of Encounter: 08/10/19 Time of Encounter: 09:57 - Assessment and Plan (1) Gross hematuria Current Visit: Yes Status: Acute Assessment and plan: Patient with continued gross hematuria according to the patient. At this time s he feels as though she is continuing to be able to empty her bladder. No indication at this time for catheter placement. We will continue to follow along. (2) Acute cystitis with hematuria Current Visit: Yes Status: Acute Assessment and plan: Patient currently on Zosyn. Awaiting urine culture. Urology CN:HPI Consult date: 08/10/19 Reason for consult Urology: Gross Hematuria Requesting physician: Rosa Bernabe History of present illness: Ilene is a 68-year-old female with a history of off-and-on gross hematuria for the past couple of months. Patient had been scheduled for outpatient cystoscopy with Dr. Arevalo the patient failed to keep appointment. Patient states that he r hematuria comes and goes. She did have a recent UTI which was treated in May. Patient is now admitted to the hospital secondary to increasing shortness of breath. CT scan revealed concerning areas for metastatic lung cancer. Patient also being evaluated by cardiology. Currently patient is having her Eliquis held secondary to gross hematuria. Past Med Surg Social Fam HX - Past Medical History Medical history: arthritis, atrial fibrillation, COPD, coronary artery disease, DVT, hyperlipidemia, hypertension, migraine, myocardial infarction, peripheral artery disease Additional medical history: [place] with angioplasty, cardiac stents. PE Psychiatric history: anxiety, depression - Past Surgical History Surgical History: angioplasty/stent, cholecystectomy, hysterectomy Additional surgical history: right knee replacement. 4 cardiac stents. 1 renal stent - Social History Smoking Status: Current every day smoker Smokeless Tobacco Status: No Alcohol use: none Drug use: none - Family History Mother Adopted: No Living Status: Hx Family Cardiac Disorders: Yes Hx Family Respiratory Disorders: Yes Hx Family Cancer: No Hx Family GI Disorders: No Hx Family Endocrine Disorder: Yes Hx Family Neuromuscular Disorders: No Hx Family Neurologic Disorders: No Hx Family HEENT Disorders: No Hx Family Autoimmune Disorders: No Father Adopted: No Living Status: Hx Family Cardiac Disorders: Yes Hx Family Respiratory Disorders: No Hx Family Cancer: Yes (Prostate) Hx Family GI Disorders: No Hx Family Endocrine Disorder: Yes (DM) Hx Family Neuromuscular Disorders: No Hx Family Neurologic Disorders: No Hx Family HEENT Disorders: No Hx Family Autoimmune Disorders: No Medications and Allergies Albuterol Neb [Proventil Neb] 2.5 mg IH Q4HR PRN #100 vial.neb 02/15/18 [Rx] Aspirin 81 mg PO DAILY #30 tab.chew 02/15/18 [Rx] Atorvastatin Calcium [Lipitor] 80 mg PO HS #30 tablet 02/15/18 [Rx] Metformin HCl [Glucophage] 1,000 mg PO BID #60 tablet 02/15/18 [Rx] Ranolazine [Ranexa] 500 mg PO BID 30 Days #60 tab.er.12h 02/15/18 [Rx] Magnesium Oxide [Mag-Oxide Magnesium] 400 mg PO DAILY 02/27/19 [History] Tizanidine HCl 2 mg PO TID PRN 02/27/19 [History] Venlafaxine [Effexor] 75 mg PO BID 02/27/19 [History] Apixaban [Eliquis] 5 mg PO BID #60 tablet 03/04/19 [Rx] Albuterol Sulfate [Ventolin Hfa] 1 puff IH Q6H PRN 06/13/19 [History] Ergocalciferol (VITAMIN D2) [Vitamin D2] 50,000 unit PO TU 06/13/19 [History] Montelukast [Singulair] 10 mg PO DAILY 06/13/19 [History] Gabapentin [Neurontin] 300 mg PO TID #90 capsule 06/23/19 [Rx] clonazePAM [Klonopin] 0.5 mg PO TID PRN 4 Days #12 tablet 06/23/19 [Rx] Dicyclomine Hcl [Bentyl] 20 mg PO BID 07/02/19 [History] Omeprazole [PriLOSEC] 40 mg PO DAILY 07/02/19 [History] Ondansetron HCl 4 mg PO BID PRN 07/02/19 [History] Potassium Chloride [K-Tab ER] 10 meq PO DAILY 07/02/19 [History] Clopidogrel [Plavix] 75 mg PO DAILY #30 tablet 07/06/19 [Rx] Losartan [Cozaar] 12.5 mg PO DAILY #15 tablet 07/06/19 [Rx] Metoprolol XL (24 HR) Succ [Toprol XL] 50 mg PO BID #60 tab 07/06/19 [Rx] Furosemide [Lasix] 20 mg PO HS 08/09/19 [History] Furosemide [Lasix] 40 mg PO QAM 08/09/19 [History] Allergy/AdvReac Type Severity Reaction Status Date / Time No Known Allergies Allergy Verified 07/02/19 16:44 Review of Systems - Constitutional no chills, no fever(s) - EENT Nose, mouth and throat: no dizziness, no sore throat - Cardiovascular dyspnea, no chest pain - Respiratory dyspnea - Gastrointestinal no abdominal pain, no nausea, no vomiting - Genitourinary Genitourinary: as per HPI - Musculoskeletal no back pain - Integumentary no erythema - Neurological no confusion - Psychiatric no anxiety - Hematologic/Lymphatic no easy bleeding, no easy bruising, no lymphadenopathy Exam Initial Vital Signs Temp Pulse Resp BP Pulse Ox 97.6 F 138 20 109/82 97 08/09/19 13:14 08/09/19 13:14 08/09/19 13:14 08/09/19 13:14 08/09/19 13:14 General/Neuological: alert and oriented x 3 Eyes: normal pupils, non-icteric Neck: no lymphadenopathy noted, supple to touch Cardiovascular: No JVD Respiratory: normal respiratory effort on supplemental oxygen ABD: soft, nontender, no masses palpated, good bowel sounds Back: no pain on percussion bilaterally Skin: no rashes noted Musculoskeletal: normal gait, FROMx4 Urology Results - Labs 08/10/19 07:50 08/10/19 07:50 Abnormal lab results RBC 3.35 M/mcL (3.82-4.97) L 08/10/19 07:50 Hgb 9.5 g/dL (11.5-15.4) L 08/10/19 07:50 Hct 30.7 % (35.3-44.9) L 08/10/19 07:50 MCHC 30.9 g/dL (31.6-35.5) L 08/10/19 07:50 RDW 19.0 % (11.5-14.5) H 08/10/19 07:50 PT 21.3 Seconds (9.4-12.1) H 08/09/19 13:50 Glucose 126 mg/dL (70-105) H 08/10/19 07:50 POC Glucose 159 mg/dL (70-99) H 08/09/19 20:26 Direct Bilirubin 0.3 mg/dL (0.0-0.2) H 08/09/19 13:50 Troponin I 0.04 ng/mL (< 0.04) H* 08/09/19 20:14 B-Natriuretic Peptide 3019 pg/mL (Less than 100) H 08/09/19 13:50 Lipase 8 Units/L (11-82) L 08/09/19 13:50 Ur Specimen Adequacy See below A 08/09/19 14:30 Urine Color Red (Yellow) A 08/09/19 14:30 Urine Clarity Cloudy (Clear) A 08/09/19 14:30 Diabetes panel 08/09/19 08/10/19 Range/Units 13:50 07:50 Sodium 139 137 (136-145) mEq/L Potassium 3.8 3.5 (3.5-5.1) mEq/L Chloride 105 101 (98-107) mEq/L Carbon Dioxide 26 28 (23-29) mEq/L BUN 14 13 (8-23) mg/dL Creatinine 0.65 0.66 (0.60-1.20) mg/dL Glucose 194 H 126 H (70-105) mg/dL Calcium 9.7 9.2 (8.6-10.3) mg/dL AST 19 (13-39) Units/L ALT 18 (7-52) Units/L Alkaline Phosphatase 57 (34-104) Units/L Albumin 3.7 (3.5-5.7) g/dL Calcium panel 08/09/19 08/09/19 08/10/19 Range/Units 13:50 20:14 07:50 Calcium 9.7 9.2 (8.6-10.3) mg/dL Phosphorus 3.6 (2.7-4.5) mg/dL Albumin 3.7 (3.5-5.7) g/dL Pituitary panel 08/09/19 08/10/19 Range/Units 13:50 07:50 Sodium 139 137 (136-145) mEq/L Potassium 3.8 3.5 (3.5-5.1) mEq/L Chloride 105 101 (98-107) mEq/L Carbon Dioxide 26 28 (23-29) mEq/L BUN 14 13 (8-23) mg/dL Creatinine 0.65 0.66 (0.60-1.20) mg/dL Glucose 194 H 126 H (70-105) mg/dL Calcium 9.7 9.2 (8.6-10.3) mg/dL Adrenal panel 08/09/19 08/10/19 Range/Units 13:50 07:50 Sodium 139 137 (136-145) mEq/L Potassium 3.8 3.5 (3.5-5.1) mEq/L Chloride 105 101 (98-107) mEq/L Carbon Dioxide 26 28 (23-29) mEq/L BUN 14 13 (8-23) mg/dL Creatinine 0.65 0.66 (0.60-1.20) mg/dL Glucose 194 H 126 H (70-105) mg/dL Calcium 9.7 9.2 (8.6-10.3) mg/dL Total Bilirubin 1.0 (0.3-1.0) mg/dL AST 19 (13-39) Units/L ALT 18 (7-52) Units/L Alkaline Phosphatase 57 (34-104) Units/L Albumin 3.7 (3.5-5.7) g/dL All other labs normal. - Imaging CT scan - abdomen: image reviewed CT scan - pelvis: image reviewed (CT scan reviewed which revealed no obvious large clots and patient bladder.) Consult Discharge Plan - Plan Referrals: Maddie Morton [Primary Care Provider] -
[2019-08-10] MEDS: Furosemide 40 MG/4 ML VIAL IVP SCH (10:16)
[2019-08-10] MEDS: Ranolazine 500 MG TAB.ER.12H PO SCH ×2 (10:16→21:21)
[2019-08-10] MEDS: Metoprolol XL (24 HR) Succ 50 MG TAB.ER.24H PO SCH ×2 (10:16→21:21)
[2019-08-10] MEDS: Gabapentin 300 MG CAPSULE PO SCH ×3 (10:17→21:21)
[2019-08-10] MEDS: Magnesium Oxide 400 MG TABLET PO SCH (10:17)
[2019-08-10] MEDS: Aspirin 81 MG TAB.CHEW PO SCH (10:17)
[2019-08-10] MEDS: Albuterol 2.5 MG/3 ML NEBULIZER IH PRN ×2 (10:23→20:14)
[2019-08-10] MEDS: clonazePAM 1 MG TABLET PO PRN ×2 (11:01→21:26)
--- NOTE | 2019-08-10 11:39 | Internal Med Progress Note ---
Hospitalist Progress Note - Encounter Date of Encounter: 08/10/19 Time of Encounter: 11:10 - Subjective Interval History: Patient was seen this morning, she is a complaining about shortness of breath. She is to have hematuria. She denied chest pain or palpitation. She denied any abdominal pain similar to her pain when she came in. - Exam Vitals: Temp Pulse Resp BP Pulse Ox 99.5 F 103 20 129/83 92 08/10/19 07:35 08/10/19 07:35 08/10/19 10:25 08/10/19 07:35 08/10/19 10:25 Exam: General: Ill-appearing and in no acute distress. Appears chronically ill. Cachectic HEENT: No erythema of posterior pharynx. No exudates. Lymphatics: No mandibular or cervical lymphadenopathy Cardiovascular: Normal rate and irregular rhythm. No murmurs. No chest wall ten derness. Lungs: Decreased lung sounds at the bases. Bibasilar crackles Abdomen: Non-tender. No rebound or gaurding. Nl bowel sounds. Extremities: No edema. 2+ pulses radial and pedal pulses Skin: No rahses, abrasions, or contusions. Nl cap refill. Psych: Nl attention. A&Ox3 Neuro: clearance rep II-XII intact. 5/5 strength. Sensation to light touch and pinprick intact. - Assessment and Plan (1) CAD (coronary artery disease) Current Visit: Yes Status: Acute (2) Acute and chronic respiratory failure with hypoxia Current Visit: Yes Status: Acute (3) Colitis Current Visit: Yes Status: Acute (4) Concern about cancer without diagnosis Current Visit: Yes Status: Acute (5) Ascending aorta dilation Current Visit: Yes Status: Acute (6) Hematuria Current Visit: Yes Status: Acute (7) Iliac artery dissection Current Visit: Yes Status: Acute (8) Atrial fibrillation with RVR Current Visit: Yes Status: Acute (9) DVT prophylaxis Current Visit: Yes Status: Acute (10) CHF exacerbation Current Visit: No Status: Acute - Summary of Assessment and Plan Summary of Assessment and Plan: 68-year-old female with history of A. fib, HFrEF, PE, HTN,PAD, diabetes who was admitted to the hospital due to GROSS hematuria. Gross hematuria: For 2 weeks, was supposed to follow with urology as outpatient for cytoscopy but didn't. Pending UCx. Brandiequis on Hold. Urology is following. High risk for malignancy given her prolonged smoking hx. Atrial fibrillation: On diltiazem drip, cardiology is consulted. Continue home dose metoprolol (she wasn't able to refill her increased dose from last discharge). Wean off Cardizem drip as tolerated. Colitis: Found on CT scan in the ascending colon and hepatic flexure which could represent ischemia, infection or inflammatory, on Zosyn, GI panel is pending. patient denied any abdominal pain Decompensated HFrEF: likely from HER RVR. Continue IV Lasix, monitor input and output. Limited alcohol with EF 35-40%. Troponin elevation: Peak to 0.04, likely type II event due to tachycardia. CAD status post PCI 07/05/19: Continue Plavix, asa, BB and Lipitor. Patient is asymptomatic Questionable malignancy: Right upper lobe enlarging nodules concerning for malignancy with interval progression of mediastinal and bilateral hilar lymphadenopathy likely regression of metastatic disease, she smokes 23 packs of cigarettes for 50 years. Pulmonary is consulted, prognosis is guarding. Will consult PALLIATIVE team. Abdominal AAA: Measures 3.3 cm, follow-up is recommended in 3 years, vascular surgery is consulted. 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 Ascending aorta dilation: Consult placed for vascular surgery. Patient is at high risk of complications and her prognosis is guarding. I believe that goals of cares discussion is important at this point given all her comorbidities and above findings. We will continue to follow. I reviewed independently all laboratory workup, pertinent images including x- rays and CT scans. I also reviewed independently and EKGs and my findings are in the body of my assessment and plan. I ordered the laboratory workup and images myself. I discussed finding with patient's, their families, RN's and consultants involved in the care of the patient. - Time Spent with Patient Total time spent is greater than 50% in coordination of care (as documented) at patient's floor/unit and/or counseling patient: Greater than 35 minutes Plan of Care Discussed with: patient Internal Medicine: Result - Labs CBC & Chem 7: 08/10/19 07:50 08/10/19 07:50 Labs: Short CBC 08/09/19 08/10/19 Range/Units 13:50 07:50 WBC 7.1 7.1 (4.3-11.1) K/mcL Hgb 10.3 L 9.5 L (11.5-15.4) g/dL Hct 33.0 L 30.7 L (35.3-44.9) % Plt Count 217 213 (140-400) K/mcL Neutrophils # 5.5 5.1 (1.6-8.9) K/mcL BMP 08/09/19 08/10/19 13:50 07:50 Sodium 139 137 Potassium 3.8 3.5 Chloride 105 101 Carbon Dioxide 26 28 BUN 14 13 Creatinine 0.65 0.66 Glucose 194 H 126 H Calcium 9.7 9.2 Cardiac Enzymes 08/09/19 08/09/19 Range/Units 13:50 20:14 Troponin I 0.05 H* 0.04 H* (< 0.04) ng/mL Liver Function 08/09/19 Range/Units 13:50 Total Bilirubin 1.0 (0.3-1.0) mg/dL Direct Bilirubin 0.3 H (0.0-0.2) mg/dL AST 19 (13-39) Units/L ALT 18 (7-52) Units/L Alkaline Phosphatase 57 (34-104) Units/L Albumin 3.7 (3.5-5.7) g/dL Urine 08/09/19 Range/Units 14:30 Urine Color Red A (Yellow) Urine Clarity Cloudy A (Clear) Urine pH TNP Ur Specific [place] TNP Urine Protein TNP Urine Glucose (UA) TNP - ABG Interpretation ABG results: PT/INR, D-dimer PT 21.3 Seconds (9.4-12.1) H 08/09/19 13:50 - Impressions Impressions Chest X-Ray 08/09/19 13:41 IMPRESSION: Decreased vascular congestion compared to baseline of 06/21/2019. Interstitial opacities are present, mild pulmonary edema versus chronic pulmonary fibrosis. Stable enlargement of the cardiac silhouette/cardiomegaly. D/ / Parag Wilder MD / Parag Wilder MD Interpreting Provider: Parag Wilder MD Chest CTA 08/09/19 14:12 IMPRESSION: 1. CT PA: No pulmonary embolism. 2. Main pulmonary artery dilatation can be seen with pulmonary hypertension. 3. Pulmonary findings of congestive heart failure. 4. Dilatation of the ascending thoracic aorta. Vascular consultation recommended on nonemergent basis. 5. Enlarging spiculated nodules posterior right upper lobe concerning for malignancy. 6. Interval progression of mediastinal and bilateral hilar adenopathy presumably reflecting progression of metastatic disease. 7. Emphysema. 8. Cardiomegaly. 9. CT ABDOMEN/PELVIS: Acute colitis ascending colon and hepatic flexure may be on an ischemic, infectious or inflammatory basis. The superior mesenteric artery and celiac axis appear patent. 10. Enlarging AAA, now 3.3 cm. Recommend follow-up every 3 years. {Reference: J Am Timothy Radiol 2013;10:789-794.} 11. 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 12. Status post left to right fem-fem bypass with the bypass graft appearing occluded and proximal visualized portion of the right femoral artery appearing occluded. 13. Mild intra and extrahepatic bile duct dilatation status post cholecystectomy typical of reservoir effect. RECOMMENDATIONS: Vascular consultation recommended on nonemergent basis. AAA imaging follow-up every 3 years. D/ / Alli Carr / Alli Carr Interpreting Provider: Alli Carr Abdomen/Pelvis CT 08/09/19 15:16 IMPRESSION: 1. CT PA: No pulmonary embolism. 2. Main pulmonary artery dilatation can be seen with pulmonary hypertension. 3. Pulmonary findings of congestive heart failure. 4. Dilatation of the ascending thoracic aorta. Vascular consultation recommended on nonemergent basis. 5. Enlarging spiculated nodules posterior right upper lobe concerning for malignancy. 6. Interval progression of mediastinal and bilateral hilar adenopathy presumably reflecting progression of metastatic disease. 7. Emphysema. 8. Cardiomegaly. 9. CT ABDOMEN/PELVIS: Acute colitis ascending colon and hepatic flexure may be on an ischemic, infectious or inflammatory basis. The superior mesenteric artery and celiac axis appear patent. 10. Enlarging AAA, now 3.3 cm. Recommend follow-up every 3 years. {Reference: J Am Timothy Radiol 2013;10:789-794.} 11. 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 12. Status post left to right fem-fem bypass with the bypass graft appearing occluded and proximal visualized portion of the right femoral artery appearing occluded. 13. Mild intra and extrahepatic bile duct dilatation status post cholecystectomy typical of reservoir effect. RECOMMENDATIONS: Vascular consultation recommended on nonemergent basis. AAA imaging follow-up every 3 years. D/ / Alli Carr / Alli Carr Interpreting Provider: Alli Carr Consult Discharge Plan - Plan Referrals: Maddie Morton [Primary Care Provider] - (1) CAD (coronary artery disease) Qualifiers: Coronary Disease-Associated Artery/Lesion type: [place] artery [place] vs. transplanted heart: [place] heart Associated angina: with stable angina Qualified Code(s): I25.118 - Atherosclerotic heart disease of [place] coronary artery with other forms of angina pectoris (6) Hematuria Qualifiers: Hematuria type: gross Qualified Code(s): R31.0 - Gross hematuria (10) CHF exacerbation Qualifiers: Heart failure type: systolic Qualified Code(s): I50.23 - Acute on chronic systolic (congestive) heart failure
--- NOTE | 2019-08-10 12:42 | Pulmonology Consult Note ---
Date of Encounter: 08/10/19 Time of Encounter: 12:00 Assessment and Plan (1) Acute respiratory failure with hypoxia Current Visit: Yes Status: Acute Patient is in no acute hypoxic respiratory failure most likely due to acute exacerbation of systolic heart failure will increase dialysis at least for 48 hours before we can evaluate for this possible lung malignancy patient might have some metastatic disease. Will need to optimize before endobronchial ultrasound most likely on Monday. Patient had the ballooning of stented lesion last month patient denies currently any chest pain chest tightness denies any palpitation or syncope. Pulmonary was consult that for his lung nodules and mediastinal lymphadenopathy. (2) Acute exacerbation of CHF (congestive heart failure) Current Visit: Yes Status: Acute Patient has acute on chronic systolic heart failure exacerbation fluid restr iction with diuresis. Diuresis according to primary team will reevaluate intake output tomorrow Qualifiers: Heart failure type: systolic Qualified Code(s): I50.23 - Acute on chronic systolic (congestive) heart failure (3) Lung nodule Current Visit: Yes Status: Acute Patient has this spiculated nodule with mediastinal lymphadenopathy concerning for metastatic lung cancer patient will need endobronchial ultrasound under general anesthesia patient needs to be optimized for the procedure. Hold off Eliquis for anticipated procedure. To continue aspirin and Plavix (4) Mediastinal lymphadenopathy Current Visit: Yes Status: Acute Patient will need endobronchial ultrasound under general anesthesia (5) COPD (chronic obstructive pulmonary disease) Current Visit: No Status: Chronic Patient COPD symptoms are at baseline to continue bronchodilators no need of steroids. Qualifiers: COPD type: emphysema Emphysema type: unspecified Qualified Code(s): J43.9 - Emphysema, unspecified (6) Pneumonia Current Visit: Yes Status: Acute Patient has bilateral bibasilar infiltrates agree with the covering with the broad-spectrum antibiotics for now Qualifiers: Pneumonia type: due to unspecified organism Laterality: bilateral Lung location: unspecified part of lung Qualified Code(s): J18.9 - Pneumonia, unspecified organism Past Med Surg Social Fam HX - Past Medical History Medical history: arthritis, atrial fibrillation, COPD, coronary artery disease, DVT, hyperlipidemia, hypertension, migraine, myocardial infarction, peripheral artery disease Additional medical history: [place] with angioplasty, cardiac stents. PE Psychiatric history: anxiety, depression - Past Surgical History Surgical History: angioplasty/stent, cholecystectomy, hysterectomy Additional surgical history: right knee replacement. 4 cardiac stents. 1 renal stent - Social History Smoking Status: Current every day smoker Smokeless Tobacco Status: No Alcohol use: none Drug use: none - Family History Mother Adopted: No Living Status: Hx Family Cardiac Disorders: Yes Hx Family Respiratory Disorders: Yes Hx Family Cancer: No Hx Family GI Disorders: No Hx Family Endocrine Disorder: Yes Hx Family Neuromuscular Disorders: No Hx Family Neurologic Disorders: No Hx Family HEENT Disorders: No Hx Family Autoimmune Disorders: No Father Adopted: No Living Status: Hx Family Cardiac Disorders: Yes Hx Family Respiratory Disorders: No Hx Family Cancer: Yes (Prostate) Hx Family GI Disorders: No Hx Family Endocrine Disorder: Yes (DM) Hx Family Neuromuscular Disorders: No Hx Family Neurologic Disorders: No Hx Family HEENT Disorders: No Hx Family Autoimmune Disorders: No Medications and Allergies Albuterol Neb [Proventil Neb] 2.5 mg IH Q4HR PRN #100 vial.neb 02/15/18 [Rx] Aspirin 81 mg PO DAILY #30 tab.chew 02/15/18 [Rx] Atorvastatin Calcium [Lipitor] 80 mg PO HS #30 tablet 02/15/18 [Rx] Metformin HCl [Glucophage] 1,000 mg PO BID #60 tablet 02/15/18 [Rx] Ranolazine [Ranexa] 500 mg PO BID 30 Days #60 tab.er.12h 02/15/18 [Rx] Magnesium Oxide [Mag-Oxide Magnesium] 400 mg PO DAILY 02/27/19 [History] Tizanidine HCl 2 mg PO TID PRN 02/27/19 [History] Venlafaxine [Effexor] 75 mg PO BID 02/27/19 [History] Apixaban [Eliquis] 5 mg PO BID #60 tablet 03/04/19 [Rx] Albuterol Sulfate [Ventolin Hfa] 1 puff IH Q6H PRN 06/13/19 [History] Ergocalciferol (VITAMIN D2) [Vitamin D2] 50,000 unit PO TU 06/13/19 [History] Montelukast [Singulair] 10 mg PO DAILY 06/13/19 [History] Gabapentin [Neurontin] 300 mg PO TID #90 capsule 06/23/19 [Rx] clonazePAM [Klonopin] 0.5 mg PO TID PRN 4 Days #12 tablet 06/23/19 [Rx] Dicyclomine Hcl [Bentyl] 20 mg PO BID 07/02/19 [History] Omeprazole [PriLOSEC] 40 mg PO DAILY 07/02/19 [History] Ondansetron HCl 4 mg PO BID PRN 07/02/19 [History] Potassium Chloride [K-Tab ER] 10 meq PO DAILY 07/02/19 [History] Clopidogrel [Plavix] 75 mg PO DAILY #30 tablet 07/06/19 [Rx] Losartan [Cozaar] 12.5 mg PO DAILY #15 tablet 07/06/19 [Rx] Metoprolol XL (24 HR) Succ [Toprol XL] 50 mg PO BID #60 tab 07/06/19 [Rx] Furosemide [Lasix] 20 mg PO HS 08/09/19 [History] Furosemide [Lasix] 40 mg PO QAM 08/09/19 [History] Allergy/AdvReac Type Severity Reaction Status Date / Time No Known Allergies Allergy Verified 07/02/19 16:44 All Systems: The remainder of the systems were reviewed and are negative Physical Examination Vital Signs: Vital Signs, Last 4 Hours Temp Pulse Resp BP Pulse Ox 08/10/19 11:44 98.7 F 110 22 123/89 83 08/10/19 10:25 20 92 Results - Laboratory Findings CBC and BMP: 08/10/19 07:50 08/10/19 07:50 PT/INR, D-dimer PT 21.3 Seconds (9.4-12.1) H 08/09/19 13:50 Abnormal lab findings: Abnormal lab results RBC 3.35 M/mcL (3.82-4.97) L 08/10/19 07:50 Hgb 9.5 g/dL (11.5-15.4) L 08/10/19 07:50 Hct 30.7 % (35.3-44.9) L 08/10/19 07:50 MCHC 30.9 g/dL (31.6-35.5) L 08/10/19 07:50 RDW 19.0 % (11.5-14.5) H 08/10/19 07:50 PT 21.3 Seconds (9.4-12.1) H 08/09/19 13:50 Glucose 126 mg/dL (70-105) H 08/10/19 07:50 POC Glucose 159 mg/dL (70-99) H 08/09/19 20:26 Direct Bilirubin 0.3 mg/dL (0.0-0.2) H 08/09/19 13:50 Troponin I 0.04 ng/mL (< 0.04) H* 08/09/19 20:14 B-Natriuretic Peptide 3019 pg/mL (Less than 100) H 08/09/19 13:50 Lipase 8 Units/L (11-82) L 08/09/19 13:50 Ur Specimen Adequacy See below A 08/09/19 14:30 Urine Color Red (Yellow) A 08/09/19 14:30 Urine Clarity Cloudy (Clear) A 08/09/19 14:30 - Clinical Findings Intake & Output: Intake & Output 08/09/19 08/10/19 08/10/19 23:59 07:59 15:59 Intake Total 822.1 / 822.1 144 / 264 120 / 264 Output Total 1700 / 1700 300 / 700 400 / 700 Balance -877.9 / -877.9 -156 / -436 -280 / -436 Weight 56.9 kg 50 kg Consult Discharge Plan - Plan Referrals: Maddie Morton [Primary Care Provider] -
[2019-08-10] MEDS ORDERED: Metoprolol XL (24 HR) Succ 50 MG TAB.ER.24H PO ONE (14:12)
[2019-08-10] MEDS: Levalbuterol 1 PUFF INHALER IH SCH ×2 (15:44→22:33)
[2019-08-11] MEDS: Levalbuterol 1 PUFF INHALER IH SCH ×3 (03:57→16:11)
[2019-08-11 06:50] LABS: Hematocrit 31.6 % (35.3-44.9); Hemoglobin 9.9 g/dL (11.5-15.4); Mean Corpuscular HGB Conc 31.3 g/dL (31.6-35.5); Mean Corpuscular Hemoglobin 28.9 pg (28.0-33.3); Mean Corpuscular Volume 92.4 fL (83.0-100.0); Mean Platelet Volume 9.7 fL (9.4-12.4); Platelet Count 216 K/mcL (140-400); Red Blood Count 3.42 M/mcL (3.82-4.97); Red Cell Distribution Width 18.8 % (11.5-14.5); White Blood Count 6.8 K/mcL (4.3-11.1)
[2019-08-11 07:13] LABS: BUN/Creatinine Ratio 29 (6-26); Blood Urea Nitrogen 19 mg/dL (8-23); Calcium 9.2 mg/dL (8.6-10.3); Carbon Dioxide 30 mEq/L (23-29); Chloride 107 mEq/L (98-107); Glucose 149 mg/dL (70-105); Osmolality,Calculated 301 (280-300); Potassium 3.4 mEq/L (3.5-5.1); Sodium 143 mEq/L (136-145); eGFR For African Americans > 60 (> 60); eGFR For Non-African Americans > 60 (> 60)
[2019-08-11] MEDS ORDERED: Potassium Chloride Elixir 20 MEQ/15 ML UDC PO ONE (07:26)
--- NOTE | 2019-08-11 08:25 | Urology Progress Note ---
Date of Encounter: 08/11/19 Time of Encounter: 08:24 - Assessment and Plan (1) Gross hematuria Current Visit: Yes Status: Acute Assessment and plan: Patient's hematuria continues according to the patient. Patient voiding okay wi thout clots and need for catheter at this time. (2) Acute cystitis with hematuria Current Visit: Yes Status: Acute Assessment and plan: Awaiting culture at this time. Progress Note Narrative: Patient seen this morning. Patient has been evaluated by pulmonology for possible metastatic lung disease. Patient has continued with hematuria per patient that she is able to void without difficulty at this time. Urine cultures pending at this time Objective Initial Vital Signs Temp Pulse Resp BP Pulse Ox 97.6 F 138 20 109/82 97 08/09/19 13:14 08/09/19 13:14 08/09/19 13:14 08/09/19 13:14 08/09/19 13:14 - General physical appearance Present: well developed, well nourished - Abdomen Present: soft - Integumentary Present: no rash - Labs 08/11/19 05:46 08/11/19 05:46 Diabetes panel 08/10/19 08/11/19 Range/Units 07:50 05:46 Sodium 137 143 (136-145) mEq/L Potassium 3.5 3.4 L (3.5-5.1) mEq/L Chloride 101 107 (98-107) mEq/L Carbon Dioxide 28 30 H (23-29) mEq/L BUN 13 19 (8-23) mg/dL Creatinine 0.66 0.66 (0.60-1.20) mg/dL Glucose 126 H 149 H (70-105) mg/dL Calcium 9.2 9.2 (8.6-10.3) mg/dL Calcium panel 08/10/19 08/11/19 Range/Units 07:50 05:46 Calcium 9.2 9.2 (8.6-10.3) mg/dL Pituitary panel 08/10/19 08/11/19 Range/Units 07:50 05:46 Sodium 137 143 (136-145) mEq/L Potassium 3.5 3.4 L (3.5-5.1) mEq/L Chloride 101 107 (98-107) mEq/L Carbon Dioxide 28 30 H (23-29) mEq/L BUN 13 19 (8-23) mg/dL Creatinine 0.66 0.66 (0.60-1.20) mg/dL Glucose 126 H 149 H (70-105) mg/dL Calcium 9.2 9.2 (8.6-10.3) mg/dL Adrenal panel 08/10/19 08/11/19 Range/Units 07:50 05:46 Sodium 137 143 (136-145) mEq/L Potassium 3.5 3.4 L (3.5-5.1) mEq/L Chloride 101 107 (98-107) mEq/L Carbon Dioxide 28 30 H (23-29) mEq/L BUN 13 19 (8-23) mg/dL Creatinine 0.66 0.66 (0.60-1.20) mg/dL Glucose 126 H 149 H (70-105) mg/dL Calcium 9.2 9.2 (8.6-10.3) mg/dL Consult Discharge Plan - Plan Referrals: Maddie Morton [Primary Care Provider] -
[2019-08-11] MEDS: Metoprolol XL (24 HR) Succ 50 MG TAB.ER.24H PO SCH ×2 (09:21→20:36)
[2019-08-11] MEDS: Furosemide 40 MG/4 ML VIAL IVP SCH (09:21)
[2019-08-11] MEDS: Ranolazine 500 MG TAB.ER.12H PO SCH ×2 (09:22→20:35)
[2019-08-11] MEDS: Piperacillin/Tazobactam 3.375 GM in 0.9 % Sodium Chloride Mini Bag 100 ML IVPB SCH (09:22)
[2019-08-11] MEDS: clonazePAM 1 MG TABLET PO PRN ×3 (09:22→22:23)
[2019-08-11] MEDS: Gabapentin 300 MG CAPSULE PO SCH ×3 (09:22→20:36)
[2019-08-11] MEDS: Magnesium Oxide 400 MG TABLET PO SCH (09:22)
[2019-08-11] MEDS: Aspirin 81 MG TAB.CHEW PO SCH (09:23)
--- NOTE | 2019-08-11 10:18 | Internal Med Progress Note ---
Hospitalist Progress Note - Encounter Date of Encounter: 08/11/19 Time of Encounter: 10:40 - Subjective Interval History: No major events overnight. Patient was seen this a.m. He denied fever, chills or night sweats. sHe has no nausea, vomiting or abdominal pain. Her shortness of breath is improving and she feels much better. - Exam Vitals: Temp Pulse Resp BP Pulse Ox 97.9 F 104 15 112/81 93 08/11/19 07:08/11/19 07:08/11/19 07:08/11/19 07:08/11/19 07:26 Exam: General: Ill-appearing and in no acute distress. Appears chronically ill. Cachectic HEENT: No erythema of posterior pharynx. No exudates. Lymphatics: No mandibular or cervical lymphadenopathy Cardiovascular: Normal rate and irregular rhythm. No murmurs. Lungs: Decreased lung sounds at the bases. Bibasilar crackles Abdomen: Non-tender. No rebound or gaurding. Nl bowel sounds. Extremities: No edema. 2+ pulses radial and pedal pulses Skin: No rahses, abrasions, or contusions. Nl cap refill. Psych: Nl attention. A&Ox3 Neuro: clinical asst II-XII intact. 5/5 strength. Sensation to light touch and pinprick intact. - Assessment and Plan (1) CAD (coronary artery disease) Current Visit: Yes Status: Acute (2) Acute and chronic respiratory failure with hypoxia Current Visit: Yes Status: Resolved (3) Colitis Current Visit: Yes Status: Resolved (4) Concern about cancer without diagnosis Current Visit: Yes Status: Acute (5) Ascending aorta dilation Current Visit: Yes Status: Acute (6) Hematuria Current Visit: Yes Status: Acute (7) Iliac artery dissection Current Visit: Yes Status: Acute (8) Atrial fibrillation with RVR Current Visit: Yes Status: Acute (9) DVT prophylaxis Current Visit: Yes Status: Acute (10) CHF exacerbation Current Visit: No Status: Acute - Summary of Assessment and Plan Summary of Assessment and Plan: 68-year-old female with history of A. fib, HFrEF, PE, HTN,PAD, diabetes who was admitted to the hospital due to GROSS hematuria. Gross hematuria: For 2 weeks, was supposed to follow with urology as outpatient for cytoscopy but didn't. Pending UCx. [place] on Hold. Urology is following. High risk for malignancy given her prolonged smoking hx. Atrial fibrillation: On diltiazem drip, cardiology is consulted. Continue home dose metoprolol (she wasn't able to refill her increased dose from last discharge). Wean off Cardizem drip as tolerated. HOLD AC for tomorrow bronchos copy. Colitis: Found on CT scan in the ascending colon and hepatic flexure which could represent ischemia, infection or inflammatory, DC Zosyn as I believe it is more ischemic in nature from her Tachycardia likely. GI panel is pending. patient denied any abdominal pain Decompensated HFrEF: likely from HER RVR. Continue IV Lasix, total I&O -800ML . Limited ECHO with EF 35-40%. Troponin elevation: Peak to 0.04, likely type II event due to tachycardia. CAD status post PCI 07/05/19: Continue Plavix, asa, BB and Lipitor. Patient is asymptomatic Questionable malignancy: Right upper lobe enlarging nodules concerning for malignancy with interval progression of mediastinal and bilateral hilar l ymphadenopathy likely regression of metastatic disease, she smokes 23 packs of cigarettes for 50 years. Pulmonary is consulted, tomorrow for bronchoscopy and possible Bx. prognosis is guarding. Will consult PALLIATIVE team. Abdominal AAA: Measures 3.3 cm, follow-up is recommended in 3 years, vascular surgery is consulted. 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 Ascending aorta dilation: Consult placed for vascular surgery. Tobacco abuse: long discussion and counseling to quit smoking. Patient is at high risk of complications and her prognosis is guarding. I believe that goals of cares discussion is important at this point given all her comorbidities and above findings. We will continue to follow. I reviewed independently all laboratory workup, pertinent images including x- rays and CT scans. I also reviewed independently and EKGs and my findings are in the body of my assessment and plan. I ordered the laboratory workup and images myself. I discussed finding with patient's, their families, RN's and consultants involved in the care of the patient. - Time Spent with Patient Total time spent is greater than 50% in coordination of care (as documented) at patient's floor/unit and/or counseling patient: Plan of Care Discussed with: patient Internal Medicine: Result - Labs CBC & Chem 7: 08/11/19 05:46 08/11/19 05:46 Labs: Short CBC 08/11/19 Range/Units 05:46 WBC 6.8 (4.3-11.1) K/mcL Hgb 9.9 L (11.5-15.4) g/dL Hct 31.6 L (35.3-44.9) % Plt Count 216 (140-400) K/mcL BMP 08/11/19 05:46 Sodium 143 Potassium 3.4 L Chloride 107 Carbon Dioxide 30 H BUN 19 Creatinine 0.66 Glucose 149 H Calcium 9.2 - ABG Interpretation ABG results: PT/INR, D-dimer PT 21.3 Seconds (9.4-12.1) H 08/09/19 13:50 Consult Discharge Plan - Plan Referrals: Maddie Morton [Primary Care Provider] - (1) CAD (coronary artery disease) Qualifiers: Coronary Disease-Associated Artery/Lesion type: [place] artery [place] vs. transplanted heart: [place] heart Associated angina: with stable angina Qualified Code(s): I25.118 - Atherosclerotic heart disease of [place] coronary artery with other forms of angina pectoris (6) Hematuria Qualifiers: Hematuria type: gross Qualified Code(s): R31.0 - Gross hematuria (10) CHF exacerbation Qualifiers: Heart failure type: systolic Qualified Code(s): I50.23 - Acute on chronic systolic (congestive) heart failure
--- NOTE | 2019-08-11 11:23 | Cardiology Progress Note ---
Date of Encounter: 08/11/19 Time of Encounter: 09:30 Assessment and Plan (1) Atrial fibrillation with RVR Current Visit: Yes Status: Acute Patient presented with atrial fibrillation with RVR in the setting of CHF exacerbation. On cardizem gtt at 10 mg/hr--recommend weaning off cardizem as CCB not ideal d/t hx of HFrEF. On Eliquis at home--has been held since admission d/t hematuria. (CHA2Ds Vasc=4) Recommend resuming Eliquis when able. Pulmonary also consulted d/t enlarging spiculated lesions and possible biopsy. No dx of malignancy. 12hr tele reviewed: average HR 102. Currently rate controlled in the 90s. Recommend continuing BB (Toprol XL 50mg BID) and can titrate as needed for HR < 100. Pt has scheduled follow-up with Dr. Avery on 08/28/19. Cardiology will sign off at this time, please re-consult as needed. Discussion w patient/family: The assessment and plan as outlined above was discussed with the patient and/or family members who expressed understanding and agreement. All questions were answered. Thank you for involving us in the care of your patient. Please call with any questions. Subjective Principal diagnosis: Afib RVR Interval history: No complaints this morning. Objective Vital Signs, Last 4 Hours Temp Pulse Resp BP Pulse Ox 08/11/19 07:26 97.9 F 104 15 112/81 93 General: Conversant, No Apparent Distress HEENT: Atraumatic, Normocephaly, Mucus Membranes Moist Cardiac: Other (irregularly irregular) Lungs: Normal Breath Sounds Neuro: Alert and responsive, No focal deficits noted Musculoskeletal: No Chest Wall Tenderness Extremities: No Clubbing, No Cyanosis, No Edema, Normal Pulses Results 08/11/19 05:46 08/11/19 05:46 Lab Results 08/11/19 08/11/19 08/11/19 05:46 05:46 05:46 WBC 6.8 Hgb 9.9 L Hct 31.6 L Plt Count 216 Sodium 143 Potassium 3.4 L Chloride 107 Carbon Dioxide 30 H BUN 19 Creatinine 0.66 Glucose 149 H Calcium 9.2 B-Natriuretic Peptide 2521 H - Imaging and Cardiology Other Results: 12hr tele reviewed: Average HR 102, Afib, no events noted. Consult Discharge Plan - Plan Referrals: Maddie Morton [Primary Care Provider] -
--- NOTE | 2019-08-11 14:47 | Pulmonology Progress Note ---
Date of Encounter: 08/11/19 Time of Encounter: 11:00 Assessment and Plan (1) Acute respiratory failure with hypoxia Current Visit: Yes Status: Acute Mainly secondary to acute on chronic systolic heart failure to continue diuresis according to primary team atrial fibrillation with RVR with rate control (2) Acute exacerbation of CHF (congestive heart failure) Current Visit: Yes Status: Acute To continue fluid restriction and the diuresis. Qualifiers: Heart failure type: systolic Qualified Code(s): I50.23 - Acute on chronic systolic (congestive) heart failure (3) Lung nodule Current Visit: Yes Status: Acute Patient has a spiculated lung nodule with mediastinal lymphadenopathy concerning for metastatic primary lung malignancy endobronchial ultrasound was scheduled for tomorrow with . NPO after Midnight patient signed the consent (4) Mediastinal lymphadenopathy Current Visit: Yes Status: Acute Patient has some extensive mediastinal lymphadenopathy most likely metastatic Primary lung malignancy. Endobronchial ultrasound with transbronchial needle aspiration was schedule for tomorrow risk and benefit when offered to patient patient agreed for the procedure. (5) COPD (chronic obstructive pulmonary disease) Current Visit: No Status: Chronic Continue bronchodilators and steroids. Qualifiers: COPD type: emphysema Emphysema type: unspecified Qualified Code(s): J43.9 - Emphysema, unspecified (6) Pneumonia Current Visit: Yes Status: Acute To continue with broad-spectrum antibiotics. Qualifiers: Pneumonia type: due to unspecified organism Laterality: bilateral Lung location: unspecified part of lung Qualified Code(s): J18.9 - Pneumonia, unspecified organism Subjective Principal diagnosis: Afib RVR Interval history: Patient presenting with acute exacerbation of systolic heart failure with a CTA showed spiculated lesion with mediastinal lymphadenopathy concerning for primary metastatic lung malignancy pulmonary was consulted for evaluation of this. Patient has some cough and some sputum production shortness of breath is slowly getting better patient denies any chest pain chest tightness denies any palpitations syncope. Objective PUL Vital signs: Last Vital Signs Temp 97.7 F 08/11/19 12:09 Pulse 107 08/11/19 12:09 Resp 18 08/11/19 12:09 BP 117/79 08/11/19 12:09 Pulse Ox 95 08/11/19 12:09 General appearance: no acute distress Eyes: nonicteric Effort: mildly labored Auscultation: bilateral: rales Cardiovascular: irregular rhythm Gastrointestinal: normoactive bowel sounds Extremities: no edema Musculoskeletal: no deformities normal mental status, non-focal exam mood appropriate Results - Laboratory Findings CBC and BMP: 08/11/19 05:46 08/11/19 05:46 PT/INR, D-dimer PT 21.3 Seconds (9.4-12.1) H 08/09/19 13:50 Abnormal lab findings: Abnormal lab results RBC 3.42 M/mcL (3.82-4.97) L 08/11/19 05:46 Hgb 9.9 g/dL (11.5-15.4) L 08/11/19 05:46 Hct 31.6 % (35.3-44.9) L 08/11/19 05:46 MCHC 31.3 g/dL (31.6-35.5) L 08/11/19 05:46 RDW 18.8 % (11.5-14.5) H 08/11/19 05:46 PT 21.3 Seconds (9.4-12.1) H 08/09/19 13:50 Potassium 3.4 mEq/L (3.5-5.1) L 08/11/19 05:46 Carbon Dioxide 30 mEq/L (23-29) H 08/11/19 05:46 BUN/Creatinine Ratio 29 (6-26) H 08/11/19 05:46 Glucose 149 mg/dL (70-105) H 08/11/19 05:46 POC Glucose 181 mg/dL (70-99) H 08/10/19 19:36 Calculated Osmolality 301 (280-300) H 08/11/19 05:46 Direct Bilirubin 0.3 mg/dL (0.0-0.2) H 08/09/19 13:50 Troponin I 0.04 ng/mL (< 0.04) H* 08/09/19 20:14 B-Natriuretic Peptide 2521 pg/mL (Less than 100) H 08/11/19 05:46 Lipase 8 Units/L (11-82) L 08/09/19 13:50 Ur Specimen Adequacy See below A 08/09/19 14:30 Urine Color Red (Yellow) A 08/09/19 14:30 Urine Clarity Cloudy (Clear) A 08/09/19 14:30 - Microbiology Findings Microbiology Findings: Microbiology, Last 48 Hours 08/10/19 12:25 Urine Culture - Final Urine,Clean Catch No growth. - Clinical Findings Intake & Output: Intake & Output 08/10/19 08/11/19 08/11/19 23:59 07:59 15:59 Intake Total 110 / 754 100 / 1030 930 / 1030 Output Total 200 / 200 Balance 110 / -346 100 / 830 730 / 830 Weight 50.6 kg Consult Discharge Plan - Plan Referrals: Maddie Morton [Primary Care Provider] -
[2019-08-11] MEDS: predniSONE 20 MG TABLET PO SCH (15:23)
[2019-08-11] MEDS: Albuterol 2.5 MG/3 ML NEBULIZER IH PRN (16:10)
[2019-08-11] MEDS: Levalbuterol Neb 1.25 MG/3 ML IH SCH (21:54)
[2019-08-12 03:21] LABS: Hematocrit 34.1 % (35.3-44.9); Hemoglobin 10.6 g/dL (11.5-15.4); Mean Corpuscular HGB Conc 31.1 g/dL (31.6-35.5); Mean Corpuscular Volume 93.4 fL (83.0-100.0); Platelet Count 274 K/mcL (140-400); Red Blood Count 3.65 M/mcL (3.82-4.97); Red Cell Distribution Width 18.4 % (11.5-14.5); White Blood Count 7.2 K/mcL (4.3-11.1)
[2019-08-12 03:30] LABS: INR 1.4; Prothrombin Time 15.8 Seconds (9.4-12.1)
[2019-08-12 03:48] LABS: BUN/Creatinine Ratio 29 (6-26); Blood Urea Nitrogen 21 mg/dL (8-23); Calcium 9.2 mg/dL (8.6-10.3); Carbon Dioxide 29 mEq/L (23-29); Chloride 102 mEq/L (98-107); Glucose 181 mg/dL (70-105); Osmolality,Calculated 294 (280-300); Potassium 3.9 mEq/L (3.5-5.1); Sodium 138 mEq/L (136-145); eGFR For African Americans > 60 (> 60); eGFR For Non-African Americans > 60 (> 60)
[2019-08-12] MEDS: Levalbuterol Neb 1.25 MG/3 ML IH SCH ×4 (04:16→22:13)
--- NOTE | 2019-08-12 07:13 | Oncology Inp Consult Note ---
Date of Encounter: 08/12/19 Time of Encounter: 07:00 Assessment and Plan (1) Lung nodule Status: Acute Assessment and plan: Ms. Costa has 2 spiculated right upper lobe lung nodules concerning for primary pulmonary malignancy. These have enlarged over time. In addition she developed bilateral hilar and mediastinal adenopathy. Adenopathy could be related to a primary lung carcinoma but also lymphoma is on the differential as well as reactive lymphadenopathy. Agree with bronchoscopy and EBUS today for evaluation. Therapeutically, options may be limited given her performance status which is poor. I would operator lights her ECOG performance status at 3 at current. Patient does want to pursue aggressive management if malignancy is identified. She will likely require inpatient rehabilitation as well which will also impact treatment decision making. This will be an ongoing discussion. Further recommendations/discussion pending biopsy results. (2) Anemia, chronic disease Status: Acute Assessment and plan: Indices c/w anemia of chronic disease previously. Will repeat iron studies tomorrow. - Data of Consult Requesting Physician: Mj Villegas Primary Care Provider: Maddie Morton - Consult Narrative Reason for consult: Enlarging mediastinal lymphadenopathy History of present illness: Ms. Costa is a chronically ill 68-year-old woman who was recently hospitalized in June for congestive heart failure exacerbation. Left heart catheterization shows severe 2 vessel coronary disease status post PTCA. Patient has chronic atrial fibrillation for which she is on Eliquis as well. In addition, patient has known right upper lobe lung nodules that were found in February 2019. Since her hospitalization, she has not done well. She has had 2 falls causing extensive bruising about her bilateral lower extremities. She is very frail and weak. She requires assistance getting up to the bathroom. Per her sisters, they believe she lost 80 pounds over the past year. Patient has had chronic night sweats but these have not worsened over the past 2 weeks where she has to change pajamas. No fever or chills. Outside of some pain from her recent fall, no other new aches or pains. She has chronic diarrhea. Currently she describes her diarrhea as watery brown stool. No melena or hematochezia. Most recently, patient has developed hematuria prompting her current hospitalization. She is on aspirin, Plavix as well as Eliquis. Her hematuria started after one of her falls. She denies passing any clots or severe dysuria. Urinalysis revealed red urine. Culture with no growth to date. Urology has been following. CT imaging which is reviewed below I personally reviewed, revealed increase in size right upper lobe nodules. In addition, there is extensive emphysema identified. There is increase in mediastinal lymphadenopathy as well as bilateral hilar lymph nodes. Acute colitis involving the ascending colon and hepatic flexure present. Multiple other vascular abnormalities identified. Pulmonary has been consult is planning for bronchoscopy/EBUS with biopsy today to further evaluate adenopathy. Past Med Surg Social Fam HX - Past Medical History Medical history: arthritis, atrial fibrillation, COPD, coronary artery disease, DVT, hyperlipidemia, hypertension, migraine, myocardial infarction, peripheral artery disease Additional medical history: [place] with angioplasty, cardiac stents. PE Psychiatric history: anxiety, depression - Past Surgical History Surgical History: angioplasty/stent, cholecystectomy, hysterectomy Additional surgical history: right knee replacement. 4 cardiac stents. 1 renal stent - Social History Smoking Status: Current every day smoker Smokeless Tobacco Status: No Alcohol use: none Drug use: none - Family History Mother Adopted: No Living Status: Hx Family Cardiac Disorders: Yes Hx Family Respiratory Disorders: Yes Hx Family Cancer: No Hx Family GI Disorders: No Hx Family Endocrine Disorder: Yes Hx Family Neuromuscular Disorders: No Hx Family Neurologic Disorders: No Hx Family HEENT Disorders: No Hx Family Autoimmune Disorders: No Father Adopted: No Living Status: Hx Family Cardiac Disorders: Yes Hx Family Respiratory Disorders: No Hx Family Cancer: Yes (Prostate) Hx Family GI Disorders: No Hx Family Endocrine Disorder: Yes (DM) Hx Family Neuromuscular Disorders: No Hx Family Neurologic Disorders: No Hx Family HEENT Disorders: No Hx Family Autoimmune Disorders: No Medications and Allergies Albuterol Neb [Proventil Neb] 2.5 mg IH Q4HR PRN #100 vial.neb 02/15/18 [Rx] Aspirin 81 mg PO DAILY #30 tab.chew 02/15/18 [Rx] Atorvastatin Calcium [Lipitor] 80 mg PO HS #30 tablet 02/15/18 [Rx] Metformin HCl [Glucophage] 1,000 mg PO BID #60 tablet 02/15/18 [Rx] Ranolazine [Ranexa] 500 mg PO BID 30 Days #60 tab.er.12h 02/15/18 [Rx] Magnesium Oxide [Mag-Oxide Magnesium] 400 mg PO DAILY 02/27/19 [History] Tizanidine HCl 2 mg PO TID PRN 02/27/19 [History] Venlafaxine [Effexor] 75 mg PO BID 02/27/19 [History] Apixaban [Eliquis] 5 mg PO BID #60 tablet 03/04/19 [Rx] Albuterol Sulfate [Ventolin Hfa] 1 puff IH Q6H PRN 06/13/19 [History] Ergocalciferol (VITAMIN D2) [Vitamin D2] 50,000 unit PO TU 06/13/19 [History] Montelukast [Singulair] 10 mg PO DAILY 06/13/19 [History] Gabapentin [Neurontin] 300 mg PO TID #90 capsule 06/23/19 [Rx] clonazePAM [Klonopin] 0.5 mg PO TID PRN 4 Days #12 tablet 06/23/19 [Rx] Dicyclomine Hcl [Bentyl] 20 mg PO BID 07/02/19 [History] Omeprazole [PriLOSEC] 40 mg PO DAILY 07/02/19 [History] Ondansetron HCl 4 mg PO BID PRN 07/02/19 [History] Potassium Chloride [K-Tab ER] 10 meq PO DAILY 07/02/19 [History] Clopidogrel [Plavix] 75 mg PO DAILY #30 tablet 07/06/19 [Rx] Losartan [Cozaar] 12.5 mg PO DAILY #15 tablet 07/06/19 [Rx] Metoprolol XL (24 HR) Succ [Toprol XL] 50 mg PO BID #60 tab 07/06/19 [Rx] Furosemide [Lasix] 20 mg PO HS 08/09/19 [History] Furosemide [Lasix] 40 mg PO QAM 08/09/19 [History] Allergy/AdvReac Type Severity Reaction Status Date / Time No Known Allergies Allergy Verified 07/02/19 16:44 All systems: reviewed and no additional remarkable complaints except as stated Constitutional: Present: fatigue, frequent falls, night sweats, weight loss Eyes: Present: as per HPI Ears: Present: as per HPI Nose, mouth and throat: Present: disequilibrium Cardiovascular: Present: irregular heart rhythm Respiratory: Present: dyspnea on exertion Gastrointestinal: Present: diarrhea Genitourinary: Present: as per HPI Musculoskeletal: Present: stiffness Integumentary: Present: as per HPI Neurological: Present: as per HPI Oncology - Exam - Constitutional General appearance: disheveled, no acute distress, thin - Head Head exam: Present: atraumatic, normal inspection, normocephalic - Eye Eye exam: Present: normal appearance, conjuntiva pink, sclera anicteric - ENT ENT exam: Present: mucous membranes moist, normal exam, normal oropharynx - Neck Neck exam: Present: full ROM, normal inspection - Respiratory Respiratory exam: Present: decreased breath sounds - Cardiovascular Cardiovascular exam: Present: RRR - GI/Abdominal GI/Abdominal exam: Present: normal bowel sounds, soft - Extremities Exam Extremities exam: Present: normal inspection - Expanded Lower Extremity Exam Upper Leg exam: Present: ecchymosis Lower Leg exam: Present: ecchymosis - Neurological Exam Neurological exam: Present: alert, CN II-XII intact, no focal deficits Oncology Inpatient Results Labs: Laboratory Results - last 24 hr 08/10/19 08/11/19 08/11/19 19:36 05:46 05:46 WBC 6.8 RBC 3.42 L Hgb 9.9 L Hct 31.6 L MCV 92.4 MCH 28.9 MCHC 31.3 L RDW 18.8 H Plt Count 216 MPV 9.7 PT INR Sodium 143 Potassium 3.4 L Chloride 107 Carbon Dioxide 30 H BUN 19 Creatinine 0.66 Est GFR ( Amer) > 60 Est GFR (Non-Af Amer) > 60 BUN/Creatinine Ratio 29 H Glucose 149 H POC Glucose 181 H Calculated Osmolality 301 H Calcium 9.2 B-Natriuretic Peptide Procalcitonin 08/11/19 08/11/19 08/11/19 05:46 05:46 07:24 WBC RBC Hgb Hct MCV MCH MCHC RDW Plt Count MPV PT INR Sodium Potassium Chloride Carbon Dioxide BUN Creatinine Est GFR ( Amer) Est GFR (Non-Af Amer) BUN/Creatinine Ratio Glucose POC Glucose 153 H Calculated Osmolality Calcium B-Natriuretic Peptide 2521 H Procalcitonin < 0.02 08/11/19 08/11/19 08/11/19 12:06 16:01 20:10 WBC RBC Hgb Hct MCV MCH MCHC RDW Plt Count MPV PT INR Sodium Potassium Chloride Carbon Dioxide BUN Creatinine Est GFR ( Amer) Est GFR (Non-Af Amer) BUN/Creatinine Ratio Glucose POC Glucose 121 H 103 H 380 H Calculated Osmolality Calcium B-Natriuretic Peptide Procalcitonin 08/12/19 08/12/19 08/12/19 00:16 03:00 03:00 WBC 7.2 RBC 3.65 L Hgb 10.6 L Hct 34.1 L MCV 93.4 MCH 29.0 MCHC 31.1 L RDW 18.4 H Plt Count 274 MPV 10.0 PT INR Sodium 138 Potassium 3.9 Chloride 102 Carbon Dioxide 29 BUN 21 Creatinine 0.72 Est GFR ( Amer) > 60 Est GFR (Non-Af Amer) > 60 BUN/Creatinine Ratio 29 H Glucose 181 H POC Glucose 309 H Calculated Osmolality 294 Calcium 9.2 B-Natriuretic Peptide Procalcitonin 08/12/19 03:00 WBC RBC Hgb Hct MCV MCH MCHC RDW Plt Count MPV PT 15.8 H INR 1.4 Sodium Potassium Chloride Carbon Dioxide BUN Creatinine Est GFR ( Amer) Est GFR (Non-Af Amer) BUN/Creatinine Ratio Glucose POC Glucose Calculated Osmolality Calcium B-Natriuretic Peptide Procalcitonin 4817-2320 CT/CT abd pelvis w iv no oral IMPRESSION: 1. CT PA: No pulmonary embolism. 2. Main pulmonary artery dilatation can be seen with pulmonary hypertension. 3. Pulmonary findings of congestive heart failure. 4. Dilatation of the ascending thoracic aorta. Vascular consultation recommended on nonemergent basis. 5. Enlarging spiculated nodules posterior right upper lobe concerning for malignancy. 6. Interval progression of mediastinal and bilateral hilar adenopathy presumably reflecting progression of metastatic disease. 7. Emphysema. 8. Cardiomegaly. 9. CT ABDOMEN/PELVIS: Acute colitis ascending colon and hepatic flexure may be on an ischemic, infectious or inflammatory basis. The superior mesenteric artery and celiac axis appear patent. 10. Enlarging AAA, now 3.3 cm. Recommend follow-up every 3 years. {Reference: J Am Timothy Radiol 2013;10:789-794.} 11. 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 12. Status post left to right fem-fem bypass with the bypass graft appearing occluded and proximal visualized portion of the right femoral artery appearing occluded. 13. Mild intra and extrahepatic bile duct dilatation status post cholecystectomy typical of reservoir effect. Consult Discharge Plan - Plan Referrals: Maddie Morton [Primary Care Provider] - Inpatient Charges Provider: Dr. Sonny Watson Consult - Inpatient Medicare Only: [id number]
[2019-08-12] MEDS ORDERED: *HR* Propofol 200 MG/20 ML VIAL IVP ONE (07:24)
[2019-08-12] MEDS ORDERED: Lidocaine -MPF 4% 5 ML AMPUL ONE (07:24)
[2019-08-12] MEDS ORDERED: *HR* FentaNYL (PF) 100 MCG/2 ML VIAL ONE (07:24)
[2019-08-12] MEDS ORDERED: *HR* Succinylcholine 200 MG/10 ML VIAL IVP ONE (07:24)
[2019-08-12] MEDS ORDERED: Dexamethasone 4 MG/ML VIAL ONE (07:24)
[2019-08-12] MEDS ORDERED: Ondansetron 4 MG/2 ML VIAL ONE (07:24)
[2019-08-12] MEDS ORDERED: Lidocaine -MPF 2% 2 ML VIAL ONE (07:24)
[2019-08-12] MEDS ORDERED: *HR* PHENYLEPHRINE 1,000 MCG/10 ML SYRINGE IVP ONE (07:26)
[2019-08-12] MEDS: Aspirin 81 MG TAB.CHEW PO SCH (07:27)
[2019-08-12] MEDS: predniSONE 20 MG TABLET PO SCH ×2 (07:29→15:13)
[2019-08-12] MEDS: Magnesium Oxide 400 MG TABLET PO SCH (07:29)
[2019-08-12] MEDS: Metoprolol XL (24 HR) Succ 50 MG TAB.ER.24H PO SCH ×2 (07:42→21:44)
[2019-08-12] MEDS: Furosemide 40 MG/4 ML VIAL IVP SCH (07:43)
[2019-08-12] MEDS: Gabapentin 300 MG CAPSULE PO SCH ×3 (07:43→21:43)
[2019-08-12] MEDS: Ranolazine 500 MG TAB.ER.12H PO SCH ×2 (07:43→21:42)
[2019-08-12] MEDS ORDERED: EPHEDrine 50 MG/ML VIAL ONE (08:28)
[2019-08-12] MEDS ORDERED: Ringers Solution, Lactated 1,000 ML IVC SCH (09:00)
--- NOTE | 2019-08-12 09:02 | Anesthesia Evaluation PreOp ---
Date of Encounter: 08/12/19 Time of Encounter: 08:59 - Past History Planned Operation: EBUS Cardiac History: [place], CHF (35%), HTN, Hyperlipidemia, Cardiac Stent (NSTEMI 8 4 stents total), Other (PTCA 07/05/2019, PVD) Pulmonary History: Smoker, COPD (2-3 L oxygen qhs), Other (pulmonary nodules) MILIEU MANAGER History: Denies Any Significant HX Other Medical History: Diabetes Type II Anesthesia History: No Prior Anesthetic Complications, Past Anesthesia : No Alcohol Use: none Drug use: none Medications and Allergies Albuterol Neb [Proventil Neb] 2.5 mg IH Q4HR PRN #100 vial.neb 02/15/18 [Rx] Aspirin 81 mg PO DAILY #30 tab.chew 02/15/18 [Rx] Atorvastatin Calcium [Lipitor] 80 mg PO HS #30 tablet 02/15/18 [Rx] Metformin HCl [Glucophage] 1,000 mg PO BID #60 tablet 02/15/18 [Rx] Ranolazine [Ranexa] 500 mg PO BID 30 Days #60 tab.er.12h 02/15/18 [Rx] Magnesium Oxide [Mag-Oxide Magnesium] 400 mg PO DAILY 02/27/19 [History] Tizanidine HCl 2 mg PO TID PRN 02/27/19 [History] Venlafaxine [Effexor] 75 mg PO BID 02/27/19 [History] Apixaban [Eliquis] 5 mg PO BID #60 tablet 03/04/19 [Rx] Albuterol Sulfate [Ventolin Hfa] 1 puff IH Q6H PRN 06/13/19 [History] Ergocalciferol (VITAMIN D2) [Vitamin D2] 50,000 unit PO TU 06/13/19 [History] Montelukast [Singulair] 10 mg PO DAILY 06/13/19 [History] Gabapentin [Neurontin] 300 mg PO TID #90 capsule 06/23/19 [Rx] clonazePAM [Klonopin] 0.5 mg PO TID PRN 4 Days #12 tablet 06/23/19 [Rx] Dicyclomine Hcl [Bentyl] 20 mg PO BID 07/02/19 [History] Omeprazole [PriLOSEC] 40 mg PO DAILY 07/02/19 [History] Ondansetron HCl 4 mg PO BID PRN 07/02/19 [History] Potassium Chloride [K-Tab ER] 10 meq PO DAILY 07/02/19 [History] Clopidogrel [Plavix] 75 mg PO DAILY #30 tablet 07/06/19 [Rx] Losartan [Cozaar] 12.5 mg PO DAILY #15 tablet 07/06/19 [Rx] Metoprolol XL (24 HR) Succ [Toprol XL] 50 mg PO BID #60 tab 07/06/19 [Rx] Furosemide [Lasix] 20 mg PO HS 08/09/19 [History] Furosemide [Lasix] 40 mg PO QAM 08/09/19 [History] Allergy/AdvReac Type Severity Reaction Status Date / Time No Known Allergies Allergy Verified 07/02/19 16:44 - Meds/Allergy Pre-op Review Medications Reviewed: Yes Allergies Reviewed: Yes Beta Blockers on Current Med List: Yes Anesthesia Results - Labs 08/12/19 03:00 08/12/19 03:00 - Imaging EKG: report reviewed Additional studies: 07/05/2019 LEFT HEART CATH PTCA Single Major Vessel PTCA each add'l branch Indications: Cardiomyopathy Cardiomyopathy Impressions: There is severe two vessel coronary artery disease. Patient had successful PTCA in the distal Circ. and OM Recommendations: Optimal medical therapy of patient's disease. Aggressive risk factor modification. Coronary Dominance: right Lesion Findings/Interventions * Left Main Coronary Artery The LMCA is angiographically free of disease. * Left Anterior Descending There is a 25% in stent restenosis in the Proximal LAD. There is a 25% in stent restenosis in the Mid LAD. * Circumflex There is a 12 mm long, 90% in stent restenosis in the Distal Circumflex. The lesion has a NEERU flow of 3 and has no thrombus present. An intervention was performed on the Distal Circumflex with a final stenosis of 25%. There were no lesion complications. The final NEERU flow was 3. There is a 12 mm long, 80% in stent restenosis in the 1st Marginal. The lesion has a NEERU flow of 3 and has no thrombus present. An intervention was performed on the 1st Marginal with a final stenosis of 25%. There were no lesion complications. The final NEERU flow was 3. * Right Coronary Artery There is a 100% stenosis in the Mid RCA. The lesion has collaterals which feed from left to right. Anesthesia Exam Vital Signs/O2 Sat/Glucose, Most Recent Temp Pulse Resp BP Pulse Ox 97.6 F 86 22 119/87 92 08/12/19 08:49 08/12/19 08:49 08/12/19 08:49 08/12/19 08:49 08/12/19 08:49 Blood Glucose* 156 Weight: 50 kg NPO (# of Hours): > 8 hr - HEENT Pupil (Motor): Pupils equal Mallampati: II Teeth: Poor dentition - MILIEU MANAGER LOC: Oriented - Cardiac Rhythm: Regular Murmur: None - Pulmonary Breath Sounds: bilateral Clear Respiratory Effort: Symmetrical Anesthesia Assess/Plan ASA Score: 4 Level of consciousness: Cooperative, Oriented Anesthetic Plan: General Monitoring Plan: Standard Monitors Recovery Plan: PACU
[2019-08-12] MEDS ORDERED: Albuterol 2.5 MG/3 ML NEBULIZER IH ONE (09:04)
[2019-08-12] MEDS ORDERED: *HR* Labetalol 20 MG/4 ML SYRINGE IVP PRN (09:04)
[2019-08-12] MEDS ORDERED: *HR* HYDROmorphone (PF) 1 MG/ML SYRINGE IVP PRN (09:04)
[2019-08-12] MEDS ORDERED: *HR* Promethazine 25 MG/ML VIAL IVP PRN (09:04)
[2019-08-12] MEDS ORDERED: Ondansetron 4 MG/2 ML VIAL IVP ONE (09:04)
--- NOTE | 2019-08-12 09:06 | Urology Progress Note ---
<Jazzy Dudley N - Last Filed: 08/12/19 09:22> Date of Encounter: 08/12/19 Time of Encounter: 08:30 - Assessment and Plan (1) Acute cystitis with hematuria Current Visit: Yes Status: Acute Assessment and plan: Patient is a 68-year-old female who presents with a history of acute cystitis with hematuria. Urine culture is negative. (2) Gross hematuria Current Visit: Yes Status: Acute Assessment and plan: Patient is a 68-year-old female who presents with the history of gross hematuria. Vital signs are stable and afebrile. Hemoglobin appears stabilized at 10.6. Patient is undergoing inpatient workup for possible metastatic lung cancer and is tentatively planning a transbronchial needle aspiration biopsy later today with Dr. Nunn. Patient's family member is requesting a bladder scan to ensure she is emptying her bladder sufficiently. I have ordered a bladder scan and communicated the order verbally to patient's nurse. Patient does not wish to proceed with a catheter at this time, as she feels as though she is emptying her bladder well without difficulty. I personally inspected her urine, and it is a transparent, tea color in bedside commode. Patient and her family members are aware of our concern for a bladder tumor, and she agrees to come in for an outpatient cystoscopy promptly upon discharge. It is of note, patient no showed for an outpatient cystoscopy with Dr. Arevalo on 07/22/2019. Progress Note Narrative: Patient seen and examined sitting upright in chair in no apparent distress. Patient's family members are at bedside. Patient reports feeling as though she is emptying her bladder well without difficulty. Patient continues with tea- colored urine. She denies any dysuria, fever, chills or flank pain. Objective Initial Vital Signs Temp Pulse Resp BP Pulse Ox 97.6 F 138 20 109/82 97 08/09/19 13:14 08/09/19 13:14 08/09/19 13:14 08/09/19 13:14 08/09/19 13:14 - General physical appearance Present: no distress, no pain - Respiratory Present: normal expansion, normal respiratory effort - Abdomen Present: soft, non tender. Absent: distended - Genitourinary Urine Appearance: Present: Hematuria (Transparent, tea color) - Integumentary Present: no rash, no abnormal pigmentation - Musculoskeletal Present: normal posture - Psychiatric Present: oriented to time, oriented to person, oriented to place, speech is normal, memory intact - Labs 08/12/19 03:00 08/12/19 03:00 Diabetes panel 08/12/19 Range/Units 03:00 Sodium 138 (136-145) mEq/L Potassium 3.9 (3.5-5.1) mEq/L Chloride 102 (98-107) mEq/L Carbon Dioxide 29 (23-29) mEq/L BUN 21 (8-23) mg/dL Creatinine 0.72 (0.60-1.20) mg/dL Glucose 181 H (70-105) mg/dL Calcium 9.2 (8.6-10.3) mg/dL Calcium panel 08/12/19 Range/Units 03:00 Calcium 9.2 (8.6-10.3) mg/dL Pituitary panel 08/12/19 Range/Units 03:00 Sodium 138 (136-145) mEq/L Potassium 3.9 (3.5-5.1) mEq/L Chloride 102 (98-107) mEq/L Carbon Dioxide 29 (23-29) mEq/L BUN 21 (8-23) mg/dL Creatinine 0.72 (0.60-1.20) mg/dL Glucose 181 H (70-105) mg/dL Calcium 9.2 (8.6-10.3) mg/dL Adrenal panel 08/12/19 Range/Units 03:00 Sodium 138 (136-145) mEq/L Potassium 3.9 (3.5-5.1) mEq/L Chloride 102 (98-107) mEq/L Carbon Dioxide 29 (23-29) mEq/L BUN 21 (8-23) mg/dL Creatinine 0.72 (0.60-1.20) mg/dL Glucose 181 H (70-105) mg/dL Calcium 9.2 (8.6-10.3) mg/dL Consult Discharge Plan - Plan Referrals: Maddie Morton [Primary Care Provider] - <Ra Hodges - Last Filed: 08/12/19 16:13> Date of Encounter: 08/12/19 - Assessment and Plan (1) Gross hematuria Current Visit: Yes Status: Acute (2) Acute cystitis with hematuria Current Visit: Yes Status: Acute Progress Note Narrative: She was seen and examined independently. I agree with the plan as written by Jazzy Dudley. At this time the patient continues to void okay. She underwent endobronchial ultrasound biopsy of lung mass. We will continue to follow patient while she is hospitalized. Patient will need outpatient cystoscopy. Objective Initial Vital Signs Temp Pulse Resp BP Pulse Ox 97.6 F 138 20 109/82 97 08/09/19 13:14 08/09/19 13:14 08/09/19 13:14 08/09/19 13:14 08/09/19 13:14 - Labs 08/12/19 03:00 08/12/19 03:00 Diabetes panel 08/12/19 Range/Units 03:00 Sodium 138 (136-145) mEq/L Potassium 3.9 (3.5-5.1) mEq/L Chloride 102 (98-107) mEq/L Carbon Dioxide 29 (23-29) mEq/L BUN 21 (8-23) mg/dL Creatinine 0.72 (0.60-1.20) mg/dL Glucose 181 H (70-105) mg/dL Calcium 9.2 (8.6-10.3) mg/dL Calcium panel 08/12/19 Range/Units 03:00 Calcium 9.2 (8.6-10.3) mg/dL Pituitary panel 08/12/19 Range/Units 03:00 Sodium 138 (136-145) mEq/L Potassium 3.9 (3.5-5.1) mEq/L Chloride 102 (98-107) mEq/L Carbon Dioxide 29 (23-29) mEq/L BUN 21 (8-23) mg/dL Creatinine 0.72 (0.60-1.20) mg/dL Glucose 181 H (70-105) mg/dL Calcium 9.2 (8.6-10.3) mg/dL Adrenal panel 08/12/19 Range/Units 03:00 Sodium 138 (136-145) mEq/L Potassium 3.9 (3.5-5.1) mEq/L Chloride 102 (98-107) mEq/L Carbon Dioxide 29 (23-29) mEq/L BUN 21 (8-23) mg/dL Creatinine 0.72 (0.60-1.20) mg/dL Glucose 181 H (70-105) mg/dL Calcium 9.2 (8.6-10.3) mg/dL
--- NOTE | 2019-08-12 09:30 | Palliative - Consult Note ---
Date of Encounter: 08/12/19 Time of Encounter: 14:46 - Assessment and Plan (1) Palliative care by specialist Current Visit: Yes Status: Acute Assessment and plan: Pt currently has capacity to make complex medical decisions. No advanced directives on file in chart. Pt has two adult children who are LNOK. Pt's sister Gayla is closely involved in patients care. Pt is interested in filling out HCPOA paperwork to name her sister Gayla as HCPOA. Palliative Care will follow-up tomorrow and assist pt with completing paperwork if she is willing. (2) Goals of care, counseling/discussion Current Visit: Yes Status: Acute Assessment and plan: - We discussed her clinical condition, prognosis and treatment options in the context of her values, preferences and goals. Pt demonstrates fair to poor prognostic awareness regarding her current clinical condition. She voices that if the biopsy returns positive, she would likely be willing to seek aggressive treatment options such as chemotherapy and/or radiation if offered. - We discussed her values and goals and explored disease focused vs comfort care focused care. Pt grateful for exploration of these options as she did not fully understand all of her options. She expressed she will continue to explore these options once her possible treatments options are fully determined. - We discussed that if she was unable to participate in complex medical decision-making, her two adult children would be LNOK . Pt voiced she would like to name her sister Gayla as her HCPOA. She would like to further discuss this with Gayla dao. Palliative Care will follow up in the morning and assist with filling out HCPOA paperwork if she is ready to complete. - Reviewed pt's current code status of Full Code. Explained differences in Full Code, DNRCC-Arrest, DNI and DNRCC. Pt expressed a clear understanding that she remains a Full Code at this time. She expressed gratitude for education on code status options and voiced she will continue to discuss these options with her sister Gayla. At this time, she wishes to remain a Full Code and seeks all aggressive life prolonging therapies. - Palliative will continue to follow up in the coming days to assist in e stablishing prognostic awareness, goals, and preferences in the setting of her current clinical condition. (3) Suspected malignant neoplasm Current Visit: Yes Status: Acute Assessment and plan: Right upper lobe enlarging nodules concerning for malignancy. Pulmonology and Oncology now following. S/p bronchoscopy with bx today. Pt seeking aggressive treatment options at this time. (4) Decompensated heart failure Current Visit: Yes Status: Chronic Assessment and plan: [place] worsened d/t AF RVR. EF 35-40% per last Echo. Cardiology consulted per primary team. Pt currently on Lasix. (5) Coronary artery disease Current Visit: Yes Status: Chronic Assessment and plan: s/p PCI 07/05/19. Continued management per primary team. Follows with OP Cardiology. Qualifiers: Coronary Disease-Associated Artery/Lesion type: unspecified vessel or lesion type [place] vs. transplanted heart: [place] heart Associated angina: angina presence unspecified Qualified Code(s): I25.10 - Atherosclerotic heart disease of [place] coronary artery without angina pectoris (6) Colitis Current Visit: No Status: Acute Assessment and plan: Found on CT scan this admission. Ischemia vs. infection or inflammatory. GI panel per primary team. (7) Atrial fibrillation Current Visit: No Status: Chronic Assessment and plan: Management per primary team, Cardiology consulted. Qualifiers: Atrial fibrillation type: unspecified Qualified Code(s): I48.91 - Unspecified atrial fibrillation (8) Hematuria Current Visit: No Status: Acute Assessment and plan: Pt was scheduled for OP cystoscopy, missed appointment. Urology now following. Qualifiers: Hematuria type: unspecified type Qualified Code(s): R31.9 - Hematuria, unspecified (9) Current every day smoker Current Visit: Yes Status: Chronic (10) Chronic back pain Current Visit: Yes Status: Chronic Assessment and plan: Pt reports chronic hx of lower back pain for many years. Reports she was previously on Percocet at home for many years but was recently weaned off per PCP. This is consistent with her OARRS report. She has tried Tylenol, Lidocaine patches and other alternative therapies in the past with little benefit. Recommend to continue to maximize non-opioid related treatments for chronic back pain such as: heat/ice, positioning, distraction. Pt currently on gabapentin at home. Qualifiers: Back pain location: low back pain Back pain laterality: midline Sciatica presence: unspecified whether sciatica present Qualified Code(s): M54.5 - Low back pain; G89.29 - Other chronic pain (11) Chronic pain of right lower extremity Current Visit: Yes Status: Acute Assessment and plan: Chronic per pt r/t prior vascular surgeries to right leg. (12) Chronic anxiety Current Visit: Yes Status: Acute Assessment and plan: Pt reports she has been on Klonopin for many years at home per PCP. Palliative-CN HPI - Data of Consult Consult date: 08/12/19 Requesting Physician: Mj Villegas Primary Care Provider: Maddie Morton - Consult Narrative Palliative Care/Comfort Measures: Palliative care Reason for consult: Goals of Care History of present illness: Ms. Costa is a 68 year old female with hx of AF, COPD, CHF, PE, HTN, PAD, Diabetes and current smoker who was admitted 08/09/19 for hematuria. She was found to have right upper lobe nodules concerning for malignancy. Pulmonary now following, pt to have bronchoscopy today with biopsy. Oncology now following, as well as Urology and Cardiology. Palliative Care is consulted to assist with goals of care discussion in the setting of multiple comorbidities and concern for malignancy. Pt is sitting up in bed, just finished ambulating in the hallway with PT, NAD. No family present initially during visit, sisters joined bedside during end of the visit. Pt is awake, alert and oriented during visit. Regarding her symptoms, pt reports chronic back pain as 10/10 in her lower back. Reports she has had chronic back pain for many years. She also reports chronic pain to her RLE, reports this is r/t her previous vascular surgeries. Pt expressed that she was previously on Percocet for her chronic pain but was recently weaned off by her PCP. She denies any additional locations of pain. Pt reports last BM was this morning, expresses she has had chronic loose stools for many years. She expressed she never went to a doctor for this as it has not been bothersome to her. She endorses chronic history of anxiety for which she takes Klonopin at home, reports her PCP recently decreased her Klonopin as well. She reports that she lives at home with her son. She endorses that she has a walker and a cane to assist her with ambulating, reports she frequently does not use these devices causing her to fall sometimes. We discussed the importance of her safety at home and the need for her to use the assistance she needs. She reports that she had been "doing really well" after her recent admission until approximately 2 weeks ago. She reports she became more short of breath, fatigued and her hematuria worsened causing her to come back to the hospital. She denies nausea or any additional symptoms at this time. Goals of Care discussion as below. - We discussed her clinical condition, prognosis and treatment options in the context of her values, preferences and goals. Pt demonstrates fair to poor prognostic awareness regarding her current clinical condition. She voices that if the biopsy returns positive, she would likely be willing to seek aggressive treatment options such as chemotherapy and/or radiation if offered. - We discussed her values and goals and explored disease focused vs comfort care focused care. Pt grateful for exploration of these options as she did not fully understand all of her options. She expressed she will continue to explore these options once her possible treatments options are fully determined. - We discussed that if she was unable to participate in complex medical decision-making, her two adult children would be LNOK . Pt voiced she would like to name her sister Gayla as her HCPOA. She would like to further discuss this with Gayla dao. Palliative Care will follow up in the morning and assist with filling out HCPOA paperwork if she is ready to complete. - Reviewed pt's current code status of Full Code. Explained differences in Full Code, DNRCC-Arrest, DNI and DNRCC. Pt expressed a clear understanding that she remains a Full Code at this time. She expressed gratitude for education on code status options and voiced she will continue to discuss these options with her sister Gayla. At this time, she wishes to remain a Full Code and seeks all aggressive life prolonging therapies. - Palliative will continue to follow up in the coming days to assist in establishing prognostic awareness, goals, and preferences in the setting of her current clinical condition. CC: Mj Villegas - Time Spent with Patient Time: Total time spent is greater than 50% in coordination of care (as documented) at patient's floor/unit and/or counseling patient: 110 minutes. Time with patient: 60 minutes Past Med Surg Social Fam HX - Past Medical History Medical history: arthritis, atrial fibrillation, COPD, coronary artery disease, DVT, hyperlipidemia, hypertension, migraine, myocardial infarction, peripheral artery disease Additional medical history: GA with angioplasty, cardiac stents. PE Psychiatric history: anxiety, depression - Past Surgical History Surgical History: angioplasty/stent, cholecystectomy, hysterectomy Additional surgical history: right knee replacement. 4 cardiac stents. 1 renal stent - Social History Smoking Status: Current every day smoker Smokeless Tobacco Status: No Alcohol use: none Drug use: none - Family History Mother Adopted: No Living Status: Hx Family Cardiac Disorders: Yes Hx Family Respiratory Disorders: Yes Hx Family Cancer: No Hx Family GI Disorders: No Hx Family Endocrine Disorder: Yes Hx Family Neuromuscular Disorders: No Hx Family Neurologic Disorders: No Hx Family HEENT Disorders: No Hx Family Autoimmune Disorders: No Father Adopted: No Living Status: Hx Family Cardiac Disorders: Yes Hx Family Respiratory Disorders: No Hx Family Cancer: Yes (Prostate) Hx Family GI Disorders: No Hx Family Endocrine Disorder: Yes (DM) Hx Family Neuromuscular Disorders: No Hx Family Neurologic Disorders: No Hx Family HEENT Disorders: No Hx Family Autoimmune Disorders: No Medications and Allergies Albuterol Neb [Proventil Neb] 2.5 mg IH Q4HR PRN #100 vial.neb 02/15/18 [Rx] Aspirin 81 mg PO DAILY #30 tab.chew 02/15/18 [Rx] Atorvastatin Calcium [Lipitor] 80 mg PO HS #30 tablet 02/15/18 [Rx] Metformin HCl [Glucophage] 1,000 mg PO BID #60 tablet 02/15/18 [Rx] Ranolazine [Ranexa] 500 mg PO BID 30 Days #60 tab.er.12h 02/15/18 [Rx] Magnesium Oxide [Mag-Oxide Magnesium] 400 mg PO DAILY 02/27/19 [History] Tizanidine HCl 2 mg PO TID PRN 02/27/19 [History] Venlafaxine [Effexor] 75 mg PO BID 02/27/19 [History] Apixaban [Eliquis] 5 mg PO BID #60 tablet 03/04/19 [Rx] Albuterol Sulfate [Ventolin Hfa] 1 puff IH Q6H PRN 06/13/19 [History] Ergocalciferol (VITAMIN D2) [Vitamin D2] 50,000 unit PO TU 06/13/19 [History] Montelukast [Singulair] 10 mg PO DAILY 06/13/19 [History] Gabapentin [Neurontin] 300 mg PO TID #90 capsule 06/23/19 [Rx] clonazePAM [Klonopin] 0.5 mg PO TID PRN 4 Days #12 tablet 06/23/19 [Rx] Dicyclomine Hcl [Bentyl] 20 mg PO BID 07/02/19 [History] Omeprazole [PriLOSEC] 40 mg PO DAILY 07/02/19 [History] Ondansetron HCl 4 mg PO BID PRN 07/02/19 [History] Potassium Chloride [K-Tab ER] 10 meq PO DAILY 07/02/19 [History] Clopidogrel [Plavix] 75 mg PO DAILY #30 tablet 07/06/19 [Rx] Losartan [Cozaar] 12.5 mg PO DAILY #15 tablet 07/06/19 [Rx] Metoprolol XL (24 HR) Succ [Toprol XL] 50 mg PO BID #60 tab 07/06/19 [Rx] Furosemide [Lasix] 20 mg PO HS 08/09/19 [History] Furosemide [Lasix] 40 mg PO QAM 08/09/19 [History] Allergy/AdvReac Type Severity Reaction Status Date / Time No Known Allergies Allergy Verified 07/02/19 16:44 - Constitutional Constitutional ROS PAL: fatigue, frequent falls, lethargy - Cardiovascular Cardiovascular ROS: dyspnea on exertion, no syncope - Respiratory Respiratory: cough, dyspnea, dyspnea on exertion, wheezing - Gastrointestinal Gastrointestinal: loose stools, no abdominal pain Additional comments: reports chronic loose stools for several years - Genitourinary Palliative ROS female: hematuria, no urinary hesitancy, no urinary incontinence - Musculoskeletal Musculoskeletal ROS IM: back pain Additional comments: reports back pain is chronic - Neurological Neurological ROS: no abnormal movements, no behavioral changes, no confusion, no headache(s) - Psychiatric Psychiatric general PM: anxiety Palliative Care-Exam - Constitutional Vitals: Temp Pulse Resp BP Pulse Ox 97.6 F 86 22 119/87 92 08/12/19 08:49 08/12/19 08:49 08/12/19 08:49 08/12/19 08:49 08/12/19 08:49 Exam: CONSTITUTIONAL/GENERAL: Awake, interactive, NAD, sitting up in bed. Ear/Nose/Mouth/Throat (EMNT): Patent, atraumatic. CARDIOVASCULAR: Pulse regular; No cyanosis/ischemia. RESPIRATORY: Unlabored. Wheezing noted, dyspnea on exertion at times, oxygen via NC. GASTROINTESTINAL: Soft, non-distended. Active bowel sounds present. No tenderne ss to palpation. GENITOURINARY: Voiding without difficulty, hematuria per pt. MUSCULOSKELETAL: No deformities; No joint swelling or erythema. INTEGUMENTARY: Multiple areas of mild ecchymosis. NEUROLOGIC: No gross motor or sensory deficits appreciated. Ambulating with walker. PSYCHIATRY: Alert, attentive. Behavior appropriate to situation. Internal Medicine - CN: Reslt - Labs CBC & Chem 7: 08/12/19 03:00 08/12/19 03:00 Labs: Short CBC 08/12/19 Range/Units 03:00 WBC 7.2 (4.3-11.1) K/mcL Hgb 10.6 L (11.5-15.4) g/dL Hct 34.1 L (35.3-44.9) % Plt Count 274 (140-400) K/mcL BMP 08/12/19 03:00 Sodium 138 Potassium 3.9 Chloride 102 Carbon Dioxide 29 BUN 21 Creatinine 0.72 Glucose 181 H Calcium 9.2 - ABG Interpretation ABG results: PT/INR, D-dimer PT 15.8 Seconds (9.4-12.1) H 08/12/19 03:00 Consult Discharge Plan - Plan Referrals: Maddie Morton [Primary Care Provider] - Palliative Quality Palliative Quality: Screen for Code Status: Yes (At this time, pt remains a Full Code and wishes to pursue all aggressive life prolonging therapies. ), Screen for Goals of Care: Yes (Goals of Care discussion with pt today as per chart. ), Screen for Pain: Yes, If Pain Regimen Started, Initiate Bowel Regimen: NA, Screen for Nausea/Vomitting: Yes Code Status: 08/09/19 19:29 Resuscitation Status: Active [RES] Routine Comment: Resuscitation Status: Full Code
[2019-08-12 10:14] LABS: Source of Body Fluid RUL BAL
--- NOTE | 2019-08-12 10:37 | Anesthesia Evaluation Post Op ---
Date of Encounter: 08/12/19 Time of Encounter: 10:36 - Vital Signs Vital Signs: Vital Signs/O2 Sat/Glucose, Most Recent Temp Pulse Resp BP Pulse Ox 97.2 F L 86 16 110/78 96 08/12/19 10:30 08/12/19 10:30 08/12/19 10:30 08/12/19 10:30 08/12/19 10:30 Blood Glucose* 131 - Airway Airway: Non-obstructed - Cardiovascular Baseline Rhythm - Mental Status Mental Status: Alert & Oriented, Answers Appropriately - Pain Pain Scale: 0 - Nausea Vomiting Nausea Vomiting: Not Present Notes: Patient has no complaints. Breathing at baseline per patient. VSS. - Discharge PostOp Status: Transfer Patient to floor
--- NOTE | 2019-08-12 11:20 | Internal Med Progress Note ---
Hospitalist Progress Note - Encounter Date of Encounter: 08/12/19 Time of Encounter: 08:30 - Subjective Interval History: Patient was seen after her bronchoscopy. She denied any chest pain, shortness of breath or palpitation. Her breathing is improving since presentation. She had no abdominal pain, nausea or vomiting. Her urine is clearing and she denied any more hematuria. - Exam Vitals: Temp Pulse Resp BP Pulse Ox 97.2 F L 86 16 110/78 96 08/12/19 10:30 08/12/19 10:30 08/12/19 10:30 08/12/19 10:30 08/12/19 10:30 Exam: General: Ill-appearing and in no acute distress. HEENT: No erythema of posterior pharynx. No exudates. Lymphatics: No mandibular or cervical lymphadenopathy Cardiovascular: Normal rate and irregular rhythm. No murmurs. Lungs: Decreased lung sounds at the bases. Bibasilar crackles Abdomen: Non-tender. No rebound or gaurding. Nl bowel sounds. Extremities: No edema. 2+ pulses radial and pedal pulses Skin: No rahses, abrasions, or contusions. Nl cap refill. Psych: Nl attention. A&Ox3 Neuro: final assembler boat II-XII intact. 5/5 strength. Sensation to light touch and pinprick intact. - Assessment and Plan (1) CAD (coronary artery disease) Current Visit: Yes Status: Acute (2) Acute and chronic respiratory failure with hypoxia Current Visit: Yes Status: Resolved (3) Colitis Current Visit: Yes Status: Resolved (4) Concern about cancer without diagnosis Current Visit: Yes Status: Acute (5) Ascending aorta dilation Current Visit: Yes Status: Acute (6) Hematuria Current Visit: Yes Status: Acute (7) Iliac artery dissection Current Visit: Yes Status: Acute (8) Atrial fibrillation with RVR Current Visit: Yes Status: Acute (9) DVT prophylaxis Current Visit: Yes Status: Acute (10) CHF exacerbation Current Visit: No Status: Acute (11) Protein-calorie malnutrition, severe Current Visit: Yes Status: Acute - Summary of Assessment and Plan Summary of Assessment and Plan: 68-year-old female with history of A. fib, HFrEF, PE, HTN,PAD, diabetes who was admitted to the hospital due to GROSS hematuria. Gross hematuria: Results, negative UCx. Hemoglobin is stable. Resume Eliquis tomorrow. Urology is following, outpatient status cup he is recommended. High risk for malignancy given her prolonged smoking hx. Atrial fibrillation: off diltiazem drip, cardiology is consulted. Increased metoprolol to 75 mg twice a day. Colitis: Found on CT scan in the ascending colon and hepatic flexure which could represent ischemia, infection or inflammatory, DC Zosyn as I believe it is more ischemic in nature from her Tachycardia likely. denied any abdominal pain or diarrhea. Decompensated HFrEF: likely from HER RVR. Continue IV Lasix, total I&O -700ML . Limited ECHO with EF 35-40%. Troponin elevation: Peak to 0.04, likely type II event due to tachycardia. CAD status post PCI 07/05/19: Continue Plavix, asa, BB and Lipitor. Patient is asymptomatic Questionable malignancy: Right upper lobe enlarging nodules concerning for malignancy with interval progression of mediastinal and bilateral hilar lymphade nopathy likely regression of metastatic disease, she smokes 23 packs of cigarettes for 50 years. Pulmonary is consulted, had bronchoscopy today with pending biopsies. prognosis is guarding. consult PALLIATIVE team and oncology. She may not be a good candidate for treatment if biopsies turn to be positive for malignancy. Abdominal AAA: Measures 3.3 cm, follow-up is recommended in 3 years, vascular surgery is consulted. 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 Ascending aorta dilation: Consult placed for vascular surgery. Tobacco abuse: long discussion and counseling to quit smoking. Patient is at high risk of complications and her prognosis is guarding. I believe that goals of cares discussion is important at this point given all her comorbidities and above findings. We will continue to follow. DVT: scd - Time Spent with Patient Total time spent is greater than 50% in coordination of care (as documented) at patient's floor/unit and/or counseling patient: Plan of Care Discussed with: patient Internal Medicine: Result - Labs CBC & Chem 7: 08/12/19 03:00 08/12/19 03:00 Labs: Short CBC 08/12/19 Range/Units 03:00 WBC 7.2 (4.3-11.1) K/mcL Hgb 10.6 L (11.5-15.4) g/dL Hct 34.1 L (35.3-44.9) % Plt Count 274 (140-400) K/mcL BMP 08/12/19 03:00 Sodium 138 Potassium 3.9 Chloride 102 Carbon Dioxide 29 BUN 21 Creatinine 0.72 Glucose 181 H Calcium 9.2 - ABG Interpretation ABG results: PT/INR, D-dimer PT 15.8 Seconds (9.4-12.1) H 08/12/19 03:00 Consult Discharge Plan - Plan Referrals: Maddie Morton [Primary Care Provider] - (1) CAD (coronary artery disease) Qualifiers: Coronary Disease-Associated Artery/Lesion type: [place] artery [place] vs. transplanted heart: [place] heart Associated angina: with stable angina Qualified Code(s): I25.118 - Atherosclerotic heart disease of [place] coronary a rtery with other forms of angina pectoris (6) Hematuria Qualifiers: Hematuria type: gross Qualified Code(s): R31.0 - Gross hematuria (10) CHF exacerbation Qualifiers: Heart failure type: systolic Qualified Code(s): I50.23 - Acute on chronic systolic (congestive) heart failure
--- NOTE | 2019-08-12 12:22 | Electrocardiograph Report ---
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
[2019-08-12 12:37] LABS: Appearance of Body Fluid Cloudy (Clear)
[2019-08-12 12:38] LABS: Volume of Body Fluid 21 mL
[2019-08-12] MEDS: Cholecalciferol (D-3) 1,000 UNIT (25MCG) TABLET PO SCH (15:13)
[2019-08-12] MEDS: clonazePAM 1 MG TABLET PO PRN ×2 (16:39→21:44)
[2019-08-12] MEDS: Furosemide 40 MG TABLET PO SCH (16:40)
[2019-08-12] MEDS ORDERED: Dextrose Gel 15 GM/37.5 ML TUBE PO PRN ×2 (20:48)
[2019-08-12] MEDS ORDERED: *HR* Dextrose 50 % in Water (Syg) 50 ML SYRINGE IVP PRN (20:48)
[2019-08-12] MEDS ORDERED: D5% in Water 1,000 ML IVC PRN (20:48)
[2019-08-12] MEDS ORDERED: Insulin DETEMIR 100 UNIT/ML X5UNITS SQ ONE (20:49)
[2019-08-12] MEDS ORDERED: Insulin LISPRO 300 UNITS/3 ML VIAL SQ SCH (21:00)
[2019-08-12] MEDS ORDERED: Insulin Human Regular 10 UNIT in 0.9 % Sodium Chloride 10 ML IV ONE (23:11)
[2019-08-13] MEDS: Levalbuterol Neb 1.25 MG/3 ML IH SCH ×2 (04:23→10:36)
[2019-08-13 06:08] LABS: Hemoglobin 9.1 g/dL (11.5-15.4); Mean Corpuscular HGB Conc 30.3 g/dL (31.6-35.5); Mean Corpuscular Hemoglobin 28.5 pg (28.0-33.3); Mean Platelet Volume 9.8 fL (9.4-12.4); Platelet Count 216 K/mcL (140-400); Red Blood Count 3.19 M/mcL (3.82-4.97); Red Cell Distribution Width 18.2 % (11.5-14.5); White Blood Count 10.5 K/mcL (4.3-11.1)
[2019-08-13 06:32] LABS: BUN/Creatinine Ratio 34 (6-26); Blood Urea Nitrogen 23 mg/dL (8-23); Calcium 9.2 mg/dL (8.6-10.3); Carbon Dioxide 30 mEq/L (23-29); Chloride 103 mEq/L (98-107); Glucose 132 mg/dL (70-105); Osmolality,Calculated 298 (280-300); Potassium 3.6 mEq/L (3.5-5.1); Sodium 141 mEq/L (136-145); eGFR For African Americans > 60 (> 60); eGFR For Non-African Americans > 60 (> 60)
[2019-08-13 07:13] VITALS: BP 121/72
[2019-08-13] MEDS ORDERED: Insulin LISPRO 300 UNITS/3 ML VIAL SQ SCH (07:30)
[2019-08-13] MEDS: Ranolazine 500 MG TAB.ER.12H PO SCH (07:38)
[2019-08-13] MEDS: Gabapentin 300 MG CAPSULE PO SCH (07:38)
[2019-08-13] MEDS: Metoprolol XL (24 HR) Succ 50 MG TAB.ER.24H PO SCH (07:39)
[2019-08-13] MEDS: Magnesium Oxide 400 MG TABLET PO SCH (07:39)
[2019-08-13] MEDS: Aspirin 81 MG TAB.CHEW PO SCH (07:39)
[2019-08-13] MEDS: Cholecalciferol (D-3) 1,000 UNIT (25MCG) TABLET PO SCH (07:39)
[2019-08-13] MEDS: Furosemide 40 MG TABLET PO SCH (07:39)
[2019-08-13] MEDS ORDERED: Apixaban 5 MG TABLET PO SCH (09:00)
[2019-08-13] MEDS ORDERED: predniSONE 20 MG TABLET PO SCH (09:00)
--- NOTE | 2019-08-13 09:12 | Urology Progress Note ---
<Jazzy Dudley N - Last Filed: 08/13/19 09:10> Date of Encounter: 08/13/19 Time of Encounter: 09:00 - Assessment and Plan (1) Gross hematuria Status: Acute Assessment and plan: Patient is a 68-year-old female who presents with a history of gross hematuria. Patient is planning discharge later today. We discussed outpatient follow-up, and patient was unaware she missed her previous cystoscopy appointment. We discussed the importance of compliance due to our concern for possible urothelial malignancy. Patient will require an outpatient cystoscopy with Dr. Arevalo within 2 weeks of discharge. Progress Note Narrative: Patient seen and examined sitting upright in bed in no apparent distress. Patient reports she is voiding well without difficulty, and there was no visible blood in her urine this morning. Objective Initial Vital Signs Temp Pulse Resp BP Pulse Ox 97.6 F 138 20 109/82 97 08/09/19 13:14 08/09/19 13:14 08/09/19 13:14 08/09/19 13:14 08/09/19 13:14 - General physical appearance Present: no distress, no pain - Respiratory Present: normal expansion, normal respiratory effort - Abdomen Present: soft, non tender. Absent: distended - Genitourinary Urine Appearance: Present: Clear - Integumentary Present: no rash, no abnormal pigmentation - Musculoskeletal Present: normal posture - Psychiatric Present: oriented to time, oriented to person, oriented to place, speech is normal, memory intact - Labs 08/13/19 05:22 08/13/19 05:22 Diabetes panel 08/13/19 Range/Units 05:22 Sodium 141 (136-145) mEq/L Potassium 3.6 (3.5-5.1) mEq/L Chloride 103 (98-107) mEq/L Carbon Dioxide 30 H (23-29) mEq/L BUN 23 (8-23) mg/dL Creatinine 0.67 (0.60-1.20) mg/dL Glucose 132 H (70-105) mg/dL Calcium 9.2 (8.6-10.3) mg/dL Calcium panel 08/13/19 Range/Units 05:22 Calcium 9.2 (8.6-10.3) mg/dL Pituitary panel 08/13/19 Range/Units 05:22 Sodium 141 (136-145) mEq/L Potassium 3.6 (3.5-5.1) mEq/L Chloride 103 (98-107) mEq/L Carbon Dioxide 30 H (23-29) mEq/L BUN 23 (8-23) mg/dL Creatinine 0.67 (0.60-1.20) mg/dL Glucose 132 H (70-105) mg/dL Calcium 9.2 (8.6-10.3) mg/dL Adrenal panel 08/13/19 Range/Units 05:22 Sodium 141 (136-145) mEq/L Potassium 3.6 (3.5-5.1) mEq/L Chloride 103 (98-107) mEq/L Carbon Dioxide 30 H (23-29) mEq/L BUN 23 (8-23) mg/dL Creatinine 0.67 (0.60-1.20) mg/dL Glucose 132 H (70-105) mg/dL Calcium 9.2 (8.6-10.3) mg/dL Consult Discharge Plan - Plan Instructions: Acute Hematuria (DC), Dyspnea (GEN) Referrals: Maddie Morton [Primary Care Provider] - 08/20/19 12:30 pm (apt made on 08/13/2019.) Dao Watson MD [Partnered Physician] - (web request made on 08/13/2019. Facility will get in contact with patient and set up an apt. ) Ruthie Watson DO [Non-Partnered Physician] - Salo Arevalo MD [Partnered Physician] - 08/21/19 11:00 am (Apt made on 08/13/2019.) Prescriptions: Metoprolol XL (24 HR) Succ [Toprol Xl] 75 mg PO BID #90 tab.er.24h Prescription Printed <Ra Hodges - Last Filed: 08/13/19 14:01> Date of Encounter: 08/13/19 - Assessment and Plan (1) Gross hematuria Status: Acute (2) Acute cystitis with hematuria Status: Acute Progress Note Narrative: Patient was discussed with but not seen. Patient left before being seen.. Plan is written by Jazzy Dudley. Objective Initial Vital Signs Temp Pulse Resp BP Pulse Ox 97.6 F 138 20 109/82 97 08/09/19 13:14 08/09/19 13:14 08/09/19 13:14 08/09/19 13:14 08/09/19 13:14 - Labs 08/13/19 05:22 08/13/19 05:22 Diabetes panel 08/13/19 08/13/19 Range/Units 05:22 05:22 Sodium 141 (136-145) mEq/L Potassium 3.6 (3.5-5.1) mEq/L Chloride 103 (98-107) mEq/L Carbon Dioxide 30 H (23-29) mEq/L BUN 23 (8-23) mg/dL Creatinine 0.67 (0.60-1.20) mg/dL Glucose 132 H (70-105) mg/dL Hemoglobin A1c 6.1 H ( - 5.6) % Calcium 9.2 (8.6-10.3) mg/dL Calcium panel 08/13/19 Range/Units 05:22 Calcium 9.2 (8.6-10.3) mg/dL Pituitary panel 08/13/19 Range/Units 05:22 Sodium 141 (136-145) mEq/L Potassium 3.6 (3.5-5.1) mEq/L Chloride 103 (98-107) mEq/L Carbon Dioxide 30 H (23-29) mEq/L BUN 23 (8-23) mg/dL Creatinine 0.67 (0.60-1.20) mg/dL Glucose 132 H (70-105) mg/dL Calcium 9.2 (8.6-10.3) mg/dL Adrenal panel 08/13/19 Range/Units 05:22 Sodium 141 (136-145) mEq/L Potassium 3.6 (3.5-5.1) mEq/L Chloride 103 (98-107) mEq/L Carbon Dioxide 30 H (23-29) mEq/L BUN 23 (8-23) mg/dL Creatinine 0.67 (0.60-1.20) mg/dL Glucose 132 H (70-105) mg/dL Calcium 9.2 (8.6-10.3) mg/dL
--- NOTE | 2019-08-13 10:08 | Discharge Summary ---
- NOTES TO OUTPATIENT PROVIDER Notes to Outpatient Provider: Patient was admitted for gross hematuria and she will follow with urology as outpatient. Anticoagulation resumed and her hemoglobin was stable. She was also found to have enlarging lung nodule with mediastinal lymphadenopathy for which she had bronchoscopy with biopsy. Biopsy results are pending. She will also follow up with oncology for possible options and treatments. Orders not resulted at time of discharge: Pending orders 08/12/19 09:45 AFB Culture, Respiratory [TB] Routine AFB Smear [TB] Routine Culture,Respiratory,w Gram St [RM] Routine Fungal Culture [MYC] Routine 08/12/19 09:47 Cytology [PTH] Routine Date of Encounter: 08/13/19 Time of Encounter: 10:20 - Discharge Diagnosis (1) Hematuria Priority: Primary Status: Resolved Qualifiers: Hematuria type: gross Qualified Code(s): R31.0 - Gross hematuria (2) CAD (coronary artery disease) Priority: Secondary Status: Chronic Qualifiers: Coronary Disease-Associated Artery/Lesion type: [place] artery [place] vs. transplanted heart: [place] heart Associated angina: with stable angina Qualified Code(s): I25.118 - Atherosclerotic heart disease of [place] coronary artery with other forms of angina pectoris (3) Acute and chronic respiratory failure with hypoxia Priority: Secondary Status: Resolved (4) Colitis Priority: Secondary Status: Resolved (5) Concern about cancer without diagnosis Priority: Secondary Status: Acute (6) Ascending aorta dilation Priority: Secondary Status: Acute (7) Iliac artery dissection Priority: Secondary Status: Acute (8) Atrial fibrillation with RVR Priority: Secondary Status: Resolved (9) DVT prophylaxis Priority: Secondary Status: Acute (10) CHF exacerbation Priority: Secondary Status: Acute Qualifiers: Heart failure type: systolic Qualified Code(s): I50.23 - Acute on chronic systolic (congestive) heart failure (11) Protein-calorie malnutrition, severe Priority: Secondary Status: Acute Hospital course: Ms. Costa is a 68 year old female A. fib, HFrEF, PE, HTN,PAD, tobacco abuse,diabetes, AAA who came into the hospital due to gross hematuria for 3 weeks duration. Patient was supposed to follow-up with urology for second scope as outpatient but she skipped her appointment and she presented to the hospital. Urine cultures were negative and Her hematuria resolved at discharge. Patient was initially in active hypoxic respiratory failure due to decompensated heart failure and A. fib with RVR. Her metoprolol dose was increased and she was placed on IV diuretics with good control of her symptoms and her heart rate. She was also found to have enlarging lung nodules and mediastinal lymphadenopathy concerning for malignancy. Pulmonary service was consulted and patient had bronchoscopy with biopsies which are pending. Oncology service was involved and patient will follow as outpatient to discuss treatment options. Palliative team was also involved and patient remained full code. She had abdominal AAA which would require vascular surgery follow-up. Today patient is clinically stable and hemodynamically stable. She will be discharged home in stable condition to follow up with oncology and urology as outpatient. Discharge discussed with: patient - Time Spent with Patient Total time spent providing and/or coordinating discharge services: 35 minutes - Discharge Medications Prescriptions: New Metoprolol XL (24 HR) Succ [Toprol Xl] 75 mg PO BID #90 tab.er.24h Continued Albuterol Neb [Proventil Neb] 2.5 mg IH Q4HR PRN #100 vial.neb PRN Reason: Dyspnea Aspirin 81 mg PO DAILY #30 tab.chew Atorvastatin Calcium [Lipitor] 80 mg PO HS #30 tablet Metformin HCl [Glucophage] 1,000 mg PO BID #60 tablet Ranolazine [Ranexa] 500 mg PO BID 30 Days #60 tab.er.12h Magnesium Oxide [Mag-Oxide Magnesium] 400 mg PO DAILY Tizanidine HCl 2 mg PO TID PRN PRN Reason: MUSCLE SPASMS Venlafaxine [Effexor] 75 mg PO BID Apixaban [Eliquis] 5 mg PO BID #60 tablet Albuterol Sulfate [Ventolin Hfa] 1 puff IH Q6H PRN PRN Reason: Shortness Of Breath Ergocalciferol (VITAMIN D2) [Vitamin D2] 50,000 unit PO TU Montelukast [Singulair] 10 mg PO DAILY Gabapentin [Neurontin] 300 mg PO TID #90 capsule Dicyclomine Hcl [Bentyl] 20 mg PO BID Omeprazole [PriLOSEC] 40 mg PO DAILY Ondansetron HCl 4 mg PO BID PRN PRN Reason: NAUSEA/VOMITING Potassium Chloride [K-Tab ER] 10 meq PO DAILY Clopidogrel [Plavix] 75 mg PO DAILY #30 tablet Losartan [Cozaar] 12.5 mg PO DAILY #15 tablet Furosemide [Lasix] 20 mg PO HS Furosemide [Lasix] 40 mg PO QAM Changed clonazePAM [Klonopin] 1 mg PO TID PRN 4 Days #12 tablet PRN Reason: Anxiety Discontinued Metoprolol XL (24 HR) Succ [Toprol XL] 50 mg PO BID #60 tab Home Medications: Albuterol Neb [Proventil Neb] 2.5 mg IH Q4HR PRN #100 vial.neb 02/15/18 [Rx] Aspirin 81 mg PO DAILY #30 tab.chew 02/15/18 [Rx] Atorvastatin Calcium [Lipitor] 80 mg PO HS #30 tablet 02/15/18 [Rx] Metformin HCl [Glucophage] 1,000 mg PO BID #60 tablet 02/15/18 [Rx] Ranolazine [Ranexa] 500 mg PO BID 30 Days #60 tab.er.12h 02/15/18 [Rx] Magnesium Oxide [Mag-Oxide Magnesium] 400 mg PO DAILY 02/27/19 [History] Tizanidine HCl 2 mg PO TID PRN 02/27/19 [History] Venlafaxine [Effexor] 75 mg PO BID 02/27/19 [History] Apixaban [Eliquis] 5 mg PO BID #60 tablet 03/04/19 [Rx] Albuterol Sulfate [Ventolin Hfa] 1 puff IH Q6H PRN 06/13/19 [History] Ergocalciferol (VITAMIN D2) [Vitamin D2] 50,000 unit PO TU 06/13/19 [History] Montelukast [Singulair] 10 mg PO DAILY 06/13/19 [History] Gabapentin [Neurontin] 300 mg PO TID #90 capsule 06/23/19 [Rx] Dicyclomine Hcl [Bentyl] 20 mg PO BID 07/02/19 [History] Omeprazole [PriLOSEC] 40 mg PO DAILY 07/02/19 [History] Ondansetron HCl 4 mg PO BID PRN 07/02/19 [History] Potassium Chloride [K-Tab ER] 10 meq PO DAILY 07/02/19 [History] Clopidogrel [Plavix] 75 mg PO DAILY #30 tablet 07/06/19 [Rx] Losartan [Cozaar] 12.5 mg PO DAILY #15 tablet 07/06/19 [Rx] Furosemide [Lasix] 20 mg PO HS 08/09/19 [History] Furosemide [Lasix] 40 mg PO QAM 08/09/19 [History] Metoprolol XL (24 HR) Succ [Toprol Xl] 75 mg PO BID #90 tab.er.24h 08/13/19 [Rx] clonazePAM [Klonopin] 1 mg PO TID PRN 4 Days #12 tablet 08/13/19 [Rx] Allergies/Adverse Reactions: Allergy/AdvReac Type Severity Reaction Status Date / Time No Known Allergies Allergy Verified 07/02/19 16:44 Date of admission: 08/11/19 14:51 Primary care physician: Maddie Morton Consults: 08/09/19 17:36 Consult to Urology [CONS] Stat Consulting Provider: [facility] [place] Reason for Consult: hematuria x 2 weeks Time Notified: 17:36 Call Completed: Yes 08/09/19 18:34 Consult to Pulmonology [CONS] Routine Consulting Provider: [facility] [place] Reason for Consult: concern for new lung cancer Call Completed: No 08/09/19 18:36 Consult to Cardiology [CONS] Routine Comment: Consulting Provider: [facility] [place] Reason for Consult: Recent C presents with worsening HF (BNP >3000), afib with RVR, trop elevation Call Completed: No 08/09/19 19:23 Consult to Nutrition [CONS] Routine Comment: Consulting Provider: NUTRITION Reason for Dietary Consult: MST Score 08/10/19 11:48 Consult to Vascular Surgery [CONS] Routine Consulting Provider: [facility] [place] Reason for Consult: dilatation of the descending aorta as well as abdominal aortic aneurysm as well as dissection of the left common iliac artery as well as obstruction of the femorofemoral bypass Call Completed: No 08/10/19 11:55 Consult to Palliative Care [CONS] Routine Comment: Consulting Provider: [facility] [place] Reason for Consult: Multiple comorbidities, recent enlarging lung nodule with mediastinal lymph node which could be metastatic disease. Discuss goals of cares. Call Completed: No 08/11/19 12:36 Consult to Oncology Hematology [CONS] Routine Consulting Provider: Sarah Ramirez Reason for Consult: Enlarging lung nodules concerning for malignancy. Bronchoscopy with Bx on Monday. Establish care while in patient. Call Completed: No 08/12/19 12:23 Consult to Occupational Therapy [CONS] Routine Comment: Evaluate, develop and implement POC Reason for Consult: evaluate the need for skilled placement Does patient have active BEDREST order?: No Is patient medically & hemodynamically stable?: Yes Consult to Physical Therapy [CONS] Routine Comment: Evaluate, develop and implement POC Reason for Consult: evaluate the need for skilled placement Does patient have active BEDREST order?: No Is patient medically & hemodynamically stable?: Yes - Constitutional Vitals: Temp Pulse Resp BP Pulse Ox 97.7 F 99 15 121/72 93 08/13/19 07:12 08/13/19 07:12 08/13/19 07:12 08/13/19 07:12 08/13/19 07:12 Exam: General: Ill-appearing and in no acute distress. HEENT: No erythema of posterior pharynx. No exudates. Lymphatics: No mandibular or cervical lymphadenopathy Cardiovascular: Normal rate and irregular rhythm. No murmurs. Lungs: Clear lung sounds bilaterally. Abdomen: Non-tender. No rebound or gaurding. Nl bowel sounds. Extremities: No edema. 2+ pulses radial and pedal pulses Skin: No rahses, abrasions, or contusions. Nl cap refill. Psych: Nl attention. A&Ox3 Neuro: flute teacher II-XII intact. 5/5 strength. Sensation to light touch and pinprick intact. - Patient Status Disposition: Home Health Service Condition: Good Functional capacity at discharge: uses cane/walker Overall status at discharge: patient is back to baseline - Discharge Instructions Follow Up With: Maddie Morton [Primary Care Provider] - Ruthie Watson DO [Non-Partnered Physician] - Salo Arevalo MD [Partnered Physician] - Forms: ED Satisfaction Letter - Diet and Activity Activity: as per physical therapy Diet: diabetic diet
[2019-08-13 10:15] LABS: Estimated Average Glucose 128 mg/dl
--- NOTE | 2019-08-13 10:19 | Physician Discharge Referral ---
Home Health/Hosp Referral Info Transfer to: Home Health Provider in Charge Post Discharge: PCP - Diagnosis (1) Hematuria Priority: Primary Status: Resolved (2) CAD (coronary artery disease) Priority: Secondary Status: Chronic (3) Acute and chronic respiratory failure with hypoxia Priority: Secondary Status: Resolved (4) Colitis Priority: Secondary Status: Resolved (5) Concern about cancer without diagnosis Priority: Secondary Status: Acute (6) Ascending aorta dilation Priority: Secondary Status: Acute (7) Iliac artery dissection Priority: Secondary Status: Acute (8) Atrial fibrillation with RVR Priority: Secondary Status: Resolved (9) DVT prophylaxis Priority: Secondary Status: Acute (10) CHF exacerbation Priority: Secondary Status: Acute (11) Protein-calorie malnutrition, severe Priority: Secondary Status: Acute - Respiratory Orders Oxygen / L per min (2-3) Smoking Cessation: Smoking cessation has been advised. For more information, call the [place] Tobacco Quit Line at 2-518-JFYQ-NOW. - Diet/Nutrition Diet/Nutrition Orders: Cardiac (diabetic) - Activity Activity Orders: Ambulate - Services Needed Following services are medically necessary services: Nursing, Physical Therapy, Occupational Therapy - Transfer Medications Prescriptions: Metoprolol XL (24 HR) Succ [Toprol Xl] 75 mg PO BID #90 tab.er.24h Prescription Printed Home Medications: Albuterol Neb [Proventil Neb] 2.5 mg IH Q4HR PRN #100 vial.neb 02/15/18 [Rx] Aspirin 81 mg PO DAILY #30 tab.chew 02/15/18 [Rx] Atorvastatin Calcium [Lipitor] 80 mg PO HS #30 tablet 02/15/18 [Rx] Metformin HCl [Glucophage] 1,000 mg PO BID #60 tablet 02/15/18 [Rx] Ranolazine [Ranexa] 500 mg PO BID 30 Days #60 tab.er.12h 02/15/18 [Rx] Magnesium Oxide [Mag-Oxide Magnesium] 400 mg PO DAILY 02/27/19 [History] Tizanidine HCl 2 mg PO TID PRN 02/27/19 [History] Venlafaxine [Effexor] 75 mg PO BID 02/27/19 [History] Apixaban [Eliquis] 5 mg PO BID #60 tablet 03/04/19 [Rx] Albuterol Sulfate [Ventolin Hfa] 1 puff IH Q6H PRN 06/13/19 [History] Ergocalciferol (VITAMIN D2) [Vitamin D2] 50,000 unit PO TU 06/13/19 [History] Montelukast [Singulair] 10 mg PO DAILY 06/13/19 [History] Gabapentin [Neurontin] 300 mg PO TID #90 capsule 06/23/19 [Rx] Dicyclomine Hcl [Bentyl] 20 mg PO BID 07/02/19 [History] Omeprazole [PriLOSEC] 40 mg PO DAILY 07/02/19 [History] Ondansetron HCl 4 mg PO BID PRN 07/02/19 [History] Potassium Chloride [K-Tab ER] 10 meq PO DAILY 07/02/19 [History] Clopidogrel [Plavix] 75 mg PO DAILY #30 tablet 07/06/19 [Rx] Losartan [Cozaar] 12.5 mg PO DAILY #15 tablet 07/06/19 [Rx] Furosemide [Lasix] 20 mg PO HS 08/09/19 [History] Furosemide [Lasix] 40 mg PO QAM 08/09/19 [History] Metoprolol XL (24 HR) Succ [Toprol Xl] 75 mg PO BID #90 tab.er.24h 08/13/19 [Rx] clonazePAM [Klonopin] 1 mg PO TID PRN 4 Days #12 tablet 08/13/19 [Rx] Allergies/Adverse Reactions: Allergy/AdvReac Type Severity Reaction Status Date / Time No Known Allergies Allergy Verified 07/02/19 16:44 Certification: Further, I certify that my clinical findings support that this patient is homebound (i.e. absences from home require considerable and taxing effort and are for medical reasons or adventist services or infrequently or short duration when for other reasons) because: Homebound Reason: Patient requires assistance of a person or device to safely leave home Attestation: My signature below is to certify that this patient is under my care and that I, or nurse practitioner, or a physician's conventions assistant working with me, has a [id number] encounter with this patient.
[2019-08-13] MEDS ORDERED: FLU Vac QV 19-20 (6Month+)/PF 0.5 ML SYRINGE IM ONE (10:36)
[2019-08-13] MEDS: clonazePAM 1 MG TABLET PO PRN (11:30)
--- NOTE | 2019-08-13 11:41 | Palliative Progress Note ---
Date of Encounter: 08/13/19 Time of Encounter: 09:30 - Assessment and plan (1) Palliative care by specialist Status: Acute Assessment and plan: Pt currently has capacity to make complex medical decisions. Pt completed HCPOA paperwork today naming her sister Gayla as surrogate decision-maker and her sister Christi as alternate. Palliative Care has provided pt with copies of HCPOA paperwork. Copies have also been placed in pt's file to be scanned into the medical record here at [facility]. (2) Goals of care, counseling/discussion Status: Acute Assessment and plan: - Goals of Care discussion with Palliative Team this admission. See Palliative note 08/12/19 for additional details. - At this time, pt wishes to remain a Full Code and seeks all aggressive life prolonging therapies. - Lung biopsy results remain pending, pt to follow-up with Oncology outpatient. We again discussed services offered by Palliative Care and informed pt that [facility] does have liaison present at [facility] if she would like to further discuss hospice options in the future. (3) Suspected malignant neoplasm Status: Acute Assessment and plan: Right upper lobe enlarging nodules concerning for malignancy. Pulmonology and Oncology now following. S/p bronchoscopy with bx 08/12/19. Pt seeking aggressive treatment options at this time. Plan to discharge today and f/u outpatient. (4) Decompensated heart failure Status: Chronic Assessment and plan: Danielley worsened d/t AF RVR. EF 35-40% per last Echo. Cardiology consulted this admission per primary team. Pt currently on Lasix. (5) Coronary artery disease Status: Chronic Assessment and plan: s/p PCI 07/05/19. Continued management per primary team. Follows with OP Cardiology. Qualifiers: Coronary Disease-Associated Artery/Lesion type: unspecified vessel or lesion type [place] vs. transplanted heart: [place] heart Associated angina: angina presence unspecified Qualified Code(s): I25.10 - Atherosclerotic heart disease of [place] coronary artery without angina pectoris (6) Hematuria Status: Acute Assessment and plan: Pt was scheduled for OP cystoscopy, missed appointment. Urology now following. Qualifiers: Hematuria type: unspecified type Qualified Code(s): R31.9 - Hematuria, unspecified (7) Chronic anxiety Status: Acute Assessment and plan: Pt reports she has been on Klonopin for many years at home per PCP. (8) Chronic back pain Status: Chronic Assessment and plan: Pt reports chronic hx of lower back pain for many years. Reports she was previously on Percocet at home for many years but was recently weaned off per PCP. This is consistent with her OARRS report. She has tried Tylenol, Lidocaine patches and other alternative therapies in the past with little benefit. Recommend to continue to maximize non-opioid related treatments for chronic back pain such as: heat/ice, positioning, distraction. Pt currently on gabapentin at home. Qualifiers: Back pain location: low back pain Back pain laterality: midline Sciatica presence: unspecified whether sciatica present Qualified Code(s): M54.5 - Low back pain; G89.29 - Other chronic pain (9) Chronic pain of right lower extremity Status: Acute Assessment and plan: Chronic per pt r/t prior vascular surgeries to right leg. (10) Atrial fibrillation Status: Chronic Qualifiers: Atrial fibrillation type: unspecified Qualified Code(s): I48.91 - Unspecified atrial fibrillation (11) Current every day smoker Status: Chronic (12) Colitis Status: Acute - Time Spent With Patient Total time spent is greater than 50% in coordination of care (as documented) at patient's floor/unit and/or counseling patient: 40 minutes - Subjective Interval history: Pt sitting up in chair, NAD, appears comfortable. Pt reports she is to discharge home soon. Pt expressed yesterday that she would like to fill out HCPOA paperwork to name her sister Gayla as HCPOA. Healthcare Power of Director Of Strategic Programs paperwork signed by pt, witnessed and completed with Palliative Care during visit today. We again discussed her clinical condition, prognosis, and treatment options in the context of her values, preferences and goals. Lung biopsy results remain pending, pt to follow-up with Oncology outpatient. Discussed services offered by Palliative Care and informed pt that [facility] does have liaison present at [facility] if she would like to further discuss hospice options in the future. Pt denies any additional symptoms or needs at this time. - Constitutional Vitals: Abnormal lab results RBC 3.19 M/mcL (3.82-4.97) L 08/13/19 05:22 Hgb 9.1 g/dL (11.5-15.4) L D 08/13/19 05:22 Hct 30.0 % (35.3-44.9) L 08/13/19 05:22 MCHC 30.3 g/dL (31.6-35.5) L 08/13/19 05:22 RDW 18.2 % (11.5-14.5) H 08/13/19 05:22 PT 15.8 Seconds (9.4-12.1) H 08/12/19 03:00 Potassium 3.4 mEq/L (3.5-5.1) L 08/11/19 05:46 Carbon Dioxide 30 mEq/L (23-29) H 08/13/19 05:22 BUN/Creatinine Ratio 34 (6-26) H 08/13/19 05:22 Glucose 132 mg/dL (70-105) H 08/13/19 05:22 POC Glucose 255 mg/dL (70-99) H 08/13/19 03:20 Hemoglobin A1c 6.1 % (-5.6) H 08/13/19 05:22 Calculated Osmolality 301 (280-300) H 08/11/19 05:46 Direct Bilirubin 0.3 mg/dL (0.0-0.2) H 08/09/19 13:50 Troponin I 0.04 ng/mL (< 0.04) H* 08/09/19 20:14 B-Natriuretic Peptide 2521 pg/mL (Less than 100) H 08/11/19 05:46 Lipase 8 Units/L (11-82) L 08/09/19 13:50 Ur Specimen Adequacy See below A 08/09/19 14:30 Urine Color Red (Yellow) A 08/09/19 14:30 Urine Clarity Cloudy (Clear) A 08/09/19 14:30 Fluid Appearance Cloudy (Clear) A 08/12/19 09:45 Exam: CONSTITUTIONAL/GENERAL: Awake, interactive, NAD, sitting up in chair. CARDIOVASCULAR: Pulse regular; No cyanosis/ischemia. RESPIRATORY: Unlabored. Wheezing noted, dyspnea on exertion at times, oxygen via NC. GASTROINTESTINAL: Soft, non-distended. MUSCULOSKELETAL: No deformities; No joint swelling or erythema. INTEGUMENTARY: Multiple areas of mild ecchymosis. NEUROLOGIC: No gross motor or sensory deficits appreciated. Ambulating with walker. PSYCHIATRY: Alert, attentive. Behavior appropriate to situation. Palliative Quality Palliative Quality: Screen for Code Status: Yes (At this time, pt remains a Full Code and wishes to pursue all aggressive life prolonging therapies. ), Screen for Goals of Care: Yes (Goals of Care discussion with Palliative Team yesterday, 08/12/19. ), Screen for Pain: Yes, If Pain Regimen Started, Initiate Bowel Regimen: NA, Screen for Nausea/Vomitting: Yes Code Status: 08/09/19 19:29 Resuscitation Status: Active [RES] Routine Comment: Resuscitation Status: Full Code - Labs CBC & Chem 7: 08/13/19 05:22 08/13/19 05:22 Labs: Laboratory Results - last 24 hr 08/12/19 08/12/19 08/12/19 05:38 09:45 11:49 WBC RBC Hgb Hct MCV MCH MCHC RDW Plt Count MPV Sodium Potassium Chloride Carbon Dioxide BUN Creatinine Est GFR ( Amer) Est GFR (Non-Af Amer) BUN/Creatinine Ratio Glucose POC Glucose 156 H 149 H Est Mean Plasma Glucose Hemoglobin A1c Calculated Osmolality Calcium Fluid Source RUL BAL Fluid Volume 21 Fluid Appearance Cloudy A Fluid RBC TNP Fld Tot Nucleated Cell TNP Fluid Seg Neutrophil % 44.0 Fld Band Neutrophil % 0.0 Fluid Lymphocytes % 18.0 Fluid Monocytes % 1.0 Fluid Eosinophils % 1.0 Fluid Basophils % 0.0 Fluid Other Cells % 36.0 08/12/19 08/12/19 08/12/19 15:48 20:28 20:29 WBC RBC Hgb Hct MCV MCH MCHC RDW Plt Count MPV Sodium Potassium Chloride Carbon Dioxide BUN Creatinine Est GFR ( Amer) Est GFR (Non-Af Amer) BUN/Creatinine Ratio Glucose POC Glucose 269 H 567 H* 555 H* Est Mean Plasma Glucose Hemoglobin A1c Calculated Osmolality Calcium Fluid Source Fluid Volume Fluid Appearance Fluid RBC Fld Tot Nucleated Cell Fluid Seg Neutrophil % Fld Band Neutrophil % Fluid Lymphocytes % Fluid Monocytes % Fluid Eosinophils % Fluid Basophils % Fluid Other Cells % 08/12/19 08/12/19 08/13/19 23:04 23:05 00:08 WBC RBC Hgb Hct MCV MCH MCHC RDW Plt Count MPV Sodium Potassium Chloride Carbon Dioxide BUN Creatinine Est GFR ( Amer) Est GFR (Non-Af Amer) BUN/Creatinine Ratio Glucose POC Glucose 477 H* 509 H* 460 H* Est Mean Plasma Glucose Hemoglobin A1c Calculated Osmolality Calcium Fluid Source Fluid Volume Fluid Appearance Fluid RBC Fld Tot Nucleated Cell Fluid Seg Neutrophil % Fld Band Neutrophil % Fluid Lymphocytes % Fluid Monocytes % Fluid Eosinophils % Fluid Basophils % Fluid Other Cells % 08/13/19 08/13/19 08/13/19 00:09 01:55 03:20 WBC RBC Hgb Hct MCV MCH MCHC RDW Plt Count MPV Sodium Potassium Chloride Carbon Dioxide BUN Creatinine Est GFR ( Amer) Est GFR (Non-Af Amer) BUN/Creatinine Ratio Glucose POC Glucose 452 H* 350 H 255 H Est Mean Plasma Glucose Hemoglobin A1c Calculated Osmolality Calcium Fluid Source Fluid Volume Fluid Appearance Fluid RBC Fld Tot Nucleated Cell Fluid Seg Neutrophil % Fld Band Neutrophil % Fluid Lymphocytes % Fluid Monocytes % Fluid Eosinophils % Fluid Basophils % Fluid Other Cells % 08/13/19 08/13/19 08/13/19 05:22 05:22 05:22 WBC 10.5 RBC 3.19 L Hgb 9.1 L D Hct 30.0 L MCV 94.0 MCH 28.5 MCHC 30.3 L RDW 18.2 H Plt Count 216 MPV 9.8 Sodium 141 Potassium 3.6 Chloride 103 Carbon Dioxide 30 H BUN 23 Creatinine 0.67 Est GFR ( Amer) > 60 Est GFR (Non-Af Amer) > 60 BUN/Creatinine Ratio 34 H Glucose 132 H POC Glucose Est Mean Plasma Glucose 128 Hemoglobin A1c 6.1 H Calculated Osmolality 298 Calcium 9.2 Fluid Source Fluid Volume Fluid Appearance Fluid RBC Fld Tot Nucleated Cell Fluid Seg Neutrophil % Fld Band Neutrophil % Fluid Lymphocytes % Fluid Monocytes % Fluid Eosinophils % Fluid Basophils % Fluid Other Cells % - ABG Interpretation ABG results: PT/INR, D-dimer PT 15.8 Seconds (9.4-12.1) H 08/12/19 03:00 Consult Discharge Plan - Plan Instructions: Acute Hematuria (DC), Dyspnea (GEN) Referrals: Maddie Morton [Primary Care Provider] - 08/20/19 12:30 pm (apt made on 08/13/2019.) Dao Watson MD [Partnered Physician] - (web request made on 08/13/2019. Facility will get in contact with patient and set up an apt. ) Ruthie Watson DO [Non-Partnered Physician] - Salo Arevalo MD [Partnered Physician] - 08/21/19 11:00 am (Apt made on 08/13/2019.) Prescriptions: Metoprolol XL (24 HR) Succ [Toprol Xl] 75 mg PO BID #90 [id number] Prescription Printed
[2019-08-13] MEDS ORDERED: Cholecalciferol (D-3) 1,000 UNIT (25MCG) TABLET PO SCH (19:28)
== END 2019-08-13 11:36 | disposition home health service (06) | DRG 291 ==
LOC: EMEROOARM 13:09 → 2ANU 13:09 → SUATTDRO 17:56 → 2ANU 18:40
PROVIDERS: ADMIT Internal Medicine; ATTEND Internal Medicine

== ENCOUNTER 2019-08-28 15:29 | Inpatient (IN) ==
[2019-08-28] MEDS ORDERED: methylPREDNISolone 125 MG/2 ML VIAL IVP ONE (15:38)
[2019-08-28] MEDS ORDERED: Azithromycin 500 MG in 0.9 % Sodium Chloride 250 ML IVPB ONE (15:38)
[2019-08-28] MEDS ORDERED: Ipratropium/Albuterol Neb 3 ML IH ONE (15:38)
[2019-08-28 16:13] LABS: Basophils % 0.2 %; Eosinophils # 0.1 K/mcL (0.0-0.6); Eosinophils % 1.5 %; Hematocrit 37.4 % (35.3-44.9); Hemoglobin 11.2 g/dL (11.5-15.4); Immature Granulocytes % 0.2 % (0-4); Lymphocytes # 1.4 K/mcL (0.6-4.6); Lymphocytes % 16.2 %; Mean Corpuscular HGB Conc 29.9 g/dL (31.6-35.5); Mean Corpuscular Hemoglobin 27.5 pg (28.0-33.3); Mean Corpuscular Volume 91.7 fL (83.0-100.0); Mean Platelet Volume 9.8 fL (9.4-12.4); Monocytes # 0.5 K/mcL (0.0-1.3); Monocytes % 6.2 %; Neutrophils # 6.5 K/mcL (1.6-8.9); Platelet Count 314 K/mcL (140-400); Red Blood Count 4.08 M/mcL (3.82-4.97); Red Cell Distribution Width 18.1 % (11.5-14.5); Segmented Neutrophils % 75.7 %; White Blood Count 8.7 K/mcL (4.3-11.1)
[2019-08-28 16:35] LABS: BUN/Creatinine Ratio 21 (6-26); Blood Urea Nitrogen 18 mg/dL (8-23); Calcium 9.8 mg/dL (8.6-10.3); Carbon Dioxide 26 mEq/L (23-29); Chloride 104 mEq/L (98-107); Glucose 116 mg/dL (70-105); Osmolality,Calculated 291 (280-300); Potassium 4.1 mEq/L (3.5-5.1); Sodium 139 mEq/L (136-145); Troponin I 0.03 ng/mL (< 0.04); eGFR For African Americans > 60 (> 60); eGFR For Non-African Americans > 60 (> 60)
[2019-08-28] MEDS ORDERED: Naloxone 0.4 MG/ML INJ IVP PRN (18:04)
[2019-08-28] MEDS ORDERED: Ipratropium/Albuterol Neb 3 ML IH PRN (18:11)
[2019-08-28] MEDS ORDERED: Isovue-370 500 ML BOTTLE IVP ONE (19:54)
[2019-08-28] MEDS: Furosemide 40 MG/4 ML VIAL IVP SCH (21:43)
[2019-08-28] MEDS: Ranolazine 500 MG TAB.ER.12H PO SCH (21:43)
[2019-08-28] MEDS: Apixaban 5 MG TABLET PO SCH (21:43)
[2019-08-28] MEDS: Metoprolol XL (24 HR) Succ 50 MG TAB.ER.24H PO SCH (21:44)
[2019-08-28] MEDS: Gabapentin 300 MG CAPSULE PO SCH (21:44)
[2019-08-28] MEDS: Ipratropium/Albuterol Neb 3 ML IH SCH (22:27)
[2019-08-28 23:57] LABS: Adenovirus Not Detected (Not Detect); Bordetella Pertussis Not Detected (Not Detect); Chlamydophila pneumoniae Not Detected (Not Detect); Coronavirus 229E Not Detected (Not Detect); Coronavirus HKU1 Not Detected (Not Detect); Coronavirus NL63 Not Detected (Not Detect); Coronavirus OC43 Not Detected (Not Detect); Human Metapneumovirus Not Detected (Not Detect); Human Rhinovirus/Enterovirus Not Detected (Not Detect); Influenza A Subtype 2009 H1 Not Detected (Not Detect); Influenza A Untypeable Not Detected (Not Detect); Influenza B Not Detected (Not Detect); Mycoplasma pneumoniae Not Detected (Not Detect); Parainfluenza Virus 1 Not Detected (Not Detect); Parainfluenza Virus 2 Not Detected (Not Detect); Parainfluenza Virus 3 Not Detected (Not Detect); Parainfluenza Virus 4 Not Detected (Not Detect); Respiratory Syncytial Virus Not Detected (Not Detect)
[2019-08-29] MEDS: Ipratropium/Albuterol Neb 3 ML IH SCH ×4 (04:06→21:30)
[2019-08-29 04:42] LABS: Eosinophils % 0.2 %; Hematocrit 37.1 % (35.3-44.9); Hemoglobin 11.6 g/dL (11.5-15.4); Immature Granulocytes % 0.3 % (0-4); Lymphocytes # 0.7 K/mcL (0.6-4.6); Lymphocytes % 12.6 %; Mean Corpuscular HGB Conc 31.3 g/dL (31.6-35.5); Mean Corpuscular Hemoglobin 28.1 pg (28.0-33.3); Mean Corpuscular Volume 89.8 fL (83.0-100.0); Mean Platelet Volume 9.3 fL (9.4-12.4); Monocytes # 0.3 K/mcL (0.0-1.3); Monocytes % 4.9 %; Neutrophils # 4.8 K/mcL (1.6-8.9); Platelet Count 277 K/mcL (140-400); Red Blood Count 4.13 M/mcL (3.82-4.97); Red Cell Distribution Width 18.3 % (11.5-14.5); White Blood Count 5.9 K/mcL (4.3-11.1)
[2019-08-29 04:55] LABS: BUN/Creatinine Ratio 25 (6-26); Blood Urea Nitrogen 22 mg/dL (8-23); Carbon Dioxide 29 mEq/L (23-29); Chloride 101 mEq/L (98-107); Glucose 149 mg/dL (70-105); Magnesium 1.6 mg/dL (1.6-2.6); Osmolality,Calculated 300 (280-300); Potassium 3.8 mEq/L (3.5-5.1); Sodium 142 mEq/L (136-145); eGFR For African Americans > 60 (> 60); eGFR For Non-African Americans > 60 (> 60)
[2019-08-29] MEDS ORDERED: Albuterol 2.5 MG/3 ML NEBULIZER IH PRN (08:21)
[2019-08-29] MEDS ORDERED: NON-FORMULARY MEDICATION 1 EACH EACH (Fluticasone/Vilanterol [Breo Ellipta 200-25 Mcg Inh] IH SCH (09:00)
[2019-08-29] MEDS ORDERED: Aspirin 81 MG TAB.CHEW PO SCH (09:00)
[2019-08-29] MEDS: Gabapentin 300 MG CAPSULE PO SCH ×3 (09:40→20:48)
[2019-08-29] MEDS: Metoprolol XL (24 HR) Succ 50 MG TAB.ER.24H PO SCH ×2 (09:40→20:48)
[2019-08-29] MEDS: Ranolazine 500 MG TAB.ER.12H PO SCH ×2 (09:40→20:48)
[2019-08-29] MEDS: Apixaban 5 MG TABLET PO SCH (09:40)
[2019-08-29] MEDS: Furosemide 40 MG/4 ML VIAL IVP SCH ×2 (09:41→17:20)
[2019-08-29] MEDS ORDERED: Budesonide/Formoterol 160/4.5 1 PUFF INH IH SCH (10:00)
[2019-08-29] MEDS: Budesonide/Formoterol 160/4.5 1 PUFF INH IH SCH ×2 (10:11→21:30)
[2019-08-29] MEDS ORDERED: D5% in Water 1,000 ML IVC PRN (11:46)
[2019-08-29] MEDS ORDERED: Dextrose Gel 15 GM/37.5 ML TUBE PO PRN ×2 (11:46)
[2019-08-29] MEDS ORDERED: *HR* Dextrose 50 % in Water (Syg) 50 ML SYRINGE IVP PRN (11:46)
[2019-08-29] MEDS: clonazePAM 1 MG TABLET PO PRN ×2 (14:56→20:47)
[2019-08-29] MEDS: Insulin LISPRO 300 UNITS/3 ML VIAL SQ SCH (16:53)
[2019-08-30] MEDS: Ipratropium/Albuterol Neb 3 ML IH SCH ×4 (04:01→22:11)
[2019-08-30 05:00] LABS: BUN/Creatinine Ratio 38 (6-26); Blood Urea Nitrogen 34 mg/dL (8-23); Calcium 9.8 mg/dL (8.6-10.3); Carbon Dioxide 32 mEq/L (23-29); Chloride 104 mEq/L (98-107); Glucose 125 mg/dL (70-105); Osmolality,Calculated 299 (280-300); Potassium 3.7 mEq/L (3.5-5.1); Sodium 140 mEq/L (136-145); eGFR For African Americans > 60 (> 60); eGFR For Non-African Americans > 60 (> 60)
[2019-08-30] MEDS: Insulin LISPRO 300 UNITS/3 ML VIAL SQ SCH ×3 (08:11→16:10)
[2019-08-30] MEDS: Metoprolol XL (24 HR) Succ 50 MG TAB.ER.24H PO SCH ×2 (08:57→21:46)
[2019-08-30] MEDS: Ranolazine 500 MG TAB.ER.12H PO SCH ×2 (09:02→21:43)
[2019-08-30] MEDS: Furosemide 40 MG/4 ML VIAL IVP SCH ×2 (09:03→16:37)
[2019-08-30] MEDS: Gabapentin 300 MG CAPSULE PO SCH ×3 (09:03→21:44)
[2019-08-30] MEDS: clonazePAM 1 MG TABLET PO PRN ×2 (09:11→21:43)
[2019-08-30] MEDS: Budesonide/Formoterol 160/4.5 1 PUFF INH IH SCH ×2 (10:08→22:11)
[2019-08-30 16:42] LABS: LDH,Pleural Fluid 63 Units/L (No Ref Range); Total Protein,Pleural Fluid < 3.0 g/dL
[2019-08-31] MEDS: Ipratropium/Albuterol Neb 3 ML IH SCH ×2 (04:01→09:46)
[2019-08-31 05:28] LABS: BUN/Creatinine Ratio 34 (6-26); Blood Urea Nitrogen 29 mg/dL (8-23); Calcium 8.7 mg/dL (8.6-10.3); Carbon Dioxide 33 mEq/L (23-29); Chloride 100 mEq/L (98-107); Glucose 131 mg/dL (70-105); Osmolality,Calculated 294 (280-300); Potassium 3.5 mEq/L (3.5-5.1); Sodium 138 mEq/L (136-145); eGFR For African Americans > 60 (> 60); eGFR For Non-African Americans > 60 (> 60)
[2019-08-31] MEDS: Insulin LISPRO 300 UNITS/3 ML VIAL SQ SCH ×2 (07:38→12:07)
[2019-08-31] MEDS: Furosemide 40 MG/4 ML VIAL IVP SCH (09:12)
[2019-08-31] MEDS: Ranolazine 500 MG TAB.ER.12H PO SCH (09:12)
[2019-08-31] MEDS: Metoprolol XL (24 HR) Succ 50 MG TAB.ER.24H PO SCH (09:12)
[2019-08-31] MEDS: Gabapentin 300 MG CAPSULE PO SCH (09:12)
[2019-08-31] MEDS: clonazePAM 1 MG TABLET PO PRN (09:36)
[2019-08-31] MEDS: Budesonide/Formoterol 160/4.5 1 PUFF INH IH SCH (09:46)
[2019-08-31 11:24] VITALS: BP 106/71
[2019-08-31 11:40] LABS: LDH,Pleural Fluid 67 Units/L (No Ref Range); Total Protein,Pleural Fluid < 3.0 g/dL
[2019-09-02 17:50] LABS: Fluid Source for Albumin PLEURAL FLUID
== END 2019-08-31 14:29 | disposition home or self-care (01) | DRG 291 ==
LOC: 2ANU 15:29 → EMEROOARM 15:29 → SUATTDRO 18:07 → 2ANU 19:08
PROVIDERS: ADMIT Internal Medicine; ATTEND Internal Medicine

== ENCOUNTER 2019-10-29 16:47 | Inpatient (IN) ==
[2019-10-29] MEDS ORDERED: Ipratropium/Albuterol Neb 3 ML IH ONE (16:53)
[2019-10-29] MEDS ORDERED: methylPREDNISolone 125 MG/2 ML VIAL IVP ONE (16:53)
[2019-10-29] MEDS ORDERED: Albuterol 2.5 MG/3 ML NEBULIZER IH ONE (16:53)
[2019-10-29 17:18] LABS: INR 5.5; Prothrombin Time 62.1 Seconds (9.4-12.1)
[2019-10-29 17:20] LABS: Basophils % 0.5 %; Eosinophils # 0.2 K/mcL (0.0-0.6); Eosinophils % 1.9 %; Hematocrit 29.7 % (35.3-44.9); Hemoglobin 8.4 g/dL (11.5-15.4); Immature Granulocytes % 0.5 % (0-4); Lymphocytes # 1.6 K/mcL (0.6-4.6); Lymphocytes % 19.3 %; Mean Corpuscular HGB Conc 28.3 g/dL (31.6-35.5); Mean Corpuscular Hemoglobin 24.9 pg (28.0-33.3); Mean Corpuscular Volume 88.1 fL (83.0-100.0); Mean Platelet Volume 10.5 fL (9.4-12.4); Monocytes # 0.8 K/mcL (0.0-1.3); Monocytes % 9.7 %; Neutrophils # 5.7 K/mcL (1.6-8.9); Nucleated Red Blood Cells 0.2 /100 WBC (0); Platelet Count 279 K/mcL (140-400); Red Blood Count 3.37 M/mcL (3.82-4.97); Segmented Neutrophils % 68.1 %; White Blood Count 8.3 K/mcL (4.3-11.1)
[2019-10-29] MEDS ORDERED: 0.9 % Sodium Chloride 1,000 ML IV ONE (17:23)
[2019-10-29] MEDS ORDERED: Piperacillin/Tazobactam 3.375 GM in 0.9 % Sodium Chloride Mini Bag 100 ML IVPB ONE (17:24)
[2019-10-29 17:32] LABS: Albumin 3.4 g/dL (3.5-5.7); Albumin/Globulin Ratio 1.2 (1.1-2.2); Bilirubin,Direct 0.2 mg/dL (0.0-0.2); Bilirubin,Indirect 0.5 mg/dL (0.0-1.0); Bilirubin,Total 0.7 mg/dL (0.3-1.0); Calcium 9.1 mg/dL (8.6-10.3); Globulin 2.9 g/dL (2.4-3.5); Potassium 4.5 mEq/L (3.5-5.1); Total Protein 6.3 g/dL (6.4-8.9); Troponin I 0.04 ng/mL (< 0.04)
[2019-10-29 18:10] LABS: ABG Base Excess 2 mEq/L (-2 to 3); ABG HCO3 28 mEq/L (21-27); ABG Oxygen Saturation 99 % (95-98); ABG PCO2 47 mmHg (35-45); ABG PH 7.38 pH Units (7.32-7.45); ABG PO2 142 mmHg (85-104); ABG TCO2 29 mEq/L (20-26)
[2019-10-29] MEDS ORDERED: Dextrose Gel 15 GM/37.5 ML TUBE PO PRN ×3 (21:13→23:48)
[2019-10-29] MEDS ORDERED: *HR* Dextrose 50 % in Water (Syg) 50 ML SYRINGE IVP PRN (21:13)
[2019-10-29] MEDS ORDERED: Naloxone 0.4 MG/ML INJ IVP PRN (21:13)
[2019-10-29] MEDS ORDERED: D5% in Water 1,000 ML IVC PRN (21:13)
[2019-10-29 22:13] LABS: INR 4.2
[2019-10-29 22:21] LABS: Prothrombin Time 48.1 Seconds (9.4-12.1)
[2019-10-29 22:26] LABS: Bilirubin,Urine Negative (Negative); Blood,Urine Negative (Negative); Clarity,Urine Cloudy (Clear); Color,Urine Dark Yellow (Yellow); Glucose,Urine (UA) Normal (Normal); Ketones,Urine Negative (Negative); Leukocyte Esterase,Urine Moderate (Negative); Nitrite,Urine Positive (Negative); Protein,Urine Trace mg/dL (Neg-Trace); Specific Gravity,Urine 1.024 (1.010-1.025); Urobilinogen,Urine Normal (Normal)
[2019-10-29 22:27] LABS: Bacteria,Urine Moderate per hpf (None-Few); Hyaline Casts,Urine None Seen per lpf (None-Few); RBC,Urine 0-3 per hpf (0-3); Squamous Epithelial Cell,Urine Many per lpf (None-Few); WBC,Urine 15-30 per hpf (0-3)
[2019-10-29] MEDS ORDERED: Azithromycin 500 MG in 0.9 % Sodium Chloride 250 ML IVPB ONE (22:42)
[2019-10-29] MEDS ORDERED: Albuterol 2.5 MG/3 ML NEBULIZER IH PRN (22:42)
[2019-10-29 23:12] LABS: Adenovirus Not Detected (Not Detect); Bordetella Pertussis Not Detected (Not Detect); Chlamydophila pneumoniae Not Detected (Not Detect); Coronavirus 229E Not Detected (Not Detect); Coronavirus HKU1 Not Detected (Not Detect); Coronavirus NL63 Not Detected (Not Detect); Coronavirus OC43 Not Detected (Not Detect); Human Metapneumovirus Not Detected (Not Detect); Human Rhinovirus/Enterovirus Not Detected (Not Detect); Influenza A Subtype 2009 H1 Not Detected (Not Detect); Influenza A Untypeable Not Detected (Not Detect); Influenza B Not Detected (Not Detect); Mycoplasma pneumoniae Not Detected (Not Detect); Parainfluenza Virus 1 Not Detected (Not Detect); Parainfluenza Virus 2 Not Detected (Not Detect); Parainfluenza Virus 3 Not Detected (Not Detect); Parainfluenza Virus 4 Not Detected (Not Detect); Respiratory Syncytial Virus Not Detected (Not Detect)
[2019-10-29] MEDS: MethylPREDNISolone 40 MG/ML VIAL IVP SCH (23:39)
[2019-10-30] MEDS: Ipratropium/Albuterol Neb 3 ML IH SCH ×6 (00:09→20:43)
[2019-10-30 01:04] LABS: Albumin 3.3 g/dL (3.5-5.7); Albumin/Globulin Ratio 1.3 (1.1-2.2); Bilirubin,Total 0.8 mg/dL (0.3-1.0); Globulin 2.6 g/dL (2.4-3.5); Magnesium 1.7 mg/dL (1.6-2.6); Phosphorous 3.6 mg/dL (2.7-4.5); Potassium 4.6 mEq/L (3.5-5.1); Total Protein 5.9 g/dL (6.4-8.9)
[2019-10-30 01:06] LABS: % Iron Saturation 3 % (15-50); Iron 14 mcg/dL (50-170); Transferrin 331 mg/dL (203-362)
[2019-10-30 01:09] LABS: Basophils % 0.1 %; Eosinophils % 0.1 %; Hematocrit 29.5 % (35.3-44.9); Hemoglobin 8.7 g/dL (11.5-15.4); INR 4.1; Immature Granulocytes % 0.6 % (0-4); Lymphocytes # 0.5 K/mcL (0.6-4.6); Lymphocytes % 7.2 %; Mean Corpuscular HGB Conc 29.5 g/dL (31.6-35.5); Mean Corpuscular Hemoglobin 25.6 pg (28.0-33.3); Mean Corpuscular Volume 86.8 fL (83.0-100.0); Mean Platelet Volume 10.6 fL (9.4-12.4); Monocytes # 0.1 K/mcL (0.0-1.3); Monocytes % 1.4 %; Neutrophils # 6.4 K/mcL (1.6-8.9); Nucleated Red Blood Cells 0.4 /100 WBC (0); Platelet Count 277 K/mcL (140-400); Red Cell Distribution Width 19.9 % (11.5-14.5); Segmented Neutrophils % 90.6 %; White Blood Count 7.1 K/mcL (4.3-11.1)
[2019-10-30 01:15] LABS: Prothrombin Time 46.9 Seconds (9.4-12.1)
[2019-10-30 01:24] LABS: Ferritin 41 ng/mL (10-120)
[2019-10-30] MEDS: MethylPREDNISolone 40 MG/ML VIAL IVP SCH (05:39)
[2019-10-30] MEDS: Levothyroxine 25 MCG TABLET PO SCH (05:40)
[2019-10-30] MEDS ORDERED: MethylPREDNISolone 40 MG/ML VIAL IVP SCH ×2 (09:00)
[2019-10-30] MEDS ORDERED: Pantoprazole 40 MG VIAL IVP SCH (09:00)
[2019-10-30] MEDS: Insulin LISPRO 300 UNITS/3 ML VIAL SQ SCH ×3 (09:06→17:13)
[2019-10-30] MEDS: Ranolazine 500 MG TAB.ER.12H PO SCH ×2 (09:08→20:33)
[2019-10-30] MEDS: Metoprolol XL (24 HR) Succ 50 MG TAB.ER.24H PO SCH ×2 (09:08→20:58)
[2019-10-30] MEDS: Isosorbide MONOnitrate (24 HR) 60 MG TAB.ER.24H PO SCH (09:08)
[2019-10-30] MEDS: Furosemide 20 MG/2 ML VIAL IVP SCH ×2 (09:09→21:41)
[2019-10-30] MEDS: clonazePAM 1 MG TABLET PO PRN (17:13)
[2019-10-30] MEDS ORDERED: *HR* HYDROmorphone (PF) 1 MG/ML SYRINGE IVP PRN (18:59)
[2019-10-30] MEDS ORDERED: Acetaminophen 325 MG TABLET PO PRN (19:11)
[2019-10-30] MEDS: *HR* OxyCODONE Immed Rel 5 MG TABLET PO PRN (20:33)
[2019-10-30] MEDS: Apixaban 5 MG TABLET PO SCH (20:36)
[2019-10-30] MEDS ORDERED: Insulin LISPRO 300 UNITS/3 ML VIAL SQ SCH ×2 (21:00)
[2019-10-30] MEDS ORDERED: Azithromycin 500 MG in 0.9 % Sodium Chloride 250 ML IVPB SCH (23:00)
[2019-10-31] MEDS: Ipratropium/Albuterol Neb 3 ML IH SCH ×6 (03:51→20:22)
[2019-10-31 05:54] LABS: Basophils % 0.1 %; Immature Granulocytes % 0.7 % (0-4); Mean Corpuscular Hemoglobin 25.1 pg (28.0-33.3)
[2019-10-31 05:55] LABS: Eosinophils # 0.1 K/mcL (0.0-0.6); Eosinophils % 0.5 %; Hematocrit 28.6 % (35.3-44.9); Hemoglobin 8.5 g/dL (11.5-15.4); Lymphocytes # 1.7 K/mcL (0.6-4.6); Lymphocytes % 12.2 %; Mean Corpuscular HGB Conc 29.7 g/dL (31.6-35.5); Mean Corpuscular Volume 84.4 fL (83.0-100.0); Mean Platelet Volume 10.7 fL (9.4-12.4); Monocytes # 1.5 K/mcL (0.0-1.3); Monocytes % 10.8 %; Neutrophils # 10.4 K/mcL (1.6-8.9); Nucleated Red Blood Cells 0.4 /100 WBC (0); Platelet Count 250 K/mcL (140-400); Red Blood Count 3.39 M/mcL (3.82-4.97); Red Cell Distribution Width 20.2 % (11.5-14.5); Segmented Neutrophils % 75.7 %; White Blood Count 13.7 K/mcL (4.3-11.1)
[2019-10-31 06:18] LABS: BUN/Creatinine Ratio 35 (6-26); Blood Urea Nitrogen 37 mg/dL (8-23); Calcium 8.9 mg/dL (8.6-10.3); Carbon Dioxide 29 mEq/L (23-29); Chloride 105 mEq/L (98-107); Glucose 182 mg/dL (70-105); Magnesium 1.9 mg/dL (1.6-2.6); Osmolality,Calculated 309 (280-300); Potassium 3.7 mEq/L (3.5-5.1); Sodium 143 mEq/L (136-145); eGFR For African Americans > 60 (> 60); eGFR For Non-African Americans 51 (> 60)
[2019-10-31 06:31] LABS: Thyroid Stimulating Hormone 5.832 mcIU/mL (0.340-5.600)
[2019-10-31] MEDS: Levothyroxine 25 MCG TABLET PO SCH (06:32)
[2019-10-31] MEDS ORDERED: *HR* Dextrose 50 % in Water (Syg) 50 ML SYRINGE IVP PRN (07:41)
[2019-10-31] MEDS ORDERED: D5% in Water 1,000 ML IVC PRN (07:41)
[2019-10-31] MEDS ORDERED: Dextrose Gel 15 GM/37.5 ML TUBE PO PRN ×2 (07:41)
[2019-10-31] MEDS: Insulin LISPRO 300 UNITS/3 ML VIAL SQ SCH ×3 (09:00→17:48)
[2019-10-31] MEDS: Insulin DETEMIR 100 UNIT/ML X5UNITS SQ SCH (09:02)
[2019-10-31] MEDS: predniSONE 20 MG TABLET PO SCH (09:04)
[2019-10-31] MEDS: Isosorbide MONOnitrate (24 HR) 60 MG TAB.ER.24H PO SCH (09:04)
[2019-10-31] MEDS: Metoprolol XL (24 HR) Succ 50 MG TAB.ER.24H PO SCH ×2 (09:04→21:49)
[2019-10-31] MEDS: Azithromycin 250 MG TABLET PO SCH (09:06)
[2019-10-31] MEDS: Furosemide 20 MG/2 ML VIAL IVP SCH ×2 (09:06→21:49)
[2019-10-31] MEDS: Apixaban 5 MG TABLET PO SCH ×2 (09:06→21:49)
[2019-10-31] MEDS: Ranolazine 500 MG TAB.ER.12H PO SCH ×2 (09:07→21:49)
[2019-10-31 10:46] LABS: Estimated Average Glucose 146 mg/dl
[2019-10-31] MEDS: cefTRIAXone 1,000 MG in 0.9 % Sodium Chloride Mini Bag 100 ML IVPB SCH (12:01)
[2019-10-31] MEDS: *HR* HYDROcodone/Acet 5/325 mg TABLET PO PRN ×2 (12:12→18:38)
[2019-10-31] MEDS: clonazePAM 1 MG TABLET PO PRN (12:13)
[2019-10-31 18:12] LABS: Amphetamine Screen,Urine Negative ng/mL (Cutoff=1000); Barbiturate Screen,Urine Negative ng/mL (Cutoff=200); Benzodiazepines Screen,Urine Negative ng/mL (Cutoff=200); Cannabinoid Screen,Urine Negative ng/mL (Cutoff = 50); Cocaine Screen,Urine Negative ng/mL (Cutoff= 300); Opiate Screen,Urine Negative ng/mL (Cutoff=300); Phencyclidine Screen,Urine Negative ng/mL (Cutoff=25)
[2019-11-01] MEDS: Ipratropium/Albuterol Neb 3 ML IH SCH ×6 (00:30→20:04)
[2019-11-01] MEDS: clonazePAM 1 MG TABLET PO PRN ×2 (01:19→09:56)
[2019-11-01 04:38] LABS: Basophils % 0.1 %; Eosinophils # 0.1 K/mcL (0.0-0.6); Eosinophils % 0.6 %; Hematocrit 24.1 % (35.3-44.9); Hemoglobin 7.2 g/dL (11.5-15.4); Lymphocytes # 1.3 K/mcL (0.6-4.6); Lymphocytes % 15.9 %; Mean Corpuscular HGB Conc 29.9 g/dL (31.6-35.5); Mean Corpuscular Hemoglobin 24.9 pg (28.0-33.3); Mean Corpuscular Volume 83.4 fL (83.0-100.0); Mean Platelet Volume 9.7 fL (9.4-12.4); Monocytes # 0.8 K/mcL (0.0-1.3); Monocytes % 9.9 %; Neutrophils # 5.9 K/mcL (1.6-8.9); Nucleated Red Blood Cells 0.2 /100 WBC (0); Platelet Count 204 K/mcL (140-400); Red Blood Count 2.89 M/mcL (3.82-4.97); Red Cell Distribution Width 19.7 % (11.5-14.5); Segmented Neutrophils % 72.5 %; White Blood Count 8.1 K/mcL (4.3-11.1)
[2019-11-01 04:57] LABS: BUN/Creatinine Ratio 36 (6-26); Blood Urea Nitrogen 28 mg/dL (8-23); Calcium 8.9 mg/dL (8.6-10.3); Carbon Dioxide 30 mEq/L (23-29); Chloride 105 mEq/L (98-107); Glucose 142 mg/dL (70-105); Magnesium 1.7 mg/dL (1.6-2.6); Osmolality,Calculated 300 (280-300); Potassium 3.6 mEq/L (3.5-5.1); Sodium 141 mEq/L (136-145); eGFR For African Americans > 60 (> 60); eGFR For Non-African Americans > 60 (> 60)
[2019-11-01] MEDS: Furosemide 20 MG/2 ML VIAL IVP SCH ×2 (07:58→20:14)
[2019-11-01] MEDS: Apixaban 5 MG TABLET PO SCH ×2 (07:58→20:14)
[2019-11-01] MEDS: predniSONE 20 MG TABLET PO SCH (07:59)
[2019-11-01] MEDS: cefTRIAXone 1,000 MG in 0.9 % Sodium Chloride Mini Bag 100 ML IVPB SCH (08:00)
[2019-11-01] MEDS: Azithromycin 250 MG TABLET PO SCH (08:00)
[2019-11-01] MEDS: Ranolazine 500 MG TAB.ER.12H PO SCH ×2 (08:00→20:14)
[2019-11-01] MEDS: Metoprolol XL (24 HR) Succ 50 MG TAB.ER.24H PO SCH ×2 (08:01→20:14)
[2019-11-01] MEDS: *HR* HYDROcodone/Acet 5/325 mg TABLET PO PRN (08:01)
[2019-11-01] MEDS: Isosorbide MONOnitrate (24 HR) 60 MG TAB.ER.24H PO SCH (08:01)
[2019-11-01] MEDS: Insulin DETEMIR 100 UNIT/ML X5UNITS SQ SCH (08:02)
[2019-11-01] MEDS: Insulin LISPRO 300 UNITS/3 ML VIAL SQ SCH ×3 (08:03→16:54)
[2019-11-01] MEDS ORDERED: Iron Sucrose Complex 250 MG in 0.9 % Sodium Chloride 250 ML IVPB SCH (09:00)
[2019-11-01] MEDS: Gabapentin 300 MG CAPSULE PO SCH ×3 (09:56→20:14)
[2019-11-01 13:54] LABS: Hematocrit 28.9 % (35.3-44.9); Hemoglobin 8.2 g/dL (11.5-15.4)
[2019-11-01] MEDS: *HR* OxyCODONE Immed Rel 5 MG TABLET PO PRN (20:14)
[2019-11-01 20:16] LABS: Hematocrit 26.7 % (35.3-44.9); Hemoglobin 7.8 g/dL (11.5-15.4)
[2019-11-02] MEDS: Ipratropium/Albuterol Neb 3 ML IH SCH ×6 (00:19→20:23)
[2019-11-02] MEDS: clonazePAM 1 MG TABLET PO PRN ×3 (00:43→21:39)
[2019-11-02 01:36] LABS: Eosinophils % 0.3 %; Hematocrit 26.2 % (35.3-44.9); Hemoglobin 7.9 g/dL (11.5-15.4); Lymphocytes # 1.4 K/mcL (0.6-4.6); Lymphocytes % 14.8 %; Mean Corpuscular HGB Conc 30.2 g/dL (31.6-35.5); Mean Corpuscular Hemoglobin 25.2 pg (28.0-33.3); Mean Corpuscular Volume 83.7 fL (83.0-100.0); Mean Platelet Volume 10.2 fL (9.4-12.4); Monocytes # 1.1 K/mcL (0.0-1.3); Monocytes % 11.4 %; Neutrophils # 6.7 K/mcL (1.6-8.9); Platelet Count 240 K/mcL (140-400); Red Blood Count 3.13 M/mcL (3.82-4.97); Red Cell Distribution Width 19.9 % (11.5-14.5); Segmented Neutrophils % 72.5 %; White Blood Count 9.3 K/mcL (4.3-11.1)
[2019-11-02 03:17] LABS: BUN/Creatinine Ratio 31 (6-26); Blood Urea Nitrogen 31 mg/dL (8-23); Calcium 9.1 mg/dL (8.6-10.3); Carbon Dioxide 30 mEq/L (23-29); Chloride 103 mEq/L (98-107); Glucose 125 mg/dL (70-105); Magnesium 1.7 mg/dL (1.6-2.6); Osmolality,Calculated 298 (280-300); Potassium 3.9 mEq/L (3.5-5.1); Sodium 140 mEq/L (136-145); eGFR For African Americans > 60 (> 60); eGFR For Non-African Americans 54 (> 60)
[2019-11-02] MEDS: Azithromycin 250 MG TABLET PO SCH (08:49)
[2019-11-02] MEDS: Metoprolol XL (24 HR) Succ 50 MG TAB.ER.24H PO SCH ×2 (08:50→21:34)
[2019-11-02] MEDS: Ranolazine 500 MG TAB.ER.12H PO SCH ×2 (08:50→21:33)
[2019-11-02] MEDS: Gabapentin 300 MG CAPSULE PO SCH ×3 (08:50→21:34)
[2019-11-02] MEDS: Isosorbide MONOnitrate (24 HR) 60 MG TAB.ER.24H PO SCH (08:50)
[2019-11-02] MEDS: predniSONE 20 MG TABLET PO SCH (08:50)
[2019-11-02] MEDS: Apixaban 5 MG TABLET PO SCH ×2 (08:50→21:34)
[2019-11-02] MEDS: Furosemide 20 MG/2 ML VIAL IVP SCH ×2 (08:51→21:34)
[2019-11-02] MEDS: cefTRIAXone 1,000 MG in 0.9 % Sodium Chloride Mini Bag 100 ML IVPB SCH (08:51)
[2019-11-02] MEDS: Insulin DETEMIR 100 UNIT/ML X5UNITS SQ SCH (08:54)
[2019-11-02] MEDS: Insulin LISPRO 300 UNITS/3 ML VIAL SQ SCH ×3 (09:08→17:02)
[2019-11-02] MEDS ORDERED: 0.9 % Sodium Chloride 250 ML IVC SCH (13:45)
[2019-11-02] MEDS ORDERED: 0.9 % Sodium Chloride 250 ML ONE (15:41)
[2019-11-02] MEDS: *HR* HYDROcodone/Acet 5/325 mg TABLET PO PRN (18:04)
[2019-11-03] MEDS: Ipratropium/Albuterol Neb 3 ML IH SCH ×3 (00:46→07:17)
[2019-11-03 05:24] LABS: Basophils % 0.4 %; Eosinophils # 0.2 K/mcL (0.0-0.6); Eosinophils % 1.6 %; Hematocrit 34.7 % (35.3-44.9); Immature Granulocytes % 1.9 % (0-4); Lymphocytes # 2.1 K/mcL (0.6-4.6); Lymphocytes % 20.7 %; Mean Corpuscular HGB Conc 30.3 g/dL (31.6-35.5); Mean Corpuscular Hemoglobin 26.1 pg (28.0-33.3); Mean Corpuscular Volume 86.3 fL (83.0-100.0); Mean Platelet Volume 10.5 fL (9.4-12.4); Monocytes # 1.1 K/mcL (0.0-1.3); Monocytes % 10.8 %; Neutrophils # 6.6 K/mcL (1.6-8.9); Nucleated Red Blood Cells 2.7 /100 WBC (0); Platelet Count 266 K/mcL (140-400); Red Blood Count 4.02 M/mcL (3.82-4.97); Red Cell Distribution Width 18.4 % (11.5-14.5); Segmented Neutrophils % 64.6 %; White Blood Count 10.2 K/mcL (4.3-11.1)
[2019-11-03 05:25] LABS: Hemoglobin 10.5 g/dL (11.5-15.4)
[2019-11-03 05:41] LABS: BUN/Creatinine Ratio 39 (6-26); Blood Urea Nitrogen 37 mg/dL (8-23); Calcium 9.6 mg/dL (8.6-10.3); Carbon Dioxide 29 mEq/L (23-29); Chloride 102 mEq/L (98-107); Glucose 145 mg/dL (70-105); Magnesium 1.8 mg/dL (1.6-2.6); Osmolality,Calculated 301 (280-300); Potassium 3.9 mEq/L (3.5-5.1); Sodium 140 mEq/L (136-145); eGFR For African Americans > 60 (> 60); eGFR For Non-African Americans 57 (> 60)
[2019-11-03] MEDS: *HR* OxyCODONE Immed Rel 5 MG TABLET PO PRN (06:13)
[2019-11-03] MEDS: clonazePAM 1 MG TABLET PO PRN (06:17)
[2019-11-03 07:19] VITALS: BP 133/94
[2019-11-03] MEDS: Insulin LISPRO 300 UNITS/3 ML VIAL SQ SCH (08:52)
[2019-11-03] MEDS: predniSONE 20 MG TABLET PO SCH (08:53)
[2019-11-03] MEDS: Apixaban 5 MG TABLET PO SCH (08:53)
[2019-11-03] MEDS: Isosorbide MONOnitrate (24 HR) 60 MG TAB.ER.24H PO SCH (08:53)
[2019-11-03] MEDS: Gabapentin 300 MG CAPSULE PO SCH (08:53)
[2019-11-03] MEDS: Azithromycin 250 MG TABLET PO SCH (08:54)
[2019-11-03] MEDS: Furosemide 20 MG/2 ML VIAL IVP SCH (08:54)
[2019-11-03] MEDS: Metoprolol XL (24 HR) Succ 50 MG TAB.ER.24H PO SCH (08:54)
[2019-11-03] MEDS: Ranolazine 500 MG TAB.ER.12H PO SCH (08:54)
[2019-11-03] MEDS: cefTRIAXone 1,000 MG in 0.9 % Sodium Chloride Mini Bag 100 ML IVPB SCH (08:54)
[2019-11-03] MEDS: Insulin DETEMIR 100 UNIT/ML X5UNITS SQ SCH (09:03)
== END 2019-11-03 11:03 | disposition home health service (06) | DRG 189 ==
LOC: 2NNU 16:47 → EMEROOARM 16:47 → 2NNU 21:10 → SUATTDRO 21:43 → 3ANU 11-01 19:41
PROVIDERS: ADMIT Internal Medicine; ATTEND Pharmacist

== ENCOUNTER 2019-11-13 11:47 | Observation (INO) ==
[2019-11-13 13:15] LABS: ABG Base Excess 2 mEq/L (-2 to 3); ABG HCO3 26 mEq/L (21-27); ABG Oxygen Saturation 96 % (95-98); ABG PCO2 38 mmHg (35-45); ABG PH 7.44 pH Units (7.32-7.45); ABG PO2 78 mmHg (85-104); ABG TCO2 27 mEq/L (20-26)
[2019-11-13] MEDS ORDERED: Ipratropium/Albuterol Neb 3 ML IH ONE (13:15)
[2019-11-13] MEDS ORDERED: Ipratropium/Albuterol Neb 3 ML ONE (13:17)
[2019-11-13 13:26] LABS: Basophils % 0.6 %; Eosinophils # 0.1 K/mcL (0.0-0.6); Eosinophils % 1.8 %; Hematocrit 35.1 % (35.3-44.9); Hemoglobin 10.3 g/dL (11.5-15.4); Lymphocytes # 0.7 K/mcL (0.6-4.6); Lymphocytes % 9.2 %; Mean Corpuscular HGB Conc 29.3 g/dL (31.6-35.5); Mean Corpuscular Volume 88.6 fL (83.0-100.0); Mean Platelet Volume 10.3 fL (9.4-12.4); Monocytes # 0.6 K/mcL (0.0-1.3); Monocytes % 8.3 %; Neutrophils # 5.7 K/mcL (1.6-8.9); Nucleated Red Blood Cells 0.3 /100 WBC (0); Platelet Count 167 K/mcL (140-400); Red Blood Count 3.96 M/mcL (3.82-4.97); Red Cell Distribution Width 22.9 % (11.5-14.5); Segmented Neutrophils % 79.1 %; White Blood Count 7.2 K/mcL (4.3-11.1)
[2019-11-13 13:44] LABS: INR 4.3
[2019-11-13 13:45] LABS: Alanine Aminotransferase 16 Units/L (7-52); Albumin 3.4 g/dL (3.5-5.7); Albumin/Globulin Ratio 1.3 (1.1-2.2); Alkaline Phosphatase 82 Units/L (34-104); Aspartate Amino Transferase 23 Units/L (13-39); BUN/Creatinine Ratio 29 (6-26); Bilirubin,Direct 0.5 mg/dL (0.0-0.2); Bilirubin,Total 1.5 mg/dL (0.3-1.0); Blood Urea Nitrogen 27 mg/dL (8-23); Carbon Dioxide 26 mEq/L (23-29); Chloride 107 mEq/L (98-107); Globulin 2.7 g/dL (2.4-3.5); Glucose 175 mg/dL (70-105); Osmolality,Calculated 303 (280-300); Sodium 142 mEq/L (136-145); Total Protein 6.1 g/dL (6.4-8.9); Troponin I 0.03 ng/mL (< 0.04); eGFR For African Americans > 60 (> 60); eGFR For Non-African Americans 60 (> 60)
[2019-11-13 13:48] LABS: Prothrombin Time 49.4 Seconds (9.4-12.1)
[2019-11-13] MEDS ORDERED: *HR* FentaNYL (PF) 100 MCG/2 ML VIAL IVP ONE (15:09)
[2019-11-13] MEDS ORDERED: Furosemide 40 MG/4 ML VIAL IVP ONE (16:50)
[2019-11-13] MEDS ORDERED: Ondansetron ODT 4 MG TAB.RAPDIS SL PRN (18:07)
[2019-11-13] MEDS ORDERED: Ondansetron 4 MG/2 ML VIAL IVP PRN (18:07)
[2019-11-13] MEDS: Ranolazine 500 MG TAB.ER.12H PO SCH (19:49)
[2019-11-13] MEDS: Ipratropium/Albuterol Neb 3 ML IH SCH ×2 (20:07→23:05)
[2019-11-13] MEDS: clonazePAM 1 MG TABLET PO PRN (22:49)
[2019-11-14 01:28] LABS: Basophils % 0.4 %; Eosinophils # 0.1 K/mcL (0.0-0.6); Eosinophils % 1.9 %; Hematocrit 32.9 % (35.3-44.9); Hemoglobin 9.9 g/dL (11.5-15.4); Immature Granulocytes % 0.6 % (0-4); Lymphocytes # 0.9 K/mcL (0.6-4.6); Lymphocytes % 13.8 %; Mean Corpuscular HGB Conc 30.1 g/dL (31.6-35.5); Mean Corpuscular Hemoglobin 26.3 pg (28.0-33.3); Mean Corpuscular Volume 87.3 fL (83.0-100.0); Mean Platelet Volume 10.8 fL (9.4-12.4); Monocytes # 0.6 K/mcL (0.0-1.3); Monocytes % 9.4 %; Platelet Count 168 K/mcL (140-400); Red Blood Count 3.77 M/mcL (3.82-4.97); Red Cell Distribution Width 22.8 % (11.5-14.5); Segmented Neutrophils % 73.9 %; White Blood Count 6.7 K/mcL (4.3-11.1)
[2019-11-14 01:34] LABS: INR 3.1; Prothrombin Time 34.8 Seconds (9.4-12.1)
[2019-11-14 01:48] LABS: BUN/Creatinine Ratio 28 (6-26); Blood Urea Nitrogen 28 mg/dL (8-23); Calcium 9.2 mg/dL (8.6-10.3); Carbon Dioxide 30 mEq/L (23-29); Chloride 106 mEq/L (98-107); Glucose 135 mg/dL (70-105); Magnesium 1.8 mg/dL (1.6-2.6); Osmolality,Calculated 310 (280-300); Potassium 3.7 mEq/L (3.5-5.1); Sodium 146 mEq/L (136-145); eGFR For African Americans > 60 (> 60); eGFR For Non-African Americans 54 (> 60)
[2019-11-14] MEDS: Ipratropium/Albuterol Neb 3 ML IH SCH ×5 (03:28→20:27)
[2019-11-14] MEDS ORDERED: Furosemide 40 MG/4 ML VIAL IVP SCH ×2 (07:05→09:00)
[2019-11-14] MEDS ORDERED: NON-FORMULARY MEDICATION 1 EACH EACH (Fluticasone/Vilanterol [Breo Ellipta 200-25 Mcg Inh] IH SCH (09:00)
[2019-11-14] MEDS: Aspirin 81 MG TAB.CHEW PO SCH (10:08)
[2019-11-14] MEDS: Ranolazine 500 MG TAB.ER.12H PO SCH ×2 (10:08→21:28)
[2019-11-14] MEDS: clonazePAM 1 MG TABLET PO PRN ×2 (10:08→21:39)
[2019-11-14] MEDS: Furosemide 40 MG/4 ML VIAL IVP SCH ×2 (10:08→16:40)
[2019-11-14] MEDS: Isosorbide MONOnitrate (24 HR) 60 MG TAB.ER.24H PO SCH (10:08)
[2019-11-14 10:39] LABS: Albumin 3.4 g/dL (3.5-5.7); Albumin/Globulin Ratio 1.3 (1.1-2.2); Bilirubin,Direct 0.3 mg/dL (0.0-0.2); Bilirubin,Indirect 0.7 mg/dL (0.0-1.0); Globulin 2.7 g/dL (2.4-3.5); Total Protein 6.1 g/dL (6.4-8.9)
[2019-11-14] MEDS ORDERED: tiZANidine 4 MG TABLET PO PRN (11:16)
[2019-11-14] MEDS ORDERED: Dextrose Gel 15 GM/37.5 ML TUBE PO PRN ×2 (11:18)
[2019-11-14] MEDS ORDERED: *HR* Dextrose 50 % in Water (Syg) 50 ML SYRINGE IVP PRN (11:18)
[2019-11-14] MEDS ORDERED: D5% in Water 1,000 ML IVC PRN (11:18)
[2019-11-14] MEDS: Budesonide/Formoterol 160/4.5 1 PUFF INH IH SCH ×2 (11:32→20:29)
[2019-11-14] MEDS: *HR* HYDROcodone/Acet 5/325 mg TABLET PO PRN ×2 (13:03→21:39)
[2019-11-14] MEDS: Insulin LISPRO 300 UNITS/3 ML VIAL SQ SCH ×2 (13:04→16:30)
[2019-11-14] MEDS: Gabapentin 300 MG CAPSULE PO SCH ×2 (14:24→21:28)
[2019-11-14] MEDS ORDERED: Insulin LISPRO 300 UNITS/3 ML VIAL SQ SCH (21:00)
[2019-11-14] MEDS: Metoprolol XL (24 HR) Succ 50 MG TAB.ER.24H PO SCH (21:28)
[2019-11-15] MEDS: Ipratropium/Albuterol Neb 3 ML IH SCH ×5 (00:02→15:24)
[2019-11-15] MEDS: Budesonide/Formoterol 160/4.5 1 PUFF INH IH SCH (07:56)
[2019-11-15 08:01] LABS: INR 1.8; Prothrombin Time 20.6 Seconds (9.4-12.1)
[2019-11-15 08:03] LABS: Basophils % 0.6 %; Eosinophils # 0.2 K/mcL (0.0-0.6); Eosinophils % 2.5 %; Hematocrit 36.2 % (35.3-44.9); Hemoglobin 10.6 g/dL (11.5-15.4); Immature Granulocytes % 1.1 % (0-4); Lymphocytes # 1.1 K/mcL (0.6-4.6); Lymphocytes % 16.1 %; Mean Corpuscular HGB Conc 29.3 g/dL (31.6-35.5); Mean Corpuscular Hemoglobin 26.2 pg (28.0-33.3); Mean Corpuscular Volume 89.6 fL (83.0-100.0); Mean Platelet Volume 10.4 fL (9.4-12.4); Monocytes # 0.6 K/mcL (0.0-1.3); Monocytes % 9.1 %; Platelet Count 177 K/mcL (140-400); Red Blood Count 4.04 M/mcL (3.82-4.97); Segmented Neutrophils % 70.6 %; White Blood Count 7.1 K/mcL (4.3-11.1)
[2019-11-15 08:21] LABS: BUN/Creatinine Ratio 32 (6-26); Blood Urea Nitrogen 33 mg/dL (8-23); Calcium 9.6 mg/dL (8.6-10.3); Carbon Dioxide 29 mEq/L (23-29); Chloride 104 mEq/L (98-107); Glucose 118 mg/dL (70-105); Magnesium 1.9 mg/dL (1.6-2.6); Osmolality,Calculated 312 (280-300); Sodium 147 mEq/L (136-145); eGFR For African Americans > 60 (> 60); eGFR For Non-African Americans 54 (> 60)
[2019-11-15] MEDS: Insulin LISPRO 300 UNITS/3 ML VIAL SQ SCH ×2 (10:12→12:36)
[2019-11-15] MEDS: Metoprolol XL (24 HR) Succ 50 MG TAB.ER.24H PO SCH (10:34)
[2019-11-15] MEDS: Aspirin 81 MG TAB.CHEW PO SCH (10:35)
[2019-11-15] MEDS: Gabapentin 300 MG CAPSULE PO SCH (10:35)
[2019-11-15] MEDS: Isosorbide MONOnitrate (24 HR) 60 MG TAB.ER.24H PO SCH (10:35)
[2019-11-15] MEDS: Furosemide 40 MG/4 ML VIAL IVP SCH (10:35)
[2019-11-15] MEDS: Ranolazine 500 MG TAB.ER.12H PO SCH (10:41)
[2019-11-15] MEDS: clonazePAM 1 MG TABLET PO PRN (10:44)
[2019-11-15 11:58] LABS: LDH,Pleural Fluid 56 Units/L (No Ref Range); Total Protein,Pleural Fluid < 3.0 g/dL
[2019-11-15 12:27] LABS: RBC,Pleural Fluid 0.003 M/mcL
[2019-11-15 14:09] LABS: Basophils,Pleural Fluid 0 %
[2019-11-15 14:11] LABS: Appearance of Pleural Fl Hazy (Clear)
[2019-11-15 15:24] VITALS: BP 112/70
[2019-11-15] MEDS ORDERED: Apixaban 5 MG TABLET PO SCH (21:00)
== END 2019-11-15 15:40 | disposition home or self-care (01) ==
LOC: 2ANU 11:47 → EMEROOARM 11:47 → SUATTDRO 19:04 → 2ANU 19:32 → UNDODISOB 11-15 13:15
PROVIDERS: ADMIT Internal Medicine; ATTEND Internal Medicine

== ENCOUNTER 2019-12-09 16:28 | Inpatient (IN) ==
[2019-12-09] MEDS ORDERED: Isovue-370 500 ML BOTTLE IVP ONE (16:59)
[2019-12-09 17:11] LABS: Basophils % 0.3 %; Eosinophils % 0.3 %; Hematocrit 32.6 % (35.3-44.9); Hemoglobin 9.2 g/dL (11.5-15.4); Immature Granulocytes % 0.5 % (0-4); Lymphocytes # 0.8 K/mcL (0.6-4.6); Lymphocytes % 7.8 %; Mean Corpuscular HGB Conc 28.2 g/dL (31.6-35.5); Mean Corpuscular Hemoglobin 25.2 pg (28.0-33.3); Mean Corpuscular Volume 89.3 fL (83.0-100.0); Mean Platelet Volume 9.4 fL (9.4-12.4); Monocytes # 0.8 K/mcL (0.0-1.3); Monocytes % 8.7 %; Neutrophils # 7.9 K/mcL (1.6-8.9); Nucleated Red Blood Cells 0.2 /100 WBC (0); Platelet Count 243 K/mcL (140-400); Red Blood Count 3.65 M/mcL (3.82-4.97); Red Cell Distribution Width 21.4 % (11.5-14.5); Segmented Neutrophils % 82.4 %; White Blood Count 9.6 K/mcL (4.3-11.1)
[2019-12-09 17:38] LABS: Calcium 9.8 mg/dL (8.6-10.3); Potassium 4.2 mEq/L (3.5-5.1); Troponin I 0.05 ng/mL (< 0.04)
[2019-12-09 17:52] LABS: INR 6.8; Prothrombin Time 77.3 Seconds (9.4-12.1)
[2019-12-09 17:57] LABS: Albumin 3.5 g/dL (3.5-5.7); Albumin/Globulin Ratio 1.3 (1.1-2.2); Bilirubin,Direct 0.6 mg/dL (0.0-0.2); Bilirubin,Indirect 0.7 mg/dL (0.0-1.0); Bilirubin,Total 1.3 mg/dL (0.3-1.0); Globulin 2.7 g/dL (2.4-3.5); Total Protein 6.2 g/dL (6.4-8.9)
[2019-12-09 18:57] LABS: ABG Base Excess 1 mEq/L (-2 to 3); ABG HCO3 26 mEq/L (21-27); ABG Oxygen Saturation 88 % (95-98); ABG PCO2 43 mmHg (35-45); ABG PO2 54 mmHg (85-104); ABG TCO2 28 mEq/L (20-26)
[2019-12-09] MEDS ORDERED: Piperacillin/Tazobactam 3.375 GM in Water for inj. (sterile) 20 ML IVP ONE (19:16)
[2019-12-09] MEDS ORDERED: Furosemide 40 MG/4 ML VIAL IVP ONE (19:16)
[2019-12-09] MEDS ORDERED: Azithromycin 500 MG in 0.9 % Sodium Chloride 250 ML IVPB ONE (19:16)
[2019-12-09] MEDS ORDERED: Piperacillin/Tazobactam 3.375 GM in 0.9 % Sodium Chloride Mini Bag 100 ML IVPB ONE (19:27)
[2019-12-09] MEDS ORDERED: Naloxone 0.4 MG/ML INJ IVP PRN (21:50)
[2019-12-10] MEDS: Metoprolol XL (24 HR) Succ 50 MG TAB.ER.24H PO SCH ×3 (00:36→22:52)
[2019-12-10 04:50] LABS: Hematocrit 29.9 % (35.3-44.9); Hemoglobin 8.7 g/dL (11.5-15.4); Mean Corpuscular HGB Conc 29.1 g/dL (31.6-35.5); Mean Corpuscular Hemoglobin 24.9 pg (28.0-33.3); Mean Corpuscular Volume 85.7 fL (83.0-100.0); Mean Platelet Volume 9.6 fL (9.4-12.4); Platelet Count 234 K/mcL (140-400); Red Blood Count 3.49 M/mcL (3.82-4.97); Red Cell Distribution Width 21.2 % (11.5-14.5); White Blood Count 11.4 K/mcL (4.3-11.1)
[2019-12-10 04:59] LABS: Prothrombin Time 75.4 Seconds (9.4-12.1)
[2019-12-10 05:00] LABS: INR 6.6
[2019-12-10 05:24] LABS: Calcium 9.4 mg/dL (8.6-10.3); Magnesium 1.9 mg/dL (1.6-2.6); Phosphorous 4.4 mg/dL (2.7-4.5); Potassium 4.5 mEq/L (3.5-5.1); Troponin I 0.07 ng/mL (< 0.04)
[2019-12-10] MEDS ORDERED: Aminoglycoside Consult 1 EACH MC ONE (07:50)
[2019-12-10] MEDS ORDERED: Piperacillin/Tazobactam 3.375 GM in 0.9 % Sodium Chloride Mini Bag 100 ML IVPB SCH (08:00)
[2019-12-10] MEDS: Furosemide 40 MG/4 ML VIAL IVP SCH (08:14)
[2019-12-10] MEDS ORDERED: levoFLOXacin 750 MG/150 ML 750 MG/150 ML BAG IVPB SCH (09:00)
[2019-12-10] MEDS ORDERED: Metoprolol XL (24 HR) Succ 50 MG TAB.ER.24H PO ONE (10:35)
[2019-12-10] MEDS ORDERED: Nitroglycerin 0.4 MG TAB.SUBL SL PRN (11:04)
[2019-12-10] MEDS ORDERED: Ondansetron ODT 4 MG TAB.RAPDIS PO PRN (11:04)
[2019-12-10] MEDS: Aspirin 81 MG TAB.CHEW PO SCH (11:54)
[2019-12-10] MEDS ORDERED: Dextrose Gel 15 GM/37.5 ML TUBE PO PRN ×2 (13:30)
[2019-12-10] MEDS ORDERED: D5% in Water 1,000 ML IVC PRN (13:30)
[2019-12-10] MEDS ORDERED: *HR* Dextrose 50 % in Water (Syg) 50 ML SYRINGE IVP PRN (13:30)
[2019-12-10] MEDS: *HR* HYDROcodone/Acet 5/325 mg TABLET PO PRN ×2 (15:46→22:24)
[2019-12-10 16:03] LABS: ABG Base Excess 5 mEq/L (-2 to 3); ABG HCO3 30 mEq/L (21-27); ABG Oxygen Saturation 93 % (95-98); ABG PCO2 42 mmHg (35-45); ABG PH 7.45 pH Units (7.32-7.45); ABG PO2 66 mmHg (85-104); ABG TCO2 31 mEq/L (20-26)
[2019-12-10] MEDS: clonazePAM 1 MG TABLET PO PRN ×2 (16:20→22:24)
[2019-12-10] MEDS: Insulin LISPRO 300 UNITS/3 ML VIAL SQ SCH (16:25)
[2019-12-10] MEDS: Ranolazine 500 MG TAB.ER.12H PO SCH (22:24)
[2019-12-11 01:57] LABS: INR 3.6
[2019-12-11] MEDS: Insulin LISPRO 300 UNITS/3 ML VIAL SQ SCH ×4 (08:47→22:29)
[2019-12-11] MEDS: Metoprolol XL (24 HR) Succ 50 MG TAB.ER.24H PO SCH ×2 (08:55→21:36)
[2019-12-11] MEDS: Aspirin 81 MG TAB.CHEW PO SCH (08:55)
[2019-12-11] MEDS: Ranolazine 500 MG TAB.ER.12H PO SCH ×2 (08:56→21:36)
[2019-12-11] MEDS: clonazePAM 1 MG TABLET PO PRN ×2 (08:59→17:25)
[2019-12-11] MEDS ORDERED: Spironolactone 25 MG TABLET PO SCH (09:00)
[2019-12-11] MEDS ORDERED: Isosorbide MONOnitrate (24 HR) 60 MG TAB.ER.24H PO SCH (09:00)
[2019-12-11] MEDS: *HR* HYDROcodone/Acet 5/325 mg TABLET PO PRN ×3 (09:00→21:36)
[2019-12-11 13:13] LABS: Eosinophils % 2.5 %; Mean Corpuscular Hemoglobin 25.4 pg (28.0-33.3); Red Cell Distribution Width 20.9 % (11.5-14.5)
[2019-12-11 13:14] LABS: Basophils % 0.1 %; Eosinophils # 0.2 K/mcL (0.0-0.6); Hematocrit 28.8 % (35.3-44.9); Hemoglobin 8.6 g/dL (11.5-15.4); Immature Granulocytes % 0.6 % (0-4); Lymphocytes # 0.5 K/mcL (0.6-4.6); Lymphocytes % 7.4 %; Mean Corpuscular HGB Conc 29.9 g/dL (31.6-35.5); Mean Corpuscular Volume 85.2 fL (83.0-100.0); Mean Platelet Volume 9.4 fL (9.4-12.4); Monocytes # 0.6 K/mcL (0.0-1.3); Monocytes % 8.9 %; Neutrophils # 5.8 K/mcL (1.6-8.9); Platelet Count 204 K/mcL (140-400); Red Blood Count 3.38 M/mcL (3.82-4.97); Segmented Neutrophils % 80.5 %; White Blood Count 7.2 K/mcL (4.3-11.1)
[2019-12-11] MEDS: Furosemide 40 MG/4 ML VIAL IVP SCH (13:23)
[2019-12-11 13:41] LABS: Anisocytosis 2+ (Not Present); Hypochromasia Present (Not Present); Platelet Estimate Normal (Normal)
[2019-12-12] MEDS: *HR* HYDROcodone/Acet 5/325 mg TABLET PO PRN ×2 (03:28→10:00)
[2019-12-12 03:42] LABS: Basophils % 0.1 %; Hematocrit 27.6 % (35.3-44.9); Red Cell Distribution Width 20.9 % (11.5-14.5)
[2019-12-12 03:43] LABS: Eosinophils # 0.2 K/mcL (0.0-0.6); Eosinophils % 3.2 %; Hemoglobin 8.2 g/dL (11.5-15.4); Immature Granulocytes % 0.7 % (0-4); Lymphocytes # 0.8 K/mcL (0.6-4.6); Lymphocytes % 10.6 %; Mean Corpuscular HGB Conc 29.7 g/dL (31.6-35.5); Mean Corpuscular Hemoglobin 25.2 pg (28.0-33.3); Mean Corpuscular Volume 84.9 fL (83.0-100.0); Mean Platelet Volume 9.5 fL (9.4-12.4); Monocytes # 0.8 K/mcL (0.0-1.3); Neutrophils # 5.4 K/mcL (1.6-8.9); Nucleated Red Blood Cells 0.4 /100 WBC (0); Platelet Count 210 K/mcL (140-400); Red Blood Count 3.25 M/mcL (3.82-4.97); Segmented Neutrophils % 74.4 %; White Blood Count 7.2 K/mcL (4.3-11.1)
[2019-12-12 03:49] LABS: Prothrombin Time 22.7 Seconds (9.4-12.1)
[2019-12-12 03:58] LABS: Estimated Average Glucose 131 mg/dl
[2019-12-12 04:02] LABS: BUN/Creatinine Ratio 24 (6-26); Blood Urea Nitrogen 24 mg/dL (8-23); Calcium 8.7 mg/dL (8.6-10.3); Carbon Dioxide 30 mEq/L (23-29); Chloride 102 mEq/L (98-107); Glucose 205 mg/dL (70-105); Magnesium 1.5 mg/dL (1.6-2.6); Osmolality,Calculated 298 (280-300); Potassium 3.6 mEq/L (3.5-5.1); Sodium 139 mEq/L (136-145); eGFR For African Americans > 60 (> 60); eGFR For Non-African Americans 53 (> 60)
[2019-12-12 04:15] LABS: Thyroid Stimulating Hormone 7.024 mcIU/mL (0.340-5.600)
[2019-12-12 04:46] LABS: Anisocytosis 1+ (Not Present); Hypochromasia Present (Not Present); Platelet Estimate Normal (Normal); Poikilocytosis 1+ (Not Present)
[2019-12-12] MEDS: clonazePAM 1 MG TABLET PO PRN (06:12)
[2019-12-12] MEDS ORDERED: Furosemide 40 MG TABLET PO SCH (09:00)
[2019-12-12] MEDS ORDERED: Ergocalciferol (VIT D2) 50,000 UNIT (1.25MG) CAP PO SCH (09:00)
[2019-12-12] MEDS ORDERED: levoFLOXacin 750 MG/150 ML 750 MG/150 ML BAG IVPB SCH (09:00)
[2019-12-12] MEDS: Metoprolol XL (24 HR) Succ 50 MG TAB.ER.24H PO SCH ×2 (10:00→21:21)
[2019-12-12] MEDS: Aspirin 81 MG TAB.CHEW PO SCH (10:00)
[2019-12-12] MEDS: levoFLOXacin 750 MG TABLET PO SCH (10:00)
[2019-12-12] MEDS: Ranolazine 500 MG TAB.ER.12H PO SCH ×2 (10:00→21:21)
[2019-12-12] MEDS: Insulin LISPRO 300 UNITS/3 ML VIAL SQ SCH ×4 (10:01→21:26)
[2019-12-12 15:30] LABS: VBG HCO3 35 mEq/L (21-27); VBG PCO2 71 mmHg (41-51); VBG PH 7.29 pH Units (7.32-7.42); VBG PO2 71 mmHg (25-50)
[2019-12-12] MEDS: Furosemide 40 MG/4 ML VIAL IVP SCH (17:23)
[2019-12-12 19:52] LABS: ABG Base Excess 6 mEq/L (-2 to 3); ABG HCO3 32 mEq/L (21-27); ABG Oxygen Saturation 95 % (95-98); ABG PCO2 48 mmHg (35-45); ABG PH 7.43 pH Units (7.32-7.45); ABG PO2 76 mmHg (85-104); ABG TCO2 33 mEq/L (20-26)
[2019-12-12] MEDS: Levalbuterol Neb 1.25 MG/3 ML IH SCH ×2 (20:37→23:56)
[2019-12-12] MEDS: Apixaban 5 MG TABLET PO SCH (21:21)
[2019-12-12] MEDS: clonazePAM 0.5 MG TABLET PO PRN (21:23)
[2019-12-13] MEDS: Levalbuterol Neb 1.25 MG/3 ML IH SCH ×6 (02:56→23:06)
[2019-12-13 03:55] LABS: Basophils % 0.2 %; Eosinophils # 0.1 K/mcL (0.0-0.6); Eosinophils % 2.4 %; Hematocrit 26.5 % (35.3-44.9); Hemoglobin 7.7 g/dL (11.5-15.4); Immature Granulocytes % 0.6 % (0-4); Lymphocytes # 0.8 K/mcL (0.6-4.6); Lymphocytes % 13.9 %; Mean Corpuscular HGB Conc 29.1 g/dL (31.6-35.5); Mean Platelet Volume 9.8 fL (9.4-12.4); Monocytes # 0.7 K/mcL (0.0-1.3); Monocytes % 12.8 %; Neutrophils # 3.8 K/mcL (1.6-8.9); Platelet Count 194 K/mcL (140-400); Red Blood Count 3.08 M/mcL (3.82-4.97); Red Cell Distribution Width 20.8 % (11.5-14.5); Segmented Neutrophils % 70.1 %; White Blood Count 5.4 K/mcL (4.3-11.1)
[2019-12-13 03:56] LABS: Prothrombin Time 23.1 Seconds (9.4-12.1)
[2019-12-13 03:59] LABS: BUN/Creatinine Ratio 23 (6-26); Blood Urea Nitrogen 21 mg/dL (8-23); Calcium 8.9 mg/dL (8.6-10.3); Carbon Dioxide 32 mEq/L (23-29); Chloride 100 mEq/L (98-107); Glucose 166 mg/dL (70-105); Magnesium 1.6 mg/dL (1.6-2.6); Osmolality,Calculated 291 (280-300); Potassium 3.8 mEq/L (3.5-5.1); Sodium 137 mEq/L (136-145); eGFR For African Americans > 60 (> 60); eGFR For Non-African Americans > 60 (> 60)
[2019-12-13] MEDS: Insulin LISPRO 300 UNITS/3 ML VIAL SQ SCH ×4 (09:30→20:48)
[2019-12-13] MEDS: Aspirin 81 MG TAB.CHEW PO SCH (09:35)
[2019-12-13] MEDS: Furosemide 40 MG/4 ML VIAL IVP SCH ×2 (09:35→19:33)
[2019-12-13] MEDS: Apixaban 5 MG TABLET PO SCH ×2 (09:36→20:44)
[2019-12-13] MEDS: Ranolazine 500 MG TAB.ER.12H PO SCH ×2 (09:36→20:44)
[2019-12-13] MEDS: Metoprolol XL (24 HR) Succ 50 MG TAB.ER.24H PO SCH ×2 (09:37→20:44)
[2019-12-13] MEDS ORDERED: Furosemide 40 MG/4 ML VIAL IVP SCH (12:00)
[2019-12-13] MEDS ORDERED: 0.9 % Sodium Chloride 250 ML IVC SCH (13:45)
[2019-12-13] MEDS ORDERED: 0.9 % Sodium Chloride 250 ML ONE (16:15)
[2019-12-13] MEDS: clonazePAM 0.5 MG TABLET PO PRN (21:38)
[2019-12-14] MEDS: Levalbuterol Neb 1.25 MG/3 ML IH SCH ×3 (03:58→11:08)
[2019-12-14 04:23] LABS: INR 2.2; Prothrombin Time 24.5 Seconds (9.4-12.1)
[2019-12-14 07:13] VITALS: BP 103/71
[2019-12-14] MEDS: levoFLOXacin 750 MG TABLET PO SCH (08:05)
[2019-12-14] MEDS: Metoprolol XL (24 HR) Succ 50 MG TAB.ER.24H PO SCH (08:06)
[2019-12-14] MEDS: Ranolazine 500 MG TAB.ER.12H PO SCH (08:06)
[2019-12-14] MEDS: Apixaban 5 MG TABLET PO SCH (08:06)
[2019-12-14] MEDS: Insulin LISPRO 300 UNITS/3 ML VIAL SQ SCH ×2 (08:08→11:34)
[2019-12-14] MEDS: Furosemide 40 MG/4 ML VIAL IVP SCH (08:08)
[2019-12-14] MEDS: clonazePAM 0.5 MG TABLET PO PRN (08:13)
[2019-12-14 11:44] LABS: Basophils % 0.5 %; Eosinophils # 0.1 K/mcL (0.0-0.6); Eosinophils % 2.4 %; Hematocrit 31.1 % (35.3-44.9); Immature Granulocytes % 0.3 % (0-4); Lymphocytes # 0.8 K/mcL (0.6-4.6); Lymphocytes % 13.1 %; Mean Corpuscular HGB Conc 30.5 g/dL (31.6-35.5); Mean Corpuscular Hemoglobin 25.9 pg (28.0-33.3); Mean Corpuscular Volume 84.7 fL (83.0-100.0); Mean Platelet Volume 9.3 fL (9.4-12.4); Monocytes # 0.7 K/mcL (0.0-1.3); Monocytes % 11.6 %; Neutrophils # 4.2 K/mcL (1.6-8.9); Platelet Count 167 K/mcL (140-400); Red Blood Count 3.67 M/mcL (3.82-4.97); Red Cell Distribution Width 19.9 % (11.5-14.5); Segmented Neutrophils % 72.1 %; White Blood Count 5.9 K/mcL (4.3-11.1)
[2019-12-14 11:45] LABS: Hemoglobin 9.5 g/dL (11.5-15.4)
[2019-12-14 12:05] LABS: Calcium 9.1 mg/dL (8.6-10.3); Magnesium 1.6 mg/dL (1.6-2.6); Potassium 3.6 mEq/L (3.5-5.1)
== END 2019-12-14 14:48 | disposition home health service (06) | DRG 291 ==
LOC: EMEROOARM 16:28 → 2NENU 16:28 → SUATTDRO 12-10 00:18
PROVIDERS: ADMIT Internal Medicine; ATTEND Pharmacist

== ENCOUNTER 2019-12-21 16:25 | Inpatient (IN) ==
[2019-12-21] MEDS ORDERED: Isovue-370 500 ML BOTTLE IVP ONE (16:33)
[2019-12-21 16:40] LABS: ABG Base Excess 6 mEq/L (-2 to 3); ABG HCO3 32 mEq/L (21-27); ABG Oxygen Saturation 100 % (95-98); ABG PCO2 55 mmHg (35-45); ABG PH 7.38 pH Units (7.32-7.45); ABG PO2 380 mmHg (85-104); ABG TCO2 34 mEq/L (20-26); Blood Gas Modality avaps; Blood Gas VT 500 cc
[2019-12-21 16:47] LABS: White Blood Count 7.7 K/mcL (4.3-11.1)
[2019-12-21 16:48] LABS: Basophils % 0.4 %; Eosinophils # 0.1 K/mcL (0.0-0.6); Eosinophils % 1.6 %; Hematocrit 35.4 % (35.3-44.9); Hemoglobin 10.5 g/dL (11.5-15.4); Immature Granulocytes % 0.6 % (0-4); Lymphocytes # 0.9 K/mcL (0.6-4.6); Mean Corpuscular HGB Conc 29.7 g/dL (31.6-35.5); Mean Corpuscular Hemoglobin 25.2 pg (28.0-33.3); Mean Corpuscular Volume 84.9 fL (83.0-100.0); Mean Platelet Volume 9.5 fL (9.4-12.4); Monocytes # 0.7 K/mcL (0.0-1.3); Monocytes % 9.4 %; Neutrophils # 5.9 K/mcL (1.6-8.9); Platelet Count 258 K/mcL (140-400); Red Blood Count 4.17 M/mcL (3.82-4.97); Red Cell Distribution Width 20.7 % (11.5-14.5)
[2019-12-21 16:55] LABS: INR 4.2
[2019-12-21 16:57] LABS: Activated Partial Thrombo Time 35.2 Seconds (26.0-36.0)
[2019-12-21 17:01] LABS: Prothrombin Time 47.5 Seconds (9.4-12.1)
[2019-12-21 17:07] LABS: Albumin 3.2 g/dL (3.5-5.7); Albumin/Globulin Ratio 1.3 (1.1-2.2); Bilirubin,Direct 0.4 mg/dL (0.0-0.2); Bilirubin,Indirect 0.6 mg/dL (0.0-1.0); Calcium 8.9 mg/dL (8.6-10.3); Globulin 2.5 g/dL (2.4-3.5); Magnesium 2.3 mg/dL (1.6-2.6); Potassium 4.9 mEq/L (3.5-5.1); Total Protein 5.7 g/dL (6.4-8.9); Troponin I 0.03 ng/mL (< 0.04)
[2019-12-21 17:16] LABS: Bilirubin,Urine Small (Negative); Blood,Urine Negative (Negative); Clarity,Urine Clear (Clear); Glucose,Urine (UA) Normal (Normal); Ketones,Urine Trace mg/dL (Negative); Leukocyte Esterase,Urine Small (Negative); Nitrite,Urine Negative (Negative); Protein,Urine Negative (Neg-Trace); Urobilinogen,Urine Normal (Normal)
[2019-12-21 17:18] LABS: Bacteria,Urine None Seen per hpf (None-Few); Hyaline Casts,Urine Few per lpf (None-Few); RBC,Urine 0-3 per hpf (0-3); Squamous Epithelial Cell,Urine Many per lpf (None-Few); WBC,Urine 0-3 per hpf (0-3)
[2019-12-21] MEDS ORDERED: 0.9 % Sodium Chloride 1,000 ML ONE (17:18)
[2019-12-21 17:19] LABS: Thyroid Stimulating Hormone 6.365 mcIU/mL (0.340-5.600)
[2019-12-21 17:19] LABS: Color,Urine Dark-Yellow (Yellow)
[2019-12-21] MEDS ORDERED: 0.9 % Sodium Chloride 500 ML IVC ONE (17:22)
[2019-12-21] MEDS ORDERED: Furosemide 40 MG/4 ML VIAL IVP ONE (18:16)
[2019-12-21] MEDS ORDERED: Azithromycin 500 MG in 0.9 % Sodium Chloride 250 ML IVPB ONE (18:56)
[2019-12-21] MEDS ORDERED: Cefepime HCl 1,000 MG in 0.9 % Sodium Chloride Mini Bag 100 ML IVPB STA (18:56)
[2019-12-21] MEDS ORDERED: Nitroglycerin 0.4 MG TAB.SUBL SL PRN (21:31)
[2019-12-21] MEDS ORDERED: ALPRAZolam 0.5 MG TABLET PO PRN (21:31)
[2019-12-21] MEDS ORDERED: Naloxone 0.4 MG/ML INJ IVP PRN (21:42)
[2019-12-21] MEDS ORDERED: *HR* Metoprolol 5 MG/5 ML VIAL IVP PRN (21:47)
[2019-12-21] MEDS ORDERED: methylPREDNISolone 125 MG/2 ML VIAL IVP STA (21:48)
[2019-12-21] MEDS ORDERED: Albumin 25% 25gram/100mL 25 GM/100 ML IV.SOLN IVPB ONE (21:53)
[2019-12-21] MEDS ORDERED: *HR* Dextrose 50 % in Water (Syg) 50 ML SYRINGE IVP PRN (22:04)
[2019-12-21] MEDS ORDERED: D5% in Water 1,000 ML IVC PRN (22:04)
[2019-12-21] MEDS ORDERED: Dextrose Gel 15 GM/37.5 ML TUBE PO PRN ×2 (22:04)
[2019-12-21] MEDS: Levalbuterol Neb 1.25 MG/3 ML IH SCH ×2 (22:13→23:22)
[2019-12-21] MEDS: Ipratropium Neb 0.5 MG NEBULIZER IH SCH ×2 (22:13→23:22)
[2019-12-22] MEDS: Insulin LISPRO 300 UNITS/3 ML VIAL SQ SCH ×6 (00:30→20:20)
[2019-12-22] MEDS ORDERED: *HR* Phytonadione 10 MG/ML AMPUL SQ ONE (00:32)
[2019-12-22] MEDS ORDERED: Albumin 25% 25gram/100mL 25 GM/100 ML IV.SOLN IVPB STA (01:03)
[2019-12-22] MEDS: Piperacillin/Tazobactam 3.375 GM in 0.9 % Sodium Chloride Mini Bag 100 ML IVPB SCH ×3 (02:23→18:00)
[2019-12-22 02:27] LABS: ABG Base Excess 3 mEq/L (-2 to 3); ABG HCO3 29 mEq/L (21-27); ABG Oxygen Saturation 98 % (95-98); ABG PCO2 52 mmHg (35-45); ABG PH 7.36 pH Units (7.32-7.45); ABG PO2 111 mmHg (85-104); ABG TCO2 31 mEq/L (20-26)
[2019-12-22 03:12] LABS: Basophils % 0.3 %; Red Cell Distribution Width 20.5 % (11.5-14.5)
[2019-12-22 03:14] LABS: Eosinophils # 0.1 K/mcL (0.0-0.6); Eosinophils % 0.8 %; Hematocrit 35.9 % (35.3-44.9); Hemoglobin 10.5 g/dL (11.5-15.4); INR 3.2; Immature Granulocytes % 0.4 % (0-4); Lymphocytes # 0.4 K/mcL (0.6-4.6); Lymphocytes % 4.6 %; Mean Corpuscular HGB Conc 29.2 g/dL (31.6-35.5); Mean Corpuscular Hemoglobin 24.9 pg (28.0-33.3); Mean Corpuscular Volume 85.1 fL (83.0-100.0); Mean Platelet Volume 9.7 fL (9.4-12.4); Monocytes # 0.2 K/mcL (0.0-1.3); Monocytes % 2.7 %; Neutrophils # 8.1 K/mcL (1.6-8.9); Platelet Count 272 K/mcL (140-400); Prothrombin Time 36.5 Seconds (9.4-12.1); Red Blood Count 4.22 M/mcL (3.82-4.97); Segmented Neutrophils % 91.2 %; White Blood Count 8.9 K/mcL (4.3-11.1)
[2019-12-22 03:31] LABS: Magnesium 2.3 mg/dL (1.6-2.6); Phosphorous 5.2 mg/dL (2.7-4.5)
[2019-12-22 03:38] LABS: Anisocytosis 1+ (Not Present)
[2019-12-22 03:39] LABS: Platelet Estimate Normal (Normal); Poikilocytosis 1+ (Not Present)
[2019-12-22] MEDS: Levalbuterol Neb 1.25 MG/3 ML IH SCH ×6 (03:41→23:42)
[2019-12-22] MEDS: Ipratropium Neb 0.5 MG NEBULIZER IH SCH ×6 (03:41→23:42)
[2019-12-22 05:25] LABS: ABG Base Excess 3 mEq/L (-2 to 3); ABG HCO3 29 mEq/L (21-27); ABG Oxygen Saturation 97 % (95-98); ABG PCO2 49 mmHg (35-45); ABG PH 7.38 pH Units (7.32-7.45); ABG PO2 99 mmHg (85-104); ABG TCO2 31 mEq/L (20-26); Blood Gas VT 450 cc
[2019-12-22] MEDS ORDERED: MethylPREDNISolone 40 MG/ML VIAL IVP SCH (06:00)
[2019-12-22] MEDS ORDERED: Furosemide 40 MG/4 ML VIAL IVP SCH (08:00)
[2019-12-22] MEDS ORDERED: Furosemide 40 MG/4 ML VIAL ONE (09:10)
[2019-12-22] MEDS ORDERED: Furosemide 40 MG/4 ML VIAL IVP ONE (09:18)
[2019-12-22] MEDS: Ranolazine 500 MG TAB.ER.12H PO SCH ×2 (09:37→20:19)
[2019-12-22] MEDS: Spironolactone 25 MG TABLET PO SCH (09:37)
[2019-12-22] MEDS: Metoprolol XL (24 HR) Succ 50 MG TAB.ER.24H PO SCH ×2 (09:37→20:19)
[2019-12-22] MEDS: Aspirin 81 MG TAB.CHEW PO SCH (09:37)
[2019-12-22] MEDS: Gabapentin 100 MG CAPSULE PO SCH ×3 (09:37→20:19)
[2019-12-22] MEDS ORDERED: Furosemide 80 MG in 0.9 % Sodium Chloride 50 ML IVPB SCH (11:00)
[2019-12-22 18:06] LABS: ABG Base Excess 3 mEq/L (-2 to 3); ABG HCO3 29 mEq/L (21-27); ABG Oxygen Saturation 95 % (95-98); ABG PCO2 46 mmHg (35-45); ABG PO2 74 mmHg (85-104); ABG TCO2 30 mEq/L (20-26)
[2019-12-22] MEDS: Budesonide/Formoterol 160/4.5 1 PUFF INH IH SCH (20:06)
[2019-12-22] MEDS: MethylPREDNISolone 40 MG/ML VIAL IVP SCH (20:20)
[2019-12-22] MEDS: Furosemide 80 MG in 0.9 % Sodium Chloride 50 ML IV SCH (20:39)
[2019-12-23] MEDS: Insulin LISPRO 300 UNITS/3 ML VIAL SQ SCH ×5 (00:42→16:09)
[2019-12-23] MEDS: Levalbuterol Neb 1.25 MG/3 ML IH SCH ×6 (03:26→23:59)
[2019-12-23] MEDS: Ipratropium Neb 0.5 MG NEBULIZER IH SCH ×6 (03:26→23:59)
[2019-12-23] MEDS ORDERED: Piperacillin/Tazobactam 3.375 GM in 0.9 % Sodium Chloride Mini Bag 100 ML IVPB SCH (04:00)
[2019-12-23 07:36] LABS: Adenovirus Not Detected (Not Detect); Bordetella Pertussis Not Detected (Not Detect); Chlamydophila pneumoniae Not Detected (Not Detect); Coronavirus 229E Not Detected (Not Detect); Coronavirus HKU1 Not Detected (Not Detect); Coronavirus NL63 Not Detected (Not Detect); Coronavirus OC43 Not Detected (Not Detect); Human Metapneumovirus Not Detected (Not Detect); Human Rhinovirus/Enterovirus Not Detected (Not Detect); Influenza A Subtype 2009 H1 Not Detected (Not Detect); Influenza B Not Detected (Not Detect); Mycoplasma pneumoniae Not Detected (Not Detect); Parainfluenza Virus 1 Not Detected (Not Detect); Parainfluenza Virus 2 Not Detected (Not Detect); Parainfluenza Virus 3 Not Detected (Not Detect); Parainfluenza Virus 4 Not Detected (Not Detect); Respiratory Syncytial Virus Not Detected (Not Detect)
[2019-12-23] MEDS ORDERED: Aminoglycoside Consult 1 EACH MC ONE (08:43)
[2019-12-23] MEDS: Aspirin 81 MG TAB.CHEW PO SCH (08:52)
[2019-12-23] MEDS: Spironolactone 25 MG TABLET PO SCH (08:53)
[2019-12-23] MEDS: Gabapentin 100 MG CAPSULE PO SCH ×3 (08:53→22:05)
[2019-12-23] MEDS: Ranolazine 500 MG TAB.ER.12H PO SCH ×2 (08:53→22:04)
[2019-12-23] MEDS: MethylPREDNISolone 40 MG/ML VIAL IVP SCH ×2 (08:57→19:21)
[2019-12-23] MEDS: Metoprolol XL (24 HR) Succ 50 MG TAB.ER.24H PO SCH ×2 (08:59→22:04)
[2019-12-23] MEDS: Furosemide 80 MG in 0.9 % Sodium Chloride 50 ML IV SCH ×2 (09:45→17:20)
[2019-12-23] MEDS: Budesonide/Formoterol 160/4.5 1 PUFF INH IH SCH ×3 (10:18→20:38)
[2019-12-23 13:31] LABS: INR 2.3; Prothrombin Time 25.6 Seconds (9.4-12.1)
[2019-12-23 13:33] LABS: Activated Partial Thrombo Time 28.3 Seconds (26.0-36.0)
[2019-12-23 14:19] LABS: Alanine Aminotransferase 7 Units/L (7-52); Albumin 3.3 g/dL (3.5-5.7); Albumin/Globulin Ratio 1.2 (1.1-2.2); Alkaline Phosphatase 51 Units/L (34-104); BUN/Creatinine Ratio 32 (6-26); Bilirubin,Total 0.9 mg/dL (0.3-1.0); Blood Urea Nitrogen 55 mg/dL (8-23); Carbon Dioxide 27 mEq/L (23-29); Chloride 98 mEq/L (98-107); Globulin 2.8 g/dL (2.4-3.5); Glucose 226 mg/dL (70-105); Magnesium 2.2 mg/dL (1.6-2.6); Osmolality,Calculated 304 (280-300); Potassium 4.5 mEq/L (3.5-5.1); Sodium 136 mEq/L (136-145); Total Protein 6.1 g/dL (6.4-8.9); eGFR For African Americans 35 (> 60); eGFR For Non-African Americans 29 (> 60)
[2019-12-23 14:22] LABS: Basophils % 0.1 %; Hematocrit 34.9 % (35.3-44.9); Hemoglobin 10.6 g/dL (11.5-15.4); Immature Granulocytes % 0.5 % (0-4); Lymphocytes # 0.4 K/mcL (0.6-4.6); Lymphocytes % 3.3 %; Mean Corpuscular HGB Conc 30.4 g/dL (31.6-35.5); Mean Corpuscular Hemoglobin 25.7 pg (28.0-33.3); Mean Corpuscular Volume 84.5 fL (83.0-100.0); Mean Platelet Volume 10.3 fL (9.4-12.4); Monocytes # 0.5 K/mcL (0.0-1.3); Monocytes % 4.2 %; Neutrophils # 10.1 K/mcL (1.6-8.9); Nucleated Red Blood Cells 0.3 /100 WBC (0); Platelet Count 284 K/mcL (140-400); Red Blood Count 4.13 M/mcL (3.82-4.97); Red Cell Distribution Width 20.5 % (11.5-14.5); Segmented Neutrophils % 91.9 %
[2019-12-23] MEDS ORDERED: Furosemide 40 MG/4 ML VIAL IVP SCH (17:00)
[2019-12-23] MEDS ORDERED: D5% in Water 1,000 ML IVC PRN (17:04)
[2019-12-23] MEDS ORDERED: *HR* Dextrose 50 % in Water (Syg) 50 ML SYRINGE IVP PRN (17:04)
[2019-12-23] MEDS ORDERED: *HR* Metoprolol 5 MG/5 ML VIAL IVP PRN (17:04)
[2019-12-23] MEDS ORDERED: Dextrose Gel 15 GM/37.5 ML TUBE PO PRN ×2 (17:04)
[2019-12-23] MEDS ORDERED: Naloxone 0.4 MG/ML INJ IVP PRN (17:04)
[2019-12-23] MEDS ORDERED: Nitroglycerin 0.4 MG TAB.SUBL SL PRN (17:04)
[2019-12-23] MEDS ORDERED: MethylPREDNISolone 40 MG/ML VIAL IVP SCH (18:00)
[2019-12-23] MEDS: ALPRAZolam 0.5 MG TABLET PO PRN (18:13)
[2019-12-23] MEDS ORDERED: Insulin LISPRO 300 UNITS/3 ML VIAL SQ SCH (21:00)
[2019-12-23] MEDS ORDERED: Apixaban 5 MG TABLET PO SCH (21:00)
[2019-12-23] MEDS ORDERED: Acetaminophen 325 MG TABLET PO PRN (21:21)
[2019-12-23] MEDS ORDERED: Budesonide/Formoterol 160/4.5 1 PUFF INH IH SCH ×2 (22:00)
[2019-12-23] MEDS: Apixaban 5 MG TABLET PO SCH (22:04)
[2019-12-24] MEDS: Ipratropium Neb 0.5 MG NEBULIZER IH SCH ×6 (03:22→23:28)
[2019-12-24] MEDS: Levalbuterol Neb 1.25 MG/3 ML IH SCH ×6 (03:22→23:28)
[2019-12-24 06:13] LABS: Nucleated Red Blood Cells 0.2 /100 WBC (0); Red Cell Distribution Width 20.1 % (11.5-14.5)
[2019-12-24 06:14] LABS: Hematocrit 30.1 % (35.3-44.9); Hemoglobin 9.1 g/dL (11.5-15.4); Immature Granulocytes % 0.8 % (0-4); Lymphocytes # 0.3 K/mcL (0.6-4.6); Lymphocytes % 2.4 %; Mean Corpuscular HGB Conc 30.2 g/dL (31.6-35.5); Mean Corpuscular Hemoglobin 25.6 pg (28.0-33.3); Mean Corpuscular Volume 84.6 fL (83.0-100.0); Mean Platelet Volume 10.2 fL (9.4-12.4); Monocytes # 0.7 K/mcL (0.0-1.3); Monocytes % 6.7 %; Neutrophils # 9.7 K/mcL (1.6-8.9); Platelet Count 223 K/mcL (140-400); Red Blood Count 3.56 M/mcL (3.82-4.97); Segmented Neutrophils % 90.1 %; White Blood Count 10.8 K/mcL (4.3-11.1)
[2019-12-24] MEDS: MethylPREDNISolone 40 MG/ML VIAL IVP SCH ×2 (06:18→17:36)
[2019-12-24 06:35] LABS: Albumin 3.1 g/dL (3.5-5.7); Albumin/Globulin Ratio 1.3 (1.1-2.2); Bilirubin,Total 0.7 mg/dL (0.3-1.0); Calcium 8.5 mg/dL (8.6-10.3); Globulin 2.4 g/dL (2.4-3.5); Potassium 3.8 mEq/L (3.5-5.1); Total Protein 5.5 g/dL (6.4-8.9)
[2019-12-24] MEDS ORDERED: *HR* Metoprolol 5 MG/5 ML VIAL IVP PRN (07:16)
[2019-12-24] MEDS: Budesonide/Formoterol 160/4.5 1 PUFF INH IH SCH ×2 (07:18→19:43)
[2019-12-24] MEDS ORDERED: Acetaminophen 325 MG TABLET PO PRN (08:53)
[2019-12-24] MEDS ORDERED: Cholecalciferol (D-3) 1,000 UNIT (25MCG) TABLET PO SCH (09:00)
[2019-12-24] MEDS: Gabapentin 100 MG CAPSULE PO SCH ×3 (09:20→20:05)
[2019-12-24] MEDS: Apixaban 5 MG TABLET PO SCH ×2 (09:20→20:06)
[2019-12-24] MEDS: Furosemide 20 MG TABLET PO SCH (09:20)
[2019-12-24] MEDS: Metoprolol XL (24 HR) Succ 50 MG TAB.ER.24H PO SCH ×2 (09:20→20:05)
[2019-12-24] MEDS: Cholecalciferol (D-3) 1,000 UNIT (25MCG) TABLET PO SCH (09:20)
[2019-12-24] MEDS: Ranolazine 500 MG TAB.ER.12H PO SCH ×2 (09:20→20:05)
[2019-12-24] MEDS: Spironolactone 25 MG TABLET PO SCH (09:21)
[2019-12-24] MEDS: Aspirin 81 MG TAB.CHEW PO SCH (09:22)
[2019-12-24] MEDS: Insulin DETEMIR 100 UNIT/ML X5UNITS SQ SCH ×2 (09:23→21:50)
[2019-12-24] MEDS: Insulin LISPRO 300 UNITS/3 ML VIAL SQ SCH ×6 (09:25→16:40)
[2019-12-24] MEDS: ALPRAZolam 0.5 MG TABLET PO PRN ×2 (09:38→17:41)
[2019-12-24 10:05] LABS: Acinetobacter baumannii by PCR Not Detected (Not Detect); Candida albicans by PCR Not Detected (Not Detect); Candida glabrata by PCR Not Detected (Not Detect); Candida krusei by PCR Not Detected (Not Detect); Candida parapsilosis by PCR Not Detected (Not Detect); Candida tropicalis by PCR Not Detected (Not Detect); Enterobacter cloacae Cmplx PCR Not Detected (Not Detect); Enterobacteriaceae by PCR Not Detected (Not Detect); Enterococcus by PCR Not Detected (Not Detect); Escherichia coli by PCR Not Detected (Not Detect); Klebsiella oxytoca by PCR Not Detected (Not Detect); Klebsiella pneumoniae by PCR Not Detected (Not Detect); Proteus by PCR Not Detected (Not Detect); Pseudomonas aeruginosa by PCR Not Detected (Not Detect); Serratia marcescens by PCR Not Detected (Not Detect); Staphylococcus aureus by PCR Not Detected (Not Detect); Staphylococcus by PCR Not Detected (Not Detect); Streptococcus agalactiae(B)PCR Not Detected (Not Detect); Streptococcus by PCR Not Detected (Not Detect); Streptococcus pneumoniae PCR Not Detected (Not Detect); Streptococcus pyogenes (A) PCR Not Detected (Not Detect)
[2019-12-24] MEDS ORDERED: Insulin LISPRO 300 UNITS/3 ML VIAL SQ SCH (21:00)
[2019-12-25] MEDS: Ipratropium Neb 0.5 MG NEBULIZER IH SCH ×2 (03:13→07:17)
[2019-12-25] MEDS: Levalbuterol Neb 1.25 MG/3 ML IH SCH ×2 (03:13→07:17)
[2019-12-25] MEDS: ALPRAZolam 0.5 MG TABLET PO PRN (03:31)
[2019-12-25 05:29] LABS: Hematocrit 32.1 % (35.3-44.9); Hemoglobin 9.3 g/dL (11.5-15.4); Mean Corpuscular Hemoglobin 25.1 pg (28.0-33.3); Mean Corpuscular Volume 86.8 fL (83.0-100.0); Mean Platelet Volume 9.8 fL (9.4-12.4); Platelet Count 219 K/mcL (140-400); Red Cell Distribution Width 19.9 % (11.5-14.5); White Blood Count 10.8 K/mcL (4.3-11.1)
[2019-12-25 05:49] LABS: Calcium 9.3 mg/dL (8.6-10.3); Potassium 3.7 mEq/L (3.5-5.1)
[2019-12-25] MEDS: Metoprolol XL (24 HR) Succ 50 MG TAB.ER.24H PO SCH (06:06)
[2019-12-25] MEDS: MethylPREDNISolone 40 MG/ML VIAL IVP SCH (06:06)
[2019-12-25 06:58] VITALS: BP 131/90
[2019-12-25] MEDS: Budesonide/Formoterol 160/4.5 1 PUFF INH IH SCH (07:17)
[2019-12-25] MEDS: Cholecalciferol (D-3) 1,000 UNIT (25MCG) TABLET PO SCH (07:43)
[2019-12-25] MEDS: Ranolazine 500 MG TAB.ER.12H PO SCH (07:43)
[2019-12-25] MEDS: Gabapentin 100 MG CAPSULE PO SCH (07:43)
[2019-12-25] MEDS: Apixaban 5 MG TABLET PO SCH (07:43)
[2019-12-25] MEDS: Aspirin 81 MG TAB.CHEW PO SCH (07:43)
[2019-12-25] MEDS: Insulin DETEMIR 100 UNIT/ML X5UNITS SQ SCH (07:44)
[2019-12-25] MEDS: Furosemide 20 MG TABLET PO SCH (07:44)
[2019-12-25] MEDS: Spironolactone 25 MG TABLET PO SCH (07:44)
[2019-12-25] MEDS: Insulin LISPRO 300 UNITS/3 ML VIAL SQ SCH ×2 (07:44→07:45)
[2019-12-26] MEDS ORDERED: Ergocalciferol (VIT D2) 50,000 UNIT (1.25MG) CAP PO SCH (09:00)
== END 2019-12-25 10:35 | disposition home health service (06) | DRG 291 ==
LOC: 2NENU 16:25 → EMEROOARM 16:25 → 2NENU 20:45 → SUATTDRO 20:50 → ICNU 12-22 02:09 → 2ANU 12-23 18:38
PROVIDERS: ADMIT Family Medicine; ATTEND Internal Medicine

== ENCOUNTER 2020-01-01 12:39 | Inpatient (IN) ==
[2020-01-01 14:10] LABS: INR 3.2; Prothrombin Time 36.5 Seconds (9.4-12.1)
[2020-01-01 14:18] LABS: Hematocrit 34.7 % (35.3-44.9); Hemoglobin 9.8 g/dL (11.5-15.4); Mean Corpuscular HGB Conc 28.2 g/dL (31.6-35.5); Mean Corpuscular Hemoglobin 24.8 pg (28.0-33.3); Mean Corpuscular Volume 87.8 fL (83.0-100.0); Mean Platelet Volume 10.1 fL (9.4-12.4); Platelet Count 211 K/mcL (140-400); Red Blood Count 3.95 M/mcL (3.82-4.97); Red Cell Distribution Width 19.7 % (11.5-14.5); White Blood Count 10.4 K/mcL (4.3-11.1)
[2020-01-01 14:31] LABS: Alanine Aminotransferase 19 Units/L (7-52); Albumin 3.3 g/dL (3.5-5.7); Albumin/Globulin Ratio 1.4 (1.1-2.2); Alkaline Phosphatase 86 Units/L (34-104); Aspartate Amino Transferase 22 Units/L (13-39); BUN/Creatinine Ratio 30 (6-26); Bilirubin,Direct 0.4 mg/dL (0.0-0.2); Bilirubin,Indirect 0.6 mg/dL (0.0-1.0); Blood Urea Nitrogen 29 mg/dL (8-23); Calcium 9.1 mg/dL (8.6-10.3); Carbon Dioxide 32 mEq/L (23-29); Chloride 104 mEq/L (98-107); Globulin 2.4 g/dL (2.4-3.5); Glucose 231 mg/dL (70-105); Osmolality,Calculated 305 (280-300); Potassium 4.5 mEq/L (3.5-5.1); Sodium 141 mEq/L (136-145); Total Protein 5.7 g/dL (6.4-8.9); eGFR For African Americans > 60 (> 60); eGFR For Non-African Americans 57 (> 60)
[2020-01-01] MEDS ORDERED: Isovue-370 500 ML BOTTLE IVP ONE (16:57)
[2020-01-01] MEDS ORDERED: 0.9 % Sodium Chloride 500 ML IVC ONE (16:58)
[2020-01-01] MEDS ORDERED: Ondansetron 4 MG/2 ML VIAL IVP PRN (17:45)
[2020-01-01] MEDS ORDERED: Acetaminophen 325 MG TABLET PO PRN (17:45)
[2020-01-01] MEDS ORDERED: Nitroglycerin 0.4 MG TAB.SUBL SL PRN (17:48)
[2020-01-01] MEDS: Metoprolol XL (24 HR) Succ 50 MG TAB.ER.24H PO SCH (20:43)
[2020-01-01] MEDS: Apixaban 5 MG TABLET PO SCH (20:44)
[2020-01-01] MEDS: Gabapentin 300 MG CAPSULE PO SCH (20:44)
[2020-01-01] MEDS: Ranolazine 500 MG TAB.ER.12H PO SCH (20:44)
[2020-01-01] MEDS: ALPRAZolam 0.5 MG TABLET PO PRN (20:44)
[2020-01-01] MEDS: *HR* HYDROcodone/Acet 5/325 mg TABLET PO PRN (20:45)
[2020-01-01] MEDS ORDERED: NON-FORMULARY MEDICATION 1 EACH EACH (Gabapentin [Neurontin] 300 MG) PO SCH (21:00)
[2020-01-01] MEDS ORDERED: Metoprolol XL (24 HR) Succ 50 MG TAB.ER.24H PO SCH (21:00)
[2020-01-01] MEDS: Budesonide/Formoterol 80/4.5 1 PUFF INH IH SCH (22:55)
[2020-01-01] MEDS ORDERED: *HR* Dextrose 50 % in Water (Syg) 50 ML SYRINGE IVP PRN (23:33)
[2020-01-01] MEDS ORDERED: Dextrose Gel 15 GM/37.5 ML TUBE PO PRN ×2 (23:33)
[2020-01-01] MEDS ORDERED: D5% in Water 1,000 ML IVC PRN (23:33)
[2020-01-02] MEDS: Insulin LISPRO 300 UNITS/3 ML VIAL SQ SCH ×5 (00:25→20:56)
[2020-01-02 02:41] LABS: Hemoglobin 9.7 g/dL (11.5-15.4); INR 3.7; Mean Corpuscular HGB Conc 29.4 g/dL (31.6-35.5); Mean Corpuscular Hemoglobin 24.7 pg (28.0-33.3); Mean Platelet Volume 10.3 fL (9.4-12.4); Platelet Count 218 K/mcL (140-400); Red Blood Count 3.93 M/mcL (3.82-4.97); Red Cell Distribution Width 19.9 % (11.5-14.5); White Blood Count 8.7 K/mcL (4.3-11.1)
[2020-01-02 02:49] LABS: BUN/Creatinine Ratio 32 (6-26); Blood Urea Nitrogen 29 mg/dL (8-23); Calcium 9.1 mg/dL (8.6-10.3); Carbon Dioxide 32 mEq/L (23-29); Chloride 105 mEq/L (98-107); Glucose 146 mg/dL (70-105); Magnesium 1.8 mg/dL (1.6-2.6); Osmolality,Calculated 300 (280-300); Potassium 4.5 mEq/L (3.5-5.1); Sodium 141 mEq/L (136-145); eGFR For African Americans > 60 (> 60); eGFR For Non-African Americans > 60 (> 60)
[2020-01-02] MEDS: Ranolazine 500 MG TAB.ER.12H PO SCH ×2 (07:59→20:53)
[2020-01-02] MEDS: Aspirin 81 MG TAB.CHEW PO SCH (07:59)
[2020-01-02] MEDS: Apixaban 5 MG TABLET PO SCH ×2 (08:00→20:54)
[2020-01-02] MEDS: Metoprolol XL (24 HR) Succ 50 MG TAB.ER.24H PO SCH ×2 (08:00→20:54)
[2020-01-02] MEDS: ALPRAZolam 0.5 MG TABLET PO PRN ×2 (08:08→20:53)
[2020-01-02] MEDS ORDERED: NON-FORMULARY MEDICATION 1 EACH EACH (Fluticasone/Vilanterol [Breo Ellipta 200-25 Mcg Inh] IH SCH (09:00)
[2020-01-02] MEDS: Budesonide/Formoterol 80/4.5 1 PUFF INH IH SCH (10:48)
[2020-01-02] MEDS ORDERED: Perflutren Lipid Microsphere 1.3 ML in 0.9 % Sodium Chloride 8.7 ML IVP ONE (10:54)
[2020-01-02] MEDS: Furosemide 40 MG/4 ML VIAL IVP SCH ×2 (14:14→16:06)
[2020-01-02] MEDS: Levalbuterol Neb 0.63 MG/3 ML IH PRN (20:16)
[2020-01-02] MEDS: Budesonide/Formoterol 160/4.5 1 PUFF INH IH SCH (20:16)
[2020-01-02] MEDS: *HR* HYDROcodone/Acet 5/325 mg TABLET PO PRN (20:53)
[2020-01-02] MEDS: Gabapentin 300 MG CAPSULE PO SCH (20:54)
[2020-01-03 01:28] LABS: Hematocrit 30.5 % (35.3-44.9); Mean Corpuscular HGB Conc 29.5 g/dL (31.6-35.5); Mean Corpuscular Hemoglobin 24.8 pg (28.0-33.3); Mean Platelet Volume 10.1 fL (9.4-12.4); Platelet Count 204 K/mcL (140-400); Red Blood Count 3.63 M/mcL (3.82-4.97); Red Cell Distribution Width 20.3 % (11.5-14.5); White Blood Count 9.3 K/mcL (4.3-11.1)
[2020-01-03 01:33] LABS: VBG HCO3 32 mEq/L (21-27); VBG PCO2 51 mmHg (41-51); VBG PH 7.41 pH Units (7.32-7.42); VBG PO2 136 mmHg (25-50)
[2020-01-03 01:51] LABS: Albumin/Globulin Ratio 1.3 (1.1-2.2); Bilirubin,Direct 0.4 mg/dL (0.0-0.2); Bilirubin,Indirect 0.4 mg/dL (0.0-1.0); Bilirubin,Total 0.8 mg/dL (0.3-1.0); Calcium 8.8 mg/dL (8.6-10.3); Globulin 2.3 g/dL (2.4-3.5); Magnesium 1.6 mg/dL (1.6-2.6); Potassium 3.9 mEq/L (3.5-5.1); Total Protein 5.3 g/dL (6.4-8.9)
[2020-01-03] MEDS: Levalbuterol Neb 0.63 MG/3 ML IH PRN (07:13)
[2020-01-03] MEDS: Budesonide/Formoterol 160/4.5 1 PUFF INH IH SCH ×2 (07:13→19:45)
[2020-01-03] MEDS: Insulin LISPRO 300 UNITS/3 ML VIAL SQ SCH ×4 (08:08→22:28)
[2020-01-03] MEDS: *HR* HYDROcodone/Acet 5/325 mg TABLET PO PRN ×2 (09:08→17:18)
[2020-01-03] MEDS: ALPRAZolam 0.5 MG TABLET PO PRN ×2 (09:10→17:18)
[2020-01-03] MEDS: Furosemide 40 MG/4 ML VIAL IVP SCH ×2 (10:30→17:18)
[2020-01-03] MEDS: Aspirin 81 MG TAB.CHEW PO SCH (10:30)
[2020-01-03] MEDS: Ranolazine 500 MG TAB.ER.12H PO SCH ×2 (10:30→22:25)
[2020-01-03] MEDS: Metoprolol XL (24 HR) Succ 50 MG TAB.ER.24H PO SCH ×2 (10:31→22:27)
[2020-01-03] MEDS: Apixaban 5 MG TABLET PO SCH ×2 (10:31→22:27)
[2020-01-03] MEDS: Gabapentin 300 MG CAPSULE PO SCH (22:26)
[2020-01-04 04:51] LABS: Red Cell Distribution Width 20.6 % (11.5-14.5)
[2020-01-04 04:52] LABS: Hematocrit 32.6 % (35.3-44.9); Hemoglobin 9.6 g/dL (11.5-15.4); Mean Corpuscular HGB Conc 29.4 g/dL (31.6-35.5); Mean Corpuscular Hemoglobin 24.6 pg (28.0-33.3); Mean Corpuscular Volume 83.4 fL (83.0-100.0); Mean Platelet Volume 9.6 fL (9.4-12.4); Platelet Count 164 K/mcL (140-400); Red Blood Count 3.91 M/mcL (3.82-4.97); White Blood Count 7.2 K/mcL (4.3-11.1)
[2020-01-04 05:12] LABS: BUN/Creatinine Ratio 27 (6-26); Blood Urea Nitrogen 27 mg/dL (8-23); Calcium 8.9 mg/dL (8.6-10.3); Carbon Dioxide 34 mEq/L (23-29); Chloride 103 mEq/L (98-107); Glucose 107 mg/dL (70-105); Magnesium 1.7 mg/dL (1.6-2.6); Osmolality,Calculated 302 (280-300); Potassium 3.9 mEq/L (3.5-5.1); Sodium 143 mEq/L (136-145); eGFR For African Americans > 60 (> 60); eGFR For Non-African Americans 55 (> 60)
[2020-01-04] MEDS: Budesonide/Formoterol 160/4.5 1 PUFF INH IH SCH ×2 (07:27→20:07)
[2020-01-04] MEDS: Metoprolol XL (24 HR) Succ 50 MG TAB.ER.24H PO SCH ×2 (07:58→20:53)
[2020-01-04] MEDS: Apixaban 5 MG TABLET PO SCH ×2 (07:58→20:53)
[2020-01-04] MEDS: Ranolazine 500 MG TAB.ER.12H PO SCH ×2 (07:58→20:53)
[2020-01-04] MEDS: Furosemide 40 MG/4 ML VIAL IVP SCH ×2 (07:58→16:57)
[2020-01-04] MEDS: Aspirin 81 MG TAB.CHEW PO SCH (07:59)
[2020-01-04] MEDS: Insulin LISPRO 300 UNITS/3 ML VIAL SQ SCH ×4 (08:00→21:30)
[2020-01-04] MEDS: *HR* HYDROcodone/Acet 5/325 mg TABLET PO PRN ×3 (09:11→20:53)
[2020-01-04] MEDS: ALPRAZolam 0.5 MG TABLET PO PRN ×2 (09:11→20:52)
[2020-01-04] MEDS: Gabapentin 300 MG CAPSULE PO SCH (20:53)
[2020-01-05] MEDS: Levalbuterol Neb 0.63 MG/3 ML IH PRN ×4 (00:20→16:05)
[2020-01-05 08:01] LABS: BUN/Creatinine Ratio 28 (6-26); Blood Urea Nitrogen 25 mg/dL (8-23); Calcium 8.7 mg/dL (8.6-10.3); Carbon Dioxide 34 mEq/L (23-29); Chloride 101 mEq/L (98-107); Glucose 167 mg/dL (70-105); Osmolality,Calculated 300 (280-300); Potassium 3.6 mEq/L (3.5-5.1); Sodium 141 mEq/L (136-145); eGFR For African Americans > 60 (> 60); eGFR For Non-African Americans > 60 (> 60)
[2020-01-05] MEDS: Apixaban 5 MG TABLET PO SCH ×2 (08:37→20:56)
[2020-01-05] MEDS: Metoprolol XL (24 HR) Succ 50 MG TAB.ER.24H PO SCH ×2 (08:37→20:56)
[2020-01-05] MEDS: Furosemide 40 MG/4 ML VIAL IVP SCH ×2 (08:38→15:57)
[2020-01-05] MEDS: Ranolazine 500 MG TAB.ER.12H PO SCH ×2 (08:38→20:59)
[2020-01-05] MEDS: *HR* HYDROcodone/Acet 5/325 mg TABLET PO PRN (08:39)
[2020-01-05] MEDS: Insulin LISPRO 300 UNITS/3 ML VIAL SQ SCH ×4 (08:39→21:03)
[2020-01-05] MEDS: Aspirin 81 MG TAB.CHEW PO SCH (08:40)
[2020-01-05] MEDS: ALPRAZolam 0.5 MG TABLET PO PRN ×2 (08:43→20:56)
[2020-01-05] MEDS: Budesonide/Formoterol 160/4.5 1 PUFF INH IH SCH ×2 (10:31→20:59)
[2020-01-05] MEDS: Gabapentin 300 MG CAPSULE PO SCH (20:56)
[2020-01-05] MEDS: Levalbuterol Neb 0.63 MG/3 ML IH SCH (20:59)
[2020-01-06] MEDS: *HR* HYDROcodone/Acet 5/325 mg TABLET PO PRN ×2 (00:48→17:40)
[2020-01-06] MEDS: Levalbuterol Neb 0.63 MG/3 ML IH SCH ×4 (04:13→21:39)
[2020-01-06 05:39] LABS: BUN/Creatinine Ratio 30 (6-26); Blood Urea Nitrogen 24 mg/dL (8-23); Calcium 8.4 mg/dL (8.6-10.3); Carbon Dioxide 35 mEq/L (23-29); Chloride 101 mEq/L (98-107); Glucose 107 mg/dL (70-105); Osmolality,Calculated 299 (280-300); Potassium 3.4 mEq/L (3.5-5.1); Sodium 142 mEq/L (136-145); eGFR For African Americans > 60 (> 60); eGFR For Non-African Americans > 60 (> 60)
[2020-01-06] MEDS: Insulin LISPRO 300 UNITS/3 ML VIAL SQ SCH ×4 (09:34→20:09)
[2020-01-06] MEDS: Metoprolol XL (24 HR) Succ 50 MG TAB.ER.24H PO SCH ×2 (09:40→20:02)
[2020-01-06] MEDS: Apixaban 5 MG TABLET PO SCH ×2 (09:40→20:02)
[2020-01-06] MEDS: Ranolazine 500 MG TAB.ER.12H PO SCH ×2 (09:40→20:02)
[2020-01-06] MEDS: Furosemide 40 MG/4 ML VIAL IVP SCH ×3 (09:41→17:36)
[2020-01-06] MEDS: Aspirin 81 MG TAB.CHEW PO SCH (09:41)
[2020-01-06] MEDS: Budesonide/Formoterol 160/4.5 1 PUFF INH IH SCH ×2 (10:29→21:39)
[2020-01-06] MEDS: Gabapentin 300 MG CAPSULE PO SCH (20:03)
[2020-01-06] MEDS: ALPRAZolam 0.5 MG TABLET PO PRN (20:07)
[2020-01-06] MEDS: Insulin DETEMIR 100 UNIT/ML X5UNITS SQ SCH (20:08)
[2020-01-06 23:10] LABS: APTT (LE Anticoag) 42 sec (32-48); Diluted Russell VVT Confirm NEGATIVE ratio (Negative); Diluted Russell Viper Venom 58 sec (33-44); LE Dil. Russell Viper Mix 1:1 48 sec (33-44); LE Hexagonal Phospholipid Neut NEGATIVE (Negative); PT (LE-Anticoag) 27.6 sec (12.0-15.5)
[2020-01-07] MEDS: Levalbuterol Neb 0.63 MG/3 ML IH SCH ×4 (03:38→22:13)
[2020-01-07 03:59] LABS: BUN/Creatinine Ratio 30 (6-26); Blood Urea Nitrogen 25 mg/dL (8-23); Calcium 8.2 mg/dL (8.6-10.3); Carbon Dioxide 32 mEq/L (23-29); Chloride 106 mEq/L (98-107); Glucose 245 mg/dL (70-105); Osmolality,Calculated 311 (280-300); Potassium 3.9 mEq/L (3.5-5.1); Sodium 144 mEq/L (136-145); eGFR For African Americans > 60 (> 60); eGFR For Non-African Americans > 60 (> 60)
[2020-01-07] MEDS: Furosemide 40 MG/4 ML VIAL IVP SCH ×3 (07:45→18:23)
[2020-01-07] MEDS: Budesonide/Formoterol 160/4.5 1 PUFF INH IH SCH ×2 (10:30→22:13)
[2020-01-07] MEDS: Ranolazine 500 MG TAB.ER.12H PO SCH ×2 (10:46→20:53)
[2020-01-07] MEDS: Apixaban 5 MG TABLET PO SCH ×2 (10:46→20:53)
[2020-01-07] MEDS: Aspirin 81 MG TAB.CHEW PO SCH (10:46)
[2020-01-07] MEDS: Metoprolol XL (24 HR) Succ 50 MG TAB.ER.24H PO SCH ×2 (10:46→20:53)
[2020-01-07] MEDS: Insulin LISPRO 300 UNITS/3 ML VIAL SQ SCH ×4 (10:47→20:55)
[2020-01-07] MEDS: *HR* HYDROcodone/Acet 5/325 mg TABLET PO PRN (10:56)
[2020-01-07] MEDS: Gabapentin 300 MG CAPSULE PO SCH (20:53)
[2020-01-07] MEDS: Insulin DETEMIR 100 UNIT/ML X5UNITS SQ SCH (20:54)
[2020-01-07] MEDS: ALPRAZolam 0.5 MG TABLET PO PRN (21:45)
[2020-01-08] MEDS: *HR* HYDROcodone/Acet 5/325 mg TABLET PO PRN ×3 (00:18→18:05)
[2020-01-08] MEDS: Levalbuterol Neb 0.63 MG/3 ML IH SCH ×4 (04:18→22:27)
[2020-01-08 04:42] LABS: BUN/Creatinine Ratio 27 (6-26); Blood Urea Nitrogen 26 mg/dL (8-23); Calcium 8.4 mg/dL (8.6-10.3); Carbon Dioxide 35 mEq/L (23-29); Chloride 102 mEq/L (98-107); Glucose 210 mg/dL (70-105); Osmolality,Calculated 307 (280-300); Potassium 3.5 mEq/L (3.5-5.1); Sodium 143 mEq/L (136-145); eGFR For African Americans > 60 (> 60); eGFR For Non-African Americans 57 (> 60)
[2020-01-08] MEDS: Ranolazine 500 MG TAB.ER.12H PO SCH ×2 (10:04→20:22)
[2020-01-08] MEDS: Apixaban 5 MG TABLET PO SCH ×2 (10:04→20:22)
[2020-01-08] MEDS: Metoprolol XL (24 HR) Succ 50 MG TAB.ER.24H PO SCH ×2 (10:05→20:22)
[2020-01-08] MEDS: Aspirin 81 MG TAB.CHEW PO SCH (10:05)
[2020-01-08] MEDS: ALPRAZolam 0.5 MG TABLET PO PRN ×2 (10:05→18:05)
[2020-01-08] MEDS: Furosemide 40 MG/4 ML VIAL IVP SCH ×3 (10:05→17:58)
[2020-01-08] MEDS: Insulin LISPRO 300 UNITS/3 ML VIAL SQ SCH ×4 (10:05→20:23)
[2020-01-08] MEDS: Budesonide/Formoterol 160/4.5 1 PUFF INH IH SCH ×2 (10:41→22:27)
[2020-01-08] MEDS: MethylPREDNISolone 40 MG/ML VIAL IVP SCH (17:58)
[2020-01-08] MEDS: Gabapentin 300 MG CAPSULE PO SCH (20:22)
[2020-01-08] MEDS ORDERED: Insulin DETEMIR 100 UNIT/ML X5UNITS SQ SCH (21:00)
[2020-01-09] MEDS: *HR* HYDROcodone/Acet 5/325 mg TABLET PO PRN ×4 (00:18→20:55)
[2020-01-09] MEDS: Levalbuterol Neb 0.63 MG/3 ML IH SCH ×4 (03:48→21:57)
[2020-01-09 06:14] LABS: BUN/Creatinine Ratio 33 (6-26); Blood Urea Nitrogen 29 mg/dL (8-23); Calcium 8.6 mg/dL (8.6-10.3); Carbon Dioxide 32 mEq/L (23-29); Chloride 102 mEq/L (98-107); Glucose 387 mg/dL (70-105); Magnesium 1.9 mg/dL (1.6-2.6); Osmolality,Calculated 316 (280-300); Potassium 3.4 mEq/L (3.5-5.1); Sodium 142 mEq/L (136-145); eGFR For African Americans > 60 (> 60); eGFR For Non-African Americans > 60 (> 60)
[2020-01-09] MEDS: MethylPREDNISolone 40 MG/ML VIAL IVP SCH ×2 (06:16→17:20)
[2020-01-09] MEDS: ALPRAZolam 0.5 MG TABLET PO PRN ×2 (06:21→17:20)
[2020-01-09] MEDS: Apixaban 5 MG TABLET PO SCH ×2 (09:44→20:50)
[2020-01-09] MEDS: Ranolazine 500 MG TAB.ER.12H PO SCH ×2 (09:44→20:50)
[2020-01-09] MEDS: Aspirin 81 MG TAB.CHEW PO SCH (09:45)
[2020-01-09] MEDS: Furosemide 40 MG/4 ML VIAL IVP SCH ×3 (09:45→17:20)
[2020-01-09] MEDS: Spironolactone 25 MG TABLET PO SCH (09:45)
[2020-01-09] MEDS: Metoprolol XL (24 HR) Succ 50 MG TAB.ER.24H PO SCH ×2 (09:45→20:50)
[2020-01-09] MEDS: Insulin LISPRO 300 UNITS/3 ML VIAL SQ SCH ×3 (09:45→17:21)
[2020-01-09] MEDS: Budesonide/Formoterol 160/4.5 1 PUFF INH IH SCH ×2 (10:43→21:57)
[2020-01-09] MEDS ORDERED: Insulin LISPRO 300 UNITS/3 ML VIAL SQ SCH ×2 (17:15)
[2020-01-09] MEDS: Gabapentin 300 MG CAPSULE PO SCH (20:50)
[2020-01-09] MEDS ORDERED: Insulin DETEMIR 100 UNIT/ML X5UNITS SQ SCH ×2 (21:00)
[2020-01-10] MEDS: ALPRAZolam 0.5 MG TABLET PO PRN (01:31)
[2020-01-10] MEDS: Levalbuterol Neb 0.63 MG/3 ML IH SCH ×2 (03:57→10:44)
[2020-01-10] MEDS: *HR* HYDROcodone/Acet 5/325 mg TABLET PO PRN (05:50)
[2020-01-10] MEDS: MethylPREDNISolone 40 MG/ML VIAL IVP SCH (05:51)
[2020-01-10 06:08] LABS: BUN/Creatinine Ratio 34 (6-26); Blood Urea Nitrogen 31 mg/dL (8-23); Calcium 8.7 mg/dL (8.6-10.3); Carbon Dioxide 34 mEq/L (23-29); Chloride 101 mEq/L (98-107); Glucose 206 mg/dL (70-105); Osmolality,Calculated 313 (280-300); Potassium 3.4 mEq/L (3.5-5.1); Sodium 145 mEq/L (136-145); eGFR For African Americans > 60 (> 60); eGFR For Non-African Americans > 60 (> 60)
[2020-01-10 07:04] VITALS: BP 110/74
[2020-01-10] MEDS: Furosemide 40 MG/4 ML VIAL IVP SCH (07:48)
[2020-01-10] MEDS: Ranolazine 500 MG TAB.ER.12H PO SCH (07:50)
[2020-01-10] MEDS: Metoprolol XL (24 HR) Succ 50 MG TAB.ER.24H PO SCH (07:50)
[2020-01-10] MEDS: Aspirin 81 MG TAB.CHEW PO SCH (07:50)
[2020-01-10] MEDS: Spironolactone 25 MG TABLET PO SCH (07:50)
[2020-01-10] MEDS: Apixaban 5 MG TABLET PO SCH (07:50)
[2020-01-10] MEDS: Budesonide/Formoterol 160/4.5 1 PUFF INH IH SCH (10:42)
== END 2020-01-10 11:59 | disposition home or self-care (01) | DRG 291 ==
LOC: 2NNU 12:39 → EMEROOARM 12:39 → SUATTDRO 21:41 → 2NNU 22:30 → 2ANU 01-02 11:20 → SUATTDRO 01-03 16:15
PROVIDERS: ADMIT Internal Medicine; ATTEND Internal Medicine

== ENCOUNTER 2020-02-06 19:37 | Inpatient (IN) ==
[2020-02-06] MEDS ORDERED: methylPREDNISolone 125 MG/2 ML VIAL IVP ONE (20:36)
[2020-02-06] MEDS ORDERED: Ipratropium/Albuterol Neb 3 ML IH ONE (20:36)
[2020-02-06] MEDS ORDERED: cefTRIAXone 1,000 MG in Water for inj. (sterile) 10 ML IVP ONE (20:36)
[2020-02-06 20:43] LABS: Basophils % 0.2 %; Hematocrit 25.4 % (35.3-44.9); Hemoglobin 7.2 g/dL (11.5-15.4); Mean Corpuscular HGB Conc 28.3 g/dL (31.6-35.5)
[2020-02-06 20:45] LABS: Eosinophils # 0.1 K/mcL (0.0-0.6); Eosinophils % 1.7 %; Immature Granulocytes % 0.6 % (0-4); Lymphocytes # 0.7 K/mcL (0.6-4.6); Lymphocytes % 13.5 %; Mean Corpuscular Hemoglobin 23.2 pg (28.0-33.3); Mean Corpuscular Volume 81.7 fL (83.0-100.0); Mean Platelet Volume 9.5 fL (9.4-12.4); Monocytes # 0.6 K/mcL (0.0-1.3); Monocytes % 13.1 %; Neutrophils # 3.4 K/mcL (1.6-8.9); Platelet Count 203 K/mcL (140-400); Red Blood Count 3.11 M/mcL (3.82-4.97); Red Cell Distribution Width 19.6 % (11.5-14.5); Segmented Neutrophils % 70.9 %; White Blood Count 4.8 K/mcL (4.3-11.1)
[2020-02-06 20:55] LABS: INR 3.6
[2020-02-06 21:07] LABS: Anisocytosis 1+ (Not Present); Hypochromasia Present (Not Present); Platelet Estimate Normal (Normal)
[2020-02-06] MEDS ORDERED: Furosemide 20 MG/2 ML VIAL IVP ONE (21:16)
[2020-02-06 21:18] LABS: Albumin 3.3 g/dL (3.5-5.7); Albumin/Globulin Ratio 1.1 (1.1-2.2); Bilirubin,Direct 0.3 mg/dL (0.0-0.2); Bilirubin,Indirect 0.4 mg/dL (0.0-1.0); Bilirubin,Total 0.7 mg/dL (0.3-1.0); Calcium 9.2 mg/dL (8.6-10.3); Globulin 2.9 g/dL (2.4-3.5); Potassium 3.3 mEq/L (3.5-5.1); Total Protein 6.2 g/dL (6.4-8.9); Troponin I 0.05 ng/mL (< 0.04)
[2020-02-06] MEDS ORDERED: Naloxone 0.4 MG/ML INJ IVP PRN (22:39)
[2020-02-06] MEDS ORDERED: Nitroglycerin 0.4 MG TAB.SUBL SL PRN (22:48)
[2020-02-06] MEDS ORDERED: Ondansetron ODT 4 MG TAB.RAPDIS PO PRN (22:48)
[2020-02-06] MEDS ORDERED: D5% in Water 1,000 ML IVC PRN (22:51)
[2020-02-06] MEDS ORDERED: *HR* Dextrose 50 % in Water (Syg) 50 ML SYRINGE IVP PRN (22:51)
[2020-02-06] MEDS ORDERED: Dextrose Gel 15 GM/37.5 ML TUBE PO PRN ×2 (22:51)
[2020-02-07] MEDS ORDERED: Levalbuterol Neb 0.63 MG/3 ML IH PRN
[2020-02-07] MEDS: Furosemide 40 MG/4 ML VIAL IVP SCH ×3 (00:24→21:36)
[2020-02-07] MEDS ORDERED: 0.9 % Sodium Chloride 250 ML ONE (00:44)
[2020-02-07] MEDS: ALPRAZolam 0.5 MG TABLET PO PRN ×3 (00:54→21:49)
[2020-02-07] MEDS: tiZANidine 4 MG TABLET PO PRN (00:55)
[2020-02-07 01:37] LABS: Basophils % 0.2 %; Immature Granulocytes % 0.6 % (0-4); Mean Corpuscular Volume 82.2 fL (83.0-100.0)
[2020-02-07 01:38] LABS: Eosinophils # 0.1 K/mcL (0.0-0.6); Eosinophils % 1.2 %; Hematocrit 26.4 % (35.3-44.9); Hemoglobin 7.3 g/dL (11.5-15.4); Lymphocytes # 0.4 K/mcL (0.6-4.6); Lymphocytes % 6.9 %; Mean Corpuscular HGB Conc 27.7 g/dL (31.6-35.5); Mean Corpuscular Hemoglobin 22.7 pg (28.0-33.3); Mean Platelet Volume 10.4 fL (9.4-12.4); Monocytes # 0.2 K/mcL (0.0-1.3); Monocytes % 4.1 %; Neutrophils # 4.4 K/mcL (1.6-8.9); Platelet Count 229 K/mcL (140-400); Red Blood Count 3.21 M/mcL (3.82-4.97); Red Cell Distribution Width 19.7 % (11.5-14.5); White Blood Count 5.1 K/mcL (4.3-11.1)
[2020-02-07 01:57] LABS: BUN/Creatinine Ratio 27 (6-26); Blood Urea Nitrogen 29 mg/dL (8-23); Calcium 9.2 mg/dL (8.6-10.3); Carbon Dioxide 30 mEq/L (23-29); Chloride 97 mEq/L (98-107); Glucose 176 mg/dL (70-105); Osmolality,Calculated 288 (280-300); Potassium 3.6 mEq/L (3.5-5.1); Sodium 134 mEq/L (136-145); eGFR For African Americans > 60 (> 60); eGFR For Non-African Americans 51 (> 60)
[2020-02-07 02:01] LABS: Hypochromasia Present (Not Present); Platelet Estimate Normal (Normal)
[2020-02-07] MEDS: polyethylene glycoL 3350 17 GM POWD.PACK PO SCH (07:58)
[2020-02-07] MEDS: Metoprolol XL (24 HR) Succ 50 MG TAB.ER.24H PO SCH ×2 (07:59→21:35)
[2020-02-07] MEDS: Ranolazine 500 MG TAB.ER.12H PO SCH ×2 (07:59→21:36)
[2020-02-07] MEDS: Apixaban 5 MG TABLET PO SCH ×2 (07:59→21:36)
[2020-02-07] MEDS: Cholecalciferol (D-3) 1,000 UNIT (25MCG) TABLET PO SCH (08:00)
[2020-02-07] MEDS: Insulin LISPRO 300 UNITS/3 ML VIAL SQ SCH ×3 (08:05→17:01)
[2020-02-07] MEDS: Budesonide/Formoterol 80/4.5 1 PUFF INH IH SCH ×2 (09:34→20:32)
[2020-02-07] MEDS: metOLazone 5 MG TABLET PO SCH (09:58)
[2020-02-07] MEDS ORDERED: FLU Vac QV 19-20 (6Month+)/PF 0.5 ML SYRINGE IM ONE (16:09)
[2020-02-07] MEDS: Gabapentin 300 MG CAPSULE PO SCH (21:35)
[2020-02-08] MEDS ORDERED: Ondansetron ODT 4 MG TAB.RAPDIS SL PRN (01:58)
[2020-02-08 02:28] LABS: Basophils % 0.1 %; Mean Corpuscular HGB Conc 28.5 g/dL (31.6-35.5)
[2020-02-08 02:30] LABS: Eosinophils # 0.1 K/mcL (0.0-0.6); Eosinophils % 0.8 %; Hematocrit 28.1 % (35.3-44.9); Immature Granulocytes % 0.3 % (0-4); Lymphocytes # 1.1 K/mcL (0.6-4.6); Lymphocytes % 14.6 %; Mean Corpuscular Hemoglobin 23.4 pg (28.0-33.3); Mean Corpuscular Volume 82.2 fL (83.0-100.0); Mean Platelet Volume 10.1 fL (9.4-12.4); Monocytes # 0.8 K/mcL (0.0-1.3); Neutrophils # 5.4 K/mcL (1.6-8.9); Nucleated Red Blood Cells 0.3 /100 WBC (0); Platelet Count 258 K/mcL (140-400); Red Blood Count 3.42 M/mcL (3.82-4.97); Red Cell Distribution Width 19.7 % (11.5-14.5); Segmented Neutrophils % 73.2 %; White Blood Count 7.4 K/mcL (4.3-11.1)
[2020-02-08 02:46] LABS: Calcium 9.3 mg/dL (8.6-10.3); Potassium 3.4 mEq/L (3.5-5.1)
[2020-02-08 02:59] LABS: Hypochromasia Present (Not Present); Microcytosis Present (Not Present); Ovalocytes 2+ (Not Present); Platelet Estimate Normal (Normal); Tear Drop Cells 3+ (Not Present)
[2020-02-08] MEDS: Budesonide/Formoterol 80/4.5 1 PUFF INH IH SCH ×2 (07:17→20:19)
[2020-02-08] MEDS ORDERED: Insulin DETEMIR 100 UNIT/ML X5UNITS SQ ONE (07:30)
[2020-02-08] MEDS ORDERED: Metoprolol XL (24 HR) Succ 50 MG TAB.ER.24H PO ONE (07:56)
[2020-02-08] MEDS ORDERED: metOLazone 5 MG TABLET ONE (07:56)
[2020-02-08] MEDS ORDERED: Furosemide 40 MG/4 ML VIAL ONE (07:56)
[2020-02-08] MEDS ORDERED: Potassium Chloride Elixir 20 MEQ/15 ML UDC ONE (07:56)
[2020-02-08] MEDS ORDERED: polyethylene glycoL 3350 17 GM POWD.PACK ONE (07:56)
[2020-02-08] MEDS ORDERED: ALPRAZolam 0.5 MG TABLET ONE (07:56)
[2020-02-08] MEDS ORDERED: Ranolazine 500 MG TAB.ER.12H PO ONE (07:56)
[2020-02-08] MEDS ORDERED: Apixaban 5 MG TABLET ONE (07:56)
[2020-02-08 16:26] LABS: ABG Base Excess 14 mEq/L (-2 to 3); ABG HCO3 41 mEq/L (21-27); ABG Oxygen Saturation 47 % (95-98); ABG PCO2 72 mmHg (35-45); ABG PH 7.36 pH Units (7.32-7.45); ABG PO2 28 mmHg (85-104); ABG TCO2 43 mEq/L (20-26)
[2020-02-08] MEDS ORDERED: MethylPREDNISolone 40 MG/ML VIAL IVP ONE (16:37)
[2020-02-08] MEDS: Ipratropium/Albuterol Neb 3 ML IH SCH ×3 (17:17→23:51)
[2020-02-08] MEDS: Budesonide/Formoterol 160/4.5 1 PUFF INH IH SCH (20:21)
[2020-02-08] MEDS: Insulin LISPRO 300 UNITS/3 ML VIAL SQ SCH ×3 (21:02→21:12)
[2020-02-08] MEDS: Potassium Chloride Elixir 20 MEQ/15 ML UDC PO SCH ×2 (21:02→21:05)
[2020-02-08] MEDS: polyethylene glycoL 3350 17 GM POWD.PACK PO SCH (21:03)
[2020-02-08] MEDS: Furosemide 40 MG/4 ML VIAL IVP SCH ×2 (21:03→21:14)
[2020-02-08] MEDS: Apixaban 5 MG TABLET PO SCH ×2 (21:03→21:13)
[2020-02-08] MEDS: Ranolazine 500 MG TAB.ER.12H PO SCH ×2 (21:04→21:13)
[2020-02-08] MEDS: metOLazone 5 MG TABLET PO SCH (21:04)
[2020-02-08] MEDS: Cholecalciferol (D-3) 1,000 UNIT (25MCG) TABLET PO SCH (21:04)
[2020-02-08] MEDS: Metoprolol XL (24 HR) Succ 50 MG TAB.ER.24H PO SCH ×2 (21:04→21:13)
[2020-02-08] MEDS: Gabapentin 300 MG CAPSULE PO SCH (21:13)
[2020-02-08] MEDS: Insulin DETEMIR 100 UNIT/ML X5UNITS SQ SCH (21:14)
[2020-02-09] MEDS ORDERED: Haloperidol Lactate 5 MG/ML VIAL IVP ONE (01:07)
[2020-02-09] MEDS: Ipratropium/Albuterol Neb 3 ML IH SCH ×6 (03:36→23:59)
[2020-02-09 03:39] LABS: Hemoglobin 7.5 g/dL (11.5-15.4); Mean Corpuscular Hemoglobin 23.3 pg (28.0-33.3); Red Blood Count 3.22 M/mcL (3.82-4.97)
[2020-02-09 03:40] LABS: Hematocrit 26.3 % (35.3-44.9); Immature Granulocytes % 0.6 % (0-4); Lymphocytes # 0.4 K/mcL (0.6-4.6); Lymphocytes % 7.8 %; Mean Corpuscular HGB Conc 28.5 g/dL (31.6-35.5); Mean Corpuscular Volume 81.7 fL (83.0-100.0); Monocytes # 0.4 K/mcL (0.0-1.3); Monocytes % 7.4 %; Neutrophils # 4.2 K/mcL (1.6-8.9); Platelet Count 226 K/mcL (140-400); Red Cell Distribution Width 19.5 % (11.5-14.5); Segmented Neutrophils % 84.2 %
[2020-02-09 03:40] LABS: ABG Base Excess 14 mEq/L (-2 to 3); ABG HCO3 39 mEq/L (21-27); ABG Oxygen Saturation 98 % (95-98); ABG PCO2 53 mmHg (35-45); ABG PH 7.48 pH Units (7.32-7.45); ABG PO2 107 mmHg (85-104); ABG TCO2 41 mEq/L (20-26); Blood Gas Modality BiLevel; Blood Gas VT 450 cc
[2020-02-09 03:59] LABS: Calcium 9.6 mg/dL (8.6-10.3); Magnesium 1.9 mg/dL (1.6-2.6); Phosphorous 4.5 mg/dL (2.7-4.5); Potassium 3.1 mEq/L (3.5-5.1)
[2020-02-09 04:41] LABS: Hypochromasia Present (Not Present); Ovalocytes 2+ (Not Present); Platelet Estimate Normal (Normal); Target Cells 1+ (Not Present); Tear Drop Cells 1+ (Not Present)
[2020-02-09] MEDS: Budesonide/Formoterol 160/4.5 1 PUFF INH IH SCH ×2 (08:07→19:59)
[2020-02-09] MEDS: Budesonide/Formoterol 80/4.5 1 PUFF INH IH SCH (08:12)
[2020-02-09] MEDS: Insulin LISPRO 300 UNITS/3 ML VIAL SQ SCH ×3 (09:43→17:55)
[2020-02-09] MEDS: Furosemide 40 MG/4 ML VIAL IVP SCH ×2 (09:44→21:24)
[2020-02-09] MEDS: polyethylene glycoL 3350 17 GM POWD.PACK PO SCH (09:45)
[2020-02-09] MEDS: Potassium Chloride Elixir 20 MEQ/15 ML UDC PO SCH ×2 (09:46→12:34)
[2020-02-09] MEDS: Ranolazine 500 MG TAB.ER.12H PO SCH ×2 (09:47→21:21)
[2020-02-09] MEDS: Metoprolol XL (24 HR) Succ 50 MG TAB.ER.24H PO SCH ×2 (09:49→21:22)
[2020-02-09] MEDS: Apixaban 5 MG TABLET PO SCH ×2 (09:49→21:24)
[2020-02-09] MEDS: MethylPREDNISolone 40 MG/ML VIAL IVP SCH ×2 (10:02→18:01)
[2020-02-09] MEDS: Cholecalciferol (D-3) 1,000 UNIT (25MCG) TABLET PO SCH (10:04)
[2020-02-09] MEDS ORDERED: Haloperidol Lactate 5 MG/ML VIAL IVP PRN (10:08)
[2020-02-09] MEDS: Gabapentin 300 MG CAPSULE PO SCH (21:22)
[2020-02-09] MEDS: Insulin DETEMIR 100 UNIT/ML X5UNITS SQ SCH (21:23)
[2020-02-09] MEDS ORDERED: Insulin LISPRO 300 UNITS/3 ML VIAL SQ SCH (22:00)
[2020-02-10] MEDS ORDERED: Insulin LISPRO 300 UNITS/3 ML VIAL SQ SCH (00:45)
[2020-02-10 03:02] LABS: Basophils % 0.1 %; Hematocrit 27.1 % (35.3-44.9); Hemoglobin 7.9 g/dL (11.5-15.4); Immature Granulocytes % 0.6 % (0-4); Lymphocytes # 0.4 K/mcL (0.6-4.6); Lymphocytes % 5.5 %; Mean Corpuscular HGB Conc 29.2 g/dL (31.6-35.5); Mean Corpuscular Hemoglobin 23.9 pg (28.0-33.3); Mean Corpuscular Volume 82.1 fL (83.0-100.0); Mean Platelet Volume 10.2 fL (9.4-12.4); Monocytes # 0.5 K/mcL (0.0-1.3); Monocytes % 6.8 %; Neutrophils # 6.1 K/mcL (1.6-8.9); Platelet Count 239 K/mcL (140-400)
[2020-02-10 03:18] LABS: Calcium 9.7 mg/dL (8.6-10.3); Phosphorous 3.4 mg/dL (2.7-4.5); Potassium 3.5 mEq/L (3.5-5.1)
[2020-02-10] MEDS: Ipratropium/Albuterol Neb 3 ML IH SCH ×4 (03:23→15:41)
[2020-02-10] MEDS: MethylPREDNISolone 40 MG/ML VIAL IVP SCH (06:48)
[2020-02-10 06:54] VITALS: BP 104/76
[2020-02-10] MEDS: Budesonide/Formoterol 160/4.5 1 PUFF INH IH SCH (07:22)
[2020-02-10] MEDS ORDERED: Insulin DETEMIR 100 UNIT/ML X5UNITS SQ ONE (07:25)
[2020-02-10 08:20] LABS: Estimated Average Glucose 189 mg/dl
[2020-02-10] MEDS: Apixaban 5 MG TABLET PO SCH (09:22)
[2020-02-10] MEDS: Metoprolol XL (24 HR) Succ 50 MG TAB.ER.24H PO SCH (09:22)
[2020-02-10] MEDS: Ranolazine 500 MG TAB.ER.12H PO SCH (09:22)
[2020-02-10] MEDS: polyethylene glycoL 3350 17 GM POWD.PACK PO SCH (09:23)
[2020-02-10] MEDS: Albumin 25% 25gram/100mL 25 GM/100 ML IV.SOLN IVC SCH ×2 (09:23→11:15)
[2020-02-10] MEDS: tiZANidine 4 MG TABLET PO PRN (09:35)
[2020-02-10] MEDS: Insulin LISPRO 300 UNITS/3 ML VIAL SQ SCH ×3 (09:35→16:35)
[2020-02-10] MEDS ORDERED: Cholecalciferol (D-3) 1,000 UNIT (25MCG) TABLET PO SCH (09:45)
[2020-02-10] MEDS ORDERED: Insulin DETEMIR 100 UNIT/ML X5UNITS SQ SCH (21:00)
== END 2020-02-10 17:07 | disposition home or self-care (01) | DRG 280 ==
LOC: 2NENU 19:37 → EMEROOARM 19:37 → 2NENU 22:54
PROVIDERS: ADMIT Student in an Organized Health Care Education/Training Program; ATTEND Student in an Organized Health Care Education/Training Program

== ENCOUNTER 2020-02-14 17:35 | Observation (INO) ==
[2020-02-14 18:39] LABS: Basophils % 0.2 %; Immature Granulocytes % 0.4 % (0-4); Lymphocytes % 15.2 %
[2020-02-14 18:41] LABS: Eosinophils # 0.1 K/mcL (0.0-0.6); Eosinophils % 1.5 %; Hematocrit 30.2 % (35.3-44.9); Hemoglobin 8.4 g/dL (11.5-15.4); Lymphocytes # 0.8 K/mcL (0.6-4.6); Mean Corpuscular HGB Conc 27.8 g/dL (31.6-35.5); Mean Corpuscular Hemoglobin 22.6 pg (28.0-33.3); Mean Corpuscular Volume 81.2 fL (83.0-100.0); Mean Platelet Volume 10.3 fL (9.4-12.4); Monocytes # 0.9 K/mcL (0.0-1.3); Monocytes % 16.3 %; Neutrophils # 3.5 K/mcL (1.6-8.9); Nucleated Red Blood Cells 0.4 /100 WBC (0); Platelet Count 283 K/mcL (140-400); Red Blood Count 3.72 M/mcL (3.82-4.97); Segmented Neutrophils % 66.4 %; White Blood Count 5.2 K/mcL (4.3-11.1)
[2020-02-14 18:52] LABS: BUN/Creatinine Ratio 31 (6-26); Blood Urea Nitrogen 33 mg/dL (8-23); Calcium 9.5 mg/dL (8.6-10.3); Carbon Dioxide 44 mEq/L (23-29); Chloride 92 mEq/L (98-107); Glucose 174 mg/dL (70-105); Osmolality,Calculated 305 (280-300); Potassium 2.6 mEq/L (3.5-5.1); Sodium 142 mEq/L (136-145); eGFR For African Americans > 60 (> 60); eGFR For Non-African Americans 50 (> 60)
[2020-02-14] MEDS ORDERED: Piperacillin/Tazobactam 3.375 GM in 0.9 % Sodium Chloride Mini Bag 100 ML IVPB ONE (18:54)
[2020-02-14] MEDS ORDERED: Cefepime HCl 2,000 MG in Water for inj. (sterile) 20 ML IVP STA (18:55)
[2020-02-14] MEDS ORDERED: Azithromycin 500 MG in 0.9 % Sodium Chloride 250 ML IVPB ONE (19:02)
[2020-02-14] MEDS ORDERED: Potassium Chloride 40 MEQ, Lidocaine 1% 2 ML in 0.9 % Sodium Chloride 500 ML IVPB ONE (19:02)
[2020-02-14 19:24] LABS: Hypochromasia Present (Not Present)
[2020-02-14 19:25] LABS: Microcytosis Present (Not Present); Platelet Estimate Normal (Normal); Poikilocytosis 1+ (Not Present)
[2020-02-14 19:26] LABS: Anisocytosis 1+ (Not Present); Ovalocytes 2+ (Not Present)
[2020-02-14] MEDS ORDERED: Naloxone 0.4 MG/ML INJ IVP PRN (20:31)
[2020-02-14 20:49] LABS: Magnesium 1.9 mg/dL (1.6-2.6)
[2020-02-14] MEDS ORDERED: D5% in Water 1,000 ML IVC PRN (21:08)
[2020-02-14] MEDS ORDERED: Dextrose Gel 15 GM/37.5 ML TUBE PO PRN ×2 (21:08)
[2020-02-14] MEDS ORDERED: *HR* Dextrose 50 % in Water (Syg) 50 ML SYRINGE IVP PRN (21:08)
[2020-02-14] MEDS ORDERED: Benzonatate 100 MG CAPSULE PO PRN (21:13)
[2020-02-14] MEDS: Apixaban 5 MG TABLET PO SCH (22:57)
[2020-02-14] MEDS: Torsemide 20 MG TABLET PO SCH (22:57)
[2020-02-14] MEDS: Metoprolol XL (24 HR) Succ 50 MG TAB.ER.24H PO SCH (22:58)
[2020-02-15 02:32] LABS: Mean Corpuscular HGB Conc 27.5 g/dL (31.6-35.5); Mean Platelet Volume 9.7 fL (9.4-12.4); Platelet Count 262 K/mcL (140-400); Red Cell Distribution Width 19.9 % (11.5-14.5)
[2020-02-15 02:33] LABS: Hematocrit 31.3 % (35.3-44.9); Hemoglobin 8.6 g/dL (11.5-15.4); Mean Corpuscular Hemoglobin 22.8 pg (28.0-33.3); Mean Corpuscular Volume 82.8 fL (83.0-100.0); Red Blood Count 3.78 M/mcL (3.82-4.97); White Blood Count 6.5 K/mcL (4.3-11.1)
[2020-02-15] MEDS: Ondansetron ODT 4 MG TAB.RAPDIS SL PRN (02:42)
[2020-02-15 02:59] LABS: Calcium 9.2 mg/dL (8.6-10.3); Phosphorous 2.4 mg/dL (2.7-4.5); Potassium 2.9 mEq/L (3.5-5.1)
[2020-02-15] MEDS ORDERED: Cefepime HCl 2,000 MG in Water for inj. (sterile) 20 ML IVP SCH (04:00)
[2020-02-15] MEDS ORDERED: Potassium Phosphate 44 MEQ in 0.9 % Sodium Chloride 250 ML IVPB ONE (07:16)
[2020-02-15] MEDS ORDERED: Levalbuterol Neb 0.63 MG/3 ML IH PRN (07:22)
[2020-02-15] MEDS: Apixaban 5 MG TABLET PO SCH ×2 (07:54→22:11)
[2020-02-15] MEDS: Cefdinir 300 MG CAPSULE PO SCH ×2 (07:54→22:12)
[2020-02-15] MEDS: ALPRAZolam 0.5 MG TABLET PO PRN ×2 (07:54→17:20)
[2020-02-15] MEDS: Ranolazine 500 MG TAB.ER.12H PO SCH ×2 (07:55→22:12)
[2020-02-15] MEDS: Metoprolol XL (24 HR) Succ 50 MG TAB.ER.24H PO SCH (07:55)
[2020-02-15] MEDS: Torsemide 20 MG TABLET PO SCH ×2 (07:55→17:20)
[2020-02-15] MEDS: polyethylene glycoL 3350 17 GM POWD.PACK PO SCH (07:55)
[2020-02-15] MEDS: Insulin LISPRO 300 UNITS/3 ML VIAL SQ SCH ×3 (07:55→17:20)
[2020-02-15] MEDS: Budesonide/Formoterol 160/4.5 1 PUFF INH IH SCH (08:41)
[2020-02-15] MEDS ORDERED: Aminoglycoside Consult 1 EACH MC ONE (13:39)
[2020-02-15] MEDS ORDERED: Azithromycin 500 MG in D5% in Water 250 ML IVPB SCH (18:00)
[2020-02-15] MEDS ORDERED: Insulin LISPRO 300 UNITS/3 ML VIAL SQ SCH (21:00)
[2020-02-15] MEDS ORDERED: Insulin DETEMIR 100 UNIT/ML X5UNITS SQ SCH (21:00)
[2020-02-16] MEDS: Metoprolol XL (24 HR) Succ 50 MG TAB.ER.24H PO SCH ×2 (01:00→07:44)
[2020-02-16] MEDS: Ondansetron ODT 4 MG TAB.RAPDIS SL PRN (01:01)
[2020-02-16 05:11] LABS: BUN/Creatinine Ratio 27 (6-26); Blood Urea Nitrogen 25 mg/dL (8-23); Calcium 9.3 mg/dL (8.6-10.3); Carbon Dioxide 39 mEq/L (23-29); Chloride 99 mEq/L (98-107); Glucose 88 mg/dL (70-105); Magnesium 1.9 mg/dL (1.6-2.6); Osmolality,Calculated 300 (280-300); Phosphorous 2.6 mg/dL (2.7-4.5); Potassium 3.3 mEq/L (3.5-5.1); Sodium 143 mEq/L (136-145); eGFR For African Americans > 60 (> 60); eGFR For Non-African Americans 59 (> 60)
[2020-02-16] MEDS: Torsemide 20 MG TABLET PO SCH (07:43)
[2020-02-16] MEDS: Insulin LISPRO 300 UNITS/3 ML VIAL SQ SCH ×2 (07:43→11:44)
[2020-02-16] MEDS: Apixaban 5 MG TABLET PO SCH (07:43)
[2020-02-16] MEDS: Ranolazine 500 MG TAB.ER.12H PO SCH (07:44)
[2020-02-16] MEDS: Cefdinir 300 MG CAPSULE PO SCH (07:44)
[2020-02-16] MEDS: ALPRAZolam 0.5 MG TABLET PO PRN (07:44)
[2020-02-16] MEDS: polyethylene glycoL 3350 17 GM POWD.PACK PO SCH (07:45)
[2020-02-16] MEDS: Budesonide/Formoterol 160/4.5 1 PUFF INH IH SCH (08:03)
[2020-02-16 10:56] VITALS: BP 101/67
== END 2020-02-16 13:40 | disposition home health service (06) ==
LOC: 2ANU 17:35 → EMEROOARM 17:35 → SUATTDRO 20:18 → 2ANU 20:48
PROVIDERS: ADMIT Family Medicine; ATTEND Internal Medicine

== ENCOUNTER 2020-02-25 15:32 | Observation (INO) ==
[2020-02-25] MEDS ORDERED: 0.9 % Sodium Chloride 1,000 ML IVC ONE (15:41)
[2020-02-25] MEDS ORDERED: Ipratropium/Albuterol Neb 3 ML IH ONE (15:46)
[2020-02-25 16:12] LABS: Immature Granulocytes % 0.5 % (0-4)
[2020-02-25 16:13] LABS: Basophils % 0.1 %; Eosinophils # 0.1 K/mcL (0.0-0.6); Eosinophils % 0.9 %; Hematocrit 30.4 % (35.3-44.9); Hemoglobin 8.6 g/dL (11.5-15.4); Lymphocytes # 0.7 K/mcL (0.6-4.6); Lymphocytes % 8.9 %; Mean Corpuscular HGB Conc 28.3 g/dL (31.6-35.5); Mean Corpuscular Hemoglobin 22.9 pg (28.0-33.3); Mean Corpuscular Volume 80.9 fL (83.0-100.0); Mean Platelet Volume 9.9 fL (9.4-12.4); Monocytes # 0.6 K/mcL (0.0-1.3); Monocytes % 7.2 %; Neutrophils # 6.7 K/mcL (1.6-8.9); Platelet Count 203 K/mcL (140-400); Red Blood Count 3.76 M/mcL (3.82-4.97); Red Cell Distribution Width 20.9 % (11.5-14.5); Segmented Neutrophils % 82.4 %; White Blood Count 8.1 K/mcL (4.3-11.1)
[2020-02-25 16:14] LABS: INR 3.9
[2020-02-25 16:16] LABS: Activated Partial Thrombo Time 32.9 Seconds (26.0-36.0)
[2020-02-25 16:21] LABS: Prothrombin Time 44.4 Seconds (9.4-12.1)
[2020-02-25 16:28] LABS: Anisocytosis 2+ (Not Present); Hypochromasia Present (Not Present); Macrocytosis Present (Not Present); Microcytosis Present (Not Present); Ovalocytes 1+ (Not Present); Platelet Estimate Normal (Normal); Poikilocytosis 2+ (Not Present); Polychromasia 1+ (Not Present)
[2020-02-25 16:29] LABS: Tear Drop Cells 1+ (Not Present)
[2020-02-25 16:33] LABS: Alanine Aminotransferase 38 Units/L (7-52); Albumin 3.6 g/dL (3.5-5.7); Albumin/Globulin Ratio 1.1 (1.1-2.2); Alkaline Phosphatase 84 Units/L (34-104); Aspartate Amino Transferase 41 Units/L (13-39); BUN/Creatinine Ratio 18 (6-26); Bilirubin,Direct 0.4 mg/dL (0.0-0.2); Bilirubin,Indirect 0.6 mg/dL (0.0-1.0); Blood Urea Nitrogen 19 mg/dL (8-23); Calcium 8.7 mg/dL (8.6-10.3); Carbon Dioxide 27 mEq/L (23-29); Chloride 99 mEq/L (98-107); Globulin 3.2 g/dL (2.4-3.5); Glucose 165 mg/dL (70-105); Magnesium 1.3 mg/dL (1.6-2.6); Osmolality,Calculated 292 (280-300); Phosphorous 3.1 mg/dL (2.7-4.5); Potassium 3.6 mEq/L (3.5-5.1); Sodium 138 mEq/L (136-145); Total Protein 6.8 g/dL (6.4-8.9); Troponin I 0.03 ng/mL (< 0.04); eGFR For African Americans > 60 (> 60); eGFR For Non-African Americans 52 (> 60)
[2020-02-25 17:11] LABS: ABG Base Excess 6 mEq/L (-2 to 3); ABG HCO3 31 mEq/L (21-27); ABG Oxygen Saturation 89 % (95-98); ABG PCO2 47 mmHg (35-45); ABG PH 7.43 pH Units (7.32-7.45); ABG PO2 57 mmHg (85-104); ABG TCO2 33 mEq/L (20-26)
[2020-02-25 17:15] LABS: Bilirubin,Urine Negative (Negative); Blood,Urine Negative (Negative); Clarity,Urine Clear (Clear); Color,Urine Yellow (Yellow); Glucose,Urine (UA) Normal (Normal); Ketones,Urine Negative (Negative); Leukocyte Esterase,Urine Negative (Negative); Nitrite,Urine Negative (Negative); Protein,Urine Negative (Neg-Trace); Specific Gravity,Urine 1.014 (1.010-1.025); Urobilinogen,Urine Normal (Normal)
[2020-02-25] MEDS ORDERED: Piperacillin/Tazobactam 3.375 GM in 0.9 % Sodium Chloride Mini Bag 100 ML IVPB ONE (17:33)
[2020-02-25] MEDS ORDERED: Furosemide 40 MG/4 ML VIAL IVP ONE (17:33)
[2020-02-25 20:53] LABS: Adenovirus Not Detected (Not Detect); Bordetella Pertussis Not Detected (Not Detect); Chlamydophila pneumoniae Not Detected (Not Detect); Coronavirus 229E Not Detected (Not Detect); Coronavirus HKU1 Not Detected (Not Detect); Coronavirus NL63 Not Detected (Not Detect); Coronavirus OC43 Not Detected (Not Detect); Human Metapneumovirus DETECTED (Not Detect); Human Rhinovirus/Enterovirus Not Detected (Not Detect); Influenza A Subtype 2009 H1 Not Detected (Not Detect); Influenza B Not Detected (Not Detect); Mycoplasma pneumoniae Not Detected (Not Detect); Parainfluenza Virus 1 Not Detected (Not Detect); Parainfluenza Virus 2 Not Detected (Not Detect); Parainfluenza Virus 3 Not Detected (Not Detect); Parainfluenza Virus 4 Not Detected (Not Detect); Respiratory Syncytial Virus Not Detected (Not Detect)
[2020-02-25] MEDS ORDERED: Naloxone 0.4 MG/ML INJ IVP PRN (23:08)
[2020-02-25] MEDS ORDERED: Albuterol 2.5 MG/3 ML NEBULIZER IH PRN (23:08)
[2020-02-25] MEDS ORDERED: *HR* Dextrose 50 % in Water (Syg) 50 ML SYRINGE IVP PRN (23:08)
[2020-02-25] MEDS ORDERED: Dextrose Gel 15 GM/37.5 ML TUBE PO PRN ×2 (23:08)
[2020-02-25] MEDS ORDERED: D5% in Water 1,000 ML IVC PRN (23:08)
[2020-02-26] MEDS ORDERED: Levalbuterol Neb 0.63 MG/3 ML IH PRN (00:13)
[2020-02-26] MEDS ORDERED: MethylPREDNISolone 40 MG/ML VIAL IVP ONE (00:15)
[2020-02-26] MEDS ORDERED: Gabapentin 300 MG CAPSULE PO PRN (00:16)
[2020-02-26] MEDS ORDERED: Levalbuterol 1 PUFF INHALER IH PRN (00:19)
[2020-02-26] MEDS: Ipratropium/Albuterol Neb 3 ML IH SCH ×3 (00:27→00:29)
[2020-02-26] MEDS: Apixaban 5 MG TABLET PO SCH ×3 (00:38→22:08)
[2020-02-26] MEDS: Insulin LISPRO 300 UNITS/3 ML VIAL SQ SCH ×5 (01:10→22:47)
[2020-02-26] MEDS: Insulin DETEMIR 100 UNIT/ML X5UNITS SQ SCH ×2 (01:50→22:04)
[2020-02-26 02:53] LABS: Basophils % 0.1 %; Eosinophils % 0.2 %; Mean Corpuscular Hemoglobin 22.5 pg (28.0-33.3)
[2020-02-26 02:54] LABS: Hematocrit 30.1 % (35.3-44.9); Hemoglobin 8.4 g/dL (11.5-15.4); Immature Granulocytes % 0.5 % (0-4); Lymphocytes # 0.7 K/mcL (0.6-4.6); Lymphocytes % 6.3 %; Mean Corpuscular HGB Conc 27.9 g/dL (31.6-35.5); Mean Corpuscular Volume 80.7 fL (83.0-100.0); Mean Platelet Volume 10.5 fL (9.4-12.4); Monocytes # 0.4 K/mcL (0.0-1.3); Monocytes % 3.4 %; Neutrophils # 9.3 K/mcL (1.6-8.9); Nucleated Red Blood Cells 0.2 /100 WBC (0); Platelet Count 192 K/mcL (140-400); Red Blood Count 3.73 M/mcL (3.82-4.97); Segmented Neutrophils % 89.5 %; White Blood Count 10.4 K/mcL (4.3-11.1)
[2020-02-26 02:56] LABS: Anisocytosis 2+ (Not Present); Hypochromasia Present (Not Present); Platelet Estimate Normal (Normal); Poikilocytosis 2+ (Not Present); Polychromasia 1+ (Not Present)
[2020-02-26 03:12] LABS: BUN/Creatinine Ratio 16 (6-26); Blood Urea Nitrogen 17 mg/dL (8-23); Calcium 8.7 mg/dL (8.6-10.3); Carbon Dioxide 28 mEq/L (23-29); Chloride 97 mEq/L (98-107); Glucose 153 mg/dL (70-105); Magnesium 1.7 mg/dL (1.6-2.6); Osmolality,Calculated 285 (280-300); Phosphorous 2.5 mg/dL (2.7-4.5); Potassium 3.3 mEq/L (3.5-5.1); Sodium 135 mEq/L (136-145); eGFR For African Americans > 60 (> 60); eGFR For Non-African Americans 51 (> 60)
[2020-02-26] MEDS ORDERED: Benzonatate 100 MG CAPSULE PO PRN (06:33)
[2020-02-26] MEDS: Ipratropium 1 PUFF INHALER IH SCH ×4 (06:52→22:09)
[2020-02-26] MEDS: predniSONE 20 MG TABLET PO SCH (08:00)
[2020-02-26] MEDS: Metoprolol XL (24 HR) Succ 50 MG TAB.ER.24H PO SCH ×2 (08:02→21:55)
[2020-02-26] MEDS ORDERED: Furosemide 40 MG/4 ML VIAL IVP SCH (09:00)
[2020-02-26] MEDS: Torsemide 20 MG TABLET PO SCH (18:25)
[2020-02-26] MEDS ORDERED: Insulin LISPRO 300 UNITS/3 ML VIAL SQ SCH (21:45)
[2020-02-27] MEDS ORDERED: cefTRIAXone 1,000 MG in Water for inj. (sterile) 10 ML IVP SCH (00:01)
[2020-02-27 02:36] LABS: Hemoglobin 8.4 g/dL (11.5-15.4); Mean Corpuscular Hemoglobin 23.1 pg (28.0-33.3); Mean Corpuscular Volume 82.4 fL (83.0-100.0); Mean Platelet Volume 9.9 fL (9.4-12.4); Platelet Count 204 K/mcL (140-400); Red Blood Count 3.64 M/mcL (3.82-4.97); Red Cell Distribution Width 20.9 % (11.5-14.5); White Blood Count 11.2 K/mcL (4.3-11.1)
[2020-02-27 02:59] LABS: Calcium 8.8 mg/dL (8.6-10.3); Magnesium 1.9 mg/dL (1.6-2.6); Phosphorous 2.7 mg/dL (2.7-4.5); Potassium 4.1 mEq/L (3.5-5.1); Troponin I 0.03 ng/mL (< 0.04)
[2020-02-27] MEDS: Ipratropium 1 PUFF INHALER IH SCH ×4 (06:16→22:21)
[2020-02-27] MEDS: Metoprolol XL (24 HR) Succ 50 MG TAB.ER.24H PO SCH ×2 (08:05→21:45)
[2020-02-27] MEDS: predniSONE 20 MG TABLET PO SCH (08:06)
[2020-02-27] MEDS: Torsemide 20 MG TABLET PO SCH ×2 (08:06→18:08)
[2020-02-27] MEDS: polyethylene glycoL 3350 17 GM POWD.PACK PO SCH (08:07)
[2020-02-27] MEDS: Apixaban 5 MG TABLET PO SCH ×2 (08:07→21:43)
[2020-02-27] MEDS: Insulin LISPRO 300 UNITS/3 ML VIAL SQ SCH ×4 (08:25→21:43)
[2020-02-27] MEDS ORDERED: Azithromycin 250 MG TABLET PO SCH (09:00)
[2020-02-27] MEDS: *HR* OxyCODONE/APAP 5/325 TABLET PO PRN (11:09)
[2020-02-27] MEDS: ALPRAZolam 0.5 MG TABLET PO PRN ×2 (12:00→21:45)
[2020-02-27] MEDS: Insulin DETEMIR 100 UNIT/ML X5UNITS SQ SCH (22:33)
[2020-02-28] MEDS: Ipratropium 1 PUFF INHALER IH SCH ×3 (04:01→15:45)
[2020-02-28 05:03] LABS: Hemoglobin 8.1 g/dL (11.5-15.4); Mean Platelet Volume 10.6 fL (9.4-12.4); Red Cell Distribution Width 20.6 % (11.5-14.5)
[2020-02-28 05:04] LABS: Hematocrit 29.1 % (35.3-44.9); Mean Corpuscular HGB Conc 27.8 g/dL (31.6-35.5); Mean Corpuscular Hemoglobin 22.6 pg (28.0-33.3); Mean Corpuscular Volume 81.3 fL (83.0-100.0); Platelet Count 240 K/mcL (140-400); Red Blood Count 3.58 M/mcL (3.82-4.97)
[2020-02-28 05:22] LABS: BUN/Creatinine Ratio 24 (6-26); Blood Urea Nitrogen 25 mg/dL (8-23); Calcium 8.9 mg/dL (8.6-10.3); Carbon Dioxide 30 mEq/L (23-29); Chloride 101 mEq/L (98-107); Glucose 209 mg/dL (70-105); Magnesium 1.7 mg/dL (1.6-2.6); Osmolality,Calculated 297 (280-300); Potassium 3.9 mEq/L (3.5-5.1); Sodium 138 mEq/L (136-145); eGFR For African Americans > 60 (> 60); eGFR For Non-African Americans 52 (> 60)
[2020-02-28] MEDS: polyethylene glycoL 3350 17 GM POWD.PACK PO SCH (08:16)
[2020-02-28] MEDS: predniSONE 20 MG TABLET PO SCH (08:16)
[2020-02-28] MEDS: Apixaban 5 MG TABLET PO SCH (08:16)
[2020-02-28] MEDS: Torsemide 20 MG TABLET PO SCH (08:17)
[2020-02-28] MEDS: Metoprolol XL (24 HR) Succ 50 MG TAB.ER.24H PO SCH (08:17)
[2020-02-28] MEDS: Insulin LISPRO 300 UNITS/3 ML VIAL SQ SCH ×2 (08:18→11:45)
[2020-02-28 11:32] VITALS: BP 101/69
[2020-02-28] MEDS: *HR* OxyCODONE/APAP 5/325 TABLET PO PRN (11:45)
== END 2020-02-28 15:51 | disposition home or self-care (01) ==
LOC: EMEROOARM 15:32 → 2NNU 15:32 → SUATTDRO 19:52 → 2NNU 20:45 → 2ANU 02-27 17:51
PROVIDERS: ADMIT Family Medicine; ATTEND Internal Medicine

== ENCOUNTER 2020-04-06 14:01 | Inpatient (IN) ==
[2020-04-06] MEDS ORDERED: 0.9 % Sodium Chloride 1,000 ML IVC ONE (14:21)
[2020-04-06] MEDS ORDERED: methylPREDNISolone 125 MG/2 ML VIAL IVP ONE (14:23)
[2020-04-06] MEDS ORDERED: Ipratropium/Albuterol Neb 3 ML IH ONE (14:23)
[2020-04-06 14:38] LABS: Basophils % 0.1 %; Mean Platelet Volume 9.6 fL (9.4-12.4); Platelet Count 244 K/mcL (140-400)
[2020-04-06 14:39] LABS: Eosinophils # 0.1 K/mcL (0.0-0.6); Eosinophils % 0.6 %; Hemoglobin 9.6 g/dL (11.5-15.4); Immature Granulocytes % 0.5 % (0-4); Lymphocytes # 0.9 K/mcL (0.6-4.6); Lymphocytes % 9.4 %; Mean Corpuscular HGB Conc 27.4 g/dL (31.6-35.5); Mean Corpuscular Hemoglobin 22.3 pg (28.0-33.3); Mean Corpuscular Volume 81.2 fL (83.0-100.0); Monocytes # 0.9 K/mcL (0.0-1.3); Monocytes % 9.3 %; Red Blood Count 4.31 M/mcL (3.82-4.97); Red Cell Distribution Width 26.1 % (11.5-14.5); Segmented Neutrophils % 80.1 %; White Blood Count 9.6 K/mcL (4.3-11.1)
[2020-04-06 14:43] LABS: Neutrophils # 7.7 K/mcL (1.6-8.9)
[2020-04-06] MEDS ORDERED: Azithromycin 500 MG in 0.9 % Sodium Chloride 250 ML IVPB ONE (15:03)
[2020-04-06 15:06] LABS: Alanine Aminotransferase 7 Units/L (7-52); Albumin 3.7 g/dL (3.5-5.7); Albumin/Globulin Ratio 1.2 (1.1-2.2); Alkaline Phosphatase 74 Units/L (34-104); Aspartate Amino Transferase 16 Units/L (13-39); BUN/Creatinine Ratio 17 (6-26); Bilirubin,Direct 0.5 mg/dL (0.0-0.2); Bilirubin,Total 1.5 mg/dL (0.3-1.0); Blood Urea Nitrogen 15 mg/dL (8-23); Calcium 9.6 mg/dL (8.6-10.3); Carbon Dioxide 33 mEq/L (23-29); Chloride 102 mEq/L (98-107); Globulin 3.2 g/dL (2.4-3.5); Glucose 153 mg/dL (70-105); Lipase 12 Units/L (11-82); Osmolality,Calculated 294 (280-300); Potassium 3.6 mEq/L (3.5-5.1); Sodium 140 mEq/L (136-145); Total Protein 6.9 g/dL (6.4-8.9); Troponin I 0.04 ng/mL (< 0.04); eGFR For African Americans > 60 (> 60); eGFR For Non-African Americans > 60 (> 60)
[2020-04-06] MEDS ORDERED: cefTRIAXone 2,000 MG in Water for inj. (sterile) 20 ML IVP ONE (15:07)
[2020-04-06 15:10] LABS: Hypochromasia Present (Not Present); Ovalocytes 1+ (Not Present); Platelet Estimate Normal (Normal); Poikilocytosis 1+ (Not Present); Polychromasia 1+ (Not Present)
[2020-04-06 15:11] LABS: Anisocytosis 3+ (Not Present)
[2020-04-06] MEDS ORDERED: Water for inj. (sterile) 20 ML IV ONE (15:15)
[2020-04-06] MEDS ORDERED: Azithromycin 500 MG VIAL ONE (15:15)
[2020-04-06] MEDS ORDERED: Aspirin 81 MG TAB.CHEW PO STA (15:19)
[2020-04-06 16:02] LABS: Bilirubin,Urine Small (Negative); Blood,Urine Negative (Negative); Clarity,Urine Clear (Clear); Color,Urine Dark Yellow (Yellow); Glucose,Urine (UA) Normal (Normal); Ketones,Urine Negative (Negative); Leukocyte Esterase,Urine Small (Negative); Nitrite,Urine Negative (Negative); Protein,Urine 100 mg/dL (Neg-Trace); Specific Gravity,Urine 1.019 (1.010-1.025)
[2020-04-06 16:03] LABS: Bacteria,Urine None Seen per hpf (None-Few); Hyaline Casts,Urine None Seen per lpf (None-Few); RBC,Urine 0-3 per hpf (0-3); Squamous Epithelial Cell,Urine Many per lpf (None-Few)
[2020-04-06 16:37] LABS: INR 2.6; Prothrombin Time 30.1 Seconds (9.4-12.1)
[2020-04-06 16:37] LABS: VBG HCO3 31 mEq/L (21-27); VBG PCO2 58 mmHg (41-51); VBG PH 7.33 pH Units (7.32-7.42); VBG PO2 162 mmHg (25-50)
[2020-04-06 16:40] LABS: Activated Partial Thrombo Time 34.1 Seconds (26.0-36.0)
[2020-04-06] MEDS ORDERED: *HR* HYDROcodone/Acet 5/325 mg TABLET PO PRN (18:35)
[2020-04-06] MEDS ORDERED: Ondansetron ODT 4 MG TAB.RAPDIS SL PRN (18:35)
[2020-04-06] MEDS ORDERED: MOM Conc 10 ML UD.LIQ PO PRN (18:35)
[2020-04-06] MEDS ORDERED: Acetaminophen 325 MG TABLET PO PRN (18:35)
[2020-04-06] MEDS ORDERED: Naloxone 0.4 MG/ML INJ IVP PRN (18:35)
[2020-04-06] MEDS ORDERED: Mag Hydrox/Al Hydrox/Simeth 30 ML UDC PO PRN (18:35)
[2020-04-06] MEDS ORDERED: *HR* Dextrose 50 % in Water (Syg) 50 ML SYRINGE IVP PRN (18:43)
[2020-04-06] MEDS ORDERED: Dextrose Gel 15 GM/37.5 ML TUBE PO PRN ×2 (18:43)
[2020-04-06] MEDS ORDERED: D5% in Water 1,000 ML IVC PRN (18:43)
[2020-04-06] MEDS ORDERED: Ondansetron ODT 4 MG TAB.RAPDIS PO PRN (20:09)
[2020-04-06] MEDS ORDERED: Torsemide 20 MG TABLET PO SCH (21:00)
[2020-04-06] MEDS ORDERED: Vancomycin 1,500 MG/265 ML IV.SOLN IVPB ONE (21:51)
[2020-04-06] MEDS: Insulin LISPRO 300 UNITS/3 ML VIAL SQ SCH (23:43)
[2020-04-06] MEDS: Insulin DETEMIR 100 UNIT/ML X5UNITS SQ SCH (23:45)
[2020-04-06] MEDS: Piperacillin/Tazobactam 3.375 GM in 0.9 % Sodium Chloride Mini Bag 100 ML IVPB SCH (23:45)
[2020-04-06] MEDS: Ondansetron ODT 4 MG TAB.RAPDIS SL SCH (23:46)
[2020-04-06] MEDS: Gabapentin 300 MG CAPSULE PO SCH (23:46)
[2020-04-06] MEDS: Ranolazine 500 MG TAB.ER.12H PO SCH (23:46)
[2020-04-06] MEDS: tiZANidine 4 MG TABLET PO SCH (23:47)
[2020-04-06] MEDS: ALPRAZolam 0.5 MG TABLET PO SCH (23:47)
[2020-04-06] MEDS: Metoprolol XL (24 HR) Succ 50 MG TAB.ER.24H PO SCH (23:47)
[2020-04-06] MEDS: Apixaban 5 MG TABLET PO SCH (23:47)
[2020-04-07 02:08] LABS: Mean Corpuscular Volume 82.5 fL (83.0-100.0)
[2020-04-07 02:09] LABS: Hematocrit 36.4 % (35.3-44.9); Hemoglobin 9.8 g/dL (11.5-15.4); Mean Corpuscular HGB Conc 26.9 g/dL (31.6-35.5); Mean Corpuscular Hemoglobin 22.2 pg (28.0-33.3); Mean Platelet Volume 9.8 fL (9.4-12.4); Platelet Count 234 K/mcL (140-400); Red Blood Count 4.41 M/mcL (3.82-4.97); White Blood Count 9.1 K/mcL (4.3-11.1)
[2020-04-07 02:17] LABS: BUN/Creatinine Ratio 23 (6-26); Blood Urea Nitrogen 19 mg/dL (8-23); Calcium 8.9 mg/dL (8.6-10.3); Carbon Dioxide 27 mEq/L (23-29); Chloride 105 mEq/L (98-107); Glucose 217 mg/dL (70-105); Magnesium 1.8 mg/dL (1.6-2.6); Osmolality,Calculated 303 (280-300); Potassium 3.6 mEq/L (3.5-5.1); Sodium 142 mEq/L (136-145); eGFR For African Americans > 60 (> 60); eGFR For Non-African Americans > 60 (> 60)
[2020-04-07] MEDS: Budesonide/Formoterol 80/4.5 1 PUFF INH IH SCH ×2 (07:34→19:36)
[2020-04-07] MEDS: Insulin LISPRO 300 UNITS/3 ML VIAL SQ SCH ×7 (08:26→21:13)
[2020-04-07] MEDS: Piperacillin/Tazobactam 3.375 GM in 0.9 % Sodium Chloride Mini Bag 100 ML IVPB SCH ×2 (08:27→16:11)
[2020-04-07] MEDS: Lactulose Oral Soln 20 GM/30 ML UDC PO SCH ×3 (08:28→21:13)
[2020-04-07] MEDS: Apixaban 5 MG TABLET PO SCH ×2 (08:29→21:13)
[2020-04-07] MEDS: Gabapentin 300 MG CAPSULE PO SCH ×3 (08:29→21:12)
[2020-04-07] MEDS: ALPRAZolam 0.5 MG TABLET PO SCH ×3 (08:29→21:12)
[2020-04-07] MEDS: tiZANidine 4 MG TABLET PO SCH ×2 (08:30→16:12)
[2020-04-07] MEDS: Ondansetron ODT 4 MG TAB.RAPDIS SL SCH ×2 (08:30→21:13)
[2020-04-07] MEDS: Metoprolol XL (24 HR) Succ 50 MG TAB.ER.24H PO SCH ×2 (08:30→21:13)
[2020-04-07] MEDS: polyethylene glycoL 3350 17 GM POWD.PACK PO SCH (08:30)
[2020-04-07] MEDS: Ranolazine 500 MG TAB.ER.12H PO SCH ×2 (08:30→21:13)
[2020-04-07] MEDS ORDERED: Torsemide 20 MG TABLET PO SCH (09:00)
[2020-04-07 11:01] LABS: ABG Base Excess 4 mEq/L (-2 to 3); ABG HCO3 29 mEq/L (21-27); ABG Oxygen Saturation 98 % (95-98); ABG PCO2 42 mmHg (35-45); ABG PH 7.44 pH Units (7.32-7.45); ABG PO2 93 mmHg (85-104); ABG TCO2 30 mEq/L (20-26)
[2020-04-07] MEDS: Insulin DETEMIR 100 UNIT/ML X5UNITS SQ SCH (21:15)
[2020-04-08] MEDS: Piperacillin/Tazobactam 3.375 GM in 0.9 % Sodium Chloride Mini Bag 100 ML IVPB SCH ×4 (01:08→23:27)
[2020-04-08 01:17] LABS: Hemoglobin 9.1 g/dL (11.5-15.4); Red Cell Distribution Width 25.9 % (11.5-14.5)
[2020-04-08 01:18] LABS: Hematocrit 33.4 % (35.3-44.9); Mean Corpuscular HGB Conc 27.2 g/dL (31.6-35.5); Mean Corpuscular Hemoglobin 22.9 pg (28.0-33.3); Mean Corpuscular Volume 83.9 fL (83.0-100.0); Mean Platelet Volume 9.6 fL (9.4-12.4); Platelet Count 208 K/mcL (140-400); Red Blood Count 3.98 M/mcL (3.82-4.97); White Blood Count 8.6 K/mcL (4.3-11.1)
[2020-04-08 01:36] LABS: Calcium 8.8 mg/dL (8.6-10.3); Potassium 3.4 mEq/L (3.5-5.1)
[2020-04-08] MEDS: Budesonide/Formoterol 80/4.5 1 PUFF INH IH SCH ×2 (07:37→21:57)
[2020-04-08] MEDS: Insulin LISPRO 300 UNITS/3 ML VIAL SQ SCH ×7 (08:16→21:33)
[2020-04-08] MEDS: ALPRAZolam 0.5 MG TABLET PO SCH (08:24)
[2020-04-08] MEDS: polyethylene glycoL 3350 17 GM POWD.PACK PO SCH (08:24)
[2020-04-08] MEDS: Ranolazine 500 MG TAB.ER.12H PO SCH ×2 (08:25→21:32)
[2020-04-08] MEDS: Metoprolol XL (24 HR) Succ 50 MG TAB.ER.24H PO SCH ×2 (08:25→21:32)
[2020-04-08] MEDS: Ondansetron ODT 4 MG TAB.RAPDIS SL SCH ×2 (08:25→21:32)
[2020-04-08] MEDS: Gabapentin 300 MG CAPSULE PO SCH (08:26)
[2020-04-08] MEDS: Torsemide 20 MG TABLET PO SCH ×2 (08:26→16:51)
[2020-04-08] MEDS: Apixaban 5 MG TABLET PO SCH ×2 (08:26→21:32)
[2020-04-08] MEDS: Lactulose Oral Soln 20 GM/30 ML UDC PO SCH ×3 (08:27→21:33)
[2020-04-08] MEDS ORDERED: Potassium Chloride Elixir 20 MEQ/15 ML UDC PO ONE (11:56)
[2020-04-08] MEDS: Levalbuterol Neb 0.63 MG/3 ML IH SCH ×2 (15:26→21:58)
[2020-04-08 16:28] LABS: Acinetobacter baumannii by PCR Not Detected (Not Detect); Candida albicans by PCR Not Detected (Not Detect); Candida glabrata by PCR Not Detected (Not Detect); Candida krusei by PCR Not Detected (Not Detect); Candida parapsilosis by PCR Not Detected (Not Detect); Candida tropicalis by PCR Not Detected (Not Detect); Enterobacter cloacae Cmplx PCR Not Detected (Not Detect); Enterobacteriaceae by PCR Not Detected (Not Detect); Enterococcus by PCR Not Detected (Not Detect); Escherichia coli by PCR Not Detected (Not Detect); Klebsiella oxytoca by PCR Not Detected (Not Detect); Klebsiella pneumoniae by PCR Not Detected (Not Detect); Proteus by PCR Not Detected (Not Detect); Pseudomonas aeruginosa by PCR Not Detected (Not Detect); Serratia marcescens by PCR Not Detected (Not Detect); Staphylococcus aureus by PCR Not Detected (Not Detect); Staphylococcus by PCR Not Detected (Not Detect); Streptococcus agalactiae(B)PCR Not Detected (Not Detect); Streptococcus by PCR Not Detected (Not Detect); Streptococcus pneumoniae PCR Not Detected (Not Detect); Streptococcus pyogenes (A) PCR Not Detected (Not Detect)
[2020-04-08] MEDS: ALPRAZolam 0.5 MG TABLET PO PRN (21:32)
[2020-04-08] MEDS: Insulin DETEMIR 100 UNIT/ML X5UNITS SQ SCH (21:33)
[2020-04-08] MEDS: Vancomycin 1,250 MG/262.5 ML IV.SOLN IVPB SCH (21:39)
[2020-04-09] MEDS: Levalbuterol Neb 0.63 MG/3 ML IH SCH ×4 (03:20→21:27)
[2020-04-09 04:16] LABS: Basophils % 0.3 %
[2020-04-09 04:17] LABS: Eosinophils # 0.2 K/mcL (0.0-0.6); Eosinophils % 3.1 %; Hematocrit 35.6 % (35.3-44.9); Hemoglobin 9.8 g/dL (11.5-15.4); Immature Granulocytes % 0.6 % (0-4); Lymphocytes # 1.4 K/mcL (0.6-4.6); Lymphocytes % 21.1 %; Mean Corpuscular HGB Conc 27.5 g/dL (31.6-35.5); Mean Corpuscular Hemoglobin 22.5 pg (28.0-33.3); Mean Corpuscular Volume 81.8 fL (83.0-100.0); Mean Platelet Volume 9.2 fL (9.4-12.4); Monocytes # 0.7 K/mcL (0.0-1.3); Monocytes % 10.1 %; Neutrophils # 4.2 K/mcL (1.6-8.9); Platelet Count 207 K/mcL (140-400); Red Blood Count 4.35 M/mcL (3.82-4.97); Red Cell Distribution Width 25.7 % (11.5-14.5); Segmented Neutrophils % 64.8 %; White Blood Count 6.4 K/mcL (4.3-11.1)
[2020-04-09 04:35] LABS: Calcium 8.5 mg/dL (8.6-10.3); Magnesium 1.4 mg/dL (1.6-2.6); Potassium 3.8 mEq/L (3.5-5.1)
[2020-04-09 05:20] LABS: Hypochromasia Present (Not Present)
[2020-04-09 05:21] LABS: Anisocytosis 3+ (Not Present); Platelet Estimate Normal (Normal)
[2020-04-09] MEDS: Insulin LISPRO 300 UNITS/3 ML VIAL SQ SCH ×7 (08:00→20:58)
[2020-04-09] MEDS: Budesonide/Formoterol 80/4.5 1 PUFF INH IH SCH ×2 (10:50→21:27)
[2020-04-09] MEDS: Torsemide 20 MG TABLET PO SCH ×2 (11:02→16:56)
[2020-04-09] MEDS: Ondansetron ODT 4 MG TAB.RAPDIS SL SCH ×2 (11:02→21:05)
[2020-04-09] MEDS: Ranolazine 500 MG TAB.ER.12H PO SCH ×2 (11:03→21:05)
[2020-04-09] MEDS: Lactulose Oral Soln 20 GM/30 ML UDC PO SCH ×3 (11:03→21:07)
[2020-04-09] MEDS: Metoprolol XL (24 HR) Succ 50 MG TAB.ER.24H PO SCH ×2 (11:03→21:05)
[2020-04-09] MEDS: Piperacillin/Tazobactam 3.375 GM in 0.9 % Sodium Chloride Mini Bag 100 ML IVPB SCH ×3 (11:04→23:44)
[2020-04-09] MEDS: polyethylene glycoL 3350 17 GM POWD.PACK PO SCH (11:04)
[2020-04-09] MEDS: Apixaban 5 MG TABLET PO SCH ×2 (13:07→21:05)
[2020-04-09] MEDS: ALPRAZolam 0.5 MG TABLET PO PRN ×2 (15:23→22:19)
[2020-04-09] MEDS: Insulin DETEMIR 100 UNIT/ML X5UNITS SQ SCH (21:06)
[2020-04-09] MEDS: Vancomycin 1,250 MG/262.5 ML IV.SOLN IVPB SCH (21:06)
[2020-04-10] MEDS: Levalbuterol Neb 0.63 MG/3 ML IH SCH ×4 (03:56→21:48)
[2020-04-10 04:19] LABS: Hemoglobin 9.9 g/dL (11.5-15.4)
[2020-04-10 04:20] LABS: Basophils % 0.4 %; Eosinophils # 0.1 K/mcL (0.0-0.6); Eosinophils % 2.5 %; Hematocrit 36.3 % (35.3-44.9); Immature Granulocytes % 0.4 % (0-4); Lymphocytes # 1.2 K/mcL (0.6-4.6); Lymphocytes % 21.2 %; Mean Corpuscular HGB Conc 27.3 g/dL (31.6-35.5); Mean Corpuscular Hemoglobin 22.6 pg (28.0-33.3); Mean Corpuscular Volume 82.7 fL (83.0-100.0); Mean Platelet Volume 9.1 fL (9.4-12.4); Monocytes # 0.6 K/mcL (0.0-1.3); Monocytes % 11.3 %; Neutrophils # 3.5 K/mcL (1.6-8.9); Platelet Count 223 K/mcL (140-400); Red Blood Count 4.39 M/mcL (3.82-4.97); Red Cell Distribution Width 25.3 % (11.5-14.5); Segmented Neutrophils % 64.2 %; White Blood Count 5.5 K/mcL (4.3-11.1)
[2020-04-10 04:32] LABS: Calcium 8.5 mg/dL (8.6-10.3); Potassium 3.4 mEq/L (3.5-5.1)
[2020-04-10 05:05] LABS: Anisocytosis 2+ (Not Present); Hypochromasia Present (Not Present); Platelet Estimate Normal (Normal)
[2020-04-10] MEDS: Insulin LISPRO 300 UNITS/3 ML VIAL SQ SCH ×7 (07:38→21:36)
[2020-04-10] MEDS: Torsemide 20 MG TABLET PO SCH ×2 (09:07→16:29)
[2020-04-10] MEDS: Metoprolol XL (24 HR) Succ 50 MG TAB.ER.24H PO SCH ×2 (09:07→21:31)
[2020-04-10] MEDS: Piperacillin/Tazobactam 3.375 GM in 0.9 % Sodium Chloride Mini Bag 100 ML IVPB SCH ×2 (09:08→16:29)
[2020-04-10] MEDS: Apixaban 5 MG TABLET PO SCH ×2 (09:08→21:33)
[2020-04-10] MEDS: Lactulose Oral Soln 20 GM/30 ML UDC PO SCH ×3 (09:08→21:31)
[2020-04-10] MEDS: Ondansetron ODT 4 MG TAB.RAPDIS SL SCH ×2 (09:08→21:35)
[2020-04-10] MEDS: Ranolazine 500 MG TAB.ER.12H PO SCH ×2 (09:08→21:31)
[2020-04-10] MEDS: polyethylene glycoL 3350 17 GM POWD.PACK PO SCH (09:09)
[2020-04-10] MEDS: Budesonide/Formoterol 80/4.5 1 PUFF INH IH SCH ×2 (10:01→21:48)
[2020-04-10] MEDS: ALPRAZolam 0.5 MG TABLET PO PRN ×2 (14:41→22:45)
[2020-04-10] MEDS: Insulin DETEMIR 100 UNIT/ML X5UNITS SQ SCH (21:37)
[2020-04-10] MEDS: Vancomycin 1,250 MG/262.5 ML IV.SOLN IVPB SCH (22:42)
[2020-04-11] MEDS: Piperacillin/Tazobactam 3.375 GM in 0.9 % Sodium Chloride Mini Bag 100 ML IVPB SCH ×2 (00:46→07:35)
[2020-04-11] MEDS: Levalbuterol Neb 0.63 MG/3 ML IH SCH ×2 (04:22→10:30)
[2020-04-11 06:56] VITALS: BP 127/97
[2020-04-11] MEDS: Insulin LISPRO 300 UNITS/3 ML VIAL SQ SCH ×2 (07:11)
[2020-04-11] MEDS: Ranolazine 500 MG TAB.ER.12H PO SCH (07:34)
[2020-04-11] MEDS: Ondansetron ODT 4 MG TAB.RAPDIS SL SCH (07:34)
[2020-04-11] MEDS: Lactulose Oral Soln 20 GM/30 ML UDC PO SCH (07:34)
[2020-04-11] MEDS: Apixaban 5 MG TABLET PO SCH (07:35)
[2020-04-11] MEDS: Metoprolol XL (24 HR) Succ 50 MG TAB.ER.24H PO SCH (07:35)
[2020-04-11] MEDS: Torsemide 20 MG TABLET PO SCH (07:35)
[2020-04-11] MEDS: polyethylene glycoL 3350 17 GM POWD.PACK PO SCH (07:36)
[2020-04-11] MEDS: Budesonide/Formoterol 80/4.5 1 PUFF INH IH SCH (10:29)
[2020-04-11] MEDS: ALPRAZolam 0.5 MG TABLET PO PRN (11:01)
[2020-04-11] MEDS ORDERED: Aminoglycoside Consult 1 EACH MC ONE (12:39)
== END 2020-04-11 12:40 | disposition home health service (06) | DRG 193 ==
LOC: EMEROOARM 14:01 → 2ANU 14:01 → 2NENU 18:39 → 2ANU 20:20 → SUATTDRO 22:07
PROVIDERS: ADMIT Family Medicine; ATTEND Internal Medicine

== ENCOUNTER 2020-06-21 00:51 | Inpatient (IN) ==
[2020-06-21 01:28] LABS: Basophils % 0.1 %; Eosinophils % 0.1 %; Hematocrit 43.1 % (35.3-44.9); Hemoglobin 13.5 g/dL (11.5-15.4); Immature Granulocytes % 0.4 % (0-4); Lymphocytes # 0.7 K/mcL (0.6-4.6); Lymphocytes % 4.9 %; Mean Corpuscular HGB Conc 31.3 g/dL (31.6-35.5); Mean Corpuscular Hemoglobin 27.2 pg (28.0-33.3); Mean Corpuscular Volume 86.7 fL (83.0-100.0); Mean Platelet Volume 9.7 fL (9.4-12.4); Monocytes # 1.1 K/mcL (0.0-1.3); Monocytes % 7.4 %; Neutrophils # 12.5 K/mcL (1.6-8.9); Platelet Count 195 K/mcL (140-400); Red Blood Count 4.97 M/mcL (3.82-4.97); Red Cell Distribution Width 19.9 % (11.5-14.5); Segmented Neutrophils % 87.1 %; White Blood Count 14.4 K/mcL (4.3-11.1)
[2020-06-21 01:33] LABS: Bacteria,Urine Few per hpf (None-Few); Bilirubin,Urine Negative (Negative); Blood,Urine Small (Negative); Clarity,Urine Turbid (Clear); Color,Urine Yellow (Yellow); Glucose,Urine (UA) Normal (Normal); Ketones,Urine Negative (Negative); Leukocyte Esterase,Urine Large (Negative); Mucus,Urine Few per lpf (None-Few); Nitrite,Urine Positive (Negative); Protein,Urine 30 mg/dL (Neg-Trace); Specific Gravity,Urine 1.011 (1.010-1.025); Squamous Epithelial Cell,Urine Few per hpf (None-Few); Urobilinogen,Urine Normal (Normal); WBC,Urine TNTC per hpf (0-3)
[2020-06-21 01:41] LABS: Alanine Aminotransferase 8 Units/L (7-52); Albumin 3.6 g/dL (3.5-5.7); Alkaline Phosphatase 78 Units/L (34-104); Aspartate Amino Transferase 14 Units/L (13-39); BUN/Creatinine Ratio 24 (6-26); Blood Urea Nitrogen 24 mg/dL (8-23); Calcium 9.8 mg/dL (8.6-10.3); Carbon Dioxide 23 mEq/L (23-29); Chloride 97 mEq/L (98-107); Creatine Kinase 18 Units/L (30-223); Globulin 3.5 g/dL (2.4-3.5); Glucose 185 mg/dL (70-105); Osmolality,Calculated 285 (280-300); Potassium 3.3 mEq/L (3.5-5.1); Sodium 133 mEq/L (136-145); Total Protein 7.1 g/dL (6.4-8.9); eGFR For African Americans > 60 (> 60); eGFR For Non-African Americans 56 (> 60)
[2020-06-21 01:57] LABS: Troponin I 0.05 ng/mL (< 0.04)
[2020-06-21] MEDS ORDERED: Aspirin 81 MG TAB.CHEW PO ONE (02:08)
[2020-06-21 02:21] LABS: Bilirubin,Direct 0.3 mg/dL (0.0-0.2); Bilirubin,Indirect 0.7 mg/dL (0.0-1.0); Lipase 5 Units/L (11-82)
[2020-06-21 02:24] LABS: INR 1.9; Prothrombin Time 21.7 Seconds (9.4-12.1)
[2020-06-21 02:27] LABS: Activated Partial Thrombo Time 31.9 Seconds (26.0-36.0)
[2020-06-21] MEDS ORDERED: 0.9 % Sodium Chloride 500 ML IVC ONE (02:27)
[2020-06-21] MEDS ORDERED: cefTRIAXone 1,000 MG in Water for inj. (sterile) 10 ML IVP ONE (02:27)
[2020-06-21] MEDS ORDERED: 0.9 % Sodium Chloride 1,000 ML IVC ONE ×2 (02:33→04:07)
[2020-06-21] MEDS ORDERED: Isovue-370 500 ML BOTTLE IVP ONE (03:13)
[2020-06-21] MEDS ORDERED: Naloxone 0.4 MG/ML INJ IVP PRN (07:31)
[2020-06-21] MEDS ORDERED: Ondansetron 4 MG/2 ML VIAL IVP PRN (07:31)
[2020-06-21] MEDS ORDERED: D5% in Water 1,000 ML IVC PRN (07:33)
[2020-06-21] MEDS ORDERED: Dextrose Gel 15 GM/37.5 ML TUBE PO PRN ×2 (07:33)
[2020-06-21] MEDS ORDERED: *HR* Dextrose 50 % in Water (Vial) 50 ML VIAL IVP PRN (07:33)
[2020-06-21] MEDS ORDERED: Torsemide 20 MG TABLET PO SCH (09:00)
[2020-06-21] MEDS ORDERED: cefTRIAXone 1,000 MG in Water for inj. (sterile) 10 ML IVP SCH (09:00)
[2020-06-21] MEDS: Insulin DETEMIR 100 UNIT/ML X5UNITS SQ SCH ×2 (09:14→19:57)
[2020-06-21] MEDS: Metoprolol XL (24 HR) Succ 50 MG TAB.ER.24H PO SCH ×2 (09:17→19:57)
[2020-06-21] MEDS: Apixaban 5 MG TABLET PO SCH ×2 (09:17→19:57)
[2020-06-21] MEDS: Ranolazine 500 MG TAB.ER.12H PO SCH ×2 (09:17→19:57)
[2020-06-21] MEDS: ALPRAZolam 0.5 MG TABLET PO SCH ×3 (09:17→21:30)
[2020-06-21] MEDS: Lactulose Oral Soln 20 GM/30 ML UDC PO SCH ×3 (09:18→19:57)
[2020-06-21] MEDS: Insulin LISPRO 300 UNITS/3 ML VIAL SQ SCH ×2 (11:58→17:37)
[2020-06-21] MEDS: Torsemide 20 MG TABLET PO SCH (17:11)
[2020-06-21 17:27] LABS: Enterococcus by PCR Not Detected (Not Detect); Staphylococcus aureus by PCR Not Detected (Not Detect); Staphylococcus by PCR Not Detected (Not Detect); Streptococcus by PCR Not Detected (Not Detect); blaKPC Carbapenem-Resist Gene Not Detected (Not Detect); mecA Methicillin-Resist Gene Not Detected (Not Detect); vanA/B Vancomycin-Resist Genes Not Detected (Not Detect)
[2020-06-21 17:28] LABS: Acinetobacter baumannii by PCR Not Detected (Not Detect); Candida albicans by PCR Not Detected (Not Detect); Candida glabrata by PCR Not Detected (Not Detect); Candida krusei by PCR Not Detected (Not Detect); Candida parapsilosis by PCR Not Detected (Not Detect); Candida tropicalis by PCR Not Detected (Not Detect); Enterobacter cloacae Cmplx PCR Not Detected (Not Detect); Escherichia coli by PCR DETECTED (Not Detect); Klebsiella oxytoca by PCR Not Detected (Not Detect); Klebsiella pneumoniae by PCR Not Detected (Not Detect); Proteus by PCR Not Detected (Not Detect); Pseudomonas aeruginosa by PCR Not Detected (Not Detect); Serratia marcescens by PCR Not Detected (Not Detect); Streptococcus agalactiae(B)PCR Not Detected (Not Detect); Streptococcus pneumoniae PCR Not Detected (Not Detect); Streptococcus pyogenes (A) PCR Not Detected (Not Detect)
[2020-06-21] MEDS ORDERED: Acetaminophen 325 MG TABLET PO PRN (21:06)
[2020-06-22 05:40] LABS: Basophils % 0.2 %; Eosinophils # 0.1 K/mcL (0.0-0.6); Eosinophils % 1.5 %; Hematocrit 41.9 % (35.3-44.9); Immature Granulocytes % 0.4 % (0-4); Lymphocytes # 0.6 K/mcL (0.6-4.6); Lymphocytes % 6.5 %; Mean Corpuscular Hemoglobin 26.5 pg (28.0-33.3); Mean Corpuscular Volume 85.5 fL (83.0-100.0); Mean Platelet Volume 9.9 fL (9.4-12.4); Monocytes # 0.8 K/mcL (0.0-1.3); Monocytes % 8.6 %; Platelet Count 183 K/mcL (140-400); Red Cell Distribution Width 19.9 % (11.5-14.5); Segmented Neutrophils % 82.8 %; White Blood Count 9.6 K/mcL (4.3-11.1)
[2020-06-22 06:12] LABS: BUN/Creatinine Ratio 18 (6-26); Blood Urea Nitrogen 13 mg/dL (8-23); Calcium 9.5 mg/dL (8.6-10.3); Carbon Dioxide 29 mEq/L (23-29); Chloride 99 mEq/L (98-107); Glucose 95 mg/dL (70-105); Magnesium 1.6 mg/dL (1.6-2.6); Osmolality,Calculated 282 (280-300); Phosphorous 3.3 mg/dL (2.7-4.5); Potassium 2.8 mEq/L (3.5-5.1); Sodium 136 mEq/L (136-145); eGFR For African Americans > 60 (> 60); eGFR For Non-African Americans > 60 (> 60)
[2020-06-22] MEDS: Insulin LISPRO 300 UNITS/3 ML VIAL SQ SCH ×3 (07:11→16:30)
[2020-06-22] MEDS: Ranolazine 500 MG TAB.ER.12H PO SCH ×2 (08:40→19:33)
[2020-06-22] MEDS: Metoprolol XL (24 HR) Succ 50 MG TAB.ER.24H PO SCH ×2 (08:41→19:33)
[2020-06-22] MEDS: Apixaban 5 MG TABLET PO SCH ×2 (08:41→19:33)
[2020-06-22] MEDS: ALPRAZolam 0.5 MG TABLET PO SCH ×3 (08:42→19:33)
[2020-06-22] MEDS: Lactulose Oral Soln 20 GM/30 ML UDC PO SCH ×3 (08:42→19:33)
[2020-06-22] MEDS: Insulin DETEMIR 100 UNIT/ML X5UNITS SQ SCH ×2 (08:42→19:33)
[2020-06-22] MEDS: cefTRIAXone 2,000 MG in Water for inj. (sterile) 20 ML IVP SCH (10:45)
[2020-06-22] MEDS: *HR* HYDROcodone/Acet 5/325 mg TABLET PO PRN (16:30)
[2020-06-22] MEDS: Torsemide 20 MG TABLET PO SCH (18:23)
[2020-06-23 03:12] LABS: Hematocrit 42.6 % (35.3-44.9); Hemoglobin 13.4 g/dL (11.5-15.4); Mean Corpuscular HGB Conc 31.5 g/dL (31.6-35.5); Mean Corpuscular Hemoglobin 27.6 pg (28.0-33.3); Mean Corpuscular Volume 87.8 fL (83.0-100.0); Mean Platelet Volume 9.5 fL (9.4-12.4); Platelet Count 179 K/mcL (140-400); Red Blood Count 4.85 M/mcL (3.82-4.97); Red Cell Distribution Width 19.3 % (11.5-14.5); White Blood Count 7.9 K/mcL (4.3-11.1)
[2020-06-23 03:29] LABS: BUN/Creatinine Ratio 14 (6-26); Blood Urea Nitrogen 11 mg/dL (8-23); Calcium 9.5 mg/dL (8.6-10.3); Carbon Dioxide 26 mEq/L (23-29); Chloride 101 mEq/L (98-107); Glucose 101 mg/dL (70-105); Magnesium 1.6 mg/dL (1.6-2.6); Osmolality,Calculated 280 (280-300); Potassium 3.9 mEq/L (3.5-5.1); Sodium 135 mEq/L (136-145); eGFR For African Americans > 60 (> 60); eGFR For Non-African Americans > 60 (> 60)
[2020-06-23] MEDS: *HR* HYDROcodone/Acet 5/325 mg TABLET PO PRN (05:17)
[2020-06-23 07:06] VITALS: BP 101/71
[2020-06-23] MEDS: Metoprolol XL (24 HR) Succ 50 MG TAB.ER.24H PO SCH (08:01)
[2020-06-23] MEDS: Ranolazine 500 MG TAB.ER.12H PO SCH (08:01)
[2020-06-23] MEDS: ALPRAZolam 0.5 MG TABLET PO SCH (08:01)
[2020-06-23] MEDS: cefTRIAXone 2,000 MG in Water for inj. (sterile) 20 ML IVP SCH (08:02)
[2020-06-23] MEDS: Lactulose Oral Soln 20 GM/30 ML UDC PO SCH (08:02)
[2020-06-23] MEDS: Apixaban 5 MG TABLET PO SCH (08:02)
[2020-06-23] MEDS: Insulin LISPRO 300 UNITS/3 ML VIAL SQ SCH (08:06)
[2020-06-23] MEDS: Insulin DETEMIR 100 UNIT/ML X5UNITS SQ SCH (08:51)
== END 2020-06-23 15:42 | disposition home health service (06) | DRG 872 ==
LOC: EMEROOARM 00:51 → 2NENU 00:51 → SUATTDRO 05:04 → 2NENU 05:32 → 2ANU 06-22 19:23
PROVIDERS: ADMIT Family Medicine; ATTEND Internal Medicine

== ENCOUNTER 2020-07-20 13:05 | Inpatient (IN) ==
[2020-07-20] MEDS ORDERED: 0.9 % Sodium Chloride 250 ML IVC ONE (13:24)
[2020-07-20 14:03] LABS: Basophils % 0.3 %; Eosinophils # 0.2 K/mcL (0.0-0.6); Eosinophils % 2.1 %; Hematocrit 42.7 % (35.3-44.9); Hemoglobin 13.2 g/dL (11.5-15.4); Immature Granulocytes % 0.6 % (0-4); Lymphocytes # 1.6 K/mcL (0.6-4.6); Lymphocytes % 17.8 %; Mean Corpuscular HGB Conc 30.9 g/dL (31.6-35.5); Mean Corpuscular Hemoglobin 28.9 pg (28.0-33.3); Mean Corpuscular Volume 93.4 fL (83.0-100.0); Mean Platelet Volume 8.8 fL (9.4-12.4); Monocytes # 0.8 K/mcL (0.0-1.3); Monocytes % 8.8 %; Neutrophils # 6.4 K/mcL (1.6-8.9); Platelet Count 354 K/mcL (140-400); Red Blood Count 4.57 M/mcL (3.82-4.97); Red Cell Distribution Width 19.1 % (11.5-14.5); Segmented Neutrophils % 70.4 %; White Blood Count 9.1 K/mcL (4.3-11.1)
[2020-07-20] MEDS ORDERED: *HR* HYDROcodone/Acet 5/325 mg TABLET PO ONE (14:03)
[2020-07-20] MEDS ORDERED: Ondansetron 4 MG/2 ML VIAL IVP PRN (14:10)
[2020-07-20] MEDS ORDERED: Naloxone 0.4 MG/ML INJ IVP PRN (14:10)
[2020-07-20 14:16] LABS: BUN/Creatinine Ratio 18 (6-26); Blood Urea Nitrogen 16 mg/dL (8-23); Calcium 10.1 mg/dL (8.6-10.3); Carbon Dioxide 27 mEq/L (23-29); Chloride 98 mEq/L (98-107); Glucose 223 mg/dL (70-105); Osmolality,Calculated 292 (280-300); Potassium 3.1 mEq/L (3.5-5.1); Sodium 137 mEq/L (136-145); eGFR For African Americans > 60 (> 60); eGFR For Non-African Americans > 60 (> 60)
[2020-07-20] MEDS ORDERED: D5% in Water 1,000 ML IVC PRN (14:22)
[2020-07-20] MEDS ORDERED: Dextrose Gel 15 GM/37.5 ML TUBE PO PRN ×2 (14:22)
[2020-07-20] MEDS ORDERED: *HR* Dextrose 50 % in Water (Vial) 50 ML VIAL IVP PRN (14:22)
[2020-07-20] MEDS ORDERED: Gadolinium Contrast Agent (WT Based) IV PRN (15:22)
[2020-07-20] MEDS: Insulin LISPRO 300 UNITS/3 ML VIAL SQ SCH ×2 (16:58→22:55)
[2020-07-20] MEDS: Lactulose Oral Soln 20 GM/30 ML UDC PO SCH ×2 (16:59→22:56)
[2020-07-20] MEDS: Gabapentin 300 MG CAPSULE PO SCH ×2 (16:59→20:34)
[2020-07-20] MEDS: ALPRAZolam 0.5 MG TABLET PO SCH ×2 (16:59→20:35)
[2020-07-20] MEDS: Torsemide 20 MG TABLET PO SCH (17:00)
[2020-07-20] MEDS: Ranolazine 500 MG TAB.ER.12H PO SCH (20:34)
[2020-07-20] MEDS: Metoprolol XL (24 HR) Succ 50 MG TAB.ER.24H PO SCH (20:35)
[2020-07-20] MEDS ORDERED: NON-FORMULARY MEDICATION 1 EACH EACH (Insulin Detemir 15 UNIT) SQ SCH (21:00)
[2020-07-20] MEDS: Insulin DETEMIR 100 UNIT/ML X5UNITS SQ SCH (22:55)
[2020-07-21 04:07] LABS: Basophils % 0.4 %; Eosinophils # 0.3 K/mcL (0.0-0.6); Eosinophils % 3.5 %; Hematocrit 37.6 % (35.3-44.9); Immature Granulocytes % 0.4 % (0-4); Lymphocytes # 1.2 K/mcL (0.6-4.6); Lymphocytes % 17.3 %; Mean Corpuscular HGB Conc 30.3 g/dL (31.6-35.5); Mean Corpuscular Hemoglobin 27.7 pg (28.0-33.3); Mean Corpuscular Volume 91.5 fL (83.0-100.0); Mean Platelet Volume 8.9 fL (9.4-12.4); Monocytes # 0.8 K/mcL (0.0-1.3); Monocytes % 10.7 %; Neutrophils # 4.9 K/mcL (1.6-8.9); Platelet Count 285 K/mcL (140-400); Red Blood Count 4.11 M/mcL (3.82-4.97); Red Cell Distribution Width 18.8 % (11.5-14.5); Segmented Neutrophils % 67.7 %; White Blood Count 7.2 K/mcL (4.3-11.1)
[2020-07-21 04:11] LABS: Hemoglobin 11.4 g/dL (11.5-15.4)
[2020-07-21 04:25] LABS: BUN/Creatinine Ratio 17 (6-26); Blood Urea Nitrogen 15 mg/dL (8-23); Calcium 9.3 mg/dL (8.6-10.3); Carbon Dioxide 28 mEq/L (23-29); Chloride 103 mEq/L (98-107); Glucose 113 mg/dL (70-105); Osmolality,Calculated 294 (280-300); Potassium 3.6 mEq/L (3.5-5.1); Sodium 141 mEq/L (136-145); eGFR For African Americans > 60 (> 60); eGFR For Non-African Americans > 60 (> 60)
[2020-07-21] MEDS: Gabapentin 300 MG CAPSULE PO SCH ×3 (08:11→21:34)
[2020-07-21] MEDS: Ranolazine 500 MG TAB.ER.12H PO SCH ×2 (08:13→21:35)
[2020-07-21] MEDS: Metoprolol XL (24 HR) Succ 50 MG TAB.ER.24H PO SCH (08:13)
[2020-07-21] MEDS: ALPRAZolam 0.5 MG TABLET PO SCH ×3 (08:13→21:35)
[2020-07-21] MEDS: Lactulose Oral Soln 20 GM/30 ML UDC PO SCH ×3 (08:13→21:34)
[2020-07-21] MEDS: Insulin LISPRO 300 UNITS/3 ML VIAL SQ SCH ×4 (08:14→21:38)
[2020-07-21] MEDS ORDERED: Ascorbic Acid 500 MG TABLET PO SCH (09:00)
[2020-07-21] MEDS ORDERED: Torsemide 20 MG TABLET PO SCH (09:00)
[2020-07-21] MEDS ORDERED: ceFAZolin 2,000 MG in 0.9 % Sodium Chloride 100 ML IVPB ONE (09:22)
[2020-07-21] MEDS ORDERED: 0.9 % Sodium Chloride 250 ML IVC ONE (11:18)
[2020-07-21] MEDS ORDERED: 0.9 % Sodium Chloride 250 ML ONE (11:22)
[2020-07-21] MEDS: Piperacillin/Tazobactam 3.375 GM in 0.9 % Sodium Chloride Mini Bag 100 ML IVPB SCH (16:45)
[2020-07-21] MEDS ORDERED: Heparin 1,000 UNITS/500 mL 0 ML ONE (18:35)
[2020-07-21] MEDS: Torsemide 20 MG TABLET PO SCH (19:10)
[2020-07-21] MEDS ORDERED: Albumin 25% 25gram/100mL 25 GM/100 ML IV.SOLN IVPB ONE (20:01)
[2020-07-21] MEDS ORDERED: Heparin 1,000 UNITS/500 mL 1,000 ML ONE (20:05)
[2020-07-21] MEDS ORDERED: Metoprolol XL (24 HR) Succ 50 MG TAB.ER.24H PO SCH (21:00)
[2020-07-21] MEDS: Insulin DETEMIR 100 UNIT/ML X5UNITS SQ SCH (21:38)
[2020-07-22] MEDS: Piperacillin/Tazobactam 3.375 GM in 0.9 % Sodium Chloride Mini Bag 100 ML IVPB SCH (00:12)
[2020-07-22] MEDS ORDERED: *HR* Propofol 200 MG/20 ML VIAL IVP ONE (01:23)
[2020-07-22] MEDS ORDERED: *HR* FentaNYL (PF) 100 MCG/2 ML VIAL ONE ×2 (01:23→03:09)
[2020-07-22] MEDS ORDERED: Dexamethasone 4 MG/ML VIAL ONE (01:24)
[2020-07-22] MEDS ORDERED: Ondansetron 4 MG/2 ML VIAL ONE (01:24)
[2020-07-22] MEDS ORDERED: *HR* Rocuronium Bromide 50 MG/5 ML VIAL ONE (01:24)
[2020-07-22] MEDS ORDERED: *HR* Succinylcholine 200 MG/10 ML VIAL IVP ONE (01:24)
[2020-07-22] MEDS ORDERED: *HR* Etomidate 40 MG/20 ML VIAL IVP ONE (01:24)
[2020-07-22] MEDS ORDERED: Lidocaine -MPF 2% 2 ML VIAL ONE (01:24)
[2020-07-22] MEDS ORDERED: Lidocaine HCL 4 ML Topical Solution (Laryng-O-Jet Kit Sterile Pak) TP ONE (01:30)
[2020-07-22] MEDS ORDERED: EPHEDrine 50 MG/ML VIAL ONE (01:52)
[2020-07-22] MEDS ORDERED: *HR* Midazolam HCl 2 MG/2 ML VIAL ONE (01:52)
[2020-07-22] MEDS ORDERED: *HR* PHENYLEPHRINE 1,000 MCG/10 ML SYRINGE IVP ONE (03:24)
[2020-07-22] MEDS ORDERED: *HR* Phenylephrine 10 MG/ML VIAL ONE (03:48)
[2020-07-22] MEDS ORDERED: Ondansetron 4 MG/2 ML VIAL IVP PRN (06:15)
[2020-07-22] MEDS ORDERED: Dextrose Gel 15 GM/37.5 ML TUBE PO PRN ×2 (06:15)
[2020-07-22] MEDS ORDERED: D5% in Water 1,000 ML IVC PRN (06:15)
[2020-07-22] MEDS ORDERED: Gadolinium Contrast Agent (WT Based) IV PRN (06:15)
[2020-07-22] MEDS ORDERED: *HR* HYDROcodone/Acet 5/325 mg TABLET PO PRN (06:15)
[2020-07-22] MEDS ORDERED: Acetaminophen 325 MG TABLET PO PRN (06:15)
[2020-07-22] MEDS ORDERED: Naloxone 0.4 MG/ML INJ IVP PRN ×2 (06:15)
[2020-07-22] MEDS ORDERED: *HR* Dextrose 50 % in Water (Vial) 50 ML VIAL IVP PRN (06:15)
[2020-07-22] MEDS ORDERED: Piperacillin/Tazobactam 3.375 GM in 0.9 % Sodium Chloride Mini Bag 100 ML IVPB SCH (08:00)
[2020-07-22] MEDS: Insulin LISPRO 300 UNITS/3 ML VIAL SQ SCH ×4 (08:19→20:36)
[2020-07-22] MEDS: Ranolazine 500 MG TAB.ER.12H PO SCH ×2 (08:21→20:32)
[2020-07-22] MEDS: Lactulose Oral Soln 20 GM/30 ML UDC PO SCH ×3 (08:21→20:32)
[2020-07-22] MEDS: Torsemide 20 MG TABLET PO SCH ×2 (08:22→17:49)
[2020-07-22] MEDS: Ascorbic Acid 500 MG TABLET PO SCH (08:23)
[2020-07-22] MEDS: Gabapentin 300 MG CAPSULE PO SCH ×3 (08:23→20:31)
[2020-07-22] MEDS: ALPRAZolam 0.5 MG TABLET PO SCH ×3 (08:23→20:31)
[2020-07-22 08:43] LABS: Hematocrit 36.8 % (35.3-44.9); Hemoglobin 11.3 g/dL (11.5-15.4); Mean Corpuscular HGB Conc 30.7 g/dL (31.6-35.5); Mean Corpuscular Hemoglobin 28.3 pg (28.0-33.3); Mean Corpuscular Volume 92.2 fL (83.0-100.0); Mean Platelet Volume 8.9 fL (9.4-12.4); Platelet Count 239 K/mcL (140-400); Red Blood Count 3.99 M/mcL (3.82-4.97)
[2020-07-22 08:56] LABS: BUN/Creatinine Ratio 18 (6-26); Blood Urea Nitrogen 14 mg/dL (8-23); Calcium 9.6 mg/dL (8.6-10.3); Carbon Dioxide 30 mEq/L (23-29); Chloride 103 mEq/L (98-107); Glucose 181 mg/dL (70-105); Osmolality,Calculated 293 (280-300); Potassium 3.6 mEq/L (3.5-5.1); Sodium 139 mEq/L (136-145); eGFR For African Americans > 60 (> 60); eGFR For Non-African Americans > 60 (> 60)
[2020-07-22] MEDS ORDERED: Metoprolol XL (24 HR) Succ 50 MG TAB.ER.24H PO SCH (09:00)
[2020-07-22] MEDS ORDERED: 0.9 % Sodium Chloride 250 ML IVC ONE (15:01)
[2020-07-22] MEDS ORDERED: 0.9 % Sodium Chloride 1,000 ML IVC SCH (15:30)
[2020-07-22 17:16] LABS: Hematocrit 33.7 % (35.3-44.9)
[2020-07-22] MEDS: Cefepime HCl 2,000 MG in Water for inj. (sterile) 20 ML IVP SCH (17:48)
[2020-07-22] MEDS: Insulin DETEMIR 100 UNIT/ML X5UNITS SQ SCH (20:37)
[2020-07-23] MEDS: Vancomycin 1,250 MG/262.5 ML IV.SOLN IVPB SCH (00:34)
[2020-07-23 05:36] LABS: Hematocrit 34.1 % (35.3-44.9); Hemoglobin 10.2 g/dL (11.5-15.4); Mean Corpuscular HGB Conc 29.9 g/dL (31.6-35.5); Mean Corpuscular Hemoglobin 27.9 pg (28.0-33.3); Mean Corpuscular Volume 93.4 fL (83.0-100.0); Mean Platelet Volume 8.9 fL (9.4-12.4); Platelet Count 229 K/mcL (140-400); Red Blood Count 3.65 M/mcL (3.82-4.97); Red Cell Distribution Width 17.6 % (11.5-14.5); White Blood Count 8.9 K/mcL (4.3-11.1)
[2020-07-23 05:55] LABS: BUN/Creatinine Ratio 28 (6-26); Blood Urea Nitrogen 19 mg/dL (8-23); Calcium 8.7 mg/dL (8.6-10.3); Carbon Dioxide 31 mEq/L (23-29); Chloride 104 mEq/L (98-107); Glucose 172 mg/dL (70-105); Osmolality,Calculated 298 (280-300); Potassium 3.3 mEq/L (3.5-5.1); Sodium 141 mEq/L (136-145); eGFR For African Americans > 60 (> 60); eGFR For Non-African Americans > 60 (> 60)
[2020-07-23] MEDS: Cefepime HCl 2,000 MG in Water for inj. (sterile) 20 ML IVP SCH ×2 (06:15→17:21)
[2020-07-23] MEDS ORDERED: Potassium Chloride 40 MEQ, Lidocaine 1% 2 ML in 0.9 % Sodium Chloride 500 ML IVPB ONE (08:26)
[2020-07-23] MEDS ORDERED: Metoprolol XL (24 HR) Succ 50 MG TAB.ER.24H PO SCH (09:00)
[2020-07-23] MEDS: Insulin LISPRO 300 UNITS/3 ML VIAL SQ SCH ×4 (09:40→21:22)
[2020-07-23] MEDS: Lactulose Oral Soln 20 GM/30 ML UDC PO SCH ×3 (10:05→21:22)
[2020-07-23] MEDS: ALPRAZolam 0.5 MG TABLET PO SCH ×3 (10:06→21:22)
[2020-07-23] MEDS: Torsemide 20 MG TABLET PO SCH ×2 (10:07→17:21)
[2020-07-23] MEDS: Ranolazine 500 MG TAB.ER.12H PO SCH ×2 (10:07→21:22)
[2020-07-23] MEDS: Ascorbic Acid 500 MG TABLET PO SCH (10:07)
[2020-07-23] MEDS: Gabapentin 300 MG CAPSULE PO SCH ×3 (10:08→21:21)
[2020-07-23] MEDS ORDERED: *HR* FentaNYL (PF) 100 MCG/2 ML VIAL ONE (14:13)
[2020-07-23] MEDS ORDERED: *HR* Propofol 200 MG/20 ML VIAL IVP ONE (14:13)
[2020-07-23] MEDS ORDERED: EPHEDrine 50 MG/ML VIAL ONE (14:16)
[2020-07-23] MEDS ORDERED: *HR* OxyCODONE Immed Rel 5 MG TABLET PO PRN (14:20)
[2020-07-23] MEDS ORDERED: *HR* Promethazine 25 MG/ML VIAL IVP PRN (14:20)
[2020-07-23] MEDS ORDERED: Ondansetron 4 MG/2 ML VIAL IVP ONE (14:20)
[2020-07-23] MEDS ORDERED: *HR* HYDROmorphone PF 0.5 MG/0.5 ML SYRINGE IVP PRN (14:20)
[2020-07-23] MEDS ORDERED: *HR* Midazolam HCl 2 MG/2 ML VIAL ONE (14:32)
[2020-07-23] MEDS ORDERED: flumazeniL 0.5 MG/5 ML VIAL IVP ONE (14:58)
[2020-07-23] MEDS ORDERED: Piperacillin/Tazobactam 3.375 GM in 0.9 % Sodium Chloride Mini Bag 100 ML IVPB SCH (16:00)
[2020-07-23] MEDS: metroNIDAZOLE 500 MG TABLET PO SCH (21:21)
[2020-07-23] MEDS: Insulin DETEMIR 100 UNIT/ML X5UNITS SQ SCH (21:47)
[2020-07-24 02:11] LABS: Basophils % 0.3 %; Eosinophils # 0.3 K/mcL (0.0-0.6); Hematocrit 36.2 % (35.3-44.9); Hemoglobin 10.7 g/dL (11.5-15.4); Immature Granulocytes % 0.5 % (0-4); Lymphocytes # 1.1 K/mcL (0.6-4.6); Lymphocytes % 13.9 %; Mean Corpuscular HGB Conc 29.6 g/dL (31.6-35.5); Mean Corpuscular Hemoglobin 27.4 pg (28.0-33.3); Mean Corpuscular Volume 92.8 fL (83.0-100.0); Mean Platelet Volume 9.1 fL (9.4-12.4); Monocytes # 0.8 K/mcL (0.0-1.3); Monocytes % 9.9 %; Neutrophils # 5.7 K/mcL (1.6-8.9); Platelet Count 233 K/mcL (140-400); Red Cell Distribution Width 17.9 % (11.5-14.5); Segmented Neutrophils % 71.4 %; White Blood Count 7.9 K/mcL (4.3-11.1)
[2020-07-24 02:31] LABS: BUN/Creatinine Ratio 21 (6-26); Blood Urea Nitrogen 16 mg/dL (8-23); Calcium 9.4 mg/dL (8.6-10.3); Carbon Dioxide 30 mEq/L (23-29); Chloride 100 mEq/L (98-107); Glucose 99 mg/dL (70-105); Magnesium 1.5 mg/dL (1.6-2.6); Osmolality,Calculated 289 (280-300); Sodium 139 mEq/L (136-145); eGFR For African Americans > 60 (> 60); eGFR For Non-African Americans > 60 (> 60)
[2020-07-24] MEDS: Vancomycin 1,250 MG/262.5 ML IV.SOLN IVPB SCH (03:41)
[2020-07-24] MEDS: Cefepime HCl 2,000 MG in Water for inj. (sterile) 20 ML IVP SCH ×2 (06:15→17:12)
[2020-07-24] MEDS ORDERED: 0.9 % Sodium Chloride 500 ML IVC ONE (07:42)
[2020-07-24] MEDS: metroNIDAZOLE 500 MG TABLET PO SCH ×3 (08:08→20:21)
[2020-07-24] MEDS: Ranolazine 500 MG TAB.ER.12H PO SCH ×2 (08:08→20:21)
[2020-07-24] MEDS: Lactulose Oral Soln 20 GM/30 ML UDC PO SCH ×3 (08:09→20:20)
[2020-07-24] MEDS: Apixaban 5 MG TABLET PO SCH ×2 (08:09→20:20)
[2020-07-24] MEDS: Gabapentin 300 MG CAPSULE PO SCH ×3 (08:09→20:20)
[2020-07-24] MEDS: Torsemide 20 MG TABLET PO SCH (08:10)
[2020-07-24] MEDS: Ascorbic Acid 500 MG TABLET PO SCH (08:11)
[2020-07-24] MEDS: Insulin LISPRO 300 UNITS/3 ML VIAL SQ SCH ×4 (08:36→20:25)
[2020-07-24] MEDS: ALPRAZolam 0.5 MG TABLET PO SCH ×3 (11:25→20:21)
[2020-07-24] MEDS: Insulin DETEMIR 100 UNIT/ML X5UNITS SQ SCH (20:21)
[2020-07-25] MEDS ORDERED: Vancomycin 1,500 MG/265 ML IV.SOLN IVPB SCH
[2020-07-25] MEDS: Cefepime HCl 2,000 MG in Water for inj. (sterile) 20 ML IVP SCH (06:32)
[2020-07-25 06:55] VITALS: BP 125/78
[2020-07-25] MEDS: Insulin LISPRO 300 UNITS/3 ML VIAL SQ SCH (07:48)
[2020-07-25] MEDS: Apixaban 5 MG TABLET PO SCH (09:41)
[2020-07-25] MEDS: ALPRAZolam 0.5 MG TABLET PO SCH (09:41)
[2020-07-25] MEDS: metroNIDAZOLE 500 MG TABLET PO SCH (09:42)
[2020-07-25] MEDS: Ranolazine 500 MG TAB.ER.12H PO SCH (09:42)
[2020-07-25] MEDS: Ascorbic Acid 500 MG TABLET PO SCH (09:43)
[2020-07-25] MEDS: Gabapentin 300 MG CAPSULE PO SCH (09:43)
[2020-07-25] MEDS: Lactulose Oral Soln 20 GM/30 ML UDC PO SCH (09:44)
== END 2020-07-25 11:32 | disposition home health service (06) | DRG 253 ==
LOC: EMEROOARM 13:05 → 3ANU 13:05 → SUATTDRO 14:08 → 3ANU 14:31 → SUATTDRO 07-21 14:48 → 2NNU 07-22 03:08 → 3ANU 07-22 04:40
PROVIDERS: ADMIT Internal Medicine; ATTEND Internal Medicine

== ENCOUNTER 2020-09-09 10:42 | Inpatient (IN) ==
[2020-09-09] MEDS ORDERED: methylPREDNISolone 125 MG/2 ML VIAL IVP ONE (11:17)
[2020-09-09] MEDS ORDERED: Ipratropium/Albuterol Neb 3 ML IH ONE (11:17)
[2020-09-09 11:34] LABS: Basophils % 0.2 %; Eosinophils # 0.1 K/mcL (0.0-0.6); Eosinophils % 1.4 %; Hematocrit 19.8 % (35.3-44.9); Immature Granulocytes % 0.7 % (0-4); Lymphocytes # 0.5 K/mcL (0.6-4.6); Lymphocytes % 8.1 %; Mean Corpuscular HGB Conc 25.8 g/dL (31.6-35.5); Mean Corpuscular Hemoglobin 26.7 pg (28.0-33.3); Mean Corpuscular Volume 103.7 fL (83.0-100.0); Mean Platelet Volume 10.5 fL (9.4-12.4); Monocytes # 0.4 K/mcL (0.0-1.3); Monocytes % 7.4 %; Platelet Count 203 K/mcL (140-400); Red Blood Count 1.91 M/mcL (3.82-4.97); Red Cell Distribution Width 18.3 % (11.5-14.5); Segmented Neutrophils % 82.2 %; White Blood Count 5.7 K/mcL (4.3-11.1)
[2020-09-09 11:43] LABS: INR 3.1; Prothrombin Time 34.5 Seconds (9.4-12.1)
[2020-09-09 11:56] LABS: Bilirubin,Urine Negative (Negative); Blood,Urine Negative (Negative); Clarity,Urine Clear (Clear); Color,Urine Colorless (Yellow); Glucose,Urine (UA) Normal (Normal); Ketones,Urine Negative (Negative); Leukocyte Esterase,Urine Negative (Negative); Nitrite,Urine Negative (Negative); Protein,Urine Negative (Neg-Trace); Specific Gravity,Urine 1.009 (1.010-1.025); Urobilinogen,Urine Normal (Normal)
[2020-09-09 12:08] LABS: Hypochromasia Present (Not Present); Microcytosis Present (Not Present); Platelet Estimate Normal (Normal)
[2020-09-09 12:10] LABS: Alanine Aminotransferase 8 Units/L (7-52); Albumin 3.4 g/dL (3.5-5.7); Albumin/Globulin Ratio 1.4 (1.1-2.2); Alkaline Phosphatase 87 Units/L (34-104); Anisocytosis 1+ (Not Present); Aspartate Amino Transferase 13 Units/L (13-39); BUN/Creatinine Ratio 18 (6-26); Bilirubin,Direct 0.2 mg/dL (0.0-0.2); Bilirubin,Indirect 0.3 mg/dL (0.0-1.0); Bilirubin,Total 0.5 mg/dL (0.3-1.0); Blood Urea Nitrogen 17 mg/dL (8-23); Calcium 8.5 mg/dL (8.6-10.3); Carbon Dioxide 25 mEq/L (23-29); Chloride 101 mEq/L (98-107); Globulin 2.5 g/dL (2.4-3.5); Glucose 189 mg/dL (70-105); Lipase 25 Units/L (11-82); Osmolality,Calculated 295 (280-300); Potassium 2.8 mEq/L (3.5-5.1); Sodium 139 mEq/L (136-145); Total Protein 5.9 g/dL (6.4-8.9); Troponin I 0.13 ng/mL (< 0.04); eGFR For African Americans > 60 (> 60); eGFR For Non-African Americans 57 (> 60)
[2020-09-09 12:11] LABS: Hemoglobin 5.1 g/dL (11.5-15.4); Neutrophils # 4.7 K/mcL (1.6-8.9)
[2020-09-09] MEDS ORDERED: Potassium Chloride 40 MEQ, Lidocaine 1% 2 ML in 0.9 % Sodium Chloride 500 ML IVPB ONE (12:26)
[2020-09-09] MEDS ORDERED: 0.9 % Sodium Chloride 1,000 ML IVC ONE ×2 (12:48→12:51)
[2020-09-09] MEDS ORDERED: Piperacillin/Tazobactam 3.375 GM in 0.9 % Sodium Chloride Mini Bag 100 ML IVPB ONE (12:52)
[2020-09-09] MEDS ORDERED: Mag Hydrox/Al Hydrox/Simeth 30 ML UDC PO PRN (13:02)
[2020-09-09] MEDS ORDERED: MOM Conc 10 ML UD.LIQ PO PRN (13:02)
[2020-09-09] MEDS ORDERED: Naloxone 0.4 MG/ML INJ IVP PRN (13:02)
[2020-09-09] MEDS ORDERED: Ondansetron 4 MG/2 ML VIAL IVP PRN (13:02)
[2020-09-09] MEDS ORDERED: 0.9 % Sodium Chloride 250 ML ONE ×2 (13:43→19:58)
[2020-09-09 14:32] LABS: Adenovirus Not Detected (Not Detect); Bordetella Pertussis Not Detected (Not Detect); Chlamydophila pneumoniae Not Detected (Not Detect); Coronavirus 229E Not Detected (Not Detect); Coronavirus HKU1 Not Detected (Not Detect); Coronavirus NL63 Not Detected (Not Detect); Coronavirus OC43 Not Detected (Not Detect); Human Metapneumovirus Not Detected (Not Detect); Human Rhinovirus/Enterovirus Not Detected (Not Detect); Influenza A Subtype 2009 H1 Not Detected (Not Detect); Influenza B Not Detected (Not Detect); Mycoplasma pneumoniae Not Detected (Not Detect); Parainfluenza Virus 1 Not Detected (Not Detect); Parainfluenza Virus 2 Not Detected (Not Detect); Parainfluenza Virus 3 Not Detected (Not Detect); Parainfluenza Virus 4 Not Detected (Not Detect); Respiratory Syncytial Virus Not Detected (Not Detect); SARS-CoV-2 Not Detected (Not Detect)
[2020-09-09 15:04] LABS: Hematocrit 18.7 % (35.3-44.9)
[2020-09-09 15:11] LABS: Hemoglobin 5.1 g/dL (11.5-15.4)
[2020-09-09] MEDS ORDERED: Albuterol 2.5 MG/3 ML NEBULIZER IH PRN (16:04)
[2020-09-09] MEDS ORDERED: Dextrose Gel 15 GM/37.5 ML TUBE PO PRN ×2 (16:04)
[2020-09-09] MEDS ORDERED: *HR* Dextrose 50 % in Water (Vial) 50 ML VIAL IVP PRN (16:04)
[2020-09-09] MEDS ORDERED: D5% in Water 1,000 ML IVC PRN (16:04)
[2020-09-09] MEDS: Ipratropium/Albuterol Neb 3 ML IH SCH ×2 (16:54→23:58)
[2020-09-09] MEDS: 0.9 % Sodium Chloride 1,000 ML IVC SCH (18:49)
[2020-09-09] MEDS: Insulin LISPRO 300 UNITS/3 ML VIAL SQ SCH ×2 (18:52→23:20)
[2020-09-09] MEDS ORDERED: Gabapentin 400 MG CAPSULE PO ONE (22:43)
[2020-09-09] MEDS: Acetaminophen 325 MG TABLET PO PRN (23:02)
[2020-09-09] MEDS: MethylPREDNISolone 40 MG/ML VIAL IVP SCH (23:02)
[2020-09-09] MEDS: Piperacillin/Tazobactam 3.375 GM in 0.9 % Sodium Chloride Mini Bag 100 ML IVPB SCH (23:03)
[2020-09-10] MEDS ORDERED: *HR* HYDROcodone/Acet 5/325 mg TABLET PO ONE (02:16)
[2020-09-10] MEDS: Ipratropium/Albuterol Neb 3 ML IH SCH ×4 (03:52→22:23)
[2020-09-10 04:33] LABS: Hematocrit 26.4 % (35.3-44.9); Mean Corpuscular HGB Conc 29.5 g/dL (31.6-35.5); Mean Platelet Volume 10.9 fL (9.4-12.4); Platelet Count 133 K/mcL (140-400); Red Blood Count 2.79 M/mcL (3.82-4.97); Red Cell Distribution Width 19.3 % (11.5-14.5); White Blood Count 4.2 K/mcL (4.3-11.1)
[2020-09-10 04:55] LABS: Hemoglobin 7.8 g/dL (11.5-15.4); Mean Corpuscular Volume 94.6 fL (83.0-100.0)
[2020-09-10 04:59] LABS: Alanine Aminotransferase 6 Units/L (7-52); Albumin 3.2 g/dL (3.5-5.7); Albumin/Globulin Ratio 1.3 (1.1-2.2); Alkaline Phosphatase 61 Units/L (34-104); Aspartate Amino Transferase 12 Units/L (13-39); BUN/Creatinine Ratio 18 (6-26); Bilirubin,Total 0.7 mg/dL (0.3-1.0); Blood Urea Nitrogen 12 mg/dL (8-23); Carbon Dioxide 25 mEq/L (23-29); Chloride 109 mEq/L (98-107); Globulin 2.5 g/dL (2.4-3.5); Glucose 152 mg/dL (70-105); Magnesium 1.7 mg/dL (1.6-2.6); Osmolality,Calculated 295 (280-300); Potassium 3.5 mEq/L (3.5-5.1); Sodium 141 mEq/L (136-145); Total Protein 5.7 g/dL (6.4-8.9); eGFR For African Americans > 60 (> 60); eGFR For Non-African Americans > 60 (> 60)
[2020-09-10 05:15] LABS: Folate 12.4 ng/mL (3.0-16.0)
[2020-09-10] MEDS: MethylPREDNISolone 40 MG/ML VIAL IVP SCH ×2 (08:17→20:36)
[2020-09-10] MEDS: 0.9 % Sodium Chloride 1,000 ML IVC SCH (08:17)
[2020-09-10] MEDS: Piperacillin/Tazobactam 3.375 GM in 0.9 % Sodium Chloride Mini Bag 100 ML IVPB SCH ×3 (08:18→23:45)
[2020-09-10] MEDS: Insulin LISPRO 300 UNITS/3 ML VIAL SQ SCH ×4 (08:18→20:41)
[2020-09-10 10:07] LABS: INR 1.8; Prothrombin Time 20.6 Seconds (9.4-12.1)
[2020-09-10 12:20] LABS: ABG Base Excess 1 mEq/L (-2 to 3); ABG HCO3 26 mEq/L (21-27); ABG Oxygen Saturation 92 % (95-98); ABG PCO2 41 mmHg (35-45); ABG PH 7.41 pH Units (7.32-7.45); ABG PO2 62 mmHg (85-104); ABG TCO2 27 mEq/L (20-26)
[2020-09-10] MEDS: ALPRAZolam 0.5 MG TABLET PO SCH ×2 (14:29→20:36)
[2020-09-10] MEDS: *HR* HYDROcodone/Acet 5/325 mg TABLET PO PRN (14:29)
[2020-09-10 15:22] LABS: Hemoglobin 8.1 g/dL (11.5-15.4)
[2020-09-10] MEDS: Gabapentin 300 MG CAPSULE PO SCH (20:37)
[2020-09-10] MEDS: Pantoprazole 40 MG VIAL IVP SCH (23:44)
[2020-09-11] MEDS: *HR* HYDROcodone/Acet 5/325 mg TABLET PO PRN (03:04)
[2020-09-11] MEDS: Ipratropium/Albuterol Neb 3 ML IH SCH ×4 (04:00→21:28)
[2020-09-11] MEDS: Pantoprazole 40 MG VIAL IVP SCH ×2 (04:43→16:52)
[2020-09-11 05:23] LABS: Alanine Aminotransferase 7 Units/L (7-52); Albumin 3.1 g/dL (3.5-5.7); Albumin/Globulin Ratio 1.2 (1.1-2.2); Alkaline Phosphatase 63 Units/L (34-104); Aspartate Amino Transferase 13 Units/L (13-39); BUN/Creatinine Ratio 18 (6-26); Bilirubin,Total 0.9 mg/dL (0.3-1.0); Blood Urea Nitrogen 12 mg/dL (8-23); Calcium 8.6 mg/dL (8.6-10.3); Carbon Dioxide 25 mEq/L (23-29); Chloride 109 mEq/L (98-107); Globulin 2.5 g/dL (2.4-3.5); Glucose 148 mg/dL (70-105); INR 1.8; Magnesium 1.8 mg/dL (1.6-2.6); Osmolality,Calculated 291 (280-300); Potassium 3.6 mEq/L (3.5-5.1); Prothrombin Time 20.3 Seconds (9.4-12.1); Sodium 139 mEq/L (136-145); Total Protein 5.6 g/dL (6.4-8.9); eGFR For African Americans > 60 (> 60); eGFR For Non-African Americans > 60 (> 60)
[2020-09-11 05:34] LABS: Red Cell Distribution Width 19.8 % (11.5-14.5)
[2020-09-11 05:36] LABS: Hematocrit 27.2 % (35.3-44.9); Hemoglobin 7.7 g/dL (11.5-15.4); Immature Granulocytes % 1.1 % (0-4); Lymphocytes # 0.4 K/mcL (0.6-4.6); Mean Corpuscular HGB Conc 28.3 g/dL (31.6-35.5); Mean Corpuscular Hemoglobin 27.5 pg (28.0-33.3); Mean Corpuscular Volume 97.1 fL (83.0-100.0); Mean Platelet Volume 11.6 fL (9.4-12.4); Monocytes # 0.2 K/mcL (0.0-1.3); Monocytes % 3.1 %; Neutrophils # 6.5 K/mcL (1.6-8.9); Nucleated Red Blood Cells 0.6 /100 WBC (0); Platelet Count 120 K/mcL (140-400); Segmented Neutrophils % 90.8 %; White Blood Count 7.2 K/mcL (4.3-11.1)
[2020-09-11 06:49] LABS: Anisocytosis 1+ (Not Present); Hypochromasia Present (Not Present); Microcytosis Present (Not Present); Platelet Estimate Slight Decrease (Normal)
[2020-09-11] MEDS: Insulin LISPRO 300 UNITS/3 ML VIAL SQ SCH ×4 (07:26→22:05)
[2020-09-11] MEDS ORDERED: Lidocaine -MPF 2% 2 ML VIAL ONE (10:03)
[2020-09-11] MEDS ORDERED: *HR* Propofol 200 MG/20 ML VIAL IVP ONE (10:03)
[2020-09-11] MEDS ORDERED: 0.9 % Sodium Chloride 250 ML ONE (10:56)
[2020-09-11] MEDS: MethylPREDNISolone 40 MG/ML VIAL IVP SCH ×2 (11:43→21:57)
[2020-09-11] MEDS: Piperacillin/Tazobactam 3.375 GM in 0.9 % Sodium Chloride Mini Bag 100 ML IVPB SCH ×2 (11:44→15:39)
[2020-09-11] MEDS: Gabapentin 300 MG CAPSULE PO SCH ×3 (11:46→21:58)
[2020-09-11] MEDS: ALPRAZolam 0.5 MG TABLET PO SCH ×3 (11:47→21:58)
[2020-09-11] MEDS: Acetaminophen 325 MG TABLET PO PRN (13:39)
[2020-09-11] MEDS: Torsemide 20 MG TABLET PO SCH (17:22)
[2020-09-11 17:58] LABS: Hematocrit 33.2 % (35.3-44.9); Hemoglobin 9.1 g/dL (11.5-15.4)
[2020-09-11] MEDS: Ranolazine 500 MG TAB.ER.12H PO SCH (21:57)
[2020-09-11] MEDS: Apixaban 5 MG TABLET PO SCH (21:57)
[2020-09-12] MEDS ORDERED: GuaiFENesin/Codeine Oral Soln 5 ML UDC PO PRN (00:44)
[2020-09-12] MEDS: Piperacillin/Tazobactam 3.375 GM in 0.9 % Sodium Chloride Mini Bag 100 ML IVPB SCH ×3 (00:52→16:37)
[2020-09-12] MEDS: Melatonin 3 MG TABLET PO SCH ×2 (01:06→20:37)
[2020-09-12 01:23] LABS: Prothrombin Time 22.7 Seconds (9.4-12.1)
[2020-09-12 01:38] LABS: Alanine Aminotransferase 9 Units/L (7-52); Albumin 3.2 g/dL (3.5-5.7); Albumin/Globulin Ratio 1.3 (1.1-2.2); Alkaline Phosphatase 78 Units/L (34-104); Aspartate Amino Transferase 14 Units/L (13-39); BUN/Creatinine Ratio 19 (6-26); Bilirubin,Total 0.9 mg/dL (0.3-1.0); Blood Urea Nitrogen 14 mg/dL (8-23); Calcium 8.7 mg/dL (8.6-10.3); Carbon Dioxide 25 mEq/L (23-29); Chloride 108 mEq/L (98-107); Globulin 2.5 g/dL (2.4-3.5); Glucose 193 mg/dL (70-105); Magnesium 1.9 mg/dL (1.6-2.6); Osmolality,Calculated 294 (280-300); Potassium 3.8 mEq/L (3.5-5.1); Sodium 139 mEq/L (136-145); Total Protein 5.7 g/dL (6.4-8.9); eGFR For African Americans > 60 (> 60); eGFR For Non-African Americans > 60 (> 60)
[2020-09-12 01:39] LABS: Hematocrit 31.6 % (35.3-44.9); Hemoglobin 9.1 g/dL (11.5-15.4); Mean Corpuscular HGB Conc 28.8 g/dL (31.6-35.5); Mean Corpuscular Hemoglobin 28.1 pg (28.0-33.3); Mean Corpuscular Volume 97.5 fL (83.0-100.0); Mean Platelet Volume 11.3 fL (9.4-12.4); Neutrophils # 6.6 K/mcL (1.6-8.9); Platelet Count 126 K/mcL (140-400); Red Blood Count 3.24 M/mcL (3.82-4.97); Red Cell Distribution Width 19.1 % (11.5-14.5); Segmented Neutrophils % 92.5 %; White Blood Count 7.1 K/mcL (4.3-11.1)
[2020-09-12 01:40] LABS: Basophils % 0.1 %; Immature Granulocytes % 1.1 % (0-4); Lymphocytes # 0.2 K/mcL (0.6-4.6); Lymphocytes % 2.9 %; Monocytes # 0.2 K/mcL (0.0-1.3); Monocytes % 3.4 %
[2020-09-12 02:33] LABS: Platelet Estimate Normal (Normal); Polychromasia 1+ (Not Present)
[2020-09-12 02:34] LABS: Anisocytosis 2+ (Not Present)
[2020-09-12] MEDS: Ipratropium/Albuterol Neb 3 ML IH SCH ×4 (03:45→21:46)
[2020-09-12] MEDS: Apixaban 5 MG TABLET PO SCH ×2 (08:34→20:37)
[2020-09-12] MEDS: Ascorbic Acid 500 MG TABLET PO SCH (08:34)
[2020-09-12] MEDS: Torsemide 20 MG TABLET PO SCH ×2 (08:35→16:37)
[2020-09-12] MEDS: Gabapentin 300 MG CAPSULE PO SCH ×3 (08:35→20:37)
[2020-09-12] MEDS: Insulin LISPRO 300 UNITS/3 ML VIAL SQ SCH ×4 (08:36→20:24)
[2020-09-12] MEDS: Ranolazine 500 MG TAB.ER.12H PO SCH ×2 (08:38→20:37)
[2020-09-12] MEDS ORDERED: MethylPREDNISolone 40 MG/ML VIAL IVP SCH (09:00)
[2020-09-12] MEDS: ALPRAZolam 0.5 MG TABLET PO SCH ×3 (10:11→20:37)
[2020-09-12] MEDS: Acetaminophen 325 MG TABLET PO PRN (10:24)
[2020-09-12] MEDS ORDERED: Insulin DETEMIR 100 UNIT/ML X5UNITS SQ SCH (21:00)
[2020-09-13] MEDS: Piperacillin/Tazobactam 3.375 GM in 0.9 % Sodium Chloride Mini Bag 100 ML IVPB SCH ×2 (00:04→07:51)
[2020-09-13] MEDS: Ipratropium/Albuterol Neb 3 ML IH SCH ×2 (04:02→11:40)
[2020-09-13 04:11] LABS: Basophils % 0.1 %; Hematocrit 33.5 % (35.3-44.9); Hemoglobin 9.5 g/dL (11.5-15.4); Mean Corpuscular HGB Conc 28.4 g/dL (31.6-35.5); Monocytes % 7.3 %; Red Cell Distribution Width 19.3 % (11.5-14.5)
[2020-09-13 04:12] LABS: Eosinophils # 0.1 K/mcL (0.0-0.6); Eosinophils % 1.5 %; Immature Granulocytes % 1.1 % (0-4); Lymphocytes # 1.2 K/mcL (0.6-4.6); Lymphocytes % 16.9 %; Mean Corpuscular Hemoglobin 27.7 pg (28.0-33.3); Mean Corpuscular Volume 97.7 fL (83.0-100.0); Monocytes # 0.5 K/mcL (0.0-1.3); Neutrophils # 5.3 K/mcL (1.6-8.9); Nucleated Red Blood Cells 0.7 /100 WBC (0); Platelet Count 142 K/mcL (140-400); Red Blood Count 3.43 M/mcL (3.82-4.97); Segmented Neutrophils % 73.1 %; White Blood Count 7.2 K/mcL (4.3-11.1)
[2020-09-13 04:25] LABS: Anisocytosis 2+ (Not Present); Macrocytosis Present (Not Present); Platelet Estimate Normal (Normal)
[2020-09-13 04:29] LABS: Calcium 8.7 mg/dL (8.6-10.3); Magnesium 1.8 mg/dL (1.6-2.6); Potassium 3.2 mEq/L (3.5-5.1)
[2020-09-13] MEDS: Ranolazine 500 MG TAB.ER.12H PO SCH (07:51)
[2020-09-13] MEDS: Ascorbic Acid 500 MG TABLET PO SCH (07:52)
[2020-09-13] MEDS: Gabapentin 300 MG CAPSULE PO SCH (07:52)
[2020-09-13] MEDS: ALPRAZolam 0.5 MG TABLET PO SCH (07:52)
[2020-09-13] MEDS: Apixaban 5 MG TABLET PO SCH (07:53)
[2020-09-13] MEDS: Torsemide 20 MG TABLET PO SCH (07:53)
[2020-09-13] MEDS: Insulin LISPRO 300 UNITS/3 ML VIAL SQ SCH ×2 (08:13→13:36)
[2020-09-13] MEDS ORDERED: predniSONE 20 MG TABLET PO SCH (09:00)
[2020-09-13 10:56] LABS: INR 2.9; Prothrombin Time 32.5 Seconds (9.4-12.1)
[2020-09-13 12:07] VITALS: BP 108/72
== END 2020-09-13 13:47 | disposition home health service (06) | DRG 190 ==
LOC: 2NNU 10:42 → EMEROOARM 10:42 → SUATTDRO 17:08 → 2NNU 18:13 → 2ANU 09-12 15:16
PROVIDERS: ADMIT Internal Medicine; ATTEND Internal Medicine

== ENCOUNTER 2020-10-09 13:07 | Inpatient (IN) ==
[2020-10-09] MEDS ORDERED: Piperacillin/Tazobactam 3.375 GM in 0.9 % Sodium Chloride Mini Bag 100 ML IVPB ONE (13:48)
[2020-10-09 14:19] LABS: ABG Base Excess 1 mEq/L (-2 to 3); ABG HCO3 28 mEq/L (21-27); ABG Oxygen Saturation 95 % (95-98); ABG PCO2 53 mmHg (35-45); ABG PH 7.33 pH Units (7.32-7.45); ABG PO2 84 mmHg (85-104); ABG TCO2 30 mEq/L (20-26)
[2020-10-09 14:25] LABS: Prothrombin Time 33.9 Seconds (9.4-12.1)
[2020-10-09 14:27] LABS: Basophils % 0.4 %; Eosinophils # 0.1 K/mcL (0.0-0.6); Eosinophils % 1.6 %; Hematocrit 37.9 % (35.3-44.9); Hemoglobin 11.4 g/dL (11.5-15.4); Immature Granulocytes % 0.5 % (0-4); Lymphocytes # 0.8 K/mcL (0.6-4.6); Lymphocytes % 14.8 %; Mean Corpuscular HGB Conc 30.1 g/dL (31.6-35.5); Mean Corpuscular Hemoglobin 28.6 pg (28.0-33.3); Mean Corpuscular Volume 95.2 fL (83.0-100.0); Mean Platelet Volume 9.6 fL (9.4-12.4); Monocytes # 0.7 K/mcL (0.0-1.3); Monocytes % 13.2 %; Neutrophils # 3.8 K/mcL (1.6-8.9); Platelet Count 211 K/mcL (140-400); Red Blood Count 3.98 M/mcL (3.82-4.97); Red Cell Distribution Width 16.5 % (11.5-14.5); Segmented Neutrophils % 69.5 %; White Blood Count 5.5 K/mcL (4.3-11.1)
[2020-10-09] MEDS ORDERED: 0.9 % Sodium Chloride 1,000 ML IVC ONE (14:39)
[2020-10-09 14:45] LABS: Alanine Aminotransferase 7 Units/L (7-52); Albumin 3.6 g/dL (3.5-5.7); Albumin/Globulin Ratio 1.3 (1.1-2.2); Alkaline Phosphatase 69 Units/L (34-104); Aspartate Amino Transferase 14 Units/L (13-39); BUN/Creatinine Ratio 16 (6-26); Bilirubin,Total 0.5 mg/dL (0.3-1.0); Blood Urea Nitrogen 16 mg/dL (8-23); C-Reactive Protein 98 mg/L (Less than 10); Carbon Dioxide 27 mEq/L (23-29); Chloride 103 mEq/L (98-107); Globulin 2.8 g/dL (2.4-3.5); Glucose 148 mg/dL (70-105); Osmolality,Calculated 286 (280-300); Potassium 3.6 mEq/L (3.5-5.1); Sodium 136 mEq/L (136-145); Total Protein 6.4 g/dL (6.4-8.9); eGFR For African Americans > 60 (> 60); eGFR For Non-African Americans 54 (> 60)
[2020-10-09] MEDS ORDERED: Naloxone 0.4 MG/ML INJ IVP PRN (16:27)
[2020-10-09] MEDS ORDERED: Ondansetron ODT 4 MG TAB.RAPDIS PO PRN (17:04)
[2020-10-09] MEDS ORDERED: Metoprolol XL (24 HR) Succ 50 MG TAB.ER.24H PO PRN (17:04)
[2020-10-09] MEDS ORDERED: D5% in Water 1,000 ML IVC PRN (17:21)
[2020-10-09] MEDS ORDERED: Dextrose Gel 15 GM/37.5 ML TUBE PO PRN ×2 (17:21)
[2020-10-09] MEDS ORDERED: *HR* Dextrose 50 % in Water (Vial) 50 ML VIAL IVP PRN (17:21)
[2020-10-09] MEDS: Insulin LISPRO 300 UNITS/3 ML VIAL SQ SCH ×2 (18:11→20:31)
[2020-10-09] MEDS: Nicotine 21 MG PATCH.TD24 TD SCH (18:11)
[2020-10-09] MEDS: Torsemide 20 MG TABLET PO SCH (18:12)
[2020-10-09] MEDS: Doxycycline 100 MG in 0.9 % Sodium Chloride Mini Bag 100 ML IVPB SCH (18:39)
[2020-10-09] MEDS: Ranolazine 500 MG TAB.ER.12H PO SCH (20:49)
[2020-10-09] MEDS: Gabapentin 300 MG CAPSULE PO SCH (20:49)
[2020-10-09] MEDS: ALPRAZolam 0.5 MG TABLET PO SCH (20:50)
[2020-10-09] MEDS: Apixaban 5 MG TABLET PO SCH (20:51)
[2020-10-09] MEDS ORDERED: Doxycycline 100 MG CAPSULE PO SCH (21:00)
[2020-10-10] MEDS: Doxycycline 100 MG in 0.9 % Sodium Chloride Mini Bag 100 ML IVPB SCH ×2 (06:39→17:31)
[2020-10-10] MEDS: Insulin LISPRO 300 UNITS/3 ML VIAL SQ SCH ×4 (08:31→22:13)
[2020-10-10] MEDS: ALPRAZolam 0.5 MG TABLET PO SCH ×3 (08:41→20:36)
[2020-10-10] MEDS: Gabapentin 300 MG CAPSULE PO SCH ×3 (08:41→20:37)
[2020-10-10] MEDS: Apixaban 5 MG TABLET PO SCH ×2 (08:42→20:37)
[2020-10-10] MEDS: Torsemide 20 MG TABLET PO SCH ×2 (08:43→17:31)
[2020-10-10] MEDS: Ranolazine 500 MG TAB.ER.12H PO SCH ×2 (08:43→20:36)
[2020-10-10] MEDS: Loratadine 10 MG TABLET PO SCH (08:43)
[2020-10-10] MEDS: Nicotine 21 MG PATCH.TD24 TD SCH (08:43)
[2020-10-11] MEDS: Doxycycline 100 MG in 0.9 % Sodium Chloride Mini Bag 100 ML IVPB SCH ×2 (06:43→17:42)
[2020-10-11] MEDS: Insulin LISPRO 300 UNITS/3 ML VIAL SQ SCH ×4 (08:07→20:38)
[2020-10-11] MEDS: Gabapentin 300 MG CAPSULE PO SCH ×3 (09:05→20:34)
[2020-10-11] MEDS: Ranolazine 500 MG TAB.ER.12H PO SCH ×2 (09:06→20:34)
[2020-10-11] MEDS: Torsemide 20 MG TABLET PO SCH ×2 (09:06→17:44)
[2020-10-11] MEDS: ALPRAZolam 0.5 MG TABLET PO SCH ×3 (09:06→20:35)
[2020-10-11] MEDS: Apixaban 5 MG TABLET PO SCH ×2 (09:06→20:35)
[2020-10-11] MEDS: Loratadine 10 MG TABLET PO SCH (09:06)
[2020-10-11] MEDS: Nicotine 21 MG PATCH.TD24 TD SCH (09:07)
[2020-10-11] MEDS: Acetaminophen 325 MG TABLET PO PRN (11:02)
[2020-10-11] MEDS ORDERED: Gadolinium Contrast Agent (WT Based) IV PRN (12:49)
[2020-10-12] MEDS: Doxycycline 100 MG in 0.9 % Sodium Chloride Mini Bag 100 ML IVPB SCH ×2 (05:39→18:13)
[2020-10-12 08:13] LABS: Basophils % 0.2 %; Eosinophils # 0.1 K/mcL (0.0-0.6); Eosinophils % 2.2 %; Hematocrit 39.6 % (35.3-44.9); Hemoglobin 12.1 g/dL (11.5-15.4); Immature Granulocytes % 0.5 % (0-4); Lymphocytes # 0.8 K/mcL (0.6-4.6); Lymphocytes % 13.2 %; Mean Corpuscular HGB Conc 30.6 g/dL (31.6-35.5); Mean Corpuscular Hemoglobin 28.2 pg (28.0-33.3); Mean Corpuscular Volume 92.3 fL (83.0-100.0); Mean Platelet Volume 9.7 fL (9.4-12.4); Monocytes # 0.8 K/mcL (0.0-1.3); Monocytes % 12.8 %; Neutrophils # 4.2 K/mcL (1.6-8.9); Platelet Count 227 K/mcL (140-400); Red Blood Count 4.29 M/mcL (3.82-4.97); Red Cell Distribution Width 16.2 % (11.5-14.5); Segmented Neutrophils % 71.1 %; White Blood Count 5.8 K/mcL (4.3-11.1)
[2020-10-12 08:26] LABS: BUN/Creatinine Ratio 17 (6-26); Blood Urea Nitrogen 14 mg/dL (8-23); Carbon Dioxide 36 mEq/L (23-29); Chloride 95 mEq/L (98-107); Glucose 155 mg/dL (70-105); Osmolality,Calculated 288 (280-300); Potassium 2.9 mEq/L (3.5-5.1); Sodium 137 mEq/L (136-145); eGFR For African Americans > 60 (> 60); eGFR For Non-African Americans > 60 (> 60)
[2020-10-12] MEDS: Insulin LISPRO 300 UNITS/3 ML VIAL SQ SCH ×4 (08:51→21:05)
[2020-10-12] MEDS: Torsemide 20 MG TABLET PO SCH ×2 (08:53→18:14)
[2020-10-12] MEDS: Ranolazine 500 MG TAB.ER.12H PO SCH ×2 (08:53→21:11)
[2020-10-12] MEDS: Loratadine 10 MG TABLET PO SCH (08:53)
[2020-10-12] MEDS: ALPRAZolam 0.5 MG TABLET PO SCH ×3 (08:53→21:11)
[2020-10-12] MEDS: Gabapentin 300 MG CAPSULE PO SCH ×3 (08:54→21:11)
[2020-10-12] MEDS: Apixaban 5 MG TABLET PO SCH ×2 (08:54→21:11)
[2020-10-12] MEDS: Nicotine 21 MG PATCH.TD24 TD SCH (08:55)
[2020-10-12] MEDS ORDERED: Potassium Chloride Elixir 20 MEQ/15 ML UDC PO ONE (10:59)
[2020-10-12 11:23] LABS: Magnesium 1.4 mg/dL (1.6-2.6)
[2020-10-12] MEDS: Acetaminophen 325 MG TABLET PO PRN (15:19)
[2020-10-12] MEDS ORDERED: Ibuprofen 600 MG TABLET PO PRN (17:50)
[2020-10-13] MEDS: Doxycycline 100 MG in 0.9 % Sodium Chloride Mini Bag 100 ML IVPB SCH (05:27)
[2020-10-13] MEDS: Ranolazine 500 MG TAB.ER.12H PO SCH ×2 (08:16→21:00)
[2020-10-13] MEDS: ALPRAZolam 0.5 MG TABLET PO SCH ×3 (08:16→20:59)
[2020-10-13] MEDS: Torsemide 20 MG TABLET PO SCH (08:16)
[2020-10-13] MEDS: Gabapentin 300 MG CAPSULE PO SCH ×3 (08:16→21:00)
[2020-10-13] MEDS: Loratadine 10 MG TABLET PO SCH (08:16)
[2020-10-13] MEDS: Nicotine 21 MG PATCH.TD24 TD SCH (08:17)
[2020-10-13] MEDS: Apixaban 5 MG TABLET PO SCH (08:17)
[2020-10-13] MEDS: Insulin LISPRO 300 UNITS/3 ML VIAL SQ SCH ×3 (08:18→22:08)
[2020-10-13 08:33] LABS: Basophils % 0.4 %; Eosinophils # 0.2 K/mcL (0.0-0.6); Eosinophils % 4.4 %; Hematocrit 38.9 % (35.3-44.9); Hemoglobin 11.6 g/dL (11.5-15.4); Immature Granulocytes % 0.4 % (0-4); Lymphocytes # 0.9 K/mcL (0.6-4.6); Mean Corpuscular HGB Conc 29.8 g/dL (31.6-35.5); Mean Corpuscular Hemoglobin 27.3 pg (28.0-33.3); Mean Corpuscular Volume 91.5 fL (83.0-100.0); Mean Platelet Volume 9.4 fL (9.4-12.4); Monocytes # 0.5 K/mcL (0.0-1.3); Monocytes % 10.8 %; Neutrophils # 3.1 K/mcL (1.6-8.9); Platelet Count 211 K/mcL (140-400); Red Blood Count 4.25 M/mcL (3.82-4.97); Red Cell Distribution Width 16.1 % (11.5-14.5); White Blood Count 4.7 K/mcL (4.3-11.1)
[2020-10-13 08:55] LABS: BUN/Creatinine Ratio 30 (6-26); Blood Urea Nitrogen 25 mg/dL (8-23); Calcium 9.3 mg/dL (8.6-10.3); Carbon Dioxide 33 mEq/L (23-29); Chloride 99 mEq/L (98-107); Glucose 134 mg/dL (70-105); Osmolality,Calculated 296 (280-300); Potassium 3.1 mEq/L (3.5-5.1); Sodium 140 mEq/L (136-145); eGFR For African Americans > 60 (> 60); eGFR For Non-African Americans > 60 (> 60)
[2020-10-13] MEDS ORDERED: Potassium Chloride Elixir 20 MEQ/15 ML UDC PO ONE ×2 (15:15→18:43)
[2020-10-13 15:53] LABS: Adenovirus Not Detected (Not Detect); Bordetella Pertussis Not Detected (Not Detect); Chlamydophila pneumoniae Not Detected (Not Detect); Coronavirus 229E Not Detected (Not Detect); Coronavirus HKU1 Not Detected (Not Detect); Coronavirus NL63 Not Detected (Not Detect); Coronavirus OC43 Not Detected (Not Detect); Human Metapneumovirus Not Detected (Not Detect); Human Rhinovirus/Enterovirus Not Detected (Not Detect); Influenza A Subtype 2009 H1 Not Detected (Not Detect); Influenza B Not Detected (Not Detect); Mycoplasma pneumoniae Not Detected (Not Detect); Parainfluenza Virus 1 Not Detected (Not Detect); Parainfluenza Virus 2 Not Detected (Not Detect); Parainfluenza Virus 3 Not Detected (Not Detect); Parainfluenza Virus 4 Not Detected (Not Detect); Respiratory Syncytial Virus Not Detected (Not Detect); SARS-CoV-2 Not Detected (Not Detect)
[2020-10-13] MEDS ORDERED: Levalbuterol Neb 1.25 MG/3 ML IH PRN ×2 (16:39→18:43)
[2020-10-13] MEDS ORDERED: *HR* HYDROmorphone PF 0.5 MG/0.5 ML SYRINGE IVP PRN ×2 (16:40→18:43)
[2020-10-13] MEDS ORDERED: Ondansetron 4 MG/2 ML VIAL IVP PRN ×2 (16:40→18:43)
[2020-10-13] MEDS ORDERED: *HR* FentaNYL (PF) 100 MCG/2 ML VIAL ONE (16:46)
[2020-10-13] MEDS ORDERED: *HR* Propofol 200 MG/20 ML VIAL IVP ONE (16:46)
[2020-10-13] MEDS ORDERED: EPHEDrine 50 MG/ML VIAL ONE (16:58)
[2020-10-13] MEDS ORDERED: Lidocaine -MPF 2% 2 ML VIAL ONE (16:58)
[2020-10-13] MEDS ORDERED: *HR* Vasopressin 20 UNIT/ML VIAL ONE (17:02)
[2020-10-13] MEDS ORDERED: Dexmedetomidine HCl 400 MCG/100 ML MLS IVC ONE (17:03)
[2020-10-13] MEDS ORDERED: Dextrose Gel 15 GM/37.5 ML TUBE PO PRN ×2 (18:43)
[2020-10-13] MEDS ORDERED: D5% in Water 1,000 ML IVC PRN (18:43)
[2020-10-13] MEDS ORDERED: Ibuprofen 600 MG TABLET PO PRN (18:43)
[2020-10-13] MEDS ORDERED: Gadolinium Contrast Agent (WT Based) IV PRN (18:43)
[2020-10-13] MEDS ORDERED: *HR* Dextrose 50 % in Water (Vial) 50 ML VIAL IVP PRN (18:43)
[2020-10-13] MEDS ORDERED: Metoprolol XL (24 HR) Succ 50 MG TAB.ER.24H PO PRN (18:43)
[2020-10-13] MEDS ORDERED: Ondansetron ODT 4 MG TAB.RAPDIS PO PRN (18:43)
[2020-10-13] MEDS ORDERED: Naloxone 0.4 MG/ML INJ IVP PRN (18:43)
[2020-10-13] MEDS: Acetaminophen 325 MG TABLET PO PRN (23:28)
[2020-10-14 05:24] LABS: Basophils % 0.3 %; Eosinophils # 0.3 K/mcL (0.0-0.6); Eosinophils % 3.9 %; Hematocrit 34.9 % (35.3-44.9); Hemoglobin 10.2 g/dL (11.5-15.4); Immature Granulocytes % 0.5 % (0-4); Lymphocytes # 1.2 K/mcL (0.6-4.6); Lymphocytes % 19.5 %; Mean Corpuscular HGB Conc 29.2 g/dL (31.6-35.5); Mean Corpuscular Hemoglobin 26.9 pg (28.0-33.3); Mean Corpuscular Volume 92.1 fL (83.0-100.0); Mean Platelet Volume 9.3 fL (9.4-12.4); Monocytes # 0.6 K/mcL (0.0-1.3); Monocytes % 9.7 %; Neutrophils # 4.2 K/mcL (1.6-8.9); Platelet Count 234 K/mcL (140-400); Red Blood Count 3.79 M/mcL (3.82-4.97); Red Cell Distribution Width 15.9 % (11.5-14.5); Segmented Neutrophils % 66.1 %; White Blood Count 6.4 K/mcL (4.3-11.1)
[2020-10-14 05:45] LABS: BUN/Creatinine Ratio 35 (6-26); Blood Urea Nitrogen 29 mg/dL (8-23); Calcium 9.1 mg/dL (8.6-10.3); Carbon Dioxide 34 mEq/L (23-29); Chloride 96 mEq/L (98-107); Glucose 150 mg/dL (70-105); Osmolality,Calculated 295 (280-300); Potassium 3.4 mEq/L (3.5-5.1); Sodium 138 mEq/L (136-145); eGFR For African Americans > 60 (> 60); eGFR For Non-African Americans > 60 (> 60)
[2020-10-14] MEDS ORDERED: Doxycycline 100 MG in 0.9 % Sodium Chloride Mini Bag 100 ML IVPB SCH (06:00)
[2020-10-14] MEDS: Doxycycline 100 MG in 0.9 % Sodium Chloride Mini Bag 100 ML IVPB SCH (08:00)
[2020-10-14] MEDS: Insulin LISPRO 300 UNITS/3 ML VIAL SQ SCH ×5 (08:03→22:01)
[2020-10-14] MEDS: Torsemide 20 MG TABLET PO SCH ×3 (08:04→17:23)
[2020-10-14] MEDS: Nicotine 21 MG PATCH.TD24 TD SCH (08:14)
[2020-10-14] MEDS: Loratadine 10 MG TABLET PO SCH (08:15)
[2020-10-14] MEDS: Ranolazine 500 MG TAB.ER.12H PO SCH ×2 (08:16→20:00)
[2020-10-14] MEDS: ALPRAZolam 0.5 MG TABLET PO SCH ×3 (08:16→20:00)
[2020-10-14] MEDS: Gabapentin 300 MG CAPSULE PO SCH ×3 (08:16→20:00)
[2020-10-14] MEDS: Acetaminophen 325 MG TABLET PO PRN (11:24)
[2020-10-15] MEDS: Insulin LISPRO 300 UNITS/3 ML VIAL SQ SCH ×4 (07:48→21:28)
[2020-10-15] MEDS: Torsemide 20 MG TABLET PO SCH ×2 (08:28→17:16)
[2020-10-15] MEDS: ALPRAZolam 0.5 MG TABLET PO SCH ×3 (08:28→21:26)
[2020-10-15] MEDS: Loratadine 10 MG TABLET PO SCH (08:29)
[2020-10-15] MEDS: Ranolazine 500 MG TAB.ER.12H PO SCH ×2 (08:30→21:27)
[2020-10-15] MEDS: Gabapentin 300 MG CAPSULE PO SCH ×3 (08:30→21:27)
[2020-10-15] MEDS: Nicotine 21 MG PATCH.TD24 TD SCH (08:31)
[2020-10-15 10:05] LABS: Basophils % 0.3 %; Eosinophils # 0.2 K/mcL (0.0-0.6); Eosinophils % 2.8 %; Hematocrit 33.7 % (35.3-44.9); Hemoglobin 9.9 g/dL (11.5-15.4); Immature Granulocytes % 0.3 % (0-4); Lymphocytes # 1.1 K/mcL (0.6-4.6); Lymphocytes % 17.2 %; Mean Corpuscular HGB Conc 29.4 g/dL (31.6-35.5); Mean Corpuscular Hemoglobin 27.2 pg (28.0-33.3); Mean Corpuscular Volume 92.6 fL (83.0-100.0); Mean Platelet Volume 9.9 fL (9.4-12.4); Monocytes # 0.6 K/mcL (0.0-1.3); Monocytes % 8.9 %; Neutrophils # 4.5 K/mcL (1.6-8.9); Platelet Count 210 K/mcL (140-400); Red Blood Count 3.64 M/mcL (3.82-4.97); Red Cell Distribution Width 15.6 % (11.5-14.5); Segmented Neutrophils % 70.5 %; White Blood Count 6.4 K/mcL (4.3-11.1)
[2020-10-15 10:26] LABS: BUN/Creatinine Ratio 32 (6-26); Blood Urea Nitrogen 25 mg/dL (8-23); Calcium 9.1 mg/dL (8.6-10.3); Carbon Dioxide 32 mEq/L (23-29); Chloride 97 mEq/L (98-107); Glucose 152 mg/dL (70-105); Osmolality,Calculated 289 (280-300); Potassium 3.5 mEq/L (3.5-5.1); Sodium 136 mEq/L (136-145); eGFR For African Americans > 60 (> 60); eGFR For Non-African Americans > 60 (> 60)
[2020-10-15 14:23] LABS: SARS-CoV-2 by NAA NOT DETECTED
[2020-10-15] MEDS: Acetaminophen 325 MG TABLET PO PRN (17:09)
[2020-10-15] MEDS: Apixaban 5 MG TABLET PO SCH (21:27)
[2020-10-16 02:36] LABS: Basophils % 0.4 %; Eosinophils # 0.1 K/mcL (0.0-0.6); Eosinophils % 2.6 %; Hematocrit 28.9 % (35.3-44.9); Hemoglobin 8.7 g/dL (11.5-15.4); Immature Granulocytes % 0.8 % (0-4); Lymphocytes # 1.2 K/mcL (0.6-4.6); Lymphocytes % 22.6 %; Mean Corpuscular HGB Conc 30.1 g/dL (31.6-35.5); Mean Corpuscular Hemoglobin 27.4 pg (28.0-33.3); Mean Corpuscular Volume 90.9 fL (83.0-100.0); Mean Platelet Volume 10.1 fL (9.4-12.4); Monocytes # 0.6 K/mcL (0.0-1.3); Monocytes % 10.5 %; Neutrophils # 3.4 K/mcL (1.6-8.9); Platelet Count 204 K/mcL (140-400); Red Blood Count 3.18 M/mcL (3.82-4.97); Red Cell Distribution Width 15.2 % (11.5-14.5); Segmented Neutrophils % 63.1 %; White Blood Count 5.3 K/mcL (4.3-11.1)
[2020-10-16 02:55] LABS: BUN/Creatinine Ratio 40 (6-26); Blood Urea Nitrogen 35 mg/dL (8-23); Calcium 8.8 mg/dL (8.6-10.3); Carbon Dioxide 36 mEq/L (23-29); Chloride 95 mEq/L (98-107); Glucose 148 mg/dL (70-105); Osmolality,Calculated 295 (280-300); Potassium 3.5 mEq/L (3.5-5.1); Sodium 137 mEq/L (136-145); eGFR For African Americans > 60 (> 60); eGFR For Non-African Americans > 60 (> 60)
[2020-10-16] MEDS: Acetaminophen 325 MG TABLET PO PRN (03:01)
[2020-10-16] MEDS: Insulin LISPRO 300 UNITS/3 ML VIAL SQ SCH ×2 (09:39→13:04)
[2020-10-16] MEDS: Ranolazine 500 MG TAB.ER.12H PO SCH (09:42)
[2020-10-16] MEDS: Torsemide 20 MG TABLET PO SCH (09:42)
[2020-10-16] MEDS: Apixaban 5 MG TABLET PO SCH (09:42)
[2020-10-16] MEDS: ALPRAZolam 0.5 MG TABLET PO SCH ×2 (09:42→14:46)
[2020-10-16] MEDS: Loratadine 10 MG TABLET PO SCH (09:42)
[2020-10-16] MEDS: Gabapentin 300 MG CAPSULE PO SCH ×2 (09:42→14:46)
[2020-10-16] MEDS: Nicotine 21 MG PATCH.TD24 TD SCH (12:50)
[2020-10-16 15:56] VITALS: BP 108/75
== END 2020-10-16 18:08 | disposition home health service (06) | DRG 617 ==
LOC: 3ANU 13:07 → EMEROOARM 13:07 → 3ANU 15:47
PROVIDERS: ADMIT Internal Medicine; ATTEND Internal Medicine

== ENCOUNTER 2020-10-22 16:00 | Observation (INO) ==
[2020-10-22] MEDS ORDERED: Morphine Sulfate 2 MG/ML SYRINGE IVP ONE (16:34)
[2020-10-22 17:02] LABS: Basophils % 0.3 %; Eosinophils # 0.1 K/mcL (0.0-0.6); Eosinophils % 1.4 %; Hematocrit 18.7 % (35.3-44.9); Lymphocytes # 1.3 K/mcL (0.6-4.6); Lymphocytes % 16.2 %; Mean Corpuscular HGB Conc 29.4 g/dL (31.6-35.5); Mean Corpuscular Hemoglobin 29.1 pg (28.0-33.3); Mean Corpuscular Volume 98.9 fL (83.0-100.0); Mean Platelet Volume 9.5 fL (9.4-12.4); Monocytes # 0.6 K/mcL (0.0-1.3); Monocytes % 7.4 %; Neutrophils # 5.9 K/mcL (1.6-8.9); Nucleated Red Blood Cells 0.5 /100 WBC (0); Platelet Count 317 K/mcL (140-400); Red Blood Count 1.89 M/mcL (3.82-4.97); Red Cell Distribution Width 17.7 % (11.5-14.5); Segmented Neutrophils % 73.7 %
[2020-10-22 17:05] LABS: Hemoglobin 5.5 g/dL (11.5-15.4)
[2020-10-22 17:17] LABS: Albumin 3.4 g/dL (3.5-5.7); Albumin/Globulin Ratio 1.3 (1.1-2.2); Bilirubin,Direct 0.1 mg/dL (0.0-0.2); Bilirubin,Indirect 0.3 mg/dL (0.0-1.0); Bilirubin,Total 0.4 mg/dL (0.3-1.0); Calcium 8.8 mg/dL (8.6-10.3); Globulin 2.6 g/dL (2.4-3.5); Potassium 4.9 mEq/L (3.5-5.1); Troponin I 0.05 ng/mL (< 0.04)
[2020-10-22] MEDS ORDERED: Cefepime HCl 1,000 MG in 0.9 % Sodium Chloride Mini Bag 100 ML IVPB STA (17:20)
[2020-10-22] MEDS ORDERED: MetroNIDAZOLE 500 MG/100 ML 500 MG/100 ML BAG IVPB ONE (17:20)
[2020-10-22 17:25] LABS: Hypochromasia Present (Not Present); Polychromasia 1+ (Not Present)
[2020-10-22] MEDS ORDERED: 0.9 % Sodium Chloride 500 ML ONE (17:38)
[2020-10-22] MEDS ORDERED: Cefepime HCl 1,000 MG in Water for inj. (sterile) 10 ML IVP STA (17:40)
[2020-10-22] MEDS ORDERED: Isovue-370 500 ML BOTTLE IVP ONE (17:49)
[2020-10-22] MEDS ORDERED: Ondansetron 4 MG/2 ML VIAL IVP PRN (19:30)
[2020-10-22] MEDS ORDERED: Naloxone 0.4 MG/ML INJ IVP PRN (19:30)
[2020-10-22] MEDS ORDERED: D5% in Water 1,000 ML IVC PRN (19:55)
[2020-10-22] MEDS ORDERED: Dextrose Gel 15 GM/37.5 ML TUBE PO PRN ×2 (19:55)
[2020-10-22] MEDS ORDERED: *HR* Dextrose 50 % in Water (Vial) 50 ML VIAL IVP PRN (19:55)
[2020-10-22 19:56] LABS: INR 2.1; Prothrombin Time 23.3 Seconds (9.4-12.1)
[2020-10-22] MEDS ORDERED: Ipratropium/Albuterol Neb 3 ML IH PRN (20:00)
[2020-10-22] MEDS ORDERED: Metoprolol XL (24 HR) Succ 50 MG TAB.ER.24H PO PRN (20:33)
[2020-10-22] MEDS: Ranolazine 500 MG TAB.ER.12H PO SCH (21:31)
[2020-10-22] MEDS: Gabapentin 300 MG CAPSULE PO SCH (21:31)
[2020-10-22] MEDS: ALPRAZolam 0.5 MG TABLET PO SCH (21:31)
[2020-10-22] MEDS: Pantoprazole 40 MG VIAL IVP SCH (21:31)
[2020-10-22] MEDS ORDERED: *HR* Phytonadione 5 MG TABLET PO ONE (21:41)
[2020-10-22] MEDS: Acetaminophen 325 MG TABLET PO PRN (22:21)
[2020-10-22] MEDS: Insulin LISPRO 300 UNITS/3 ML VIAL SQ SCH (22:21)
[2020-10-22] MEDS ORDERED: *HR* HYDROcodone/Acet 10/325 mg TABLET PO PRN (22:34)
[2020-10-22 23:04] LABS: Hematocrit 21.7 % (35.3-44.9); Hemoglobin 6.4 g/dL (11.5-15.4)
[2020-10-22] MEDS ORDERED: 0.9 % Sodium Chloride 250 ML ONE (23:21)
[2020-10-23] MEDS: Cefepime HCl 1,000 MG in 0.9 % Sodium Chloride Mini Bag 100 ML IVPB SCH ×2 (05:30→17:15)
[2020-10-23 05:45] LABS: Basophils % 0.5 %; Eosinophils # 0.2 K/mcL (0.0-0.6); Eosinophils % 2.5 %; Hematocrit 23.5 % (35.3-44.9); Hemoglobin 7.3 g/dL (11.5-15.4); Lymphocytes # 1.3 K/mcL (0.6-4.6); Lymphocytes % 16.3 %; Mean Corpuscular HGB Conc 31.1 g/dL (31.6-35.5); Mean Corpuscular Hemoglobin 29.9 pg (28.0-33.3); Mean Corpuscular Volume 96.3 fL (83.0-100.0); Mean Platelet Volume 9.6 fL (9.4-12.4); Monocytes # 0.7 K/mcL (0.0-1.3); Monocytes % 8.6 %; Neutrophils # 5.4 K/mcL (1.6-8.9); Nucleated Red Blood Cells 0.9 /100 WBC (0); Platelet Count 261 K/mcL (140-400); Red Blood Count 2.44 M/mcL (3.82-4.97); Red Cell Distribution Width 16.1 % (11.5-14.5); Segmented Neutrophils % 70.1 %; White Blood Count 7.7 K/mcL (4.3-11.1)
[2020-10-23 05:51] LABS: INR 1.5; Prothrombin Time 16.8 Seconds (9.4-12.1)
[2020-10-23] MEDS ORDERED: 0.9 % Sodium Chloride 250 ML ONE (06:20)
[2020-10-23 06:46] LABS: Calcium 8.6 mg/dL (8.6-10.3); Magnesium 1.7 mg/dL (1.6-2.6)
[2020-10-23] MEDS: Insulin LISPRO 300 UNITS/3 ML VIAL SQ SCH ×4 (07:53→21:04)
[2020-10-23] MEDS: Pantoprazole 40 MG VIAL IVP SCH ×2 (08:34→21:04)
[2020-10-23] MEDS ORDERED: *HR* Propofol 200 MG/20 ML VIAL IVP ONE (09:15)
[2020-10-23] MEDS ORDERED: Lidocaine -MPF 2% 2 ML VIAL ONE (09:15)
[2020-10-23] MEDS: Gabapentin 300 MG CAPSULE PO SCH ×3 (10:19→21:03)
[2020-10-23] MEDS: ALPRAZolam 0.5 MG TABLET PO SCH (10:21)
[2020-10-23] MEDS: Ranolazine 500 MG TAB.ER.12H PO SCH ×2 (10:25→21:04)
[2020-10-23] MEDS: Loratadine 10 MG TABLET PO SCH (10:25)
[2020-10-23] MEDS: Ascorbic Acid 500 MG TABLET PO SCH (10:25)
[2020-10-23] MEDS ORDERED: 0.9 % Sodium Chloride 1,000 ML IVC SCH (16:15)
[2020-10-23] MEDS: ALPRAZolam 0.5 MG TABLET PO PRN (17:40)
[2020-10-24] MEDS: Acetaminophen 325 MG TABLET PO PRN (02:11)
[2020-10-24] MEDS: Cefepime HCl 1,000 MG in 0.9 % Sodium Chloride Mini Bag 100 ML IVPB SCH (05:09)
[2020-10-24 07:27] LABS: Basophils % 0.3 %; Eosinophils # 0.3 K/mcL (0.0-0.6); Eosinophils % 2.7 %; Hematocrit 24.2 % (35.3-44.9); Hemoglobin 7.4 g/dL (11.5-15.4); Immature Granulocytes % 1.2 % (0-4); Lymphocytes # 0.9 K/mcL (0.6-4.6); Lymphocytes % 9.1 %; Mean Corpuscular HGB Conc 30.6 g/dL (31.6-35.5); Mean Corpuscular Hemoglobin 29.8 pg (28.0-33.3); Mean Corpuscular Volume 97.6 fL (83.0-100.0); Mean Platelet Volume 9.7 fL (9.4-12.4); Monocytes # 0.6 K/mcL (0.0-1.3); Monocytes % 6.1 %; Neutrophils # 7.8 K/mcL (1.6-8.9); Nucleated Red Blood Cells 0.4 /100 WBC (0); Platelet Count 209 K/mcL (140-400); Red Blood Count 2.48 M/mcL (3.82-4.97); Red Cell Distribution Width 17.7 % (11.5-14.5); Segmented Neutrophils % 80.6 %; White Blood Count 9.6 K/mcL (4.3-11.1)
[2020-10-24 07:49] LABS: BUN/Creatinine Ratio 30 (6-26); Blood Urea Nitrogen 19 mg/dL (8-23); Calcium 8.8 mg/dL (8.6-10.3); Carbon Dioxide 24 mEq/L (23-29); Chloride 111 mEq/L (98-107); Glucose 130 mg/dL (70-105); Osmolality,Calculated 294 (280-300); Potassium 3.4 mEq/L (3.5-5.1); Sodium 140 mEq/L (136-145); eGFR For African Americans > 60 (> 60); eGFR For Non-African Americans > 60 (> 60)
[2020-10-24] MEDS: Insulin LISPRO 300 UNITS/3 ML VIAL SQ SCH ×2 (08:13→13:06)
[2020-10-24] MEDS: Gabapentin 300 MG CAPSULE PO SCH ×2 (08:14→14:15)
[2020-10-24] MEDS: Ascorbic Acid 500 MG TABLET PO SCH (08:14)
[2020-10-24] MEDS: Pantoprazole 40 MG VIAL IVP SCH (08:15)
[2020-10-24] MEDS: Ranolazine 500 MG TAB.ER.12H PO SCH (08:15)
[2020-10-24] MEDS: Loratadine 10 MG TABLET PO SCH (08:25)
[2020-10-24 11:26] VITALS: BP 114/67
[2020-10-24] MEDS: ALPRAZolam 0.5 MG TABLET PO PRN (14:14)
== END 2020-10-24 15:39 | disposition home health service (06) ==
LOC: EMEROOARM 16:00 → 2ANU 16:00 → SUATTDRO 19:43 → 2ANU 19:45
PROVIDERS: ADMIT Internal Medicine; ATTEND Internal Medicine

== ENCOUNTER 2020-12-25 20:11 | Inpatient (IN) ==
[2020-12-25 20:58] LABS: Basophils % 0.3 %; Hemoglobin 9.1 g/dL (11.5-15.4); Lymphocytes % 12.9 %
[2020-12-25 20:59] LABS: Eosinophils # 0.2 K/mcL (0.0-0.6); Eosinophils % 2.2 %; Hematocrit 33.2 % (35.3-44.9); Immature Granulocytes % 0.5 % (0-4); Mean Corpuscular HGB Conc 27.4 g/dL (31.6-35.5); Mean Corpuscular Hemoglobin 27.1 pg (28.0-33.3); Mean Corpuscular Volume 98.8 fL (83.0-100.0); Mean Platelet Volume 10.3 fL (9.4-12.4); Monocytes # 0.6 K/mcL (0.0-1.3); Monocytes % 7.6 %; Neutrophils # 5.9 K/mcL (1.6-8.9); Platelet Count 234 K/mcL (140-400); Red Blood Count 3.36 M/mcL (3.82-4.97); Red Cell Distribution Width 17.1 % (11.5-14.5); Segmented Neutrophils % 76.5 %; White Blood Count 7.7 K/mcL (4.3-11.1)
[2020-12-25] MEDS ORDERED: Isovue-370 500 ML BOTTLE IVP ONE (21:03)
[2020-12-25 21:12] LABS: Hypochromasia Present (Not Present); Platelet Estimate Normal (Normal)
[2020-12-25 21:19] LABS: BUN/Creatinine Ratio 22 (6-26); Blood Urea Nitrogen 16 mg/dL (8-23); Calcium 9.2 mg/dL (8.6-10.3); Carbon Dioxide 23 mEq/L (23-29); Chloride 107 mEq/L (98-107); Glucose 114 mg/dL (70-105); Osmolality,Calculated 284 (280-300); Potassium 5.1 mEq/L (3.5-5.1); Sodium 136 mEq/L (136-145); Troponin I < 0.03 ng/mL (< 0.04); eGFR For African Americans > 60 (> 60); eGFR For Non-African Americans > 60 (> 60)
[2020-12-25] MEDS ORDERED: methylPREDNISolone 125 MG/2 ML VIAL IVP ONE (21:22)
[2020-12-25] MEDS ORDERED: 0.9 % Sodium Chloride 1,000 ML IVC ONE (21:22)
[2020-12-25] MEDS ORDERED: Albuterol 2.5 MG/3 ML NEBULIZER IH ONE (21:24)
[2020-12-25] MEDS: DilTIAZem 50 MG/50 ML IV.SOLN IVC SCH (22:06)
[2020-12-25] MEDS ORDERED: *HR* LORazepam 2 MG/ML VIAL IVP ONE (23:56)
[2020-12-26] MEDS ORDERED: *HR* LORazepam 2 MG/ML VIAL IVP ONE (00:20)
[2020-12-26 00:47] LABS: ABG Base Excess -11 mEq/L (-2 to 3); ABG HCO3 21 mEq/L (21-27); ABG Oxygen Saturation 89 % (95-98); ABG PCO2 81 mmHg (35-45); ABG PH 7.03 pH Units (7.32-7.45); ABG PO2 86 mmHg (85-104); ABG TCO2 24 mEq/L (20-26); Blood Gas Modality NIV
[2020-12-26 00:59] LABS: Adenovirus Not Detected (Not Detect); Bordetella Pertussis Not Detected (Not Detect); Chlamydophila pneumoniae Not Detected (Not Detect); Coronavirus 229E Not Detected (Not Detect); Coronavirus HKU1 Not Detected (Not Detect); Coronavirus NL63 Not Detected (Not Detect); Coronavirus OC43 Not Detected (Not Detect); Human Metapneumovirus Not Detected (Not Detect); Human Rhinovirus/Enterovirus Not Detected (Not Detect); Influenza A Subtype 2009 H1 Not Detected (Not Detect); Influenza B Not Detected (Not Detect); Mycoplasma pneumoniae Not Detected (Not Detect); Parainfluenza Virus 1 Not Detected (Not Detect); Parainfluenza Virus 2 Not Detected (Not Detect); Parainfluenza Virus 3 Not Detected (Not Detect); Parainfluenza Virus 4 Not Detected (Not Detect); Respiratory Syncytial Virus Not Detected (Not Detect); SARS-CoV-2 Not Detected (Not Detect)
[2020-12-26] MEDS: FentaNYL (PF) 1,000 MCG/100 ML IV.SOLN IVC SCH ×3 (01:51→17:51)
[2020-12-26] MEDS ORDERED: Naloxone 0.4 MG/ML INJ IVP PRN (02:34)
[2020-12-26] MEDS ORDERED: Artificial Tears SOLN 15 ML BOTTLE BOTH EYES PRN (02:39)
[2020-12-26] MEDS: DilTIAZem 50 MG/50 ML IV.SOLN IVC SCH ×4 (03:00→21:14)
[2020-12-26] MEDS ORDERED: *HR* Midazolam HCl 5 MG/5 ML VIAL IVP ONE ×2 (03:21→04:02)
[2020-12-26 03:57] LABS: ABG Base Excess -4 mEq/L (-2 to 3); ABG HCO3 24 mEq/L (21-27); ABG Oxygen Saturation 58 % (95-98); ABG PCO2 56 mmHg (35-45); ABG PH 7.23 pH Units (7.32-7.45); ABG PO2 36 mmHg (85-104); ABG TCO2 25 mEq/L (20-26); Blood Gas Modality ASSIST CONTROL; Blood Gas VT 450 cc
[2020-12-26] MEDS ORDERED: Dextrose Gel 15 GM/37.5 ML TUBE PO PRN ×2 (04:27)
[2020-12-26] MEDS ORDERED: D5% in Water 1,000 ML IVC PRN (04:27)
[2020-12-26] MEDS ORDERED: *HR* Dextrose 50 % in Water (Vial) 50 ML VIAL IVP PRN (04:27)
[2020-12-26 04:31] LABS: Basophils % 0.2 %; Eosinophils % 0.1 %; Platelet Count 231 K/mcL (140-400); Segmented Neutrophils % 93.8 %
[2020-12-26] MEDS: methylPREDNISolone 125 MG/2 ML VIAL IVP SCH ×3 (04:32→17:41)
[2020-12-26] MEDS: Artificial Tears SOLN 15 ML BOTTLE BOTH EYES SCH ×5 (04:32→19:56)
[2020-12-26] MEDS: Azithromycin 500 MG in 0.9 % Sodium Chloride 250 ML IVPB SCH (04:32)
[2020-12-26 04:33] LABS: Hematocrit 34.5 % (35.3-44.9); Hemoglobin 9.4 g/dL (11.5-15.4); Immature Granulocytes % 0.9 % (0-4); Lymphocytes # 0.2 K/mcL (0.6-4.6); Lymphocytes % 2.1 %; Mean Corpuscular HGB Conc 27.2 g/dL (31.6-35.5); Mean Corpuscular Hemoglobin 26.9 pg (28.0-33.3); Mean Corpuscular Volume 98.6 fL (83.0-100.0); Mean Platelet Volume 10.9 fL (9.4-12.4); Monocytes # 0.3 K/mcL (0.0-1.3); Monocytes % 2.9 %; Neutrophils # 10.6 K/mcL (1.6-8.9); Nucleated Red Blood Cells 0.3 /100 WBC (0); Red Cell Distribution Width 16.6 % (11.5-14.5); White Blood Count 11.3 K/mcL (4.3-11.1)
[2020-12-26 04:36] LABS: ABG Base Excess -4 mEq/L (-2 to 3); ABG HCO3 23 mEq/L (21-27); ABG Oxygen Saturation 85 % (95-98); ABG PCO2 49 mmHg (35-45); ABG PH 7.27 pH Units (7.32-7.45); ABG PO2 56 mmHg (85-104); ABG TCO2 24 mEq/L (20-26); Blood Gas Modality ASSIST CONTROL; Blood Gas VT 450 cc
[2020-12-26 04:41] LABS: INR 1.7; Prothrombin Time 19.9 Seconds (9.4-12.1)
[2020-12-26 04:50] LABS: Anisocytosis 1+ (Not Present); Platelet Estimate Normal (Normal)
[2020-12-26 05:21] LABS: C-Reactive Protein 15 mg/L (Less than 10); Lactate Dehydrogenase 169 Units/L (140-271)
[2020-12-26 05:23] LABS: Alanine Aminotransferase 8 Units/L (7-52); Albumin 3.4 g/dL (3.5-5.7); Albumin/Globulin Ratio 1.2 (1.1-2.2); Alkaline Phosphatase 91 Units/L (34-104); Aspartate Amino Transferase 15 Units/L (13-39); BUN/Creatinine Ratio 21 (6-26); Bilirubin,Total 0.6 mg/dL (0.3-1.0); Blood Urea Nitrogen 16 mg/dL (8-23); Calcium 8.7 mg/dL (8.6-10.3); Carbon Dioxide 21 mEq/L (23-29); Chloride 109 mEq/L (98-107); Globulin 2.8 g/dL (2.4-3.5); Glucose 197 mg/dL (70-105); Osmolality,Calculated 289 (280-300); Phosphorous 4.6 mg/dL (2.7-4.5); Potassium 5.1 mEq/L (3.5-5.1); Sodium 136 mEq/L (136-145); Total Protein 6.2 g/dL (6.4-8.9); eGFR For African Americans > 60 (> 60); eGFR For Non-African Americans > 60 (> 60)
[2020-12-26] MEDS: Insulin LISPRO 300 UNITS/3 ML VIAL SUBQ SCH ×3 (05:43→17:41)
[2020-12-26 05:52] LABS: Bacteria,Urine Few per hpf (None-Few); Bilirubin,Urine Negative (Negative); Blood,Urine Negative (Negative); Clarity,Urine Clear (Clear); Color,Urine Light-Yellow (Yellow); Glucose,Urine (UA) Normal (Normal); Ketones,Urine Negative (Negative); Leukocyte Esterase,Urine Small (Negative); Nitrite,Urine Positive (Negative); Protein,Urine 50 mg/dL (Neg-Trace); Specific Gravity,Urine > 1.030 (1.010-1.025); Squamous Epithelial Cell,Urine Few per hpf (None-Few); Urobilinogen,Urine Normal (Normal); WBC,Urine 15-30 per hpf (0-3)
[2020-12-26] MEDS: cefTRIAXone 1,000 MG in Water for inj. (sterile) 10 ML IVP SCH (08:00)
[2020-12-26] MEDS: Chlorhexidine Rinse 15 ML MOUTHWASH MM SCH ×2 (08:00→19:24)
[2020-12-26] MEDS: Pantoprazole 40 MG VIAL IVP SCH (08:01)
[2020-12-26] MEDS: Furosemide 40 MG/4 ML VIAL IVP SCH ×2 (08:48→19:56)
[2020-12-26] MEDS ORDERED: *HR* Etomidate 20 MG/10 ML AMPUL IVP ONE (16:34)
[2020-12-26] MEDS ORDERED: *HR* Succinylcholine 200 MG/10 ML VIAL IVP ONE (16:34)
[2020-12-26] MEDS ORDERED: *HR* Heparin 5,000 UNIT/ML VIAL IVP ONE (20:43)
[2020-12-26] MEDS ORDERED: *HR* Heparin 5,000 UNIT/ML VIAL IVP PRN ×2 (20:43)
[2020-12-26] MEDS: Heparin 25,000UNIT/250ML 1/2NS 25,000 UNIT/250 ML IV.SOLN IVC SCH (22:26)
[2020-12-27] MEDS: Artificial Tears SOLN 15 ML BOTTLE BOTH EYES SCH ×6 (00:11→21:05)
[2020-12-27] MEDS: Insulin LISPRO 300 UNITS/3 ML VIAL SUBQ SCH ×4 (00:11→17:11)
[2020-12-27] MEDS: methylPREDNISolone 125 MG/2 ML VIAL IVP SCH ×4 (00:13→17:00)
[2020-12-27] MEDS: FentaNYL (PF) 1,000 MCG/100 ML IV.SOLN IVC SCH ×3 (00:57→19:46)
[2020-12-27] MEDS: DilTIAZem 50 MG/50 ML IV.SOLN IVC SCH ×3 (01:49→14:30)
[2020-12-27 02:29] LABS: Hemoglobin 8.3 g/dL (11.5-15.4); Segmented Neutrophils % 93.8 %
[2020-12-27 02:31] LABS: Hematocrit 29.3 % (35.3-44.9); Immature Granulocytes % 0.5 % (0-4); Lymphocytes # 0.3 K/mcL (0.6-4.6); Lymphocytes % 3.4 %; Mean Corpuscular HGB Conc 28.3 g/dL (31.6-35.5); Mean Corpuscular Hemoglobin 27.4 pg (28.0-33.3); Mean Corpuscular Volume 96.7 fL (83.0-100.0); Mean Platelet Volume 10.8 fL (9.4-12.4); Monocytes # 0.2 K/mcL (0.0-1.3); Monocytes % 2.3 %; Platelet Count 205 K/mcL (140-400); Red Blood Count 3.03 M/mcL (3.82-4.97); Red Cell Distribution Width 16.9 % (11.5-14.5); White Blood Count 9.6 K/mcL (4.3-11.1)
[2020-12-27 02:50] LABS: Alanine Aminotransferase 6 Units/L (7-52); Albumin/Globulin Ratio 1.2 (1.1-2.2); Alkaline Phosphatase 69 Units/L (34-104); Aspartate Amino Transferase 10 Units/L (13-39); BUN/Creatinine Ratio 24 (6-26); Bilirubin,Total 0.4 mg/dL (0.3-1.0); Blood Urea Nitrogen 17 mg/dL (8-23); Calcium 8.6 mg/dL (8.6-10.3); Carbon Dioxide 24 mEq/L (23-29); Chloride 108 mEq/L (98-107); Globulin 2.5 g/dL (2.4-3.5); Glucose 172 mg/dL (70-105); Magnesium 1.8 mg/dL (1.6-2.6); Osmolality,Calculated 292 (280-300); Phosphorous 3.8 mg/dL (2.7-4.5); Potassium 4.1 mEq/L (3.5-5.1); Sodium 138 mEq/L (136-145); Total Protein 5.5 g/dL (6.4-8.9); eGFR For African Americans > 60 (> 60); eGFR For Non-African Americans > 60 (> 60)
[2020-12-27 02:56] LABS: Anisocytosis 2+ (Not Present); Hypochromasia Present (Not Present)
[2020-12-27 02:57] LABS: Platelet Estimate Normal (Normal)
[2020-12-27 03:46] LABS: ABG Base Excess 1 mEq/L (-2 to 3); ABG HCO3 26 mEq/L (21-27); ABG Oxygen Saturation 93 % (95-98); ABG PCO2 44 mmHg (35-45); ABG PH 7.39 pH Units (7.32-7.45); ABG PO2 66 mmHg (85-104); ABG TCO2 28 mEq/L (20-26); Blood Gas Modality ASSIST CONTROL; Blood Gas VT 400 cc
[2020-12-27] MEDS: Azithromycin 500 MG in 0.9 % Sodium Chloride 250 ML IVPB SCH (04:58)
[2020-12-27] MEDS: Pantoprazole 40 MG VIAL IVP SCH (07:16)
[2020-12-27] MEDS: cefTRIAXone 1,000 MG in Water for inj. (sterile) 10 ML IVP SCH (07:19)
[2020-12-27] MEDS: Furosemide 40 MG/4 ML VIAL IVP SCH ×2 (07:20→21:04)
[2020-12-27] MEDS: Chlorhexidine Rinse 15 ML MOUTHWASH MM SCH ×2 (07:20→21:04)
[2020-12-27] MEDS: Ipratropium/Albuterol Neb 3 ML IH PRN (16:10)
[2020-12-27] MEDS: ALPRAZolam 0.5 MG TABLET PO PRN (17:00)
[2020-12-27] MEDS: Ranolazine 500 MG TAB.ER.12H PO SCH (21:04)
[2020-12-27] MEDS: Gabapentin 300 MG CAPSULE PO SCH (21:04)
[2020-12-27] MEDS: Heparin 25,000UNIT/250ML 1/2NS 25,000 UNIT/250 ML IV.SOLN IVC SCH (21:06)
[2020-12-28] MEDS: methylPREDNISolone 125 MG/2 ML VIAL IVP SCH ×5 (00:09→23:45)
[2020-12-28] MEDS: Insulin LISPRO 300 UNITS/3 ML VIAL SUBQ SCH ×4 (00:10→17:06)
[2020-12-28] MEDS: Artificial Tears SOLN 15 ML BOTTLE BOTH EYES SCH ×6 (00:11→19:57)
[2020-12-28] MEDS: Azithromycin 500 MG in 0.9 % Sodium Chloride 250 ML IVPB SCH (03:13)
[2020-12-28] MEDS: DilTIAZem 50 MG/50 ML IV.SOLN IVC SCH (03:55)
[2020-12-28 06:26] LABS: Basophils % 0.1 %; Lymphocytes % 2.6 %
[2020-12-28 06:27] LABS: Hematocrit 35.3 % (35.3-44.9); Hemoglobin 9.3 g/dL (11.5-15.4); Immature Granulocytes % 1.3 % (0-4); Lymphocytes # 0.5 K/mcL (0.6-4.6); Mean Corpuscular HGB Conc 26.3 g/dL (31.6-35.5); Mean Corpuscular Hemoglobin 26.3 pg (28.0-33.3); Mean Corpuscular Volume 99.7 fL (83.0-100.0); Mean Platelet Volume 10.6 fL (9.4-12.4); Monocytes # 0.9 K/mcL (0.0-1.3); Monocytes % 4.5 %; Nucleated Red Blood Cells 0.2 /100 WBC (0); Platelet Count 260 K/mcL (140-400); Red Blood Count 3.54 M/mcL (3.82-4.97); Red Cell Distribution Width 16.8 % (11.5-14.5); Segmented Neutrophils % 91.5 %; White Blood Count 19.3 K/mcL (4.3-11.1)
[2020-12-28 06:37] LABS: Neutrophils # 17.7 K/mcL (1.6-8.9)
[2020-12-28 06:50] LABS: Albumin 3.8 g/dL (3.5-5.7); Albumin/Globulin Ratio 1.4 (1.1-2.2); Bilirubin,Total 0.4 mg/dL (0.3-1.0); Calcium 8.7 mg/dL (8.6-10.3); Globulin 2.8 g/dL (2.4-3.5); Magnesium 2.3 mg/dL (1.6-2.6); Phosphorous 5.8 mg/dL (2.7-4.5); Potassium 4.9 mEq/L (3.5-5.1); Total Protein 6.6 g/dL (6.4-8.9)
[2020-12-28 06:59] LABS: Anisocytosis 1+ (Not Present); Platelet Estimate Normal (Normal)
[2020-12-28] MEDS: Chlorhexidine Rinse 15 ML MOUTHWASH MM SCH ×2 (07:50→19:56)
[2020-12-28] MEDS: Pantoprazole 40 MG VIAL IVP SCH (07:50)
[2020-12-28] MEDS: cefTRIAXone 1,000 MG in Water for inj. (sterile) 10 ML IVP SCH (07:50)
[2020-12-28] MEDS: Ranolazine 500 MG TAB.ER.12H PO SCH ×2 (07:51→19:56)
[2020-12-28] MEDS: Gabapentin 300 MG CAPSULE PO SCH ×3 (07:51→19:56)
[2020-12-28] MEDS: Ipratropium/Albuterol Neb 3 ML IH PRN (08:23)
[2020-12-28] MEDS: Furosemide 40 MG/4 ML VIAL IVP SCH (08:25)
[2020-12-28] MEDS: ALPRAZolam 0.5 MG TABLET PO PRN ×2 (09:31→19:56)
[2020-12-28] MEDS: *HR* Enoxaparin 80 MG/0.8 ML SYRINGE SQ SCH ×2 (10:33→19:58)
[2020-12-28] MEDS ORDERED: *HR* Enoxaparin 30 MG/0.3 ML SYRINGE SQ SCH (18:00)
[2020-12-29] MEDS: Insulin LISPRO 300 UNITS/3 ML VIAL SUBQ SCH ×4 (01:37→20:18)
[2020-12-29] MEDS: Azithromycin 500 MG in 0.9 % Sodium Chloride 250 ML IVPB SCH (03:55)
[2020-12-29 05:28] LABS: Lymphocytes % 2.1 %
[2020-12-29 05:30] LABS: Basophils % 0.1 %; Hematocrit 32.1 % (35.3-44.9); Hemoglobin 8.7 g/dL (11.5-15.4); Immature Granulocytes % 0.8 % (0-4); Lymphocytes # 0.2 K/mcL (0.6-4.6); Mean Corpuscular HGB Conc 27.1 g/dL (31.6-35.5); Mean Corpuscular Hemoglobin 26.7 pg (28.0-33.3); Mean Corpuscular Volume 98.5 fL (83.0-100.0); Mean Platelet Volume 10.9 fL (9.4-12.4); Monocytes # 0.3 K/mcL (0.0-1.3); Monocytes % 3.1 %; Neutrophils # 10.1 K/mcL (1.6-8.9); Nucleated Red Blood Cells 0.7 /100 WBC (0); Platelet Count 176 K/mcL (140-400); Red Blood Count 3.26 M/mcL (3.82-4.97); Red Cell Distribution Width 16.3 % (11.5-14.5); Segmented Neutrophils % 93.9 %; White Blood Count 10.7 K/mcL (4.3-11.1)
[2020-12-29] MEDS: methylPREDNISolone 125 MG/2 ML VIAL IVP SCH (05:46)
[2020-12-29 05:49] LABS: Calcium 8.6 mg/dL (8.6-10.3); Potassium 4.9 mEq/L (3.5-5.1)
[2020-12-29 06:00] LABS: Anisocytosis 1+ (Not Present); Hypochromasia Present (Not Present); Large Platelets Present (Not Present)
[2020-12-29] MEDS ORDERED: *HR* Enoxaparin 40 MG/0.4 ML SYRINGE SQ SCH (06:00)
[2020-12-29 06:01] LABS: Platelet Estimate Normal (Normal); Polychromasia 1+ (Not Present)
[2020-12-29] MEDS: Pantoprazole 40 MG VIAL IVP SCH (08:15)
[2020-12-29] MEDS: Ranolazine 500 MG TAB.ER.12H PO SCH ×2 (08:15→20:16)
[2020-12-29] MEDS: Gabapentin 300 MG CAPSULE PO SCH ×3 (08:15→20:15)
[2020-12-29] MEDS: cefTRIAXone 1,000 MG in Water for inj. (sterile) 10 ML IVP SCH (08:15)
[2020-12-29] MEDS: *HR* Enoxaparin 80 MG/0.8 ML SYRINGE SQ SCH ×2 (10:56→20:16)
[2020-12-29] MEDS ORDERED: Insulin LISPRO 300 UNITS/3 ML VIAL SUBQ SCH ×2 (11:30→21:00)
[2020-12-29] MEDS ORDERED: *HR* Dextrose 50 % in Water (Vial) 50 ML VIAL IVP PRN (13:56)
[2020-12-29] MEDS ORDERED: Naloxone 0.4 MG/ML INJ IVP PRN (13:56)
[2020-12-29] MEDS ORDERED: D5% in Water 1,000 ML IVC PRN (13:56)
[2020-12-29] MEDS ORDERED: Dextrose Gel 15 GM/37.5 ML TUBE PO PRN ×2 (13:56)
[2020-12-29] MEDS ORDERED: MethylPREDNISolone 40 MG/ML VIAL IVP SCH (16:00)
[2020-12-29] MEDS: ALPRAZolam 0.5 MG TABLET PO PRN (20:16)
[2020-12-30 01:16] LABS: Hematocrit 30.7 % (35.3-44.9); Hemoglobin 8.6 g/dL (11.5-15.4); Lymphocytes # 0.3 K/mcL (0.6-4.6); Lymphocytes % 2.4 %; Mean Corpuscular Hemoglobin 26.5 pg (28.0-33.3); Mean Corpuscular Volume 94.8 fL (83.0-100.0); Mean Platelet Volume 10.6 fL (9.4-12.4); Monocytes # 1.2 K/mcL (0.0-1.3); Monocytes % 11.3 %; Nucleated Red Blood Cells 0.5 /100 WBC (0); Platelet Count 165 K/mcL (140-400); Red Blood Count 3.24 M/mcL (3.82-4.97); Red Cell Distribution Width 16.2 % (11.5-14.5); Segmented Neutrophils % 85.3 %; White Blood Count 10.5 K/mcL (4.3-11.1)
[2020-12-30 01:33] LABS: Calcium 8.8 mg/dL (8.6-10.3); Potassium 4.5 mEq/L (3.5-5.1)
[2020-12-30 01:37] LABS: Hypochromasia Present (Not Present); Platelet Estimate Normal (Normal)
[2020-12-30] MEDS: Azithromycin 500 MG in 0.9 % Sodium Chloride 250 ML IVPB SCH (04:17)
[2020-12-30] MEDS: ALPRAZolam 0.5 MG TABLET PO PRN ×3 (04:17→20:00)
[2020-12-30] MEDS ORDERED: predniSONE 20 MG TABLET PO SCH (09:00)
[2020-12-30] MEDS: Pantoprazole 40 MG VIAL IVP SCH (09:05)
[2020-12-30] MEDS: Insulin LISPRO 300 UNITS/3 ML VIAL SUBQ SCH ×4 (09:05→20:32)
[2020-12-30] MEDS: Gabapentin 300 MG CAPSULE PO SCH ×3 (09:06→20:31)
[2020-12-30] MEDS: predniSONE 20 MG TABLET PO SCH (09:06)
[2020-12-30] MEDS: Ranolazine 500 MG TAB.ER.12H PO SCH ×2 (09:07→20:31)
[2020-12-30] MEDS: *HR* Enoxaparin 80 MG/0.8 ML SYRINGE SQ SCH ×2 (09:07→20:31)
[2020-12-30] MEDS: cefTRIAXone 1,000 MG in Water for inj. (sterile) 10 ML IVP SCH (09:07)
[2020-12-31 00:46] LABS: Basophils % 0.1 %; Nucleated Red Blood Cells 0.5 /100 WBC (0); Red Cell Distribution Width 16.1 % (11.5-14.5)
[2020-12-31 00:48] LABS: Hematocrit 32.3 % (35.3-44.9); Immature Granulocytes % 0.9 % (0-4); Lymphocytes # 0.3 K/mcL (0.6-4.6); Lymphocytes % 3.5 %; Mean Corpuscular HGB Conc 27.9 g/dL (31.6-35.5); Mean Corpuscular Hemoglobin 26.8 pg (28.0-33.3); Mean Corpuscular Volume 96.1 fL (83.0-100.0); Monocytes # 0.7 K/mcL (0.0-1.3); Monocytes % 8.7 %; Neutrophils # 7.4 K/mcL (1.6-8.9); Platelet Count 154 K/mcL (140-400); Red Blood Count 3.36 M/mcL (3.82-4.97); Segmented Neutrophils % 86.8 %; White Blood Count 8.5 K/mcL (4.3-11.1)
[2020-12-31 01:07] LABS: BUN/Creatinine Ratio 39 (6-26); Blood Urea Nitrogen 39 mg/dL (8-23); Carbon Dioxide 24 mEq/L (23-29); Chloride 107 mEq/L (98-107); Glucose 230 mg/dL (70-105); Osmolality,Calculated 303 (280-300); Potassium 4.5 mEq/L (3.5-5.1); Sodium 138 mEq/L (136-145); eGFR For African Americans > 60 (> 60); eGFR For Non-African Americans 55 (> 60)
[2020-12-31 01:28] LABS: Hypochromasia Present (Not Present); Platelet Estimate Normal (Normal)
[2020-12-31] MEDS: Azithromycin 500 MG in 0.9 % Sodium Chloride 250 ML IVPB SCH (03:59)
[2020-12-31] MEDS: ALPRAZolam 0.5 MG TABLET PO PRN ×2 (04:00→15:22)
[2020-12-31] MEDS: Insulin LISPRO 300 UNITS/3 ML VIAL SUBQ SCH ×4 (07:39→20:26)
[2020-12-31] MEDS: *HR* Enoxaparin 80 MG/0.8 ML SYRINGE SQ SCH ×2 (09:42→20:25)
[2020-12-31] MEDS: Gabapentin 300 MG CAPSULE PO SCH ×3 (09:42→20:25)
[2020-12-31] MEDS: predniSONE 20 MG TABLET PO SCH (09:42)
[2020-12-31] MEDS: cefTRIAXone 1,000 MG in Water for inj. (sterile) 10 ML IVP SCH (09:43)
[2020-12-31] MEDS: Pantoprazole 40 MG VIAL IVP SCH (09:43)
[2020-12-31] MEDS: Ranolazine 500 MG TAB.ER.12H PO SCH ×2 (09:44→20:24)
[2020-12-31] MEDS: Ipratropium/Albuterol Neb 3 ML IH PRN (15:57)
[2020-12-31] MEDS ORDERED: MENTHOL TP PRN (16:43)
[2020-12-31] MEDS ORDERED: ZINC OXIDE TP PRN (16:43)
[2020-12-31] MEDS: Torsemide 20 MG TABLET PO SCH (17:21)
[2021-01-01] MEDS: ALPRAZolam 0.5 MG TABLET PO PRN ×3 (00:18→22:51)
[2021-01-01] MEDS: Azithromycin 500 MG in 0.9 % Sodium Chloride 250 ML IVPB SCH (03:41)
[2021-01-01 05:50] LABS: Hemoglobin 8.1 g/dL (11.5-15.4); Red Cell Distribution Width 16.1 % (11.5-14.5)
[2021-01-01 05:52] LABS: Basophils % 0.1 %; Eosinophils % 0.4 %; Hematocrit 28.3 % (35.3-44.9); Lymphocytes # 0.5 K/mcL (0.6-4.6); Mean Corpuscular HGB Conc 28.6 g/dL (31.6-35.5); Mean Corpuscular Hemoglobin 26.2 pg (28.0-33.3); Mean Corpuscular Volume 91.6 fL (83.0-100.0); Mean Platelet Volume 11.1 fL (9.4-12.4); Monocytes # 0.7 K/mcL (0.0-1.3); Monocytes % 9.8 %; Neutrophils # 5.6 K/mcL (1.6-8.9); Nucleated Red Blood Cells 0.4 /100 WBC (0); Platelet Count 170 K/mcL (140-400); Red Blood Count 3.09 M/mcL (3.82-4.97); Segmented Neutrophils % 81.7 %; White Blood Count 6.8 K/mcL (4.3-11.1)
[2021-01-01 06:10] LABS: Anisocytosis 1+ (Not Present); Hypochromasia Present (Not Present); Platelet Estimate Normal (Normal)
[2021-01-01 06:11] LABS: BUN/Creatinine Ratio 39 (6-26); Blood Urea Nitrogen 29 mg/dL (8-23); Calcium 8.9 mg/dL (8.6-10.3); Carbon Dioxide 32 mEq/L (23-29); Chloride 105 mEq/L (98-107); Glucose 115 mg/dL (70-105); Osmolality,Calculated 301 (280-300); Potassium 3.9 mEq/L (3.5-5.1); Sodium 142 mEq/L (136-145); eGFR For African Americans > 60 (> 60); eGFR For Non-African Americans > 60 (> 60)
[2021-01-01] MEDS: Insulin LISPRO 300 UNITS/3 ML VIAL SUBQ SCH ×4 (08:33→21:11)
[2021-01-01] MEDS: cefTRIAXone 1,000 MG in Water for inj. (sterile) 10 ML IVP SCH (08:46)
[2021-01-01] MEDS: Gabapentin 300 MG CAPSULE PO SCH ×3 (08:47→21:09)
[2021-01-01] MEDS: Ranolazine 500 MG TAB.ER.12H PO SCH ×2 (08:48→21:09)
[2021-01-01] MEDS: Torsemide 20 MG TABLET PO SCH ×2 (08:48→17:52)
[2021-01-01] MEDS: Ascorbic Acid 500 MG TABLET PO SCH (08:48)
[2021-01-01] MEDS: Loratadine 10 MG TABLET PO SCH (08:48)
[2021-01-01] MEDS: *HR* Enoxaparin 80 MG/0.8 ML SYRINGE SQ SCH ×2 (08:49→21:10)
[2021-01-01] MEDS: predniSONE 20 MG TABLET PO SCH (08:49)
[2021-01-01] MEDS ORDERED: Insulin LISPRO 300 UNITS/3 ML VIAL SUBQ SCH (21:20)
[2021-01-01] MEDS: Ipratropium/Albuterol Neb 3 ML IH PRN (22:13)
[2021-01-02 01:59] LABS: Basophils % 0.1 %; Eosinophils % 0.3 %; Hematocrit 31.3 % (35.3-44.9); Hemoglobin 9.1 g/dL (11.5-15.4); Immature Granulocytes % 1.2 % (0-4); Lymphocytes # 0.7 K/mcL (0.6-4.6); Lymphocytes % 7.9 %; Mean Corpuscular HGB Conc 29.1 g/dL (31.6-35.5); Mean Corpuscular Hemoglobin 26.1 pg (28.0-33.3); Mean Corpuscular Volume 89.9 fL (83.0-100.0); Mean Platelet Volume 10.8 fL (9.4-12.4); Monocytes % 11.2 %; Neutrophils # 6.8 K/mcL (1.6-8.9); Nucleated Red Blood Cells 0.2 /100 WBC (0); Platelet Count 206 K/mcL (140-400); Red Blood Count 3.48 M/mcL (3.82-4.97); Segmented Neutrophils % 79.3 %; White Blood Count 8.6 K/mcL (4.3-11.1)
[2021-01-02 02:20] LABS: BUN/Creatinine Ratio 27 (6-26); Blood Urea Nitrogen 23 mg/dL (8-23); Calcium 9.2 mg/dL (8.6-10.3); Carbon Dioxide 38 mEq/L (23-29); Chloride 94 mEq/L (98-107); Glucose 121 mg/dL (70-105); Osmolality,Calculated 293 (280-300); Potassium 3.1 mEq/L (3.5-5.1); Sodium 139 mEq/L (136-145); eGFR For African Americans > 60 (> 60); eGFR For Non-African Americans > 60 (> 60)
[2021-01-02 07:15] VITALS: BP 124/78
[2021-01-02] MEDS ORDERED: Insulin LISPRO 300 UNITS/3 ML VIAL SUBQ SCH (07:30)
[2021-01-02] MEDS: Torsemide 20 MG TABLET PO SCH (08:14)
[2021-01-02] MEDS: predniSONE 20 MG TABLET PO SCH (08:15)
[2021-01-02] MEDS: Ranolazine 500 MG TAB.ER.12H PO SCH (08:15)
[2021-01-02] MEDS: Ascorbic Acid 500 MG TABLET PO SCH (08:16)
[2021-01-02] MEDS: Gabapentin 300 MG CAPSULE PO SCH (08:16)
[2021-01-02] MEDS: Loratadine 10 MG TABLET PO SCH (08:16)
[2021-01-02] MEDS: cefTRIAXone 1,000 MG in Water for inj. (sterile) 10 ML IVP SCH (08:16)
[2021-01-02] MEDS: ALPRAZolam 0.5 MG TABLET PO PRN (08:21)
[2021-01-02] MEDS: *HR* Enoxaparin 80 MG/0.8 ML SYRINGE SQ SCH (08:22)
[2021-01-02] MEDS ORDERED: Azithromycin 250 MG TABLET PO SCH (09:00)
== END 2021-01-02 10:38 | disposition home or self-care (01) | DRG 208 ==
LOC: ICNU 20:11 → EMEROOARM 20:11 → OBSVTOIN 12-26 01:16 → ICNU 12-26 02:19 → 2NNU 12-29 16:35
PROVIDERS: ADMIT Internal Medicine; ATTEND Internal Medicine

== ENCOUNTER 2021-03-23 20:59 | Inpatient (IN) ==
[2021-03-23] MEDS ORDERED: 0.9 % Sodium Chloride 1,000 ML IVC ONE (21:32)
[2021-03-23] MEDS ORDERED: Isovue-370 500 ML BOTTLE IVP ONE (21:43)
[2021-03-23] MEDS ORDERED: Piperacillin/Tazobactam 3.375 GM in 0.9 % Sodium Chloride Mini Bag 100 ML IVPB ONE (21:54)
[2021-03-23 22:21] LABS: Basophils % 0.2 %; Eosinophils # 0.1 K/mcL (0.0-0.6); Eosinophils % 0.6 %; Hematocrit 41.7 % (35.3-44.9); Hemoglobin 12.7 g/dL (11.5-15.4); Immature Granulocytes % 0.7 % (0-4); Lymphocytes # 0.5 K/mcL (0.6-4.6); Lymphocytes % 4.9 %; Mean Corpuscular HGB Conc 30.5 g/dL (31.6-35.5); Mean Corpuscular Hemoglobin 26.8 pg (28.0-33.3); Mean Platelet Volume 9.2 fL (9.4-12.4); Monocytes # 0.8 K/mcL (0.0-1.3); Monocytes % 7.9 %; Neutrophils # 8.9 K/mcL (1.6-8.9); Platelet Count 208 K/mcL (140-400); Red Blood Count 4.74 M/mcL (3.82-4.97); Red Cell Distribution Width 17.9 % (11.5-14.5); Segmented Neutrophils % 85.7 %; White Blood Count 10.4 K/mcL (4.3-11.1)
[2021-03-23 22:41] LABS: BUN/Creatinine Ratio 16 (6-26); Blood Urea Nitrogen 12 mg/dL (8-23); C-Reactive Protein 236 mg/L (Less than 10); Calcium 9.4 mg/dL (8.6-10.3); Carbon Dioxide 24 mEq/L (23-29); Chloride 103 mEq/L (98-107); Glucose 113 mg/dL (70-105); Osmolality,Calculated 283 (280-300); Potassium 4.4 mEq/L (3.5-5.1); Sodium 136 mEq/L (136-145); eGFR For African Americans > 60 (> 60); eGFR For Non-African Americans > 60 (> 60)
[2021-03-24] MEDS ORDERED: 0.9 % Sodium Chloride 1,000 ML IVC ONE (00:45)
[2021-03-24] MEDS ORDERED: Melatonin 3 MG TABLET PO PRN ×2 (05:24→18:08)
[2021-03-24] MEDS ORDERED: Naloxone 0.4 MG/ML INJ IVP PRN ×2 (05:24→18:08)
[2021-03-24] MEDS ORDERED: Ondansetron 4 MG/2 ML VIAL IVP PRN ×2 (05:24→18:08)
[2021-03-24] MEDS ORDERED: Acetaminophen 325 MG TABLET PO PRN ×2 (05:24→16:16)
[2021-03-24] MEDS ORDERED: Dextrose Gel 15 GM/37.5 ML TUBE PO PRN ×4 (05:31→18:08)
[2021-03-24] MEDS ORDERED: D5% in Water 1,000 ML IVC PRN ×2 (05:31→18:08)
[2021-03-24] MEDS ORDERED: *HR* Dextrose 50 % in Water (Vial) 50 ML VIAL IVP PRN ×2 (05:31→18:08)
[2021-03-24] MEDS: Insulin LISPRO 300 UNITS/3 ML VIAL SUBQ SCH ×2 (09:02→17:51)
[2021-03-24] MEDS: Piperacillin/Tazobactam 3.375 GM in 0.9 % Sodium Chloride Mini Bag 100 ML IVPB SCH ×2 (09:02→23:45)
[2021-03-24 09:42] LABS: Basophils % 0.2 %; Eosinophils # 0.1 K/mcL (0.0-0.6); Hematocrit 41.6 % (35.3-44.9); Hemoglobin 12.7 g/dL (11.5-15.4); Immature Granulocytes % 0.8 % (0-4); Lymphocytes # 0.6 K/mcL (0.6-4.6); Mean Corpuscular HGB Conc 30.5 g/dL (31.6-35.5); Mean Corpuscular Hemoglobin 27.1 pg (28.0-33.3); Mean Corpuscular Volume 88.9 fL (83.0-100.0); Monocytes # 0.8 K/mcL (0.0-1.3); Monocytes % 8.9 %; Neutrophils # 6.9 K/mcL (1.6-8.9); Platelet Count 187 K/mcL (140-400); Red Blood Count 4.68 M/mcL (3.82-4.97); Red Cell Distribution Width 18.1 % (11.5-14.5); Segmented Neutrophils % 82.1 %; White Blood Count 8.4 K/mcL (4.3-11.1)
[2021-03-24 09:48] LABS: INR 1.5; Prothrombin Time 17.3 Seconds (9.4-12.1)
[2021-03-24 09:51] LABS: Activated Partial Thrombo Time 28.3 Seconds (26.0-36.0)
[2021-03-24 09:57] LABS: Alanine Aminotransferase 16 Units/L (7-52); Albumin 3.2 g/dL (3.5-5.7); Alkaline Phosphatase 72 Units/L (34-104); Aspartate Amino Transferase 30 Units/L (13-39); BUN/Creatinine Ratio 14 (6-26); Bilirubin,Total 0.6 mg/dL (0.3-1.0); Blood Urea Nitrogen 9 mg/dL (8-23); Calcium 8.9 mg/dL (8.6-10.3); Carbon Dioxide 21 mEq/L (23-29); Chloride 109 mEq/L (98-107); Globulin 3.2 g/dL (2.4-3.5); Glucose 96 mg/dL (70-105); Osmolality,Calculated 285 (280-300); Potassium 3.8 mEq/L (3.5-5.1); Sodium 138 mEq/L (136-145); Total Protein 6.4 g/dL (6.4-8.9); eGFR For African Americans > 60 (> 60); eGFR For Non-African Americans > 60 (> 60)
[2021-03-24] MEDS ORDERED: Lidocaine -MPF 2% 2 ML VIAL ONE (15:56)
[2021-03-24] MEDS ORDERED: Ondansetron 4 MG/2 ML VIAL ONE (15:56)
[2021-03-24] MEDS ORDERED: *HR* FentaNYL (PF) 100 MCG/2 ML VIAL ONE (15:57)
[2021-03-24] MEDS ORDERED: *HR* Propofol 200 MG/20 ML VIAL IVP ONE (15:57)
[2021-03-24] MEDS ORDERED: Ipratropium/Albuterol Neb 3 ML IH PRN ×2 (16:21→18:08)
[2021-03-24] MEDS ORDERED: Albuterol 2.5 MG/3 ML NEBULIZER IH PRN ×2 (16:22→18:08)
[2021-03-24] MEDS ORDERED: ALPRAZolam 0.5 MG TABLET PO SCH (16:30)
[2021-03-24] MEDS ORDERED: tiZANidine 4 MG TABLET PO PRN ×2 (16:37→18:08)
[2021-03-24] MEDS ORDERED: Gabapentin 300 MG CAPSULE PO PRN ×2 (16:43→18:08)
[2021-03-24] MEDS ORDERED: Lidocaine 1% 0 ML ONE (16:44)
[2021-03-24] MEDS ORDERED: Metoprolol XL (24 HR) Succ 50 MG TAB.ER.24H PO SCH (16:45)
[2021-03-24 17:29] LABS: Adenovirus Not Detected (Not Detect); Bordetella Pertussis Not Detected (Not Detect); Chlamydophila pneumoniae Not Detected (Not Detect); Coronavirus 229E Not Detected (Not Detect); Coronavirus HKU1 Not Detected (Not Detect); Coronavirus NL63 Not Detected (Not Detect); Coronavirus OC43 Not Detected (Not Detect); Human Metapneumovirus Not Detected (Not Detect); Human Rhinovirus/Enterovirus Not Detected (Not Detect); Influenza A Subtype 2009 H1 Not Detected (Not Detect); Influenza B Not Detected (Not Detect); Mycoplasma pneumoniae Not Detected (Not Detect); Parainfluenza Virus 1 Not Detected (Not Detect); Parainfluenza Virus 2 Not Detected (Not Detect); Parainfluenza Virus 3 Not Detected (Not Detect); Parainfluenza Virus 4 Not Detected (Not Detect); Respiratory Syncytial Virus Not Detected (Not Detect); SARS-CoV-2 Not Detected (Not Detect)
[2021-03-24] MEDS ORDERED: Torsemide 20 MG TABLET PO SCH (18:00)
[2021-03-24] MEDS ORDERED: Gabapentin 300 MG CAPSULE PO SCH (21:00)
[2021-03-24] MEDS ORDERED: Ranolazine 500 MG TAB.ER.12H PO SCH (21:00)
[2021-03-24] MEDS: Metoprolol XL (24 HR) Succ 50 MG TAB.ER.24H PO SCH (21:16)
[2021-03-24] MEDS: ALPRAZolam 0.5 MG TABLET PO SCH (21:16)
[2021-03-24] MEDS: Gabapentin 300 MG CAPSULE PO SCH (21:17)
[2021-03-24] MEDS: Ranolazine 500 MG TAB.ER.12H PO SCH (21:17)
[2021-03-24] MEDS: *HR* Heparin 5,000 UNIT/ML VIAL SQ SCH (21:19)
[2021-03-24] MEDS ORDERED: *HR* Heparin 5,000 UNIT/ML VIAL SQ SCH (22:00)
[2021-03-25] MEDS: Insulin LISPRO 300 UNITS/3 ML VIAL SUBQ SCH ×5 (00:34→16:37)
[2021-03-25 03:37] LABS: Hematocrit 45.1 % (35.3-44.9); Hemoglobin 13.5 g/dL (11.5-15.4); Mean Corpuscular HGB Conc 29.9 g/dL (31.6-35.5); Mean Corpuscular Hemoglobin 26.5 pg (28.0-33.3); Mean Corpuscular Volume 88.6 fL (83.0-100.0); Mean Platelet Volume 8.9 fL (9.4-12.4); Platelet Count 225 K/mcL (140-400); Red Blood Count 5.09 M/mcL (3.82-4.97); Red Cell Distribution Width 17.9 % (11.5-14.5); White Blood Count 9.7 K/mcL (4.3-11.1)
[2021-03-25 03:54] LABS: INR 1.5; Prothrombin Time 17.1 Seconds (9.4-12.1)
[2021-03-25 03:58] LABS: BUN/Creatinine Ratio 18 (6-26); Blood Urea Nitrogen 12 mg/dL (8-23); Calcium 9.3 mg/dL (8.6-10.3); Carbon Dioxide 21 mEq/L (23-29); Chloride 110 mEq/L (98-107); Glucose 176 mg/dL (70-105); Magnesium 1.6 mg/dL (1.6-2.6); Osmolality,Calculated 296 (280-300); Potassium 3.9 mEq/L (3.5-5.1); Sodium 141 mEq/L (136-145); eGFR For African Americans > 60 (> 60); eGFR For Non-African Americans > 60 (> 60)
[2021-03-25] MEDS: *HR* Heparin 5,000 UNIT/ML VIAL SQ SCH ×3 (06:24→18:33)
[2021-03-25] MEDS: Piperacillin/Tazobactam 3.375 GM in 0.9 % Sodium Chloride Mini Bag 100 ML IVPB SCH ×3 (08:43→20:47)
[2021-03-25] MEDS: Metoprolol XL (24 HR) Succ 50 MG TAB.ER.24H PO SCH ×2 (08:44→20:46)
[2021-03-25] MEDS: Gabapentin 300 MG CAPSULE PO SCH ×2 (08:45→20:46)
[2021-03-25] MEDS: ALPRAZolam 0.5 MG TABLET PO SCH ×3 (08:45→20:46)
[2021-03-25] MEDS: Ranolazine 500 MG TAB.ER.12H PO SCH ×2 (08:45→20:45)
[2021-03-25] MEDS ORDERED: Ascorbic Acid 500 MG TABLET PO SCH ×2 (09:00)
[2021-03-25] MEDS ORDERED: Ergocalciferol (VIT D2) 50,000 UNIT (1.25MG) CAP PO SCH ×2 (09:00)
[2021-03-25] MEDS: Torsemide 20 MG TABLET PO SCH (18:33)
[2021-03-26] MEDS: Insulin LISPRO 300 UNITS/3 ML VIAL SUBQ SCH ×4 (01:35→21:15)
[2021-03-26] MEDS: Acetaminophen 325 MG TABLET PO PRN ×2 (03:25→21:26)
[2021-03-26 03:38] LABS: Hematocrit 36.8 % (35.3-44.9); Mean Corpuscular HGB Conc 29.6 g/dL (31.6-35.5); Mean Corpuscular Hemoglobin 26.7 pg (28.0-33.3); Mean Corpuscular Volume 90.2 fL (83.0-100.0); Mean Platelet Volume 9.2 fL (9.4-12.4); Platelet Count 187 K/mcL (140-400); Red Blood Count 4.08 M/mcL (3.82-4.97); Red Cell Distribution Width 17.6 % (11.5-14.5); White Blood Count 8.4 K/mcL (4.3-11.1)
[2021-03-26 03:41] LABS: Hemoglobin 10.9 g/dL (11.5-15.4)
[2021-03-26] MEDS ORDERED: *HR* LORazepam 2 MG/ML VIAL IVP ONE (04:19)
[2021-03-26] MEDS: *HR* Heparin 5,000 UNIT/ML VIAL SQ SCH ×3 (04:35→21:15)
[2021-03-26 04:46] LABS: BUN/Creatinine Ratio 23 (6-26); Blood Urea Nitrogen 19 mg/dL (8-23); Calcium 8.6 mg/dL (8.6-10.3); Carbon Dioxide 25 mEq/L (23-29); Chloride 109 mEq/L (98-107); Glucose 142 mg/dL (70-105); Magnesium 1.4 mg/dL (1.6-2.6); Osmolality,Calculated 295 (280-300); Potassium 3.4 mEq/L (3.5-5.1); Sodium 140 mEq/L (136-145); eGFR For African Americans > 60 (> 60); eGFR For Non-African Americans > 60 (> 60)
[2021-03-26] MEDS: Piperacillin/Tazobactam 3.375 GM in 0.9 % Sodium Chloride Mini Bag 100 ML IVPB SCH ×3 (05:23→21:26)
[2021-03-26] MEDS ORDERED: Potassium Chloride 40 MEQ, Lidocaine 1% 2 ML in 0.9 % Sodium Chloride 500 ML IVPB ONE (08:30)
[2021-03-26] MEDS ORDERED: Lidocaine -MPF 2% 2 ML VIAL ONE (08:39)
[2021-03-26] MEDS ORDERED: Lidocaine HCL 4 ML Topical Solution (Laryng-O-Jet Kit Sterile Pak) TP ONE (08:39)
[2021-03-26] MEDS ORDERED: Ondansetron 4 MG/2 ML VIAL ONE (08:39)
[2021-03-26] MEDS ORDERED: *HR* Succinylcholine 200 MG/10 ML VIAL IVP ONE (08:39)
[2021-03-26] MEDS ORDERED: *HR* Propofol 200 MG/20 ML VIAL IVP ONE (08:40)
[2021-03-26] MEDS ORDERED: *HR* FentaNYL (PF) 100 MCG/2 ML VIAL ONE (08:41)
[2021-03-26] MEDS: Gabapentin 300 MG CAPSULE PO SCH ×2 (08:56→21:28)
[2021-03-26] MEDS: Metoprolol XL (24 HR) Succ 50 MG TAB.ER.24H PO SCH ×2 (08:56→21:27)
[2021-03-26] MEDS: ALPRAZolam 0.5 MG TABLET PO SCH ×3 (08:56→21:27)
[2021-03-26] MEDS ORDERED: Heparin 1,000 UNITS/500 mL 500 ML ONE (09:03)
[2021-03-26] MEDS ORDERED: Vancomycin 1,000 MG, Sodium Chloride IRRigation 1,000 ML IR ONE (10:00)
[2021-03-26] MEDS: Torsemide 20 MG TABLET PO SCH (17:11)
[2021-03-27 04:03] LABS: Hematocrit 38.3 % (35.3-44.9); Hemoglobin 11.4 g/dL (11.5-15.4); Mean Corpuscular HGB Conc 29.8 g/dL (31.6-35.5); Mean Corpuscular Hemoglobin 26.7 pg (28.0-33.3); Mean Corpuscular Volume 89.7 fL (83.0-100.0); Platelet Count 185 K/mcL (140-400); Red Blood Count 4.27 M/mcL (3.82-4.97); Red Cell Distribution Width 17.9 % (11.5-14.5); White Blood Count 7.1 K/mcL (4.3-11.1)
[2021-03-27 04:22] LABS: BUN/Creatinine Ratio 16 (6-26); Blood Urea Nitrogen 14 mg/dL (8-23); Calcium 8.7 mg/dL (8.6-10.3); Carbon Dioxide 27 mEq/L (23-29); Chloride 111 mEq/L (98-107); Glucose 101 mg/dL (70-105); Magnesium 1.4 mg/dL (1.6-2.6); Osmolality,Calculated 295 (280-300); Potassium 3.8 mEq/L (3.5-5.1); Sodium 142 mEq/L (136-145); eGFR For African Americans > 60 (> 60); eGFR For Non-African Americans > 60 (> 60)
[2021-03-27] MEDS: *HR* Heparin 5,000 UNIT/ML VIAL SQ SCH ×3 (05:58→21:21)
[2021-03-27] MEDS: Piperacillin/Tazobactam 3.375 GM in 0.9 % Sodium Chloride Mini Bag 100 ML IVPB SCH ×3 (05:58→23:42)
[2021-03-27] MEDS ORDERED: Magnesium Oxide 400 MG TABLET PO ONE (07:34)
[2021-03-27] MEDS: ALPRAZolam 0.5 MG TABLET PO SCH ×3 (08:06→21:20)
[2021-03-27] MEDS: Gabapentin 300 MG CAPSULE PO SCH ×2 (08:07→21:20)
[2021-03-27] MEDS: Metoprolol XL (24 HR) Succ 50 MG TAB.ER.24H PO SCH ×2 (08:07→21:20)
[2021-03-27] MEDS: Insulin LISPRO 300 UNITS/3 ML VIAL SUBQ SCH ×4 (09:01→21:13)
[2021-03-27] MEDS: *HR* OxyCODONE/APAP 7.5/325 TABLET PO PRN (17:32)
[2021-03-27] MEDS: Torsemide 20 MG TABLET PO SCH (17:32)
[2021-03-28] MEDS: *HR* Heparin 5,000 UNIT/ML VIAL SQ SCH ×3 (06:31→22:43)
[2021-03-28] MEDS: Piperacillin/Tazobactam 3.375 GM in 0.9 % Sodium Chloride Mini Bag 100 ML IVPB SCH ×3 (06:31→22:41)
[2021-03-28 07:19] LABS: Hematocrit 38.6 % (35.3-44.9); Hemoglobin 11.8 g/dL (11.5-15.4); Mean Corpuscular HGB Conc 30.6 g/dL (31.6-35.5); Mean Corpuscular Hemoglobin 27.3 pg (28.0-33.3); Mean Corpuscular Volume 89.1 fL (83.0-100.0); Mean Platelet Volume 9.2 fL (9.4-12.4); Platelet Count 188 K/mcL (140-400); Red Blood Count 4.33 M/mcL (3.82-4.97); Red Cell Distribution Width 17.5 % (11.5-14.5); White Blood Count 6.1 K/mcL (4.3-11.1)
[2021-03-28 07:33] LABS: BUN/Creatinine Ratio 13 (6-26); Blood Urea Nitrogen 11 mg/dL (8-23); Calcium 8.4 mg/dL (8.6-10.3); Carbon Dioxide 25 mEq/L (23-29); Chloride 111 mEq/L (98-107); Glucose 105 mg/dL (70-105); Magnesium 1.4 mg/dL (1.6-2.6); Osmolality,Calculated 292 (280-300); Potassium 3.8 mEq/L (3.5-5.1); Sodium 141 mEq/L (136-145); eGFR For African Americans > 60 (> 60); eGFR For Non-African Americans > 60 (> 60)
[2021-03-28] MEDS: ALPRAZolam 0.5 MG TABLET PO SCH ×3 (08:33→21:26)
[2021-03-28] MEDS: Metoprolol XL (24 HR) Succ 50 MG TAB.ER.24H PO SCH ×2 (08:33→21:26)
[2021-03-28] MEDS: Magnesium Oxide 400 MG TABLET PO SCH (08:33)
[2021-03-28] MEDS: Gabapentin 300 MG CAPSULE PO SCH ×2 (08:33→21:26)
[2021-03-28] MEDS: *HR* OxyCODONE/APAP 7.5/325 TABLET PO PRN ×3 (08:33→21:26)
[2021-03-28] MEDS: Insulin LISPRO 300 UNITS/3 ML VIAL SUBQ SCH ×4 (08:47→22:22)
[2021-03-28] MEDS: Torsemide 20 MG TABLET PO SCH (16:58)
[2021-03-29] MEDS: *HR* OxyCODONE/APAP 7.5/325 TABLET PO PRN ×3 (03:28→16:34)
[2021-03-29 05:02] LABS: Hemoglobin 11.1 g/dL (11.5-15.4); Mean Corpuscular Hemoglobin 26.4 pg (28.0-33.3); Mean Corpuscular Volume 87.9 fL (83.0-100.0); Mean Platelet Volume 9.3 fL (9.4-12.4); Platelet Count 190 K/mcL (140-400); Red Blood Count 4.21 M/mcL (3.82-4.97); Red Cell Distribution Width 17.3 % (11.5-14.5); White Blood Count 5.6 K/mcL (4.3-11.1)
[2021-03-29 05:22] LABS: BUN/Creatinine Ratio 13 (6-26); Blood Urea Nitrogen 10 mg/dL (8-23); Calcium 8.3 mg/dL (8.6-10.3); Carbon Dioxide 26 mEq/L (23-29); Chloride 110 mEq/L (98-107); Glucose 96 mg/dL (70-105); Magnesium 1.4 mg/dL (1.6-2.6); Osmolality,Calculated 291 (280-300); Potassium 3.7 mEq/L (3.5-5.1); Sodium 141 mEq/L (136-145); eGFR For African Americans > 60 (> 60); eGFR For Non-African Americans > 60 (> 60)
[2021-03-29] MEDS: *HR* Heparin 5,000 UNIT/ML VIAL SQ SCH ×2 (05:55→12:14)
[2021-03-29] MEDS: Piperacillin/Tazobactam 3.375 GM in 0.9 % Sodium Chloride Mini Bag 100 ML IVPB SCH ×2 (05:55→14:31)
[2021-03-29] MEDS: Insulin LISPRO 300 UNITS/3 ML VIAL SUBQ SCH ×2 (10:14→12:15)
[2021-03-29] MEDS: Magnesium Oxide 400 MG TABLET PO SCH (10:18)
[2021-03-29] MEDS: Gabapentin 300 MG CAPSULE PO SCH (10:18)
[2021-03-29] MEDS: Metoprolol XL (24 HR) Succ 50 MG TAB.ER.24H PO SCH (10:19)
[2021-03-29] MEDS: ALPRAZolam 0.5 MG TABLET PO SCH ×2 (10:19→14:54)
[2021-03-29 14:37] VITALS: BP 122/82
== END 2021-03-29 16:48 | disposition home or self-care (01) | DRG 616 ==
LOC: EMEROOARM 20:59 → 3NENU 20:59 → 3ANU 03-24 05:52
PROVIDERS: ADMIT Family Medicine; ATTEND Family Medicine

== ENCOUNTER 2021-04-19 16:44 | Inpatient (IN) ==
[2021-04-19 17:55] LABS: Basophils % 0.4 %; Eosinophils # 0.3 K/mcL (0.0-0.6); Eosinophils % 3.1 %; Hematocrit 29.4 % (35.3-44.9); Hemoglobin 8.7 g/dL (11.5-15.4); Immature Granulocytes % 0.7 % (0-4); Lymphocytes # 1.2 K/mcL (0.6-4.6); Mean Corpuscular HGB Conc 29.6 g/dL (31.6-35.5); Mean Corpuscular Hemoglobin 27.3 pg (28.0-33.3); Mean Corpuscular Volume 92.2 fL (83.0-100.0); Mean Platelet Volume 10.1 fL (9.4-12.4); Monocytes # 1.2 K/mcL (0.0-1.3); Monocytes % 12.9 %; Neutrophils # 6.4 K/mcL (1.6-8.9); Platelet Count 235 K/mcL (140-400); Red Blood Count 3.19 M/mcL (3.82-4.97); Red Cell Distribution Width 19.4 % (11.5-14.5); Segmented Neutrophils % 69.9 %; White Blood Count 9.1 K/mcL (4.3-11.1)
[2021-04-19 18:02] LABS: INR 1.6; Prothrombin Time 18.6 Seconds (9.4-12.1)
[2021-04-19 18:05] LABS: Activated Partial Thrombo Time 31.5 Seconds (26.0-36.0)
[2021-04-19 18:42] LABS: Thyroid Stimulating Hormone 2.379 mcIU/mL (0.340-5.600); Troponin I < 0.03 ng/mL (< 0.04)
[2021-04-19 18:55] LABS: Alanine Aminotransferase 18 Units/L (7-52); Albumin 3.1 g/dL (3.5-5.7); Albumin/Globulin Ratio 0.9 (1.1-2.2); Alkaline Phosphatase 59 Units/L (34-104); Aspartate Amino Transferase 24 Units/L (13-39); BUN/Creatinine Ratio 29 (6-26); Bilirubin,Direct 0.1 mg/dL (0.0-0.2); Bilirubin,Indirect 0.4 mg/dL (0.0-1.0); Bilirubin,Total 0.5 mg/dL (0.3-1.0); Blood Urea Nitrogen 24 mg/dL (8-23); Calcium 8.7 mg/dL (8.6-10.3); Carbon Dioxide 21 mEq/L (23-29); Chloride 102 mEq/L (98-107); Creatine Kinase 23 Units/L (30-223); Ethanol < 10 mg/dL (Less than 10); Globulin 3.3 g/dL (2.4-3.5); Glucose 78 mg/dL (70-105); Osmolality,Calculated 285 (280-300); Potassium 5.1 mEq/L (3.5-5.1); Sodium 136 mEq/L (136-145); Total Protein 6.4 g/dL (6.4-8.9); eGFR For African Americans > 60 (> 60); eGFR For Non-African Americans > 60 (> 60)
[2021-04-19 19:04] LABS: Bilirubin,Urine Negative (Negative); Blood,Urine Negative (Negative); Clarity,Urine Clear (Clear); Color,Urine Light-Yellow (Yellow); Glucose,Urine (UA) Normal (Normal); Ketones,Urine Negative (Negative); Leukocyte Esterase,Urine Negative (Negative); Nitrite,Urine Negative (Negative); Protein,Urine Negative (Neg-Trace); Specific Gravity,Urine 1.018 (1.010-1.025); Urobilinogen,Urine Normal (Normal)
[2021-04-19 19:13] LABS: Amphetamine Screen,Urine Negative ng/mL (Cutoff=1000); Barbiturate Screen,Urine Negative ng/mL (Cutoff=200); Benzodiazepines Screen,Urine Positive ng/mL (Cutoff=200); Cannabinoid Screen,Urine Positive ng/mL (Cutoff = 50); Cocaine Screen,Urine Negative ng/mL (Cutoff= 300); Opiate Screen,Urine Negative ng/mL (Cutoff=300); Phencyclidine Screen,Urine Negative ng/mL (Cutoff=25)
[2021-04-19] MEDS ORDERED: methylPREDNISolone 125 MG/2 ML VIAL IVP ONE (19:25)
[2021-04-19] MEDS ORDERED: Ipratropium/Albuterol Neb 3 ML IH ONE (19:25)
[2021-04-19] MEDS ORDERED: cefTRIAXone 1,000 MG in 0.9 % Sodium Chloride Mini Bag 100 ML IVPB ONE (19:41)
[2021-04-19] MEDS ORDERED: CefTRIAXone 1,000 MG VIAL ONE (20:00)
[2021-04-19] MEDS ORDERED: cefTRIAXone 1,000 MG in Water for inj. (sterile) 10 ML IVP ONE (20:12)
[2021-04-19] MEDS ORDERED: Ondansetron 4 MG/2 ML VIAL IVP PRN (20:17)
[2021-04-19] MEDS ORDERED: Naloxone 0.4 MG/ML INJ IVP PRN (20:17)
[2021-04-19] MEDS ORDERED: Azithromycin 500 MG in 0.9 % Sodium Chloride 250 ML IVPB SCH (21:00)
[2021-04-19 22:18] LABS: ABG Base Excess 3 mEq/L (-2 to 3); ABG HCO3 28 mEq/L (21-27); ABG Oxygen Saturation 96 % (95-98); ABG PCO2 44 mmHg (35-45); ABG PH 7.41 pH Units (7.32-7.45); ABG PO2 84 mmHg (85-104); ABG TCO2 29 mEq/L (20-26)
[2021-04-19] MEDS: Ipratropium/Albuterol Neb 3 ML IH SCH (23:07)
[2021-04-20] MEDS: Ipratropium/Albuterol Neb 3 ML IH SCH ×6 (03:40→23:05)
[2021-04-20 06:13] LABS: Hematocrit 30.1 % (35.3-44.9); Hemoglobin 9.2 g/dL (11.5-15.4); Mean Corpuscular HGB Conc 30.6 g/dL (31.6-35.5); Mean Corpuscular Hemoglobin 27.7 pg (28.0-33.3); Mean Corpuscular Volume 90.7 fL (83.0-100.0); Mean Platelet Volume 10.2 fL (9.4-12.4); Platelet Count 242 K/mcL (140-400); Red Blood Count 3.32 M/mcL (3.82-4.97); Red Cell Distribution Width 19.5 % (11.5-14.5); White Blood Count 7.1 K/mcL (4.3-11.1)
[2021-04-20 06:39] LABS: % Iron Saturation 3 % (15-50); BUN/Creatinine Ratio 36 (6-26); Blood Urea Nitrogen 24 mg/dL (8-23); Carbon Dioxide 25 mEq/L (23-29); Chloride 105 mEq/L (98-107); Glucose 169 mg/dL (70-105); Iron 10 mcg/dL (50-170); Osmolality,Calculated 296 (280-300); Potassium 4.5 mEq/L (3.5-5.1); Sodium 139 mEq/L (136-145); Transferrin 259 mg/dL (203-362); eGFR For African Americans > 60 (> 60); eGFR For Non-African Americans > 60 (> 60)
[2021-04-20 06:50] LABS: Ferritin 52 ng/mL (10-120)
[2021-04-20 06:57] LABS: Folate 13.5 ng/mL (3.0-16.0)
[2021-04-20] MEDS ORDERED: Loratadine 10 MG TABLET PO PRN (08:35)
[2021-04-20] MEDS ORDERED: Acetaminophen 325 MG TABLET PO PRN (08:35)
[2021-04-20] MEDS: Piperacillin/Tazobactam 3.375 GM in 0.9 % Sodium Chloride Mini Bag 100 ML IVPB SCH ×2 (09:06→15:09)
[2021-04-20] MEDS: MethylPREDNISolone 40 MG/ML VIAL IVP SCH ×3 (09:07→13:28)
[2021-04-20] MEDS: Ranolazine 500 MG TAB.ER.12H PO SCH ×2 (09:07→20:05)
[2021-04-20] MEDS: Azithromycin 250 MG TABLET PO SCH (15:09)
[2021-04-20] MEDS: Torsemide 20 MG TABLET PO SCH (16:54)
[2021-04-20] MEDS: Metoprolol XL (24 HR) Succ 50 MG TAB.ER.24H PO SCH ×2 (16:56→20:05)
[2021-04-21] MEDS: Piperacillin/Tazobactam 3.375 GM in 0.9 % Sodium Chloride Mini Bag 100 ML IVPB SCH ×4 (00:08→23:40)
[2021-04-21] MEDS: Ipratropium/Albuterol Neb 3 ML IH SCH ×5 (03:59→20:23)
[2021-04-21] MEDS: Ranolazine 500 MG TAB.ER.12H PO SCH ×2 (08:01→20:04)
[2021-04-21] MEDS: Metoprolol XL (24 HR) Succ 50 MG TAB.ER.24H PO SCH ×2 (08:01→20:04)
[2021-04-21] MEDS: Azithromycin 250 MG TABLET PO SCH (08:02)
[2021-04-21] MEDS ORDERED: predniSONE 20 MG TABLET PO SCH (09:00)
[2021-04-21] MEDS: Torsemide 20 MG TABLET PO SCH (16:04)
[2021-04-21] MEDS: *HR* Heparin 5,000 UNIT/ML VIAL SQ SCH (16:04)
[2021-04-21] MEDS ORDERED: ALPRAZolam 0.5 MG TABLET PO ONE (21:00)
[2021-04-21 23:47] LABS: Influenza A PCR Negative (Negative); Influenza B PCR Negative (Negative); Resp. Syncytial Virus PCR Negative (Negative); SARS-CoV-2 by PCR (In House) Negative (Negative)
[2021-04-22] MEDS: Ipratropium/Albuterol Neb 3 ML IH SCH ×7 (00:21→22:49)
[2021-04-22] MEDS: *HR* Heparin 5,000 UNIT/ML VIAL SQ SCH ×2 (04:44→16:31)
[2021-04-22] MEDS: Metoprolol XL (24 HR) Succ 50 MG TAB.ER.24H PO SCH ×2 (08:07→21:32)
[2021-04-22] MEDS: Ranolazine 500 MG TAB.ER.12H PO SCH ×2 (08:07→21:32)
[2021-04-22] MEDS: Azithromycin 250 MG TABLET PO SCH (08:07)
[2021-04-22] MEDS: Piperacillin/Tazobactam 3.375 GM in 0.9 % Sodium Chloride Mini Bag 100 ML IVPB SCH ×3 (08:08→23:24)
[2021-04-22] MEDS ORDERED: CeFAZolin Syr 2,000MG/20 ML 2,000 MG/20 ML SYRINGE IVPB ONE (13:08)
[2021-04-22] MEDS ORDERED: Ropivacaine/PF 0.5% 30 ML VIAL ONE (13:12)
[2021-04-22] MEDS ORDERED: Lidocaine -MPF 2% 5 ML VIAL ONE (13:12)
[2021-04-22] MEDS ORDERED: *HR* Midazolam HCl 2 MG/2 ML VIAL ONE (13:15)
[2021-04-22] MEDS ORDERED: *HR* FentaNYL (PF) 100 MCG/2 ML VIAL ONE ×2 (13:15→14:57)
[2021-04-22] MEDS ORDERED: Vancomycin 1,000 MG VIAL ONE (13:44)
[2021-04-22] MEDS ORDERED: *HR* Vasopressin 20 UNIT/ML VIAL ONE (13:48)
[2021-04-22] MEDS ORDERED: *HR* Norepinephrine 4 MG/4 ML VIAL IVC ONE (13:48)
[2021-04-22] MEDS ORDERED: *HR* Propofol 200 MG/20 ML VIAL IVP ONE (13:53)
[2021-04-22] MEDS ORDERED: Ondansetron 4 MG/2 ML VIAL ONE (13:53)
[2021-04-22] MEDS ORDERED: Lidocaine -MPF 2% 2 ML VIAL ONE (13:53)
[2021-04-22] MEDS: Torsemide 20 MG TABLET PO SCH ×2 (16:40→17:44)
[2021-04-22] MEDS ORDERED: Ondansetron 4 MG/2 ML VIAL IVP PRN (16:51)
[2021-04-22] MEDS ORDERED: Naloxone 0.4 MG/ML INJ IVP PRN (16:51)
[2021-04-22] MEDS ORDERED: Loratadine 10 MG TABLET PO PRN (16:51)
[2021-04-22] MEDS: ALPRAZolam 0.5 MG TABLET PO SCH (21:32)
[2021-04-23] MEDS ORDERED: Piperacillin/Tazobactam 3.375 GM in 0.9 % Sodium Chloride Mini Bag 100 ML IVPB SCH
[2021-04-23] MEDS: Ipratropium/Albuterol Neb 3 ML IH SCH ×6 (04:01→23:26)
[2021-04-23] MEDS: *HR* Heparin 5,000 UNIT/ML VIAL SQ SCH ×2 (05:15→16:10)
[2021-04-23] MEDS ORDERED: *HR* HYDROcodone/Acet 5/325 mg TABLET PO PRN (05:16)
[2021-04-23 06:58] LABS: Basophils % 0.2 %; Eosinophils % 0.3 %; Hematocrit 25.8 % (35.3-44.9); Hemoglobin 7.7 g/dL (11.5-15.4); Immature Granulocytes % 0.4 % (0-4); Lymphocytes # 1.3 K/mcL (0.6-4.6); Lymphocytes % 12.2 %; Mean Corpuscular HGB Conc 29.8 g/dL (31.6-35.5); Mean Corpuscular Hemoglobin 27.4 pg (28.0-33.3); Mean Corpuscular Volume 91.8 fL (83.0-100.0); Mean Platelet Volume 9.8 fL (9.4-12.4); Monocytes # 1.3 K/mcL (0.0-1.3); Monocytes % 12.2 %; Neutrophils # 7.9 K/mcL (1.6-8.9); Platelet Count 280 K/mcL (140-400); Red Blood Count 2.81 M/mcL (3.82-4.97); Red Cell Distribution Width 18.6 % (11.5-14.5); Segmented Neutrophils % 74.7 %; White Blood Count 10.5 K/mcL (4.3-11.1)
[2021-04-23] MEDS ORDERED: *HR* OxyCODONE Immed Rel 5 MG TABLET PO PRN ×2 (08:02→08:42)
[2021-04-23] MEDS: Ranolazine 500 MG TAB.ER.12H PO SCH ×2 (08:40→19:27)
[2021-04-23] MEDS: ALPRAZolam 0.5 MG TABLET PO SCH ×2 (08:40→19:27)
[2021-04-23] MEDS: Metoprolol XL (24 HR) Succ 50 MG TAB.ER.24H PO SCH ×2 (08:41→19:27)
[2021-04-23] MEDS: Piperacillin/Tazobactam 3.375 GM in 0.9 % Sodium Chloride Mini Bag 100 ML IVPB SCH ×2 (08:41→16:05)
[2021-04-23] MEDS ORDERED: Azithromycin 250 MG TABLET PO SCH (09:00)
[2021-04-23] MEDS: *HR* OxyCODONE Immed Rel 5 MG TABLET PO PRN ×3 (09:05→19:27)
[2021-04-23 10:07] LABS: Hematocrit 26.6 % (35.3-44.9); Hemoglobin 7.9 g/dL (11.5-15.4)
[2021-04-23 10:29] LABS: BUN/Creatinine Ratio 16 (6-26); Blood Urea Nitrogen 14 mg/dL (8-23); Calcium 8.4 mg/dL (8.6-10.3); Carbon Dioxide 27 mEq/L (23-29); Chloride 106 mEq/L (98-107); Glucose 155 mg/dL (70-105); Osmolality,Calculated 304 (280-300); Potassium 3.3 mEq/L (3.5-5.1); Sodium 145 mEq/L (136-145); eGFR For African Americans > 60 (> 60); eGFR For Non-African Americans > 60 (> 60)
[2021-04-23] MEDS ORDERED: Morphine Sulfate 2 MG/ML SYRINGE IVP ONE (10:58)
[2021-04-23] MEDS: Torsemide 20 MG TABLET PO SCH (16:05)
[2021-04-23] MEDS ORDERED: *HR* HYDROmorphone (PF) 1 MG/ML SYRINGE IVP ONE ×3 (16:13→23:06)
[2021-04-23] MEDS: Gabapentin 300 MG CAPSULE PO SCH (19:27)
[2021-04-23] MEDS ORDERED: Ketorolac 30 MG/ML VIAL IVP ONE (21:54)
[2021-04-24] MEDS: *HR* OxyCODONE Immed Rel 5 MG TABLET PO PRN ×3 (01:02→21:25)
[2021-04-24 02:14] LABS: Eosinophils % 1.5 %; Immature Granulocytes % 0.6 % (0-4); Red Cell Distribution Width 18.6 % (11.5-14.5)
[2021-04-24 02:16] LABS: Basophils % 0.4 %; Eosinophils # 0.2 K/mcL (0.0-0.6); Hemoglobin 8.1 g/dL (11.5-15.4); Lymphocytes # 1.9 K/mcL (0.6-4.6); Lymphocytes % 17.8 %; Mean Corpuscular HGB Conc 28.9 g/dL (31.6-35.5); Mean Corpuscular Hemoglobin 27.6 pg (28.0-33.3); Mean Corpuscular Volume 95.2 fL (83.0-100.0); Mean Platelet Volume 9.8 fL (9.4-12.4); Monocytes # 1.5 K/mcL (0.0-1.3); Monocytes % 13.6 %; Platelet Count 288 K/mcL (140-400); Red Blood Count 2.94 M/mcL (3.82-4.97); Segmented Neutrophils % 66.1 %; White Blood Count 10.7 K/mcL (4.3-11.1)
[2021-04-24 02:35] LABS: BUN/Creatinine Ratio 16 (6-26); Blood Urea Nitrogen 16 mg/dL (8-23); Carbon Dioxide 24 mEq/L (23-29); Chloride 105 mEq/L (98-107); Glucose 130 mg/dL (70-105); Magnesium 2.8 mg/dL (1.6-2.6); Osmolality,Calculated 287 (280-300); Phosphorous 3.9 mg/dL (2.7-4.5); Sodium 137 mEq/L (136-145); eGFR For African Americans > 60 (> 60); eGFR For Non-African Americans 53 (> 60)
[2021-04-24 02:39] LABS: Anisocytosis 1+ (Not Present); Neutrophils # 7.1 K/mcL (1.6-8.9); Platelet Estimate Normal (Normal)
[2021-04-24] MEDS: Ipratropium/Albuterol Neb 3 ML IH SCH ×6 (03:36→22:58)
[2021-04-24] MEDS: *HR* Heparin 5,000 UNIT/ML VIAL SQ SCH ×2 (05:22→18:07)
[2021-04-24] MEDS: Acetaminophen 325 MG TABLET PO PRN (05:27)
[2021-04-24] MEDS: Ranolazine 500 MG TAB.ER.12H PO SCH ×2 (08:14→20:02)
[2021-04-24] MEDS: ALPRAZolam 0.5 MG TABLET PO SCH ×2 (08:14→20:02)
[2021-04-24] MEDS: Metoprolol XL (24 HR) Succ 50 MG TAB.ER.24H PO SCH ×2 (08:15→20:02)
[2021-04-24] MEDS: Gabapentin 300 MG CAPSULE PO SCH ×2 (08:15→20:02)
[2021-04-24] MEDS ORDERED: 0.9 % Sodium Chloride 500 ML IVC ONE (14:10)
[2021-04-24] MEDS: Torsemide 20 MG TABLET PO SCH (18:07)
[2021-04-25] MEDS ORDERED: Ketorolac 30 MG/ML VIAL IVP ONE (01:09)
[2021-04-25] MEDS: *HR* OxyCODONE Immed Rel 5 MG TABLET PO PRN ×4 (01:49→18:10)
[2021-04-25] MEDS: Ipratropium/Albuterol Neb 3 ML IH SCH ×6 (03:52→22:56)
[2021-04-25] MEDS: *HR* Heparin 5,000 UNIT/ML VIAL SQ SCH ×2 (06:15→18:03)
[2021-04-25 06:18] LABS: Hematocrit 24.7 % (35.3-44.9); Hemoglobin 7.2 g/dL (11.5-15.4); Mean Corpuscular HGB Conc 29.1 g/dL (31.6-35.5); Mean Corpuscular Volume 92.5 fL (83.0-100.0); Mean Platelet Volume 9.8 fL (9.4-12.4); Platelet Count 241 K/mcL (140-400); Red Blood Count 2.67 M/mcL (3.82-4.97); Red Cell Distribution Width 18.3 % (11.5-14.5); White Blood Count 10.8 K/mcL (4.3-11.1)
[2021-04-25 06:27] LABS: Estimated Average Glucose 117 mg/dl; Hemoglobin A1C 5.7 %
[2021-04-25 06:51] LABS: BUN/Creatinine Ratio 14 (6-26); Blood Urea Nitrogen 12 mg/dL (8-23); Calcium 8.3 mg/dL (8.6-10.3); Carbon Dioxide 27 mEq/L (23-29); Chloride 102 mEq/L (98-107); Glucose 138 mg/dL (70-105); Magnesium 1.6 mg/dL (1.6-2.6); Osmolality,Calculated 284 (280-300); Phosphorous 2.3 mg/dL (2.7-4.5); Sodium 136 mEq/L (136-145); eGFR For African Americans > 60 (> 60); eGFR For Non-African Americans > 60 (> 60)
[2021-04-25] MEDS: Metoprolol XL (24 HR) Succ 50 MG TAB.ER.24H PO SCH ×2 (08:41→19:49)
[2021-04-25] MEDS: Gabapentin 300 MG CAPSULE PO SCH ×2 (08:41→19:49)
[2021-04-25] MEDS: Calcium Gluconate 1gm/50mL 1 GM/50 ML BAG IVPB SCH (08:41)
[2021-04-25] MEDS: ALPRAZolam 0.5 MG TABLET PO SCH ×2 (08:41→19:49)
[2021-04-25] MEDS: Ranolazine 500 MG TAB.ER.12H PO SCH ×2 (08:51→19:49)
[2021-04-25] MEDS: Insulin LISPRO 300 UNITS/3 ML VIAL SUBQ SCH ×3 (09:00→18:03)
[2021-04-25] MEDS: Magnesium Oxide 400 MG TABLET PO SCH (11:40)
[2021-04-25] MEDS: Torsemide 20 MG TABLET PO SCH (18:04)
[2021-04-25] MEDS ORDERED: Potassium Chloride Elixir 20 MEQ/15 ML UDC PO ONE (18:51)
[2021-04-26] MEDS: *HR* OxyCODONE Immed Rel 5 MG TABLET PO PRN ×2 (00:22→20:38)
[2021-04-26 02:59] LABS: Hematocrit 23.1 % (35.3-44.9); Hemoglobin 6.7 g/dL (11.5-15.4); Mean Corpuscular Hemoglobin 26.5 pg (28.0-33.3); Mean Corpuscular Volume 91.3 fL (83.0-100.0); Mean Platelet Volume 9.8 fL (9.4-12.4); Platelet Count 255 K/mcL (140-400); Red Blood Count 2.53 M/mcL (3.82-4.97); Red Cell Distribution Width 18.6 % (11.5-14.5); White Blood Count 8.3 K/mcL (4.3-11.1)
[2021-04-26 03:17] LABS: BUN/Creatinine Ratio 17 (6-26); Blood Urea Nitrogen 12 mg/dL (8-23); Calcium 8.6 mg/dL (8.6-10.3); Carbon Dioxide 30 mEq/L (23-29); Chloride 102 mEq/L (98-107); Glucose 220 mg/dL (70-105); Magnesium 1.6 mg/dL (1.6-2.6); Osmolality,Calculated 293 (280-300); Phosphorous 2.2 mg/dL (2.7-4.5); Potassium 3.9 mEq/L (3.5-5.1); Sodium 138 mEq/L (136-145); eGFR For African Americans > 60 (> 60); eGFR For Non-African Americans > 60 (> 60)
[2021-04-26] MEDS: Ipratropium/Albuterol Neb 3 ML IH SCH ×6 (03:49→22:42)
[2021-04-26] MEDS: *HR* Heparin 5,000 UNIT/ML VIAL SQ SCH ×2 (05:03→17:53)
[2021-04-26] MEDS: Ranolazine 500 MG TAB.ER.12H PO SCH ×2 (08:13→20:38)
[2021-04-26] MEDS: Gabapentin 300 MG CAPSULE PO SCH ×2 (08:13→20:37)
[2021-04-26] MEDS: Metoprolol XL (24 HR) Succ 50 MG TAB.ER.24H PO SCH ×2 (08:14→20:38)
[2021-04-26] MEDS: Magnesium Oxide 400 MG TABLET PO SCH (08:14)
[2021-04-26] MEDS: Insulin LISPRO 300 UNITS/3 ML VIAL SUBQ SCH ×3 (08:18→17:53)
[2021-04-26] MEDS: ALPRAZolam 0.5 MG TABLET PO SCH ×2 (08:21→20:38)
[2021-04-26 16:06] LABS: Hemoglobin 7.7 g/dL (11.5-15.4)
[2021-04-26] MEDS ORDERED: 0.9 % Sodium Chloride 250 ML ONE (17:41)
[2021-04-26] MEDS: Acetaminophen 325 MG TABLET PO PRN (17:52)
[2021-04-26] MEDS: Torsemide 20 MG TABLET PO SCH (17:52)
[2021-04-27] MEDS: *HR* OxyCODONE Immed Rel 5 MG TABLET PO PRN ×3 (03:20→20:44)
[2021-04-27] MEDS: Ipratropium/Albuterol Neb 3 ML IH SCH ×6 (04:03→23:19)
[2021-04-27 05:05] LABS: Hematocrit 27.5 % (35.3-44.9); Hemoglobin 8.5 g/dL (11.5-15.4); Mean Corpuscular HGB Conc 30.9 g/dL (31.6-35.5); Mean Corpuscular Hemoglobin 28.3 pg (28.0-33.3); Mean Corpuscular Volume 91.7 fL (83.0-100.0); Mean Platelet Volume 9.7 fL (9.4-12.4); Platelet Count 235 K/mcL (140-400); Red Cell Distribution Width 17.8 % (11.5-14.5); White Blood Count 7.4 K/mcL (4.3-11.1)
[2021-04-27 05:21] LABS: BUN/Creatinine Ratio 23 (6-26); Blood Urea Nitrogen 17 mg/dL (8-23); Calcium 8.7 mg/dL (8.6-10.3); Carbon Dioxide 30 mEq/L (23-29); Chloride 104 mEq/L (98-107); Glucose 166 mg/dL (70-105); Magnesium 1.9 mg/dL (1.6-2.6); Osmolality,Calculated 291 (280-300); Phosphorous 2.5 mg/dL (2.7-4.5); Potassium 3.6 mEq/L (3.5-5.1); Sodium 138 mEq/L (136-145); eGFR For African Americans > 60 (> 60); eGFR For Non-African Americans > 60 (> 60)
[2021-04-27] MEDS: *HR* Heparin 5,000 UNIT/ML VIAL SQ SCH ×2 (05:47→17:15)
[2021-04-27] MEDS: Ranolazine 500 MG TAB.ER.12H PO SCH ×2 (08:02→20:04)
[2021-04-27] MEDS: ALPRAZolam 0.5 MG TABLET PO SCH ×2 (08:02→20:03)
[2021-04-27] MEDS: Magnesium Oxide 400 MG TABLET PO SCH (08:02)
[2021-04-27] MEDS: Gabapentin 300 MG CAPSULE PO SCH ×2 (08:02→20:03)
[2021-04-27] MEDS: Metoprolol XL (24 HR) Succ 50 MG TAB.ER.24H PO SCH (08:03)
[2021-04-27] MEDS: Insulin LISPRO 300 UNITS/3 ML VIAL SUBQ SCH ×3 (08:05→17:17)
[2021-04-27] MEDS: Metoprolol XL (24 HR) Succ 25 MG TAB.ER.24H PO SCH (10:21)
[2021-04-27] MEDS ORDERED: Magnesium Oxide 400 MG TABLET PO ONE (11:09)
[2021-04-27] MEDS: Torsemide 20 MG TABLET PO SCH (17:15)
[2021-04-27] MEDS: Nicotine 21 MG PATCH.TD24 TD SCH (17:24)
[2021-04-27] MEDS: Nicotine 2 MG GUM BC SCH ×4 (18:34→22:36)
[2021-04-28] MEDS: Ipratropium/Albuterol Neb 3 ML IH SCH ×5 (04:07→20:38)
[2021-04-28] MEDS: *HR* Heparin 5,000 UNIT/ML VIAL SQ SCH ×2 (06:53→16:56)
[2021-04-28] MEDS: Nicotine 2 MG GUM BC SCH ×7 (06:53→17:08)
[2021-04-28] MEDS: *HR* OxyCODONE Immed Rel 5 MG TABLET PO PRN ×3 (07:13→19:45)
[2021-04-28] MEDS: Gabapentin 300 MG CAPSULE PO SCH (09:01)
[2021-04-28] MEDS: Nicotine 21 MG PATCH.TD24 TD SCH (09:01)
[2021-04-28] MEDS: Magnesium Oxide 400 MG TABLET PO SCH (09:01)
[2021-04-28] MEDS: ALPRAZolam 0.5 MG TABLET PO SCH ×2 (09:01→19:45)
[2021-04-28] MEDS: Metoprolol XL (24 HR) Succ 25 MG TAB.ER.24H PO SCH (09:02)
[2021-04-28] MEDS: Ranolazine 500 MG TAB.ER.12H PO SCH (09:02)
[2021-04-28] MEDS: Insulin LISPRO 300 UNITS/3 ML VIAL SUBQ SCH ×3 (09:03→17:04)
[2021-04-28] MEDS ORDERED: hydrOXYzine pamoate 25 MG CAPSULE PO PRN (14:59)
[2021-04-28] MEDS: Torsemide 20 MG TABLET PO SCH (16:56)
[2021-04-28 20:21] LABS: Adenovirus Not Detected (Not Detect); Bordetella Pertussis Not Detected (Not Detect); Chlamydophila pneumoniae Not Detected (Not Detect); Coronavirus 229E Not Detected (Not Detect); Coronavirus HKU1 Not Detected (Not Detect); Coronavirus NL63 Not Detected (Not Detect); Coronavirus OC43 Not Detected (Not Detect); Human Metapneumovirus Not Detected (Not Detect); Human Rhinovirus/Enterovirus Not Detected (Not Detect); Influenza A Subtype 2009 H1 Not Detected (Not Detect); Influenza B Not Detected (Not Detect); Mycoplasma pneumoniae Not Detected (Not Detect); Parainfluenza Virus 1 Not Detected (Not Detect); Parainfluenza Virus 2 Not Detected (Not Detect); Parainfluenza Virus 3 Not Detected (Not Detect); Parainfluenza Virus 4 Not Detected (Not Detect); Respiratory Syncytial Virus Not Detected (Not Detect); SARS-CoV-2 Not Detected (Not Detect)
[2021-04-28 21:06] VITALS: BP 136/75
== END 2021-04-28 21:18 | DRG 239 ==
LOC: 3BNU 16:44 → EMEROOARM 16:44 → SUATTDRO 20:10 → 3BNU 21:44 → SUATTDRO 04-21 12:55 → 3NENU 04-26 13:55
PROVIDERS: ADMIT Student in an Organized Health Care Education/Training Program; ATTEND Student in an Organized Health Care Education/Training Program

== ENCOUNTER 2021-06-22 15:56 | Inpatient (IN) ==
[2021-06-22] MEDS ORDERED: methylPREDNISolone 125 MG/2 ML VIAL IVP ONE (16:04)
[2021-06-22] MEDS ORDERED: Ipratropium/Albuterol Neb 3 ML IH ONE (16:04)
[2021-06-22] MEDS ORDERED: Furosemide 40 MG/4 ML VIAL IVP ONE (16:21)
[2021-06-22 16:38] LABS: Basophils % 0.3 %; Eosinophils # 0.1 K/mcL (0.0-0.6); Eosinophils % 1.2 %; Hematocrit 47.9 % (35.3-44.9); Hemoglobin 14.2 g/dL (11.5-15.4); Immature Granulocytes % 0.3 % (0-4); Lymphocytes # 0.9 K/mcL (0.6-4.6); Lymphocytes % 10.9 %; Mean Corpuscular HGB Conc 29.6 g/dL (31.6-35.5); Mean Corpuscular Volume 94.5 fL (83.0-100.0); Mean Platelet Volume 9.5 fL (9.4-12.4); Monocytes # 0.7 K/mcL (0.0-1.3); Monocytes % 7.6 %; Neutrophils # 6.9 K/mcL (1.6-8.9); Platelet Count 211 K/mcL (140-400); Red Blood Count 5.07 M/mcL (3.82-4.97); Red Cell Distribution Width 16.1 % (11.5-14.5); Segmented Neutrophils % 79.7 %; White Blood Count 8.6 K/mcL (4.3-11.1)
[2021-06-22] MEDS ORDERED: Isovue-370 500 ML BOTTLE IVP ONE ×2 (16:57→19:22)
[2021-06-22 17:33] LABS: Bacteria,Urine Few per hpf (None-Few); Bilirubin,Urine Negative (Negative); Blood,Urine Negative (Negative); Budding Yeast,Urine Few per hpf (None Seen); Clarity,Urine Turbid (Clear); Color,Urine Light-Yellow (Yellow); Glucose,Urine (UA) Normal (Normal); Ketones,Urine Negative (Negative); Leukocyte Esterase,Urine Moderate (Negative); Mucus,Urine Few per lpf (None-Few); Nitrite,Urine Positive (Negative); Protein,Urine 70 mg/dL (Neg-Trace); Specific Gravity,Urine 1.014 (1.010-1.025); Squamous Epithelial Cell,Urine Few per hpf (None-Few); Urobilinogen,Urine Normal (Normal); WBC,Urine TNTC per hpf (0-3)
[2021-06-22 17:35] LABS: VBG HCO3 26 mEq/L (21-27); VBG PCO2 43 mmHg (41-51); VBG PH 7.39 pH Units (7.32-7.42); VBG PO2 52 mmHg (25-50)
[2021-06-22 18:01] LABS: Alanine Aminotransferase 10 Units/L (7-52); Albumin 3.8 g/dL (3.5-5.7); Albumin/Globulin Ratio 1.3 (1.1-2.2); Alkaline Phosphatase 71 Units/L (34-104); Aspartate Amino Transferase 21 Units/L (13-39); BUN/Creatinine Ratio 12 (6-26); Bilirubin,Direct 0.3 mg/dL (0.0-0.2); Bilirubin,Indirect 0.5 mg/dL (0.0-1.0); Bilirubin,Total 0.8 mg/dL (0.3-1.0); Blood Urea Nitrogen 13 mg/dL (8-23); Carbon Dioxide 24 mEq/L (23-29); Chloride 106 mEq/L (98-107); Glucose 120 mg/dL (70-105); Lipase 10 Units/L (11-82); Osmolality,Calculated 291 (280-300); Potassium 4.4 mEq/L (3.5-5.1); Sodium 140 mEq/L (136-145); Total Protein 6.8 g/dL (6.4-8.9); Troponin I 0.03 ng/mL (< 0.04); eGFR For African Americans > 60 (> 60); eGFR For Non-African Americans 51 (> 60)
[2021-06-22] MEDS ORDERED: cefTRIAXone 1,000 MG in Water for inj. (sterile) 10 ML IVP ONE (18:42)
[2021-06-22] MEDS ORDERED: Metoprolol XL (24 HR) Succ 25 MG TAB.ER.24H PO ONE (19:00)
[2021-06-22] MEDS ORDERED: Vancomycin 1,250 MG/262.5 ML IV.SOLN IVPB ONE (19:00)
[2021-06-22] MEDS ORDERED: Naloxone 0.4 MG/ML INJ IVP PRN (19:28)
[2021-06-22] MEDS ORDERED: Melatonin 3 MG TABLET PO PRN (19:28)
[2021-06-22] MEDS ORDERED: Perflutren Lipid Microsphere 1.3 ML in 0.9 % Sodium Chloride 8.7 ML IVP PRN (20:20)
[2021-06-22] MEDS ORDERED: D5% in Water 1,000 ML IVC PRN (20:51)
[2021-06-22] MEDS ORDERED: *HR* Dextrose 50 % in Water (Vial) 50 ML VIAL IVP PRN (20:51)
[2021-06-22] MEDS ORDERED: Dextrose Gel 15 GM/37.5 ML TUBE PO PRN ×2 (20:51)
[2021-06-22 21:06] LABS: INR 1.7; Prothrombin Time 19.8 Seconds (9.4-12.1)
[2021-06-22 21:09] LABS: Activated Partial Thrombo Time 32.3 Seconds (26.0-36.0)
[2021-06-22] MEDS: Ipratropium/Albuterol Neb 3 ML IH SCH (23:15)
[2021-06-22] MEDS: *HR* Metoprolol 5 MG/5 ML VIAL IVP PRN (23:15)
[2021-06-23] MEDS: *HR* Metoprolol 5 MG/5 ML VIAL IVP PRN (00:59)
[2021-06-23] MEDS: MethylPREDNISolone 40 MG/ML VIAL IVP SCH ×4 (01:00→17:44)
[2021-06-23 01:21] LABS: Adenovirus Not Detected (Not Detect); Bordetella Pertussis Not Detected (Not Detect); Chlamydophila pneumoniae Not Detected (Not Detect); Coronavirus 229E Not Detected (Not Detect); Coronavirus HKU1 Not Detected (Not Detect); Coronavirus NL63 Not Detected (Not Detect); Coronavirus OC43 Not Detected (Not Detect); Human Metapneumovirus Not Detected (Not Detect); Human Rhinovirus/Enterovirus Not Detected (Not Detect); Influenza A Subtype 2009 H1 Not Detected (Not Detect); Influenza B Not Detected (Not Detect); Mycoplasma pneumoniae Not Detected (Not Detect); Parainfluenza Virus 1 Not Detected (Not Detect); Parainfluenza Virus 2 Not Detected (Not Detect); Parainfluenza Virus 3 Not Detected (Not Detect); Parainfluenza Virus 4 Not Detected (Not Detect); Respiratory Syncytial Virus Not Detected (Not Detect); SARS-CoV-2 Not Detected (Not Detect)
[2021-06-23] MEDS: Acetaminophen 325 MG TABLET PO PRN ×2 (01:45→22:11)
[2021-06-23] MEDS: Insulin LISPRO 300 UNITS/3 ML VIAL SUBQ SCH ×4 (01:46→17:45)
[2021-06-23] MEDS ORDERED: *HR* Heparin 5,000 UNIT/ML VIAL IVP PRN ×2 (01:48)
[2021-06-23] MEDS: Metoprolol XL (24 HR) Succ 25 MG TAB.ER.24H PO SCH ×2 (02:04→08:52)
[2021-06-23] MEDS: Heparin 25,000UNIT/250ML 1/2NS 25,000 UNIT/250 ML IV.SOLN IVC SCH (02:38)
[2021-06-23] MEDS: Ipratropium/Albuterol Neb 3 ML IH SCH ×2 (03:31→07:28)
[2021-06-23] MEDS: Azithromycin 500 MG in 0.9 % Sodium Chloride 250 ML IVPB SCH (05:22)
[2021-06-23] MEDS: Ondansetron 4 MG/2 ML VIAL IVP PRN ×2 (06:40→20:02)
[2021-06-23 06:56] LABS: BUN/Creatinine Ratio 18 (6-26); Blood Urea Nitrogen 17 mg/dL (8-23); Calcium 9.4 mg/dL (8.6-10.3); Carbon Dioxide 21 mEq/L (23-29); Chloride 106 mEq/L (98-107); Glucose 174 mg/dL (70-105); Osmolality,Calculated 294 (280-300); Potassium 4.2 mEq/L (3.5-5.1); Sodium 139 mEq/L (136-145); eGFR For African Americans > 60 (> 60); eGFR For Non-African Americans 59 (> 60)
[2021-06-23] MEDS: Furosemide 40 MG/4 ML VIAL IVP SCH (08:52)
[2021-06-23] MEDS: cefTRIAXone 1,000 MG in 0.9 % Sodium Chloride Mini Bag 100 ML IVPB SCH (08:52)
[2021-06-23 09:56] LABS: Red Cell Distribution Width 15.9 % (11.5-14.5)
[2021-06-23 09:57] LABS: Hematocrit 43.5 % (35.3-44.9); Mean Corpuscular HGB Conc 29.9 g/dL (31.6-35.5); Mean Corpuscular Hemoglobin 28.3 pg (28.0-33.3); Mean Corpuscular Volume 94.6 fL (83.0-100.0); Mean Platelet Volume 9.2 fL (9.4-12.4); Platelet Count 202 K/mcL (140-400); White Blood Count 7.7 K/mcL (4.3-11.1)
[2021-06-23] MEDS: Vancomycin 1,250 MG/262.5 ML IV.SOLN IVPB SCH (10:27)
[2021-06-23] MEDS ORDERED: Ipratropium/Albuterol Neb 3 ML IH PRN (11:36)
[2021-06-23 16:44] LABS: ABG Base Excess 1 mEq/L (-2 to 3); ABG HCO3 27 mEq/L (21-27); ABG Oxygen Saturation 87 % (95-98); ABG PCO2 44 mmHg (35-45); ABG PH 7.39 pH Units (7.32-7.45); ABG PO2 54 mmHg (85-104); ABG TCO2 28 mEq/L (20-26)
[2021-06-24] MEDS: MethylPREDNISolone 40 MG/ML VIAL IVP SCH ×2 (00:08→05:11)
[2021-06-24] MEDS: Heparin 25,000UNIT/250ML 1/2NS 25,000 UNIT/250 ML IV.SOLN IVC SCH (01:55)
[2021-06-24] MEDS: Azithromycin 500 MG in 0.9 % Sodium Chloride 250 ML IVPB SCH (03:20)
[2021-06-24] MEDS: Ondansetron 4 MG/2 ML VIAL IVP PRN ×2 (05:11→22:15)
[2021-06-24 05:44] LABS: Basophils % 0.1 %; Hematocrit 44.6 % (35.3-44.9); Hemoglobin 13.4 g/dL (11.5-15.4); Immature Granulocytes % 0.3 % (0-4); Lymphocytes # 0.6 K/mcL (0.6-4.6); Lymphocytes % 3.7 %; Mean Corpuscular Hemoglobin 27.9 pg (28.0-33.3); Mean Corpuscular Volume 92.9 fL (83.0-100.0); Mean Platelet Volume 9.7 fL (9.4-12.4); Monocytes # 0.5 K/mcL (0.0-1.3); Monocytes % 2.7 %; Platelet Count 220 K/mcL (140-400); Red Cell Distribution Width 15.7 % (11.5-14.5); Segmented Neutrophils % 93.2 %
[2021-06-24 05:49] LABS: White Blood Count 17.2 K/mcL (4.3-11.1)
[2021-06-24 05:58] LABS: Potassium 4.5 mEq/L (3.5-5.1)
[2021-06-24] MEDS: cefTRIAXone 1,000 MG in 0.9 % Sodium Chloride Mini Bag 100 ML IVPB SCH (07:29)
[2021-06-24] MEDS: Furosemide 40 MG/4 ML VIAL IVP SCH ×2 (07:30→20:32)
[2021-06-24] MEDS: Vancomycin 1,250 MG/262.5 ML IV.SOLN IVPB SCH (07:30)
[2021-06-24] MEDS: Metoprolol XL (24 HR) Succ 25 MG TAB.ER.24H PO SCH (07:31)
[2021-06-24] MEDS: Insulin LISPRO 300 UNITS/3 ML VIAL SUBQ SCH ×3 (07:31→16:48)
[2021-06-24] MEDS ORDERED: Isovue-370 500 ML BOTTLE IVP ONE (10:27)
[2021-06-24] MEDS ORDERED: Isovue-370 500 ML BOTTLE PO ONE (10:29)
[2021-06-24] MEDS: Acetaminophen 325 MG TABLET PO PRN (16:45)
[2021-06-24] MEDS ORDERED: MethylPREDNISolone 40 MG/ML VIAL IVP SCH (18:00)
[2021-06-24] MEDS: ALPRAZolam 0.5 MG TABLET PO SCH (20:27)
[2021-06-24] MEDS: Ranolazine 500 MG TAB.ER.12H PO SCH (20:27)
[2021-06-25] MEDS: Azithromycin 500 MG in 0.9 % Sodium Chloride 250 ML IVPB SCH (03:04)
[2021-06-25] MEDS: Heparin 25,000UNIT/250ML 1/2NS 25,000 UNIT/250 ML IV.SOLN IVC SCH (03:05)
[2021-06-25 05:36] LABS: Basophils % 0.2 %; Hemoglobin 12.5 g/dL (11.5-15.4); Immature Granulocytes % 0.5 % (0-4); Lymphocytes # 0.9 K/mcL (0.6-4.6); Lymphocytes % 6.8 %; Mean Corpuscular HGB Conc 29.1 g/dL (31.6-35.5); Mean Corpuscular Hemoglobin 27.2 pg (28.0-33.3); Mean Corpuscular Volume 93.7 fL (83.0-100.0); Mean Platelet Volume 10.2 fL (9.4-12.4); Monocytes # 0.8 K/mcL (0.0-1.3); Monocytes % 6.3 %; Neutrophils # 11.5 K/mcL (1.6-8.9); Platelet Count 203 K/mcL (140-400); Red Blood Count 4.59 M/mcL (3.82-4.97); Red Cell Distribution Width 15.6 % (11.5-14.5); Segmented Neutrophils % 86.2 %; White Blood Count 13.3 K/mcL (4.3-11.1)
[2021-06-25 05:43] LABS: Calcium 8.7 mg/dL (8.6-10.3)
[2021-06-25] MEDS: Ondansetron 4 MG/2 ML VIAL IVP PRN ×2 (06:08→14:40)
[2021-06-25] MEDS: Insulin LISPRO 300 UNITS/3 ML VIAL SUBQ SCH ×3 (08:38→18:02)
[2021-06-25] MEDS: cefTRIAXone 1,000 MG in 0.9 % Sodium Chloride Mini Bag 100 ML IVPB SCH (09:02)
[2021-06-25] MEDS: predniSONE 20 MG TABLET PO SCH (09:03)
[2021-06-25] MEDS: ALPRAZolam 0.5 MG TABLET PO SCH ×2 (09:03→20:13)
[2021-06-25] MEDS: Furosemide 40 MG/4 ML VIAL IVP SCH ×2 (09:03→18:03)
[2021-06-25] MEDS: Ranolazine 500 MG TAB.ER.12H PO SCH ×2 (09:03→20:13)
[2021-06-25] MEDS: Vancomycin 1,250 MG/262.5 ML IV.SOLN IVPB SCH (09:03)
[2021-06-25] MEDS: Apixaban 5 MG TABLET PO SCH (20:13)
[2021-06-26 06:43] LABS: Basophils % 0.2 %; Eosinophils # 0.1 K/mcL (0.0-0.6); Eosinophils % 0.6 %; Hematocrit 44.1 % (35.3-44.9); Immature Granulocytes % 0.9 % (0-4); Lymphocytes # 1.5 K/mcL (0.6-4.6); Lymphocytes % 16.3 %; Mean Corpuscular HGB Conc 29.5 g/dL (31.6-35.5); Mean Corpuscular Hemoglobin 27.3 pg (28.0-33.3); Mean Corpuscular Volume 92.6 fL (83.0-100.0); Mean Platelet Volume 10.1 fL (9.4-12.4); Monocytes # 0.8 K/mcL (0.0-1.3); Monocytes % 8.8 %; Neutrophils # 6.9 K/mcL (1.6-8.9); Platelet Count 179 K/mcL (140-400); Red Blood Count 4.76 M/mcL (3.82-4.97); Red Cell Distribution Width 15.2 % (11.5-14.5); Segmented Neutrophils % 73.2 %; White Blood Count 9.4 K/mcL (4.3-11.1)
[2021-06-26 06:57] LABS: BUN/Creatinine Ratio 32 (6-26); Blood Urea Nitrogen 31 mg/dL (8-23); Calcium 8.7 mg/dL (8.6-10.3); Carbon Dioxide 28 mEq/L (23-29); Chloride 105 mEq/L (98-107); Glucose 132 mg/dL (70-105); Osmolality,Calculated 298 (280-300); Potassium 3.9 mEq/L (3.5-5.1); Sodium 140 mEq/L (136-145); eGFR For African Americans > 60 (> 60); eGFR For Non-African Americans 57 (> 60)
[2021-06-26 07:01] LABS: Alanine Aminotransferase 19 Units/L (7-52); Albumin 3.5 g/dL (3.5-5.7); Albumin/Globulin Ratio 1.3 (1.1-2.2); Alkaline Phosphatase 64 Units/L (34-104); Aspartate Amino Transferase 26 Units/L (13-39); BUN/Creatinine Ratio 32 (6-26); Bilirubin,Total 0.5 mg/dL (0.3-1.0); Blood Urea Nitrogen 31 mg/dL (8-23); Calcium 8.8 mg/dL (8.6-10.3); Carbon Dioxide 27 mEq/L (23-29); Chloride 105 mEq/L (98-107); Globulin 2.7 g/dL (2.4-3.5); Glucose 131 mg/dL (70-105); Osmolality,Calculated 300 (280-300); Potassium 3.9 mEq/L (3.5-5.1); Sodium 141 mEq/L (136-145); Total Protein 6.2 g/dL (6.4-8.9); eGFR For African Americans > 60 (> 60); eGFR For Non-African Americans 56 (> 60)
[2021-06-26] MEDS: Furosemide 40 MG/4 ML VIAL IVP SCH ×2 (10:00→17:54)
[2021-06-26] MEDS: ALPRAZolam 0.5 MG TABLET PO SCH ×2 (10:01→20:48)
[2021-06-26] MEDS: Insulin LISPRO 300 UNITS/3 ML VIAL SUBQ SCH ×3 (10:01→17:53)
[2021-06-26] MEDS: Azithromycin 250 MG TABLET PO SCH (10:02)
[2021-06-26] MEDS: Apixaban 5 MG TABLET PO SCH ×2 (10:02→20:49)
[2021-06-26] MEDS: predniSONE 20 MG TABLET PO SCH (10:02)
[2021-06-26] MEDS: Ranolazine 500 MG TAB.ER.12H PO SCH ×2 (10:02→20:49)
[2021-06-26] MEDS: Cefdinir 300 MG CAPSULE PO SCH ×2 (10:02→20:49)
[2021-06-27 03:40] LABS: Hematocrit 41.2 % (35.3-44.9); Hemoglobin 12.4 g/dL (11.5-15.4); Mean Corpuscular HGB Conc 30.1 g/dL (31.6-35.5); Mean Corpuscular Hemoglobin 27.6 pg (28.0-33.3); Mean Corpuscular Volume 91.6 fL (83.0-100.0); Mean Platelet Volume 9.4 fL (9.4-12.4); Platelet Count 150 K/mcL (140-400); White Blood Count 6.9 K/mcL (4.3-11.1)
[2021-06-27 03:59] LABS: BUN/Creatinine Ratio 34 (6-26); Blood Urea Nitrogen 29 mg/dL (8-23); Calcium 8.7 mg/dL (8.6-10.3); Carbon Dioxide 31 mEq/L (23-29); Chloride 105 mEq/L (98-107); Glucose 122 mg/dL (70-105); Osmolality,Calculated 303 (280-300); Potassium 3.6 mEq/L (3.5-5.1); Sodium 143 mEq/L (136-145); eGFR For African Americans > 60 (> 60); eGFR For Non-African Americans > 60 (> 60)
[2021-06-27] MEDS: Insulin LISPRO 300 UNITS/3 ML VIAL SUBQ SCH ×3 (10:34→17:31)
[2021-06-27] MEDS: Ranolazine 500 MG TAB.ER.12H PO SCH ×2 (10:38→21:21)
[2021-06-27] MEDS: Cefdinir 300 MG CAPSULE PO SCH ×2 (10:38→21:21)
[2021-06-27] MEDS: Furosemide 40 MG/4 ML VIAL IVP SCH ×2 (10:38→17:31)
[2021-06-27] MEDS: Apixaban 5 MG TABLET PO SCH ×2 (10:38→21:21)
[2021-06-27] MEDS: Azithromycin 250 MG TABLET PO SCH (10:38)
[2021-06-27] MEDS: ALPRAZolam 0.5 MG TABLET PO SCH ×2 (10:38→21:20)
[2021-06-27] MEDS: predniSONE 20 MG TABLET PO SCH (10:39)
[2021-06-27] MEDS: Spironolactone 25 MG TABLET PO SCH (13:18)
[2021-06-27] MEDS: Ondansetron 4 MG/2 ML VIAL IVP PRN (15:45)
[2021-06-28 02:21] LABS: BUN/Creatinine Ratio 36 (6-26); Blood Urea Nitrogen 32 mg/dL (8-23); Calcium 8.5 mg/dL (8.6-10.3); Carbon Dioxide 32 mEq/L (23-29); Chloride 103 mEq/L (98-107); Glucose 138 mg/dL (70-105); Osmolality,Calculated 303 (280-300); Potassium 3.6 mEq/L (3.5-5.1); Sodium 142 mEq/L (136-145); eGFR For African Americans > 60 (> 60); eGFR For Non-African Americans > 60 (> 60)
[2021-06-28] MEDS: Insulin LISPRO 300 UNITS/3 ML VIAL SUBQ SCH ×3 (07:43→17:21)
[2021-06-28] MEDS: Apixaban 5 MG TABLET PO SCH ×2 (09:34→21:28)
[2021-06-28] MEDS: Cefdinir 300 MG CAPSULE PO SCH ×2 (09:34→21:28)
[2021-06-28] MEDS: predniSONE 20 MG TABLET PO SCH (09:34)
[2021-06-28] MEDS: Ranolazine 500 MG TAB.ER.12H PO SCH ×2 (09:35→21:29)
[2021-06-28] MEDS: Furosemide 40 MG/4 ML VIAL IVP SCH ×2 (09:35→17:20)
[2021-06-28] MEDS: Spironolactone 25 MG TABLET PO SCH (09:35)
[2021-06-28] MEDS: ALPRAZolam 0.5 MG TABLET PO SCH ×2 (09:36→21:29)
[2021-06-29] MEDS: Acetaminophen 325 MG TABLET PO PRN (04:39)
[2021-06-29 06:15] LABS: Basophils % 0.2 %; Eosinophils # 0.1 K/mcL (0.0-0.6); Eosinophils % 1.1 %; Hematocrit 47.9 % (35.3-44.9); Immature Granulocytes % 0.6 % (0-4); Lymphocytes # 1.5 K/mcL (0.6-4.6); Lymphocytes % 14.6 %; Mean Corpuscular HGB Conc 29.9 g/dL (31.6-35.5); Mean Corpuscular Hemoglobin 27.2 pg (28.0-33.3); Mean Corpuscular Volume 91.1 fL (83.0-100.0); Mean Platelet Volume 9.8 fL (9.4-12.4); Monocytes # 0.9 K/mcL (0.0-1.3); Neutrophils # 7.5 K/mcL (1.6-8.9); Platelet Count 201 K/mcL (140-400); Red Blood Count 5.26 M/mcL (3.82-4.97); Segmented Neutrophils % 74.5 %; White Blood Count 10.1 K/mcL (4.3-11.1)
[2021-06-29 06:18] LABS: Hemoglobin 14.3 g/dL (11.5-15.4)
[2021-06-29 06:27] LABS: Potassium 3.5 mEq/L (3.5-5.1)
[2021-06-29] MEDS: Insulin LISPRO 300 UNITS/3 ML VIAL SUBQ SCH ×3 (07:50→17:46)
[2021-06-29] MEDS: Ranolazine 500 MG TAB.ER.12H PO SCH (08:34)
[2021-06-29] MEDS: Cefdinir 300 MG CAPSULE PO SCH (08:34)
[2021-06-29] MEDS: Spironolactone 25 MG TABLET PO SCH (08:34)
[2021-06-29] MEDS: Apixaban 5 MG TABLET PO SCH (08:34)
[2021-06-29] MEDS: ALPRAZolam 0.5 MG TABLET PO SCH (08:35)
[2021-06-29] MEDS: Furosemide 40 MG/4 ML VIAL IVP SCH ×2 (08:35→17:52)
[2021-06-29] MEDS: predniSONE 20 MG TABLET PO SCH (08:35)
[2021-06-29 10:33] VITALS: O2SAT 94
[2021-06-29 14:32] VITALS: BP 125/75; PULSE 100; TEMP 96.7
[2021-06-30] MEDS ORDERED: Spironolactone 25 MG TABLET PO SCH (09:00)
[2021-06-30] MEDS ORDERED: predniSONE 20 MG TABLET PO SCH (09:00)
== END 2021-06-29 19:28 | disposition home health service (06) | DRG 291 ==
LOC: EMEROOARM 15:56 → 2ANU 15:56 → SUATTDRO 20:29 → 3ANU 20:36
PROVIDERS: ADMIT Student in an Organized Health Care Education/Training Program; ATTEND General Practice

== ENCOUNTER 2021-11-04 18:26 | Inpatient (IN) ==
[2021-11-04 19:08] LABS: Basophils % 0.3 %; Eosinophils % 0.2 %; Hematocrit 43.1 % (35.3-44.9); Hemoglobin 13.7 g/dL (11.5-15.4); Immature Granulocytes % 0.5 % (0-4); Lymphocytes # 0.7 K/mcL (0.6-4.6); Lymphocytes % 11.3 %; Mean Corpuscular HGB Conc 31.8 g/dL (31.6-35.5); Mean Corpuscular Hemoglobin 31.1 pg (28.0-33.3); Mean Corpuscular Volume 97.7 fL (83.0-100.0); Mean Platelet Volume 9.5 fL (9.4-12.4); Monocytes # 0.9 K/mcL (0.0-1.3); Monocytes % 13.9 %; Neutrophils # 4.8 K/mcL (1.6-8.9); Platelet Count 223 K/mcL (140-400); Red Blood Count 4.41 M/mcL (3.82-4.97); Red Cell Distribution Width 16.2 % (11.5-14.5); Segmented Neutrophils % 73.8 %; White Blood Count 6.5 K/mcL (4.3-11.1)
[2021-11-04 19:16] LABS: ABG Base Excess -1 mEq/L (-2 to 3); ABG HCO3 25 mEq/L (21-27); ABG Oxygen Saturation 88 % (95-98); ABG PCO2 46 mmHg (35-45); ABG PH 7.35 pH Units (7.32-7.45); ABG PO2 58 mmHg (85-104); ABG TCO2 27 mEq/L (20-26)
[2021-11-04 19:16] LABS: INR 3.6
[2021-11-04 19:18] LABS: Activated Partial Thrombo Time 34.5 Seconds (26.0-36.0)
[2021-11-04 19:25] LABS: VBG HCO3 27 mEq/L (21-27); VBG PCO2 51 mmHg (41-51); VBG PH 7.32 pH Units (7.32-7.42); VBG PO2 56 mmHg (25-50)
[2021-11-04 19:51] LABS: Albumin 3.5 g/dL (3.5-5.7); Albumin/Globulin Ratio 1.1 (1.1-2.2); Bilirubin,Direct 0.4 mg/dL (0.0-0.2); Bilirubin,Indirect 0.4 mg/dL (0.0-1.0); Bilirubin,Total 0.8 mg/dL (0.3-1.0); Calcium 8.2 mg/dL (8.6-10.3); Globulin 3.1 g/dL (2.4-3.5); Potassium 2.9 mEq/L (3.5-5.1); Total Protein 6.6 g/dL (6.4-8.9); Troponin I 1.24 ng/mL (< 0.04)
[2021-11-04] MEDS ORDERED: Isovue-370 500 ML BOTTLE IVP ONE (20:23)
[2021-11-04] MEDS ORDERED: Furosemide 40 MG/4 ML VIAL IVP ONE (20:24)
[2021-11-04] MEDS ORDERED: Aspirin 325 MG TABLET PO ONE (20:25)
[2021-11-04 20:31] LABS: Amphetamine Screen,Urine Negative ng/mL (Cutoff=1000); Barbiturate Screen,Urine Negative ng/mL (Cutoff=200); Benzodiazepines Screen,Urine Positive ng/mL (Cutoff=200); Cannabinoid Screen,Urine Positive ng/mL (Cutoff = 50); Cocaine Screen,Urine Negative ng/mL (Cutoff= 300); Opiate Screen,Urine Negative ng/mL (Cutoff=300); Phencyclidine Screen,Urine Negative ng/mL (Cutoff=25)
[2021-11-04 20:43] LABS: Influenza A PCR Negative (Negative); Influenza B PCR Negative (Negative); Resp. Syncytial Virus PCR Negative (Negative)
[2021-11-04 20:44] LABS: SARS-CoV-2 by PCR (In House) Negative (Negative)
[2021-11-04] MEDS ORDERED: Naloxone 0.4 MG/ML INJ IVP PRN (22:44)
[2021-11-04] MEDS ORDERED: Acetaminophen 325 MG TABLET PO PRN (22:44)
[2021-11-04] MEDS ORDERED: *HR* OxyCODONE Immed Rel 5 MG TABLET PO PRN (22:44)
[2021-11-04] MEDS ORDERED: *HR* Metoprolol 5 MG/5 ML VIAL IVP ONE (23:56)
[2021-11-05] MEDS ORDERED: *HR* Heparin 5,000 UNIT/ML VIAL IVP ONE (03:21)
[2021-11-05] MEDS ORDERED: *HR* Heparin 5,000 UNIT/ML VIAL IVP PRN ×4 (03:21→06:26)
[2021-11-05] MEDS ORDERED: Heparin 25,000 UNIT/250 ML 25,000 UNIT/250 ML IV.SOLN IVC SCH ×3 (03:30→09:28)
[2021-11-05] MEDS ORDERED: Perflutren Lipid Microsphere 1.3 ML in 0.9 % Sodium Chloride 8.7 ML IVP PRN (03:41)
[2021-11-05] MEDS: Levalbuterol Neb 1.25 MG/3 ML IH SCH ×4 (04:16→19:48)
[2021-11-05 04:27] LABS: ABG Base Excess 2 mEq/L (-2 to 3); ABG HCO3 28 mEq/L (21-27); ABG Oxygen Saturation 97 % (95-98); ABG PCO2 48 mmHg (35-45); ABG PH 7.37 pH Units (7.32-7.45); ABG PO2 98 mmHg (85-104); ABG TCO2 29 mEq/L (20-26)
[2021-11-05] MEDS: Azithromycin 500 MG in 0.9 % Sodium Chloride 250 ML IVPB SCH (04:31)
[2021-11-05] MEDS ORDERED: *HR* Metoprolol 5 MG/5 ML VIAL IVP ONE (05:52)
[2021-11-05 06:49] LABS: Hematocrit 43.4 % (35.3-44.9); Hemoglobin 13.6 g/dL (11.5-15.4); Mean Corpuscular HGB Conc 31.3 g/dL (31.6-35.5); Mean Corpuscular Hemoglobin 30.7 pg (28.0-33.3); Mean Platelet Volume 9.7 fL (9.4-12.4); Platelet Count 233 K/mcL (140-400); Red Blood Count 4.43 M/mcL (3.82-4.97); Red Cell Distribution Width 16.2 % (11.5-14.5); White Blood Count 5.5 K/mcL (4.3-11.1)
[2021-11-05 06:58] LABS: INR 2.7; Prothrombin Time 29.8 Seconds (9.4-12.1)
[2021-11-05 07:00] LABS: Heparin anti-factor XA UFH 1.54 IU/mL (0.30-0.70)
[2021-11-05 07:26] LABS: Activated Partial Thrombo Time 34.1 Seconds (26.0-36.0)
[2021-11-05] MEDS: Furosemide 40 MG/4 ML VIAL IVP SCH ×2 (07:36→17:06)
[2021-11-05] MEDS: MethylPREDNISolone 40 MG/ML VIAL IVP SCH ×3 (07:36→23:39)
[2021-11-05 08:32] LABS: Acetaminophen < 10 mcg/mL (10-20); Alanine Aminotransferase 25 Units/L (7-52); Albumin 3.5 g/dL (3.5-5.7); Albumin/Globulin Ratio 1.1 (1.1-2.2); Alkaline Phosphatase 64 Units/L (34-104); Aspartate Amino Transferase 51 Units/L (13-39); BUN/Creatinine Ratio 21 (6-26); Bilirubin,Total 0.8 mg/dL (0.3-1.0); Blood Urea Nitrogen 43 mg/dL (8-23); Calcium 8.4 mg/dL (8.6-10.3); Carbon Dioxide 26 mEq/L (23-29); Chloride 98 mEq/L (98-107); Chol/HDL Ratio 4.1 (0-4.9); Cholesterol 70 mg/dL (< 200); Globulin 3.3 g/dL (2.4-3.5); Glucose 94 mg/dL (70-105); HDL Cholesterol 17 mg/dL (40-59); LDL Cholesterol,Calculated 35 mg/dL (< 100); Osmolality,Calculated 299 (280-300); Potassium 3.1 mEq/L (3.5-5.1); Salicylate < 2.5 mg/dL (15.0-30.0); Sodium 139 mEq/L (136-145); Thyroid Stimulating Hormone 0.464 mcIU/mL (0.340-5.600); Total Protein 6.8 g/dL (6.4-8.9); Triglycerides 92 mg/dL (< 150); Troponin I 1.07 ng/mL (< 0.04); eGFR For African Americans 28 (> 60); eGFR For Non-African Americans 23 (> 60)
[2021-11-05 08:51] LABS: Estimated Average Glucose 126 mg/dl
[2021-11-05] MEDS: cefTRIAXone 1,000 MG in Water for inj. (sterile) 10 ML IVP SCH (10:23)
[2021-11-05 10:36] LABS: Creatinine,Urine 57 mg/dL
[2021-11-05 15:13] LABS: Folate 13.8 ng/mL (3.0-16.0)
[2021-11-05 15:21] LABS: ABG Base Excess -1 mEq/L (-2 to 3); ABG HCO3 23 mEq/L (21-27); ABG Oxygen Saturation 97 % (95-98); ABG PCO2 35 mmHg (35-45); ABG PH 7.42 pH Units (7.32-7.45); ABG PO2 91 mmHg (85-104); ABG TCO2 24 mEq/L (20-26); Blood Gas Modality BiLevel
[2021-11-05 17:06] LABS: Calcium 8.8 mg/dL (8.6-10.3); Magnesium 1.5 mg/dL (1.6-2.6); Potassium 3.3 mEq/L (3.5-5.1)
[2021-11-05] MEDS ORDERED: Potassium Chloride Elixir 20 MEQ/15 ML UDC PO ONE (17:23)
[2021-11-05] MEDS: Metoprolol XL (24 HR) Succ 25 MG TAB.ER.24H PO SCH (20:01)
[2021-11-05] MEDS: Apixaban 5 MG TABLET PO SCH (20:01)
[2021-11-06] MEDS: Levalbuterol Neb 1.25 MG/3 ML IH SCH ×4 (03:47→21:21)
[2021-11-06] MEDS: Azithromycin 500 MG in 0.9 % Sodium Chloride 250 ML IVPB SCH (04:34)
[2021-11-06 04:55] LABS: Basophils % 0.6 %; Hematocrit 44.2 % (35.3-44.9); Immature Granulocytes % 1.4 % (0-4); Lymphocytes # 0.3 K/mcL (0.6-4.6); Lymphocytes % 6.6 %; Mean Corpuscular HGB Conc 31.7 g/dL (31.6-35.5); Mean Corpuscular Hemoglobin 30.6 pg (28.0-33.3); Mean Corpuscular Volume 96.7 fL (83.0-100.0); Mean Platelet Volume 9.4 fL (9.4-12.4); Monocytes # 0.4 K/mcL (0.0-1.3); Monocytes % 7.2 %; Neutrophils # 4.3 K/mcL (1.6-8.9); Platelet Count 239 K/mcL (140-400); Red Blood Count 4.57 M/mcL (3.82-4.97); Red Cell Distribution Width 16.1 % (11.5-14.5); Segmented Neutrophils % 84.2 %; White Blood Count 5.1 K/mcL (4.3-11.1)
[2021-11-06 05:10] LABS: INR 2.5; Prothrombin Time 27.8 Seconds (9.4-12.1)
[2021-11-06 05:11] LABS: Platelet Estimate Normal (Normal)
[2021-11-06 05:17] LABS: Albumin 3.5 g/dL (3.5-5.7); Bilirubin,Total 0.6 mg/dL (0.3-1.0); Calcium 9.4 mg/dL (8.6-10.3); Globulin 3.5 g/dL (2.4-3.5); Magnesium 2.1 mg/dL (1.6-2.6); Potassium 3.6 mEq/L (3.5-5.1)
[2021-11-06] MEDS: ALPRAZolam 0.5 MG TABLET PO PRN ×2 (10:49→21:11)
[2021-11-06] MEDS: Venlafaxine XR (24 HR) 75 MG CAP.ER.24H PO SCH (10:49)
[2021-11-06] MEDS: Metoprolol XL (24 HR) Succ 25 MG TAB.ER.24H PO SCH ×2 (10:49→21:11)
[2021-11-06] MEDS: cefTRIAXone 1,000 MG in Water for inj. (sterile) 10 ML IVP SCH (10:50)
[2021-11-06] MEDS: MethylPREDNISolone 40 MG/ML VIAL IVP SCH ×2 (10:50→18:11)
[2021-11-06] MEDS: Ranolazine 500 MG TAB.ER.12H PO SCH ×2 (10:50→21:11)
[2021-11-06] MEDS: Furosemide 40 MG/4 ML VIAL IVP SCH ×2 (10:51→18:10)
[2021-11-06] MEDS: Apixaban 5 MG TABLET PO SCH ×2 (10:53→21:11)
[2021-11-06 13:43] LABS: VBG HCO3 29 mEq/L (21-27); VBG PCO2 49 mmHg (41-51); VBG PH 7.39 pH Units (7.32-7.42); VBG PO2 91 mmHg (25-50)
[2021-11-06] MEDS: Melatonin 3 MG TABLET PO PRN (21:11)
[2021-11-07] MEDS: MethylPREDNISolone 40 MG/ML VIAL IVP SCH ×3 (03:10→20:59)
[2021-11-07] MEDS: Azithromycin 500 MG in 0.9 % Sodium Chloride 250 ML IVPB SCH (03:11)
[2021-11-07] MEDS: Levalbuterol Neb 1.25 MG/3 ML IH SCH ×4 (04:01→19:45)
[2021-11-07] MEDS: Ondansetron 4 MG/2 ML VIAL IVP PRN (05:59)
[2021-11-07 06:28] LABS: Basophils % 0.3 %; Eosinophils % 0.1 %; Hematocrit 42.5 % (35.3-44.9); Immature Granulocytes % 1.6 % (0-4); Lymphocytes # 0.6 K/mcL (0.6-4.6); Lymphocytes % 5.8 %; Mean Corpuscular HGB Conc 32.9 g/dL (31.6-35.5); Mean Corpuscular Hemoglobin 31.9 pg (28.0-33.3); Mean Corpuscular Volume 96.8 fL (83.0-100.0); Mean Platelet Volume 9.5 fL (9.4-12.4); Monocytes # 0.7 K/mcL (0.0-1.3); Monocytes % 7.1 %; Platelet Count 278 K/mcL (140-400); Red Blood Count 4.39 M/mcL (3.82-4.97); Red Cell Distribution Width 15.9 % (11.5-14.5); Segmented Neutrophils % 85.1 %
[2021-11-07 06:32] LABS: Neutrophils # 8.8 K/mcL (1.6-8.9); White Blood Count 10.3 K/mcL (4.3-11.1)
[2021-11-07 06:40] LABS: INR 2.4; Prothrombin Time 26.4 Seconds (9.4-12.1)
[2021-11-07 06:51] LABS: Albumin 3.7 g/dL (3.5-5.7); Albumin/Globulin Ratio 1.1 (1.1-2.2); Bilirubin,Total 0.6 mg/dL (0.3-1.0); Calcium 9.7 mg/dL (8.6-10.3); Globulin 3.3 g/dL (2.4-3.5); Magnesium 1.8 mg/dL (1.6-2.6); Potassium 3.9 mEq/L (3.5-5.1)
[2021-11-07 07:03] LABS: VBG HCO3 30 mEq/L (21-27); VBG PCO2 48 mmHg (41-51); VBG PH 7.41 pH Units (7.32-7.42); VBG PO2 136 mmHg (25-50)
[2021-11-07 08:38] LABS: Platelet Estimate Normal (Normal); Reactive Lymphocytes Present (Not Present)
[2021-11-07] MEDS: Venlafaxine XR (24 HR) 75 MG CAP.ER.24H PO SCH (09:01)
[2021-11-07] MEDS: Ranolazine 500 MG TAB.ER.12H PO SCH ×2 (09:01→20:59)
[2021-11-07] MEDS: ALPRAZolam 0.5 MG TABLET PO PRN ×2 (09:01→20:59)
[2021-11-07] MEDS: Furosemide 40 MG/4 ML VIAL IVP SCH ×2 (09:02→17:25)
[2021-11-07] MEDS: Apixaban 5 MG TABLET PO SCH ×2 (09:02→20:59)
[2021-11-07] MEDS: Metoprolol XL (24 HR) Succ 25 MG TAB.ER.24H PO SCH ×2 (09:02→20:58)
[2021-11-07] MEDS: cefTRIAXone 1,000 MG in Water for inj. (sterile) 10 ML IVP SCH (09:02)
[2021-11-07] MEDS ORDERED: Acetaminophen 325 MG TABLET PO PRN (11:58)
[2021-11-07] MEDS: *HR* OxyCODONE Immed Rel 5 MG TABLET PO PRN (15:15)
[2021-11-07] MEDS: Melatonin 3 MG TABLET PO PRN (20:59)
[2021-11-08] MEDS: Azithromycin 500 MG in 0.9 % Sodium Chloride 250 ML IVPB SCH (03:39)
[2021-11-08] MEDS: *HR* OxyCODONE Immed Rel 5 MG TABLET PO PRN ×2 (03:41→17:09)
[2021-11-08] MEDS: Levalbuterol Neb 1.25 MG/3 ML IH SCH ×4 (03:41→20:04)
[2021-11-08 06:05] LABS: Basophils # 0.1 K/mcL (0.0-0.2); Basophils % 0.4 %; Eosinophils % 0.1 %; Hematocrit 43.9 % (35.3-44.9); Hemoglobin 13.9 g/dL (11.5-15.4); Immature Granulocytes % 1.3 % (0-4); Lymphocytes % 7.1 %; Mean Corpuscular HGB Conc 31.7 g/dL (31.6-35.5); Mean Corpuscular Hemoglobin 31.3 pg (28.0-33.3); Mean Corpuscular Volume 98.9 fL (83.0-100.0); Mean Platelet Volume 9.7 fL (9.4-12.4); Monocytes # 1.3 K/mcL (0.0-1.3); Monocytes % 9.7 %; Neutrophils # 11.1 K/mcL (1.6-8.9); Nucleated Red Blood Cells 0.1 /100 WBC (0); Platelet Count 303 K/mcL (140-400); Red Blood Count 4.44 M/mcL (3.82-4.97); Red Cell Distribution Width 15.9 % (11.5-14.5); Segmented Neutrophils % 81.4 %; White Blood Count 13.7 K/mcL (4.3-11.1)
[2021-11-08 06:14] LABS: Albumin 3.7 g/dL (3.5-5.7); Albumin/Globulin Ratio 1.2 (1.1-2.2); Bilirubin,Total 0.5 mg/dL (0.3-1.0); Calcium 9.8 mg/dL (8.6-10.3); Globulin 3.2 g/dL (2.4-3.5); Magnesium 1.9 mg/dL (1.6-2.6); Potassium 4.8 mEq/L (3.5-5.1); Total Protein 6.9 g/dL (6.4-8.9)
[2021-11-08 06:20] LABS: INR 2.4; Prothrombin Time 26.8 Seconds (9.4-12.1)
[2021-11-08] MEDS: Furosemide 40 MG/4 ML VIAL IVP SCH (09:07)
[2021-11-08] MEDS: cefTRIAXone 1,000 MG in Water for inj. (sterile) 10 ML IVP SCH (09:07)
[2021-11-08] MEDS: MethylPREDNISolone 40 MG/ML VIAL IVP SCH ×2 (09:08→20:54)
[2021-11-08] MEDS: Apixaban 5 MG TABLET PO SCH ×2 (09:08→20:54)
[2021-11-08] MEDS: Ranolazine 500 MG TAB.ER.12H PO SCH ×2 (09:08→20:54)
[2021-11-08] MEDS: Venlafaxine XR (24 HR) 75 MG CAP.ER.24H PO SCH (09:08)
[2021-11-08] MEDS: Metoprolol XL (24 HR) Succ 25 MG TAB.ER.24H PO SCH ×2 (09:09→20:54)
[2021-11-08 14:50] LABS: VBG HCO3 33 mEq/L (21-27); VBG PCO2 57 mmHg (41-51); VBG PH 7.37 pH Units (7.32-7.42); VBG PO2 73 mmHg (25-50)
[2021-11-08] MEDS: ALPRAZolam 0.5 MG TABLET PO PRN (20:54)
[2021-11-09] MEDS: *HR* OxyCODONE Immed Rel 5 MG TABLET PO PRN ×2 (01:51→13:45)
[2021-11-09] MEDS: Levalbuterol Neb 1.25 MG/3 ML IH SCH ×4 (03:54→20:23)
[2021-11-09] MEDS: Azithromycin 500 MG in 0.9 % Sodium Chloride 250 ML IVPB SCH (04:35)
[2021-11-09 05:02] LABS: VBG HCO3 34 mEq/L (21-27); VBG PCO2 56 mmHg (41-51); VBG PH 7.39 pH Units (7.32-7.42); VBG PO2 75 mmHg (25-50)
[2021-11-09 05:09] LABS: Basophils # 0.1 K/mcL (0.0-0.2); Basophils % 0.7 %; Hemoglobin 12.8 g/dL (11.5-15.4); Immature Granulocytes % 3.5 % (0-4); Lymphocytes # 0.6 K/mcL (0.6-4.6); Lymphocytes % 6.3 %; Mean Corpuscular Hemoglobin 31.2 pg (28.0-33.3); Mean Corpuscular Volume 97.6 fL (83.0-100.0); Mean Platelet Volume 9.5 fL (9.4-12.4); Monocytes # 0.7 K/mcL (0.0-1.3); Monocytes % 6.6 %; Neutrophils # 8.3 K/mcL (1.6-8.9); Nucleated Red Blood Cells 0.2 /100 WBC (0); Platelet Count 219 K/mcL (140-400); Red Cell Distribution Width 15.9 % (11.5-14.5); Segmented Neutrophils % 82.9 %
[2021-11-09 05:16] LABS: Albumin 3.6 g/dL (3.5-5.7); Albumin/Globulin Ratio 1.1 (1.1-2.2); Bilirubin,Total 0.7 mg/dL (0.3-1.0); Calcium 10.1 mg/dL (8.6-10.3); Globulin 3.3 g/dL (2.4-3.5); Magnesium 1.8 mg/dL (1.6-2.6); Potassium 4.9 mEq/L (3.5-5.1); Total Protein 6.9 g/dL (6.4-8.9)
[2021-11-09 05:19] LABS: INR 2.6; Prothrombin Time 28.8 Seconds (9.4-12.1)
[2021-11-09] MEDS ORDERED: Furosemide 40 MG/4 ML VIAL IVP SCH (09:00)
[2021-11-09] MEDS: Ranolazine 500 MG TAB.ER.12H PO SCH ×2 (09:26→19:58)
[2021-11-09] MEDS: Metoprolol XL (24 HR) Succ 25 MG TAB.ER.24H PO SCH ×2 (09:26→19:58)
[2021-11-09] MEDS: ALPRAZolam 0.5 MG TABLET PO PRN (09:26)
[2021-11-09] MEDS: Apixaban 5 MG TABLET PO SCH ×2 (09:26→19:58)
[2021-11-09] MEDS: Venlafaxine XR (24 HR) 75 MG CAP.ER.24H PO SCH (09:27)
[2021-11-09] MEDS: MethylPREDNISolone 40 MG/ML VIAL IVP SCH (09:27)
[2021-11-09] MEDS: cefTRIAXone 1,000 MG in Water for inj. (sterile) 10 ML IVP SCH (09:27)
[2021-11-09] MEDS: Furosemide 20 MG TABLET PO SCH (17:15)
[2021-11-10] MEDS: Ondansetron 4 MG/2 ML VIAL IVP PRN (02:08)
[2021-11-10] MEDS: Levalbuterol Neb 1.25 MG/3 ML IH SCH ×2 (03:31→10:21)
[2021-11-10 07:30] VITALS: TEMP 97.4
[2021-11-10 07:38] LABS: VBG HCO3 31 mEq/L (21-27); VBG PCO2 48 mmHg (41-51); VBG PH 7.42 pH Units (7.32-7.42); VBG PO2 152 mmHg (25-50)
[2021-11-10 08:07] LABS: Hematocrit 42.5 % (35.3-44.9); Hemoglobin 13.4 g/dL (11.5-15.4); Mean Corpuscular HGB Conc 31.5 g/dL (31.6-35.5); Mean Corpuscular Hemoglobin 30.7 pg (28.0-33.3); Mean Corpuscular Volume 97.5 fL (83.0-100.0); Mean Platelet Volume 10.1 fL (9.4-12.4); Monocytes # 1.1 K/mcL (0.0-1.3); Nucleated Red Blood Cells 0.3 /100 WBC (0); Platelet Count 239 K/mcL (140-400); Red Blood Count 4.36 M/mcL (3.82-4.97); Red Cell Distribution Width 15.9 % (11.5-14.5)
[2021-11-10 08:11] LABS: White Blood Count 16.3 K/mcL (4.3-11.1)
[2021-11-10 08:15] LABS: INR 3.1; Prothrombin Time 34.7 Seconds (9.4-12.1)
[2021-11-10 08:32] LABS: Albumin 3.7 g/dL (3.5-5.7); Albumin/Globulin Ratio 1.2 (1.1-2.2); Bilirubin,Total 0.7 mg/dL (0.3-1.0); Calcium 10.2 mg/dL (8.6-10.3); Globulin 3.2 g/dL (2.4-3.5); Magnesium 1.8 mg/dL (1.6-2.6); Potassium 4.3 mEq/L (3.5-5.1); Total Protein 6.9 g/dL (6.4-8.9)
[2021-11-10 08:48] LABS: Neutrophils # 13.7 K/mcL (1.6-8.9); Platelet Estimate Normal (Normal)
[2021-11-10] MEDS ORDERED: MethylPREDNISolone 40 MG/ML VIAL IVP SCH (09:00)
[2021-11-10] MEDS: Ranolazine 500 MG TAB.ER.12H PO SCH (09:26)
[2021-11-10] MEDS: Venlafaxine XR (24 HR) 75 MG CAP.ER.24H PO SCH (09:26)
[2021-11-10] MEDS: Metoprolol XL (24 HR) Succ 25 MG TAB.ER.24H PO SCH (09:26)
[2021-11-10] MEDS: Apixaban 5 MG TABLET PO SCH (09:26)
[2021-11-10] MEDS: Furosemide 20 MG TABLET PO SCH (09:27)
[2021-11-10] MEDS: cefTRIAXone 1,000 MG in Water for inj. (sterile) 10 ML IVP SCH (09:28)
[2021-11-10 10:56] VITALS: BP 129/93; PULSE 108; O2SAT 94
== END 2021-11-10 13:32 | disposition home health service (06) | DRG 871 ==
LOC: EMEROOARM 18:26 → 2ANU 18:26 → OBSVTOIN 22:04 → SUATTDRO 22:04 → 2ANU 22:34
PROVIDERS: ADMIT Internal Medicine; ATTEND Student in an Organized Health Care Education/Training Program

== ENCOUNTER 2022-03-27 22:14 | Inpatient (IN) ==
[2022-03-27] MEDS ORDERED: Ipratropium/Albuterol Neb 3 ML IH ONE (22:18)
[2022-03-27 22:41] LABS: Basophils % 0.3 %; Eosinophils % 0.5 %; Hematocrit 39.6 % (35.3-44.9); Hemoglobin 12.3 g/dL (11.5-15.4); Immature Granulocytes % 1.3 % (0-4); Lymphocytes # 0.8 K/mcL (0.6-4.6); Lymphocytes % 9.2 %; Mean Corpuscular HGB Conc 31.1 g/dL (31.6-35.5); Mean Corpuscular Hemoglobin 28.8 pg (28.0-33.3); Mean Corpuscular Volume 92.7 fL (83.0-100.0); Mean Platelet Volume 9.7 fL (9.4-12.4); Monocytes # 0.7 K/mcL (0.0-1.3); Monocytes % 8.3 %; Neutrophils # 7.1 K/mcL (1.6-8.9); Nucleated Red Blood Cells 0.2 /100 WBC (0); Platelet Count 223 K/mcL (140-400); Red Blood Count 4.27 M/mcL (3.82-4.97); Red Cell Distribution Width 16.5 % (11.5-14.5); Segmented Neutrophils % 80.4 %; White Blood Count 8.8 K/mcL (4.3-11.1)
[2022-03-27 22:42] LABS: VBG HCO3 26 mEq/L (21-27); VBG PCO2 55 mmHg (41-51); VBG PH 7.27 pH Units (7.32-7.42); VBG PO2 64 mmHg (25-50)
[2022-03-27 22:52] LABS: INR 2.8; Prothrombin Time 30.5 Seconds (9.4-12.1)
[2022-03-27 22:55] LABS: Activated Partial Thrombo Time 35.3 Seconds (26.0-36.0)
[2022-03-27 23:04] LABS: Alanine Aminotransferase 18 Units/L (7-52); Albumin 3.7 g/dL (3.5-5.7); Albumin/Globulin Ratio 1.2 (1.1-2.2); Alkaline Phosphatase 85 Units/L (34-104); Aspartate Amino Transferase 57 Units/L (13-39); BUN/Creatinine Ratio 16 (6-26); Bilirubin,Direct 0.2 mg/dL (0.0-0.2); Bilirubin,Indirect 0.4 mg/dL (0.0-1.0); Bilirubin,Total 0.6 mg/dL (0.3-1.0); Blood Urea Nitrogen 60 mg/dL (8-23); Calcium 8.6 mg/dL (8.6-10.3); Carbon Dioxide 22 mEq/L (23-29); Chloride 95 mEq/L (98-107); Ethanol < 10 mg/dL (Less than 10); Glucose 96 mg/dL (70-105); Osmolality,Calculated 293 (280-300); Potassium 5.1 mEq/L (3.5-5.1); Sodium 133 mEq/L (136-145); Total Protein 6.7 g/dL (6.4-8.9); Troponin I 3.23 ng/mL (< 0.04); eGFR For African Americans 15 (> 60); eGFR For Non-African Americans 12 (> 60)
[2022-03-27] MEDS ORDERED: Pantoprazole 40 MG VIAL IVP ONE (23:19)
[2022-03-27 23:32] LABS: Magnesium 2.8 mg/dL (1.6-2.6); Phosphorous 8.2 mg/dL (2.7-4.5)
[2022-03-28 00:41] LABS: Influenza A PCR Negative (Negative); Influenza B PCR Negative (Negative); Resp. Syncytial Virus PCR Negative (Negative)
[2022-03-28 00:43] LABS: SARS-CoV-2 by PCR (In House) Negative (Negative)
[2022-03-28 01:11] LABS: Bilirubin,Urine Negative (Negative); Blood,Urine Negative (Negative); Clarity,Urine Clear (Clear); Color,Urine Yellow (Yellow); Glucose,Urine (UA) Normal (Normal); Hyaline Casts,Urine Few per lpf (None Seen); Ketones,Urine Negative (Negative); Leukocyte Esterase,Urine Negative (Negative); Mucus,Urine Few per lpf (None-Few); Nitrite,Urine Negative (Negative); PH,Urine 5.5 pH Units (5.0-8.0); Protein,Urine 70 mg/dL (Neg-Trace); RBC,Urine 0-3 per hpf (0-3); Specific Gravity,Urine 1.017 (1.010-1.025); Squamous Epithelial Cell,Urine Few per hpf (None-Few); Urobilinogen,Urine Normal (Normal)
[2022-03-28] MEDS ORDERED: Cefepime HCl 1,000 MG in 0.9 % Sodium Chloride Mini Bag 100 ML IVPB STA (01:20)
[2022-03-28 01:21] LABS: Amphetamine Screen,Urine Negative ng/mL (Cutoff=1000); Barbiturate Screen,Urine Negative ng/mL (Cutoff=200); Benzodiazepines Screen,Urine Positive ng/mL (Cutoff=200); Cannabinoid Screen,Urine Positive ng/mL (Cutoff = 50); Cocaine Screen,Urine Negative ng/mL (Cutoff= 300); Opiate Screen,Urine Positive ng/mL (Cutoff=300); Phencyclidine Screen,Urine Negative ng/mL (Cutoff=25)
[2022-03-28] MEDS ORDERED: Furosemide 40 MG/4 ML VIAL IVP ONE (02:52)
[2022-03-28] MEDS ORDERED: *HR* Heparin 5,000 UNIT/ML VIAL IVP PRN ×2 (02:59)
[2022-03-28] MEDS ORDERED: Naloxone 0.4 MG/ML INJ IVP PRN (03:27)
[2022-03-28] MEDS ORDERED: Vancomycin 1 EACH in 0.9 % Sodium Chloride 250 ML IVPB PRN (04:00)
[2022-03-28] MEDS: Heparin 25,000UNIT/250ML 1/2NS 25,000 UNIT/250 ML IV.SOLN IVC SCH (04:37)
[2022-03-28] MEDS ORDERED: Dextrose 4 GM Chewable Tablets PO PRN ×2 (05:00)
[2022-03-28] MEDS ORDERED: D5% in Water 1,000 ML IVC PRN (05:00)
[2022-03-28] MEDS ORDERED: *HR* Dextrose 50 % in Water (Syg) 50 ML SYRINGE IVP PRN (05:00)
[2022-03-28 05:13] LABS: Basophils % 0.3 %; Hemoglobin 11.5 g/dL (11.5-15.4); Mean Corpuscular HGB Conc 30.7 g/dL (31.6-35.5); Segmented Neutrophils % 85.2 %
[2022-03-28 05:15] LABS: Eosinophils # 0.1 K/mcL (0.0-0.6); Hematocrit 37.5 % (35.3-44.9); Immature Platelets 2.6 % (1.1-6.1); Lymphocytes # 0.5 K/mcL (0.6-4.6); Lymphocytes % 4.8 %; Mean Corpuscular Hemoglobin 29.1 pg (28.0-33.3); Mean Corpuscular Volume 94.9 fL (83.0-100.0); Mean Platelet Volume 9.8 fL (9.4-12.4); Monocytes # 0.9 K/mcL (0.0-1.3); Monocytes % 7.7 %; Platelet Count 192 K/mcL (140-400); Red Blood Count 3.95 M/mcL (3.82-4.97); Red Cell Distribution Width 16.6 % (11.5-14.5); White Blood Count 11.3 K/mcL (4.3-11.1)
[2022-03-28 05:18] LABS: Neutrophils # 9.6 K/mcL (1.6-8.9)
[2022-03-28 05:28] LABS: Activated Partial Thrombo Time 32.1 Seconds (26.0-36.0)
[2022-03-28] MEDS: Ipratropium/Albuterol Neb 3 ML IH SCH ×5 (05:29→20:13)
[2022-03-28 05:32] LABS: Alanine Aminotransferase 18 Units/L (7-52); Albumin 3.5 g/dL (3.5-5.7); Albumin/Globulin Ratio 1.3 (1.1-2.2); Alkaline Phosphatase 82 Units/L (34-104); Aspartate Amino Transferase 58 Units/L (13-39); BUN/Creatinine Ratio 18 (6-26); Bilirubin,Total 0.6 mg/dL (0.3-1.0); Blood Urea Nitrogen 66 mg/dL (8-23); Calcium 8.5 mg/dL (8.6-10.3); Carbon Dioxide 23 mEq/L (23-29); Chloride 98 mEq/L (98-107); Globulin 2.7 g/dL (2.4-3.5); Glucose 77 mg/dL (70-105); Magnesium 2.8 mg/dL (1.6-2.6); Osmolality,Calculated 294 (280-300); Phosphorous 7.3 mg/dL (2.7-4.5); Potassium 4.9 mEq/L (3.5-5.1); Sodium 133 mEq/L (136-145); Total Protein 6.2 g/dL (6.4-8.9); eGFR For African Americans 15 (> 60); eGFR For Non-African Americans 12 (> 60)
[2022-03-28 06:05] LABS: Heparin anti-factor XA UFH 0.33 IU/mL (0.30-0.70)
[2022-03-28 06:17] LABS: VBG HCO3 26 mEq/L (21-27); VBG PCO2 62 mmHg (41-51); VBG PH 7.23 pH Units (7.32-7.42); VBG PO2 136 mmHg (25-50)
[2022-03-28 06:29] LABS: Acetaminophen < 10 mcg/mL (10-20); Salicylate < 2.5 mg/dL (15.0-30.0)
[2022-03-28 09:27] LABS: Creatine Kinase 38 Units/L (30-223)
[2022-03-28] MEDS: Furosemide 40 MG/4 ML VIAL IVP SCH ×2 (09:42→20:33)
[2022-03-28 12:11] LABS: Protein/Creatinine Ratio,Urine 1.5 mg/mg (0.00-0.20); Sodium, Urine 50.1 mEq/L
[2022-03-28] MEDS ORDERED: Cefepime HCl 2,000 MG in 0.9 % Sodium Chloride 10 ML IVP SCH (14:00)
[2022-03-28 15:19] LABS: Complement C3 63 mg/dL (87-200)
[2022-03-28] MEDS: Albumin 25% 25gram/100mL 25 GM/100 ML IV.SOLN IVPB SCH ×2 (16:03→23:54)
[2022-03-28 16:21] LABS: Creatinine,Urine 19 mg/dL; Microalbum/Creatinine Ratio,Ur 1179 mcg/mg (Less than 30); Microalbumin,Urine 224 mg/L
[2022-03-28] MEDS ORDERED: *HR* OxyCODONE Immed Rel 5 MG TABLET PO PRN (17:17)
[2022-03-28] MEDS ORDERED: Loratadine 10 MG TABLET PO PRN (17:17)
[2022-03-28] MEDS: hydrALAZINE 25 MG TABLET PO SCH ×2 (18:26→23:09)
[2022-03-28] MEDS: Sacubitril/Valsartan 24/26 MG 1 TABLET PO SCH (18:26)
[2022-03-28] MEDS: Lactulose Oral Soln 20 GM/30 ML UDC PO SCH (20:22)
[2022-03-28] MEDS: Ranolazine 500 MG TAB.ER.12H PO SCH (20:22)
[2022-03-28] MEDS: ALPRAZolam 0.5 MG TABLET PO SCH (20:22)
[2022-03-29] MEDS: Ipratropium/Albuterol Neb 3 ML IH SCH ×7 (00:09→23:18)
[2022-03-29] MEDS ORDERED: methylPREDNISolone 125 MG/2 ML VIAL IVP ONE (02:52)
[2022-03-29] MEDS: Cefepime HCl 2,000 MG in 0.9 % Sodium Chloride 10 ML IVP SCH (02:56)
[2022-03-29] MEDS: Sacubitril/Valsartan 24/26 MG 1 TABLET PO SCH ×2 (04:58→15:50)
[2022-03-29 05:10] LABS: ABG Base Excess 1 mEq/L (-2 to 3); ABG HCO3 27 mEq/L (21-27); ABG Oxygen Saturation 97 % (95-98); ABG PCO2 52 mmHg (35-45); ABG PH 7.33 pH Units (7.32-7.45); ABG PO2 94 mmHg (85-104); ABG TCO2 29 mEq/L (20-26); Blood Gas Modality AVAPS; Blood Gas VT 400 cc
[2022-03-29 05:10] LABS: Hematocrit 38.7 % (35.3-44.9); Hemoglobin 12.1 g/dL (11.5-15.4); Mean Corpuscular HGB Conc 31.3 g/dL (31.6-35.5); Mean Corpuscular Hemoglobin 29.1 pg (28.0-33.3); Mean Platelet Volume 9.6 fL (9.4-12.4); Platelet Count 211 K/mcL (140-400); Red Blood Count 4.16 M/mcL (3.82-4.97); Red Cell Distribution Width 16.4 % (11.5-14.5); White Blood Count 7.8 K/mcL (4.3-11.1)
[2022-03-29 05:43] LABS: Calcium 9.7 mg/dL (8.6-10.3); Potassium 3.9 mEq/L (3.5-5.1)
[2022-03-29] MEDS: Heparin 25,000UNIT/250ML 1/2NS 25,000 UNIT/250 ML IV.SOLN IVC SCH (06:43)
[2022-03-29] MEDS: Budesonide/Formoterol 160/4.5 1 PUFF INH IH SCH ×2 (07:38→20:21)
[2022-03-29] MEDS ORDERED: *HR* Digoxin 0.125 MG TABLET PO SCH (09:00)
[2022-03-29] MEDS: Lactulose Oral Soln 20 GM/30 ML UDC PO SCH ×2 (09:02→21:01)
[2022-03-29] MEDS: Furosemide 40 MG/4 ML VIAL IVP SCH ×3 (09:02→21:02)
[2022-03-29] MEDS: Albumin 25% 25gram/100mL 25 GM/100 ML IV.SOLN IVPB SCH ×2 (09:02→15:50)
[2022-03-29] MEDS: ALPRAZolam 0.5 MG TABLET PO SCH ×3 (09:03→21:00)
[2022-03-29] MEDS: Ranolazine 500 MG TAB.ER.12H PO SCH ×2 (09:03→21:01)
[2022-03-29] MEDS: Venlafaxine XR (24 HR) 75 MG CAP.ER.24H PO SCH ×2 (09:03→10:22)
[2022-03-29] MEDS: hydrALAZINE 25 MG TABLET PO SCH ×2 (09:04→15:50)
[2022-03-29] MEDS: *HR* Digoxin 0.125 MG TABLET PO SCH (09:07)
[2022-03-29] MEDS: Aspirin Enteric Coated 81 MG Tablet PO SCH (15:50)
[2022-03-30] MEDS: hydrALAZINE 25 MG TABLET PO SCH ×4 (00:06→23:41)
[2022-03-30] MEDS: Albumin 25% 25gram/100mL 25 GM/100 ML IV.SOLN IVPB SCH ×4 (00:06→23:42)
[2022-03-30] MEDS: Cefepime HCl 2,000 MG in 0.9 % Sodium Chloride 10 ML IVP SCH (01:40)
[2022-03-30] MEDS: Ipratropium/Albuterol Neb 3 ML IH SCH ×6 (03:52→23:44)
[2022-03-30 04:37] LABS: Hematocrit 30.3 % (35.3-44.9); Mean Corpuscular HGB Conc 31.7 g/dL (31.6-35.5); Mean Corpuscular Hemoglobin 29.1 pg (28.0-33.3); Mean Corpuscular Volume 91.8 fL (83.0-100.0); Mean Platelet Volume 9.5 fL (9.4-12.4); Platelet Count 176 K/mcL (140-400); Red Cell Distribution Width 16.2 % (11.5-14.5); White Blood Count 7.3 K/mcL (4.3-11.1)
[2022-03-30 04:40] LABS: Hemoglobin 9.6 g/dL (11.5-15.4)
[2022-03-30 04:55] LABS: Calcium 10.3 mg/dL (8.6-10.3); Magnesium 2.1 mg/dL (1.6-2.6); Potassium 3.6 mEq/L (3.5-5.1)
[2022-03-30] MEDS: Sacubitril/Valsartan 24/26 MG 1 TABLET PO SCH ×2 (06:20→17:56)
[2022-03-30] MEDS: Heparin 25,000UNIT/250ML 1/2NS 25,000 UNIT/250 ML IV.SOLN IVC SCH (06:21)
[2022-03-30] MEDS: Budesonide/Formoterol 160/4.5 1 PUFF INH IH SCH ×2 (07:21→20:07)
[2022-03-30] MEDS: Ranolazine 500 MG TAB.ER.12H PO SCH ×2 (07:46→20:26)
[2022-03-30] MEDS: Venlafaxine XR (24 HR) 75 MG CAP.ER.24H PO SCH (07:46)
[2022-03-30] MEDS: Lactulose Oral Soln 20 GM/30 ML UDC PO SCH ×2 (07:46→20:26)
[2022-03-30] MEDS: *HR* Digoxin 0.125 MG TABLET PO SCH (07:46)
[2022-03-30] MEDS: Aspirin Enteric Coated 81 MG Tablet PO SCH (07:47)
[2022-03-30 08:37] LABS: Hematocrit 31.6 % (35.3-44.9); Hemoglobin 9.9 g/dL (11.5-15.4); Mean Corpuscular HGB Conc 31.3 g/dL (31.6-35.5); Mean Corpuscular Volume 92.7 fL (83.0-100.0); Mean Platelet Volume 8.9 fL (9.4-12.4); Platelet Count 174 K/mcL (140-400); Red Blood Count 3.41 M/mcL (3.82-4.97); Red Cell Distribution Width 16.6 % (11.5-14.5); White Blood Count 8.8 K/mcL (4.3-11.1)
[2022-03-30 08:56] LABS: Calcium 10.6 mg/dL (8.6-10.3); Potassium 3.5 mEq/L (3.5-5.1)
[2022-03-30] MEDS ORDERED: ALPRAZolam 0.5 MG TABLET PO SCH (09:00)
[2022-03-30 09:59] LABS: Troponin I 1.01 ng/mL (< 0.04)
[2022-03-30] MEDS: Metoprolol XL (24 HR) Succ 25 MG TAB.ER.24H PO SCH (14:02)
[2022-03-30] MEDS: ALPRAZolam 0.5 MG TABLET PO SCH (20:26)
[2022-03-31] MEDS: Acetaminophen 325 MG TABLET PO PRN (01:33)
[2022-03-31] MEDS: Ipratropium/Albuterol Neb 3 ML IH SCH ×6 (03:35→23:58)
[2022-03-31 06:03] LABS: Calcium 9.8 mg/dL (8.6-10.3); Potassium 3.2 mEq/L (3.5-5.1)
[2022-03-31 06:13] LABS: Eosinophils # 0.2 K/mcL (0.0-0.6); Eosinophils % 2.9 %; Hematocrit 29.5 % (35.3-44.9); Hemoglobin 9.4 g/dL (11.5-15.4); Immature Granulocytes % 0.8 % (0-4); Lymphocytes # 0.5 K/mcL (0.6-4.6); Lymphocytes % 5.7 %; Mean Corpuscular HGB Conc 31.9 g/dL (31.6-35.5); Mean Corpuscular Hemoglobin 28.8 pg (28.0-33.3); Mean Corpuscular Volume 90.5 fL (83.0-100.0); Mean Platelet Volume 9.7 fL (9.4-12.4); Monocytes # 0.7 K/mcL (0.0-1.3); Monocytes % 9.2 %; Neutrophils # 6.4 K/mcL (1.6-8.9); Platelet Count 172 K/mcL (140-400); Red Blood Count 3.26 M/mcL (3.82-4.97); Red Cell Distribution Width 16.6 % (11.5-14.5); Segmented Neutrophils % 81.4 %; White Blood Count 7.8 K/mcL (4.3-11.1)
[2022-03-31] MEDS: Sacubitril/Valsartan 24/26 MG 1 TABLET PO SCH (06:13)
[2022-03-31 06:17] LABS: Folate 11.5 ng/mL (3.0-16.0)
[2022-03-31] MEDS: Budesonide/Formoterol 160/4.5 1 PUFF INH IH SCH ×2 (07:46→20:09)
[2022-03-31] MEDS: hydrALAZINE 25 MG TABLET PO SCH ×2 (08:46→16:14)
[2022-03-31] MEDS: Lactulose Oral Soln 20 GM/30 ML UDC PO SCH ×2 (09:00→21:03)
[2022-03-31] MEDS: Potassium Chloride Elixir 20 MEQ/15 ML UDC PO ONE (09:00)
[2022-03-31] MEDS: Venlafaxine XR (24 HR) 75 MG CAP.ER.24H PO SCH (09:03)
[2022-03-31] MEDS: Ranolazine 500 MG TAB.ER.12H PO SCH ×2 (09:04→21:04)
[2022-03-31] MEDS: Apixaban 5 MG TABLET PO SCH (09:04)
[2022-03-31] MEDS: Metoprolol XL (24 HR) Succ 25 MG TAB.ER.24H PO SCH (09:04)
[2022-03-31] MEDS: Furosemide 40 MG TABLET PO SCH ×2 (09:05→16:14)
[2022-03-31] MEDS: *HR* Digoxin 0.125 MG TABLET PO SCH (09:05)
[2022-03-31] MEDS: Albumin 25% 25gram/100mL 25 GM/100 ML IV.SOLN IVPB SCH ×2 (09:08→16:10)
[2022-03-31 10:30] LABS: ANA IgG by ELISA NONE DETECTED (None Detected)
[2022-03-31 10:30] LABS: Kappa Qnt Free Light Chains 42.52 mg/L (3.30-19.40); Lambda Qnt Free Light Chains 41.13 mg/L (5.71-26.30)
[2022-03-31 10:37] LABS: Mycoplasma pneumoniae IgG 0.01 U/L (<=0.09)
[2022-03-31] MEDS: Iron Sucrose Complex 200 MG in 0.9 % Sodium Chloride 100 ML IVPB SCH (11:24)
[2022-03-31] MEDS ORDERED: Furosemide 40 MG/4 ML VIAL IVP ONE ×2 (13:30→17:45)
[2022-03-31] MEDS ORDERED: SODIUM CHLORIDE/NAHCO3/KCL/PEG 4,000 ML SOLN.RECON PO ONE (14:30)
[2022-03-31 17:55] LABS: Calcium 9.1 mg/dL (8.6-10.3); Potassium 4.6 mEq/L (3.5-5.1)
[2022-03-31] MEDS: ALPRAZolam 0.5 MG TABLET PO SCH ×2 (18:15→21:03)
[2022-03-31 19:26] LABS: ANCA IFA Titer <1:20 (<1:20)
[2022-03-31 20:42] LABS: Hematocrit 29.7 % (35.3-44.9); Mean Corpuscular Hemoglobin 29.3 pg (28.0-33.3); Mean Corpuscular Volume 91.7 fL (83.0-100.0); Mean Platelet Volume 9.5 fL (9.4-12.4); Platelet Count 145 K/mcL (140-400); Red Blood Count 3.24 M/mcL (3.82-4.97); Red Cell Distribution Width 16.4 % (11.5-14.5); White Blood Count 7.9 K/mcL (4.3-11.1)
[2022-03-31 20:43] LABS: Hemoglobin 9.5 g/dL (11.5-15.4)
[2022-03-31 20:57] LABS: BUN/Creatinine Ratio 44 (6-26); Blood Urea Nitrogen 44 mg/dL (8-23); Calcium 9.8 mg/dL (8.6-10.3); Carbon Dioxide 28 mEq/L (23-29); Chloride 101 mEq/L (98-107); Glucose 173 mg/dL (70-105); Magnesium 1.6 mg/dL (1.6-2.6); Osmolality,Calculated 297 (280-300); Phosphorous 1.4 mg/dL (2.7-4.5); Potassium 3.7 mEq/L (3.5-5.1); Sodium 136 mEq/L (136-145); eGFR For African Americans > 60 (> 60); eGFR For Non-African Americans 54 (> 60)
[2022-03-31] MEDS ORDERED: Magnesium Oxide 400 MG TABLET PO ONE (21:39)
[2022-04-01] MEDS: Albumin 25% 25gram/100mL 25 GM/100 ML IV.SOLN IVPB SCH ×4 (00:45→23:48)
[2022-04-01] MEDS: hydrALAZINE 25 MG TABLET PO SCH ×4 (00:45→23:48)
[2022-04-01] MEDS: Ipratropium/Albuterol Neb 3 ML IH SCH ×6 (03:53→23:32)
[2022-04-01 04:56] LABS: Alpha 2 Globulin (PEP) 0.67 g/dL (0.48-1.05); Beta Globulin (PEP) 0.66 g/dL (0.48-1.10)
[2022-04-01 06:05] LABS: Hematocrit 30.6 % (35.3-44.9); Hemoglobin 9.7 g/dL (11.5-15.4); Mean Corpuscular HGB Conc 31.7 g/dL (31.6-35.5); Mean Corpuscular Volume 91.6 fL (83.0-100.0); Mean Platelet Volume 9.5 fL (9.4-12.4); Platelet Count 147 K/mcL (140-400); Red Blood Count 3.34 M/mcL (3.82-4.97); Red Cell Distribution Width 16.5 % (11.5-14.5); White Blood Count 7.7 K/mcL (4.3-11.1)
[2022-04-01] MEDS: Budesonide/Formoterol 160/4.5 1 PUFF INH IH SCH ×2 (07:30→20:26)
[2022-04-01] MEDS: Metoprolol XL (24 HR) Succ 25 MG TAB.ER.24H PO SCH (08:19)
[2022-04-01] MEDS: *HR* Digoxin 0.125 MG TABLET PO SCH (08:19)
[2022-04-01] MEDS: Ringers Solution, Lactated 1,000 ML IVC SCH (09:28)
[2022-04-01] MEDS ORDERED: Albuterol 2.5 MG/3 ML NEBULIZER IH PRN (09:40)
[2022-04-01] MEDS ORDERED: Albuterol 2.5 MG/3 ML NEBULIZER ONE (09:41)
[2022-04-01] MEDS ORDERED: Lidocaine -MPF 2% 2 ML VIAL ONE (09:46)
[2022-04-01] MEDS ORDERED: *HR* Propofol 200 MG/20 ML VIAL IVP ONE (09:47)
[2022-04-01] MEDS ORDERED: Ketamine *HR* 500 MG/10 ML MDV ONE (10:01)
[2022-04-01 10:17] LABS: BUN/Creatinine Ratio 43 (6-26); Blood Urea Nitrogen 37 mg/dL (8-23); Carbon Dioxide 28 mEq/L (23-29); Chloride 100 mEq/L (98-107); Glucose 137 mg/dL (70-105); Osmolality,Calculated 293 (280-300); Sodium 136 mEq/L (136-145); eGFR For African Americans > 60 (> 60); eGFR For Non-African Americans > 60 (> 60)
[2022-04-01] MEDS: Ranolazine 500 MG TAB.ER.12H PO SCH ×2 (11:02→22:26)
[2022-04-01] MEDS: Lactulose Oral Soln 20 GM/30 ML UDC PO SCH ×2 (11:02→22:25)
[2022-04-01] MEDS: Venlafaxine XR (24 HR) 75 MG CAP.ER.24H PO SCH (11:03)
[2022-04-01] MEDS: Furosemide 40 MG TABLET PO SCH ×2 (11:48→17:40)
[2022-04-01 12:30] LABS: ANCA IFA Pattern NONE DETECTED (None Detected); Serine Protease-3 Antibody 1 AU/mL (0-19)
[2022-04-01 12:37] LABS: IFE Reflexed NOT DONE
[2022-04-01] MEDS: Iron Sucrose Complex 200 MG in 0.9 % Sodium Chloride 100 ML IVPB SCH (12:44)
[2022-04-01] MEDS: ALPRAZolam 0.5 MG TABLET PO SCH (22:25)
[2022-04-01] MEDS: Apixaban 5 MG TABLET PO SCH (22:26)
[2022-04-02 03:26] LABS: Hematocrit 29.4 % (35.3-44.9); Hemoglobin 9.5 g/dL (11.5-15.4); Mean Corpuscular HGB Conc 32.3 g/dL (31.6-35.5); Mean Corpuscular Hemoglobin 29.1 pg (28.0-33.3); Mean Corpuscular Volume 89.9 fL (83.0-100.0); Mean Platelet Volume 9.7 fL (9.4-12.4); Platelet Count 129 K/mcL (140-400); Red Blood Count 3.27 M/mcL (3.82-4.97); Red Cell Distribution Width 16.2 % (11.5-14.5)
[2022-04-02] MEDS: Ipratropium/Albuterol Neb 3 ML IH SCH ×6 (03:33→23:51)
[2022-04-02 03:47] LABS: BUN/Creatinine Ratio 39 (6-26); Blood Urea Nitrogen 32 mg/dL (8-23); Calcium 10.6 mg/dL (8.6-10.3); Carbon Dioxide 24 mEq/L (23-29); Chloride 100 mEq/L (98-107); Glucose 143 mg/dL (70-105); Osmolality,Calculated 293 (280-300); Potassium 3.4 mEq/L (3.5-5.1); Sodium 137 mEq/L (136-145); eGFR For African Americans > 60 (> 60); eGFR For Non-African Americans > 60 (> 60)
[2022-04-02] MEDS: Acetaminophen 325 MG TABLET PO PRN (04:47)
[2022-04-02] MEDS: Ringers Solution, Lactated 1,000 ML IVC SCH (06:49)
[2022-04-02] MEDS ORDERED: Potassium Chloride Elixir 20 MEQ/15 ML UDC PO ONE (07:02)
[2022-04-02] MEDS: Budesonide/Formoterol 160/4.5 1 PUFF INH IH SCH ×2 (07:35→19:38)
[2022-04-02] MEDS ORDERED: Cefepime HCl 2,000 MG in 0.9 % Sodium Chloride Mini Bag 100 ML IVPB SCH (09:00)
[2022-04-02] MEDS: Sacubitril/Valsartan 24/26 MG 1 TABLET PO SCH (09:28)
[2022-04-02] MEDS: Ranolazine 500 MG TAB.ER.12H PO SCH ×2 (09:29→21:47)
[2022-04-02] MEDS: hydrALAZINE 25 MG TABLET PO SCH ×2 (09:29→15:20)
[2022-04-02] MEDS: Venlafaxine XR (24 HR) 75 MG CAP.ER.24H PO SCH (09:29)
[2022-04-02] MEDS: Furosemide 40 MG TABLET PO SCH ×2 (09:29→17:54)
[2022-04-02] MEDS: Apixaban 5 MG TABLET PO SCH ×2 (09:29→21:47)
[2022-04-02] MEDS: Metoprolol XL (24 HR) Succ 25 MG TAB.ER.24H PO SCH (09:29)
[2022-04-02] MEDS: *HR* Digoxin 0.125 MG TABLET PO SCH (09:30)
[2022-04-02] MEDS: Lactulose Oral Soln 20 GM/30 ML UDC PO SCH ×2 (09:31→21:47)
[2022-04-02] MEDS: Iron Sucrose Complex 200 MG in 0.9 % Sodium Chloride 100 ML IVPB SCH (10:18)
[2022-04-02] MEDS: Potassium Chloride Elixir 20 MEQ/15 ML UDC PO ONE (10:18)
[2022-04-02 12:14] LABS: Bacteria,Urine Few per hpf (None-Few); Bilirubin,Urine Negative (Negative); Blood,Urine Trace (Negative); Clarity,Urine Turbid (Clear); Color,Urine Yellow (Yellow); Glucose,Urine (UA) Normal (Normal); Hyaline Casts,Urine Few per lpf (None Seen); Ketones,Urine Negative (Negative); Leukocyte Esterase,Urine Moderate (Negative); Mucus,Urine Few per lpf (None-Few); Nitrite,Urine Negative (Negative); PH,Urine 6.5 pH Units (5.0-8.0); Protein,Urine 200 mg/dL (Neg-Trace); Specific Gravity,Urine 1.021 (1.010-1.025); Squamous Epithelial Cell,Urine Few per hpf (None-Few); Transitional Epi Cells,Urine Few per hpf (None-Few); Urobilinogen,Urine Normal (Normal)
[2022-04-02] MEDS: Cefepime HCl 2,000 MG in 0.9 % Sodium Chloride 10 ML IVP SCH (12:45)
[2022-04-02] MEDS: Albumin 25% 25gram/100mL 25 GM/100 ML IV.SOLN IVPB SCH (17:53)
[2022-04-02] MEDS: *HR* OxyCODONE Immed Rel 5 MG TABLET PO PRN (17:53)
[2022-04-02] MEDS: ALPRAZolam 0.25 MG TABLET PO SCH (21:47)
[2022-04-03] MEDS: Albumin 25% 25gram/100mL 25 GM/100 ML IV.SOLN IVPB SCH ×4 (00:20→23:24)
[2022-04-03] MEDS: Ipratropium/Albuterol Neb 3 ML IH SCH ×6 (03:28→23:16)
[2022-04-03 04:21] LABS: Hematocrit 28.9 % (35.3-44.9); Hemoglobin 9.2 g/dL (11.5-15.4); Mean Corpuscular HGB Conc 31.8 g/dL (31.6-35.5); Mean Corpuscular Volume 91.2 fL (83.0-100.0); Mean Platelet Volume 10.6 fL (9.4-12.4); Platelet Count 134 K/mcL (140-400); Red Blood Count 3.17 M/mcL (3.82-4.97); Red Cell Distribution Width 16.7 % (11.5-14.5); White Blood Count 9.6 K/mcL (4.3-11.1)
[2022-04-03 04:36] LABS: BUN/Creatinine Ratio 37 (6-26); Blood Urea Nitrogen 32 mg/dL (8-23); Calcium 10.7 mg/dL (8.6-10.3); Carbon Dioxide 25 mEq/L (23-29); Chloride 103 mEq/L (98-107); Glucose 108 mg/dL (70-105); Magnesium 1.5 mg/dL (1.6-2.6); Osmolality,Calculated 295 (280-300); Potassium 3.4 mEq/L (3.5-5.1); Sodium 139 mEq/L (136-145); eGFR For African Americans > 60 (> 60); eGFR For Non-African Americans > 60 (> 60)
[2022-04-03] MEDS ORDERED: Potassium Chloride Elixir 20 MEQ/15 ML UDC PO ONE (07:12)
[2022-04-03] MEDS: Ringers Solution, Lactated 1,000 ML IVC SCH (07:21)
[2022-04-03] MEDS: Budesonide/Formoterol 160/4.5 1 PUFF INH IH SCH ×2 (07:34→19:34)
[2022-04-03] MEDS: Venlafaxine XR (24 HR) 75 MG CAP.ER.24H PO SCH (07:57)
[2022-04-03] MEDS: *HR* Digoxin 0.125 MG TABLET PO SCH (07:57)
[2022-04-03] MEDS: Apixaban 5 MG TABLET PO SCH ×2 (07:58→20:09)
[2022-04-03] MEDS: Ranolazine 500 MG TAB.ER.12H PO SCH ×2 (07:58→20:09)
[2022-04-03] MEDS: Furosemide 40 MG TABLET PO SCH ×2 (07:58→15:26)
[2022-04-03] MEDS: Metoprolol XL (24 HR) Succ 25 MG TAB.ER.24H PO SCH (07:59)
[2022-04-03] MEDS: Lactulose Oral Soln 20 GM/30 ML UDC PO SCH ×2 (07:59→20:09)
[2022-04-03] MEDS: Cefepime HCl 2,000 MG in 0.9 % Sodium Chloride 10 ML IVP SCH (07:59)
[2022-04-03] MEDS: Iron Sucrose Complex 200 MG in 0.9 % Sodium Chloride 100 ML IVPB SCH (12:29)
[2022-04-03] MEDS: ALPRAZolam 0.25 MG TABLET PO SCH (20:09)
[2022-04-04] MEDS: Ipratropium/Albuterol Neb 3 ML IH SCH ×6 (03:28→23:02)
[2022-04-04 04:32] LABS: Hemoglobin 9.5 g/dL (11.5-15.4); Mean Corpuscular HGB Conc 31.7 g/dL (31.6-35.5); Mean Corpuscular Hemoglobin 28.7 pg (28.0-33.3); Mean Corpuscular Volume 90.6 fL (83.0-100.0); Mean Platelet Volume 10.3 fL (9.4-12.4); Platelet Count 163 K/mcL (140-400); Red Blood Count 3.31 M/mcL (3.82-4.97); Red Cell Distribution Width 16.8 % (11.5-14.5); White Blood Count 9.2 K/mcL (4.3-11.1)
[2022-04-04 04:52] LABS: BUN/Creatinine Ratio 34 (6-26); Blood Urea Nitrogen 31 mg/dL (8-23); Carbon Dioxide 23 mEq/L (23-29); Chloride 100 mEq/L (98-107); Glucose 125 mg/dL (70-105); Osmolality,Calculated 296 (280-300); Potassium 3.3 mEq/L (3.5-5.1); Sodium 139 mEq/L (136-145); eGFR For African Americans > 60 (> 60); eGFR For Non-African Americans > 60 (> 60)
[2022-04-04] MEDS ORDERED: Ondansetron 4 MG/2 ML VIAL IVP ONE (05:26)
[2022-04-04] MEDS ORDERED: Potassium Chloride Elixir 20 MEQ/15 ML UDC PO ONE (07:22)
[2022-04-04] MEDS: Budesonide/Formoterol 160/4.5 1 PUFF INH IH SCH ×2 (07:33→19:43)
[2022-04-04] MEDS: Iron Sucrose Complex 200 MG in 0.9 % Sodium Chloride 100 ML IVPB SCH (08:36)
[2022-04-04] MEDS: Lactulose Oral Soln 20 GM/30 ML UDC PO SCH ×2 (08:37→20:02)
[2022-04-04] MEDS: Cefepime HCl 2,000 MG in 0.9 % Sodium Chloride 10 ML IVP SCH ×2 (08:37→20:02)
[2022-04-04] MEDS: Metoprolol XL (24 HR) Succ 25 MG TAB.ER.24H PO SCH (08:38)
[2022-04-04] MEDS: Venlafaxine XR (24 HR) 75 MG CAP.ER.24H PO SCH (08:38)
[2022-04-04] MEDS: Furosemide 40 MG TABLET PO SCH ×2 (08:38→16:22)
[2022-04-04] MEDS: Ranolazine 500 MG TAB.ER.12H PO SCH ×2 (08:38→20:03)
[2022-04-04] MEDS: Apixaban 5 MG TABLET PO SCH ×2 (08:38→20:03)
[2022-04-04] MEDS: *HR* Digoxin 0.125 MG TABLET PO SCH (08:38)
[2022-04-04 08:42] LABS: Magnesium 1.7 mg/dL (1.6-2.6)
[2022-04-04] MEDS: Albumin 25% 25gram/100mL 25 GM/100 ML IV.SOLN IVPB SCH ×2 (09:50→16:22)
[2022-04-04] MEDS: ALPRAZolam 0.25 MG TABLET PO SCH (20:03)
[2022-04-04] MEDS: Sacubitril/Valsartan 24/26 MG 1 TABLET PO SCH (20:03)
[2022-04-04] MEDS: Magnesium Oxide 400 MG TABLET PO SCH (20:03)
[2022-04-05] MEDS: Albumin 25% 25gram/100mL 25 GM/100 ML IV.SOLN IVPB SCH ×2 (00:54→08:41)
[2022-04-05] MEDS: Ipratropium/Albuterol Neb 3 ML IH SCH ×6 (03:47→23:30)
[2022-04-05 06:35] LABS: Hematocrit 32.1 % (35.3-44.9); Hemoglobin 9.9 g/dL (11.5-15.4); Mean Corpuscular HGB Conc 30.8 g/dL (31.6-35.5); Mean Corpuscular Hemoglobin 28.6 pg (28.0-33.3); Mean Corpuscular Volume 92.8 fL (83.0-100.0); Mean Platelet Volume 10.9 fL (9.4-12.4); Platelet Count 196 K/mcL (140-400); Red Blood Count 3.46 M/mcL (3.82-4.97); Red Cell Distribution Width 17.1 % (11.5-14.5); White Blood Count 10.9 K/mcL (4.3-11.1)
[2022-04-05 06:54] LABS: BUN/Creatinine Ratio 37 (6-26); Blood Urea Nitrogen 36 mg/dL (8-23); Carbon Dioxide 24 mEq/L (23-29); Chloride 106 mEq/L (98-107); Glucose 129 mg/dL (70-105); Magnesium 1.7 mg/dL (1.6-2.6); Osmolality,Calculated 300 (280-300); Phosphorous 2.6 mg/dL (2.7-4.5); Potassium 3.5 mEq/L (3.5-5.1); Sodium 140 mEq/L (136-145); eGFR For African Americans > 60 (> 60); eGFR For Non-African Americans 56 (> 60)
[2022-04-05] MEDS: Ringers Solution, Lactated 1,000 ML IVC SCH ×3 (07:24→14:03)
[2022-04-05] MEDS: Budesonide/Formoterol 160/4.5 1 PUFF INH IH SCH ×2 (07:45→20:25)
[2022-04-05] MEDS: Ranolazine 500 MG TAB.ER.12H PO SCH ×2 (08:41→20:02)
[2022-04-05] MEDS: Furosemide 40 MG TABLET PO SCH ×2 (08:42→16:39)
[2022-04-05] MEDS: *HR* Digoxin 0.125 MG TABLET PO SCH (08:42)
[2022-04-05] MEDS: Apixaban 5 MG TABLET PO SCH ×2 (08:43→20:02)
[2022-04-05] MEDS: Lactulose Oral Soln 20 GM/30 ML UDC PO SCH ×2 (08:43→20:01)
[2022-04-05] MEDS: Cefepime HCl 2,000 MG in 0.9 % Sodium Chloride 10 ML IVP SCH ×2 (08:43→20:03)
[2022-04-05] MEDS: Venlafaxine XR (24 HR) 75 MG CAP.ER.24H PO SCH (08:43)
[2022-04-05] MEDS: Magnesium Oxide 400 MG TABLET PO SCH ×2 (08:43→20:01)
[2022-04-05] MEDS: Metoprolol XL (24 HR) Succ 25 MG TAB.ER.24H PO SCH (08:43)
[2022-04-05] MEDS: Sacubitril/Valsartan 24/26 MG 1 TABLET PO SCH ×2 (08:52→20:02)
[2022-04-05] MEDS: *HR* OxyCODONE Immed Rel 5 MG TABLET PO PRN ×2 (08:52→17:24)
[2022-04-05] MEDS: Iron Sucrose Complex 200 MG in 0.9 % Sodium Chloride 100 ML IVPB SCH (10:09)
[2022-04-05] MEDS: ALPRAZolam 0.25 MG TABLET PO SCH (20:01)
[2022-04-06] MEDS: Ipratropium/Albuterol Neb 3 ML IH SCH ×5 (04:23→20:34)
[2022-04-06 04:36] LABS: Hematocrit 30.6 % (35.3-44.9); Hemoglobin 9.4 g/dL (11.5-15.4); Mean Corpuscular HGB Conc 30.7 g/dL (31.6-35.5); Mean Corpuscular Hemoglobin 28.7 pg (28.0-33.3); Mean Corpuscular Volume 93.3 fL (83.0-100.0); Mean Platelet Volume 10.4 fL (9.4-12.4); Platelet Count 210 K/mcL (140-400); Red Blood Count 3.28 M/mcL (3.82-4.97); Red Cell Distribution Width 17.2 % (11.5-14.5); White Blood Count 11.7 K/mcL (4.3-11.1)
[2022-04-06 04:55] LABS: BUN/Creatinine Ratio 35 (6-26); Blood Urea Nitrogen 30 mg/dL (8-23); Carbon Dioxide 23 mEq/L (23-29); Chloride 109 mEq/L (98-107); Glucose 111 mg/dL (70-105); Osmolality,Calculated 299 (280-300); Potassium 3.4 mEq/L (3.5-5.1); Sodium 141 mEq/L (136-145); eGFR For African Americans > 60 (> 60); eGFR For Non-African Americans > 60 (> 60)
[2022-04-06] MEDS: Budesonide/Formoterol 160/4.5 1 PUFF INH IH SCH ×2 (07:39→20:34)
[2022-04-06] MEDS ORDERED: Furosemide 40 MG/4 ML VIAL IVP ONE (08:40)
[2022-04-06] MEDS: Furosemide 40 MG TABLET PO SCH (08:41)
[2022-04-06] MEDS: Cefepime HCl 2,000 MG in 0.9 % Sodium Chloride 10 ML IVP SCH ×2 (09:31→21:17)
[2022-04-06] MEDS: Lactulose Oral Soln 20 GM/30 ML UDC PO SCH ×2 (09:31→21:17)
[2022-04-06] MEDS: Apixaban 5 MG TABLET PO SCH ×2 (09:32→21:18)
[2022-04-06] MEDS: Iron Sucrose Complex 200 MG in 0.9 % Sodium Chloride 100 ML IVPB SCH (09:32)
[2022-04-06] MEDS: Ranolazine 500 MG TAB.ER.12H PO SCH ×2 (09:32→21:19)
[2022-04-06] MEDS: Sacubitril/Valsartan 24/26 MG 1 TABLET PO SCH ×2 (09:32→21:24)
[2022-04-06] MEDS: Magnesium Oxide 400 MG TABLET PO SCH ×2 (09:32→21:18)
[2022-04-06] MEDS: *HR* Digoxin 0.125 MG TABLET PO SCH (09:33)
[2022-04-06] MEDS: Venlafaxine XR (24 HR) 75 MG CAP.ER.24H PO SCH (09:33)
[2022-04-06] MEDS: Metoprolol XL (24 HR) Succ 25 MG TAB.ER.24H PO SCH (09:33)
[2022-04-06] MEDS: *HR* OxyCODONE Immed Rel 5 MG TABLET PO PRN ×2 (13:59→21:18)
[2022-04-06] MEDS: ALPRAZolam 0.25 MG TABLET PO SCH (21:18)
[2022-04-07] MEDS: Ipratropium/Albuterol Neb 3 ML IH SCH ×5 (00:24→15:46)
[2022-04-07 07:34] VITALS: PULSE 84
[2022-04-07] MEDS: Budesonide/Formoterol 160/4.5 1 PUFF INH IH SCH (07:41)
[2022-04-07] MEDS: Venlafaxine XR (24 HR) 75 MG CAP.ER.24H PO SCH (09:40)
[2022-04-07] MEDS: Ranolazine 500 MG TAB.ER.12H PO SCH (09:41)
[2022-04-07] MEDS: Apixaban 5 MG TABLET PO SCH (09:41)
[2022-04-07] MEDS: *HR* Digoxin 0.125 MG TABLET PO SCH (09:41)
[2022-04-07] MEDS: Magnesium Oxide 400 MG TABLET PO SCH (09:41)
[2022-04-07] MEDS: Metoprolol XL (24 HR) Succ 25 MG TAB.ER.24H PO SCH (09:41)
[2022-04-07] MEDS: Lactulose Oral Soln 20 GM/30 ML UDC PO SCH (09:42)
[2022-04-07] MEDS: Sacubitril/Valsartan 24/26 MG 1 TABLET PO SCH (09:42)
[2022-04-07] MEDS: Cefepime HCl 2,000 MG in 0.9 % Sodium Chloride 10 ML IVP SCH (09:42)
[2022-04-07] MEDS: *HR* OxyCODONE Immed Rel 5 MG TABLET PO PRN (09:55)
[2022-04-07 12:28] VITALS: BP 135/78; TEMP 97.4
[2022-04-07 14:13] LABS: Adenovirus Not Detected (Not Detect); Bordetella Pertussis Not Detected (Not Detect); Chlamydophila pneumoniae Not Detected (Not Detect); Coronavirus 229E Not Detected (Not Detect); Coronavirus HKU1 Not Detected (Not Detect); Coronavirus NL63 Not Detected (Not Detect); Coronavirus OC43 Not Detected (Not Detect); Human Metapneumovirus Not Detected (Not Detect); Human Rhinovirus/Enterovirus Not Detected (Not Detect); Influenza A Subtype 2009 H1 Not Detected (Not Detect); Influenza B Not Detected (Not Detect); Mycoplasma pneumoniae Not Detected (Not Detect); Parainfluenza Virus 1 Not Detected (Not Detect); Parainfluenza Virus 2 Not Detected (Not Detect); Parainfluenza Virus 3 Not Detected (Not Detect); Parainfluenza Virus 4 Not Detected (Not Detect); Respiratory Syncytial Virus Not Detected (Not Detect); SARS-CoV-2 Not Detected (Not Detect)
[2022-04-07 15:48] VITALS: O2SAT 95
== END 2022-04-07 16:32 | DRG 280 ==
LOC: 2NNU 22:14 → EMEROOARM 22:14 → SUATTDRO 03-28 03:17 → 2NNU 03-28 03:45 → 3ANU 04-01 09:01
PROVIDERS: ADMIT Internal Medicine; ATTEND Family Medicine